=== PATIENT | female | born 1945 | race Caucasian/White ===

== ENCOUNTER 2016-10-09 11:41 | Inpatient (IN) ==
[2016-10-09 15:21] LABS: Basophils % 0.3 %; Eosinophils # 0.1 K/mcL (0.0-0.6); Eosinophils % 0.6 %; Hematocrit 29.5 % (35.3-44.9); Hemoglobin 9.6 g/dL (11.5-15.4); Immature Granulocytes % 0.7 % (0-4); Lymphocytes # 0.7 K/mcL (0.6-4.6); Lymphocytes % 5.6 %; Mean Corpuscular HGB Conc 32.5 g/dL (31.6-35.5); Mean Corpuscular Hemoglobin 30.9 pg (28.0-33.3); Mean Corpuscular Volume 94.9 fL (83.0-100.0); Mean Platelet Volume 9.5 fL (9.4-12.4); Monocytes # 0.5 K/mcL (0.0-1.3); Monocytes % 4.6 %; Neutrophils # 10.5 K/mcL (1.6-8.9); Platelet Count 389 K/mcL (140-400); Red Blood Count 3.11 M/mcL (3.82-4.97); Red Cell Distribution Width 15.4 % (11.5-14.5); Segmented Neutrophils % 88.2 %
[2016-10-09 15:27] LABS: INR 1.4; Prothrombin Time 15.2 Seconds (9.4-12.1)
[2016-10-09 15:35] LABS: Calcium 8.4 mg/dL (8.6-10.8); Potassium 2.6 mEq/L (3.5-4.5)
[2016-10-10 09:33] LABS: Acinetobacter baumannii by PCR Not Detected (Not Detect); Candida albicans by PCR Not Detected (Not Detect); Candida glabrata by PCR Not Detected (Not Detect); Candida krusei by PCR Not Detected (Not Detect); Candida parapsilosis by PCR Not Detected (Not Detect); Candida tropicalis by PCR Not Detected (Not Detect); Enterococcus by PCR Not Detected (Not Detect); Escherichia coli by PCR Not Detected (Not Detect); Klebsiella oxytoca by PCR Not Detected (Not Detect); Klebsiella pneumoniae by PCR Not Detected (Not Detect); Pseudomonas aeruginosa by PCR Not Detected (Not Detect); Serratia marcescens by PCR Not Detected (Not Detect); Staphylococcus aureus by PCR ***DETECTED*** (Not Detect); Streptococcus agalactiae(B)PCR Not Detected (Not Detect); Streptococcus by PCR Not Detected (Not Detect); Streptococcus pneumoniae PCR Not Detected (Not Detect); Streptococcus pyogenes (A) PCR Not Detected (Not Detect); mecA Methicillin-Resist Gene ***DETECTED*** (Not Detect)
[2016-10-10 09:44] LABS: Calcium 8.9 mg/dL (8.6-10.8); Potassium 3.2 mEq/L (3.5-4.5)
[2016-10-11 06:12] LABS: Hematocrit 26.1 % (35.3-44.9); Hemoglobin 8.4 g/dL (11.5-15.4); Mean Corpuscular HGB Conc 32.2 g/dL (31.6-35.5); Mean Corpuscular Hemoglobin 31.5 pg (28.0-33.3); Mean Corpuscular Volume 97.8 fL (83.0-100.0); Mean Platelet Volume 9.6 fL (9.4-12.4); Platelet Count 417 K/mcL (140-400); Red Blood Count 2.67 M/mcL (3.82-4.97); Red Cell Distribution Width 15.8 % (11.5-14.5)
[2016-10-11 06:25] LABS: Calcium 9.3 mg/dL (8.6-10.8); Potassium 3.9 mEq/L (3.5-4.5)
[2016-10-12 06:04] LABS: Hematocrit 23.2 % (35.3-44.9); Hemoglobin 7.5 g/dL (11.5-15.4); Immature Platelets 2.8 % (1.1-6.1); Mean Corpuscular HGB Conc 32.3 g/dL (31.6-35.5); Mean Corpuscular Hemoglobin 31.1 pg (28.0-33.3); Mean Corpuscular Volume 96.3 fL (83.0-100.0); Mean Platelet Volume 9.5 fL (9.4-12.4); Red Blood Count 2.41 M/mcL (3.82-4.97); Red Cell Distribution Width 15.9 % (11.5-14.5)
[2016-10-12 06:14] LABS: Calcium 9.3 mg/dL (8.6-10.8); Potassium 3.9 mEq/L (3.5-4.5)
[2016-10-12 07:18] LABS: Albumin/Globulin Ratio 0.3 (1.1-2.2); Alkaline Phosphatase 89 Units/L (38-126); Aspartate Amino Transferase 12 Units/L (5-34); Bilirubin,Direct 0.1 mg/dL (0.0-0.5); Bilirubin,Total 0.1 mg/dL (0.2-1.2); Globulin 4.4 g/dL (2.4-3.5); Phosphorous 5.1 mg/dL (2.3-4.7); Total Protein 5.6 g/dL (6.0-8.3)
[2016-10-12 07:20] LABS: Alanine Aminotransferase < 6 Units/L (0-55); Albumin 1.2 g/dL (3.5-5.0)
[2016-10-13 05:26] LABS: Hematocrit 27.9 % (35.3-44.9); Hemoglobin 9.3 g/dL (11.5-15.4); Mean Corpuscular HGB Conc 33.3 g/dL (31.6-35.5); Mean Corpuscular Hemoglobin 30.8 pg (28.0-33.3); Mean Corpuscular Volume 92.4 fL (83.0-100.0); Mean Platelet Volume 9.5 fL (9.4-12.4); Platelet Count 342 K/mcL (140-400); Red Blood Count 3.02 M/mcL (3.82-4.97); Red Cell Distribution Width 17.4 % (11.5-14.5)
[2016-10-13 05:34] LABS: Calcium 9.5 mg/dL (8.6-10.8)
[2016-10-13 08:24] LABS: Hepatitis B Surface Antibody 0.06 mIU/mL; Hepatitis B Surface Antigen Nonreactive (Nonreactive)
[2016-10-15 05:27] LABS: Hematocrit 29.7 % (35.3-44.9); Hemoglobin 9.5 g/dL (11.5-15.4); Mean Corpuscular Hemoglobin 30.3 pg (28.0-33.3); Mean Corpuscular Volume 94.6 fL (83.0-100.0); Mean Platelet Volume 9.3 fL (9.4-12.4); Platelet Count 348 K/mcL (140-400); Red Blood Count 3.14 M/mcL (3.82-4.97); Red Cell Distribution Width 16.3 % (11.5-14.5)
[2016-10-15 05:41] LABS: Calcium 9.4 mg/dL (8.6-10.8); Potassium 3.8 mEq/L (3.5-4.5)
[2016-10-16 07:16] LABS: Calcium 9.5 mg/dL (8.6-10.8)
[2016-10-16 07:49] LABS: Hemoglobin 10.5 g/dL (11.5-15.4); Mean Corpuscular HGB Conc 31.8 g/dL (31.6-35.5); Mean Corpuscular Volume 94.3 fL (83.0-100.0); Mean Platelet Volume 9.3 fL (9.4-12.4); Platelet Count 397 K/mcL (140-400); Red Cell Distribution Width 15.9 % (11.5-14.5)
[2016-10-17 07:06] LABS: Calcium 9.7 mg/dL (8.6-10.8); Potassium 3.9 mEq/L (3.5-4.5)
[2016-10-17 07:49] VITALS: BP 159/80
== END 2016-10-17 16:45 | disposition home health service (06) | DRG 853 ==
LOC: 2ANU 11:52 → SUATTDRO 11:52
PROVIDERS: ADMIT Podiatrist Foot Surgery; ATTEND Podiatrist Foot Surgery

== ENCOUNTER 2016-12-13 14:38 | Inpatient (IN) ==
--- NOTE | 2016-12-13 15:48 | Emergency Department Note ---
Disposition Clinical Impression: Gastroenteritis Disposition: Home, Self-Care Condition: Good Instructions: Gastroenteritis (ED) Reasons to Return/Additional Instructions: Worsening symptoms, any general concerns. Follow-up with your Dr in one-two days. Prescriptions: Ondansetron ODT [Zofran ODT] 4 mg PO Q8HR #15 tab.rapdis Diphenoxylate/Atropine [Lomotil 2.5 mg/0.025 mg] 1 each PO QID #20 tablet Referrals: NO,PCP [Non-Partnered Physician] - Forms: ED Satisfaction Letter Nausea/Vomiting/Diarrhea HPI - General Chief complaint: ED Nausea/Vomiting/Diarrhea Stated complaint: diarrhea/vomiting Time Seen by Provider: 12/13/16 15:07 Source: patient Limitations: no limitations Nursing Notes Reviewed: Yes Vital Signs Reviewed: Yes - History of Present Illness HPI Narrative: Patient presents with complaint nausea vomiting diarrhea this on for 4 days. Patient denies any sick contacts. Patient has had a fever up to 101. Patient denies shortness of breath or chest pain. Patient denies numbness and tingling associated with this. Patient denies prior history of similar symptoms. Patient does have a history of ulcers on her feet and she is unsure if this is related to this. - Related Data Home Medications Medication Instructions Recorded Confirmed Cholecalciferol (Vitamin D3) 1,000 unit PO DAILY 10/10/15 10/09/16 [Vitamin D3] Ergocalciferol (VITAMIN D2) 50,000 unit PO MOTH 10/10/15 10/09/16 [Vitamin D2 (50,000 UNIT)] Insulin LISPRO [HumaLOG] 0 units SQ TIDWM 10/10/15 10/09/16 Multivitamin [Multi-Day Vitamins] 1 tab PO DAILY 10/10/15 10/09/16 Acetaminophen [Tylenol] 1,000 mg PO HS PRN 10/09/16 10/09/16 Cinacalcet [Sensipar] 30 mg PO DAILY 10/09/16 10/09/16 DiphenhydraMINE [Benadryl] 25 mg PO HS 10/09/16 10/09/16 Gabapentin [Neurontin] 100 mg PO TID 10/09/16 10/09/16 Lidocaine/Prilocaine [Emla] 1 appl TP PRN PRN 10/09/16 10/09/16 Sodium Thiosulfate 12.5 gm IV MOWEFR 10/09/16 Previous Rx's Medication Instructions Recorded Aspirin 81 mg PO DAILY #30 tab.chew 08/09/16 Atorvastatin [Lipitor] 40 mg PO HS #30 tablet 08/09/16 Clopidogrel [Plavix] 75 mg PO DAILY #30 tablet 08/09/16 Clopidogrel [Plavix] 75 mg PO DAILY tablet 10/16/16 Vancomycin [Vancocin] 0 each IVPB AD PRN #0 vial 10/16/16 Diphenoxylate/Atropine [Lomotil 1 each PO QID #20 tablet 12/13/16 2.5 mg/0.025 mg] Ondansetron ODT [Zofran ODT] 4 mg PO Q8HR #15 tab.rapdis 12/13/16 Allergies Allergy/AdvReac Type Severity Reaction Status Date / Time Penicillins Allergy Hives Verified 03/22/16 14:43 All systems ED: reviewed and negative except as stated. Past Medical History - Past Medical History Source: patient Medical history: Reports: diabetes, dialysis, hyperlipidemia, hypertension, kidney stones, renal disease, thyroid disease, other Surgical history: Reports: carotid endarterectomy, hysterectomy, thyroidectomy, other Psychiatric history: Reports: no psych history NURSE CHARGE RN history: Reports: no NURSE CHARGE RN history - Social History Smoking Status: Never smoker Smokeless Tobacco Status: No Alcohol use: Reports: none Drug use: Reports: none Physical Exam - General Limitations: no limitations General appearance: alert - Head Head exam: atraumatic, normocephalic, normal inspection - Eye Eye exam: Present: normal appearance, PERRL, EOMI - ENT ENT exam: normal exam, normal oropharynx, mucous membranes moist - Neck Neck exam: Present: normal inspection, full ROM, trachea midline - Chest Chest inspection: Present: normal inspection, symmetric chest wall rise - Respiratory Respiratory exam: Present: normal lung sounds bilaterally - Cardiovascular Cardiovascular exam: Present: regular rate, normal rhythm, normal heart sounds - Abdominal Exam Abdominal exam: Present: soft, Non-Tender. Absent: tenderness, distention, guarding, rebound, rigidity - Extremities Exam Extremities exam: Present: normal inspection, full ROM. Absent: tenderness, pedal edema - Back Exam Back exam: Present: normal inspection, full ROM. Absent: tenderness - Neurological Exam Neurological exam: Present: alert, oriented X3 - Psychiatric Psychiatric exam: Present: normal affect, normal mood - Skin Skin exam: Present: warm, dry, intact, normal color Course Vital Signs Temperature 99.0 F 12/13/16 14:42 Pulse Rate 84 12/13/16 14:42 Respiratory Rate 16 12/13/16 14:42 Blood Pressure 149/69 12/13/16 14:42 O2 Sat by Pulse Oximetry 94 12/13/16 14:42 Temperature 99.0 F 12/13/16 14:42 Pulse Rate 86 12/13/16 19:21 Respiratory Rate 16 12/13/16 19:21 Blood Pressure 139/58 12/13/16 19:21 O2 Sat by Pulse Oximetry 94 12/13/16 19:21 Oxygen Delivery Oxygen Delivery Room Air Nausea/Vomiting/Diarrhea - Differential Diagnosis Likely: traveler's diarrhea, food poisoning, gastroenteritis, clostridium difficile infection, drug-induced nausea and vomitting, dehydration - Lab Data Lab results reviewed: Yes I reviewed the patient's lab results. Result diagrams: 12/13/16 15:57 12/13/16 15:57 Lab Results 12/13/16 12/13/16 12/13/16 Range/Units 15:57 15:57 15:57 WBC 7.4 (4.3-11.1) K/mcL RBC 3.29 L (3.82-4.97) M/mcL Hgb 10.0 L (11.5-15.4) g/dL Hct 32.0 L (35.3-44.9) % MCV 97.3 (83.0-100.0) fL MCH 30.4 (28.0-33.3) pg MCHC 31.3 L (31.6-35.5) g/dL RDW 16.5 H (11.5-14.5) % Plt Count 325 (140-400) K/mcL MPV 9.1 L (9.4-12.4) fL Immature Gran % 0.8 (0-4) % Seg Neutrophils % 84.1 % Lymphocytes % 6.5 % Monocytes % 7.6 % Eosinophils % 0.5 % Basophils % 0.5 % Neutrophils # 6.2 (1.6-8.9) K/mcL Lymphocytes # 0.5 L (0.6-4.6) K/mcL Monocytes # 0.6 (0.0-1.3) K/mcL Eosinophils # 0.0 (0.0-0.6) K/mcL Basophils # 0.0 (0.0-0.2) K/mcL Sodium 138 (136-145) mEq/L Potassium 3.4 L (3.5-4.5) mEq/L Chloride 100 (98-109) mEq/L Carbon Dioxide 28 (19-29) mEq/L BUN 6 L (7-20) mg/dL Creatinine 2.11 H (0.57-1.11) mg/dL Est GFR ( Amer) 28 L (> 60) Est GFR (Non-Af Amer) 23 L (> 60) BUN/Creatinine Ratio 3 L (6-26) Glucose 107 H (70-99) mg/dL Calculated Osmolality 284 (280-300) Lactic Acid (0.5-2.2) mmol/L Calcium 8.0 L (8.6-10.8) mg/dL Total Bilirubin 0.4 (0.2-1.2) mg/dL Direct Bilirubin 0.2 (0.0-0.5) mg/dL Indirect Bilirubin 0.2 (0.0-1.2) mg/dL AST 14 (5-34) Units/L ALT 8 (0-55) Units/L Alkaline Phosphatase 92 (38-126) Units/L Serum Total Protein 6.6 (6.0-8.3) g/dL Albumin 2.1 L (3.5-5.0) g/dL Globulin 4.5 H (2.4-3.5) g/dL Albumin/Globulin Ratio 0.5 L (1.1-2.2) Urine Color (Yellow) Urine Clarity (Clear) Urine pH (5.0-8.0) pH Units Ur Specific [place] (1.010-1.025) Urine Protein (Neg-Trace) mg/dL Urine Glucose (UA) (Normal) mg/dL Urine Ketones (Negative) mg/dL Urine Blood (Negative) Urine Nitrite (Negative) Urine Bilirubin (Negative) Urine Urobilinogen (Normal) mg/dL Ur Leukocyte Esterase (Negative) Urine Microscopic RBC (0-3) per hpf Urine Microscopic WBC (0-3) per hpf Ur Squamous Epith Cells (None-Few) per lpf Urine Bacteria (None-Few) per hpf Hyaline Casts (None-Few) per lpf Urine Yeast (None Seen) per hpf Ur Culture Indicated? (NO) 12/13/16 12/13/16 Range/Units 15:57 19:28 WBC (4.3-11.1) K/mcL RBC (3.82-4.97) M/mcL Hgb (11.5-15.4) g/dL Hct (35.3-44.9) % MCV (83.0-100.0) fL MCH (28.0-33.3) pg MCHC (31.6-35.5) g/dL RDW (11.5-14.5) % Plt Count (140-400) K/mcL MPV (9.4-12.4) fL Immature Gran % (0-4) % Seg Neutrophils % % Lymphocytes % % Monocytes % % Eosinophils % % Basophils % % Neutrophils # (1.6-8.9) K/mcL Lymphocytes # (0.6-4.6) K/mcL Monocytes # (0.0-1.3) K/mcL Eosinophils # (0.0-0.6) K/mcL Basophils # (0.0-0.2) K/mcL Sodium (136-145) mEq/L Potassium (3.5-4.5) mEq/L Chloride (98-109) mEq/L Carbon Dioxide (19-29) mEq/L BUN (7-20) mg/dL Creatinine (0.57-1.11) mg/dL Est GFR ( Amer) (> 60) Est GFR (Non-Af Amer) (> 60) BUN/Creatinine Ratio (6-26) Glucose (70-99) mg/dL Calculated Osmolality (280-300) Lactic Acid 2.4 H (0.5-2.2) mmol/L Calcium (8.6-10.8) mg/dL Total Bilirubin (0.2-1.2) mg/dL Direct Bilirubin (0.0-0.5) mg/dL Indirect Bilirubin (0.0-1.2) mg/dL AST (5-34) Units/L ALT (0-55) Units/L Alkaline Phosphatase (38-126) Units/L Serum Total Protein (6.0-8.3) g/dL Albumin (3.5-5.0) g/dL Globulin (2.4-3.5) g/dL Albumin/Globulin Ratio (1.1-2.2) Urine Color Yellow (Yellow) Urine Clarity Cloudy A (Clear) Urine pH 8.0 (5.0-8.0) pH Units Ur Specific [place] 1.011 (1.010-1.025) Urine Protein >=300 H (Neg-Trace) mg/dL Urine Glucose (UA) 100 H (Normal) mg/dL Urine Ketones Negative (Negative) mg/dL Urine Blood Moderate H (Negative) Urine Nitrite Negative (Negative) Urine Bilirubin Negative (Negative) Urine Urobilinogen Normal (Normal) mg/dL Ur Leukocyte Esterase Large H (Negative) Urine Microscopic RBC 5-15 H (0-3) per hpf Urine Microscopic WBC TNTC H (0-3) per hpf Ur Squamous Epith Cells Many H (None-Few) per lpf Urine Bacteria Few (None-Few) per hpf Hyaline Casts None Seen (None-Few) per lpf Urine Yeast Few H (None Seen) per hpf Ur Culture Indicated? YES A (NO) - Radiology Data Radiology results reviewed: Yes I reviewed the patient's radiology results. Abdomen/Pelvis CT 12/13/16 17:16 IMPRESSION: 1. Left nephrolithiasis including staghorn calculi within the left renal pelvis, unchanged from 2014. 2. Cholelithiasis. 3. Small pleural effusions with adjacent airspace disease that could represent atelectasis and/or pneumonia. 4. Calcifications within a hypodense lesion along segment 2 of the liver have increased from 2014. This is of uncertain clinical significance. If clinically warranted, nonemergent [facility] liver MRI can be performed for further evaluation. D/ / Miki Doran MD / Miki Doran MD Interpreting Provider: Miki Doran MD
[2016-12-13] MEDS ORDERED: 0.9 % Sodium Chloride 250 ML IVC ONE (15:52)
[2016-12-13] MEDS ORDERED: 0.9 % Sodium Chloride 250 ML ONE (15:52)
[2016-12-13] MEDS ORDERED: Ondansetron 4 MG/2 ML VIAL IV ONE (15:53)
[2016-12-13] MEDS ORDERED: *HR* Morphine 2 MG/ML SYRINGE IV ONE (16:06)
[2016-12-13 16:07] LABS: Basophils % 0.5 %; Eosinophils % 0.5 %; Immature Granulocytes % 0.8 % (0-4); Lymphocytes # 0.5 K/mcL (0.6-4.6); Lymphocytes % 6.5 %; Mean Corpuscular HGB Conc 31.3 g/dL (31.6-35.5); Mean Corpuscular Hemoglobin 30.4 pg (28.0-33.3); Mean Corpuscular Volume 97.3 fL (83.0-100.0); Mean Platelet Volume 9.1 fL (9.4-12.4); Monocytes # 0.6 K/mcL (0.0-1.3); Monocytes % 7.6 %; Neutrophils # 6.2 K/mcL (1.6-8.9); Platelet Count 325 K/mcL (140-400); Red Blood Count 3.29 M/mcL (3.82-4.97); Red Cell Distribution Width 16.5 % (11.5-14.5); Segmented Neutrophils % 84.1 %
[2016-12-13 16:25] LABS: Albumin 2.1 g/dL (3.5-5.0); Albumin/Globulin Ratio 0.5 (1.1-2.2); Bilirubin,Direct 0.2 mg/dL (0.0-0.5); Bilirubin,Indirect 0.2 mg/dL (0.0-1.2); Bilirubin,Total 0.4 mg/dL (0.2-1.2); Globulin 4.5 g/dL (2.4-3.5); Total Protein 6.6 g/dL (6.0-8.3)
[2016-12-13 16:26] LABS: Potassium 3.4 mEq/L (3.5-4.5)
[2016-12-13] MEDS ORDERED: *HR* Morphine 2 MG/ML SYRINGE IVP ONE (19:06)
[2016-12-13] MEDS ORDERED: Ondansetron 4 MG/2 ML VIAL IVP ONE (19:06)
[2016-12-13 19:40] LABS: Bilirubin,Urine Negative (Negative); Blood,Urine Moderate (Negative); Clarity,Urine Cloudy (Clear); Color,Urine Yellow (Yellow); Glucose,Urine (UA) 100 mg/dL (Normal); Ketones,Urine Negative (Negative); Leukocyte Esterase,Urine Large (Negative); Nitrite,Urine Negative (Negative); Protein,Urine >=300 mg/dL (Neg-Trace); Specific Gravity,Urine 1.011 (1.010-1.025); Urobilinogen,Urine Normal (Normal)
[2016-12-13 19:43] LABS: Bacteria,Urine Few per hpf (None-Few); Hyaline Casts,Urine None Seen per lpf (None-Few); Squamous Epithelial Cell,Urine Many per lpf (None-Few); WBC,Urine TNTC per hpf (0-3)
[2016-12-13 19:52] LABS: Yeast,Urine Few per hpf (None Seen)
[2016-12-13 21:05] LABS: ABG Base Excess 5.8 mEq/L (-2.0 to 3.0); ABG HCO3 30.6 mEQ/L (21-27); ABG Oxygen Saturation 86 % (95-98); ABG PCO2 45 mmHg (35-45); ABG PH 7.44 pH Units (7.32-7.45); Blood Gas FiO2 21 %
[2016-12-13 21:06] LABS: ABG PO2 49 mmHg (85-104)
--- NOTE | 2016-12-14 00:25 | Emergency Department Note ---
Disposition Clinical Impression: Hypoxia Disposition: Admitted As Inpatient Condition: Good Instructions: Gastroenteritis (ED) Reasons to Return/Additional Instructions: Worsening symptoms, any general concerns. Follow-up with your Dr in one-two days. Prescriptions: Ondansetron ODT [Zofran ODT] 4 mg PO Q8HR #15 tab.rapdis Diphenoxylate/Atropine [Lomotil 2.5 mg/0.025 mg] 1 each PO QID #20 tablet Referrals: NO,PCP [Non-Partnered Physician] - Forms: ED Satisfaction Letter Nausea/Vomiting/Diarrhea HPI - General Chief complaint: ED Nausea/Vomiting/Diarrhea Stated complaint: diarrhea/vomiting Time Seen by Provider: 12/13/16 15:07 Source: patient Limitations: no limitations Nursing Notes Reviewed: Yes Vital Signs Reviewed: Yes - History of Present Illness HPI Narrative: Patient complains of diarrhea going for 4 days. Patient is symptoms came on and persisted. Patient has been tolerating some by mouth but states most of it comes up. Patient denies chest pain denies shortness of breath associated with this. Patient has dizziness this complains of weakness. feels that her symptoms may be secondary to the wounds on her feet that these taken care of by Dr. Du. - Related Data Home Medications Medication Instructions Recorded Confirmed Cholecalciferol (Vitamin D3) 1,000 unit PO DAILY 10/10/15 10/09/16 [Vitamin D3] Ergocalciferol (VITAMIN D2) 50,000 unit PO MOTH 10/10/15 10/09/16 [Vitamin D2 (50,000 UNIT)] Insulin LISPRO [HumaLOG] 0 units SQ TIDWM 10/10/15 10/09/16 Multivitamin [Multi-Day Vitamins] 1 tab PO DAILY 10/10/15 10/09/16 Acetaminophen [Tylenol] 1,000 mg PO HS PRN 10/09/16 10/09/16 Cinacalcet [Sensipar] 30 mg PO DAILY 10/09/16 10/09/16 DiphenhydraMINE [Benadryl] 25 mg PO HS 10/09/16 10/09/16 Gabapentin [Neurontin] 100 mg PO TID 10/09/16 10/09/16 Lidocaine/Prilocaine [Emla] 1 appl TP PRN PRN 10/09/16 10/09/16 Sodium Thiosulfate 12.5 gm IV MOWEFR 10/09/16 Previous Rx's Medication Instructions Recorded Aspirin 81 mg PO DAILY #30 tab.chew 08/09/16 Atorvastatin [Lipitor] 40 mg PO HS #30 tablet 08/09/16 Clopidogrel [Plavix] 75 mg PO DAILY #30 tablet 08/09/16 Clopidogrel [Plavix] 75 mg PO DAILY tablet 10/16/16 Vancomycin [Vancocin] 0 each IVPB AD PRN #0 vial 10/16/16 Diphenoxylate/Atropine [Lomotil 1 each PO QID #20 tablet 12/13/16 2.5 mg/0.025 mg] Ondansetron ODT [Zofran ODT] 4 mg PO Q8HR #15 tab.rapdis 12/13/16 Allergies Allergy/AdvReac Type Severity Reaction Status Date / Time Penicillins Allergy Hives Verified 03/22/16 14:43 All systems ED: reviewed and negative except as stated. Past Medical History - Past Medical History Source: patient, obtained from family Medical history: Reports: diabetes, dialysis, hyperlipidemia, hypertension, kidney stones, renal disease, thyroid disease, other Surgical history: Reports: carotid endarterectomy, hysterectomy, thyroidectomy, other Psychiatric history: Reports: no psych history NOC ANALYST history: Reports: no NOC ANALYST history - Social History Smoking Status: Never smoker Smokeless Tobacco Status: No Alcohol use: Reports: none Drug use: Reports: none Physical Exam - General Limitations: no limitations General appearance: alert - Head Head exam: atraumatic, normocephalic, normal inspection - Eye Eye exam: Present: normal appearance, PERRL, EOMI - ENT ENT exam: normal exam, normal oropharynx, mucous membranes moist - Neck Neck exam: Present: normal inspection, full ROM, trachea midline - Chest Chest inspection: Present: normal inspection, symmetric chest wall rise - Respiratory Respiratory exam: Present: normal lung sounds bilaterally - Cardiovascular Cardiovascular exam: Present: regular rate, normal rhythm, normal heart sounds - Abdominal Exam Abdominal exam: Present: soft, Non-Tender. Absent: tenderness, distention, guarding, rebound, rigidity - Extremities Exam Extremities exam: Present: normal inspection, full ROM. Absent: tenderness, pedal edema - Back Exam Back exam: Present: normal inspection, full ROM. Absent: tenderness - Neurological Exam Neurological exam: Present: alert, oriented X3 - Psychiatric Psychiatric exam: Present: normal affect, normal mood - Skin Skin exam: Present: warm, dry, intact, normal color (Lower extremities are bandaged), other Course Course Narrative: Patient workup was unremarkable. Patient was about to be discharged and nursing noted that the oxygen saturation was in the mid 80s. Patient is repositioned and given oxygen this did improve. After an observation period of approximately 2 hours patient did not have the ability to maintain her oxygen saturation. So discussed this patient with the hospitalist service will admit her for observation. Vital Signs Temperature 99.0 F 12/13/16 14:42 Pulse Rate 84 12/13/16 14:42 Respiratory Rate 16 12/13/16 14:42 Blood Pressure 149/69 12/13/16 14:42 O2 Sat by Pulse Oximetry 94 12/13/16 14:42 Temperature 99.2 F 12/13/16 21:10 Pulse Rate 83 12/13/16 23:53 Respiratory Rate 16 12/13/16 23:53 Blood Pressure 146/65 12/13/16 23:53 O2 Sat by Pulse Oximetry 99 12/13/16 23:53 Oxygen Delivery Oxygen Delivery Nasal Cannula Nausea/Vomiting/Diarrhea - Differential Diagnosis Likely: gastroenteritis, clostridium difficile infection, dehydration, bowel obstruction, ischemic bowel - Lab Data Lab results reviewed: Yes I reviewed the patient's lab results. Result diagrams: 12/13/16 15:57 12/13/16 15:57 Lab Results 12/13/16 12/13/16 12/13/16 Range/Units 15:57 15:57 15:57 WBC 7.4 (4.3-11.1) K/mcL RBC 3.29 L (3.82-4.97) M/mcL Hgb 10.0 L (11.5-15.4) g/dL Hct 32.0 L (35.3-44.9) % MCV 97.3 (83.0-100.0) fL MCH 30.4 (28.0-33.3) pg MCHC 31.3 L (31.6-35.5) g/dL RDW 16.5 H (11.5-14.5) % Plt Count 325 (140-400) K/mcL MPV 9.1 L (9.4-12.4) fL Immature Gran % 0.8 (0-4) % Seg Neutrophils % 84.1 % Lymphocytes % 6.5 % Monocytes % 7.6 % Eosinophils % 0.5 % Basophils % 0.5 % Neutrophils # 6.2 (1.6-8.9) K/mcL Lymphocytes # 0.5 L (0.6-4.6) K/mcL Monocytes # 0.6 (0.0-1.3) K/mcL Eosinophils # 0.0 (0.0-0.6) K/mcL Basophils # 0.0 (0.0-0.2) K/mcL ABG pH (7.32-7.45) pH Units ABG pCO2 (35-45) mmHg ABG pO2 (85-104) mmHg ABG HCO3 (21-27) mEQ/L ABG Total CO2 (20-26) mEq/L ABG O2 Saturation (95-98) % ABG Base Excess (-2.0 to 3.0) mEq/L Blood Gas Modality Inspired O2 % Sodium 138 (136-145) mEq/L Potassium 3.4 L (3.5-4.5) mEq/L Chloride 100 (98-109) mEq/L Carbon Dioxide 28 (19-29) mEq/L BUN 6 L (7-20) mg/dL Creatinine 2.11 H (0.57-1.11) mg/dL Est GFR ( Amer) 28 L (> 60) Est GFR (Non-Af Amer) 23 L (> 60) BUN/Creatinine Ratio 3 L (6-26) Glucose 107 H (70-99) mg/dL Calculated Osmolality 284 (280-300) Lactic Acid (0.5-2.2) mmol/L Calcium 8.0 L (8.6-10.8) mg/dL Total Bilirubin 0.4 (0.2-1.2) mg/dL Direct Bilirubin 0.2 (0.0-0.5) mg/dL Indirect Bilirubin 0.2 (0.0-1.2) mg/dL AST 14 (5-34) Units/L ALT 8 (0-55) Units/L Alkaline Phosphatase 92 (38-126) Units/L Serum Total Protein 6.6 (6.0-8.3) g/dL Albumin 2.1 L (3.5-5.0) g/dL Globulin 4.5 H (2.4-3.5) g/dL Albumin/Globulin Ratio 0.5 L (1.1-2.2) Urine Color (Yellow) Urine Clarity (Clear) Urine pH (5.0-8.0) pH Units Ur Specific [place] (1.010-1.025) Urine Protein (Neg-Trace) mg/dL Urine Glucose (UA) (Normal) mg/dL Urine Ketones (Negative) mg/dL Urine Blood (Negative) Urine Nitrite (Negative) Urine Bilirubin (Negative) Urine Urobilinogen (Normal) mg/dL Ur Leukocyte Esterase (Negative) Urine Microscopic RBC (0-3) per hpf Urine Microscopic WBC (0-3) per hpf Ur Squamous Epith Cells (None-Few) per lpf Urine Bacteria (None-Few) per hpf Hyaline Casts (None-Few) per lpf Urine Yeast (None Seen) per hpf Ur Culture Indicated? (NO) 12/13/16 12/13/16 12/13/16 Range/Units 15:57 19:28 20:55 WBC (4.3-11.1) K/mcL RBC (3.82-4.97) M/mcL Hgb (11.5-15.4) g/dL Hct (35.3-44.9) % MCV (83.0-100.0) fL MCH (28.0-33.3) pg MCHC (31.6-35.5) g/dL RDW (11.5-14.5) % Plt Count (140-400) K/mcL MPV (9.4-12.4) fL Immature Gran % (0-4) % Seg Neutrophils % % Lymphocytes % % Monocytes % % Eosinophils % % Basophils % % Neutrophils # (1.6-8.9) K/mcL Lymphocytes # (0.6-4.6) K/mcL Monocytes # (0.0-1.3) K/mcL Eosinophils # (0.0-0.6) K/mcL Basophils # (0.0-0.2) K/mcL ABG pH 7.44 (7.32-7.45) pH Units ABG pCO2 45 (35-45) mmHg ABG pO2 49 L* (85-104) mmHg ABG HCO3 30.6 H (21-27) mEQ/L ABG Total CO2 32.0 H (20-26) mEq/L ABG O2 Saturation 86 L (95-98) % ABG Base Excess 5.8 H (-2.0 to 3.0) mEq/L Blood Gas Modality RA Inspired O2 21 % Sodium (136-145) mEq/L Potassium (3.5-4.5) mEq/L Chloride (98-109) mEq/L Carbon Dioxide (19-29) mEq/L BUN (7-20) mg/dL Creatinine (0.57-1.11) mg/dL Est GFR ( Amer) (> 60) Est GFR (Non-Af Amer) (> 60) BUN/Creatinine Ratio (6-26) Glucose (70-99) mg/dL Calculated Osmolality (280-300) Lactic Acid 2.4 H (0.5-2.2) mmol/L Calcium (8.6-10.8) mg/dL Total Bilirubin (0.2-1.2) mg/dL Direct Bilirubin (0.0-0.5) mg/dL Indirect Bilirubin (0.0-1.2) mg/dL AST (5-34) Units/L ALT (0-55) Units/L Alkaline Phosphatase (38-126) Units/L Serum Total Protein (6.0-8.3) g/dL Albumin (3.5-5.0) g/dL Globulin (2.4-3.5) g/dL Albumin/Globulin Ratio (1.1-2.2) Urine Color Yellow (Yellow) Urine Clarity Cloudy A (Clear) Urine pH 8.0 (5.0-8.0) pH Units Ur Specific [place] 1.011 (1.010-1.025) Urine Protein >=300 H (Neg-Trace) mg/dL Urine Glucose (UA) 100 H (Normal) mg/dL Urine Ketones Negative (Negative) mg/dL Urine Blood Moderate H (Negative) Urine Nitrite Negative (Negative) Urine Bilirubin Negative (Negative) Urine Urobilinogen Normal (Normal) mg/dL Ur Leukocyte Esterase Large H (Negative) Urine Microscopic RBC 5-15 H (0-3) per hpf Urine Microscopic WBC TNTC H (0-3) per hpf Ur Squamous Epith Cells Many H (None-Few) per lpf Urine Bacteria Few (None-Few) per hpf Hyaline Casts None Seen (None-Few) per lpf Urine Yeast Few H (None Seen) per hpf Ur Culture Indicated? YES A (NO) - Radiology Data Radiology results reviewed: Yes I reviewed the patient's radiology results. Abdomen/Pelvis CT 12/13/16 17:16 IMPRESSION: 1. Left nephrolithiasis including staghorn calculi within the left renal pelvis, unchanged from 2014. 2. Cholelithiasis. 3. Small pleural effusions with adjacent airspace disease that could represent atelectasis and/or pneumonia. 4. Calcifications within a hypodense lesion along segment 2 of the liver have increased from 2014. This is of uncertain clinical significance. If clinically warranted, nonemergent [facility] liver MRI can be performed for further evaluation. D/ / Miki Doran MD / Miki Doran MD Interpreting Provider: Miki Doran MD Chest X-Ray 12/13/16 22:49 IMPRESSION: Interstitial edema with possible superimposed left base infiltrate and small left pleural effusion D/ / Richard Fernandez MD / Richard Fernandez MD Interpreting Provider: Richard Fernandez MD - EKG Data EKG attestation: Yes I reviewed and interpreted this EKG. EKG shows normal: sinus rhythm Rate: normal Rhythm: NSR Critical Care Time Total Critical Care Time: 30 Attestation: Critical care performed: Time is exclusive of separately billable procedures. Time includes: direct patient care, patient reassessment, coordination of patient care, interpretation of data (laboratory data, radiology data, and respiratory data), review of patient's medical records, medical consultation and documentation of patient care. Procedures included in critical care time: Procedures excluded from critical care time:
[2016-12-14] MEDS ORDERED: Ipratropium/Albuterol Neb 3 ML IH ONE (01:02)
[2016-12-14] MEDS ORDERED: Naloxone 0.4 MG/ML INJ IVP STA (01:39)
[2016-12-14] MEDS ORDERED: Albuterol 2.5 MG/3 ML NEBULIZER IH PRN (01:40)
[2016-12-14] MEDS ORDERED: *HR* Morphine 2 MG/ML SYRINGE IVP PRN (01:40)
[2016-12-14] MEDS ORDERED: Naloxone 0.4 MG/ML INJ IVP PRN (01:40)
[2016-12-14] MEDS ORDERED: Acetaminophen 325 MG TABLET PO PRN (01:40)
[2016-12-14] MEDS ORDERED: *HR* Dextrose 50 % in Water (Syg) 50 ML SYRINGE IVP PRN (01:51)
[2016-12-14] MEDS ORDERED: Dextrose Gel 15 GM PO PRN ×2 (01:51)
[2016-12-14] MEDS ORDERED: D5% in Water 1,000 ML IVC PRN (01:51)
[2016-12-14 02:10] LABS: Basophils # 0.1 K/mcL (0.0-0.2); Basophils % 0.7 %; Eosinophils # 0.1 K/mcL (0.0-0.6); Eosinophils % 0.8 %; Hematocrit 28.6 % (35.3-44.9); Hemoglobin 9.1 g/dL (11.5-15.4); Immature Granulocytes % 0.4 % (0-4); Lymphocytes # 1.4 K/mcL (0.6-4.6); Lymphocytes % 19.5 %; Mean Corpuscular HGB Conc 31.8 g/dL (31.6-35.5); Mean Corpuscular Hemoglobin 31.2 pg (28.0-33.3); Mean Corpuscular Volume 97.9 fL (83.0-100.0); Monocytes # 0.8 K/mcL (0.0-1.3); Monocytes % 10.7 %; Neutrophils # 4.8 K/mcL (1.6-8.9); Platelet Count 280 K/mcL (140-400); Red Blood Count 2.92 M/mcL (3.82-4.97); Red Cell Distribution Width 16.5 % (11.5-14.5); Segmented Neutrophils % 67.9 %
[2016-12-14 02:22] LABS: Hemoglobin A1C 4.4 %
[2016-12-14 02:27] LABS: Alanine Aminotransferase < 6 Units/L (0-55); Albumin 1.8 g/dL (3.5-5.0); Albumin/Globulin Ratio 0.5 (1.1-2.2); Alkaline Phosphatase 86 Units/L (38-126); Aspartate Amino Transferase 11 Units/L (5-34); BUN/Creatinine Ratio 3 (6-26); Bilirubin,Total 0.4 mg/dL (0.2-1.2); Blood Urea Nitrogen 8 mg/dL (7-20); Calcium 8.1 mg/dL (8.6-10.8); Carbon Dioxide 28 mEq/L (19-29); Chloride 102 mEq/L (98-109); Cholesterol 102 mg/dL (< 200); Glucose 83 mg/dL (70-99); HDL Cholesterol 34 mg/dL (40-59); LDL Cholesterol,Calculated 53 mg/dL (0-99); Magnesium 1.3 mg/dL (1.6-2.6); Osmolality,Calculated 287 (280-300); Phosphorous 3.4 mg/dL (2.3-4.7); Potassium 3.7 mEq/L (3.5-4.5); Sodium 140 mEq/L (136-145); Total Protein 5.8 g/dL (6.0-8.3); Triglycerides 73 mg/dL (< 150); eGFR For African Americans 21 (> 60); eGFR For Non-African Americans 18 (> 60)
--- NOTE | 2016-12-14 03:27 | Internal Med History&Physical ---
Date of Encounter: 12/14/16 Time of Encounter: 01:30 Assessment and Plan (1) Acute gastroenteritis Current visit: Yes Status: Acute . (2) Altered mental status Current visit: Yes Status: Acute . Qualifiers: Altered mental status type: transient alteration of awareness Qualified Code(s): R40.4 - Transient alteration of awareness (3) ESRD (end stage renal disease) on dialysis Current visit: Yes Status: Chronic . 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 (5) Hypoxia Current visit: Yes Status: Acute . Internal Medicine - H&P: HPI Chief complaint: Nausea vomiting diarrhea. Admitted From: Emergency Dept Plans for Post Hospital Care: Home History of present illness: Ms. Eng is a 71 year old female with history significant for type II DM, ESRD -HD dependent, HTN, HLD, DM periph neuropathy/nephropathy, lower extremities calciphylaxis/ulcerations, OA/OP, postsurgical hypothyroidism, PAD, nonsmoker, etc.. Patient is admitted to [facility] via the emergency department when she presented with concerns of 4 days of nausea vomiting and diarrhea. She denied any sick contacts. Denies any dietary indiscretions. She has Sunday hemodialysis runs and completed dialysis on the day of presentation to the ED.symptoms relate no better or worse. Denied any dietary indiscretions. Denied any apparent sick contacts. Denied any changes in nonprescribed medical therapies. She reports experiencing a fever up to 101 degrees Fahrenheit feeling of chills and malaise. Denied any upper or lower respiratory complaints, chest pain, abdominal pain, flank pain, headache or unilateral weakness. Stools were loose and watery. Denied any evidence of any blood or mucus. Emesis similarly was without any evidence of blood or coffee grounds. Vital signs were stable in the ED except for note of a temperature of 99 degrees. O2 saturation by pulse oximetry was 94%. Addressing patient's general discomfort more specific to her lower extremities (e.g., calciphylaxis with ulcerations, peripheral neuropathy, etc.) she received intravenous morphine and Zofran. This combination caused her to become more lethargic and hypoxic on room air. This concerned not necessitated overnight stay for observation. Screening laboratory noted a WBC of 7.4 hemoglobin of 10 platelets 325,000. Differential was benign. Metabolic panel noted a BUN of 6 creatinine of 2.11 GFR 23. Glucose 107 osmolality 284. Sodium 138 potassium 3.4. Hepatic function benign. Albumin 2.1 total protein 6.6. Calcium 8. Lactic acid 2.4. Urinalysis cloudy appearance large protein. Positive glucose. Moderate blood. Large leukocyte esterase. 15 RBC. Too Numerous to count WBC. Many epithelial cells. Few bacteria. Few yeast. CT of abdomen showed left nephrolithiasis including staghorn calculi within the left renal pelvis unchanged from 2014. Cholelithiasis. Small pleural effusions. Adjacent airspace disease representing atelectasis versus pneumonia. Calcifications within a hypodense lesion of the liver increased since 2014. Uncertain significance. There is no evidence for bowel obstruction. A position consistent with chronic inflammation. Evidence of prior peritoneal Allises catheter in the right hemipelvis. Bladder unremarkable. No significant adenopathy. Extensive atherosclerotic disease without aneurysm. Mild anasarca. Osteopenia. Chest x-ray demonstrated interstitial edema possibly superimposed left base infiltrate and small left pleural effusion. She presented with. Concern for early of gastrointestinal complaints. Findings however reveal suggestion of possible pneumonia left lower lobe with associated effusion. Findings also suggests possible urinary tract infection with both bacteria and yeast. Screening laboratory studies and vital signs did not define seizures or sepsis at the time of admission. Patient however is at increased risk for further clinical decline and morbidity given her end-stage renal disease and associated comorbidities. Workup and treatment will proceed comprehensibly. The patient was visited and interviewed and examined. Cumulative laboratory and radiographic data base will be considered and discussed. Pertinent ancillary medical records including ECW and PCI documentation when available was reviewed and considered. Given the patient's presenting concerns, past medical history, clinical findings and symptoms, she is admitted at this time will undergo further evaluation and disposition. Orders were written as per the computerized physician order tracer system.......................................................................... .................... Consultative opinions will be sought as clinical circumstances justify. Nephrology/dialysis team consultation. Wound care consultation. Pain management needs will be addressed. Laboratory+radiographic data base will be updated as appropriate. Studies include: Cultures of blood and urine and sputum, GI stool panel, cardiac injury panel, BNP, metabolic and hematologic panel, magnesium, phosphorus, ionized calcium, thyroid panel, lipid profile, A1c, C-peptide, CRP, sedimentation rate, respiratory infection profile, respiratory virus panel, blood gas, lactic acid, UA, serologies, etc. Precautions: Aspiration, fall, delirium protocol/surveillance initiated. Telemetry with continuous hemodynamic monitoring and pulse oximetry initiated. Empiric antibody coverage: Intravenous Vancomycin, zosyn, levaquin and diflucan pending culture data. Special studies: CT chest/abd/pelvis, chest x-ray, telemetry, EKG. Pulmonary toilet: Incentive spirometry, aerosol bronchodilator, mucolytic, antitussive, supplemental oxygen. Corticosteroid therapyPRN. CPAP/BiPAP supplemental oxygen delivery employedPRN. Aerosol Mucomyst therapy may be employedPRN. Fluid and electrolyte repletion efforts will proceed. Careful attention to fluid balance and renal recovery will be emphasized. Avoidance of nephrotoxic exposure and adverse drug drug interaction in the setting of impaired renal function will be monitored closely. Acute coronary syndrome protocol/surveillance initiated. DVT and PUD prophylaxis initiated: PPI therapy, intermittent pneumatic cuffs. Subcutaneous heparin. Early ambulation will be encouraged. Immunization updates recommended. Influenza and pneumococcal vaccinations as part of ongoing preventative healthcare recommendations strongly recommended. Smoking cessation counseling briefly addressed. Patient is a nonsmoker. Advanced care directive discussion briefly addressed. Patient does not declare any healthcare restrictions at this time. Cardiovascular risk appraisal and cardiovascular risk reduction efforts will be emphasized. Physical+occupational therapy may be counseled to evaluate patient's functional capacity and progressive mobility as her circumstances justify. Sliding scale insulin coverage, ADA dietary restraint and schedule an as-needed basis fingerstick glucose assessments were initiated. Nutrition/diabetes education counseling may be considered as circumstances justify. Outpatient medication schedules will be reviewed, confirmed and facilitated as appropriate. Reconciliation of home treatments including adjustments, substitutions and reintroduction into the treatment regimen will address necessary maintenance therapies for chronic pre-existing medical conditions. Plan of care has been reviewed and discussed in detail with the patient. Questions addressed. Hospital course dictated by clinical findings, treatment response and potential consultative interventions. Patient is at risk for further acute clinical decline due to her age/frailty, presenting chief complaints and comorbid conditions. Condition is serious. Prognosis is guarded. CODE STATUS is reported as full. Past Med Surg Social Fam HX - Past Medical History Source: old records reviewed Medical history: arthritis, cancer, diabetes, dialysis, hyperlipidemia, hypertension, kidney stones, malignancy, myocardial infarction, osteoporosis, peripheral artery disease, renal disease, thyroid disease, other Psychiatric history: anxiety, depression - Past Surgical History Surgical History: carotid endarterectomy, hysterectomy, orthopedic, other, thyroidectomy, other - Social History Smoking Status: Never smoker Smokeless Tobacco Status: No Alcohol use: none Drug use: none Occupational status: unemployed, other Current living situation: Home, With Family Activity Level: Mostly sedentary Recent Out of Country Travel Within the Last 8 Weeks: No Exposure or Possible Exposure to Illness During Travel: No - Family History Mother Adopted: No Family Member Ethnicity: Non- Living Status: Hx Family Cardiac Disorders: No Hx Family Respiratory Disorders: Yes Hx Family Cancer: Yes Hx Family GI Disorders: No Hx Family Endocrine Disorder: No Hx Family Neuromuscular Disorders: No Hx Family Neurologic Disorders: No Hx Family HEENT Disorders: No Hx Family Autoimmune Disorders: No Father Adopted: No Family Member Ethnicity: Non- Living Status: Hx Family Cardiac Disorders: Yes Hx Family Respiratory Disorders: Yes Hx Family Cancer: No Hx Family GI Disorders: No Hx Family Endocrine Disorder: Yes Hx Family Neuromuscular Disorders: No Hx Family Neurologic Disorders: No Hx Family HEENT Disorders: No Hx Family Autoimmune Disorders: No Internal Medicine - H&P: Meds Insulin LISPRO [HumaLOG] 0 units SQ TIDWM 10/10/15 [History] Multivitamin [Multi-Day Vitamins] 1 tab PO DAILY 10/10/15 [History] Aspirin 81 mg PO DAILY #30 tab.chew 08/09/16 [Rx] Atorvastatin [Lipitor] 40 mg PO HS #30 tablet 08/09/16 [Rx] Acetaminophen [Tylenol] 1,000 mg PO HS PRN 10/09/16 [History] Cinacalcet [Sensipar] 30 mg PO DAILY 10/09/16 [History] DiphenhydraMINE [Benadryl] 25 mg PO HS 10/09/16 [History] Gabapentin [Neurontin] 100 mg PO TID 10/09/16 [History] Lidocaine/Prilocaine [Emla] 1 appl TP PRN PRN 10/09/16 [History] Sodium Thiosulfate 12.5 gm IV MOWEFR 10/09/16 [History] Clopidogrel [Plavix] 75 mg PO DAILY tablet 10/16/16 [Rx] Diphenoxylate/Atropine [Lomotil 2.5 mg/0.025 mg] 1 each PO QID #20 tablet [Rx] Ondansetron ODT [Zofran ODT] 4 mg PO Q8HR #15 tab.rapdis 12/13/16 [Rx] Allergies Penicillins Allergy (Verified 03/22/16 14:43) Hives All Systems PM: A 10-system review of systems was performed and is negative for pertinent findings except as documented above in the HPI. - Constitutional Constitutional: as per HPI, malaise, no chills, no fever(s), no night sweats - EENT Eyes: as per HPI, no change in vision, no discharge, no pain, no photophobia Ears: as per HPI, no ear discharge, no ear pain, no tinnitus Nose, mouth and throat: as per HPI, no dysphagia, no nasal discharge, no neck pain, no sore throat - Cardiovascular Cardiovascular ROS IM: as per HPI, no chest pain, no diaphoresis, no dyspnea, no lightheadedness, no palpitations, no syncope - Respiratory Respiratory: as per HPI, no cough, no dyspnea, no wheezing, no excessive phlegm production - Gastrointestinal Gastrointestinal: as per HPI, bloating, diarrhea, nausea, vomiting, no abdominal pain, no hematemesis, no hematochezia, no melena - Genitourinary Genitourinary: as per HPI, no change in urinary stream, no dysuria, no flank pain, no hematuria - Musculoskeletal Musculoskeletal ROS IM: as per HPI, no numbness, no tingling - Integumentary Integumentary IM: as per HPI, erythema, non-healing lesions, skin ulcer, sores, other, no rash, no unusual bruising - Neurological Neurological ROS: as per HPI, no confusion, no convulsions, no focal weakness, no numbness, no tingling, no tremor(s) - Psychiatric Psychiatric: as per HPI - Endocrine Endocrine IM: as per HPI - Hematologic/Lymphatic Hematologic/Lymphatic: as per HPI, no easy bruising - Allergic/Immunologic Allergic/Immunologic: as per HPI - Constitutional Vitals: Temp Pulse Resp BP Pulse Ox 98.4 F 88 17 134/69 94 12/14/16 02:08 12/14/16 02:08 12/14/16 02:08 12/14/16 02:08 12/14/16 02:08 Vital Signs Temp Pulse Resp BP Pulse Ox 12/14/16 02:08 98.4 F 88 17 134/69 94 12/14/16 01:17 16 149/67 12/13/16 23:53 83 16 146/65 99 12/13/16 23:03 81 16 145/64 98 12/13/16 21:10 99.2 F 100 12/13/16 21:07 91 12/13/16 20:40 92 16 136/60 90 12/13/16 20:19 89 12/13/16 19:21 86 16 139/58 94 12/13/16 17:58 94 16 148/78 91 12/13/16 16:43 89 16 153/66 93 12/13/16 15:25 87 16 151/66 100 12/13/16 14:42 99.0 F 84 16 149/69 94 Intake and Output 12/13/16 12/13/16 12/14/16 15:59 23:59 07:59 Intake Total 250 / 250 Balance 250 / 250 Intake: IV Fluids 250 / 250 0.9 % Sodium Chloride 250 250 / 250 ML @ 937.5 mls/hr IVC . Q16M ONE Rx#:[id number] Other: Stool Size Moderate Stool Characteristics Foamy Stool Color Stalin Colored Weight 72.575 kg 70.307 kg Patient Weight 12/14/16 23:59 Weight 70.307 kg General appearance: Present: mild distress, A&O X 3, obese, answers questions appropriately - Head Head exam: Present: atraumatic, normocephalic - Eye Eye exam: Present: EOMI, PERRL, conjuntiva pink, sclera anicteric Pupils: Present: normal accommodation, PERRL - ENT ENT exam: Present: mucous membranes moist, normal oropharynx - Neck Neck exam general surgery: Present: full ROM, supple, trachea midline. Absent: lymphadenopathy - Respiratory Respiratory exam: Present: decreased breath sounds, CTAB. Absent: accessory muscle use, rales, rhonchi, wheezes - Cardiovascular Cardiovascular exam: Present: distant heart sounds, RRR, +S1, +S2. Absent: diastolic murmur, gallop, rubs, systolic murmur - GI/Abdominal GI/Abdominal exam: Present: normal bowel sounds, soft, no peritoneal signs. Absent: distended, tenderness - Extremities Exam Extremities exam: Present: full ROM, warm, radial pulses palpable and symetrical. Absent: calf tenderness, cyanotic, pedal edema - Neurological Exam Neurological exam: Present: alert, altered, CN II-XII intact, oriented X3, no focal deficits. Absent: pronater drift, facial droop, speech deficit - Psychiatric Psychiatric exam: Present: normal affect, normal mood - Skin Skin exam: Present: dry, intact, warm - Expanded Skin Exam Type of lesion: Present: rash Distribution of rash: Present: RLE, LLE Description of rash: Present: crusting, erythematous, swelling, tenderness Internal Med - H&P Results - Labs CBC & Chem 7: 12/14/16 02:03 12/14/16 02:03 Labs: Short CBC 12/14/16 Range/Units 02:03 WBC 7.1 (4.3-11.1) K/mcL Hgb 9.1 L (11.5-15.4) g/dL Hct 28.6 L (35.3-44.9) % Plt Count 280 (140-400) K/mcL Neutrophils # 4.8 (1.6-8.9) K/mcL BMP 12/14/16 02:03 Sodium 140 Potassium 3.7 Chloride 102 Carbon Dioxide 28 BUN 8 Creatinine 2.67 H Glucose 83 Calcium 8.1 L Liver Function 12/14/16 Range/Units 02:03 Total Bilirubin 0.4 (0.2-1.2) mg/dL AST 11 (5-34) Units/L ALT < 6 (0-55) Units/L Alkaline Phosphatase 86 (38-126) Units/L Albumin 1.8 L (3.5-5.0) g/dL Abnormal lab results RBC 2.92 M/mcL (3.82-4.97) L 12/14/16 02:03 Hgb 9.1 g/dL (11.5-15.4) L 12/14/16 02:03 Hct 28.6 % (35.3-44.9) L 12/14/16 02:03 RDW 16.5 % (11.5-14.5) H 12/14/16 02:03 MPV 9.0 fL (9.4-12.4) L 12/14/16 02:03 ABG pO2 49 mmHg (85-104) L* 12/13/16 20:55 ABG HCO3 30.6 mEQ/L (21-27) H 12/13/16 20:55 ABG Total CO2 32.0 mEq/L (20-26) H 12/13/16 20:55 ABG O2 Saturation 86 % (95-98) L 12/13/16 20:55 ABG Base Excess 5.8 mEq/L (-2.0 to 3.0) H 12/13/16 20:55 Creatinine 2.67 mg/dL (0.57-1.11) H 12/14/16 02:03 Est GFR ( Amer) 21 (> 60) L 12/14/16 02:03 Est GFR (Non-Af Amer) 18 (> 60) L 12/14/16 02:03 BUN/Creatinine Ratio 3 (6-26) L 12/14/16 02:03 Calcium 8.1 mg/dL (8.6-10.8) L 12/14/16 02:03 Magnesium 1.3 mg/dL (1.6-2.6) L 12/14/16 02:03 Serum Total Protein 5.8 g/dL (6.0-8.3) L 12/14/16 02:03 Albumin 1.8 g/dL (3.5-5.0) L 12/14/16 02:03 Globulin 4.0 g/dL (2.4-3.5) H 12/14/16 02:03 Albumin/Globulin Ratio 0.5 (1.1-2.2) L 12/14/16 02:03 HDL Cholesterol 34 mg/dL (40-59) L 12/14/16 02:03 Urine Clarity Cloudy (Clear) A 12/13/16 19:28 Urine Protein >=300 mg/dL (Neg-Trace) H 12/13/16 19:28 Urine Glucose (UA) 100 mg/dL (Normal) H 12/13/16 19:28 Urine Blood Moderate (Negative) H 12/13/16 19:28 Ur Leukocyte Esterase Large (Negative) H 12/13/16 19:28 Urine Microscopic RBC 5-15 per hpf (0-3) H 12/13/16 19:28 Urine Microscopic WBC TNTC per hpf (0-3) H 12/13/16 19:28 Ur Squamous Epith Cells Many per lpf (None-Few) H 12/13/16 19:28 Urine Yeast Few per hpf (None Seen) H 12/13/16 19:28 Ur Culture Indicated? YES (NO) A 12/13/16 19:28 Laboratory Results WBC 7.1 K/mcL (4.3-11.1) 12/14/16 02:03 RBC 2.92 M/mcL (3.82-4.97) L 12/14/16 02:03 Hgb 9.1 g/dL (11.5-15.4) L 12/14/16 02:03 Hct 28.6 % (35.3-44.9) L 12/14/16 02:03 MCV 97.9 fL (83.0-100.0) 12/14/16 02:03 MCH 31.2 pg (28.0-33.3) 12/14/16 02:03 MCHC 31.8 g/dL (31.6-35.5) 12/14/16 02:03 RDW 16.5 % (11.5-14.5) H 12/14/16 02:03 Plt Count 280 K/mcL (140-400) 12/14/16 02:03 MPV 9.0 fL (9.4-12.4) L 12/14/16 02:03 Immature Gran % 0.4 % (0-4) 12/14/16 02:03 Seg Neutrophils % 67.9 % 12/14/16 02:03 Lymphocytes % 19.5 % 12/14/16 02:03 Monocytes % 10.7 % 12/14/16 02:03 Eosinophils % 0.8 % 12/14/16 02:03 Basophils % 0.7 % 12/14/16 02:03 Neutrophils # 4.8 K/mcL (1.6-8.9) 12/14/16 02:03 Lymphocytes # 1.4 K/mcL (0.6-4.6) 12/14/16 02:03 Monocytes # 0.8 K/mcL (0.0-1.3) 12/14/16 02:03 Eosinophils # 0.1 K/mcL (0.0-0.6) 12/14/16 02:03 Basophils # 0.1 K/mcL (0.0-0.2) 12/14/16 02:03 ABG pH 7.44 pH Units (7.32-7.45) 12/13/16 20:55 ABG pCO2 45 mmHg (35-45) 12/13/16 20:55 ABG pO2 49 mmHg (85-104) L* 12/13/16 20:55 ABG HCO3 30.6 mEQ/L (21-27) H 12/13/16 20:55 ABG Total CO2 32.0 mEq/L (20-26) H 12/13/16 20:55 ABG O2 Saturation 86 % (95-98) L 12/13/16 20:55 ABG Base Excess 5.8 mEq/L (-2.0 to 3.0) H 12/13/16 20:55 Blood Gas Modality RA 12/13/16 20:55 Inspired O2 21 % 12/13/16 20:55 Sodium 140 mEq/L (136-145) 12/14/16 02:03 Potassium 3.7 mEq/L (3.5-4.5) 12/14/16 02:03 Chloride 102 mEq/L (98-109) 12/14/16 02:03 Carbon Dioxide 28 mEq/L (19-29) 12/14/16 02:03 BUN 8 mg/dL (7-20) 12/14/16 02:03 Creatinine 2.67 mg/dL (0.57-1.11) H 12/14/16 02:03 Est GFR ( Amer) 21 (> 60) L 12/14/16 02:03 Est GFR (Non-Af Amer) 18 (> 60) L 12/14/16 02:03 BUN/Creatinine Ratio 3 (6-26) L 12/14/16 02:03 Glucose 83 mg/dL (70-99) 12/14/16 02:03 Est Mean Plasma Glucose 80 mg/dl 12/14/16 02:03 Hemoglobin A1c 4.4 % (-5.6) 12/14/16 02:03 Calculated Osmolality 287 (280-300) 12/14/16 02:03 Lactic Acid 0.9 mmol/L (0.5-2.2) 12/14/16 02:03 Calcium 8.1 mg/dL (8.6-10.8) L 12/14/16 02:03 Phosphorus 3.4 mg/dL (2.3-4.7) 12/14/16 02:03 Magnesium 1.3 mg/dL (1.6-2.6) L 12/14/16 02:03 Total Bilirubin 0.4 mg/dL (0.2-1.2) 12/14/16 02:03 Direct Bilirubin 0.2 mg/dL (0.0-0.5) 12/13/16 15:57 Indirect Bilirubin 0.2 mg/dL (0.0-1.2) 12/13/16 15:57 AST 11 Units/L (5-34) 12/14/16 02:03 ALT < 6 Units/L (0-55) 12/14/16 02:03 Alkaline Phosphatase 86 Units/L (38-126) 12/14/16 02:03 Serum Total Protein 5.8 g/dL (6.0-8.3) L 12/14/16 02:03 Albumin 1.8 g/dL (3.5-5.0) L 12/14/16 02:03 Globulin 4.0 g/dL (2.4-3.5) H 12/14/16 02:03 Albumin/Globulin Ratio 0.5 (1.1-2.2) L 12/14/16 02:03 Triglycerides 73 mg/dL (< 150) 12/14/16 02:03 Cholesterol 102 mg/dL (< 200) 12/14/16 02:03 LDL Cholesterol, Calc 53 mg/dL (0-99) 12/14/16 02:03 VLDL Cholesterol, Calc 15 mg/dL (< 31) 12/14/16 02:03 HDL Cholesterol 34 mg/dL (40-59) L 12/14/16 02:03 Cholesterol/HDL Ratio 3.0 (0-4.9) 12/14/16 02:03 Urine Color Yellow (Yellow) 12/13/16 19:28 Urine Clarity Cloudy (Clear) A 12/13/16 19:28 Urine pH 8.0 pH Units (5.0-8.0) 12/13/16 19:28 Ur Specific [place] 1.011 (1.010-1.025) 12/13/16 19:28 Urine Protein >=300 mg/dL (Neg-Trace) H 12/13/16 19:28 Urine Glucose (UA) 100 mg/dL (Normal) H 12/13/16 19:28 Urine Ketones Negative mg/dL (Negative) 12/13/16 19:28 Urine Blood Moderate (Negative) H 12/13/16 19:28 Urine Nitrite Negative (Negative) 12/13/16 19:28 Urine Bilirubin Negative (Negative) 12/13/16 19:28 Urine Urobilinogen Normal mg/dL (Normal) 12/13/16 19:28 Ur Leukocyte Esterase Large (Negative) H 12/13/16 19:28 Urine Microscopic RBC 5-15 per hpf (0-3) H 12/13/16 19:28 Urine Microscopic WBC TNTC per hpf (0-3) H 12/13/16 19:28 Ur Squamous Epith Cells Many per lpf (None-Few) H 12/13/16 19:28 Urine Bacteria Few per hpf (None-Few) 12/13/16 19:28 Hyaline Casts None Seen per lpf (None-Few) 12/13/16 19:28 Urine Yeast Few per hpf (None Seen) H 12/13/16 19:28 Ur Culture Indicated? YES (NO) A 12/13/16 19:28 Impressions Abdomen/Pelvis CT 12/13/16 17:16 IMPRESSION: 1. Left nephrolithiasis including staghorn calculi within the left renal pelvis, unchanged from 2014. 2. Cholelithiasis. 3. Small pleural effusions with adjacent airspace disease that could represent atelectasis and/or pneumonia. 4. Calcifications within a hypodense lesion along segment 2 of the liver have increased from 2014. This is of uncertain clinical significance. If clinically warranted, nonemergent [facility] liver MRI can be performed for further evaluation. D/ / Miki Doran MD / Miki Doran MD Interpreting Provider: Miki Doran MD Chest X-Ray 12/13/16 22:49 IMPRESSION: Interstitial edema with possible superimposed left base infiltrate and small left pleural effusion D/ / Richard Fernandez MD / Richard Fernandez MD Interpreting Provider: Richard Fernandez MD
[2016-12-14] MEDS: *HR* OxyCODONE Immed Rel 5 MG TABLET PO PRN ×2 (03:55→19:49)
[2016-12-14] MEDS: Ipratropium/Albuterol Neb 3 ML IH SCH ×4 (04:09→16:31)
[2016-12-14] MEDS ORDERED: Levofloxacin 750 MG/150 ML 750 MG/150 ML BAG IVPB SCH (05:00)
[2016-12-14] MEDS ORDERED: Vancomycin 1,000 MG in D5% in Water 250 ML IVPB SCH (05:00)
[2016-12-14] MEDS ORDERED: Vancomycin 1,500 MG in D5% in Water 250 ML IVPB ONE (05:15)
[2016-12-14] MEDS ORDERED: Magnesium Sulfate 2 GM in D5% in Water 100 ML IVPB ONE (07:55)
[2016-12-14] MEDS ORDERED: Aztreonam 1,000 MG in D5% in Water (Mini-Bag+) 100 ML IVPB SCH (08:00)
[2016-12-14] MEDS: Insulin LISPRO 300 UNITS/3 ML VIAL SQ SCH ×4 (08:33→21:00)
[2016-12-14] MEDS: Gabapentin 100 MG CAPSULE PO SCH ×3 (08:35→19:48)
[2016-12-14] MEDS: Aspirin 81 MG TAB.CHEW PO SCH (08:36)
[2016-12-14] MEDS ORDERED: Pantoprazole 40 MG VIAL IVP SCH (09:00)
[2016-12-14] MEDS ORDERED: Fluconazole 40 MG/ML UDC PO SCH (09:00)
[2016-12-14 11:12] LABS: Adenovirus Not Detected (Not Detect); Bordetella Pertussis Not Detected (Not Detect); Chlamydophila pneumoniae Not Detected (Not Detect); Coronavirus 229E Not Detected (Not Detect); Coronavirus HKU1 Not Detected (Not Detect); Coronavirus NL63 Not Detected (Not Detect); Coronavirus OC43 Not Detected (Not Detect); Human Metapneumovirus Not Detected (Not Detect); Human Rhinovirus/Enterovirus Not Detected (Not Detect); Influenza A Subtype 2009 H1 Not Detected (Not Detect); Influenza A Untypeable Not Detected (Not Detect); Influenza B Not Detected (Not Detect); Mycoplasma pneumoniae Not Detected (Not Detect); Parainfluenza Virus 1 Not Detected (Not Detect); Parainfluenza Virus 2 Not Detected (Not Detect); Parainfluenza Virus 3 Not Detected (Not Detect); Parainfluenza Virus 4 Not Detected (Not Detect); Respiratory Syncytial Virus Not Detected (Not Detect)
--- NOTE | 2016-12-14 11:27 | Nephrology Consult Note ---
Date of Encounter: 12/14/16 Time of Encounter: 11:10 Assessment and Plan (1) ESRD (end stage renal disease) on dialysis Current Visit: Yes Status: Chronic ESRD previously on PD, transitioned to HD due to calciphylaxis. HD regularly scheduled for . Plan for regular dialysis tomorrow. May need to arrange dialysis in conjunction with any nephrotoxic medications. Spoke to pharmacist, if patient is to continue Sodium Thiosulfate with dialysis they will need an order for this. Will touch base with attending, Dr. Navarrete or Dr. Eng. (2) Hypomagnesemia Current Visit: Yes Status: Acute Will begin oral replacement with 400mg BID. Patient already received 2gm IV Mg this AM by primary service. Continue to monitor Mg level. (3) Pneumonia Current Visit: Yes Status: Acute Management per primary medicine service. Patient started on Vancomycin and Levaquin. Qualifiers: Pneumonia type: due to unspecified organism Laterality: left Lung location: lower lobe of lung Qualified Code(s): J18.1 - Lobar pneumonia, unspecified organism (4) Urinary tract infection Current Visit: Yes Status: Acute Management per primary medicine service. Qualifiers: Urinary tract infection type: acute cystitis Hematuria presence: with hematuria Qualified Code(s): N30.01 - Acute cystitis with hematuria (5) Acute gastroenteritis Current Visit: Yes Status: Acute Management per primary medicine service. 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 Seen by Dr. Du with wound care. Treatment with Sodium Thiosulfate. (7) T2DM (type 2 diabetes mellitus) Current Visit: No Status: Chronic Management per primary service. SSI protocol initiated. 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 Eng is a 71 year old female that presented to the ED for N/V/D x 4 days with associated fevers. In addition to gastroenteritis, patient found to have LLL pneumonia and UTI on workup. She was started on empiric IV antibiotic therapy with vancomycin, aztreonam, and levaquin. Nephrology consulted as patient has a history of ESRD on dialysis ( patient of Dr. Navarrete); also note patient has a history of calciphylaxis affecting BLE for which she sees Dr. Du. She was also found to have a low magnesium level on admission. Ms. Eng notes resolution of N/V/D, but states she does not feel good and is very tired on exam. Past Med Surg Social Fam HX - Past Medical History Attestation: Yes The following information was validated with the patient. Source: patient, old records reviewed Medical history: arthritis, cancer, diabetes, dialysis, hyperlipidemia, hypertension, kidney stones, malignancy, myocardial infarction, osteoporosis, peripheral artery disease, renal disease, thyroid disease, other Psychiatric history: anxiety, depression - Past Surgical History Surgical History: carotid endarterectomy, hysterectomy, orthopedic, other, thyroidectomy, other - Social History Smoking Status: Never smoker Smokeless Tobacco Status: No Alcohol use: none Drug use: none - Family History Mother Adopted: No Family Member Ethnicity: Non- Living Status: Hx Family Cardiac Disorders: No Hx Family Respiratory Disorders: Yes Hx Family Cancer: Yes Hx Family GI Disorders: No Hx Family Endocrine Disorder: No Hx Family Neuromuscular Disorders: No Hx Family Neurologic Disorders: No Hx Family HEENT Disorders: No Hx Family Autoimmune Disorders: No Father Adopted: No Family Member Ethnicity: Non- Living Status: Hx Family Cardiac Disorders: Yes Hx Family Respiratory Disorders: Yes Hx Family Cancer: No Hx Family GI Disorders: No Hx Family Endocrine Disorder: Yes Hx Family Neuromuscular Disorders: No Hx Family Neurologic Disorders: No Hx Family HEENT Disorders: No Hx Family Autoimmune Disorders: No Medications and Allergies Insulin LISPRO [HumaLOG] 0 units SQ TIDWM 10/10/15 [History] Multivitamin [Multi-Day Vitamins] 1 tab PO DAILY 10/10/15 [History] Aspirin 81 mg PO DAILY #30 tab.chew 08/09/16 [Rx] Atorvastatin [Lipitor] 40 mg PO HS #30 tablet 08/09/16 [Rx] Acetaminophen [Tylenol] 1,000 mg PO HS PRN 10/09/16 [History] Cinacalcet [Sensipar] 30 mg PO DAILY 10/09/16 [History] DiphenhydraMINE [Benadryl] 25 mg PO HS 10/09/16 [History] Gabapentin [Neurontin] 100 mg PO TID 10/09/16 [History] Lidocaine/Prilocaine [Emla] 1 appl TP PRN PRN 10/09/16 [History] Sodium Thiosulfate 12.5 gm IV MOWEFR 10/09/16 [History] Clopidogrel [Plavix] 75 mg PO DAILY tablet 10/16/16 [Rx] Diphenoxylate/Atropine [Lomotil 2.5 mg/0.025 mg] 1 each PO QID #20 tablet [Rx] Ondansetron ODT [Zofran ODT] 4 mg PO Q8HR #15 tab.rapdis 12/13/16 [Rx] Citalopram [CeleXA] 20 mg PO DAILY 12/14/16 [History] Ferrous Sulfate [Iron] 325 mg PO DAILY 12/14/16 [History] Allergies Penicillins Allergy (Verified 03/22/16 14:43) Hives Review of Systems Constitutional: fatigue, fever(s) Nose, mouth and throat: no dysphagia Cardiovascular: leg ulcers, no chest pain, no dyspnea, no edema Respiratory: no cough, no dyspnea Gastrointestinal: diarrhea, nausea, vomiting Genitourinary Female: no dysuria, no flank pain Musculoskeletal: no numbness Integumentary: wounds (BLE), no rash Neurological: no confusion, no dizziness, no focal weakness Hematologic/Lymphatic: no easy bleeding, no easy bruising Exam - Vital Signs Vital signs: Initial Vital Signs Temp Pulse Resp BP Pulse Ox 99.0 F 84 16 149/69 94 12/13/16 14:42 12/13/16 14:42 12/13/16 14:42 12/13/16 14:42 12/13/16 14:42 Vital Signs - Last 8 Hours Temp Pulse Resp BP Pulse Ox 12/14/16 08:00 99.1 F 79 16 133/68 100 12/14/16 05:14 98.5 F 81 18 129/61 92 12/14/16 04:16 16 99 Intake and Output 12/13/16 12/14/16 12/14/16 23:59 07:59 15:59 Intake Total 100 / 100 Balance 100 / 100 Intake: Oral 100 / 100 Other: Meal Breakfast Percent of Meal Consumed 0% Weight 70.307 kg Blood Glucose* 99 Patient Weight 12/14/16 23:59 Weight 70.307 kg - General Appearance General appearance: well-developed, well-nourished, appears started age EENT: ATNC, mucous membranes moist, hearing intact, vision intact Respiratory: clear Cardiology: regular rate, regular rhythm Additional Comments: Systolic murmur, best appreciated at the R sternal heart border. Gastrointestinal: no tenderness, no guarding Integumentary: no rash, warm and dry Neurologic: no focal deficit, alert and oriented x3 Additional Comments: Healing necrotic wounds on BLE Psychiatric: mood/affect appropriate, cooperative Results - Lab Results 12/14/16 02:03 12/14/16 02:03 Most recent lab results ABG pH 7.44 pH Units (7.32-7.45) 12/13/16 20:55 ABG pCO2 45 mmHg (35-45) 12/13/16 20:55 ABG pO2 49 mmHg (85-104) L* 12/13/16 20:55 ABG HCO3 30.6 mEQ/L (21-27) H 12/13/16 20:55 ABG O2 Saturation 86 % (95-98) L 12/13/16 20:55 Calcium 8.1 mg/dL (8.6-10.8) L 12/14/16 02:03 Phosphorus 3.4 mg/dL (2.3-4.7) 12/14/16 02:03 Magnesium 1.3 mg/dL (1.6-2.6) L 12/14/16 02:03 Consult Discharge Plan - Plan Referrals: Rudi Avila MD [Primary Care Provider] - (Web requested 12-14-16)
[2016-12-14] MEDS ORDERED: *HR* OxyCODONE/APAP 10/325 TABLET PO PRN (12:26)
--- NOTE | 2016-12-14 14:46 | Event Note ---
Date of Encounter: 12/14/16 Time of Encounter: 14:38 Patient is a 71-year-old female with extensive medical history who was admitted for management of healthcare acquired pneumonia and urinary tract infection. She has a noted history of end-stage renal disease on hemodialysis and bilateral lower extremity calciphylaxis. Patient seen and examined at bedside. Reports of feeling better since her arrival to the hospital, states she feels weak but denies any nausea, vomiting, diarrhea. Denies any fever or chills at this time. She is started on empiric IV antibiotic therapy with vancomycin, aztreonam, Levaquin. Will follow up blood and urine cultures and de-escalate therapy accordingly. Nephrology is consulted for continuation of her hemodialysis sessions Upon arrival she had complaints of nausea, vomiting, and diarrhea, however since hospitalization she has had complete resolution of those symptoms. She is tolerating by mouth intake well at this time. She was noted to have hypomagnesemia, magnesium was supplemented. She also has history of type 2 diabetes mellitus. We will continue to monitor fingerstick and blood glucose and use sliding scale insulin algorithm as needed.
[2016-12-14] MEDS: Aztreonam 500 MG in D5% in Water (Mini-Bag+) 100 ML IVPB SCH ×2 (14:59→23:34)
[2016-12-14] MEDS: Magnesium Oxide 400 MG TABLET PO SCH ×2 (17:00→19:48)
--- NOTE | 2016-12-14 19:37 | Electrocardiograph Report ---
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
[2016-12-15] MEDS: Ipratropium/Albuterol Neb 3 ML IH SCH ×5 (00:02→22:11)
[2016-12-15 04:47] LABS: Basophils % 0.3 %; Eosinophils # 0.1 K/mcL (0.0-0.6); Hematocrit 25.2 % (35.3-44.9); Hemoglobin 8.1 g/dL (11.5-15.4); Immature Granulocytes % 0.5 % (0-4); Lymphocytes # 0.9 K/mcL (0.6-4.6); Lymphocytes % 9.8 %; Mean Corpuscular HGB Conc 32.1 g/dL (31.6-35.5); Mean Corpuscular Hemoglobin 31.8 pg (28.0-33.3); Mean Corpuscular Volume 98.8 fL (83.0-100.0); Mean Platelet Volume 9.7 fL (9.4-12.4); Monocytes # 0.8 K/mcL (0.0-1.3); Monocytes % 8.4 %; Neutrophils # 7.6 K/mcL (1.6-8.9); Platelet Count 275 K/mcL (140-400); Red Blood Count 2.55 M/mcL (3.82-4.97); Red Cell Distribution Width 16.4 % (11.5-14.5)
[2016-12-15 05:00] LABS: Calcium 7.9 mg/dL (8.6-10.8); Magnesium 1.9 mg/dL (1.6-2.6); Phosphorous 4.3 mg/dL (2.3-4.7)
[2016-12-15] MEDS: Aspirin 81 MG TAB.CHEW PO SCH (06:10)
[2016-12-15] MEDS: Gabapentin 100 MG CAPSULE PO SCH ×3 (06:10→21:47)
[2016-12-15] MEDS: Magnesium Oxide 400 MG TABLET PO SCH ×2 (06:10→21:46)
[2016-12-15] MEDS: Insulin LISPRO 300 UNITS/3 ML VIAL SQ SCH ×4 (07:45→21:47)
--- NOTE | 2016-12-15 10:37 | Internal Med Progress Note ---
Date of Encounter: 12/15/16 Time of Encounter: 09:25 - Assessment and plan (1) Urinary tract infection Current Visit: Yes Status: Acute Assessment and plan: Urine culture positive for Klebsiella and E.coli Will continue current IV abx therapy Qualifiers: Urinary tract infection type: acute cystitis Hematuria presence: with hematuria Qualified Code(s): N30.01 - Acute cystitis with hematuria (2) HCAP (healthcare-associated pneumonia) Current Visit: Yes Status: Acute Assessment and plan: clinically improving will continue IV abx De-escalate therapy as per blood culture results follow up blood cultures (3) Anemia Current Visit: No Status: Acute Assessment and plan: likely of chronic disease H&H low but acceptable will continue to closely monitor and transfuse as needed Qualifiers: Anemia type: unspecified type Qualified Code(s): D64.9 - Anemia, unspecified (4) T2DM (type 2 diabetes mellitus) Current Visit: No Status: Chronic Assessment and plan: BG within acceptable range will continue SS insulin algorithm continue to monitor FS and BG Qualifiers: Diabetes mellitus complication status: with kidney complications Diabetes mellitus complication detail: with chronic kidney disease 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 [facility] insulin use status Chronic kidney disease stage: on chronic dialysis Qualified Code(s): E11.22 - Type 2 diabetes mellitus with diabetic chronic kidney disease; N18.6 - End stage renal disease (5) ESRD (end stage renal disease) on dialysis Current Visit: Yes Status: Chronic Assessment and plan: Nephrology input appreciated HD sessions as per nephrology patient to get HD today (12/15/16) (6) 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 Resting in bed and reports of feeling better compared to previous day. Scheduled for HD today. - Constitutional Vitals: Temp Pulse Resp BP Pulse Ox 99.2 F 97 15 108/50 98 12/15/16 08:05 12/15/16 08:05 12/15/16 08:05 12/15/16 08:05 12/15/16 08:05 General appearance: Present: A&O X 3, no acute distress, obese, answers questions appropriately - Head Head exam: Present: atraumatic, normocephalic - Eye Eye exam: Present: normal appearance, conjuntiva pink, sclera anicteric - Respiratory Respiratory exam: Present: CTAB. Absent: accessory muscle use, rales, rhonchi, wheezes - Cardiovascular Cardiovascular exam: Present: RRR, +S1, +S2. Absent: diastolic murmur, gallop, rubs, systolic murmur - GI/Abdominal GI/Abdominal exam: Present: normal bowel sounds, soft, no peritoneal signs. Absent: distended, tenderness - Extremities Exam Extremities exam: Present: pedal edema, warm, radial pulses palpable and symetrical (bilateral lower extremity calciphylaxis (dressing intact)) - Neurological Exam Neurological exam: Present: alert, oriented X3 Internal Medicine: Result - Labs CBC & Chem 7: 12/15/16 04:09 12/15/16 04:09 Labs: Short CBC 12/15/16 Range/Units 04:09 WBC 9.5 (4.3-11.1) K/mcL Hgb 8.1 L (11.5-15.4) g/dL Hct 25.2 L (35.3-44.9) % Plt Count 275 (140-400) K/mcL Neutrophils # 7.6 (1.6-8.9) K/mcL BMP 12/15/16 04:09 Sodium 138 Potassium 4.0 Chloride 100 Carbon Dioxide 27 BUN 15 Creatinine 3.94 H Glucose 71 Calcium 7.9 L - ABG Interpretation ABG results: ABG ABG pH 7.44 pH Units (7.32-7.45) 12/13/16 20:55 ABG pCO2 45 mmHg (35-45) 12/13/16 20:55 ABG pO2 49 mmHg (85-104) L* 12/13/16 20:55 ABG O2 Saturation 86 % (95-98) L 12/13/16 20:55 Consult Discharge Plan - Plan Referrals: Rudi Avila MD [Primary Care Provider] - (Web requested 12-14-16)
[2016-12-15 10:48] LABS: Hepatitis B Surface Antibody 0.15 mIU/mL; Hepatitis B Surface Antigen Nonreactive (Nonreactive)
--- NOTE | 2016-12-15 12:15 | Nephrology Progress Note ---
Date of Encounter: 12/15/16 Time of Encounter: 09:30 - Assessment and Plan (1) ESRD (end stage renal disease) on dialysis Current Visit: Yes Status: Chronic ESRD previously on PD, transitioned to HD. Plan for dialysis today. Regularly scheduled for . History of calciphylaxis. Sodium thiosulfate used with dialysis. May need to arrange dialysis in conjunction with any nephrotoxic medications. (2) Hypomagnesemia Current Visit: Yes Status: Acute Improved, Mg 1.3 > 1.9 Patient received 2gm IV Mg yesterday by primary service. And we began oral replacement with 400mg BID. Can reduce oral replacement based on patient's response/Mg level. Continue to monitor Mg level. (3) Pneumonia Current Visit: Yes Status: Acute Management per primary medicine service. Patient started on multiple IV antibiotic therapy. Qualifiers: Pneumonia type: due to unspecified organism Laterality: left Lung location: lower lobe of lung Qualified Code(s): J18.1 - Lobar pneumonia, unspecified organism (4) Urinary tract infection Current Visit: Yes Status: Acute Management per primary medicine service. Urine culture positive for Klebsiella and E.coli Qualifiers: Urinary tract infection type: acute cystitis Hematuria presence: with hematuria Qualified Code(s): N30.01 - Acute cystitis with hematuria (5) Acute gastroenteritis Current Visit: Yes Status: Resolved Management per primary medicine service. 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 Seen by Dr. Du with wound care. Treatment with Sodium Thiosulfate. (7) T2DM (type 2 diabetes mellitus) Current Visit: No Status: Chronic Management per primary service. SSI protocol initiated. 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 No signs of active bleeding. Hgb 10.0 on admission, 8.1 today. May contribute to increased fatigue. Continue to monitor daily for worsening anemia or signs of bleeding. Qualifiers: Anemia type: unspecified type Qualified Code(s): D64.9 - Anemia, unspecified Subjective Principal diagnosis: HCAP, UTI Interval history: No events overnight. Patient states she believes her breathing is better, but she still feels weak and has no energy. Planning for regular dialysis with sodium thiosulfate today. Patient states she is very happy with the progress with her healing lower extremities. Objective - Vital Signs Vital signs: Vital Signs Temp Pulse Resp BP Pulse Ox 12/15/16 11:53 97 15 108/50 98 12/15/16 08:05 99.2 F 97 15 108/50 98 12/15/16 04:48 97.9 F 88 17 135/71 98 12/15/16 04:18 14 97 12/15/16 00:02 14 92 12/14/16 23:52 99.9 F H 94 16 129/71 90 12/14/16 20:38 99.0 F 86 16 148/79 93 12/14/16 16:33 98.6 F 81 18 143/74 96 Intake and Output 12/14/16 12/15/16 12/15/16 23:59 07:59 15:59 Intake Total 340 / 340 100 / 100 Output Total 100 / 100 Balance 340 / 340 0 / 0 Intake: IV Fluids 100 / 100 100 / 100 Azactam 500 MG In 100 / 100 100 / 100 Dextrose 5% (Minibag+) 100 ML 100 ML @ 200 mls/ hr IVPB Q8HR [facility] Rx#: [id number] Oral 240 / 240 0 / 0 Output: Urine 100 / 100 Other: Meal Dinner Percent of Meal Consumed 50% # Voids 1 Weight 70.1 kg Blood Glucose* 120 77 Patient Weight 12/15/16 23:59 Weight 70.1 kg - General Appearance General appearance: Present: well-developed, well-nourished, appears started age EENT: Present: ATNC, mucous membranes moist, hearing intact, vision intact Neck: Present: supple Respiratory: Present: clear Cardiology: Present: regular rate, regular rhythm Gastrointestinal: Present: normoactive bowel sounds, tenderness (mild diffuse abd tenderness, R>L), no guarding Integumentary: Present: no rash, warm and dry Neurologic: Present: no focal deficit, alert and oriented x3 Additional Comments: Healing necrotic wounds on BLE Psychiatric: Present: mood/affect appropriate, cooperative - Lab 12/15/16 04:09 12/15/16 04:09 Most recent lab results ABG pH 7.44 pH Units (7.32-7.45) 12/13/16 20:55 ABG pCO2 45 mmHg (35-45) 12/13/16 20:55 ABG pO2 49 mmHg (85-104) L* 12/13/16 20:55 ABG HCO3 30.6 mEQ/L (21-27) H 12/13/16 20:55 ABG O2 Saturation 86 % (95-98) L 12/13/16 20:55 Calcium 7.9 mg/dL (8.6-10.8) L 12/15/16 04:09 Phosphorus 4.3 mg/dL (2.3-4.7) 12/15/16 04:09 Magnesium 1.9 mg/dL (1.6-2.6) 12/15/16 04:09 Consult Discharge Plan - Plan Referrals: Rudi Avila MD [Primary Care Provider] - (Web requested 12-14-16)
[2016-12-15] MEDS ORDERED: 0.9 % Sodium Chloride 250 ML IVC PRN (12:26)
[2016-12-15] MEDS ORDERED: 0.9 % Sodium Chloride 1,000 ML PRIME SCH (12:30)
[2016-12-16] MEDS: Ipratropium/Albuterol Neb 3 ML IH SCH ×4 (04:44→22:24)
[2016-12-16 05:27] LABS: Basophils % 0.4 %; Eosinophils # 0.2 K/mcL (0.0-0.6); Eosinophils % 1.9 %; Hematocrit 25.9 % (35.3-44.9); Immature Granulocytes % 0.6 % (0-4); Lymphocytes # 1.2 K/mcL (0.6-4.6); Mean Corpuscular HGB Conc 30.9 g/dL (31.6-35.5); Mean Corpuscular Hemoglobin 30.7 pg (28.0-33.3); Mean Corpuscular Volume 99.2 fL (83.0-100.0); Mean Platelet Volume 9.8 fL (9.4-12.4); Monocytes # 0.8 K/mcL (0.0-1.3); Monocytes % 8.4 %; Neutrophils # 7.5 K/mcL (1.6-8.9); Platelet Count 266 K/mcL (140-400); Red Blood Count 2.61 M/mcL (3.82-4.97); Red Cell Distribution Width 16.3 % (11.5-14.5); Segmented Neutrophils % 76.7 %
[2016-12-16] MEDS: Levofloxacin 500 MG/100 ML 500 MG/100 ML BAG IVPB SCH (05:32)
[2016-12-16 05:47] LABS: Calcium 7.9 mg/dL (8.6-10.8); Magnesium 1.8 mg/dL (1.6-2.6)
[2016-12-16] MEDS: Insulin LISPRO 300 UNITS/3 ML VIAL SQ SCH ×4 (08:07→20:36)
--- NOTE | 2016-12-16 09:16 | Nephrology Progress Note ---
Date of Encounter: 12/16/16 Time of Encounter: 09:14 - Assessment and Plan (1) ESRD (end stage renal disease) on dialysis Current Visit: Yes Status: Chronic Patient infiltrated yesterday during dialysis. Will plan for HD again today. Patient counseled on diet--should not be eating donuts on renal diet (2) Anemia in chronic kidney disease Current Visit: No Status: Chronic Hgb 8.0 Patient has a history of anemia Goal hgb 10-11 (3) Calciphylaxis Current Visit: No Status: Chronic Receiving treatment with Sodium Thiosulfate Subjective Principal diagnosis: HCAP, UTI Interval history: Patient seen and examined. Eating donuts. Objective - Vital Signs Vital signs: Vital Signs Temp Pulse Resp BP Pulse Ox 12/16/16 07:56 97.3 F L 78 16 136/71 100 12/16/16 04:44 14 100 12/16/16 04:08 97.7 F 72 16 111/68 100 12/15/16 23:34 98.2 F 78 16 101/56 99 12/15/16 22:11 16 100 12/15/16 19:24 99.2 F 86 16 147/72 99 12/15/16 16:48 98.8 F 91 15 144/79 98 12/15/16 16:01 16 100 12/15/16 12:17 98.6 F 94 15 145/60 99 12/15/16 11:53 97 15 108/50 98 12/15/16 11:00 99.2 F 16 133/66 12/15/16 10:55 99.2 F 16 133/66 Intake and Output 12/15/16 12/16/16 12/16/16 23:59 07:59 15:59 Intake Total 700 / 700 Output Total 175 / 175 Balance 525 / 525 Intake: Oral 700 / 700 Output: Urine 175 / 175 Other: Blood Glucose* 122 83 - General Appearance General appearance: Present: well-developed, well-nourished EENT: Present: ATNC, mucous membranes moist, hearing intact, vision intact Neck: Present: supple Respiratory: Present: clear Cardiology: Present: edema (mild BLL edema), normal S1, normal S2 Gastrointestinal: Present: no tenderness, no guarding Integumentary: Present: warm and dry Neurologic: Present: alert and oriented x3 Psychiatric: Present: mood/affect appropriate, cooperative - Lab 12/16/16 04:40 12/16/16 04:40 Most recent lab results ABG pH 7.44 pH Units (7.32-7.45) 12/13/16 20:55 ABG pCO2 45 mmHg (35-45) 12/13/16 20:55 ABG pO2 49 mmHg (85-104) L* 12/13/16 20:55 ABG HCO3 30.6 mEQ/L (21-27) H 12/13/16 20:55 ABG O2 Saturation 86 % (95-98) L 12/13/16 20:55 Calcium 7.9 mg/dL (8.6-10.8) L 12/16/16 04:40 Phosphorus 5.0 mg/dL (2.3-4.7) H 12/16/16 04:40 Magnesium 1.8 mg/dL (1.6-2.6) 12/16/16 04:40 Consult Discharge Plan - Plan Referrals: Rudi Avila MD [Primary Care Provider] - (Web requested 12-14-16)
[2016-12-16] MEDS: Gabapentin 100 MG CAPSULE PO SCH ×3 (09:25→20:44)
[2016-12-16] MEDS: Aspirin 81 MG TAB.CHEW PO SCH (09:25)
[2016-12-16] MEDS: Magnesium Oxide 400 MG TABLET PO SCH ×2 (09:25→20:44)
[2016-12-16] MEDS ORDERED: 0.9 % Sodium Chloride 250 ML IVC PRN (09:27)
[2016-12-16] MEDS ORDERED: 0.9 % Sodium Chloride 2,000 ML ONE (09:50)
--- NOTE | 2016-12-16 09:55 | Internal Med Progress Note ---
Date of Encounter: 12/16/16 Time of Encounter: 09:47 - Assessment and plan (1) Urinary tract infection Current Visit: Yes Status: Acute Assessment and plan: Urine culture positive for Klebsiella and E.coli Will continue current IV abx therapy Qualifiers: Urinary tract infection type: acute cystitis Hematuria presence: with hematuria Qualified Code(s): N30.01 - Acute cystitis with hematuria (2) HCAP (healthcare-associated pneumonia) Current Visit: Yes Status: Acute Assessment and plan: clinically improving will continue IV abx De-escalate therapy as per blood culture results, Discontinued Aztreonam and Vancomycin Will continue Levofloxacin and continue abx for a total of 7days (day 3/7) follow up blood cultures PT eval recommended Home health Discharge planning initiated, social sciences department chair consulted for home health placement (3) Anemia Current Visit: No Status: Chronic Assessment and plan: likely of chronic disease H&H low but acceptable will continue to closely monitor and transfuse as needed Pt to receive Epogen during HD Qualifiers: Anemia type: unspecified type Qualified Code(s): D64.9 - Anemia, unspecified (4) T2DM (type 2 diabetes mellitus) Current Visit: No Status: Chronic Assessment and plan: BG within acceptable range will continue SS insulin algorithm continue to monitor FS and BG Qualifiers: Diabetes mellitus complication status: with kidney complications Diabetes mellitus complication detail: with chronic kidney disease Diabetes mellitus usp insulin use: unspecified usp insulin use status Chronic kidney disease stage: on chronic dialysis Qualified Code(s): E11.22 - Type 2 diabetes mellitus with diabetic chronic kidney disease; N18.6 - End stage renal disease (5) ESRD (end stage renal disease) on dialysis Current Visit: Yes Status: Chronic Assessment and plan: Nephrology input appreciated HD sessions as per nephrology patient to get HD today (12/16/16) as her access was infiltrated yesterday (6) 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 Resting comfortably in bed and reports of feeling better compared to the previous day. Pateint infiltrated yesterday during diaylsis, due to which she will recieve dialysis today (12/16/16). - Constitutional Vitals: Temp Pulse Resp BP Pulse Ox 97.3 F L 78 16 136/71 100 12/16/16 07:56 12/16/16 07:56 12/16/16 07:56 12/16/16 07:56 12/16/16 07:56 General appearance: Present: A&O X 3, no acute distress, obese, answers questions appropriately - Head Head exam: Present: atraumatic, normocephalic - Eye Eye exam: Present: normal appearance, conjuntiva pink, sclera anicteric - Respiratory Respiratory exam: Present: CTAB. Absent: respiratory distress, wheezes - Cardiovascular Cardiovascular exam: Present: RRR, +S1, +S2. Absent: diastolic murmur, gallop, rubs, systolic murmur - GI/Abdominal GI/Abdominal exam: Present: normal bowel sounds, soft, no peritoneal signs. Absent: distended, tenderness - Extremities Exam Extremities exam: Present: pedal edema, warm, radial pulses palpable and symetrical Additional comments: b/l LE calciphylaxis, dressing intact - Neurological Exam Neurological exam: Present: alert, oriented X3 - Psychiatric Psychiatric exam: Present: normal affect, normal mood Internal Medicine: Result - Labs CBC & Chem 7: 12/16/16 04:40 12/16/16 04:40 Labs: Short CBC 12/16/16 Range/Units 04:40 WBC 9.8 (4.3-11.1) K/mcL Hgb 8.0 L (11.5-15.4) g/dL Hct 25.9 L (35.3-44.9) % Plt Count 266 (140-400) K/mcL Neutrophils # 7.5 (1.6-8.9) K/mcL BMP 12/16/16 04:40 Sodium 137 Potassium 4.0 Chloride 101 Carbon Dioxide 27 BUN 23 H Creatinine 5.09 H Glucose 84 Calcium 7.9 L - ABG Interpretation ABG results: ABG ABG pH 7.44 pH Units (7.32-7.45) 12/13/16 20:55 ABG pCO2 45 mmHg (35-45) 12/13/16 20:55 ABG pO2 49 mmHg (85-104) L* 12/13/16 20:55 ABG O2 Saturation 86 % (95-98) L 12/13/16 20:55 Consult Discharge Plan - Plan Referrals: Rudi Avila MD [Primary Care Provider] - (Web requested 12-14-16)
[2016-12-16] MEDS ORDERED: Sodium Thiosulfate 25 GM in EMPTY BAG 1 EACH IVPB ONE (13:45)
[2016-12-16] MEDS: SODIUM CHLORIDE 0.9% IVPB SCH (15:04)
[2016-12-16] MEDS: SODIUM ACETATE IVPB SCH (15:04)
[2016-12-17] MEDS: Ipratropium/Albuterol Neb 3 ML IH SCH ×4 (05:08→22:43)
[2016-12-17 05:14] LABS: Basophils % 0.5 %; Eosinophils # 0.3 K/mcL (0.0-0.6); Hematocrit 24.7 % (35.3-44.9); Hemoglobin 7.9 g/dL (11.5-15.4); Immature Granulocytes % 0.7 % (0-4); Lymphocytes % 11.4 %; Mean Corpuscular Hemoglobin 30.6 pg (28.0-33.3); Mean Corpuscular Volume 95.7 fL (83.0-100.0); Mean Platelet Volume 9.6 fL (9.4-12.4); Monocytes # 0.7 K/mcL (0.0-1.3); Neutrophils # 6.4 K/mcL (1.6-8.9); Platelet Count 256 K/mcL (140-400); Red Blood Count 2.58 M/mcL (3.82-4.97); Red Cell Distribution Width 16.1 % (11.5-14.5); Segmented Neutrophils % 76.4 %
[2016-12-17 05:29] LABS: Calcium 7.9 mg/dL (8.6-10.8); Magnesium 1.9 mg/dL (1.6-2.6); Phosphorous 4.1 mg/dL (2.3-4.7); Potassium 3.9 mEq/L (3.5-4.5)
[2016-12-17] MEDS ORDERED: Aminoglycoside Consult 1 EACH MC ONE (09:18)
[2016-12-17] MEDS: Insulin LISPRO 300 UNITS/3 ML VIAL SQ SCH ×4 (09:57→21:18)
[2016-12-17] MEDS: Magnesium Oxide 400 MG TABLET PO SCH ×2 (10:00→20:13)
[2016-12-17] MEDS: Aspirin 81 MG TAB.CHEW PO SCH (10:00)
[2016-12-17] MEDS: Gabapentin 100 MG CAPSULE PO SCH ×3 (10:00→20:13)
--- NOTE | 2016-12-17 10:06 | Internal Med Progress Note ---
Date of Encounter: 12/17/16 Time of Encounter: 10:04 - Assessment and plan (1) Urinary tract infection Current Visit: Yes Status: Acute Assessment and plan: Urine culture positive for Klebsiella and E.coli Will continue current IV abx therapy Qualifiers: Urinary tract infection type: acute cystitis Hematuria presence: with hematuria Qualified Code(s): N30.01 - Acute cystitis with hematuria (2) HCAP (healthcare-associated pneumonia) Current Visit: Yes Status: Acute Assessment and plan: clinically improving will continue IV abx De-escalate therapy as per blood culture results, Discontinued Aztreonam and Vancomycin Will continue Levofloxacin and continue abx for a total of 7days (day 4/7) follow up blood cultures PT eval recommended Home health Discharge planning initiated, director of social media marketing consulted for home health placement (3) Anemia Current Visit: No Status: Chronic Assessment and plan: likely of chronic disease H&H low but acceptable will continue to closely monitor and transfuse as needed Pt receives Epogen during HD Qualifiers: Anemia type: unspecified type Qualified Code(s): D64.9 - Anemia, unspecified (4) T2DM (type 2 diabetes mellitus) Current Visit: No Status: Chronic Assessment and plan: BG within acceptable range will continue SS insulin algorithm continue to monitor FS and BG Qualifiers: Diabetes mellitus complication status: with kidney complications Diabetes mellitus complication detail: with chronic kidney disease Diabetes mellitus retirement insulin use: unspecified retirement insulin use status Chronic kidney disease stage: on chronic dialysis Qualified Code(s): E11.22 - Type 2 diabetes mellitus with diabetic chronic kidney disease; N18.6 - End stage renal disease (5) ESRD (end stage renal disease) on dialysis Current Visit: Yes Status: Chronic Assessment and plan: Nephrology input appreciated HD sessions as per nephrology s/p HD on 12/16/16 (6) 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 Resting comfortably in bed and reports of feeling weak today and states this is consistent with the weakness she feels after receiving dialysis. No overnight issues reported. supply service worker consulted for discharge planning, home health recommended by physical therapy. - Constitutional Vitals: Temp Pulse Resp BP Pulse Ox 98.1 F 97 16 137/56 99 12/17/16 07:48 12/17/16 07:48 12/17/16 07:48 12/17/16 07:48 12/17/16 07:48 General appearance: Present: A&O X 3, no acute distress, obese, answers questions appropriately - Head Head exam: Present: atraumatic, normocephalic - Eye Eye exam: Present: conjuntiva pink, sclera anicteric - Respiratory Respiratory exam: Present: CTAB. Absent: accessory muscle use, rales, rhonchi, wheezes - Cardiovascular Cardiovascular exam: Present: RRR, +S1, +S2. Absent: diastolic murmur, gallop, rubs, systolic murmur - GI/Abdominal GI/Abdominal exam: Present: normal bowel sounds, soft, no peritoneal signs. Absent: distended, tenderness - Extremities Exam Extremities exam: Present: pedal edema (bilateral LE edema and calciphylaxis- dressing intact), warm, radial pulses palpable and symetrical. Absent: calf tenderness, cyanotic - Neurological Exam Neurological exam: Present: alert, oriented X3 - Psychiatric Psychiatric exam: Present: normal affect, normal mood Internal Medicine: Result - Labs CBC & Chem 7: 12/17/16 04:59 12/17/16 04:59 Labs: Short CBC 12/17/16 Range/Units 04:59 WBC 8.4 (4.3-11.1) K/mcL Hgb 7.9 L (11.5-15.4) g/dL Hct 24.7 L (35.3-44.9) % Plt Count 256 (140-400) K/mcL Neutrophils # 6.4 (1.6-8.9) K/mcL BMP 12/17/16 04:59 Sodium 141 Potassium 3.9 Chloride 100 Carbon Dioxide 26 BUN 20 Creatinine 4.38 H Glucose 73 Calcium 7.9 L - ABG Interpretation ABG results: ABG ABG pH 7.44 pH Units (7.32-7.45) 12/13/16 20:55 ABG pCO2 45 mmHg (35-45) 12/13/16 20:55 ABG pO2 49 mmHg (85-104) L* 12/13/16 20:55 ABG O2 Saturation 86 % (95-98) L 12/13/16 20:55 Consult Discharge Plan - Plan Referrals: Rudi Avila MD [Primary Care Provider] - (Web requested 12-14-16)
[2016-12-17] MEDS: SODIUM CHLORIDE 0.9% IVPB SCH (12:40)
[2016-12-17] MEDS: SODIUM ACETATE IVPB SCH (12:40)
[2016-12-18] MEDS: Ipratropium/Albuterol Neb 3 ML IH SCH ×3 (05:05→18:10)
[2016-12-18] MEDS: Levofloxacin 500 MG/100 ML 500 MG/100 ML BAG IVPB SCH (05:10)
[2016-12-18] MEDS: Aspirin 81 MG TAB.CHEW PO SCH (06:29)
[2016-12-18] MEDS: Magnesium Oxide 400 MG TABLET PO SCH (06:29)
[2016-12-18] MEDS: Gabapentin 100 MG CAPSULE PO SCH ×2 (06:29→15:40)
[2016-12-18] MEDS: Insulin LISPRO 300 UNITS/3 ML VIAL SQ SCH ×3 (07:41→17:16)
[2016-12-18 08:03] LABS: Basophils % 0.4 %; Eosinophils # 0.2 K/mcL (0.0-0.6); Eosinophils % 2.6 %; Hematocrit 22.8 % (35.3-44.9); Hemoglobin 7.3 g/dL (11.5-15.4); Immature Granulocytes % 0.6 % (0-4); Lymphocytes # 1.1 K/mcL (0.6-4.6); Lymphocytes % 13.3 %; Mean Corpuscular Hemoglobin 31.3 pg (28.0-33.3); Mean Corpuscular Volume 97.9 fL (83.0-100.0); Mean Platelet Volume 9.9 fL (9.4-12.4); Monocytes # 0.6 K/mcL (0.0-1.3); Monocytes % 7.6 %; Neutrophils # 6.4 K/mcL (1.6-8.9); Platelet Count 297 K/mcL (140-400); Red Blood Count 2.33 M/mcL (3.82-4.97); Red Cell Distribution Width 16.2 % (11.5-14.5); Segmented Neutrophils % 75.5 %
[2016-12-18 08:15] LABS: Magnesium 2.1 mg/dL (1.6-2.6)
--- NOTE | 2016-12-18 09:28 | Discharge Summary ---
Date of Encounter: 12/18/16 Time of Encounter: 09:25 - Discharge Diagnosis (1) Urinary tract infection Priority: Primary Status: Acute Qualifiers: Urinary tract infection type: acute cystitis Hematuria presence: with hematuria Qualified Code(s): N30.01 - Acute cystitis with hematuria (2) HCAP (healthcare-associated pneumonia) Priority: Primary Status: Acute (3) Anemia Priority: Secondary Status: Chronic Qualifiers: Anemia type: unspecified type Qualified Code(s): D64.9 - Anemia, unspecified (4) T2DM (type 2 diabetes mellitus) Priority: Secondary Status: Chronic Qualifiers: Diabetes mellitus complication status: with kidney complications Diabetes mellitus complication detail: with chronic kidney disease Diabetes mellitus nursing home insulin use: unspecified nursing home insulin use status Chronic kidney disease stage: on chronic dialysis Qualified Code(s): E11.22 - Type 2 diabetes mellitus with diabetic chronic kidney disease; N18.6 - End stage renal disease (5) ESRD (end stage renal disease) on dialysis Priority: Secondary Status: Chronic (6) 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 Priority: Secondary Status: Chronic (7) Acute gastroenteritis Priority: Secondary Status: Resolved (8) DVT prophylaxis Priority: Secondary Status: Acute - Discharge Medications Prescriptions: Levofloxacin [Levaquin] 500 mg PO DAILY #2 tablet Home Medications: Insulin LISPRO [HumaLOG] 0 units SQ TIDWM 10/10/15 [History] Multivitamin [Multi-Day Vitamins] 1 tab PO DAILY 10/10/15 [History] Aspirin 81 mg PO DAILY #30 tab.chew 08/09/16 [Rx] Atorvastatin [Lipitor] 40 mg PO HS #30 tablet 08/09/16 [Rx] Acetaminophen [Tylenol] 1,000 mg PO HS PRN 10/09/16 [History] Cinacalcet [Sensipar] 30 mg PO DAILY 10/09/16 [History] DiphenhydraMINE [Benadryl] 25 mg PO HS 10/09/16 [History] Gabapentin [Neurontin] 100 mg PO TID 10/09/16 [History] Lidocaine/Prilocaine [Emla] 1 appl TP PRN PRN 10/09/16 [History] Sodium Thiosulfate 12.5 gm IV MOWEFR 10/09/16 [History] Clopidogrel [Plavix] 75 mg PO DAILY tablet 10/16/16 [Rx] Diphenoxylate/Atropine [Lomotil 2.5 mg/0.025 mg] 1 each PO QID #20 tablet [Rx] Ondansetron ODT [Zofran ODT] 4 mg PO Q8HR #15 tab.rapdis 12/13/16 [Rx] Citalopram [CeleXA] 20 mg PO DAILY 12/14/16 [History] Ferrous Sulfate [Iron] 325 mg PO DAILY 12/14/16 [History] Levofloxacin [Levaquin] 500 mg PO DAILY #2 tablet 12/18/16 [Rx] Allergies/Adverse Reactions: Allergies Penicillins Allergy (Verified 03/22/16 14:43) Hives Date of admission: 12/16/16 13:12 Primary care physician: Rudi Avila MD Consults: Nephrology: Dr. Eng Discharging clinician: Shelbi Flores Anticipated date of discharge: 12/18/16 - Patient Status Disposition: Home Health Service Condition: Good Functional capacity at discharge: uses cane/walker Overall status at discharge: patient is back to baseline - Discharge Instructions Follow Up With: Rudi Avila MD [Primary Care Provider] - (Web requested 12-14-16) Additional Instructions: Please follow up with your primary care physician within one week after your discharge from the hospital. Please follow up with your button pusher and continue your outpatient Hemodialysis sessions as per your button pusher Please continue oral antibiotics as prescribed. Resume all other home medications as prescribed by your primary care physicians. - Diet and Activity Activity: as per physical therapy Diet: diabetic diet, low salt diet Hospital course: Ms. Eng is a 71 year old female with PMH of type II DM, ESRD on HD, HTN, HLD , peripheral neuropathy, b/l LE calciphylaxis, OA, PAD who was admitted for management of UTI and HCAP. She was started on empiric IV abx and therapy was de -escalated as per culture reports. Patient was followed by nephrology and continued on her outpatient HD sessions. She was evaluated by physical therapy and home health was recommended. At this time patient is hemodynamically stable and will be discharged to home with home health after her HD session today. She will finish her course of abx at home. She is to follow up with PCP and button pusher after discharge. Patient demonstrates understanding of her diagnosis and agree with the discharge care and plan. - Time Spent with Patient Total time spent providing and/or coordinating discharge services: Greater than 30 minutes - Constitutional Vitals: Temp Pulse Resp BP Pulse Ox 98.1 F 84 17 113/61 100 12/18/16 07:02 12/18/16 07:02 12/18/16 07:02 12/18/16 07:02 12/18/16 07:02 General appearance: Present: A&O X 3, no acute distress, obese, answers questions appropriately - Head Head exam: Present: atraumatic, normocephalic - Eye Eye exam: Present: normal appearance, conjuntiva pink, sclera anicteric - Respiratory Respiratory exam: Present: CTAB. Absent: accessory muscle use, rales, rhonchi, wheezes - Cardiovascular Cardiovascular exam: Present: RRR, +S1, +S2. Absent: diastolic murmur, gallop, rubs, systolic murmur - GI/Abdominal GI/Abdominal exam: Present: normal bowel sounds, soft, no peritoneal signs. Absent: distended, tenderness - Extremities Exam Extremities exam: Present: pedal edema, warm, radial pulses palpable and symetrical. Absent: calf tenderness, tenderness Additional comments: B/L LE calciphylaxis, dressing intact - Neurological Exam Neurological exam: Present: alert, oriented X3 - Psychiatric Psychiatric exam: Present: normal affect, normal mood
--- NOTE | 2016-12-18 09:29 | Nephrology Progress Note ---
Date of Encounter: 12/18/16 Time of Encounter: 09:00 - Assessment and Plan (1) ESRD (end stage renal disease) on dialysis Current Visit: Yes Status: Chronic ESRD previously on PD, transitioned to HD. Plan for dialysis today. Regularly scheduled for . History of calciphylaxis. Sodium thiosulfate used with dialysis. Will resume outpatient dialysis once patient is discharged. (2) Anemia Current Visit: No Status: Chronic History of chronic anemia. No signs of active bleeding. Hgb 10.0 on admission, 7.3 today (repeated Hgb 7.7). May contribute to increased fatigue. Patient receiving EPO with dialysis. Goal Hgb of 10-11. Qualifiers: Anemia type: unspecified type Qualified Code(s): D64.9 - Anemia, unspecified (3) Pneumonia Current Visit: Yes Status: Acute Management per primary medicine service. Qualifiers: Pneumonia type: due to unspecified organism Laterality: left Lung location: lower lobe of lung Qualified Code(s): J18.1 - Lobar pneumonia, unspecified organism (4) Urinary tract infection Current Visit: Yes Status: Acute Management per primary medicine service. Urine culture positive for Klebsiella and E.coli Qualifiers: Urinary tract infection type: acute cystitis Hematuria presence: with hematuria Qualified Code(s): N30.01 - Acute cystitis with hematuria (5) Acute gastroenteritis Current Visit: Yes Status: Resolved Management per primary medicine service. 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 Seen by Dr. Du with wound care. Treatment with Sodium Thiosulfate. (7) T2DM (type 2 diabetes mellitus) Current Visit: No Status: Chronic Management per primary service. SSI protocol initiated. Qualifiers: Diabetes mellitus complication status: with kidney complications Diabetes mellitus complication detail: with chronic kidney disease Diabetes mellitus fpc insulin use: unspecified fpc insulin use status Chronic kidney disease stage: on chronic dialysis Qualified Code(s): E11.22 - Type 2 diabetes mellitus with diabetic chronic kidney disease; N18.6 - End stage renal disease Subjective Principal diagnosis: HCAP, UTI Interval history: No events overnight. Patient states she feels better overall, especially her legs. Planning for regular dialysis with sodium thiosulfate today. Objective - Vital Signs Vital signs: Vital Signs Temp Pulse Resp BP Pulse Ox 12/18/16 07:02 98.1 F 84 17 113/61 100 12/18/16 05:13 98.2 F 80 16 119/67 100 12/18/16 05:05 16 97 12/18/16 00:45 99.3 F 85 18 115/61 96 12/17/16 22:43 14 95 12/17/16 19:19 99.7 F H 86 18 111/57 99 12/17/16 16:39 18 99 12/17/16 15:47 99.1 F 81 16 118/65 99 12/17/16 11:22 98.5 F 85 16 120/68 100 12/17/16 11:18 16 98 Intake and Output 12/17/16 12/18/16 12/18/16 23:59 07:59 15:59 Intake Total 240 / 240 120 / 120 Balance 240 / 240 120 / 120 Intake: Oral 240 / 240 120 / 120 Other: Meal Dinner Breakfast Percent of Meal Consumed 5% 100% Blood Glucose* 140 95 - General Appearance General appearance: Present: well-developed, well-nourished, appears started age EENT: Present: ATNC, mucous membranes moist, hearing intact, vision intact Neck: Present: supple Respiratory: Present: clear Cardiology: Present: no edema, regular rate, regular rhythm Dialysis Vascular Access: Arteriovenous Fistula (R upper extremity) thrill: Yes bruit: Yes Integumentary: Present: no rash, warm and dry Neurologic: Present: no focal deficit, alert and oriented x3 Musculoskeletal: Present: no deformities, no erythema, no cyanosis Psychiatric: Present: mood/affect appropriate, cooperative - Lab 12/18/16 10:12 12/18/16 07:52 Most recent lab results ABG pH 7.44 pH Units (7.32-7.45) 12/13/16 20:55 ABG pCO2 45 mmHg (35-45) 12/13/16 20:55 ABG pO2 49 mmHg (85-104) L* 12/13/16 20:55 ABG HCO3 30.6 mEQ/L (21-27) H 12/13/16 20:55 ABG O2 Saturation 86 % (95-98) L 12/13/16 20:55 Calcium 8.0 mg/dL (8.6-10.8) L 12/18/16 07:52 Phosphorus 4.0 mg/dL (2.3-4.7) 12/18/16 07:52 Magnesium 2.1 mg/dL (1.6-2.6) 12/18/16 07:52 Consult Discharge Plan - Plan Additional Instructions: Please follow up with your primary care physician within one week after your discharge from the hospital. Please follow up with your bar examiner and continue your outpatient Hemodialysis sessions as per your bar examiner Please continue oral antibiotics as prescribed. Resume all other home medications as prescribed by your primary care physicians. Referrals: Rudi Avila MD [Primary Care Provider] - 12/25/16 1:15 pm (Web requested ) Prescriptions: Levofloxacin [Levaquin] 500 mg PO DAILY #2 tablet
[2016-12-18] MEDS ORDERED: 0.9 % Sodium Chloride 250 ML IVC PRN (09:34)
--- NOTE | 2016-12-18 09:38 | Physician Discharge Referral ---
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 For more information, call the [employer] Tobacco Quit Line at 0-540-QYHJ-NOW. - Services Needed Following services are medically necessary services: Nursing, Home Health Aide, Physical Therapy, Occupational Therapy - Transfer Medications Prescriptions: Levofloxacin [Levaquin] 500 mg PO DAILY #2 tablet Home Medications: Insulin LISPRO [HumaLOG] 0 units SQ TIDWM 10/10/15 [History] Multivitamin [Multi-Day Vitamins] 1 tab PO DAILY 10/10/15 [History] Aspirin 81 mg PO DAILY #30 tab.chew 08/09/16 [Rx] Atorvastatin [Lipitor] 40 mg PO HS #30 tablet 08/09/16 [Rx] Acetaminophen [Tylenol] 1,000 mg PO HS PRN 10/09/16 [History] Cinacalcet [Sensipar] 30 mg PO DAILY 10/09/16 [History] DiphenhydraMINE [Benadryl] 25 mg PO HS 10/09/16 [History] Gabapentin [Neurontin] 100 mg PO TID 10/09/16 [History] Lidocaine/Prilocaine [Emla] 1 appl TP PRN PRN 10/09/16 [History] Sodium Thiosulfate 12.5 gm IV MOWEFR 10/09/16 [History] Clopidogrel [Plavix] 75 mg PO DAILY tablet 10/16/16 [Rx] Diphenoxylate/Atropine [Lomotil 2.5 mg/0.025 mg] 1 each PO QID #20 tablet [Rx] Ondansetron ODT [Zofran ODT] 4 mg PO Q8HR #15 tab.rapdis 12/13/16 [Rx] Citalopram [CeleXA] 20 mg PO DAILY 12/14/16 [History] Ferrous Sulfate [Iron] 325 mg PO DAILY 12/14/16 [History] Levofloxacin [Levaquin] 500 mg PO DAILY #2 tablet 12/18/16 [Rx] Allergies/Adverse Reactions: Allergies Penicillins Allergy (Verified 03/22/16 14:43) Hives Certification: Further, I certify that my clinical findings support that this patient is homebound (i.e. absences from home require considerable and taxing effort and are for medical reasons or religion services or infrequently or short duration when for other reasons) because: Homebound Reason: Patient requires assistance of a person or device to safely leave home Attestation: My signature below is to certify that this patient is under my care and that I, or nurse practitioner, or a physician's assistant womens volleyball coach working with me, has a face-to -face encounter with this patient.
[2016-12-18 10:30] LABS: Hematocrit 24.5 % (35.3-44.9); Hemoglobin 7.7 g/dL (11.5-15.4); Mean Corpuscular HGB Conc 31.4 g/dL (31.6-35.5); Mean Corpuscular Hemoglobin 30.2 pg (28.0-33.3); Mean Corpuscular Volume 96.1 fL (83.0-100.0); Mean Platelet Volume 9.7 fL (9.4-12.4); Platelet Count 299 K/mcL (140-400); Red Blood Count 2.55 M/mcL (3.82-4.97); Red Cell Distribution Width 16.4 % (11.5-14.5)
[2016-12-18] MEDS ORDERED: Sodium Thiosulfate 25 GM in EMPTY BAG 1 EACH IVPB ONE (11:30)
[2016-12-18] MEDS: SODIUM ACETATE IVPB SCH (15:48)
[2016-12-18] MEDS: SODIUM CHLORIDE 0.9% IVPB SCH (15:48)
[2016-12-18 16:04] VITALS: BP 123/82
[2016-12-18] MEDS ORDERED: 0.9 % Sodium Chloride 2,000 ML ONE (16:50)
== END 2016-12-18 17:30 | disposition home health service (06) | DRG 193 ==
LOC: EMEROO 14:38 → 2ANU 14:38
PROVIDERS: ADMIT Internal Medicine; ATTEND Internal Medicine

== ENCOUNTER 2017-01-31 17:02 | Inpatient (IN) ==
[2017-01-31] MEDS ORDERED: 0.9 % Sodium Chloride 1,000 ML IVC SCH (18:45)
--- NOTE | 2017-01-31 19:07 | Emergency Department Note ---
Disposition Clinical Impression: Osteomyelitis of ankle Qualifiers: Osteomyelitis type: unspecified type Laterality: left Qualified Code(s): M86.9 - Osteomyelitis, unspecified Disposition: Admitted As Inpatient Condition: Undetermined Referrals: Rudi Avila MD [Primary Care Provider] - Forms: ED Satisfaction Letter Time of Disposition: 19:57 General Adult HPI - General Chief complaint: ED Skin/Abscess/Foreign Body Stated complaint: foot infection Time Seen by Provider: 01/31/17 18:30 Source: patient Mode of arrival: wheelchair Limitations: no limitations Nursing Notes Reviewed: Yes Vital Signs Reviewed: Yes - History of Present Illness HPI Narrative: 71-year-old female with history of diabetes, 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 Du, and podiatry. After reviewing the patient's wound in the wound clinic he had a conversation with the patient's and she is willing to receive a BKA tomorrow morning. The patient is to be admitted to the hospital. She does have a history of dialysis which she received today and also received 1 dose of IV vancomycin. The associate curator requested no further antibiotics. He requested an admission to the hospitalist. He is already spoke to the vascular surgeon coordinator of evaluation and is on schedule to have the patient have a BKA tomorrow. The patient denies any other complaints at this time. She is resting comfortably in the bed. Location: left, lower extremity Pain Severity: mild Pain Scale: 4 Consistency: constant Improves with: nothing Worsens with: nothing Associated symptoms: Reports: denies other symptoms - Related Data Home Medications Medication Instructions Recorded Confirmed Insulin LISPRO [HumaLOG] 0 units SQ TIDWM 10/10/15 01/31/17 Acetaminophen [Tylenol] 1,000 mg PO HS PRN 10/09/16 01/31/17 Cinacalcet [Sensipar] 30 mg PO DAILY 10/09/16 01/31/17 DiphenhydraMINE [Benadryl] 25 mg PO HS 10/09/16 01/31/17 Gabapentin [Neurontin] 200 mg PO TID 10/09/16 01/31/17 Lidocaine/Prilocaine [Emla] 1 appl TP ONCE PRN 10/09/16 01/31/17 HYDROcodone/Acet 5/325 mg [[place] 1 tab PO Q6H PRN 01/31/17 01/31/17 5-325 mg] Ondansetron ODT [Zofran ODT] 4 mg PO BID PRN 01/31/17 01/31/17 Previous Rx's Medication Instructions Recorded Aspirin 81 mg PO DAILY #30 tab.chew 08/09/16 Clopidogrel [Plavix] 75 mg PO DAILY tablet 10/16/16 Allergies Allergy/AdvReac Type Severity Reaction Status Date / Time Penicillins Allergy Hives Verified 03/22/16 14:43 All systems ED: reviewed and negative except as stated. Constitutional: Denies: fever, chills, weakness, weight change Eyes: Denies: eye pain, eye discharge, vision change ENT ED: Denies: ear pain, throat pain, dental pain, hearing loss, epistaxis, congestion, dysphagia Cardiovascular: Denies: chest pain, palpitations, dyspnea on exertion, edema, syncope Respiratory: Denies: cough, dyspnea, wheezes, hemoptysis, stridor Gastrointestinal: Denies: abdominal pain, nausea, vomiting, diarrhea, constipation, hematemesis, melena, hematochezia Genitourinary: Denies: dysuria, frequency, hematuria, discharge Musculoskeletal: Denies: back pain, neck pain, arthralgia, myalgia Integumentary: Denies: rash, abrasion, lesions Neurological: Denies: headache, weakness, numbness, paresthesias, confusion, abnormal gait, vertigo Past Medical History - Past Medical History Attestation: Yes The following information was validated with the patient. Source: patient Medical history: Reports: arthritis, cancer, diabetes, dialysis, hyperlipidemia , hypertension, kidney stones, malignancy, myocardial infarction, osteoporosis, peripheral artery disease, renal disease, thyroid disease, other Surgical history: Reports: carotid endarterectomy, hysterectomy, orthopedic, other, thyroidectomy, other Psychiatric history: Reports: anxiety, depression JUVENILE OFFICER history: Reports: no JUVENILE OFFICER history - Social History Smoking Status: Never smoker Smokeless Tobacco Status: No Alcohol use: Reports: none Drug use: Reports: none Physical Exam - General Limitations: no limitations General appearance: alert - Head Head exam: atraumatic, normocephalic, normal inspection - Eye Eye exam: Present: normal appearance, PERRL, EOMI - ENT ENT exam: normal exam, normal oropharynx, mucous membranes moist - Chest Chest inspection: Present: normal inspection, symmetric chest wall rise - Respiratory Respiratory exam: Present: normal lung sounds bilaterally - Cardiovascular Cardiovascular exam: Present: regular rate, normal rhythm, normal heart sounds - Abdominal Exam Abdominal exam: Present: soft, Non-Tender. Absent: tenderness, distention, guarding, rebound, rigidity - Expanded Lower Extremity Exam Foot/toe exam: Present: other (Chronic ulceration of the left heel with dressing in place. Wound is currently oozing serosanguineous fluid.) Course Vital Signs Temperature 98.2 F 01/31/17 17:08 Pulse Rate 82 01/31/17 17:08 Respiratory Rate 18 01/31/17 17:08 Blood Pressure 158/91 01/31/17 17:08 O2 Sat by Pulse Oximetry 99 01/31/17 17:08 Temperature 98.2 F 01/31/17 17:08 Pulse Rate 82 01/31/17 17:08 Respiratory Rate 18 01/31/17 17:08 Blood Pressure 158/91 01/31/17 17:08 O2 Sat by Pulse Oximetry 99 01/31/17 17:08 Medical Decision Making - MDM Narrative Medical decision making narrative: -year-old female with diabetes and chronic ulceration of the left lower extremity. She is on schedule to receive BKA tomorrow morning. Anesthesiology has already seen the patient. We are obtaining basic labs and imaging to the hospital. After speaking with the associate curator, he requested no new antibiotics as the patient received IV vancomycin today. The patient denies any complaints other than a small amount of pain in her left heel. We will be admitting the patient to the hospitalist service. - Lab Data Result diagrams: 01/31/17 19:03 01/31/17 19:03 Lab Results 01/31/17 01/31/17 01/31/17 Range/Units 19:03 19:03 19:03 WBC 7.6 (4.3-11.1) K/mcL RBC 3.11 L (3.82-4.97) M/mcL Hgb 9.3 L (11.5-15.4) g/dL Hct 30.1 L (35.3-44.9) % MCV 96.8 (83.0-100.0) fL MCH 29.9 (28.0-33.3) pg MCHC 30.9 L (31.6-35.5) g/dL RDW 15.2 H (11.5-14.5) % Plt Count 366 (140-400) K/mcL MPV 9.2 L (9.4-12.4) fL Immature Gran % 0.9 (0-4) % Seg Neutrophils % 76.4 % Lymphocytes % 12.2 % Monocytes % 5.8 % Eosinophils % 4.2 % Basophils % 0.5 % Neutrophils # 5.8 (1.6-8.9) K/mcL Lymphocytes # 0.9 (0.6-4.6) K/mcL Monocytes # 0.4 (0.0-1.3) K/mcL Eosinophils # 0.3 (0.0-0.6) K/mcL Basophils # 0.0 (0.0-0.2) K/mcL PT 12.6 H (9.4-12.1) Seconds INR 1.2 APTT 26.4 (26.0-36.0) Seconds Sodium 138 (136-145) mEq/L Potassium 4.1 (3.5-4.5) mEq/L Chloride 101 (98-109) mEq/L Carbon Dioxide 25 (19-29) mEq/L BUN 12 (7-20) mg/dL Creatinine 2.46 H (0.57-1.11) mg/dL Est GFR ( Amer) 24 L (> 60) Est GFR (Non-Af Amer) 19 L (> 60) BUN/Creatinine Ratio 5 L (6-26) Glucose 118 H (70-99) mg/dL Calculated Osmolality 287 (280-300) Calcium 8.4 L (8.6-10.8) mg/dL Attestation Statement - Attestation Attestation: I examined this patient and my medical decision-making was reviewed with the LEGAL ADMINISTRATIVE ASSISTANT/PA/Advanced Practice Nurse/Resident Physician. I agree with the documented findings, disposition and treatment plan as described except to the extent set forth below. [id number] time provided Patient sent to the emergency department by her associate curator for a left lower extremity BKA scheduled for tomorrow. Patient appears in no acute distress on exam. Labs ordered by the resident physician Dr. Mackey
[2017-01-31 19:10] LABS: Basophils % 0.5 %; Eosinophils # 0.3 K/mcL (0.0-0.6); Eosinophils % 4.2 %; Hematocrit 30.1 % (35.3-44.9); Hemoglobin 9.3 g/dL (11.5-15.4); Immature Granulocytes % 0.9 % (0-4); Lymphocytes # 0.9 K/mcL (0.6-4.6); Lymphocytes % 12.2 %; Mean Corpuscular HGB Conc 30.9 g/dL (31.6-35.5); Mean Corpuscular Hemoglobin 29.9 pg (28.0-33.3); Mean Corpuscular Volume 96.8 fL (83.0-100.0); Mean Platelet Volume 9.2 fL (9.4-12.4); Monocytes # 0.4 K/mcL (0.0-1.3); Monocytes % 5.8 %; Neutrophils # 5.8 K/mcL (1.6-8.9); Platelet Count 366 K/mcL (140-400); Red Blood Count 3.11 M/mcL (3.82-4.97); Red Cell Distribution Width 15.2 % (11.5-14.5); Segmented Neutrophils % 76.4 %
[2017-01-31 19:15] LABS: INR 1.2; Prothrombin Time 12.6 Seconds (9.4-12.1)
[2017-01-31 19:18] LABS: Activated Partial Thrombo Time 26.4 Seconds (26.0-36.0)
[2017-01-31 19:23] LABS: Calcium 8.4 mg/dL (8.6-10.8); Potassium 4.1 mEq/L (3.5-4.5)
--- NOTE | 2017-01-31 19:29 | Anesthesia Evaluation PreOp ---
Date of Encounter: 01/31/17 Time of Encounter: 19:00 - Past History Planned Operation: Left BKA Cardiac History: [place] (2016 post Hip Pinning), HTN, Hyperlipidemia Pulmonary History: Denies Any Significant HX COAL PULVERIZER OPERATOR History: Denies Any Significant HX Other Medical History: Renal (ESRD last dialyzed 6-14), Diabetes Type II Anesthesia History: No Prior Anesthetic Complications : No Alcohol Use: none Drug use: none Medications and Allergies Insulin LISPRO [HumaLOG] 0 units SQ TIDWM 10/10/15 [History] Multivitamin [Multi-Day Vitamins] 1 tab PO DAILY 10/10/15 [History] Aspirin 81 mg PO DAILY #30 tab.chew 08/09/16 [Rx] Atorvastatin [Lipitor] 40 mg PO HS #30 tablet 08/09/16 [Rx] Acetaminophen [Tylenol] 1,000 mg PO HS PRN 10/09/16 [History] Cinacalcet [Sensipar] 30 mg PO DAILY 10/09/16 [History] DiphenhydraMINE [Benadryl] 25 mg PO HS 10/09/16 [History] Gabapentin [Neurontin] 100 mg PO TID 10/09/16 [History] Lidocaine/Prilocaine [Emla] 1 appl TP PRN PRN 10/09/16 [History] Sodium Thiosulfate 12.5 gm IV MOWEFR 10/09/16 [History] Clopidogrel [Plavix] 75 mg PO DAILY tablet 10/16/16 [Rx] Diphenoxylate/Atropine [Lomotil 2.5 mg/0.025 mg] 1 each PO QID #20 tablet [Rx] Ondansetron ODT [Zofran ODT] 4 mg PO Q8HR #15 tab.rapdis 12/13/16 [Rx] Citalopram [CeleXA] 20 mg PO DAILY 12/14/16 [History] Ferrous Sulfate [Iron] 325 mg PO DAILY 12/14/16 [History] levoFLOXacin [Levaquin] 500 mg PO DAILY #2 tablet 12/18/16 [Rx] Allergies Penicillins Allergy (Verified 03/22/16 14:43) Hives - Meds/Allergy Pre-op Review Medications Reviewed: Yes Allergies Reviewed: Yes Beta Blockers on Current Med List: No Anesthesia Results - Labs 01/31/17 19:03 01/31/17 19:03 - Imaging EKG: report reviewed (SR poor R wave progression) Additional studies: ECHO from 2-2016 LVEF 65%, mod diastolic dysfunction, mild pulm htn RVSP 41mmHg Anesthesia Exam O2 Sat Height 1.57 m Weight 69.853 kg O2 Sat by Pulse Oximetry 99 Vital Signs Temp Pulse Resp BP Pulse Ox 98.2 F 82 18 158/91 99 01/31/17 17:08 01/31/17 17:08 01/31/17 17:08 01/31/17 17:08 01/31/17 17:08 Height: 5'2 Weight: 154 lbs NPO (# of Hours): MN Pain Scale: 1 - HEENT Pupil (Motor): Pupils equal, EOMI Mallampati: III Teeth: Normal Oral Opening: Less than or equal to 3 - COAL PULVERIZER OPERATOR LOC: Oriented COAL PULVERIZER OPERATOR Motor: Normal RUE, Normal LUE, Normal RLE, Normal LLE, Normal Face COAL PULVERIZER OPERATOR Sensory: Normal: RUE, RLE, LLE, Face, Deficit: LUE (paresthesia) - Cardiac Rhythm: Regular Murmur: None JVD: No Carotid Bruit: No - Pulmonary Breath Sounds: bilateral Clear Respiratory Effort: Symmetrical Anesthesia Assess/Plan ASA Score: 4 (PVD ESRD CAD DM) Modified Taran Scale for Level of Consciousness: Cooperative, oriented, and tranquil Anesthetic Plan: General Monitoring Plan: Standard Monitors Recovery Plan: PACU (Discussed GA, agrees to proceed)
--- NOTE | 2017-01-31 21:30 | Vascular/Endovasc Consult Note ---
Date of Encounter: 01/31/17 Time of Encounter: 21:00 Assessment and Plan (1) Acute osteomyelitis of left calcaneus Current Visit: Yes Status: Acute Deep and profound wound of left foot at the level of the ankle. There is exposed calcaneus. Patient has a nonsalvageable wound. I agree with the assertion that below the knee of dictation would be appropriate for this patient. I suggested that this be performed tomorrow to reduce the risk of any further sepsis. All questions were answered. The procedure and the anesthesia was explained in detail to the patient and her . Also the need for postoperative rehabilitation as an inpatient was discussed in detail as well. All questions were answered. - History of Present Illness Consult date: 01/31/17 Requesting physician: Terrance Du Consult reason: Left foot infection and osteomyelitis Chief complaint: Left foot wound History of present illness: Ms. Eng is a 71 year old female Who was seen in the emergency room at the request Dr. Du for evaluation of left leg. The patient has a rather complicated history that involves the development of a deep wound on her left heel beginning in November of this year. In early November she was admitted and required a left first toe amputation. She went on after that developed skin changes and then ulceration at the left heel. This has not responded to conservative therapy and the wound has been aggressively expanding and now there is exposed calcaneus with osteomyelitis of the calcaneus. Evaluation was made for potential limb salvage procedures but this was judged inappropriate in this case and the patient was now asked to be seen by vascular surgery in anticipation for the need for left [id number] amputation. The patient has a history of diabetes and renal failure. She has been receiving dialysis for about 2 years. She had been on peritoneal dialysis until about 3 months ago and then converted to hemodialysis. 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 The patient denies any plication symptoms or ischemic rest pain or ischemic ulcerations prior to the recent history. Past Med Surg Social Fam HX - Past Medical History Medical history: arthritis, cancer, diabetes, dialysis, hyperlipidemia, hypertension, kidney stones, malignancy, myocardial infarction, osteoporosis, peripheral artery disease, renal disease, thyroid disease, other Psychiatric history: anxiety, depression - Past Surgical History Surgical History: carotid endarterectomy, hysterectomy, orthopedic, other ( Right hip fracture), thyroidectomy, other - Social History Smoking Status: Never smoker Smokeless Tobacco Status: No Alcohol use: none Drug use: none - Family History Mother Adopted: No Family Member Ethnicity: Non- Living Status: Hx Family Cardiac Disorders: No Hx Family Respiratory Disorders: Yes Hx Family Cancer: Yes Hx Family GI Disorders: No Hx Family Endocrine Disorder: No Hx Family Neuromuscular Disorders: No Hx Family Neurologic Disorders: No Hx Family HEENT Disorders: No Hx Family Autoimmune Disorders: No Father Adopted: No Family Member Ethnicity: Non- Living Status: Hx Family Cardiac Disorders: Yes Hx Family Respiratory Disorders: Yes Hx Family Cancer: No Hx Family GI Disorders: No Hx Family Endocrine Disorder: Yes Hx Family Neuromuscular Disorders: No Hx Family Neurologic Disorders: No Hx Family HEENT Disorders: No Hx Family Autoimmune Disorders: No Medications and Allergies Insulin LISPRO [HumaLOG] 0 units SQ TIDWM 10/10/15 [History] Aspirin 81 mg PO DAILY #30 tab.chew 08/09/16 [Rx] Acetaminophen [Tylenol] 1,000 mg PO HS PRN 10/09/16 [History] Cinacalcet [Sensipar] 30 mg PO DAILY 10/09/16 [History] DiphenhydraMINE [Benadryl] 25 mg PO HS 10/09/16 [History] Gabapentin [Neurontin] 200 mg PO TID 10/09/16 [History] Lidocaine/Prilocaine [Emla] 1 appl TP ONCE PRN 10/09/16 [History] Clopidogrel [Plavix] 75 mg PO DAILY tablet 10/16/16 [Rx] HYDROcodone/Acet 5/325 mg [[place] 5-325 mg] 1 tab PO Q6H PRN 01/31/17 [History] Ondansetron ODT [Zofran ODT] 4 mg PO BID PRN 01/31/17 [History] Allergies Penicillins Allergy (Verified 03/22/16 14:43) Hives All Systems Review: A 10-system review of systems was performed and is negative for pertinent findings except as documented above in the HPI. Exam Vital Signs, Last 4 Hours Resp BP 01/31/17 20:36 20 177/66 General: Present: Conversant, No Apparent Distress, Well developed, Well nourished HEENT: Present: Atraumatic, Normocephaly, Trachea midline Neck: Present: Left Carotid bruit, Right Carotid bruit. Absent: JVD, Midline deformity, Tracheal deviation Cardiac: Present: Reg Rate and Rhythm, Normal S1 and S2 Lungs: Present: Normal Breath Sounds Neuro: Present: Alert and responsive, No focal deficits noted, Cranial nerves grossly intact Abdomen: Present: Soft, Non-tender. Absent: Hepatosplenomegaly, Masses Vascular: Present: Normal capillary refill, Pulse, normal (The patient's femoral and popliteal pulses are 2+ bilaterally. I do not palpate pedal pulses in either side of the feet are warm and pink. I do not palpate radial pulses on either side. The patient does have a functioning right upper arm AV fistula.), Amputation(s) (Status post left first toe amputation), Other (I removed the dressing from the left lower extremity. I inspected the heel wound which is deep with exposed calcaneus at the base. The patient also has superficial ulcerations on the posterior aspect of the mid calf. There is discoloration of the skin in the distal to mid calf posteriorly.). Absent: Clubbing, Cyanosis Skin: Present: No rashes noted on visualized skin Consult Discharge Plan - Plan Referrals: Rudi Avila MD [Primary Care Provider] - Dre Anderson MD [Partnered Physician] - (Patient is to follow-up with Dr. Anderson in 6 weeks.)
[2017-01-31] MEDS ORDERED: ceFAZolin 2,000 MG in D5% in Water (Mini-Bag+) 100 ML IVPB ONE (21:37)
[2017-01-31] MEDS ORDERED: *HR* HYDROcodone/Acet 5/325 mg TABLET PO PRN (22:50)
[2017-01-31] MEDS ORDERED: Naloxone 0.4 MG/ML INJ IVP PRN (23:48)
[2017-01-31] MEDS ORDERED: Dextrose Gel 15 GM PO PRN ×2 (23:53)
[2017-01-31] MEDS ORDERED: D5% in Water 1,000 ML IVC PRN (23:53)
[2017-01-31] MEDS ORDERED: *HR* Dextrose 50 % in Water (Syg) 50 ML SYRINGE IVP PRN (23:53)
--- NOTE | 2017-01-31 23:55 | Internal Med History&Physical ---
Date of Encounter: 02/01/17 Time of Encounter: 23:54 Assessment and Plan (1) Acute osteomyelitis of left calcaneus Current visit: Yes Status: Acute 1 patient is to undergo left BKA tomorrow due to osteomyelitis of left calcaneus. She has been receiving vancomycin past week during dialysis. We will obtain blood cultures and continue vancomycin until blood cultures continue negative 2 vascular surgery consult and for BKA preop lab drawn 3 we will consult cardiology for preoperative clearance (2) DVT prophylaxis Current visit: No Status: Acute Heparin subcutaneous (3) IDDM (insulin dependent diabetes mellitus) Current visit: No Status: Acute 1 present the patient is nothing by mouth Accu-Cheks every 6 hours with sliding scale insulin (4) ESRD (end stage renal disease) on dialysis Current visit: No Status: Chronic 1 we will consult nephrology for dialysis 2 monitor intake and output and daily weights 3 monitor chemistry and electrolytes Internal Medicine - H&P: HPI Chief complaint: Wound to the foot Admitted From: Emergency Dept Plans for Post Hospital Care: Home History of present illness: Ms. Eng is a 71 year old female patient with past medical history of hypertension diabetes end-stage renal disease on dialysis coronary artery disease PAD. The patient has extensive medical history deep wound on her left heel which originated approximately November this year . At that time she required a left first toe amputation. Afterwards she developed skin changes, ulceration develop to left heel. This has not responded to conservative therapy in the wound has expanded and she has osteomyelitis of the calcaneus and exposed calcaneus. She went to her production control planner today for evaluation and was recommended for left below the knee amputation which she agreed. Patient was to the ER for further evaluation and admission. Earlier sedation patient did undergo dialysis without any complications. Lab work was obtained which was unremarkable EKG with ST-T wave abnormalities noted. Patient was admitted presently she denies any pain or discomfort she is alert and appropriate on simple commands when symptoms are clear heart sounds S1-S2 with murmurs. Less than dressing intact. Past records indicated left wound culture grew MRSA blood cultures are negative for any growth. Patient has been CVA vancomycin with dialysis. We will continue vancomycin until blood cultures are negative preoperative clearance patient has poor functional capacity she has multiple clinical predictors including end-stage renal disease diabetes hypertension peripheral vascular disease.patient has history of coronary artery disease with 70-80% distal LAD disease as well as 50% ostial circumflex. Patient would be a moderate risk for perioperative cardiac complications after surgery cardiology services requested to see patient. I reviewed this case with Dr. Hodges who agrees with plan Past Med Surg Social Fam HX - Past Medical History Medical history: arthritis, cancer, diabetes, dialysis, hyperlipidemia, hypertension, kidney stones, malignancy, myocardial infarction, osteoporosis, peripheral artery disease, renal disease, thyroid disease, other Psychiatric history: anxiety, depression - Past Surgical History Surgical History: carotid endarterectomy, hysterectomy, orthopedic, other, thyroidectomy, other - Social History Smoking Status: Never smoker Smokeless Tobacco Status: No Alcohol use: none Drug use: none - Family History Mother Adopted: No Family Member Ethnicity: Non- Living Status: Hx Family Cardiac Disorders: No Hx Family Respiratory Disorders: Yes Hx Family Cancer: Yes Hx Family GI Disorders: No Hx Family Endocrine Disorder: No Hx Family Neuromuscular Disorders: No Hx Family Neurologic Disorders: No Hx Family HEENT Disorders: No Hx Family Autoimmune Disorders: No Father Adopted: No Family Member Ethnicity: Non- Living Status: Hx Family Cardiac Disorders: Yes Hx Family Respiratory Disorders: Yes Hx Family Cancer: No Hx Family GI Disorders: No Hx Family Endocrine Disorder: Yes Hx Family Neuromuscular Disorders: No Hx Family Neurologic Disorders: No Hx Family HEENT Disorders: No Hx Family Autoimmune Disorders: No Internal Medicine - H&P: Meds Insulin LISPRO [HumaLOG] 0 units SQ TIDWM 10/10/15 [History] Aspirin 81 mg PO DAILY #30 tab.chew 08/09/16 [Rx] Acetaminophen [Tylenol] 1,000 mg PO HS PRN 10/09/16 [History] Cinacalcet [Sensipar] 30 mg PO DAILY 10/09/16 [History] DiphenhydraMINE [Benadryl] 25 mg PO HS 10/09/16 [History] Gabapentin [Neurontin] 200 mg PO TID 10/09/16 [History] Lidocaine/Prilocaine [Emla] 1 appl TP ONCE PRN 10/09/16 [History] Clopidogrel [Plavix] 75 mg PO DAILY tablet 10/16/16 [Rx] HYDROcodone/Acet 5/325 mg [[place] 5-325 mg] 1 tab PO Q6H PRN 01/31/17 [History] Ondansetron ODT [Zofran ODT] 4 mg PO BID PRN 01/31/17 [History] Allergies Penicillins Allergy (Verified 03/22/16 14:43) Hives All Systems PM: A 10-system review of systems was performed and is negative for pertinent findings except as documented above in the HPI. - Constitutional Constitutional: no chills, no fever(s), no night sweats - EENT Eyes: no change in vision, no discharge, no pain, no photophobia Ears: no ear discharge, no ear pain, no tinnitus Nose, mouth and throat: no dysphagia, no nasal discharge, no neck pain, no sore throat - Cardiovascular Cardiovascular ROS IM: no chest pain, no diaphoresis, no dyspnea, no lightheadedness, no palpitations, no syncope - Respiratory Respiratory: no cough, no dyspnea, no wheezing, no excessive phlegm production - Gastrointestinal Gastrointestinal: no abdominal pain, no diarrhea, no hematemesis, no hematochezia, no melena, no nausea, no vomiting - Genitourinary Genitourinary: no change in urinary stream, no dysuria, no flank pain, no hematuria - Musculoskeletal Musculoskeletal ROS IM: no numbness, no tingling - Integumentary Integumentary IM: no rash, no unusual bruising - Neurological Neurological ROS: no confusion, no convulsions, no focal weakness, no numbness, no tingling, no tremor(s) - Constitutional Vitals: Temp Pulse Resp BP Pulse Ox 98 F 89 16 169/79 96 01/31/17 21:28 01/31/17 21:28 01/31/17 21:28 01/31/17 21:28 01/31/17 21:28 General appearance: Present: A&O X 3, answers questions appropriately - Head Head exam: Present: atraumatic, normocephalic - Eye Eye exam: Present: PERRL, conjuntiva pink, sclera anicteric Pupils: Present: PERRL - Neck Neck exam general surgery: Present: supple, trachea midline. Absent: lymphadenopathy - Respiratory Respiratory exam: Present: CTAB. Absent: accessory muscle use, rales, rhonchi, wheezes - Cardiovascular Cardiovascular exam: Present: RRR, +S1, +S2. Absent: diastolic murmur, gallop, rubs, systolic murmur - GI/Abdominal GI/Abdominal exam: Present: normal bowel sounds, soft, no peritoneal signs. Absent: distended, tenderness - Extremities Exam Extremities exam: Present: warm, radial pulses palpable and symetrical. Absent : calf tenderness, cyanotic, pedal edema Additional comments: Left foot dressing intact missing first digit - Neurological Exam Neurological exam: Present: CN II-XII intact, oriented X3, no focal deficits. Absent: pronater drift, facial droop, speech deficit - Skin Skin exam: Present: dry, intact Internal Med - H&P Results - Labs CBC & Chem 7: 01/31/17 19:03 01/31/17 19:03
[2017-02-01] MEDS: Insulin LISPRO 300 UNITS/3 ML VIAL SQ SCH ×4 (00:39→16:18)
[2017-02-01] MEDS ORDERED: *HR* Morphine 2 MG/ML SYRINGE IVP PRN ×2 (00:43→18:04)
--- NOTE | 2017-02-01 00:48 | Event Note ---
Date of Encounter: 02/01/17 Time of Encounter: 00:46 Patient and examined with nurse practitioner. Patient is a left heel wound with osteomyelitis of left calcaneus. Plan is to have left delineating amputation tomorrow. Wound culture groomers. She mentioned that she has been for the wet past week on vancomycin with dialysis. I will continue vancomycin until blood cultures are negative. She is an aspirin Plavix, continue. With regards to preoperative clearance: patient has for functional capacity. She has multiple clinical predictors including end-stage renal disease, diabetes mellitus, hypertension, dyslipidemia, peripheral vascular disease. Patient also has unrevascularized coronary disease: 70 to 80% distant LAD disease as well as 50% osteal circ. Patient would be at least a moderate risk for perioperative cardiac complications after surgery. I am going to ask audiology services to see the patient. She is focal.
[2017-02-01] MEDS ORDERED: *HR* HYDROcodone/Acet 5/325 mg TABLET PO PRN (00:53)
[2017-02-01] MEDS ORDERED: *HR* Morphine 2 MG/ML SYRINGE ONE (00:55)
[2017-02-01] MEDS ORDERED: Vancomycin 1,000 MG in D5% in Water 250 ML IVPB SCH (01:00)
[2017-02-01] MEDS: *HR* Morphine 2 MG/ML SYRINGE IVP PRN ×3 (01:03→21:34)
[2017-02-01] MEDS ORDERED: Vancomycin 1,000 MG in D5% in Water 250 ML IVPB ONE (01:30)
[2017-02-01 04:17] LABS: Basophils % 0.5 %; Eosinophils # 0.3 K/mcL (0.0-0.6); Eosinophils % 5.3 %; Hemoglobin 7.2 g/dL (11.5-15.4); Lymphocytes # 1.3 K/mcL (0.6-4.6); Lymphocytes % 22.1 %; Mean Corpuscular Hemoglobin 28.8 pg (28.0-33.3); Mean Platelet Volume 9.2 fL (9.4-12.4); Monocytes # 0.4 K/mcL (0.0-1.3); Monocytes % 7.2 %; Neutrophils # 3.7 K/mcL (1.6-8.9); Platelet Count 291 K/mcL (140-400); Red Cell Distribution Width 15.2 % (11.5-14.5); Segmented Neutrophils % 63.9 %
[2017-02-01 04:40] LABS: Calcium 8.1 mg/dL (8.6-10.8); Potassium 3.7 mEq/L (3.5-4.5)
[2017-02-01] MEDS ORDERED: Aspirin 81 MG TAB.CHEW PO SCH (09:00)
--- NOTE | 2017-02-01 10:27 | Cardiology Consult Note ---
Date of Encounter: 02/01/17 Time of Encounter: 09:00 Assessment and Plan (1) Preop cardiovascular exam Current Visit: No Status: Acute Ms Eng was admitted to undergo left BKA for heel ulcer. She has known severe CAD that is not amendable to PCI seen on [facility] in July 2016. There was a 70-80 % stenosis in the distal LAD that was to small for PCI. There was also a 50% stenosis in the ostial circumflex artery. Recent TTE shows preserved EF. She admits to intermittent chest pain over the last month and recent stress test at [facility]. Records from [facility] ordered. Further recommendations based on recent stress test results. (2) CAD (coronary artery disease) Current Visit: Yes Status: Acute Continue asa, statin, and bb cherelle-operatively. Qualifiers: Coronary Disease-Associated Artery/Lesion type: [place] artery [place] vs. transplanted heart: [place] heart Associated angina: with stable angina Qualified Code(s): I25.118 - Atherosclerotic heart disease of [place] coronary artery with other forms of angina pectoris (3) Carotid artery disease Current Visit: Yes Status: Acute Severe carotid artery disease seen on [facility] 05/2016. Recommend continued monitoring by vascular surgery. Qualifiers: Laterality: right Qualified Code(s): I77.9 - Disorder of arteries and arterioles, unspecified Discussion w patient/family: The assessment and plan as outlined above was discussed with the patient and/or family members who expressed understanding and agreement. All questions were answered. Thank you for involving us in the care of your patient. Please call with any questions. History of Present Illness Consult date: 02/01/17 Requesting physician: Tom Hodges Consult reason: Pre-operative cardiac risk assessment Chief complaint: Left heel wound History of present illness: Ms. Eng is a 71 year old female who was seen by her smog technician yesterday for a left heel ulcer. She was recommended for a left below the knee amputation amputation and admitted to the hospital. Cardiology consulted for pre-operative cardiovascular assessment. She has a history of CAD. Last [facility] 07/30/2016 revealed severe 70-80% stenosis in the distal LAD, vessel was to small for intervention. There was mild to moderate CAD remaining. Medical management recommended. Past medical history also significant for ESRD on hemodyalisis, PVD with gangrene ulcers, s/p left popliteal angioplasty, HTN, HLD IDDM, and severe carotid artery disease. She c/o intermittent chest pain across her chest occurring about once a week over the last month. Pain occurs at rest and is resolved when she relaxes. She denies associated symptoms. Denies SOB, edema, or weight gain. Denies orthopnea or PND. She reports having a stress test two weeks ago at [facility] that may have been abnormal. The stress test was completed for kidney transplant work-up. Previous cardiacvascular testing: [facility] 08/03/17 : 70-80% dLAD stenosis, 30% mLAD stenosis, 40% 1st diagonal stenosis, 40% mCX stenosis, 30% ramus stenosis, 30% mRCA stenosis. TTE 10/11/16 : EF 65%, moderate diastolic dysfunction, mild aortic stenosis, moderate MAC, Mild mitral stenosis, mild mitral regurgitation. mild pulmonary hypertension. CUS 05/2016- Critical 80-99% stenosis proximal right coronary artery. Past Med Surg Social Fam HX - Past Medical History Attestation: Yes The following information was validated with the patient. Medical history: arthritis, cancer, diabetes, dialysis, hyperlipidemia, hypertension, kidney stones, malignancy, myocardial infarction, osteoporosis, peripheral artery disease, renal disease, thyroid disease, other Psychiatric history: anxiety, depression - Past Surgical History Surgical History: carotid endarterectomy, hysterectomy, orthopedic, other, thyroidectomy, other - Social History Smoking Status: Never smoker Smokeless Tobacco Status: No Alcohol use: none Drug use: none - Family History Mother Adopted: No Family Member Ethnicity: Non- Living Status: Hx Family Cardiac Disorders: No Hx Family Respiratory Disorders: Yes Hx Family Cancer: Yes Hx Family GI Disorders: No Hx Family Endocrine Disorder: No Hx Family Neuromuscular Disorders: No Hx Family Neurologic Disorders: No Hx Family HEENT Disorders: No Hx Family Autoimmune Disorders: No Father Adopted: No Family Member Ethnicity: Non- Living Status: Hx Family Cardiac Disorders: Yes Hx Family Respiratory Disorders: Yes Hx Family Cancer: No Hx Family GI Disorders: No Hx Family Endocrine Disorder: Yes Hx Family Neuromuscular Disorders: No Hx Family Neurologic Disorders: No Hx Family HEENT Disorders: No Hx Family Autoimmune Disorders: No Medications and Allergies Insulin LISPRO [HumaLOG] 0 units SQ TIDWM 10/10/15 [History] Aspirin 81 mg PO DAILY #30 tab.chew 08/09/16 [Rx] Acetaminophen [Tylenol] 1,000 mg PO HS PRN 10/09/16 [History] Cinacalcet [Sensipar] 30 mg PO DAILY 10/09/16 [History] DiphenhydraMINE [Benadryl] 25 mg PO HS 10/09/16 [History] Gabapentin [Neurontin] 200 mg PO TID 10/09/16 [History] Lidocaine/Prilocaine [Emla] 1 appl TP ONCE PRN 10/09/16 [History] Clopidogrel [Plavix] 75 mg PO DAILY tablet 10/16/16 [Rx] HYDROcodone/Acet 5/325 mg [[place] 5-325 mg] 1 tab PO Q6H PRN 01/31/17 [History] Ondansetron ODT [Zofran ODT] 4 mg PO BID PRN 01/31/17 [History] Allergies Penicillins Allergy (Verified 03/22/16 14:43) Hives All Systems Review: A 10-system review of systems was performed and is negative for pertinent findings except as documented above in the HPI. Physical Examination Vital Signs, Last 4 Hours Temp Pulse Resp BP Pulse Ox 02/01/17 07:19 98.3 F 79 16 144/74 93 General: Conversant, No Apparent Distress HEENT: Atraumatic, Normocephaly, Mucus Membranes Moist Neck: No JVD, Normal carotid pulses Cardiac: Reg Rate and Rhythm, Normal S1 and S2, No Murmur, Other (Sr on telemetry) Lungs: Normal Breath Sounds, No Wheeze, Rales, Rhonchi Neuro: Alert and responsive, No focal deficits noted Abdomen: Soft, Non-Tender Musculoskeletal: No Chest Wall Tenderness Extremities: No Clubbing, No Cyanosis, No Edema, Normal Pulses, Other (kerlix dressing D/I on BLE. ) Results 02/01/17 03:47 02/01/17 03:47 Lab Results 02/01/17 02/01/17 03:47 03:47 WBC 5.8 Hgb 7.2 L D Hct 24.0 L Plt Count 291 Sodium 140 Potassium 3.7 Chloride 105 Carbon Dioxide 26 BUN 14 Creatinine 2.76 H Glucose 86 Calcium 8.1 L - Imaging and Cardiology Echo: report reviewed Cardiac cath: report reviewed - EKG Interpretation EKG results cardiology: personally reviewed (SR with no acute ST changes.) Consult Discharge Plan - Plan Referrals: Rudi Avila MD [Primary Care Provider] - Dre Anderson MD [Partnered Physician] - (Patient is to follow-up with Dr. Anderson in 6 weeks.)
--- NOTE | 2017-02-01 10:31 | Internal Med Progress Note ---
Date of Encounter: 02/01/17 Time of Encounter: 10:29 - Assessment and plan (1) Acute osteomyelitis of left calcaneus Current Visit: Yes Status: Acute Assessment and plan: Patient was sent from podiatry office for acute osteomyelitis of left calcaneus along with new abscess on the lateral aspect of he which has been drained in the office. She also has known cultures from 01/17/2017 growing MRSA and she has been receiving vancomycin during hemodialysis. Continue IV vancomycin for now. Patient has been evaluated by vascular surgery with plan to perform left below-knee amputation today. Patient is at least at moderate perioperative risk due to her multiple cardiovascular risk factors including CAD not amenable to revascularization. Cardiology consult for clearance. Continue supportive care and pain control with when necessary IV morphine. PT/ OT evaluation after surgery. (2) PAD (peripheral artery disease) Current Visit: Yes Status: Chronic (3) Essential hypertension Current Visit: Yes Status: Chronic Assessment and plan: Blood pressure noted to be well controlled. Continue home medications. (4) Diabetes mellitus with neuropathy Current Visit: Yes Status: Chronic Assessment and plan: Accu-Chek blood glucose monitoring with sliding scale insulin. Diabetic diet when tolerated. Qualifiers: Diabetes mellitus type: type 2 Diabetes mellitus correction insulin use: with long term care phlebotomist use Qualified Code(s): E11.40 - Type 2 diabetes mellitus with diabetic neuropathy, unspecified; Z79.4 - termite control technician (current) use of insulin (5) ESRD (end stage renal disease) on dialysis Current Visit: Yes Status: Chronic Assessment and plan: Will consult nephrology for hemodialysis needs-MWF while inpatient. No reported missed dialysis sessions. (6) Anemia of chronic disease Current Visit: Yes Status: Chronic (7) CAD (coronary artery disease) Current Visit: Yes Status: Chronic Assessment and plan: Continue aspirin, Plavix, statin. Started beta yossi per cardiology. Qualifiers: Coronary Disease-Associated Artery/Lesion type: [place] artery [place] vs. transplanted heart: [place] heart Associated angina: with stable angina Qualified Code(s): I25.118 - Atherosclerotic heart disease of [place] coronary artery with other forms of angina pectoris - Subjective Interval history: Feels okay; no chest pain, dyspnea, leg pain; awaiting left BKA today; - Constitutional Vitals: Temp Pulse Resp BP Pulse Ox 98.3 F 79 16 144/74 93 02/01/17 07:19 02/01/17 07:19 02/01/17 07:19 02/01/17 07:19 02/01/17 07:19 General appearance: Present: A&O X 3, answers questions appropriately - Respiratory Respiratory exam: Present: CTAB. Absent: accessory muscle use, rales, rhonchi, wheezes - Cardiovascular Cardiovascular exam: Present: RRR, +S1, +S2. Absent: diastolic murmur, gallop, rubs, systolic murmur - GI/Abdominal GI/Abdominal exam: Present: normal bowel sounds, soft, no peritoneal signs. Absent: distended, tenderness - Extremities Exam Extremities exam: Present: warm, radial pulses palpable and symetrical. 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 Absent: pronater drift, facial droop, speech deficit Internal Medicine: Result - Labs CBC & Chem 7: 02/01/17 03:47 02/01/17 03:47 Labs: Short CBC 02/01/17 Range/Units 03:47 WBC 5.8 (4.3-11.1) K/mcL Hgb 7.2 L D (11.5-15.4) g/dL Hct 24.0 L (35.3-44.9) % Plt Count 291 (140-400) K/mcL Neutrophils # 3.7 (1.6-8.9) K/mcL BMP 02/01/17 03:47 Sodium 140 Potassium 3.7 Chloride 105 Carbon Dioxide 26 BUN 14 Creatinine 2.76 H Glucose 86 Calcium 8.1 L - ABG Interpretation ABG results: PT/INR, D-dimer PT 12.6 Seconds (9.4-12.1) H 01/31/17 19:03 Consult Discharge Plan - Plan Referrals: Rudi Avila MD [Primary Care Provider] - (web request 02/01/2017) Dre Anderson MD [Partnered Physician] - (Patient is to follow-up with Dr. Anderson in 6 weeks.)
--- NOTE | 2017-02-01 10:55 | Nephrology Consult Note ---
Date of Encounter: 02/01/17 Time of Encounter: 10:51 Assessment and Plan (1) Acute osteomyelitis of left calcaneus Current Visit: Yes Status: Acute Scheduled for left below the knee amputation later today per podiatry team (2) Anemia Current Visit: No Status: Chronic Patient normally runs in the low 8s for hgb Goal 10-11 Dropped from 9.3 yesterday to 7.2 today Qualifiers: Anemia type: unspecified type Qualified Code(s): D64.9 - Anemia, unspecified (3) ESRD (end stage renal disease) on dialysis Current Visit: No Status: Chronic Had full dialysis treatment yesterday Plan for HD tomorrow When diet resumed will need a renal diet and fluid restriction of 1.5 liters/day Avoid nephrotoxins if possible History of Present Illness - Reason for Consult Consult date: 02/01/17 end stage renal disease - Chief Complaint Foot infection, ESRD on dialysis - History of Present Illness Ms. Eng is a 71 year old female patient with past medical history of hypertension, diabetes, end-stage renal disease on dialysis, coronary artery disease, and PAD who is well known to our practice. She gets hemodialysis three times a week on M,, at [facility]. Patient has had ongoing left foot infection and heel ulcers. Bread Wrapper Operator recommends left below the knee amputation which she has agreed to. Nephrology has been consulted to manage patient's dialysis while hospitalized. I actually seen Ms Eng yesterday in the outpatient dialysis center where she received a full dialysis treatment. Past Med Surg Social Fam HX - Past Medical History Medical history: arthritis, cancer, diabetes, dialysis, hyperlipidemia, hypertension, kidney stones, malignancy, myocardial infarction, osteoporosis, peripheral artery disease, renal disease, thyroid disease, other Psychiatric history: anxiety, depression - Past Surgical History Surgical History: carotid endarterectomy, hysterectomy, orthopedic, other, thyroidectomy, other - Social History Smoking Status: Never smoker Smokeless Tobacco Status: No Alcohol use: none Drug use: none - Family History Mother Adopted: No Family Member Ethnicity: Non- Living Status: Hx Family Cardiac Disorders: No Hx Family Respiratory Disorders: Yes Hx Family Cancer: Yes Hx Family GI Disorders: No Hx Family Endocrine Disorder: No Hx Family Neuromuscular Disorders: No Hx Family Neurologic Disorders: No Hx Family HEENT Disorders: No Hx Family Autoimmune Disorders: No Father Adopted: No Family Member Ethnicity: Non- Living Status: Hx Family Cardiac Disorders: Yes Hx Family Respiratory Disorders: Yes Hx Family Cancer: No Hx Family GI Disorders: No Hx Family Endocrine Disorder: Yes Hx Family Neuromuscular Disorders: No Hx Family Neurologic Disorders: No Hx Family HEENT Disorders: No Hx Family Autoimmune Disorders: No Medications and Allergies Insulin LISPRO [HumaLOG] 0 units SQ TIDWM 10/10/15 [History] Aspirin 81 mg PO DAILY #30 tab.chew 08/09/16 [Rx] Acetaminophen [Tylenol] 1,000 mg PO HS PRN 10/09/16 [History] Cinacalcet [Sensipar] 30 mg PO DAILY 10/09/16 [History] DiphenhydraMINE [Benadryl] 25 mg PO HS 10/09/16 [History] Gabapentin [Neurontin] 200 mg PO TID 10/09/16 [History] Lidocaine/Prilocaine [Emla] 1 appl TP ONCE PRN 10/09/16 [History] Clopidogrel [Plavix] 75 mg PO DAILY tablet 10/16/16 [Rx] HYDROcodone/Acet 5/325 mg [[place] 5-325 mg] 1 tab PO Q6H PRN 01/31/17 [History] Ondansetron ODT [Zofran ODT] 4 mg PO BID PRN 01/31/17 [History] Allergies Penicillins Allergy (Verified 03/22/16 14:43) Hives Review of Systems All Systems: reviewed and no additional remarkable complaints except as stated Constitutional: no chills, no fever(s) Cardiovascular: leg edema, pedal edema, no chest pain, no dyspnea Respiratory: no cough, no dyspnea Gastrointestinal: no diarrhea, no nausea, no vomiting Integumentary: skin pain, skin ulcer, swelling, wounds (left foot) Neurological: no behavioral changes, no confusion Psychiatric: no anxiety, no behavioral changes, no confusion Exam - Vital Signs Vital signs: Initial Vital Signs Temp Pulse Resp BP Pulse Ox 98.2 F 82 18 158/91 99 01/31/17 17:08 01/31/17 17:08 01/31/17 17:08 01/31/17 17:08 01/31/17 17:08 Vital Signs - Last 8 Hours Temp Pulse Resp BP Pulse Ox 02/01/17 07:19 98.3 F 79 16 144/74 93 02/01/17 04:00 98.5 F 82 16 148/62 90 Intake and Output 01/31/17 02/01/17 02/01/17 23:59 07:59 15:59 Intake Total 0 / 0 Balance 0 / 0 Intake: Oral 0 / 0 Other: Meal NPO Percent of Meal Consumed 0% # Voids 1 Blood Glucose* 110 - General Appearance General appearance: well-developed, well-nourished, chronically ill EENT: ATNC, mucous membranes moist, hearing intact, vision intact Neck: supple Respiratory: clear Cardiology: edema, normal S1, normal S2 - Dialysis Access Dialysis Vascular Access: Arteriovenous Fistula Gastrointestinal: no tenderness, no guarding Integumentary: warm and dry Neurologic: alert and oriented x3 Psychiatric: mood/affect appropriate, cooperative Results - Lab Results 02/01/17 03:47 02/01/17 03:47 Most recent lab results Calcium 8.1 mg/dL (8.6-10.8) L 02/01/17 03:47 Consult Discharge Plan - Plan Referrals: Rudi Avial MD [Primary Care Provider] - Dre Anderson MD [Partnered Physician] - (Patient is to follow-up with Dr. Anderson in 6 weeks.)
[2017-02-01 11:57] LABS: % Iron Saturation 38 % (15-50); Iron 36 mcg/dL (50-170); Transferrin 67 mg/dL (180-382)
[2017-02-01 12:18] LABS: Ferritin 1369 ng/ml (5-204)
[2017-02-01 12:31] LABS: Folate 4.3 ng/mL (7.0-31.4)
[2017-02-01] MEDS ORDERED: Aminoglycoside Consult 1 EACH MC ONE (14:10)
--- NOTE | 2017-02-01 14:53 | Electrocardiograph Report ---
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
[2017-02-01] MEDS ORDERED: Ondansetron 4 MG/2 ML VIAL ONE ×2 (15:56→18:24)
[2017-02-01] MEDS ORDERED: *HR* FentaNYL (PF) 100 MCG/2 ML VIAL ONE (15:56)
[2017-02-01] MEDS ORDERED: Lidocaine -MPF 2% 2 ML VIAL ONE (15:56)
[2017-02-01] MEDS ORDERED: *HR* Propofol 200 MG/20 ML VIAL IVP ONE (15:56)
[2017-02-01] MEDS ORDERED: Ketorolac 30 MG/ML VIAL ONE (15:56)
[2017-02-01] MEDS ORDERED: EPHEDrine 50 MG/ML VIAL ONE (16:52)
[2017-02-01] MEDS ORDERED: *HR* HYDROmorphone 2 MG/ML SYRINGE ONE (17:02)
[2017-02-01] MEDS ORDERED: *HR* Heparin 5,000 UNIT/ML VIAL SQ SCH (18:00)
[2017-02-01] MEDS ORDERED: *HR* HYDROmorphone (PF) 1 MG/ML SYRINGE IVP PRN (18:04)
[2017-02-01] MEDS ORDERED: *HR* Promethazine 25 MG/ML VIAL IVP PRN (18:04)
[2017-02-01] MEDS ORDERED: *HR* Succinylcholine 200 MG/10 ML VIAL IVP ONE (18:24)
[2017-02-01] MEDS ORDERED: Neostigmine Methylsulfate 3 MG/3 ML SYRINGE ONE (18:25)
--- NOTE | 2017-02-01 18:42 | Operative Note ---
Date of procedure: 02/01/17 Pre-op diagnosis: infected left foot Post-op diagnosis: same Procedure: left BKA Complications: none Anesthesia: ASYA Surgeon: Dre Anderson Estimated blood loss (cc): 250 Specimen: left bka Condition: stable Disposition: PACU Procedure in Detail: History Zenaida Eng is a 71-year-old white female who was seen in the emergency room last night for evaluation of a left heel wound. The patient has an aggressive heel wound that has penetrated down to the calcaneus. The patient has exposed calcaneus and calcaneal osteomyelitis. She has chronic kidney disease requiring dialysis. 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 She has dense calcification of her tibial vessels. As her surgery was asked see the patient because of the amputation option would be the most appropriate treatment. The patient comes for interstitial surgery. Procedure After informed consent was obtained the patient was taken from the holding area to the operating room. General endotracheal anesthesia was established. The left lower extremity was prepped and draped with the left foot placed in an isolation bag. A posterior based flap incision was then made on the left calf after timeout protocol. The incision was made circumferentially down to and through the fascia. The compartments of the calf were then individually divided using Bovie cautery. The vessels were encountered and found to be densely calcific. All muscle tissue appeared viable. The periosteum was raised on the tibia and the tibias and divided. The edges of the tibia were then rasped smooth. The fibula was divided so that the fibula would be shorter in length than the tibia. The wound was then copiously irrigated with antibiotic containing solution. Hemostasis was achieved. The patient's eye was then closed using interrupted 2-0 Vicryl sutures. [place] were used to close the skin edges. There were no intraoperative complications. The patient was taken from the operating room to the recovery room in stable condition.
[2017-02-01] MEDS ORDERED: Ondansetron ODT 4 MG TAB.RAPDIS PO PRN (19:52)
--- NOTE | 2017-02-01 20:20 | Anesthesia Evaluation Post Op ---
Date of Encounter: 02/01/17 Time of Encounter: 19:30 - Vital Signs Vital Signs: Vital Signs/O2 Sat/Glucose, Most Current Temp Pulse Resp BP Pulse Ox 02/01/17 19:57 97.6 F 86 13 152/78 100 02/01/17 19:45 97.9 F 85 16 156/75 99 02/01/17 19:27 97.2 F L 85 16 146/64 100 02/01/17 19:17 97.2 F L 88 16 149/66 100 02/01/17 19:07 88 16 152/71 100 02/01/17 18:57 84 16 143/67 100 02/01/17 18:47 97.6 F 87 14 149/65 100 - Lungs Lungs: Clear Ascult./Percussion - Airway Airway: Non-obstructed - Cardiovascular Regular Rate - Mental Status Mental Status: Alert & Oriented, Answers Appropriately - Pain Pain Scale: 1 - Nausea Vomiting Nausea Vomiting: Not Present - Hydration Hydration: Ice chips - Discharge PostOp Status: Transfer Patient to floor
[2017-02-01] MEDS: Gabapentin 100 MG CAPSULE PO SCH (21:36)
[2017-02-02] MEDS: ceFAZolin 2,000 MG in D5% in Water 100 ML IVPB SCH ×2 (01:02→08:57)
[2017-02-02] MEDS: *HR* HYDROcodone/Acet 5/325 mg TABLET PO PRN ×3 (01:03→23:16)
[2017-02-02] MEDS: *HR* Morphine 2 MG/ML SYRINGE IVP PRN (03:20)
[2017-02-02 05:24] LABS: Calcium 8.2 mg/dL (8.6-10.8); Potassium 4.9 mEq/L (3.5-4.5)
[2017-02-02] MEDS: Gabapentin 100 MG CAPSULE PO SCH ×3 (09:00→22:28)
[2017-02-02] MEDS ORDERED: 0.9 % Sodium Chloride 250 ML IVC PRN (09:09)
[2017-02-02] MEDS ORDERED: 0.9 % Sodium Chloride 1,000 ML PRIME SCH (09:15)
[2017-02-02] MEDS ORDERED: *HR* Morphine 2 MG/ML SYRINGE IVP PRN ×2 (09:18→10:53)
[2017-02-02 10:46] LABS: Hepatitis B Surface Antibody 0.12 mIU/mL; Hepatitis B Surface Antigen Nonreactive (Nonreactive)
[2017-02-02] MEDS ORDERED: Dextrose Gel 15 GM PO PRN ×2 (11:16)
[2017-02-02] MEDS ORDERED: *HR* Dextrose 50 % in Water (Syg) 50 ML SYRINGE IVP PRN (11:16)
[2017-02-02] MEDS ORDERED: D5% in Water 1,000 ML IVC PRN (11:16)
[2017-02-02] MEDS: Insulin LISPRO 300 UNITS/3 ML VIAL SQ SCH ×3 (12:59→22:26)
--- NOTE | 2017-02-02 14:30 | Vascular/[facility] Progress Note ---
Date of Encounter: 02/02/17 Time of Encounter: 08:30 - Assessment and plan (1) Acute osteomyelitis of left calcaneus Current Visit: Yes Status: Acute Deep and profound wound of left foot at the level of the ankle. There is exposed calcaneus. Patient has a nonsalvageable wound. I agree with the assertion that below the knee of dictation would be appropriate for this patient. I suggested that this be performed tomorrow to reduce the risk of any further sepsis. All questions were answered. The procedure and the anesthesia was explained in detail to the patient and her . Also the need for postoperative rehabilitation as an inpatient was discussed in detail as well. All questions were answered. Patient is now postoperative day #1 following a left BKA. Patient is to have dialysis today as she is on a Sunday dialysis schedule. Patient 's hemoglobin is 7.2 g. Primary care service will address the need for potential transfusion. (2) ESRD (end stage renal disease) on dialysis Current Visit: Yes Status: Chronic Patient on dialysis schedule of Sunday. (3) Anemia in chronic kidney disease Current Visit: No Status: Chronic Exacerbation of anemia with periprocedural blood loss. - Subjective Interval history: Patient is postoperative day #1 from a left BKA. Patient complains of pain at the surgical site. Vital Signs, Last 4 Hours Temp Pulse Resp BP 02/02/17 13:20 97.6 F 87 16 103/52 02/02/17 13:05 97.6 F 88 14 108/47 02/02/17 12:50 98.3 F 87 14 102/49 02/02/17 12:30 98.6 F 89 16 115/49 02/02/17 12:15 97.6 F 90 16 116/53 - Physical Examination General: Present: Conversant, No Apparent Distress HEENT: Present: Atraumatic Neuro: Present: Alert and responsive Vascular: Present: Amputation(s) (Amputation dressing is intact.) - VTE Documentation of Mechanical Device: Intermittent pneumatic compression device Results 02/01/17 03:47 02/02/17 04:54 Lab Results, Last 24 hours 02/02/17 04:54 Sodium 136 Potassium 4.9 H D Chloride 103 Carbon Dioxide 21 BUN 20 Creatinine 3.87 H Glucose 95 Calcium 8.2 L Consult Discharge Plan - Plan Referrals: Rudi Avila MD [Primary Care Provider] - 02/07/17 9:45 am (web request 02/01) Dre Anderson MD [Partnered Physician] - (Patient is to follow-up with Dr. Anderson in 6 weeks after discharge.)
--- NOTE | 2017-02-02 16:37 | Internal Med Progress Note ---
Date of Encounter: 02/02/17 Time of Encounter: 16:28 - Assessment and plan (1) Acute osteomyelitis of left calcaneus Current Visit: Yes Status: Acute Assessment and plan: Vascular surgery on board and patient underwent left below knee amputation, postoperative day 1. She is noted to have acute blood loss anemia due to perioperative blood loss and she received 2 units PRBC transfusion. Local wound care per vascular surgery. She does not need further antibiotics. Pain control with when necessary oral Percocet and IV morphine, will decrease dose of IV morphine due to continued lethargy and drowsiness. Physical and occupational therapy evaluation. Plan of care, pain medication management, and post-hospital care d/w family- and daughter at bedside, verbalized understanding and expressed gratitude; (2) PAD (peripheral artery disease) Current Visit: Yes Status: Chronic (3) Essential hypertension Current Visit: Yes Status: Chronic (4) Diabetes mellitus with neuropathy Current Visit: Yes Status: Chronic Assessment and plan: Accu-Chek blood glucose monitoring with sliding scale insulin. Diabetic diet as tolerated. Qualifiers: Diabetes mellitus type: type 2 Diabetes mellitus correction insulin use: with awning hanger helper use Qualified Code(s): E11.40 - Type 2 diabetes mellitus with diabetic neuropathy, unspecified; Z79.4 - lineman (current) use of insulin (5) ESRD (end stage renal disease) on dialysis Current Visit: Yes Status: Chronic Assessment and plan: Nephrology consulted for hemodialysis needs-MWF while inpatient. Received dialysis today. (6) Anemia of chronic disease Current Visit: Yes Status: Chronic (7) CAD (coronary artery disease) Current Visit: Yes Status: Chronic Qualifiers: Coronary Disease-Associated Artery/Lesion type: [place] artery [place] vs. transplanted heart: [place] heart Associated angina: with stable angina Qualified Code(s): I25.118 - Atherosclerotic heart disease of [place] coronary artery with other forms of angina pectoris - Subjective Interval history: Drowsy and fast asleep due to pain medications; returned from dialysis; plan of care d/w patient's family- and daughter at bedside; - Constitutional Vitals: Temp Pulse Resp BP Pulse Ox 98.4 F 94 16 138/71 97 02/02/17 16:07 02/02/17 16:07 02/02/17 16:07 02/02/17 16:07 02/02/17 16:07 General appearance: Present: A&O X 0 (asleep currently), answers questions appropriately - Respiratory Respiratory exam: Present: CTAB (anterolaterally). Absent: accessory muscle use , rales, rhonchi, wheezes - Cardiovascular Cardiovascular exam: Present: RRR, +S1, +S2, systolic murmur. Absent: diastolic murmur, gallop, rubs - GI/Abdominal GI/Abdominal exam: Present: normal bowel sounds, soft, no peritoneal signs. Absent: distended, tenderness - Extremities Exam Extremities exam: Present: warm, radial pulses palpable and symetrical. Absent : calf tenderness, cyanotic, pedal edema Additional comments: LLE- amputation stump in SHE wrap dressing; Internal Medicine: Result - Labs CBC & Chem 7: 02/01/17 03:47 02/02/17 04:54 Labs: BMP 02/02/17 04:54 Sodium 136 Potassium 4.9 H D Chloride 103 Carbon Dioxide 21 BUN 20 Creatinine 3.87 H Glucose 95 Calcium 8.2 L - ABG Interpretation ABG results: PT/INR, D-dimer PT 12.6 Seconds (9.4-12.1) H 01/31/17 19:03 - VTE Documentation of Mechanical Device: Intermittent pneumatic compression device Consult Discharge Plan - Plan Referrals: Rudi Avila MD [Primary Care Provider] - 02/07/17 9:45 am (web request 02/01) Dre Anderson MD [Partnered Physician] - (Patient is to follow-up with Dr. Anderson in 6 weeks after discharge.)
--- NOTE | 2017-02-02 17:51 | Nephrology Progress Note ---
Date of Encounter: 02/02/17 Time of Encounter: 17:49 - Assessment and Plan (1) ESRD (end stage renal disease) on dialysis Current Visit: Yes Status: Chronic Continue HD MWF. Subjective Principal diagnosis: esrd Interval history: Patient seen on dialysis. no new complaint. Objective - Vital Signs Vital signs: Vital Signs Temp Pulse Resp BP Pulse Ox 02/02/17 16:07 98.4 F 94 16 138/71 97 02/02/17 14:10 111/55 02/02/17 13:55 109/53 02/02/17 13:40 97.6 F 85 16 106/50 02/02/17 13:25 103/53 02/02/17 13:20 97.6 F 87 16 103/52 02/02/17 13:10 104/53 02/02/17 13:05 97.6 F 88 14 108/47 02/02/17 12:55 109/54 02/02/17 12:50 98.3 F 87 14 102/49 02/02/17 12:40 122/49 02/02/17 12:30 98.6 F 89 16 115/49 02/02/17 12:25 119/54 02/02/17 12:15 97.6 F 90 16 116/53 02/02/17 12:10 121/55 02/02/17 11:55 128/62 02/02/17 11:40 137/63 02/02/17 11:25 98.4 F 16 141/66 02/02/17 07:59 98.1 F 88 16 138/70 90 02/02/17 05:35 98.9 F 87 15 144/71 91 02/01/17 23:46 97.4 F L 81 14 155/74 99 02/01/17 22:45 97.4 F L 81 14 155/74 99 02/01/17 21:45 97.6 F 81 14 156/76 99 02/01/17 20:45 97 F L 85 14 156/75 02/01/17 20:15 97 F L 83 16 152/79 98 02/01/17 19:57 97.6 F 86 13 152/78 100 02/01/17 19:45 97.9 F 85 16 156/75 99 02/01/17 19:27 97.2 F L 85 16 146/64 100 02/01/17 19:17 97.2 F L 88 16 149/66 100 02/01/17 19:07 88 16 152/71 100 02/01/17 18:57 84 16 143/67 100 02/01/17 18:47 97.6 F 87 14 149/65 100 Intake and Output 02/02/17 02/02/17 02/02/17 07:59 15:59 23:59 Intake Total 100 / 100 1999 Balance 100 / 100 1999 Intake: IV Fluids 100 / 100 Ancef 2,000 MG In 100 / 100 Dextrose 5% 100 ML @ 200 mls/hr IVPB Q8HR KIMMIE Rx#: [id number] Oral 0 / 0 Blood Product 1400 / 1400 Rbcs Leuko Poor As-1 700 / 700 Unit [id number] Rbcs Leuko Poor As-1 700 / 700 Unit [id number] Intake, Rinseback and 600 / 600 Flushes Other: Weight 70.1 kg Blood Glucose* 94 92 88 Hemodialysis Net Fluid 3942 Removed (mL) Patient Weight 02/02/17 23:59 Weight 70.1 kg - General Appearance General appearance: Present: well-developed, well-nourished, obese EENT: Present: ATNC Respiratory: Present: course breath sounds Neurologic: Present: alert and oriented x3 - Lab 02/01/17 03:47 02/02/17 04:54 Most recent lab results Calcium 8.2 mg/dL (8.6-10.8) L 02/02/17 04:54 - VTE Documentation of Mechanical Device: Intermittent pneumatic compression device Consult Discharge Plan - Plan Referrals: Rudi Avila MD [Primary Care Provider] - 02/07/17 9:45 am (web request 02/01) Dre Anderson MD [Partnered Physician] - (Patient is to follow-up with Dr. Anderson in 6 weeks after discharge.)
[2017-02-03 06:46] LABS: Basophils % 0.4 %; Eosinophils # 0.3 K/mcL (0.0-0.6); Hematocrit 31.2 % (35.3-44.9); Hemoglobin 9.7 g/dL (11.5-15.4); Immature Granulocytes % 0.9 % (0-4); Immature Platelets 1.7 % (1.1-6.1); Lymphocytes # 1.1 K/mcL (0.6-4.6); Lymphocytes % 13.2 %; Mean Corpuscular HGB Conc 31.1 g/dL (31.6-35.5); Mean Corpuscular Hemoglobin 29.2 pg (28.0-33.3); Mean Platelet Volume 8.9 fL (9.4-12.4); Monocytes # 0.7 K/mcL (0.0-1.3); Neutrophils # 6.1 K/mcL (1.6-8.9); Platelet Count 305 K/mcL (140-400); Red Blood Count 3.32 M/mcL (3.82-4.97); Red Cell Distribution Width 15.8 % (11.5-14.5); Segmented Neutrophils % 74.5 %
[2017-02-03 07:04] LABS: Calcium 8.5 mg/dL (8.6-10.8); Phosphorous 4.8 mg/dL (2.3-4.7)
[2017-02-03 07:14] LABS: Albumin 1.7 g/dL (3.5-5.0); Potassium 3.7 mEq/L (3.5-4.5)
[2017-02-03] MEDS: Insulin LISPRO 300 UNITS/3 ML VIAL SQ SCH ×4 (08:55→20:32)
[2017-02-03] MEDS: *HR* HYDROcodone/Acet 5/325 mg TABLET PO PRN ×2 (08:57→20:28)
[2017-02-03] MEDS: Gabapentin 100 MG CAPSULE PO SCH ×3 (08:57→20:28)
--- NOTE | 2017-02-03 11:16 | Vascular/[facility] Progress Note ---
Date of Encounter: 02/03/17 Time of Encounter: 11:14 - Assessment and plan (1) Acute osteomyelitis of left calcaneus Current Visit: Yes Status: Acute Postoperative day #2 on left [id number] amputation. Patient is doing well and is hemodynamically stable. There are no signs of sepsis. Inspection of the BKA incision demonstrates appropriate healing at this stage following operation. From a vascular surgery perspective the patient may be transferred to the extended care facility and rehabilitation at any time. The patient will be asked to return to see me in 6 weeks for a wound check and staple removal. Patient is to have daily dressing changes at the rehabilitation center. (2) ESRD (end stage renal disease) on dialysis Current Visit: Yes Status: Chronic Patient on dialysis schedule of Sunday. (3) Anemia in chronic kidney disease Current Visit: No Status: Chronic Exacerbation of anemia with periprocedural blood loss. Patient has responded appropriately to 2 unit transfusion and hemoglobin today is 9.7 g. - Subjective Interval history: Patient is postoperative day #2 from a left BKA. Patient complains of pain at the surgical site. The pain is better controlled from yesterday. The patient also received 2 units of blood on dialysis yesterday and her hemoglobin has appropriately responded. - Physical Examination General: Present: Conversant, No Apparent Distress Neuro: Present: Alert and responsive, No focal deficits noted Vascular: Present: Amputation(s) (Left BKA dressing was removed and the wound was inspected. Staple line is intact. There is no signs of ischemia. There are no signs of cellulitis. The flaps are intact and without signs of cyanosis.), Other (Right calf wound was inspected. This was also redressed with Adaptic and Kerlix roll. This wound is not infected and is relatively superficial.) Skin: Present: No rashes noted on visualized skin - VTE Documentation of Mechanical Device: Intermittent pneumatic compression device Results 02/03/17 06:16 02/03/17 06:16 Lab Results, Last 24 hours 02/03/17 02/03/17 06:16 06:16 WBC 8.2 Hgb 9.7 L D Hct 31.2 L Plt Count 305 Sodium 140 Potassium 3.7 D Chloride 103 Carbon Dioxide 28 BUN 10 D Creatinine 2.91 H Glucose 95 Calcium 8.5 L Consult Discharge Plan - Plan Additional Instructions: Continue physical and occupational therapy at the rehabilitation facility. Daily dressing changes with dry to dry dressings to the left below the knee amputation. This should be with Kerlix roll and Jasen wrap. Once the drainage has stopped then the Kerlix roll may be omitted and she may have daily Jasen wrap applications. Right calf incision should be dressed with Adaptic and Kerlix roll daily. Referrals: Rudi Avila MD [Primary Care Provider] - 02/07/17 9:45 am (web request 02/01) Dre Anderson MD [Partnered Physician] - (Patient is to follow-up with Dr. Anderson in 6 weeks after discharge.)
--- NOTE | 2017-02-03 13:15 | Internal Med Progress Note ---
Date of Encounter: 02/03/17 Time of Encounter: 13:15 - Assessment and plan (1) Acute osteomyelitis of left calcaneus Current Visit: Yes Status: Acute Assessment and plan: Vascular surgery on board and patient underwent left below knee amputation, postoperative day 2. She is noted to have acute blood loss anemia due to perioperative blood loss and hemoglobin improved to 9.7 appropriately after 2 units PRBC transfusion. Local wound care per vascular surgery, discussed with Dr. Malik, stump noted to be healing well and patient is cleared for discharge from surgery standpoint with 6 week follow-up as outpatient. Pain control with when necessary oral Percocet and IV morphine, well controlled today. Physical and occupational therapy evaluation noted, recommend placement in extended care facility. multimedia services manager working on the same. (2) PAD (peripheral artery disease) Current Visit: Yes Status: Chronic (3) Essential hypertension Current Visit: Yes Status: Chronic Assessment and plan: Blood pressure noted to be well controlled. Continue home medications. (4) Diabetes mellitus with neuropathy Current Visit: Yes Status: Chronic Assessment and plan: Accu-Chek blood glucose monitoring with sliding scale insulin. Diabetic diet as tolerated. Qualifiers: Diabetes mellitus type: type 2 Diabetes mellitus long term care administrator insulin use: with [facility] use Qualified Code(s): E11.40 - Type 2 diabetes mellitus with diabetic neuropathy, unspecified; Z79.4 - detention (current) use of insulin (5) ESRD (end stage renal disease) on dialysis Current Visit: Yes Status: Chronic Assessment and plan: Nephrology consulted for hemodialysis needs-MWF while inpatient. (6) Anemia of chronic disease Current Visit: Yes Status: Chronic (7) CAD (coronary artery disease) Current Visit: Yes Status: Chronic Assessment and plan: Continue aspirin, Plavix, statin. Started beta yossi per cardiology. Qualifiers: Coronary Disease-Associated Artery/Lesion type: [place] artery [place] vs. transplanted heart: [place] heart Associated angina: with stable angina Qualified Code(s): I25.118 - Atherosclerotic heart disease of [place] coronary artery with other forms of angina pectoris - Subjective Interval history: Alert today; reports improvement in left BKA pain and feels much better today; awaiting rehab placement; - Constitutional Vitals: Temp Pulse Resp BP Pulse Ox 98.6 F 86 15 153/73 96 02/03/17 11:00 02/03/17 11:00 02/03/17 11:00 02/03/17 11:00 02/03/17 11:00 General appearance: Present: A&O X 3, answers questions appropriately - Respiratory Respiratory exam: Present: CTAB. Absent: accessory muscle use, rales, rhonchi, wheezes - Cardiovascular Cardiovascular exam: Present: RRR, +S1, +S2, systolic murmur. Absent: diastolic murmur, gallop, rubs Internal Medicine: Result - Labs CBC & Chem 7: 02/03/17 06:16 02/03/17 06:16 Labs: Short CBC 02/03/17 Range/Units 06:16 WBC 8.2 (4.3-11.1) K/mcL Hgb 9.7 L D (11.5-15.4) g/dL Hct 31.2 L (35.3-44.9) % Plt Count 305 (140-400) K/mcL Neutrophils # 6.1 (1.6-8.9) K/mcL BMP 02/03/17 06:16 Sodium 140 Potassium 3.7 D Chloride 103 Carbon Dioxide 28 BUN 10 D Creatinine 2.91 H Glucose 95 Calcium 8.5 L Liver Function 02/03/17 Range/Units 06:16 Albumin 1.7 L (3.5-5.0) g/dL - ABG Interpretation ABG results: PT/INR, D-dimer PT 12.6 Seconds (9.4-12.1) H 01/31/17 19:03 - VTE Documentation of Mechanical Device: Intermittent pneumatic compression device Consult Discharge Plan - Plan Additional Instructions: Continue physical and occupational therapy at the rehabilitation facility. Daily dressing changes with dry to dry dressings to the left below the knee amputation. This should be with Kerlix roll and Jasen wrap. Once the drainage has stopped then the Kerlix roll may be omitted and she may have daily Jasen wrap applications. Right calf incision should be dressed with Adaptic and Kerlix roll daily. Referrals: Rudi Avila MD [Primary Care Provider] - 02/07/17 9:45 am (web request 02/01) Dre Anderson MD [Partnered Physician] - (Patient is to follow-up with Dr. Anderson in 6 weeks after discharge.)
[2017-02-03] MEDS: Folic Acid 1 MG TABLET PO SCH (13:41)
[2017-02-04] MEDS: Insulin LISPRO 300 UNITS/3 ML VIAL SQ SCH ×4 (08:07→21:01)
[2017-02-04] MEDS: Folic Acid 1 MG TABLET PO SCH (08:09)
[2017-02-04] MEDS: Gabapentin 100 MG CAPSULE PO SCH ×3 (08:09→21:01)
--- NOTE | 2017-02-04 16:54 | Internal Med Progress Note ---
Date of Encounter: 02/04/17 Time of Encounter: 13:00 - Assessment and plan (1) Acute osteomyelitis of left calcaneus Current Visit: Yes Status: Acute Assessment and plan: Vascular surgery on board and patient underwent left below knee amputation, postoperative day 3. She is noted to have acute blood loss anemia due to perioperative blood loss and hemoglobin improved to 9.7 appropriately after 2 units PRBC transfusion. Local wound care per vascular surgery. Pain control with when necessary oral Percocet and IV morphine, well controlled today. Physical and occupational therapy evaluation noted, recommend placement in extended care facility. guest services agent working on the same. (2) PAD (peripheral artery disease) Current Visit: Yes Status: Chronic (3) Essential hypertension Current Visit: Yes Status: Chronic (4) Diabetes mellitus with neuropathy Current Visit: Yes Status: Chronic Assessment and plan: Accu-Chek blood glucose monitoring with sliding scale insulin. Diabetic diet as tolerated. Qualifiers: Diabetes mellitus type: type 2 Diabetes mellitus [facility] insulin use: with adjunct faculty for medical terminology use Qualified Code(s): E11.40 - Type 2 diabetes mellitus with diabetic neuropathy, unspecified; Z79.4 - terminal makeup operator (current) use of insulin (5) ESRD (end stage renal disease) on dialysis Current Visit: Yes Status: Chronic Assessment and plan: Nephrology consulted for hemodialysis needs-MWF while inpatient. (6) Anemia of chronic disease Current Visit: Yes Status: Chronic (7) CAD (coronary artery disease) Current Visit: Yes Status: Chronic Qualifiers: Coronary Disease-Associated Artery/Lesion type: [place] artery [place] vs. transplanted heart: [place] heart Associated angina: with stable angina Qualified Code(s): I25.118 - Atherosclerotic heart disease of [place] coronary artery with other forms of angina pectoris - Subjective Interval history: No new complaints. Tolerates oral diet. Left leg amputation pain well controlled. No chest pain or shortness of breath. - Constitutional Vitals: Temp Pulse Resp BP Pulse Ox 99.4 F 97 17 132/71 93 02/04/17 16:05 02/04/17 16:05 02/04/17 16:05 02/04/17 16:05 02/04/17 16:05 General appearance: Present: A&O X 3, answers questions appropriately - Respiratory Respiratory exam: Present: CTAB. Absent: accessory muscle use, rales, rhonchi, wheezes - Cardiovascular Cardiovascular exam: Present: RRR, +S1, +S2, systolic murmur. Absent: diastolic murmur, gallop, rubs Internal Medicine: Result - Labs CBC & Chem 7: 02/03/17 06:16 02/03/17 06:16 - ABG Interpretation ABG results: PT/INR, D-dimer PT 12.6 Seconds (9.4-12.1) H 01/31/17 19:03 - VTE Documentation of Mechanical Device: Intermittent pneumatic compression device Consult Discharge Plan - Plan Additional Instructions: Continue physical and occupational therapy at the rehabilitation facility. Daily dressing changes with dry to dry dressings to the left below the knee amputation. This should be with Kerlix roll and Jasen wrap. Once the drainage has stopped then the Kerlix roll may be omitted and she may have daily Jasen wrap applications. Right calf incision should be dressed with Adaptic and Kerlix roll daily. Referrals: Rudi Avila MD [Primary Care Provider] - 02/07/17 9:45 am (web request 02/01) Dre Anderson MD [Partnered Physician] - (Patient is to follow-up with Dr. Anderson in 6 weeks after discharge.)
--- NOTE | 2017-02-04 20:06 | Event Note ---
Date of Encounter: 02/04/17 Time of Encounter: 09:15 Nephrology Chart Review Earlier today, I spoke with the pt and her her . S/p amputation. To help with expediting dialysis and potential discharge after dialysis, I've placed the HD orders for tomorrow morning.
[2017-02-05] MEDS: Acetaminophen 325 MG TABLET PO PRN ×2 (05:05→15:15)
[2017-02-05 05:57] LABS: Basophils % 0.3 %; Eosinophils # 0.2 K/mcL (0.0-0.6); Eosinophils % 2.5 %; Hematocrit 30.8 % (35.3-44.9); Hemoglobin 9.6 g/dL (11.5-15.4); Immature Granulocytes % 0.7 % (0-4); Lymphocytes % 11.1 %; Mean Corpuscular HGB Conc 31.2 g/dL (31.6-35.5); Mean Corpuscular Hemoglobin 29.7 pg (28.0-33.3); Mean Corpuscular Volume 95.4 fL (83.0-100.0); Mean Platelet Volume 9.2 fL (9.4-12.4); Monocytes # 0.6 K/mcL (0.0-1.3); Monocytes % 6.8 %; Neutrophils # 6.9 K/mcL (1.6-8.9); Platelet Count 286 K/mcL (140-400); Red Blood Count 3.23 M/mcL (3.82-4.97); Red Cell Distribution Width 15.2 % (11.5-14.5); Segmented Neutrophils % 78.6 %
[2017-02-05 06:13] LABS: Potassium 4.2 mEq/L (3.5-4.5)
[2017-02-05] MEDS ORDERED: 0.9 % Sodium Chloride 250 ML IVC PRN ×2 (07:00→09:18)
[2017-02-05] MEDS: Insulin LISPRO 300 UNITS/3 ML VIAL SQ SCH ×3 (07:42→16:56)
[2017-02-05] MEDS: Folic Acid 1 MG TABLET PO SCH (07:48)
[2017-02-05] MEDS: Gabapentin 100 MG CAPSULE PO SCH ×2 (07:48→15:12)
[2017-02-05] MEDS ORDERED: 0.9 % Sodium Chloride 1,000 ML PRIME SCH (09:30)
[2017-02-05] MEDS ORDERED: 0.9 % Sodium Chloride 2,000 ML ONE (10:39)
[2017-02-05 15:53] VITALS: BP 101/56
--- NOTE | 2017-02-05 16:19 | Nephrology Progress Note ---
Date of Encounter: 02/05/17 Time of Encounter: 16:17 - Assessment and Plan (1) ESRD (end stage renal disease) on dialysis Current Visit: Yes Status: Chronic Continue HD MWF. Patient seen on HD. No new changes. She anticipates discharge today. Subjective Principal diagnosis: esrd Interval history: Patient seen on dialysis. no new complaint. Objective - Vital Signs Vital signs: Vital Signs Temp Pulse Resp BP Pulse Ox 02/05/17 15:47 97.9 F 97 16 101/56 99 02/05/17 14:30 98.5 F 16 135/49 02/05/17 14:20 119/57 02/05/17 14:05 122/7 02/05/17 13:50 123/60 02/05/17 13:35 123/55 02/05/17 13:20 126/55 02/05/17 13:05 128/59 02/05/17 12:50 134/64 02/05/17 12:35 137/61 02/05/17 12:20 153/67 02/05/17 12:05 156/71 02/05/17 11:50 164/72 02/05/17 11:35 174/72 02/05/17 11:20 173/72 02/05/17 11:05 179/73 02/05/17 10:50 98.5 F 16 155/78 02/05/17 06:43 98.4 F 85 16 156/75 99 02/05/17 04:35 98.8 F 95 15 149/68 95 02/05/17 00:55 97.6 F 92 16 154/69 96 02/04/17 20:57 99.5 F 96 16 150/78 97 Intake and Output 02/05/17 02/05/17 02/05/17 07:59 15:59 23:59 Intake Total 0 / 0 720 / 720 Output Total 3600 / 3600 Balance 0 / 0 -2880 / -2880 Intake: Oral 0 / 0 120 / 120 Intake, Rinseback and 600 / 600 Flushes Output: Total Dialysis (HD) 3600 / 3600 Output Other: Meal Breakfast Percent of Meal Consumed 50% Blood Glucose* 91 147 Hemodialysis Net Fluid 3000 Removed (mL) - General Appearance General appearance: Present: well-developed, well-nourished EENT: Present: ATNC Neck: Present: supple Respiratory: Present: clear Cardiology: Present: no edema (Right LE) Dialysis Vascular Access: Arteriovenous Fistula (Right Upper extremity.) Neurologic: Present: alert and oriented x3 Psychiatric: Present: mood/affect appropriate - Lab 02/05/17 05:35 02/05/17 05:35 Most recent lab results Calcium 9.0 mg/dL (8.6-10.8) 02/05/17 05:35 Phosphorus 4.8 mg/dL (2.3-4.7) H 02/03/17 06:16 - VTE Documentation of Mechanical Device: Intermittent pneumatic compression device Consult Discharge Plan - Plan Additional Instructions: Continue physical and occupational therapy at the rehabilitation facility. Daily dressing changes with dry to dry dressings to the left below the knee amputation. This should be with Kerlix roll and Jasen wrap. Once the drainage has stopped then the Kerlix roll may be omitted and she may have daily Jasen wrap applications. Right calf incision should be dressed with Adaptic and Kerlix roll daily. Referrals: Rudi Avila MD [Primary Care Provider] - 02/07/17 9:45 am (web request 02/01) Dre Anderson MD [Partnered Physician] - (Patient is to follow-up with Dr. Anderson in 6 weeks after discharge.)
--- NOTE | 2017-02-05 16:26 | Discharge Summary ---
Date of Encounter: 02/05/17 Time of Encounter: 16:19 - Discharge Diagnosis (1) Acute osteomyelitis of left calcaneus Priority: Primary Status: Acute (2) PAD (peripheral artery disease) Priority: Secondary Status: Chronic (3) Essential hypertension Priority: Secondary Status: Chronic (4) Diabetes mellitus with neuropathy Priority: Secondary Status: Chronic Qualifiers: Diabetes mellitus type: type 2 Diabetes mellitus adjunct faculty for medical terminology insulin use: with adjunct faculty for medical terminology use Qualified Code(s): E11.40 - Type 2 diabetes mellitus with diabetic neuropathy, unspecified; Z79.4 - jail (current) use of insulin (5) ESRD (end stage renal disease) on dialysis Priority: Secondary Status: Chronic (6) Anemia of chronic disease Priority: Secondary Status: Chronic (7) CAD (coronary artery disease) Priority: Secondary Status: Chronic Qualifiers: Coronary Disease-Associated Artery/Lesion type: [place] artery [place] vs. transplanted heart: [place] heart Associated angina: with stable angina Qualified Code(s): I25.118 - Atherosclerotic heart disease of [place] coronary artery with other forms of angina pectoris - Discharge Medications Prescriptions: Folic Acid 5 mg PO DAILY #30 tablet Home Medications: Insulin LISPRO [HumaLOG] 0 units SQ TIDWM 10/10/15 [History] Aspirin 81 mg PO DAILY #30 tab.chew 08/09/16 [Rx] Acetaminophen [Tylenol] 1,000 mg PO HS PRN 10/09/16 [History] Cinacalcet [Sensipar] 30 mg PO DAILY 10/09/16 [History] Lidocaine/Prilocaine [Emla] 1 appl TP ONCE PRN 10/09/16 [History] Clopidogrel [Plavix] 75 mg PO DAILY tablet 10/16/16 [Rx] Ondansetron ODT [Zofran ODT] 4 mg PO BID PRN 01/31/17 [History] DiphenhydraMINE [Benadryl] 25 mg PO HS PRN #10 02/05/17 [Rx] Folic Acid 5 mg PO DAILY #30 tablet 02/05/17 [Rx] Gabapentin [Neurontin] 100 mg PO TID #30 02/05/17 [Rx] HYDROcodone/Acet 5/325 mg [[place] 5-325 mg] 1 tab PO Q6H PRN #20 02/05/17 [Rx] Allergies/Adverse Reactions: Allergies Penicillins Allergy (Verified 03/22/16 14:43) Hives Date of admission: 02/01/17 00:59 Primary care physician: Rudi Avila MD Consults: 02/01/17 19:52 Consult to Academic Success Coordinator [CONS] Routine Reason for SW Consult: post op amputation 02/02/17 09:15 Consult to Dialysis [CONS] ONCE 02/02/17 11:14 Consult to Occupational Therapy [CONS] Routine Comment: Evaluate, develop and implement POC Reason for Consult: S/P LEFT BKA, EVAL FOR ECF Consult to Physical Therapy [CONS] Routine Comment: Evaluate, develop and implement POC Reason for Consult: S/P LEFT BKA, EVAL FOR ECF 02/05/17 07:00 Consult to Dialysis [CONS] ONCE 02/05/17 09:30 Consult to Dialysis [CONS] ONCE Discharging clinician: Jennifer Huynh Anticipated date of discharge: 02/05/17 - Patient Status Disposition: Transfer SNF Condition: Fair Functional capacity at discharge: uses cane/walker Overall status at discharge: patient is progressing back to baseline - Discharge Instructions Follow Up With: Rudi Avila MD [Primary Care Provider] - 02/07/17 9:45 am (web request 02/01) Dre Anderson MD [Partnered Physician] - (Patient is to follow-up with Dr. Anderson in 6 weeks after discharge.) Additional Instructions: Continue physical and occupational therapy at the rehabilitation facility. Daily dressing changes with dry to dry dressings to the left below the knee amputation. This should be with Kerlix roll and Jasen wrap. Once the drainage has stopped then the Kerlix roll may be omitted and she may have daily Jasen wrap applications. Right calf incision should be dressed with Adaptic and Kerlix roll daily. - Diet and Activity Activity: as per physical therapy Diet: diabetic diet, low fat, low cholesterol, low salt diet, other (renal diet) Hospital course: Ms. 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 She was initially started on broad-spectrum IV antibiotics. Patient was evaluated by vascular surgery and the wound is noted to be too deep and appropriate wound healing was less likely, therefore recommended below-knee amputation to which patient and family were agreeable. Cardiology was consulted for clearance, patient was moderate risk for perioperative complication/mortality. She underwent left below-knee amputation and had an uneventful postoperative recovery. She has been taken off antibiotics after surgery. She did have some blood loss anemia after surgery and hemoglobin responded appropriately to 2 units PRBC transfusion. Nephrology was consulted and patient received regular hemodialysis sessions while in the hospital. Physical therapy evaluation was done and recommended placement in extended care facility. Patient's pain is appropriately controlled currently on oral Percocet. She is otherwise medically stable for discharge. - Time Spent with Patient Total time spent providing and/or coordinating discharge services: Greater than 30 minutes (45 min) - Constitutional Vitals: Temp Pulse Resp BP Pulse Ox 97.9 F 97 16 101/56 99 02/05/17 15:47 02/05/17 15:47 02/05/17 15:47 02/05/17 15:47 02/05/17 15:47 General appearance: Present: A&O X 3, answers questions appropriately - Respiratory Respiratory exam: Present: CTAB. Absent: accessory muscle use, rales, rhonchi, wheezes - Cardiovascular Cardiovascular exam: Present: RRR, +S1, +S2, systolic murmur. Absent: diastolic murmur, gallop, rubs - VTE Documentation of Mechanical Device: Intermittent pneumatic compression device
--- NOTE | 2017-02-05 16:28 | Physician Discharge Referral ---
ExtendedCare Referral Info Transfer To: Replaced By [facility] Provider in Charge: Jennifer Huynh Provider in Charge after Transfer: PCP Institutional Level of Care: Skilled - Diagnosis (1) Acute osteomyelitis of left calcaneus Priority: Primary Status: Acute (2) PAD (peripheral artery disease) Priority: Secondary Status: Chronic (3) Essential hypertension Priority: Secondary Status: Chronic (4) Diabetes mellitus with neuropathy Priority: Secondary Status: Chronic (5) ESRD (end stage renal disease) on dialysis Priority: Secondary Status: Chronic (6) Anemia of chronic disease Priority: Secondary Status: Chronic (7) CAD (coronary artery disease) Priority: Secondary Status: Chronic Expected Duration of Placement: 3 weeks Prognosis: Fair Aware of Diagnosis: Patient, Family Aware of Prognosis: Patient, Family - Transfer Medications Prescriptions: Folic Acid 5 mg PO DAILY #30 tablet Home Medications: Insulin LISPRO [HumaLOG] 0 units SQ TIDWM 10/10/15 [History] Aspirin 81 mg PO DAILY #30 tab.chew 08/09/16 [Rx] Acetaminophen [Tylenol] 1,000 mg PO HS PRN 10/09/16 [History] Cinacalcet [Sensipar] 30 mg PO DAILY 10/09/16 [History] Lidocaine/Prilocaine [Emla] 1 appl TP ONCE PRN 10/09/16 [History] Clopidogrel [Plavix] 75 mg PO DAILY tablet 10/16/16 [Rx] Ondansetron ODT [Zofran ODT] 4 mg PO BID PRN 01/31/17 [History] DiphenhydraMINE [Benadryl] 25 mg PO HS PRN #10 02/05/17 [Rx] Folic Acid 5 mg PO DAILY #30 tablet 02/05/17 [Rx] Gabapentin [Neurontin] 100 mg PO TID #30 02/05/17 [Rx] HYDROcodone/Acet 5/325 mg [[place] 5-325 mg] 1 tab PO Q6H PRN #20 02/05/17 [Rx] Allergies/Adverse Reactions: Allergies Penicillins Allergy (Verified 03/22/16 14:43) Hives - Respiratory Orders Smoking Cessation: Smoking cessation has been advised. For more information, call the [place] Tobacco Quit Line at 7-364-LGUJ-NOW. - Advance Directives Code Status: Full Code - Mobility Orders Ambulate - Rehabiliation Orders Rehab Potential: Fair Rehab Orders: Evaluation for Physical Therapy, Evaluation for Occupational Therapy - Diet Orders No Added Salt (DA), No Concentrated Sweets (diabetic), Renal CERTIFICATION: I certify that the transfer of the above named patient to an Extended Care Facility is necessary for the continuing treatment of the diagnosis listed. The above information is true and accurate reflection of patient's current condition. Confidential - Redisclosure prohibited without a patient's written consent.
== END 2017-02-05 17:31 | DRG 617 ==
LOC: EMEROO 17:02 → 2ANU 17:02
PROVIDERS: ADMIT Internal Medicine; ATTEND Internal Medicine

== ENCOUNTER 2017-06-08 17:06 | Observation (INO) ==
[2017-06-08] MEDS ORDERED: Ondansetron 4 MG/2 ML VIAL IVP ONE (17:39)
[2017-06-08] MEDS ORDERED: 0.9 % Sodium Chloride 1,000 ML IVC ONE (17:39)
[2017-06-08 17:59] LABS: Basophils % 0.4 %; Eosinophils # 0.1 K/mcL (0.0-0.6); Hematocrit 37.5 % (35.3-44.9); Hemoglobin 12.6 g/dL (11.5-15.4); Immature Granulocytes % 0.4 % (0-4); Lymphocytes # 0.5 K/mcL (0.6-4.6); Lymphocytes % 10.1 %; Mean Corpuscular HGB Conc 33.6 g/dL (31.6-35.5); Mean Corpuscular Hemoglobin 32.1 pg (28.0-33.3); Mean Corpuscular Volume 95.4 fL (83.0-100.0); Mean Platelet Volume 9.7 fL (9.4-12.4); Monocytes # 0.4 K/mcL (0.0-1.3); Monocytes % 8.2 %; Neutrophils # 3.7 K/mcL (1.6-8.9); Platelet Count 149 K/mcL (140-400); Red Blood Count 3.93 M/mcL (3.82-4.97); Red Cell Distribution Width 13.7 % (11.5-14.5); Segmented Neutrophils % 77.9 %
--- NOTE | 2017-06-08 18:02 | Emergency Department Note ---
Disposition Clinical Impression: Generalized weakness, ESRD on dialysis Pneumonia Qualifiers: Pneumonia type: due to unspecified organism Laterality: left Lung location: upper lobe of lung Qualified Code(s): J18.1 - Lobar pneumonia, unspecified organism Diarrhea Qualifiers: Diarrhea type: unspecified type Qualified Code(s): R19.7 - Diarrhea, unspecified Nausea and vomiting Qualifiers: Vomiting type: unspecified Vomiting Intractability: non-intractable Qualified Code(s): R11.2 - Nausea with vomiting, unspecified Disposition: Admitted As Inpatient Condition: Undetermined Referrals: Rudi Avila MD [Primary Care Provider] - Forms: ED Satisfaction Letter Time of Disposition: 18:52 Nausea/Vomiting/Diarrhea HPI - General Chief complaint: ED Nausea/Vomiting/Diarrhea Stated complaint: NVD Time Seen by Provider: 06/08/17 17:27 Source: patient Mode of arrival: wheelchair Limitations: no limitations Nursing Notes Reviewed: Yes Vital Signs Reviewed: Yes - History of Present Illness HPI Narrative: 71-year-old female with history of dialysis, arrives [facility] emergency department with generalized weakness, nausea, vomiting, diarrhea that has been ongoing over the past few weeks. The patient received dialysis roughly 2 days ago and was too weak to go today. The patient has been unable to tolerate all of her home medications due to nausea and vomiting. The patient has been experiencing incontinent diarrhea. The patient has been experiencing a large amount of diarrhea. The patient recently received a BKA of the left lower extremity associated with an ulceration that was chronic. The patient had been on antibiotics for unknown period of time according to the patient's family force this associated BKA. The patient has been experiencing improve healing of the left BKA stump. In addition the patient's family states that the patient was noted to have a fracture of the right ankle and has been in the boot for the past few weeks. The patient denies any other complaints at this time. Pt Subjective Complaint: nausea, vomiting, diarrhea Onset (ago): unknown Description of emesis: food contents Description of Diarrhea: water Associated Abdominal Pain: No Improves with: nothing Worsens with: nonthing Context: recent antibiotic use Associated symptoms: Reports: loss of appetite, malaise, nausea/vomiting, weakness - Related Data Home Medications Medication Instructions Recorded Confirmed Insulin LISPRO [HumaLOG] 0 units SQ TIDWM 10/10/15 03/30/17 Acetaminophen [Tylenol] 1,000 mg PO HS PRN 10/09/16 03/30/17 Cinacalcet [Sensipar] 30 mg PO DAILY 10/09/16 03/30/17 Lidocaine/Prilocaine [Emla] 1 appl TP ONCE PRN 10/09/16 03/30/17 Ondansetron ODT [Zofran ODT] 4 mg PO BID PRN 01/31/17 03/30/17 Atorvastatin [Lipitor] 40 mg PO HS 03/30/17 03/30/17 Citalopram [CeleXA] 20 mg PO DAILY 03/30/17 03/30/17 Furosemide [Lasix] 40 mg PO DAILY 03/30/17 03/30/17 Metoprolol [Lopressor] 25 mg PO BID 03/30/17 03/30/17 Previous Rx's Medication Instructions Recorded Clopidogrel [Plavix] 75 mg PO DAILY tablet 10/16/16 DiphenhydraMINE [Benadryl] 25 mg PO HS PRN #10 02/05/17 Gabapentin [Neurontin] 100 mg PO TID #30 02/05/17 HYDROcodone/Acet 5/325 mg [[place] 1 tab PO Q6H PRN #20 03/30/17 5-325 mg] Ondansetron HCl [Zofran] 4 mg PO TID #15 tablet 05/13/17 Sulfamethoxazole/Trimeth DS 1 each PO BID #20 tablet 05/13/17 [Bactrim DS] Tramadol HCl [Ultram] 50 mg PO TID PRN #9 tab 05/13/17 Allergies Allergy/AdvReac Type Severity Reaction Status Date / Time Penicillins Allergy Hives Verified 06/08/17 17:20 All systems ED: reviewed and negative except as stated. Constitutional: Reports: weakness, weight change. Denies: fever, chills Cardiovascular: Denies: chest pain, dyspnea on exertion Respiratory: Denies: cough, dyspnea, wheezes Gastrointestinal: Reports: nausea, vomiting, diarrhea. Denies: abdominal pain, constipation, hematemesis, melena, hematochezia Genitourinary: Denies: urgency, dysuria, frequency Musculoskeletal: Denies: myalgia Neurological: Reports: weakness. Denies: numbness, paresthesias, confusion Past Medical History - Past Medical History Attestation: Yes The following information was validated with the patient. Source: patient, old records reviewed, obtained from family Medical history: Reports: diabetes, dialysis, hypertension, renal disease, other Surgical history: Reports: carotid endarterectomy, hysterectomy, orthopedic, other, thyroidectomy, other Psychiatric history: Reports: anxiety, depression PATHOLOGY LABORATORY AIDE history: Reports: no PATHOLOGY LABORATORY AIDE history - Social History Smoking Status: Never smoker Smokeless Tobacco Status: No Alcohol use: Reports: none Drug use: Reports: none Physical Exam - General Limitations: no limitations General appearance: alert, in no apparent distress - Head Head exam: atraumatic, normocephalic, normal inspection - Eye Eye exam: Present: normal appearance, PERRL, EOMI - ENT ENT exam: normal exam, normal oropharynx, mucous membranes moist - Neck Neck exam: Present: normal inspection, full ROM, trachea midline - Chest Chest inspection: Present: normal inspection, symmetric chest wall rise - Respiratory Respiratory exam: Present: normal lung sounds bilaterally - Cardiovascular Cardiovascular exam: Present: regular rate, normal rhythm, normal heart sounds - Abdominal Exam Abdominal exam: Present: soft, Non-Tender. Absent: distention, guarding, rebound - Extremities Exam Extremities exam: Present: normal inspection, full ROM. Absent: tenderness, pedal edema - Neurological Exam Neurological exam: Present: alert, oriented X3 - Skin Skin exam: Present: warm, dry, intact, normal color Course - Reevaluation(s) Reevaluation #1: Noted to have left groundglass appearance opacity in the perihilar region with atypical consideration. Begin the patient on Rocephin and Flagyl. Time: 18:11 Vital Signs Temperature 98.3 F 06/08/17 17:20 Pulse Rate 80 06/08/17 17:20 Respiratory Rate 20 06/08/17 17:20 Blood Pressure 198/82 06/08/17 17:20 O2 Sat by Pulse Oximetry 96 06/08/17 17:20 Temperature 98.3 F 06/08/17 17:20 Pulse Rate 80 06/08/17 17:20 Respiratory Rate 20 06/08/17 17:20 Blood Pressure 198/82 06/08/17 17:20 O2 Sat by Pulse Oximetry 96 06/08/17 17:20 Oxygen Delivery Oxygen Delivery Room Air Nausea/Vomiting/Diarrhea - [facility] Narrative Medical decision making narrative: He should noted to have a left groundglass appearance associated with atypical infection in the left perihilar region. The patient was started on Flagyl and Rocephin with concern for possible aspirated of pneumonia given the patient's vomiting. The patient was given IV fluids. She was also given aspirin due to an elevated troponin. The patient denies any chest pain. The patient will be admitted to the hospitalist for further care and workup, accepted by Unruly Rivas. - Lab Data Lab results reviewed: Yes I reviewed the patient's lab results. Result diagrams: 06/08/17 17:50 06/08/17 17:50 Lab Results 06/08/17 06/08/17 06/08/17 Range/Units 17:50 17:50 17:50 WBC 4.7 (4.3-11.1) K/mcL RBC 3.93 (3.82-4.97) M/mcL Hgb 12.6 (11.5-15.4) g/dL Hct 37.5 (35.3-44.9) % MCV 95.4 (83.0-100.0) fL MCH 32.1 (28.0-33.3) pg MCHC 33.6 (31.6-35.5) g/dL RDW 13.7 (11.5-14.5) % Plt Count 149 (140-400) K/mcL MPV 9.7 (9.4-12.4) fL Immature Gran % 0.4 (0-4) % Seg Neutrophils % 77.9 % Lymphocytes % 10.1 % Monocytes % 8.2 % Eosinophils % 3.0 % Basophils % 0.4 % Neutrophils # 3.7 (1.6-8.9) K/mcL Lymphocytes # 0.5 L (0.6-4.6) K/mcL Monocytes # 0.4 (0.0-1.3) K/mcL Eosinophils # 0.1 (0.0-0.6) K/mcL Basophils # 0.0 (0.0-0.2) K/mcL Sodium 136 (136-145) mEq/L Potassium 4.1 (3.5-4.5) mEq/L Chloride 98 (98-109) mEq/L Carbon Dioxide 27 (19-29) mEq/L BUN 22 H (7-20) mg/dL Creatinine 6.03 H (0.57-1.11) mg/dL Est GFR ( Amer) 8 L (> 60) Est GFR (Non-Af Amer) 7 L (> 60) BUN/Creatinine Ratio 4 L (6-26) Glucose 109 H (70-99) mg/dL Calculated Osmolality 286 (280-300) Calcium 10.0 (8.6-10.8) mg/dL Total Bilirubin 1.0 (0.2-1.2) mg/dL AST 15 (5-34) Units/L ALT < 6 (0-55) Units/L Alkaline Phosphatase 79 (38-126) Units/L Troponin I 0.28 H* (0-0.03) ng/mL Serum Total Protein 8.1 (6.0-8.3) g/dL Albumin 3.8 (3.5-5.0) g/dL Globulin 4.3 H (2.4-3.5) g/dL Albumin/Globulin Ratio 0.9 L (1.1-2.2) Urine Color (Yellow) Urine Clarity (Clear) Urine pH (5.0-8.0) pH Units Ur Specific [place] (1.010-1.025) Urine Protein (Neg-Trace) mg/dL Urine Glucose (UA) (Normal) mg/dL Urine Ketones (Negative) mg/dL Urine Blood (Negative) Urine Nitrite (Negative) Urine Bilirubin (Negative) Urine Urobilinogen (Normal) mg/dL Ur Leukocyte Esterase (Negative) Urine Microscopic RBC (0-3) per hpf Urine Microscopic WBC (0-3) per hpf Ur Squamous Epith Cells (None-Few) per lpf Urine Bacteria (None-Few) per hpf Hyaline Casts (None-Few) per lpf Urine Yeast Ur Culture Indicated? (NO) 06/08/17 Range/Units 18:05 WBC (4.3-11.1) K/mcL RBC (3.82-4.97) M/mcL Hgb (11.5-15.4) g/dL Hct (35.3-44.9) % MCV (83.0-100.0) fL MCH (28.0-33.3) pg MCHC (31.6-35.5) g/dL RDW (11.5-14.5) % Plt Count (140-400) K/mcL MPV (9.4-12.4) fL Immature Gran % (0-4) % Seg Neutrophils % % Lymphocytes % % Monocytes % % Eosinophils % % Basophils % % Neutrophils # (1.6-8.9) K/mcL Lymphocytes # (0.6-4.6) K/mcL Monocytes # (0.0-1.3) K/mcL Eosinophils # (0.0-0.6) K/mcL Basophils # (0.0-0.2) K/mcL Sodium (136-145) mEq/L Potassium (3.5-4.5) mEq/L Chloride (98-109) mEq/L Carbon Dioxide (19-29) mEq/L BUN (7-20) mg/dL Creatinine (0.57-1.11) mg/dL Est GFR ( Amer) (> 60) Est GFR (Non-Af Amer) (> 60) BUN/Creatinine Ratio (6-26) Glucose (70-99) mg/dL Calculated Osmolality (280-300) Calcium (8.6-10.8) mg/dL Total Bilirubin (0.2-1.2) mg/dL AST (5-34) Units/L ALT (0-55) Units/L Alkaline Phosphatase (38-126) Units/L Troponin I (0-0.03) ng/mL Serum Total Protein (6.0-8.3) g/dL Albumin (3.5-5.0) g/dL Globulin (2.4-3.5) g/dL Albumin/Globulin Ratio (1.1-2.2) Urine Color Yellow (Yellow) Urine Clarity Clear (Clear) Urine pH 8.0 (5.0-8.0) pH Units Ur Specific [place] 1.012 (1.010-1.025) Urine Protein >=1000 H (Neg-Trace) mg/dL Urine Glucose (UA) 250 H (Normal) mg/dL Urine Ketones Negative (Negative) mg/dL Urine Blood Moderate H (Negative) Urine Nitrite Negative (Negative) Urine Bilirubin Negative (Negative) Urine Urobilinogen Normal (Normal) mg/dL Ur Leukocyte Esterase Trace H (Negative) Urine Microscopic RBC 15-30 H (0-3) per hpf Urine Microscopic WBC 30-50 H (0-3) per hpf Ur Squamous Epith Cells Many H (None-Few) per lpf Urine Bacteria None Seen (None-Few) per hpf Hyaline Casts None Seen (None-Few) per lpf Urine Yeast Test Not Performed Ur Culture Indicated? YES A (NO) - Radiology Data Radiology results reviewed: Yes I reviewed the patient's radiology results. - EKG Data EKG attestation: Yes I reviewed and interpreted this EKG. EKG results narrative: Heart rate 83 bpm. Appear 148 ms. QTc 449 ms. Normal axis. Normal sinus rhythm. No ST elevation or ST depression noted. Attestation Statement - Attestation Attestation: I, Foreign Boyd DO, examined this patient [id number] and my medical decision-making was reviewed with Dr. Unruly Mackey, Resident Physician. I agree with the documented findings, disposition and treatment plan as described except to the extent set forth below. Please see my progress notes for details. 71-year-old female presents with generalized malaise weakness and diarrhea. Patient has had symptoms on and off for the last several days. She presented here today because the family has been trying to coming to emergency room. She is currently ESRD with known dialysis. She was Sunday for treatment. She did not go to treatment today. Her last 24 hours tenderness a significant decline in her mobility as well as her energy. They are concerned and brought her into the emergency room for evaluation. Physical exam shows a full appearing female in no specific complaints of pain or other symptoms. Lungs are clear heart is regular abdomen is soft mild tenderness noted no specific guarding or rigidity. Patient does have a below the knee amputation left lower extremity but otherwise no other acute pathology. Influenza swab laboratory workup including electrolytes chest x-ray EKG at this time. Disposition admission to hospital for definitive management. Patient is otherwise stable at this point. Vital signs reviewed. See detailed documentation of physical exam, medical intervention, medical decision-making and disposition and the resident physician's note
[2017-06-08] MEDS ORDERED: Clindamycin 900 MG/50 ML 900 MG/50 ML IV.SOLN IVPB ONE (18:09)
[2017-06-08] MEDS ORDERED: MetroNIDAZOLE 500 MG/100 ML 500 MG/100 ML BAG IVPB ONE (18:10)
[2017-06-08 18:13] LABS: Albumin 3.8 g/dL (3.5-5.0); Albumin/Globulin Ratio 0.9 (1.1-2.2); Alkaline Phosphatase 79 Units/L (38-126); Aspartate Amino Transferase 15 Units/L (5-34); BUN/Creatinine Ratio 4 (6-26); Blood Urea Nitrogen 22 mg/dL (7-20); Carbon Dioxide 27 mEq/L (19-29); Chloride 98 mEq/L (98-109); Globulin 4.3 g/dL (2.4-3.5); Glucose 109 mg/dL (70-99); Osmolality,Calculated 286 (280-300); Potassium 4.1 mEq/L (3.5-4.5); Sodium 136 mEq/L (136-145); Total Protein 8.1 g/dL (6.0-8.3); eGFR For African Americans 8 (> 60); eGFR For Non-African Americans 7 (> 60)
[2017-06-08 18:18] LABS: Alanine Aminotransferase < 6 Units/L (0-55)
[2017-06-08 18:22] LABS: Bilirubin,Urine Negative (Negative); Blood,Urine Moderate (Negative); Clarity,Urine Clear (Clear); Color,Urine Yellow (Yellow); Glucose,Urine (UA) 250 mg/dL (Normal); Ketones,Urine Negative (Negative); Leukocyte Esterase,Urine Trace (Negative); Nitrite,Urine Negative (Negative); Protein,Urine >=1000 mg/dL (Neg-Trace); Specific Gravity,Urine 1.012 (1.010-1.025); Urobilinogen,Urine Normal (Normal)
[2017-06-08] MEDS ORDERED: Aspirin 325 MG TABLET PO ONE (18:22)
[2017-06-08 18:25] LABS: Bacteria,Urine None Seen per hpf (None-Few); Hyaline Casts,Urine None Seen per lpf (None-Few); RBC,Urine 15-30 per hpf (0-3); Squamous Epithelial Cell,Urine Many per lpf (None-Few); WBC,Urine 30-50 per hpf (0-3)
[2017-06-08] MEDS ORDERED: Naloxone 0.4 MG/ML INJ IVP PRN (22:34)
[2017-06-08] MEDS ORDERED: Acetaminophen 325 MG TABLET PO PRN (22:34)
[2017-06-08] MEDS ORDERED: Ondansetron 4 MG/2 ML VIAL IVP PRN (22:34)
[2017-06-08] MEDS ORDERED: D5% in Water 1,000 ML IVC PRN (22:39)
[2017-06-08] MEDS ORDERED: Dextrose Gel 15 GM PO PRN ×2 (22:39)
[2017-06-08] MEDS ORDERED: *HR* Dextrose 50 % in Water (Syg) 50 ML SYRINGE IVP PRN (22:39)
[2017-06-08] MEDS ORDERED: traMADol 50 MG TABLET PO PRN (22:42)
[2017-06-08] MEDS ORDERED: *HR* HYDROcodone/Acet 5/325 mg TABLET PO PRN (22:42)
[2017-06-08] MEDS ORDERED: 0.9 % Sodium Chloride 1,000 ML IVC SCH (22:45)
[2017-06-09] MEDS: MetroNIDAZOLE 500 MG/100 ML 500 MG/100 ML BAG IVPB SCH ×4 (00:21→23:54)
[2017-06-09 00:47] LABS: Basophils % 0.5 %; Eosinophils # 0.1 K/mcL (0.0-0.6); Eosinophils % 2.6 %; Hematocrit 30.2 % (35.3-44.9); Immature Granulocytes % 0.7 % (0-4); Lymphocytes # 0.4 K/mcL (0.6-4.6); Lymphocytes % 8.8 %; Mean Corpuscular HGB Conc 33.8 g/dL (31.6-35.5); Mean Corpuscular Hemoglobin 31.8 pg (28.0-33.3); Mean Corpuscular Volume 94.1 fL (83.0-100.0); Mean Platelet Volume 10.4 fL (9.4-12.4); Monocytes # 0.3 K/mcL (0.0-1.3); Monocytes % 8.1 %; Neutrophils # 3.4 K/mcL (1.6-8.9); Platelet Count 139 K/mcL (140-400); Red Blood Count 3.21 M/mcL (3.82-4.97); Red Cell Distribution Width 13.7 % (11.5-14.5); Segmented Neutrophils % 79.3 %
[2017-06-09 00:49] LABS: Hemoglobin 10.2 g/dL (11.5-15.4)
[2017-06-09 01:00] LABS: Magnesium 1.5 mg/dL (1.6-2.6); Potassium 3.8 mEq/L (3.5-4.5)
[2017-06-09] MEDS: *HR* Heparin 5,000 UNIT/ML VIAL SQ SCH ×2 (04:49→17:56)
--- NOTE | 2017-06-09 05:26 | Internal Med History&Physical ---
Date of Encounter: 06/08/17 Time of Encounter: 22:00 Assessment and Plan (1) Diabetes mellitus Current visit: No Status: Chronic Please placed on sliding scale Qualifiers: Diabetes mellitus type: type 2 Diabetes mellitus complication status: with unspecified complications Diabetes mellitus terminal operations manager insulin use: with terminal operations manager use Qualified Code(s): E11.8 - Type 2 diabetes mellitus with unspecified complications; Z79.4 - skilled nursing (current) use of insulin (2) DVT prophylaxis Current visit: No Status: Acute Heparin subcutaneously (3) Elevated troponin Current visit: No Status: Acute Patient denies chest pain. Review of her old charts, she has chronically elevated troponin. - Continue cardiac monitoring. - Trend 3 sets of troponin (4) Diarrhea Current visit: Yes Status: Acute Etiology is undetermined. Check C. difficile to rule out C. difficile colitis. Qualifiers: Diarrhea type: unspecified type Qualified Code(s): R19.7 - Diarrhea, unspecified (5) ESRD (end stage renal disease) on dialysis Current visit: Yes Status: Chronic Nephrology consult. Continue dialysis (6) Pneumonia Current visit: Yes Status: Acute Chest x-ray shows pneumonia. Suspect aspiration as patient has nausea vomiting. Patient was placed on Rocephin and Flagyl. Qualifiers: Pneumonia type: aspiration pneumonia Laterality: left Lung location: upper lobe of lung Qualified Code(s): J69.0 - Pneumonitis due to inhalation of food and vomit (7) Urinary tract infection Current visit: No Status: Acute Patient is on Rocephin. Follow-up urine culture Qualifiers: Urinary tract infection type: acute cystitis Hematuria presence: with hematuria Qualified Code(s): N30.01 - Acute cystitis with hematuria (8) CAD (coronary artery disease) Current visit: No Status: Chronic No chest pain. Continue home medications Qualifiers: Coronary Disease-Associated Artery/Lesion type: [place] artery [place] vs. transplanted heart: [place] heart Associated angina: with stable angina Qualified Code(s): I25.118 - Atherosclerotic heart disease of [place] coronary artery with other forms of angina pectoris (9) Essential hypertension Current visit: No Status: Chronic Continue home medications. Hydralazine IV when necessary. (10) Nausea and vomiting Current visit: Yes Status: Acute Etiology is undetermined. Probably uremic gastritis. - Place patient on symptomatic treatment and low rate IV fluid to avoid dehydration. Qualifiers: Vomiting type: unspecified Vomiting Intractability: non-intractable Qualified Code(s): R11.2 - Nausea with vomiting, unspecified Internal Medicine - H&P: HPI Chief complaint: Nausea, vomiting, diarrhea Admitted From: Home Plans for Post Hospital Care: Home History of present illness: Ms. Eng is a 71 year old female with history of diabetes and hypertension, PVD, S/P left BKA, end-stage renal disease on hemodialysis, presented to ER for general weakness, nausea, vomiting, and diarrhea for 2-3 weeks. Patient denies abdominal pain. Patient said that the nausea and vomiting make her cannot eat. Patient has a dry cough, with occasional fever to 100. In emergency room, chest x-ray shows likely pneumonia. Patient was admitted for further management. Past Med Surg Social Fam HX - Past Medical History Medical history: diabetes, dialysis, hypertension, renal disease, other Psychiatric history: anxiety, depression - Past Surgical History Surgical History: carotid endarterectomy, hysterectomy, orthopedic, other, thyroidectomy, other - Social History Smoking Status: Never smoker Smokeless Tobacco Status: No Alcohol use: none Drug use: none - Family History Mother Adopted: No Family Member Ethnicity: Non- Living Status: Hx Family Cardiac Disorders: No Hx Family Respiratory Disorders: Yes Hx Family Cancer: Yes Hx Family GI Disorders: No Hx Family Endocrine Disorder: No Hx Family Neuromuscular Disorders: No Hx Family Neurologic Disorders: No Hx Family HEENT Disorders: No Hx Family Autoimmune Disorders: No Father Adopted: No Family Member Ethnicity: Non- Living Status: Hx Family Cardiac Disorders: Yes Hx Family Respiratory Disorders: Yes Hx Family Cancer: No Hx Family GI Disorders: No Hx Family Endocrine Disorder: Yes Hx Family Neuromuscular Disorders: No Hx Family Neurologic Disorders: Yes Hx Family HEENT Disorders: No Hx Family Autoimmune Disorders: No Internal Medicine - H&P: Meds Acetaminophen [Tylenol] 1,000 mg PO HS PRN 10/09/16 [History] Lidocaine/Prilocaine [Emla] 1 appl TP ONCE PRN 10/09/16 [History] Clopidogrel [Plavix] 75 mg PO DAILY tablet 10/16/16 [Rx] DiphenhydraMINE [Benadryl] 25 mg PO HS PRN #10 02/05/17 [Rx] Gabapentin [Neurontin] 100 mg PO TID #30 02/05/17 [Rx] Atorvastatin [Lipitor] 40 mg PO HS 03/30/17 [History] Citalopram [CeleXA] 20 mg PO DAILY 03/30/17 [History] HYDROcodone/Acet 5/325 mg [[place] 5-325 mg] 1 tab PO Q6H PRN #20 03/30/17 [Rx] Metoprolol [Lopressor] 25 mg PO BID 03/30/17 [History] Ondansetron HCl [Zofran] 4 mg PO TID #15 tablet 05/13/17 [Rx] Tramadol HCl [Ultram] 50 mg PO TID PRN #9 tab 05/13/17 [Rx] Enoxaparin [Lovenox] 30 mg SQ DAILY 06/08/17 [History] 3 Allergy/AdvReac Type Severity Reaction Status Date / Time Penicillins Allergy Hives Verified 06/08/17 17:20 All Systems PM: A 10-system review of systems was performed and is negative for pertinent findings except as documented above in the HPI. - Constitutional Vitals: Temp Pulse Resp BP Pulse Ox 99.9 F H 88 16 184/74 90 06/09/17 04:32 06/09/17 04:32 06/09/17 04:32 06/09/17 05:16 06/09/17 04:32 General appearance: Present: A&O X 3, no acute distress, answers questions appropriately - Head Head exam: Present: atraumatic, normocephalic - Eye Eye exam: Present: PERRL, conjuntiva pink, sclera anicteric Pupils: Present: PERRL - Neck Neck exam general surgery: Present: supple, trachea midline. Absent: lymphadenopathy - Respiratory Respiratory exam: Present: CTAB. Absent: accessory muscle use, rales, rhonchi, wheezes - Cardiovascular Cardiovascular exam: Present: RRR, +S1, +S2. Absent: diastolic murmur, gallop, rubs, systolic murmur - GI/Abdominal GI/Abdominal exam: Present: normal bowel sounds, soft, no peritoneal signs. Absent: distended, tenderness - Extremities Exam Extremities exam: Present: warm, radial pulses palpable and symmetrical. Absent : calf tenderness, cyanotic, pedal edema Additional comments: Left lower extremity s/p BKA - Neurological Exam Neurological exam: Present: CN II-XII intact, oriented X3, no focal deficits. Absent: pronater drift, facial droop, speech deficit - Skin Skin exam: Present: dry, intact Internal Med - H&P Results - Labs CBC & Chem 7: 06/09/17 00:19 06/09/17 00:19 Labs: Short CBC 06/09/17 Range/Units 00:19 WBC 4.2 L (4.3-11.1) K/mcL Hgb 10.2 L D (11.5-15.4) g/dL Hct 30.2 L (35.3-44.9) % Plt Count 139 L (140-400) K/mcL Neutrophils # 3.4 (1.6-8.9) K/mcL BMP 06/09/17 00:19 Sodium 136 Potassium 3.8 Chloride 102 Carbon Dioxide 25 BUN 23 H Creatinine 5.82 H Glucose 105 H Calcium 9.0 Cardiac Enzymes 06/09/17 Range/Units 00:19 Troponin I 0.22 H* (0-0.03) ng/mL
[2017-06-09] MEDS ORDERED: 0.9 % Sodium Chloride 250 ML IVC PRN (07:31)
[2017-06-09] MEDS: Insulin LISPRO 300 UNITS/3 ML VIAL SQ SCH ×4 (08:12→21:24)
[2017-06-09] MEDS: Gabapentin 100 MG CAPSULE PO SCH ×3 (08:18→21:24)
--- NOTE | 2017-06-09 09:44 | Nephrology Consult Note ---
Date of Encounter: 06/09/17 Time of Encounter: 08:30 Assessment and Plan (1) ESRD (end stage renal disease) on dialysis Current Visit: Yes Status: Chronic Having missed HD yesterday, I rec HD today (Sunday). Will mimic her outpt HD orders for 3hr 15 min but with a 3K bath today. Goal UF about 0.5kg or to Dry Weight. If the listed weight is accurate for today she is under her weight. I suspect she may experiencing failure to thrive. Counseled her to focus on dialysis compliance and renal diet with goal of a serum albumin for 4. No family was present but I mentioned that I'd here this weekend as I suspect her family will arrive later. Though I may not be free to meet in person and return to see her a second time this afternoon, I plan to round tomorrow AM and am available by phone. PNA suspect and on Abx. Agree. Appreciate hospitalists. (2) Generalized weakness Current Visit: Yes Status: Acute See above (3) Decubitus ulcer of left leg, stage 3 Current Visit: No Status: Acute Spoke with the floor RN. The left stump wound: agree with wound care consult. (4) Anemia in chronic kidney disease Current Visit: No Status: Chronic Goal Hgb is 10-11. And she is above the goal, but if she drifts lower then will add an TARIK medication while hospitalized. Qualifiers: Chronic kidney disease stage: on chronic dialysis Qualified Code(s): N18.6 - End stage renal disease; D63.1 - Anemia in chronic kidney disease; D63.1 - Anemia in chronic kidney disease; Z99.2 - Dependence on renal dialysis; Z99.2 - Dependence on renal dialysis; Z99.2 - Dependence on renal dialysis; Z99.2 - Dependence on renal dialysis (5) Calciphylaxis Current Visit: No Status: Resolved Hx of Calciphylaxis, which was treated earlier this year with sodium thiosulfate and now resolved. (6) Diabetes mellitus with neuropathy Current Visit: No Status: Chronic As per primary. Qualifiers: Diabetes mellitus type: type 2 Diabetes mellitus chcf insulin use: with chcf use Qualified Code(s): E11.40 - Type 2 diabetes mellitus with diabetic neuropathy, unspecified; Z79.4 - half-way (current) use of insulin History of Present Illness - Reason for Consult Consult date: 06/09/17 end stage renal disease Requesting physician: Brina Hurst - Chief Complaint ESRD, missed HD - History of Present Illness Zenaida Eng is a very pleasant 71 y/o WF with a pmh of ESRD on HD MWF, prior calciphylaxis, left LE wounds s/p BKA, HTN, SHPT, anemia of CKD, long standing DM, and et al who presented with several weeks onset of cough, generalized decline and missed dialysis yesterday (Sunday). She reported that her cough started a number of weeks ago (she could not say how long) but has noticed low grade fevers over the last few days. Does not know of any palliative /provocative factors. She has not received Abx recently. She was admitted last night and started on Abx. She voiced that she still makes urine but did not affirm typical UTI symptoms. No family was present in the room but her floor RN was present. She last completed HD on Sunday she said. She typically dialyzes at [facility] 3hr 15 min, 3000 heparin bolus with a Dry Weight of 71kg. She was placed on IVF last night. Past Med Surg Social Fam HX - Past Medical History Medical history: diabetes, dialysis, hypertension, renal disease, other Psychiatric history: anxiety, depression - Past Surgical History Surgical History: carotid endarterectomy, hysterectomy, orthopedic, other, thyroidectomy, other - Social History Smoking Status: Never smoker Smokeless Tobacco Status: No Alcohol use: none Drug use: none - Family History Mother Adopted: No Family Member Ethnicity: Non- Living Status: Hx Family Cardiac Disorders: No Hx Family Respiratory Disorders: Yes Hx Family Cancer: Yes Hx Family GI Disorders: No Hx Family Endocrine Disorder: No Hx Family Neuromuscular Disorders: No Hx Family Neurologic Disorders: No Hx Family HEENT Disorders: No Hx Family Autoimmune Disorders: No Father Adopted: No Family Member Ethnicity: Non- Living Status: Hx Family Cardiac Disorders: Yes Hx Family Respiratory Disorders: Yes Hx Family Cancer: No Hx Family GI Disorders: No Hx Family Endocrine Disorder: Yes Hx Family Neuromuscular Disorders: No Hx Family Neurologic Disorders: Yes Hx Family HEENT Disorders: No Hx Family Autoimmune Disorders: No Medications and Allergies Acetaminophen [Tylenol] 1,000 mg PO HS PRN 10/09/16 [History] Lidocaine/Prilocaine [Emla] 1 appl TP ONCE PRN 10/09/16 [History] Clopidogrel [Plavix] 75 mg PO DAILY tablet 10/16/16 [Rx] DiphenhydraMINE [Benadryl] 25 mg PO HS PRN #10 02/05/17 [Rx] Gabapentin [Neurontin] 100 mg PO TID #30 02/05/17 [Rx] Atorvastatin [Lipitor] 40 mg PO HS 03/30/17 [History] Citalopram [CeleXA] 20 mg PO DAILY 03/30/17 [History] HYDROcodone/Acet 5/325 mg [[place] 5-325 mg] 1 tab PO Q6H PRN #20 03/30/17 [Rx] Metoprolol [Lopressor] 25 mg PO BID 03/30/17 [History] Ondansetron HCl [Zofran] 4 mg PO TID #15 tablet 05/13/17 [Rx] Tramadol HCl [Ultram] 50 mg PO TID PRN #9 tab 05/13/17 [Rx] Enoxaparin [Lovenox] 30 mg SQ DAILY 06/08/17 [History] 3 Allergy/AdvReac Type Severity Reaction Status Date / Time Penicillins Allergy Hives Verified 06/08/17 17:20 Review of Systems Constitutional: as per HPI, fatigue, fever(s) Nose, mouth and throat: dry mouth Cardiovascular: edema, leg ulcers, no chest pain Respiratory: cough, excessive phlegm production, no change in phlegm color Gastrointestinal: no abdominal pain, no diarrhea Genitourinary Female: no dysuria, no urinary urgency Musculoskeletal: back pain, deformity, muscle weakness Integumentary: changing lesions (improved compared to months ago she affirmed), no new lesions Neurological: no confusion, no focal weakness Psychiatric: depression, difficulty concentrating Endocrine: cold intolerance, fatigue Hematologic/Lymphatic: easy bleeding, easy bruising Exam - Vital Signs Vital signs: Initial Vital Signs Temp Pulse Resp BP Pulse Ox 98.3 F 80 20 198/82 96 06/08/17 17:20 06/08/17 17:20 06/08/17 17:20 06/08/17 17:20 06/08/17 17:20 Vital Signs - Last 8 Hours Temp Pulse Resp BP Pulse Ox 06/09/17 08:30 97 06/09/17 08:04 78 97 06/09/17 07:59 98.9 F 81 24 154/72 96 06/09/17 07:51 98.9 F 84 24 154/76 85 06/09/17 06:43 162/70 06/09/17 05:16 184/74 06/09/17 04:32 99.9 F H 88 16 192/77 90 Intake and Output 06/08/17 06/09/17 06/09/17 23:59 07:59 15:59 Intake Total 1300 / 1300 660 / 660 Balance 1300 / 1300 660 / 660 Intake: IV Fluids 1300 / 1300 660 / 660 0.9 % Sodium Chloride 1,000 ML 1000 / 1000 660 / 660 @ 75 mls/hr IVC .[id number] [facility] Rx #:[id number] Flagyl Premix 500 MG/100 ML 500 200 / 200 mg In 100 ml @ 100 mls/hr IVPB Q8HR [facility] Rx#:[id number] Rocephin 1,000 MG In Dextrose 5 100 / 100 % (Minibag+) 100 ML 100 ML @ 200 mls/hr IVPB ONCE ONE Rx#: [id number] Other: Weight 68.6 kg Blood Glucose* 113 83 Patient Weight 06/09/17 23:59 Weight 68.6 kg - General Appearance General appearance: appears started age, chronically ill, fatigue, frail EENT: ATNC, PERRL, mucous membranes dry Neck: supple Respiratory: course breath sounds Cardiology: edema (trace right ankle edema), regular rate, regular rhythm, normal S1, normal S2 - Dialysis Access Dialysis Vascular Access: Arteriovenous Fistula (Right UE AVF +Thrill and excellent bruit, some surrounding bruising) thrill: Yes bruit: Yes Integumentary: warm and dry, hyperpigmentation Additional Comments: left BKD stump wound Neurologic: no focal deficit (but slow mental processing and conversation. Not slurred), no asterixis, alert and oriented x3 Musculoskeletal: deformities, no cyanosis Psychiatric: depressed, cooperative Results - Lab Results 06/09/17 00:19 06/09/17 00:19 Most recent lab results Calcium 9.0 mg/dL (8.6-10.8) 06/09/17 00:19 Magnesium 1.5 mg/dL (1.6-2.6) L 06/09/17 00:19 I reviewed the progress notes and the labs, plus meds, vitals, imaging and even outside medical records from the [facility] dialysis unit. Consult Discharge Plan - Plan Referrals: Rudi Avila MD [Primary Care Provider] -
[2017-06-09 10:25] LABS: Hepatitis B Surface Antigen Nonreactive (Nonreactive)
--- NOTE | 2017-06-09 12:16 | Internal Med Progress Note ---
Date of Encounter: 06/09/17 Time of Encounter: 09:35 - Assessment and plan (1) Pneumonia Current Visit: Yes Status: Acute Assessment and plan: Patient doing better today. Continue current antibiotics. Low-grade fever early this morning with a MAXIMUM TEMPERATURE of 99.9. We will continue to monitor vital signs. Follow blood cultures. Qualifiers: Pneumonia type: aspiration pneumonia Laterality: left Lung location: upper lobe of lung Qualified Code(s): J69.0 - Pneumonitis due to inhalation of food and vomit (2) Anemia in chronic kidney disease Current Visit: Yes Status: Chronic Assessment and plan: Hemoglobin 10.2. We will monitor Qualifiers: Chronic kidney disease stage: on chronic dialysis Qualified Code(s): N18.6 - End stage renal disease; D63.1 - Anemia in chronic kidney disease; D63.1 - Anemia in chronic kidney disease; Z99.2 - Dependence on renal dialysis; Z99.2 - Dependence on renal dialysis; Z99.2 - Dependence on renal dialysis; Z99.2 - Dependence on renal dialysis (3) CAD (coronary artery disease) Current Visit: Yes Status: Chronic Assessment and plan: No chest pain at this time. Mild troponin elevation which is chronic for the patient. Qualifiers: Coronary Disease-Associated Artery/Lesion type: [place] artery [place] vs. transplanted heart: [place] heart Associated angina: with stable angina Qualified Code(s): I25.118 - Atherosclerotic heart disease of [place] coronary artery with other forms of angina pectoris (4) Diabetes mellitus Current Visit: Yes Status: Chronic Assessment and plan: Monitor blood sugars. Currently well controlled. Qualifiers: Diabetes mellitus type: type 2 Diabetes mellitus complication status: with unspecified complications Diabetes mellitus terminal manager insulin use: with terminal manager use Qualified Code(s): E11.8 - Type 2 diabetes mellitus with unspecified complications; Z79.4 - watermelon inspector (current) use of insulin (5) DVT prophylaxis Current Visit: Yes Status: Acute Assessment and plan: On subcutaneous heparin (6) Elevated troponin Current Visit: Yes Status: Acute Assessment and plan: Stable. No chest pain. Chronic elevation in troponins. (7) ESRD (end stage renal disease) on dialysis Current Visit: Yes Status: Chronic Assessment and plan: Nephrology consulted. Patient to be taken for dialysis today. (8) Essential hypertension Current Visit: Yes Status: Chronic Assessment and plan: Blood pressure elevated. Continue metoprolol. Hydralazine IV when necessary. We will monitor and adjust antihypertensive regimen accordingly. (9) Nausea and vomiting Current Visit: Yes Status: Acute Assessment and plan: Improving. Continue antiemetics as needed. Possibly from uremia or gastroenteritis. Qualifiers: Vomiting type: unspecified Vomiting Intractability: non-intractable Qualified Code(s): R11.2 - Nausea with vomiting, unspecified (10) Urinary tract infection Current Visit: Yes Status: Acute Assessment and plan: Urinalysis suggests presence of acute urinary tract infection. However patient is a dialysis patient. We will wait for culture results. Currently receiving antibiotics for pneumonia. Qualifiers: Urinary tract infection type: acute cystitis Hematuria presence: with hematuria Qualified Code(s): N30.01 - Acute cystitis with hematuria (11) Diarrhea Current Visit: Yes Status: Acute Assessment and plan: Uncertain etiology at this time. Has not had any bowel movement today. C. difficile testing has therefore not been done. Will monitor for now. Qualifiers: Diarrhea type: unspecified type Qualified Code(s): R19.7 - Diarrhea, unspecified - Subjective Interval history: Patient is lying in bed. Appears comfortable. Feels better compared to yesterday. Denies any shortness of breath. Has not had any new episodes of vomiting but continues to have nausea. No new episodes of diarrhea either. - Constitutional Vitals: Temp Pulse Resp BP Pulse Ox 98.9 F 78 24 154/72 97 06/09/17 07:59 06/09/17 08:04 06/09/17 07:59 06/09/17 07:59 06/09/17 08:30 General appearance: Present: A&O X 3, no acute distress, answers questions appropriately - Neck Neck exam general surgery: Present: supple, trachea midline. Absent: lymphadenopathy - Respiratory Respiratory exam: Present: CTAB. Absent: accessory muscle use, rales, rhonchi, wheezes - Cardiovascular Cardiovascular exam: Present: RRR, +S1, +S2. Absent: diastolic murmur, gallop, rubs, systolic murmur - GI/Abdominal GI/Abdominal exam: Present: normal bowel sounds, soft, no peritoneal signs. Absent: distended, tenderness - Extremities Exam Extremities exam: Present: warm, radial pulses palpable and symmetrical. Absent : calf tenderness, cyanotic, pedal edema Additional comments: status post left BKA - Neurological Exam Neurological exam: Present: alert, oriented X3, no focal deficits. Absent: facial droop, speech deficit - Skin Skin exam: Present: dry, intact Internal Medicine: Result - Labs CBC & Chem 7: 06/09/17 00:19 06/09/17 00:19 Labs: Short CBC 06/09/17 Range/Units 00:19 WBC 4.2 L (4.3-11.1) K/mcL Hgb 10.2 L D (11.5-15.4) g/dL Hct 30.2 L (35.3-44.9) % Plt Count 139 L (140-400) K/mcL Neutrophils # 3.4 (1.6-8.9) K/mcL BMP 06/09/17 00:19 Sodium 136 Potassium 3.8 Chloride 102 Carbon Dioxide 25 BUN 23 H Creatinine 5.82 H Glucose 105 H Calcium 9.0 Cardiac Enzymes 06/09/17 06/09/17 Range/Units 00:19 06:27 Troponin I 0.22 H* 0.25 H* (0-0.03) ng/mL Consult Discharge Plan - Plan Referrals: Rudi Avila MD [Primary Care Provider] -
[2017-06-09] MEDS ORDERED: Acetaminophen 325 MG TABLET PO PRN (21:27)
[2017-06-10] MEDS: *HR* Heparin 5,000 UNIT/ML VIAL SQ SCH ×2 (05:49→17:50)
[2017-06-10 05:53] LABS: Calcium 9.2 mg/dL (8.6-10.8); Potassium 4.1 mEq/L (3.5-4.5)
--- NOTE | 2017-06-10 07:38 | Nephrology Progress Note ---
Date of Encounter: 06/10/17 Time of Encounter: 07:37 - Assessment and Plan (1) ESRD (end stage renal disease) on dialysis Current Visit: Yes Status: Chronic Plan for next HD tomorrow. (2) Generalized weakness Current Visit: Yes Status: Acute Most likely d/t the PNA. Would recommend PT/OT if able, however she recently has seen [facility] for a fracture of the right heal that was inoperable and the pt is not to bear weight. She has been getting SQ heparin while inpatient for DVT prophylaxis. I read the progress and telephone notes between Podiatry and her PCP. (3) Decubitus ulcer of left leg, stage 3 Current Visit: No Status: Chronic Wound care following this that had started prior to admission. (4) Anemia in chronic kidney disease Current Visit: Yes Status: Chronic Hgb target is 10-11 and she is in goal. Qualifiers: Chronic kidney disease stage: on chronic dialysis Qualified Code(s): N18.6 - End stage renal disease; D63.1 - Anemia in chronic kidney disease; D63.1 - Anemia in chronic kidney disease; Z99.2 - Dependence on renal dialysis; Z99.2 - Dependence on renal dialysis; Z99.2 - Dependence on renal dialysis; Z99.2 - Dependence on renal dialysis (5) Calciphylaxis Current Visit: No Status: Resolved Resolved. No longer on Sodium Thiosulfate. (6) Diabetes mellitus with neuropathy Current Visit: No Status: Chronic As per primary. 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 UCx had no growth Qualifiers: Pneumonia type: aspiration pneumonia Laterality: left Lung location: upper lobe of lung Qualified Code(s): J69.0 - Pneumonitis due to inhalation of food and vomit Subjective Principal diagnosis: ESRD, PNA Interval history: Pt was seen/examined this AM. She did not affirm N/V and fees fatigued. She said she has a cough but was not able to cough on command this AM. She did not report cramping with HD yesterday. Yesterday afternoon, I called into the 2A unit and spoke with the pt's in detail: we talked about her recent right foot fx and having been placed on outpatient SQ Lovenox at renal dosing; we talked about her PNA and her plans for HD on Sunday and then back to schedule on Sunday. He thanked me for the call. Objective - Vital Signs Vital signs: Vital Signs Temp Pulse Resp BP Pulse Ox 06/10/17 03:08 97.5 F L 62 18 160/66 100 06/09/17 23:50 98.9 F 67 16 114/53 95 06/09/17 22:06 100.1 F H 80 22 158/70 06/09/17 19:33 101.4 F H 77 16 182/71 98 06/09/17 16:22 97.7 F 18 195/85 06/09/17 16:18 98.4 F 85 24 196/78 98 06/09/17 15:25 194/85 06/09/17 15:10 197/87 06/09/17 14:55 190/85 06/09/17 14:40 188/83 06/09/17 14:25 192/84 06/09/17 14:10 188/80 06/09/17 13:55 194/79 06/09/17 13:40 180/84 06/09/17 13:25 185/87 06/09/17 13:10 155/95 06/09/17 12:55 187/88 06/09/17 12:40 169/86 06/09/17 10:35 169/80 06/09/17 10:20 171/80 06/09/17 10:05 97.7 F 18 178/84 06/09/17 08:30 97 06/09/17 08:04 78 97 06/09/17 07:59 98.9 F 81 24 154/72 96 06/09/17 07:51 98.9 F 84 24 154/76 85 Intake and Output 06/09/17 06/09/17 06/10/17 15:59 23:59 07:59 Intake Total 1380 / 1380 100 / 100 100 / 100 Output Total 1100 / 1100 Balance 1380 / 1380 -1000 / -1000 100 / 100 Intake: IV Fluids 660 / 660 100 / 100 100 / 100 0.9 % Sodium Chloride 1,000 ML 660 / 660 @ 75 mls/hr IVC .[id number] [facility] Rx #:[id number] Flagyl Premix 500 MG/100 ML 500 100 / 100 100 / 100 mg In 100 ml @ 100 mls/hr IVPB Q8HR [facility] Rx#:[id number] Oral 120 / 120 Intake, Rinseback and Flushes 600 / 600 Output: Urine 0 / 0 Total Dialysis (HD) Output 1100 / 1100 Other: Meal Breakfast Percent of Meal Consumed 5% Weight 68.6 kg 67.8 kg Blood Glucose* 77 120 Hemodialysis Net Fluid Removed 1100 500 (mL) Patient Weight 06/10/17 23:59 Weight 67.8 kg - General Appearance General appearance: Present: well-developed, cachectic, chronically ill, fatigue , frail EENT: Present: ATNC, PERRL, mucous membranes moist Neck: Present: supple Respiratory: Present: course breath sounds, rhonchi Cardiology: Present: no edema, regular rate, regular rhythm, normal S1, normal S2 Dialysis Vascular Access: Arteriovenous Fistula (Right AVF with bandages c/d/i) thrill: Yes bruit: Yes Gastrointestinal: Present: normoactive bowel sounds, no guarding, no organomegaly Integumentary: Present: no rash, warm and dry Neurologic: Present: no focal deficit, no asterixis, alert and oriented x3 Musculoskeletal: Present: deformities (Left BKA), no cyanosis, no clubbing Psychiatric: Present: depressed, cooperative - Lab 06/09/17 00:19 06/10/17 05:28 Most recent lab results Calcium 9.2 mg/dL (8.6-10.8) 06/10/17 05:28 Phosphorus 4.0 mg/dL (2.3-4.7) 06/10/17 05:28 Magnesium 1.5 mg/dL (1.6-2.6) L 06/09/17 00:19 Consult Discharge Plan - Plan Referrals: Rudi Avila MD [Primary Care Provider] -
[2017-06-10] MEDS: MetroNIDAZOLE 500 MG/100 ML 500 MG/100 ML BAG IVPB SCH (08:15)
[2017-06-10] MEDS: Gabapentin 100 MG CAPSULE PO SCH ×3 (08:15→21:40)
[2017-06-10] MEDS: Insulin LISPRO 300 UNITS/3 ML VIAL SQ SCH ×4 (08:25→21:33)
--- NOTE | 2017-06-10 11:08 | Internal Med Progress Note ---
Date of Encounter: 06/10/17 Time of Encounter: 11:06 - Assessment and plan (1) Pneumonia Current Visit: Yes Status: Acute Assessment and plan: Clinically getting better. Cultures have been negative. We will repeat chest x -ray today. No fever or chills reported overnight. Moderate risk for complications. Qualifiers: Pneumonia type: aspiration pneumonia Laterality: left Lung location: upper lobe of lung Qualified Code(s): J69.0 - Pneumonitis due to inhalation of food and vomit (2) Anemia in chronic kidney disease Current Visit: Yes Status: Chronic Assessment and plan: Hemoglobin 10.2. Will continue to monitor Qualifiers: Chronic kidney disease stage: on chronic dialysis Qualified Code(s): N18.6 - End stage renal disease; D63.1 - Anemia in chronic kidney disease; D63.1 - Anemia in chronic kidney disease; Z99.2 - Dependence on renal dialysis; Z99.2 - Dependence on renal dialysis; Z99.2 - Dependence on renal dialysis; Z99.2 - Dependence on renal dialysis (3) CAD (coronary artery disease) Current Visit: Yes Status: Chronic Assessment and plan: No chest pain. Continue home medications. Qualifiers: Coronary Disease-Associated Artery/Lesion type: [place] artery [place] vs. transplanted heart: [place] heart Associated angina: with stable angina Qualified Code(s): I25.118 - Atherosclerotic heart disease of [place] coronary artery with other forms of angina pectoris (4) Diabetes mellitus Current Visit: Yes Status: Chronic Assessment and plan: Well controlled. 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 No chest pain. No further workup at this time (6) ESRD (end stage renal disease) on dialysis Current Visit: Yes Status: Chronic Assessment and plan: Continue dialysis per nephrology recommendations (7) Essential hypertension Current Visit: Yes Status: Chronic Assessment and plan: Uncontrolled. Will place patient on lisinopril in addition to metoprolol. Continue to monitor blood pressure closely. Also on IV hydralazine as needed. (8) Nausea and vomiting Current Visit: Yes Status: Acute Assessment and plan: Improved at this time. Continue antiemetics as needed Qualifiers: Vomiting type: unspecified Vomiting Intractability: non-intractable Qualified Code(s): R11.2 - Nausea with vomiting, unspecified (9) Urinary tract infection Current Visit: Yes Status: Ruled-out Assessment and plan: Urine culture shows no growth. Qualifiers: Urinary tract infection type: acute cystitis Hematuria presence: with hematuria Qualified Code(s): N30.01 - Acute cystitis with hematuria (10) Diarrhea Current Visit: Yes Status: Acute Assessment and plan: Stool for C. difficile ordered. We will await results. Qualifiers: Diarrhea type: unspecified type Qualified Code(s): R19.7 - Diarrhea, unspecified (11) DVT prophylaxis Current Visit: Yes Status: Acute - Subjective Interval history: Patient is lying in bed. Sleeping but awakes. She was much more alert earlier this morning and responding well to her daughter's questions. Daughter is present at bedside. No fever reported overnight. No other complaints at this time. - Constitutional Vitals: Temp Pulse Resp BP Pulse Ox 98.8 F 78 15 181/78 97 06/10/17 09:35 06/10/17 09:35 06/10/17 09:35 06/10/17 09:35 06/10/17 09:35 General appearance: Present: cooperative, no acute distress, answers questions appropriately Exam: Somnolent. - Neck Neck exam general surgery: Present: supple, trachea midline. Absent: lymphadenopathy - Respiratory Respiratory exam: Present: CTAB. Absent: accessory muscle use, rales, rhonchi, wheezes - Cardiovascular Cardiovascular exam: Present: RRR, +S1, +S2. Absent: diastolic murmur, gallop, rubs, systolic murmur - Extremities Exam Extremities exam: Present: warm, radial pulses palpable and symmetrical. Absent : calf tenderness, cyanotic, pedal edema Additional comments: Status post left BKA - Neurological Exam Neurological exam: Present: no focal deficits. Absent: facial droop, speech deficit - Skin Skin exam: Present: dry, intact Internal Medicine: Result - Labs CBC & Chem 7: 06/09/17 00:19 06/10/17 05:28 Labs: BMP 06/10/17 05:28 Sodium 138 Potassium 4.1 Chloride 102 Carbon Dioxide 26 BUN 12 D Creatinine 4.23 H Glucose 86 Calcium 9.2 Consult Discharge Plan - Plan Referrals: Rudi Avila MD [Primary Care Provider] -
[2017-06-10] MEDS: Lisinopril 20 MG TABLET PO SCH (11:31)
[2017-06-10] MEDS: metroNIDAZOLE 500 MG TABLET PO SCH ×2 (15:46→21:39)
--- NOTE | 2017-06-10 19:23 | Electrocardiograph Report ---
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
[2017-06-11 04:08] LABS: Basophils % 0.3 %; Eosinophils # 0.3 K/mcL (0.0-0.6); Eosinophils % 8.8 %; Hematocrit 26.8 % (35.3-44.9); Hemoglobin 8.8 g/dL (11.5-15.4); Immature Granulocytes % 0.6 % (0-4); Immature Platelets 4.4 % (1.1-6.1); Lymphocytes # 0.9 K/mcL (0.6-4.6); Lymphocytes % 25.4 %; Mean Corpuscular HGB Conc 32.8 g/dL (31.6-35.5); Mean Corpuscular Hemoglobin 31.9 pg (28.0-33.3); Mean Corpuscular Volume 97.1 fL (83.0-100.0); Mean Platelet Volume 10.8 fL (9.4-12.4); Monocytes # 0.4 K/mcL (0.0-1.3); Monocytes % 11.8 %; Neutrophils # 1.8 K/mcL (1.6-8.9); Platelet Count 121 K/mcL (140-400); Red Blood Count 2.76 M/mcL (3.82-4.97); Red Cell Distribution Width 14.1 % (11.5-14.5); Segmented Neutrophils % 53.1 %
[2017-06-11 04:35] LABS: Calcium 8.6 mg/dL (8.6-10.8); Phosphorous 4.1 mg/dL (2.3-4.7); Potassium 3.5 mEq/L (3.5-4.5)
[2017-06-11] MEDS ORDERED: 0.9 % Sodium Chloride 250 ML IVC PRN (06:00)
[2017-06-11] MEDS: *HR* Heparin 5,000 UNIT/ML VIAL SQ SCH (06:36)
[2017-06-11] MEDS ORDERED: *HR* Heparin 5,000 UNIT/ML VIAL ONE (08:18)
[2017-06-11] MEDS ORDERED: 0.9 % Sodium Chloride 2,000 ML ONE (08:19)
[2017-06-11] MEDS: Insulin LISPRO 300 UNITS/3 ML VIAL SQ SCH ×3 (09:06→17:21)
[2017-06-11] MEDS: Gabapentin 100 MG CAPSULE PO SCH ×2 (09:10→14:55)
[2017-06-11] MEDS: metroNIDAZOLE 500 MG TABLET PO SCH ×2 (09:11→14:55)
[2017-06-11] MEDS ORDERED: traMADol 50 MG TABLET PO PRN (10:14)
[2017-06-11] MEDS ORDERED: *HR* HYDROcodone/Acet 5/325 mg TABLET PO PRN (10:14)
[2017-06-11 11:48] LABS: Hepatitis B Surface Antibody 0.51 mIU/mL
--- NOTE | 2017-06-11 12:04 | Nephrology Progress Note ---
Date of Encounter: 06/11/17 Time of Encounter: 09:25 - Assessment and Plan (1) ESRD (end stage renal disease) on dialysis Status: Chronic Plan for HD today Now found to have C diff on flagyl. She reported feeling slowly better and voiced improved mood as well. Next HD is tentatively planned for Sunday (2) Generalized weakness Status: Acute Most likely d/t the PNA. Would recommend PT/OT if able, however she recently has seen [facility] for a fracture of the right heal that was inoperable and the pt is not to bear weight. She has been getting SQ heparin while inpatient for DVT prophylaxis. I read the progress and telephone notes between Podiatry and her PCP. (3) Decubitus ulcer of left leg, stage 3 Status: Chronic Wound care following this that had started prior to admission. (4) Anemia in chronic kidney disease Status: Chronic Hgb target is 10-11 and she is in goal. Qualifiers: Chronic kidney disease stage: on chronic dialysis Qualified Code(s): N18.6 - End stage renal disease; D63.1 - Anemia in chronic kidney disease; D63.1 - Anemia in chronic kidney disease; Z99.2 - Dependence on renal dialysis; Z99.2 - Dependence on renal dialysis; Z99.2 - Dependence on renal dialysis; Z99.2 - Dependence on renal dialysis (5) Calciphylaxis Status: Resolved Resolved. No longer on Sodium Thiosulfate. (6) Diabetes mellitus with neuropathy Status: Chronic As per primary. Qualifiers: Diabetes mellitus type: type 2 Diabetes mellitus residential insulin use: with residential use Qualified Code(s): E11.40 - Type 2 diabetes mellitus with diabetic neuropathy, unspecified; Z79.4 - senior living (current) use of insulin; Z79.4 - senior living (current) use of insulin; Z79.4 - senior living (current) use of insulin; Z79.4 - senior living (current) use of insulin Subjective Principal diagnosis: ESRD, PNA Interval history: Pt was seen/examined this AM while on HD. She did not affirm N/V but has developed diarrhea. Her cough is improving and no new fevers. She voiced feeling better. Objective - Vital Signs Vital signs: Vital Signs Temp Pulse Resp BP Pulse Ox 06/11/17 07:50 98.1 F 64 18 137/74 98 06/10/17 23:49 98.4 F 62 16 135/58 97 06/10/17 20:19 99.4 F 76 16 158/63 90 06/10/17 15:53 99.1 F 74 18 162/71 95 Intake and Output 06/10/17 06/11/17 06/11/17 23:59 07:59 15:59 Intake Total 0 / 0 0 / 0 0 / 0 Output Total 0 / 0 Balance 0 / 0 0 / 0 0 / 0 Intake: Oral 0 / 0 0 / 0 0 / 0 Output: Urine 0 / 0 Other: Stool Size Large Moderate Stool Consistency loose soft liquid Stool Characteristics Pasty Stool Color Brown Brown Yellow # Bowel Movement Diapers 1 1 Blood Glucose* 142 90 108 - General Appearance General appearance: Present: well-developed, well-nourished, appears started age EENT: Present: ATNC, PERRL, mucous membranes moist Neck: Present: supple Respiratory: Present: clear Cardiology: Present: no edema, regular rate, normal S1, normal S2 Gastrointestinal: Present: normoactive bowel sounds, no tenderness, no guarding Integumentary: Present: warm and dry Neurologic: Present: no focal deficit Musculoskeletal: Present: deformities (left BKA), no cyanosis, no clubbing Psychiatric: Present: mood/affect appropriate, cooperative - Lab 06/11/17 03:48 06/11/17 03:48 Most recent lab results Calcium 8.6 mg/dL (8.6-10.8) 06/11/17 03:48 Phosphorus 4.1 mg/dL (2.3-4.7) 06/11/17 03:48 Magnesium 1.5 mg/dL (1.6-2.6) L 06/09/17 00:19 Consult Discharge Plan - Plan Instructions: Diabetes Mellitus Type 2 in Adults (DC), Clostridium Difficile Infection (DC), Anemia (GEN) Referrals: Yudy Taylor DO [Partnered Physician] - 06/18/17 9:30 am (Please follow up with Dr. Taylor since Dr. Avila is full at this time) Prescriptions: Aspirin Enteric Coated [Aspirin EC] 81 mg PO DAILY #30 tablet. Lactobacillus [Culturelle] 1 each PO BID #30 cap.sprink metroNIDAZOLE [Flagyl] 500 mg PO TID #42 tablet
[2017-06-11] MEDS: Lisinopril 20 MG TABLET PO SCH (14:55)
--- NOTE | 2017-06-11 15:45 | Discharge Summary ---
Date of Encounter: 06/11/17 Time of Encounter: 15:36 - Discharge Diagnosis (1) C. difficile colitis Priority: Primary Status: Acute (2) Pneumonia Priority: Primary Status: Ruled-out Qualifiers: Pneumonia type: aspiration pneumonia Aspiration pneumonia type: due to vomit Laterality: right Lung location: lower lobe of lung Qualified Code(s ): J69.0 - Pneumonitis due to inhalation of food and vomit (3) Anemia in chronic kidney disease Priority: Secondary Status: Chronic Qualifiers: Chronic kidney disease stage: on chronic dialysis Qualified Code(s): N18.6 - End stage renal disease; D63.1 - Anemia in chronic kidney disease; D63.1 - Anemia in chronic kidney disease; Z99.2 - Dependence on renal dialysis; Z99.2 - Dependence on renal dialysis; Z99.2 - Dependence on renal dialysis; Z99.2 - Dependence on renal dialysis (4) CAD (coronary artery disease) Priority: Secondary Status: Chronic Qualifiers: Coronary Disease-Associated Artery/Lesion type: [place] artery [place] vs. 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 fpc use Qualified Code(s): E11.8 - Type 2 diabetes mellitus with unspecified complications; Z79.4 - ad terminal makeup operator (current) use of insulin (6) Elevated troponin Priority: Secondary Status: Chronic (7) ESRD (end stage renal disease) on dialysis Priority: Secondary Status: Chronic (8) Essential hypertension Priority: Secondary Status: Chronic (9) Nausea and vomiting Priority: Secondary Status: Acute Qualifiers: Vomiting type: unspecified Vomiting Intractability: non-intractable Qualified Code(s): R11.2 - Nausea with vomiting, unspecified (10) Urinary tract infection Priority: Secondary Status: Ruled-out Qualifiers: Urinary tract infection type: acute cystitis Hematuria presence: with hematuria Qualified Code(s): N30.01 - Acute cystitis with hematuria (11) Diarrhea Priority: Secondary Status: Acute Qualifiers: Diarrhea type: infectious Qualified Code(s): A09 - Infectious gastroenteritis and colitis, unspecified (12) DVT prophylaxis Priority: Secondary Status: Acute - Discharge Medications Prescriptions: Aspirin Enteric Coated [Aspirin EC] 81 mg PO DAILY #30 tablet. Lactobacillus [Culturelle] 1 each PO BID #30 cap.sprink metroNIDAZOLE [Flagyl] 500 mg PO TID #42 tablet Home Medications: Acetaminophen [Tylenol] 1,000 mg PO HS PRN 10/09/16 [History] Lidocaine/Prilocaine [Emla] 1 appl TP ONCE PRN 10/09/16 [History] Clopidogrel [Plavix] 75 mg PO DAILY tablet 10/16/16 [Rx] DiphenhydraMINE [Benadryl] 25 mg PO HS PRN #10 02/05/17 [Rx] Gabapentin [Neurontin] 100 mg PO TID #30 02/05/17 [Rx] Atorvastatin [Lipitor] 40 mg PO HS 03/30/17 [History] Citalopram [CeleXA] 20 mg PO DAILY 03/30/17 [History] HYDROcodone/Acet 5/325 mg [Timblin 5-325 mg] 1 tab PO Q6H PRN #20 03/30/17 [Rx] Metoprolol [Lopressor] 25 mg PO BID 03/30/17 [History] Ondansetron HCl [Zofran] 4 mg PO TID #15 tablet 05/13/17 [Rx] Tramadol HCl [Ultram] 50 mg PO TID PRN #9 tab 05/13/17 [Rx] Aspirin Enteric Coated [Aspirin EC] 81 mg PO DAILY #30 tablet. 06/11/17 [Rx] Lactobacillus [Culturelle] 1 each PO BID #30 cap.sprink 06/11/17 [Rx] metroNIDAZOLE [Flagyl] 500 mg PO TID #42 tablet 06/11/17 [Rx] Allergies/Adverse Reactions: 3 Allergy/AdvReac Type Severity Reaction Status Date / Time Penicillins Allergy Hives Verified 06/08/17 17:20 Date of admission: 06/08/17 19:14 Primary care physician: Rudi Avila MD Consults: 06/08/17 21:43 Consult to Nutrition [CONS] Routine Comment: Consulting Provider: NUTRITION Reason for Dietary Consult: MST Score 06/09/17 02:34 Consult to Wound Care [CONS] Routine Reason for Consult: BKA on 01/22/17. Patient has two scabbed areas that family states have not been healing. Family states that they were doing dressing changes on these at home. 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 Operator [CONS] Routine Reason for SW Consult: DIscharge planning 06/11/17 06:00 Consult to Dialysis [CONS] ONCE Discharging clinician: Brina Hurst Anticipated date of discharge: 06/11/17 - Patient Status Disposition: Home Health Service Condition: Good Functional capacity at discharge: wheelchair bound Overall status at discharge: patient is progressing back to baseline - Discharge Instructions Instructions: Diabetes Mellitus Type 2 in Adults (DC), Clostridium Difficile Infection (DC), Anemia (GEN) Follow Up With: Yudy Taylor DO [Partnered Physician] - 06/18/17 9:30 am (Please follow up with Dr. Taylor since Dr. Avila is full at this time) - Diet and Activity Activity: resume usual activities as tolerated Hospital course: Ms. Eng is a 71 year old female patient with a history of end-stage renal disease on hemodialysis who presented to the ER with complaints of generalized weakness, nausea vomiting and diarrhea for the past 2-3 weeks. She did not have any abdominal pain but she was unable to eat because of persistent nausea and vomiting. She did have occasional fever and dry cough. Chest x-ray done in the ER showed some asymmetrical edema concerning for pulmonary edema versus infiltrate. She was started on IV antibiotics and underwent hemodialysis per nephrology recommendations. Repeat chest x-ray did not show any infiltrate but there was some perihilar congestion which appears to be chronic for the patient. She was also suspected of having UTI but her urine cultures have been negative. Stool studies were positive for C. difficile. Patient has not been placed on Flagyl. This is most likely cause of patient's symptoms of nausea vomiting and generalized weakness. I do not believe she has pneumonia. She is now doing much better and is tolerating oral diet well. She will be discharged home on Flagyl to complete a 14 day treatment course. She is stable for discharge and will be discharged after evaluation by physical therapy. She wishes to go home with home health. - Time Spent with Patient Total time spent providing and/or coordinating discharge services: Greater than 30 minutes (40 min) - Constitutional Vitals: Temp Pulse Resp BP Pulse Ox 98.2 F 64 18 143/67 98 06/11/17 09:40 06/11/17 07:50 06/11/17 09:40 06/11/17 09:55 06/11/17 07:50 General appearance: Present: cooperative, no acute distress, answers questions appropriately - Eye Eye exam: Present: conjuntiva pink, sclera anicteric - Respiratory Respiratory exam: Present: CTAB. Absent: accessory muscle use, rales, rhonchi, wheezes - Cardiovascular Cardiovascular exam: Present: RRR, +S1, +S2. Absent: diastolic murmur, gallop, rubs, systolic murmur - GI/Abdominal GI/Abdominal exam: Present: normal bowel sounds, soft, no peritoneal signs. Absent: distended, tenderness - Extremities Exam Extremities exam: Present: warm, radial pulses palpable and symmetrical. Absent : calf tenderness, cyanotic, pedal edema - Neurological Exam Neurological exam: Present: CN II-XII intact, oriented X3, no focal deficits. Absent: facial droop, speech deficit - Skin Skin exam: Present: dry, intact
--- NOTE | 2017-06-11 15:50 | Physician Discharge Referral ---
Home Health/Hosp Referral Info Transfer to: Home Health Provider in Charge Post Discharge: PCP - Diagnosis (1) C. difficile colitis Priority: Primary Status: Acute (2) Pneumonia Priority: Secondary Status: Ruled-out (3) Anemia in chronic kidney disease Priority: Secondary Status: Chronic (4) CAD (coronary artery disease) Priority: Secondary Status: Chronic (5) Diabetes mellitus Priority: Secondary Status: Chronic (6) Elevated troponin Priority: Secondary Status: Chronic (7) ESRD (end stage renal disease) on dialysis Priority: Secondary Status: Chronic (8) Essential hypertension Priority: Secondary Status: Chronic (9) Nausea and vomiting Priority: Secondary Status: Acute (10) Urinary tract infection Priority: Secondary Status: Ruled-out (11) Diarrhea Priority: Secondary Status: Acute (12) DVT prophylaxis Priority: Secondary Status: Acute - Respiratory Orders Smoking Cessation: Smoking cessation has been advised. For more information, call the [place] Tobacco Quit Line at 6-073-QCLE-NOW. - Diet/Nutrition Diet/Nutrition Orders: Mechanical Soft, Renal, Cardiac, No Concentrated Sweets ( diabetic) - Activity Activity: List: Per PT evaluation - Services Needed Following services are medically necessary services: Nursing, Physical Therapy, Occupational Therapy - Transfer Medications Prescriptions: Aspirin Enteric Coated [Aspirin EC] 81 mg PO DAILY #30 tablet. Lactobacillus [Culturelle] 1 each PO BID #30 cap.sprjose ramon metroNIDAZOLE [Flagyl] 500 mg PO TID #42 tablet Home Medications: Acetaminophen [Tylenol] 1,000 mg PO HS PRN 10/09/16 [History] Lidocaine/Prilocaine [Emla] 1 appl TP ONCE PRN 10/09/16 [History] Clopidogrel [Plavix] 75 mg PO DAILY tablet 10/16/16 [Rx] DiphenhydraMINE [Benadryl] 25 mg PO HS PRN #10 02/05/17 [Rx] Gabapentin [Neurontin] 100 mg PO TID #30 02/05/17 [Rx] Atorvastatin [Lipitor] 40 mg PO HS 03/30/17 [History] Citalopram [CeleXA] 20 mg PO DAILY 03/30/17 [History] HYDROcodone/Acet 5/325 mg [[place] 5-325 mg] 1 tab PO Q6H PRN #20 03/30/17 [Rx] Metoprolol [Lopressor] 25 mg PO BID 03/30/17 [History] Ondansetron HCl [Zofran] 4 mg PO TID #15 tablet 05/13/17 [Rx] Tramadol HCl [Ultram] 50 mg PO TID PRN #9 tab 05/13/17 [Rx] Aspirin Enteric Coated [Aspirin EC] 81 mg PO DAILY #30 tablet. 06/11/17 [Rx] Lactobacillus [Culturelle] 1 each PO BID #30 cap.sprink 06/11/17 [Rx] metroNIDAZOLE [Flagyl] 500 mg PO TID #42 tablet 06/11/17 [Rx] Allergies/Adverse Reactions: 3 Allergy/AdvReac Type Severity Reaction Status Date / Time Penicillins Allergy Hives Verified 06/08/17 17:20 Certification: Further, I certify that my clinical findings support that this patient is homebound (i.e. absences from home require considerable and taxing effort and are for medical reasons or congregation services or infrequently or short duration when for other reasons) because: Homebound Reason: Patient requires assistance of a person or device to safely leave home Attestation: My signature below is to certify that this patient is under my care and that I, or nurse practitioner, or a physician's assistant front office manager working with me, has a face-to -face encounter with this patient.
[2017-06-11 16:15] VITALS: BP 150/73
[2017-06-11] MEDS ORDERED: Leptospermum Honey GEL 1 APPL/5 ML MLS TP SCH (21:00)
== END 2017-06-11 18:38 | disposition home health service (06) ==
LOC: 2ANU 17:06 → EMEROO 17:06 → 2ANU 20:04
PROVIDERS: ADMIT Nurse Practitioner Family; ATTEND Internal Medicine

== ENCOUNTER 2017-09-03 06:02 | Inpatient (IN) ==
[2017-09-03] MEDS ORDERED: *HR* OxyCODONE/APAP 10/325 TABLET PO ONE (06:45)
--- NOTE | 2017-09-03 06:48 | Emergency Department Note ---
START Narrative - START START: I examined this patient and my medical decision-making was reviewed with the Resident Physician. I agree with the documented findings, disposition and treatment plan as described except to the extent set forth below. Leg pain following fall. 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 She has pain in both her lower extremities. We will get x-rays of the pelvis as well as the femurs bilaterally in the right knee and tib-fib region. Disposition pending results of x-ray findings.
--- NOTE | 2017-09-03 08:20 | Emergency Department Note ---
Disposition Clinical Impression: Hyperkalemia Closed left hip fracture Qualifiers: Encounter type: initial encounter Qualified Code(s): S72.002A - Fracture of unspecified part of neck of left femur, initial encounter for closed fracture Fracture of right tibial plateau Qualifiers: Encounter type: initial encounter Fracture type: closed Qualified Code(s): S82.141A - Displaced bicondylar fracture of right tibia, initial encounter for closed fracture Disposition: Admitted As Inpatient Condition: Fair Referrals: Rudi Avila MD [Primary Care Provider] - Forms: ED Satisfaction Letter General Adult HPI - General Chief complaint: ED Extremity Injury, Lower Stated complaint: bilateral leg pain agter fall Time Seen by Provider: 09/03/17 06:15 Source: patient, EMS Limitations: physical limitation Nursing Notes Reviewed: Yes Vital Signs Reviewed: Yes - History of Present Illness HPI Narrative: 71-year-old female who reports this morning she was sitting on the side of her bed trying to get her shoes on when she pitched forward falling on her side. She does not know if she hit her head. She does not know if she lost consciousness. She reports her only medical problem is significant osteoporosis and ESRD. She denies taking any medications at home. 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 She is complaining of pain in her left hip and her right knee. Radiation: non-radiation Pain Severity: severe Pain Scale: 10 Improves with: nothing Worsens with: movement Associated symptoms: Reports: denies other symptoms - Related Data Home Medications Medication Instructions Recorded Confirmed Acetaminophen [Tylenol] 1,000 mg PO HS PRN 10/09/16 06/08/17 Lidocaine/Prilocaine [Emla] 1 appl TP ONCE PRN 10/09/16 06/08/17 Citalopram [CeleXA] 20 mg PO DAILY 03/30/17 06/08/17 Metoprolol [Lopressor] 25 mg PO BID 03/30/17 06/08/17 Multivitamin [Multivitamins] 1 cap PO DAILY 09/03/17 09/03/17 Sevelamer [Renvela] 3 tab PO TIDWM 09/03/17 09/03/17 Previous Rx's Medication Instructions Recorded Clopidogrel [Plavix] 75 mg PO DAILY tablet 10/16/16 DiphenhydraMINE [Benadryl] 25 mg PO HS PRN #10 02/05/17 Gabapentin [Neurontin] 100 mg PO TID #30 02/05/17 Ondansetron HCl [Zofran] 4 mg PO TID #15 tablet 05/13/17 Aspirin Enteric Coated [Aspirin EC] 81 mg PO DAILY #30 tablet. 06/11/17 Allergies Allergy/AdvReac Type Severity Reaction Status Date / Time Penicillins Allergy Hives Verified 09/03/17 10:29 All systems ED: reviewed and negative except as stated. Constitutional: Denies: fever ENT ED: Denies: throat pain Cardiovascular: Denies: chest pain Respiratory: Denies: cough Gastrointestinal: Denies: abdominal pain Integumentary: Denies: rash Past Medical History - Past Medical History Medical history: Reports: diabetes, dialysis, hypertension, renal disease, other Surgical history: Reports: carotid endarterectomy, hysterectomy, orthopedic, other, thyroidectomy, other Psychiatric history: Reports: anxiety, depression DISABILITY INSURANCE HEARING OFFICER history: Reports: no DISABILITY INSURANCE HEARING OFFICER history - Social History Smoking Status: Never smoker Smokeless Tobacco Status: No Alcohol use: Reports: none Drug use: Reports: none Physical Exam - General Limitations: physical limitation General appearance: alert, in no apparent distress - Head Head exam: atraumatic - Eye Eye exam: Present: normal appearance, PERRL - ENT ENT exam: normal exam - Neck Neck exam: Present: normal inspection - Chest Chest inspection: Present: normal inspection - Respiratory Respiratory exam: Present: normal lung sounds bilaterally. Absent: respiratory distress - Cardiovascular Cardiovascular exam: Present: regular rate, normal rhythm - Abdominal Exam Abdominal exam: Present: soft, Non-Tender - Extremities Exam Extremities exam: Present: other (Left BKA. Right knee pain on palpation. Left hip pain on palpation. Limited ROM due to pain.) - Neurological Exam Neurological exam: Present: alert, oriented X3 - Skin Skin exam: Present: warm, dry Course Course Narrative: Left hip fx, right tibial plateau fx. Spoke with Dr Padilla. Will admit. She is currently non ambulatory at baseline. She has a BKA on the left due to a prior wound which led to osteomyelitis. Obtained labwork. Potassium of 6. Spoke with Dr Eng from nephrology who will do dialysis today. T waves more pronounced on EKG. Will give calcium. UTI is also present. Likely the cause of her mild confusion. CT head/cervical spine unremarkable. Vital Signs Temperature 97.7 F 09/03/17 06:06 Pulse Rate 75 09/03/17 06:06 Respiratory Rate 16 09/03/17 06:06 Blood Pressure 192/77 09/03/17 06:06 O2 Sat by Pulse Oximetry 98 09/03/17 06:06 Temperature 97.7 F 09/03/17 06:06 Pulse Rate 75 09/03/17 06:06 Respiratory Rate 16 09/03/17 06:06 Blood Pressure 192/77 09/03/17 06:06 O2 Sat by Pulse Oximetry 98 09/03/17 06:06 Oxygen Delivery Oxygen Delivery Room Air Medical Decision Making - Medical Records Medical records reviewed: Yes I reviewed the patient's medical records. - Lab Data Lab results reviewed: Yes I reviewed the patient's lab results. Result diagrams: 09/03/17 08:50 09/03/17 08:50 Lab Results 09/03/17 09/03/17 09/03/17 Range/Units 08:50 08:50 08:50 WBC 14.2 H (4.3-11.1) K/mcL RBC 3.15 L (3.82-4.97) M/mcL Hgb 9.9 L (11.5-15.4) g/dL Hct 30.8 L (35.3-44.9) % MCV 97.8 (83.0-100.0) fL MCH 31.4 (28.0-33.3) pg MCHC 32.1 (31.6-35.5) g/dL RDW 14.1 (11.5-14.5) % Plt Count 189 (140-400) K/mcL MPV 9.5 (9.4-12.4) fL Immature Gran % 0.5 (0-4) % Seg Neutrophils % 90.3 % Lymphocytes % 4.9 % Monocytes % 3.5 % Eosinophils % 0.7 % Basophils % 0.1 % Neutrophils # 12.9 H (1.6-8.9) K/mcL Lymphocytes # 0.7 (0.6-4.6) K/mcL Monocytes # 0.5 (0.0-1.3) K/mcL Eosinophils # 0.1 (0.0-0.6) K/mcL Basophils # 0.0 (0.0-0.2) K/mcL Sodium 136 (136-145) mEq/L Potassium 6.0 H (3.5-5.1) mEq/L Chloride 102 (98-107) mEq/L Carbon Dioxide 25 (23-29) mEq/L BUN 45 H (8-23) mg/dL Creatinine 7.57 H (0.60-1.20) mg/dL Est GFR ( Amer) 6 L (> 60) Est GFR (Non-Af Amer) 5 L (> 60) BUN/Creatinine Ratio 6 (6-26) Glucose 119 H (70-105) mg/dL Calculated Osmolality 295 (280-300) Calcium 9.3 (8.6-10.3) mg/dL Troponin I < 0.03 (< 0.04) ng/mL Urine Color (Yellow) Urine Clarity (Clear) Urine pH (5.0-8.0) pH Units Ur Specific [place] (1.010-1.025) Urine Protein (Neg-Trace) mg/dL Urine Glucose (UA) (Normal) mg/dL Urine Ketones (Negative) mg/dL Urine Blood (Negative) Urine Nitrite (Negative) Urine Bilirubin (Negative) Urine Urobilinogen (Normal) mg/dL Ur Leukocyte Esterase (Negative) Urine Microscopic RBC (0-3) per hpf Urine Microscopic WBC (0-3) per hpf Ur Squamous Epith Cells (None-Few) per lpf Urine Bacteria (None-Few) per hpf Hyaline Casts (None-Few) per lpf Urine Yeast (None Seen) per hpf Ur Culture Indicated? (NO) 09/03/17 Range/Units 09:12 WBC (4.3-11.1) K/mcL RBC (3.82-4.97) M/mcL Hgb (11.5-15.4) g/dL Hct (35.3-44.9) % MCV (83.0-100.0) fL MCH (28.0-33.3) pg MCHC (31.6-35.5) g/dL RDW (11.5-14.5) % Plt Count (140-400) K/mcL MPV (9.4-12.4) fL Immature Gran % (0-4) % Seg Neutrophils % % Lymphocytes % % Monocytes % % Eosinophils % % Basophils % % Neutrophils # (1.6-8.9) K/mcL Lymphocytes # (0.6-4.6) K/mcL Monocytes # (0.0-1.3) K/mcL Eosinophils # (0.0-0.6) K/mcL Basophils # (0.0-0.2) K/mcL Sodium (136-145) mEq/L Potassium (3.5-5.1) mEq/L Chloride (98-107) mEq/L Carbon Dioxide (23-29) mEq/L BUN (8-23) mg/dL Creatinine (0.60-1.20) mg/dL Est GFR ( Amer) (> 60) Est GFR (Non-Af Amer) (> 60) BUN/Creatinine Ratio (6-26) Glucose (70-105) mg/dL Calculated Osmolality (280-300) Calcium (8.6-10.3) mg/dL Troponin I (< 0.04) ng/mL Urine Color Yellow (Yellow) Urine Clarity Turbid A (Clear) Urine pH 8.0 (5.0-8.0) pH Units Ur Specific [place] 1.008 L (1.010-1.025) Urine Protein >=300 H (Neg-Trace) mg/dL Urine Glucose (UA) 100 H (Normal) mg/dL Urine Ketones Negative (Negative) mg/dL Urine Blood Moderate H (Negative) Urine Nitrite Negative (Negative) Urine Bilirubin Negative (Negative) Urine Urobilinogen Normal (Normal) mg/dL Ur Leukocyte Esterase Moderate H (Negative) Urine Microscopic RBC 3-5 H (0-3) per hpf Urine Microscopic WBC 50-100 H (0-3) per hpf Ur Squamous Epith Cells Many H (None-Few) per lpf Urine Bacteria Moderate H (None-Few) per hpf Hyaline Casts Few (None-Few) per lpf Urine Yeast Few H (None Seen) per hpf Ur Culture Indicated? NO. (NO) - Radiology Data Radiology results reviewed: Yes I reviewed the patient's radiology results. - EKG Data EKG #1 EKG attestation: Yes I reviewed and interpreted this EKG. EKG shows normal: sinus rhythm Rate: normal Rhythm: NSR [place]/QRS: normal When compared to previous EKG there are: changes noted, other (T waves in V1 and V2 more peaked than prior.) Interpretation: other (Prominent T waves) Attestation Statement - Attestation Attestation: I examined this patient and my medical decision-making was reviewed with the Resident Physician. I agree with the documented findings, disposition and treatment plan as described except to the extent set forth below. Patient to ED after a fall. Syncopal type episode where she fell to the ground and her leg. Patient has an externally rotated right leg. Tenderness over the left leg diffusely as well. Plan. Patient has chronic renal failure. She has a UTI. She is elevated potassium which we will treat with calcium bicarbonate insulin. She has a tibial plateau fracture and hip fracture. She has been discussed with orthopedics. We will call nephrology as well as her creatinine is now 7. Patient will be admitted to medicine. 40 minutes of critical care exclusive of separate billed procedures.
[2017-09-03] MEDS ORDERED: *HR* HYDROmorphone (PF) 1 MG/ML SYRINGE IVP ONE (08:49)
[2017-09-03 08:59] LABS: Basophils % 0.1 %; Eosinophils # 0.1 K/mcL (0.0-0.6); Eosinophils % 0.7 %; Hematocrit 30.8 % (35.3-44.9); Hemoglobin 9.9 g/dL (11.5-15.4); Immature Granulocytes % 0.5 % (0-4); Lymphocytes # 0.7 K/mcL (0.6-4.6); Lymphocytes % 4.9 %; Mean Corpuscular HGB Conc 32.1 g/dL (31.6-35.5); Mean Corpuscular Hemoglobin 31.4 pg (28.0-33.3); Mean Corpuscular Volume 97.8 fL (83.0-100.0); Mean Platelet Volume 9.5 fL (9.4-12.4); Monocytes # 0.5 K/mcL (0.0-1.3); Monocytes % 3.5 %; Neutrophils # 12.9 K/mcL (1.6-8.9); Platelet Count 189 K/mcL (140-400); Red Blood Count 3.15 M/mcL (3.82-4.97); Red Cell Distribution Width 14.1 % (11.5-14.5); Segmented Neutrophils % 90.3 %
[2017-09-03 09:14] LABS: Calcium 9.3 mg/dL (8.6-10.3)
[2017-09-03 09:20] LABS: Bilirubin,Urine Negative (Negative); Blood,Urine Moderate (Negative); Clarity,Urine Turbid (Clear); Color,Urine Yellow (Yellow); Glucose,Urine (UA) 100 mg/dL (Normal); Ketones,Urine Negative (Negative); Leukocyte Esterase,Urine Moderate (Negative); Nitrite,Urine Negative (Negative); Protein,Urine >=300 mg/dL (Neg-Trace); Specific Gravity,Urine 1.008 (1.010-1.025); Urobilinogen,Urine Normal (Normal)
[2017-09-03 09:22] LABS: Bacteria,Urine Moderate per hpf (None-Few); Squamous Epithelial Cell,Urine Many per lpf (None-Few); WBC,Urine 50-100 per hpf (0-3)
[2017-09-03 09:40] LABS: Hyaline Casts,Urine Few per lpf (None-Few); Yeast,Urine Few per hpf (None Seen)
--- NOTE | 2017-09-03 10:46 | Nephrology Consult Note ---
Date of Encounter: 09/03/17 Time of Encounter: 10:45 Assessment and Plan (1) Hyperkalemia Current Visit: Yes Status: Acute K 6.0 EKG reveals NSR, prominent T waves in V1 and V2 compared to previous EKG Patient given Calcium gluconate in the ED Telemetry monitoring Resume HD as scheduled MWF (2) ESRD (end stage renal disease) on dialysis Current Visit: Yes Status: Chronic Resume HD as scheduled MFW Avoid nephrotxins (3) Anemia in chronic kidney disease Current Visit: No Status: Chronic HGB 9.9 on admission Continue to monitor Qualifiers: Chronic kidney disease stage: on chronic dialysis Qualified Code(s): N18.6 - End stage renal disease; D63.1 - Anemia in chronic kidney disease; D63.1 - Anemia in chronic kidney disease; Z99.2 - Dependence on renal dialysis; Z99.2 - Dependence on renal dialysis; Z99.2 - Dependence on renal dialysis; Z99.2 - Dependence on renal dialysis (4) Closed left hip fracture Current Visit: Yes Status: Acute Management per ortho Qualifiers: Encounter type: initial encounter Qualified Code(s): S72.002A - Fracture of unspecified part of neck of left femur, initial encounter for closed fracture (5) Fracture of right tibial plateau Current Visit: Yes Status: Acute Management per ortho Qualifiers: Encounter type: initial encounter Fracture type: closed Qualified Code(s) : S82.141A - Displaced bicondylar fracture of right tibia, initial encounter for closed fracture History of Present Illness - Reason for Consult Consult date: 09/03/17 end stage renal disease Requesting physician: David William - Chief Complaint Fall - History of Present Illness Ms. Eng is a 71yo female with a PMH of ESRD with HD on MWF, osteoporosis, and previous left BKA due to osteomyelitis who presented from home after she slide off the side of her bed this morning while getting ready for HD. In the ED , patient was found to have an acute traumatic closed angulated and impacted left subcapital femoral neck fracture and nondisplaced proximal tibia fracture and possible nondisplaced fracture of the right fibula. Past Med Surg Social Fam HX - Past Medical History Medical history: diabetes, dialysis, hypertension, renal disease, other Psychiatric history: anxiety, depression - Past Surgical History Surgical History: carotid endarterectomy, hysterectomy, orthopedic, other (LBKA , right hip), thyroidectomy, other - Social History Smoking Status: Never smoker Smokeless Tobacco Status: No Alcohol use: none Drug use: none - Family History Mother Adopted: No Family Member Ethnicity: Non- Living Status: Hx Family Cardiac Disorders: No Hx Family Respiratory Disorders: Yes Hx Family Cancer: Yes Hx Family GI Disorders: No Hx Family Endocrine Disorder: No Hx Family Neuromuscular Disorders: No Hx Family Neurologic Disorders: No Hx Family HEENT Disorders: No Hx Family Autoimmune Disorders: No Father Adopted: No Family Member Ethnicity: Non- Living Status: Hx Family Cardiac Disorders: Yes Hx Family Respiratory Disorders: Yes Hx Family Cancer: No Hx Family GI Disorders: No Hx Family Endocrine Disorder: Yes Hx Family Neuromuscular Disorders: No Hx Family Neurologic Disorders: Yes Hx Family HEENT Disorders: No Hx Family Autoimmune Disorders: No Medications and Allergies Acetaminophen [Tylenol] 1,000 mg PO HS PRN 10/09/16 [History] Lidocaine/Prilocaine [Emla] 1 appl TP ONCE PRN 10/09/16 [History] Clopidogrel [Plavix] 75 mg PO DAILY tablet 10/16/16 [Rx] DiphenhydraMINE [Benadryl] 25 mg PO HS PRN #10 02/05/17 [Rx] Gabapentin [Neurontin] 100 mg PO TID #30 02/05/17 [Rx] Citalopram [CeleXA] 20 mg PO DAILY 03/30/17 [History] Metoprolol [Lopressor] 25 mg PO BID 03/30/17 [History] Ondansetron HCl [Zofran] 4 mg PO TID #15 tablet 05/13/17 [Rx] Aspirin Enteric Coated [Aspirin EC] 81 mg PO DAILY #30 tablet 06/11/17 [Rx] Multivitamin [Multivitamins] 1 cap PO DAILY 09/03/17 [History] Sevelamer [Renvela] 3 tab PO TIDWM 09/03/17 [History] 3 Allergy/AdvReac Type Severity Reaction Status Date / Time Penicillins Allergy Hives Verified 09/03/17 10:29 Review of Systems Constitutional: frequent falls, lethargy, weakness, no chills, no fever(s) Nose, mouth and throat: no nasal congestion, no sore throat Cardiovascular: no chest pain, no dyspnea, no pedal edema Respiratory: no cough, no dyspnea, no excessive phlegm production Gastrointestinal: nausea, no abdominal pain, no diarrhea, no vomiting Genitourinary Female: no dysuria, no urinary frequency, no urinary urgency Musculoskeletal: deformity, limited range of motion, myalgias, radiating pain into limb Integumentary: no new lesions, no skin ulcer Neurological: weakness, no numbness, no tingling Exam - Vital Signs Vital signs: Initial Vital Signs Temp Pulse Resp BP Pulse Ox 97.7 F 75 16 192/77 98 09/03/17 06:06 09/03/17 06:06 09/03/17 06:06 09/03/17 06:06 09/03/17 06:06 - General Appearance General appearance: well-developed, well-nourished, appears started age, moderate distress EENT: PERRL, mucous membranes moist Neck: no JVD, supple Respiratory: clear Cardiology: holosystolic murmur, regular rate, regular rhythm - Dialysis Access Dialysis Vascular Access: Arteriovenous Fistula (RUE) thrill: Yes bruit: Yes Gastrointestinal: normoactive bowel sounds, no tenderness, no guarding, no organomegaly Integumentary: no rash, warm and dry Neurologic: alert and oriented x3 Musculoskeletal: deformities (LBKA), decreased ROM (left hip) Psychiatric: agitated, cooperative Results - Lab Results 09/03/17 08:50 09/03/17 08:50 Most recent lab results Calcium 9.3 mg/dL (8.6-10.3) 09/03/17 08:50 Consult Discharge Plan - Plan Referrals: Rudi Avila MD [Primary Care Provider] -
--- NOTE | 2017-09-03 11:04 | Orthopedic Consult Note ---
Date of Encounter: 09/03/17 Time of Encounter: 11:15 Assessment and Plan (1) Fracture of left femur Current Visit: Yes Status: Acute Discussed with Dr. Padilla and Dr. Regalado. Dr. Regalado agreeable to perform required surgery. Right proximal tibia fracture - knee immobilizer with wbtt to allow for fracture healing, appx 6 weeks minimum. Left hip - discussing IM nail vs hemiarthroplasty. After discussing with Dr. Regalado, patient consented for left hip hemiarthroplasty. NPO status midnight tonight Social work to assess for at home needs - patient may require placement to rehab given her bilateral lower extremity fractures. Medical stabilization for surgery. Thank you for this consultation. Please reach out with any questions or concerns. Qualifiers: Encounter type: initial encounter Femur location: neck Fracture type: closed Qualified Code(s): S72.002A - Fracture of unspecified part of neck of left femur, initial encounter for closed fracture (2) Fracture of right tibia Current Visit: Yes Status: Acute Qualifiers: Encounter type: initial encounter Tibia location: proximal Fracture type : closed Fracture morphology: unspecified fracture morphology Qualified Code (s): S82.101A - Unspecified fracture of upper end of right tibia, initial encounter for closed fracture History of Present Illness Chief complaint: bilateral leg pain HPI: Ms. Eng is a 71 year old female presenting to [facility] ED after a fall. She has a history of nonhealing right calcaneal fracture ongoing for appx the last [address] Tijerina. 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 Anderson. She has a history of Right IM nailing 05/[address] Regalado. She has CKD with dialysis and follows with [facility]. Patient and spouse admit she has been nonambulatory for the past 3 months secondary to sustaining a right calcaneal fracture during physical therapy at home after her left leg amputation. She and her spouse state that she was fitted with an orthosis for the right foot and ankle to allow for ambulation. She was to be fitted for prosthesis for the left leg in the upcoming weeks to begin rehab to begin walking per patient and spouse. Patient and spouse are requesting Dr. Regalado to perform any required surgery. On exam patient is laying comfortably in bed, spouse at bedside, patient being placed on telemetry. Patient observed to have left leg below the knee amputation with well healed wound. The left hip has no ecchymosis or erythema and is tender to palpation over the greater trochanter. Left leg is internally rotated. Right lower extremity inspection reveals swelling to mid shaft of right leg. No ecchymosis or erythema noted to this area. This area is mildly tender to palpation. Patient has no sensation with palpation light or deep to right foot. Right thigh unremarkable on exam. Pulses intact to right posterior tibial. XR/XR femur LT IMPRESSION: 1. Acute subcapital left femoral neck fracture with impaction and mild superolateral displacement. 2. Marked bony demineralization. 3. Left below-knee amputation with associated heterotopic ossification. D/ / Rolando Woodruff MD / Rolando Woodruff MD Interpreting Provider: Rolando Woodruff MD R #: [id number] XR/XR tibia fibula RT IMPRESSION: Study limited by severe osteopenia. Nondisplaced fracture proximal tibia with visualized fracture line noted extending inferior to the tibial tuberosity. No definite intra-articular extension noted on limited imaging. Possible nondisplaced fracture of the fibula. Overlying soft tissue swelling. D/ / 09/03/2017 09:06:45 Que Alexander MD / radha Interpreting Provider: Que Alexander MD Discussed with Dr. Padilla and Dr. Regalado. Dr. Regalado agreeable to perform required surgery. Right proximal tibia fracture - knee immobilizer with wbtt to allow for fracture healing, appx 6 weeks minimum. Left hip - discussing IM nail vs hemiarthroplasty. After discussing with Dr. Regalado, patient consented for left hip hemiarthroplasty. NPO status midnight tonight Social work to assess for at home needs - patient may require placement to rehab given her bilateral lower extremity fractures. Medical stabilization for surgery. Thank you for this consultation. Please reach out with any questions or concerns. Past Med Surg Social Fam HX - Past Medical History Medical history: diabetes, dialysis, hypertension, renal disease, other Psychiatric history: anxiety, depression - Past Surgical History Surgical History: carotid endarterectomy, hysterectomy, orthopedic, other, thyroidectomy, other - Social History Smoking Status: Never smoker Smokeless Tobacco Status: No Alcohol use: none Drug use: none - Family History Mother Adopted: No Family Member Ethnicity: Non- Living Status: Hx Family Cardiac Disorders: No Hx Family Respiratory Disorders: Yes Hx Family Cancer: Yes Hx Family GI Disorders: No Hx Family Endocrine Disorder: No Hx Family Neuromuscular Disorders: No Hx Family Neurologic Disorders: No Hx Family HEENT Disorders: No Hx Family Autoimmune Disorders: No Father Adopted: No Family Member Ethnicity: Non- Living Status: Hx Family Cardiac Disorders: Yes Hx Family Respiratory Disorders: Yes Hx Family Cancer: No Hx Family GI Disorders: No Hx Family Endocrine Disorder: Yes Hx Family Neuromuscular Disorders: No Hx Family Neurologic Disorders: Yes Hx Family HEENT Disorders: No Hx Family Autoimmune Disorders: No Medications and Allergies Acetaminophen [Tylenol] 1,000 mg PO HS PRN 10/09/16 [History] Lidocaine/Prilocaine [Emla] 1 appl TP ONCE PRN 10/09/16 [History] Clopidogrel [Plavix] 75 mg PO DAILY tablet 10/16/16 [Rx] DiphenhydraMINE [Benadryl] 25 mg PO HS PRN #10 02/05/17 [Rx] Gabapentin [Neurontin] 100 mg PO TID #30 02/05/17 [Rx] Citalopram [CeleXA] 20 mg PO DAILY 03/30/17 [History] Metoprolol [Lopressor] 25 mg PO BID 03/30/17 [History] Ondansetron HCl [Zofran] 4 mg PO TID #15 tablet 05/13/17 [Rx] Aspirin Enteric Coated [Aspirin EC] 81 mg PO DAILY #30 tablet 06/11/17 [Rx] Multivitamin [Multivitamins] 1 cap PO DAILY 09/03/17 [History] Sevelamer [Renvela] 3 tab PO TIDWM 09/03/17 [History] 3 Allergy/AdvReac Type Severity Reaction Status Date / Time Penicillins Allergy Hives Verified 09/03/17 10:29 All Systems Reviewed: A 10-system review of systems was performed and is negative for pertinent findings except as documented above in the HPI. Physical Exam - Constitutional Vitals: Temp Pulse Resp BP Pulse Ox 97.7 F 75 16 192/77 98 09/03/17 06:06 09/03/17 06:06 09/03/17 06:06 09/03/17 06:06 09/03/17 06:06 Results - Labs Result Diagrams: 09/03/17 08:50 09/03/17 08:50 Labs: Abnormal lab results WBC 14.2 K/mcL (4.3-11.1) H 09/03/17 08:50 RBC 3.15 M/mcL (3.82-4.97) L 09/03/17 08:50 Hgb 9.9 g/dL (11.5-15.4) L 09/03/17 08:50 Hct 30.8 % (35.3-44.9) L 09/03/17 08:50 Neutrophils # 12.9 K/mcL (1.6-8.9) H 09/03/17 08:50 Potassium 6.0 mEq/L (3.5-5.1) H 09/03/17 08:50 BUN 45 mg/dL (8-23) H 09/03/17 08:50 Creatinine 7.57 mg/dL (0.60-1.20) H 09/03/17 08:50 Est GFR ( Amer) 6 (> 60) L 09/03/17 08:50 Est GFR (Non-Af Amer) 5 (> 60) L 09/03/17 08:50 Glucose 119 mg/dL (70-105) H 09/03/17 08:50 Urine Clarity Turbid (Clear) A 09/03/17 09:12 Ur Specific Garvin 1.008 (1.010-1.025) L 09/03/17 09:12 Urine Protein >=300 mg/dL (Neg-Trace) H 09/03/17 09:12 Urine Glucose (UA) 100 mg/dL (Normal) H 09/03/17 09:12 Urine Blood Moderate (Negative) H 09/03/17 09:12 Ur Leukocyte Esterase Moderate (Negative) H 09/03/17 09:12 Urine Microscopic RBC 3-5 per hpf (0-3) H 09/03/17 09:12 Urine Microscopic WBC 50-100 per hpf (0-3) H 09/03/17 09:12 Ur Squamous Epith Cells Many per lpf (None-Few) H 09/03/17 09:12 Urine Bacteria Moderate per hpf (None-Few) H 09/03/17 09:12 Urine Yeast Few per hpf (None Seen) H 09/03/17 09:12 All other labs normal. Consult Discharge Plan - Plan Referrals: Rudi Avila MD [Primary Care Provider] -
[2017-09-03] MEDS ORDERED: 0.9 % Sodium Chloride 250 ML IVC PRN (11:12)
[2017-09-03] MEDS ORDERED: 0.9 % Sodium Chloride 1,000 ML PRIME SCH (11:15)
[2017-09-03] MEDS ORDERED: *HR* Morphine 2 MG/ML SYRINGE IVP PRN (11:39)
[2017-09-03] MEDS ORDERED: Acetaminophen IV 1,000 MG/100 ML INFUS..BTL IVPB ONE (11:42)
[2017-09-03] MEDS ORDERED: Naloxone 0.4 MG/ML INJ IVP PRN (11:58)
[2017-09-03] MEDS ORDERED: *HR* Dextrose 50 % in Water (Syg) 50 ML SYRINGE IVP PRN (12:51)
[2017-09-03] MEDS ORDERED: Dextrose Gel 15 GM/37.5 ML TUBE PO PRN ×2 (12:51)
[2017-09-03] MEDS ORDERED: D5% in Water 1,000 ML IVC PRN (12:51)
[2017-09-03] MEDS: Ondansetron 4 MG/2 ML VIAL IVP SCH ×2 (13:08→17:29)
--- NOTE | 2017-09-03 13:37 | Electrocardiograph Report ---
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
[2017-09-03] MEDS ORDERED: 0.9 % Sodium Chloride 2,000 ML ONE (14:05)
--- NOTE | 2017-09-03 14:23 | Internal Med History&Physical ---
<Cristina Tirado S - Last Filed: 09/03/17 14:32> Date of Encounter: 09/03/17 Time of Encounter: 14:16 Assessment and Plan (1) Closed left hip fracture Current visit: Yes Status: Acute 71-year-old female status post fall with left closed hip fracture and right tibial plateau fracture. CT of the head is negative, cervical spine nothing acute Orthopedic consult Nothing by mouth after midnight for pending surgery Pain control Sensitive to some narcotics with nausea and vomiting Morphine as needed IV acetaminophen 1 dose Qualifiers: Encounter type: initial encounter Qualified Code(s): S72.002A - Fracture of unspecified part of neck of left femur, initial encounter for closed fracture (2) Fracture of right tibial plateau Current visit: Yes Status: Acute See above plan Qualifiers: Encounter type: initial encounter Fracture type: closed Qualified Code(s) : S82.141A - Displaced bicondylar fracture of right tibia, initial encounter for closed fracture (3) Hyperkalemia Current visit: Yes Status: Acute Calcium Glucotrol administered 1 dose Hemodialysis today Monitor levels in the a.m. 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 Continue home medications Qualifiers: Laterality: unspecified laterality Qualified Code(s): I77.9 - Disorder of arteries and arterioles, unspecified (7) IDDM (insulin dependent diabetes mellitus) Current visit: Yes Status: Acute Diabetic diet Accu-Cheks before meals and at bedtime Low-dose coverage scale (8) Nausea and vomiting Current visit: Yes Status: Acute Patient became nauseated after receiving narcotics in the ER and then vomited on arrival to the floor Changed narcotic medication to morphine Added Zofran as needed Qualifiers: Vomiting type: unspecified Vomiting Intractability: unspecified Qualified Code(s): R11.2 - Nausea with vomiting, unspecified (9) Elevated troponin Current visit: No Status: Chronic Patient has acutely elevated troponin levels evidenced by reviewing past charts Internal Medicine - H&P: HPI Chief complaint: s/p fall with bilateral leg pain Admitted From: Emergency Dept Plans for Post Hospital Care: Home History of present illness: Ms. Eng is a 71 year old female who presented to the emergency room this morning with complaints of bilateral leg pain status post fall. The patient related that she was seen on the side of the bed putting on her shoes and she slipped to the floor landing on her side. She does not recall if she hit her head. She presented to the ED and was found to have a left closed hip fracture right tibia plateau fracture. Head CT was reviewed as stable and with nothing acute cervical spine was also completed and reviewed reported as nothing acute. Karthik has a history of osteopenia and osteoporosis, diabetes mellitus and end- stage renal disease, hemodialysis Sunday depending, anxiety, depression, osteomyelitis, dyslipidemia and hypertension. Surgical history is significant for a left BKA secondary to osteomyelitis, nonhealing right calcaneal fracture and right IM nailing. She and her are in room to a 47. She is lying in the bed and is having some discomfort as pain medicine given the ER is no longer effective. She also had a large emesis on arrival to the floor. She denies any other discomfort at this time, she denies any recent illness, fever, chills, abdominal pain, chest pain, headache, syncope, or shortness of breath. The orthopedic service discussed a plan with the patient and family. She will have dialysis today as per nephrology service. Karthik and her are currently with the current plan of care and had no questions at this time. Pain control will be a priority. Past Med Surg Social Fam HX - Past Medical History Source: patient, old records reviewed, obtained from family Medical history: diabetes, dialysis, hypertension, osteoporosis, renal disease, other Psychiatric history: anxiety, depression - Past Surgical History Surgical History: carotid endarterectomy, hysterectomy, orthopedic, other (LBKA , right hip), thyroidectomy, other - Social History Smoking Status: Never smoker Smokeless Tobacco Status: No Alcohol use: none Drug use: none Occupational status: retired Current living situation: Home, With Family - Family History Mother Adopted: No Family Member Ethnicity: Non- Living Status: Hx Family Cardiac Disorders: No Hx Family Respiratory Disorders: Yes Hx Family Cancer: Yes Hx Family GI Disorders: No Hx Family Endocrine Disorder: No Hx Family Neuromuscular Disorders: No Hx Family Neurologic Disorders: No Hx Family HEENT Disorders: No Hx Family Autoimmune Disorders: No Father Adopted: No Family Member Ethnicity: Non- Living Status: Hx Family Cardiac Disorders: Yes Hx Family Respiratory Disorders: Yes Hx Family Cancer: No Hx Family GI Disorders: No Hx Family Endocrine Disorder: Yes Hx Family Neuromuscular Disorders: No Hx Family Neurologic Disorders: Yes Hx Family HEENT Disorders: No Hx Family Autoimmune Disorders: No - Additional Family History Additional family history: reviewed and noncontributory to this admission Internal Medicine - H&P: Meds Acetaminophen [Tylenol] 1,000 mg PO HS PRN 10/09/16 [History] Lidocaine/Prilocaine [Emla] 1 appl TP ONCE PRN 10/09/16 [History] Clopidogrel [Plavix] 75 mg PO DAILY tablet 10/16/16 [Rx] DiphenhydraMINE [Benadryl] 25 mg PO HS PRN #10 02/05/17 [Rx] Gabapentin [Neurontin] 100 mg PO TID #30 02/05/17 [Rx] Citalopram [CeleXA] 20 mg PO DAILY 03/30/17 [History] Metoprolol [Lopressor] 25 mg PO BID 03/30/17 [History] Ondansetron HCl [Zofran] 4 mg PO TID #15 tablet 05/13/17 [Rx] Aspirin Enteric Coated [Aspirin EC] 81 mg PO DAILY #30 tablet. 06/11/17 [Rx] Multivitamin [Multivitamins] 1 cap PO DAILY 09/03/17 [History] Sevelamer [Renvela] 3 tab PO TIDWM 09/03/17 [History] 3 Allergy/AdvReac Type Severity Reaction Status Date / Time Penicillins Allergy Hives Verified 09/03/17 10:29 All Systems PM: A 10-system review of systems was performed and is negative for pertinent findings except as documented above in the HPI. - Constitutional Constitutional: falls, no chills, no fever(s), no night sweats - EENT Eyes: no change in vision, no discharge, no pain, no photophobia Ears: no ear discharge, no ear pain, no tinnitus Nose, mouth and throat: no dysphagia, no nasal discharge, no neck pain, no sore throat - Cardiovascular Cardiovascular ROS IM: no chest pain, no diaphoresis, no dyspnea, no lightheadedness, no palpitations, no syncope - Respiratory Respiratory: no cough, no dyspnea, no wheezing, no excessive phlegm production - Gastrointestinal Gastrointestinal: nausea, vomiting, no abdominal pain, no diarrhea, no hematemesis, no hematochezia, no melena - Genitourinary Genitourinary: no change in urinary stream, no dysuria, no flank pain, no hematuria - Musculoskeletal Musculoskeletal ROS IM: as per HPI, limited range of motion, other, no numbness , no tingling Additional comments: Pain in left hip and right knee with swelling Left BKA - Integumentary Integumentary IM: no rash, no unusual bruising - Neurological Neurological ROS: no confusion, no convulsions, no focal weakness, no numbness, no tingling, no tremor(s) - Hematologic/Lymphatic Hematologic/Lymphatic: no easy bruising - Constitutional Vitals: Temp Pulse Resp BP Pulse Ox 98.3 F 84 20 180/78 99 09/03/17 11:17 09/03/17 11:17 09/03/17 11:17 09/03/17 11:17 09/03/17 11:17 General appearance: Present: mild distress, A&O X 3, pleasant, answers questions appropriately - Head Head exam: Present: atraumatic, normocephalic - Eye Eye exam: Present: conjuntiva pink, sclera anicteric - Neck Neck exam general surgery: Present: supple, trachea midline. Absent: lymphadenopathy - Respiratory Respiratory exam: Present: CTAB. Absent: accessory muscle use, rales, rhonchi, wheezes - Cardiovascular Cardiovascular exam: Present: RRR, +S1, +S2. Absent: diastolic murmur, gallop, rubs, systolic murmur - GI/Abdominal GI/Abdominal exam: Present: normal bowel sounds, soft, no peritoneal signs. Absent: distended, tenderness - Extremities Exam Extremities exam: Present: warm, radial pulses palpable and symmetrical. Absent : calf tenderness, cyanotic, pedal edema Additional comments: lt BKA, tenderness left hip, right knee tender - Neurological Exam Neurological exam: Present: oriented X3, no focal deficits. Absent: pronater drift, facial droop, speech deficit - Skin Skin exam: Present: dry, intact, warm Additional comments: av fistula with good bruit and thrill Internal Med - H&P Results - Labs CBC & Chem 7: 09/03/17 08:50 09/03/17 08:50 <Foster Tristan P - Last Filed: 09/03/17 18:27> Date of Encounter: 09/03/17 Internal Medicine - H&P: HPI History of present illness: Ms. Eng is a 71 year old female All Systems PM: A 10-system review of systems was performed and is negative for pertinent findings except as documented above in the HPI. - Constitutional Vitals: Temp Pulse Resp BP Pulse Ox 97.9 F 84 16 109/52 99 09/03/17 18:15 09/03/17 11:17 09/03/17 18:15 09/03/17 18:15 09/03/17 11:17 Internal Med - H&P Results - Labs CBC & Chem 7: 09/03/17 08:50 09/03/17 08:50 - Attending Attestation I examined this patient and my medical decision-making was reviewed with the Resident Physician/VESSEL SLAG WORKER. I agree with the documented findings, disposition and treatment plan as described except to the extent set forth below.
[2017-09-03 15:48] LABS: Hepatitis B Surface Antigen Nonreactive (Nonreactive)
--- NOTE | 2017-09-03 15:50 | Infectious Disease Consult ---
Date of Encounter: 09/03/17 Time of Encounter: 15:47 Assessment and Plan (1) Leukocytosis Status: Acute Assessment and plan: WBC elevated at 14.2 with normal differential. The patient does not have any clinical indications that she has an active infection. This leukocytosis is likely reactive, secondary to her fractures. Continue to trend. Monitor for fevers, worsening leukocytosis, tachycardia, etc. No indication to start scheduled antibiotics, but would recommend routine pre- op antibiotics per ortho. Qualifiers: Leukocytosis type: unspecified Qualified Code(s): D72.829 - Elevated white blood cell count, unspecified (2) History of osteomyelitis Status: Acute Assessment and plan: Previously diagnosed with left great toe OM status post amputation in September 2016. Subsequently developed an unsalvageable ulcer and OM to the left calcaneus. Status post left BKA January 2017. The patient had some delayed wound healing, but infection-related complications post-op. Clinically, the surgical site looks well-healed and without evidence of infection. (3) Status post below knee amputation of left lower extremity Status: Acute Assessment and plan: Status post left BKA 01/[address] Anderson. Post-op course complicated by delayed wound healing, but no evidence of infection post-op. Clinically, the wound looks good now and is well-healed. (4) CAD (coronary artery disease) Status: Chronic Qualifiers: Coronary Disease-Associated Artery/Lesion type: [place] artery [place] vs. transplanted heart: [place] heart Associated angina: with stable angina Qualified Code(s): I25.118 - Atherosclerotic heart disease of [place] coronary artery with other forms of angina pectoris (5) Closed left hip fracture Status: Acute Assessment and plan: Status post fall today. Left femur fracture shows findings consistent with a left femoral neck fracture with impaction and mild displacement. With her periods consulted and following. Plan to take the patient to the OR tomorrow. At this time, I see no indication of active infection that would limit the patient's ability to go to surgery. Additionally, I do not feel she needs any additional antibiotics other than the standard preop antibiotic. Qualifiers: Encounter type: initial encounter Qualified Code(s): S72.002A - Fracture of unspecified part of neck of left femur, initial encounter for closed fracture (6) Fracture of right tibial plateau Status: Acute Assessment and plan: Right knee/tib-fib x-ray showed a nondisplaced fracture of the proximal tibia and nondisplaced fibula fracture. Or throat consulted and following. This fracture is nonoperative and the patient will be placed in a knee immobilizer. Qualifiers: Encounter type: initial encounter Fracture type: closed Qualified Code(s) : S82.141A - Displaced bicondylar fracture of right tibia, initial encounter for closed fracture (7) Hyperkalemia Status: Acute Assessment and plan: Likely secondary to missing dialysis yesterday. Management per the nephrology and primary teams. (8) ESRD (end stage renal disease) on dialysis Status: Chronic Assessment and plan: Typically gets dialysis Sunday, Sunday, and Sunday. Missed dialysis today due to her fall. Nephrology consulted and following. Infectious Disease HPI - Data of Consult Patient: known to practice within the last 3 years Consult date: 09/03/17 Requesting Physician: Jennifer Huynh MD Primary Care Provider: Rudi Avila MD - Consult Narrative Reason for consult: Surgical Clearance History of present illness: Ms. 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 The patient was noted to the hospital September 03 for right tibial plateau and left hip fracture. We are consulted September 03 for surgical clearance regarding previous history of infections. Briefly, the patient's a 71-year-old female, well-known to the infectious disease service as we will consult on her case back in September 2016. At that time, the patient was noted to have staph aureus bacteremia that was positive for the Medicaid gene, but was oxacillin sensitive. This was likely secondary to a left great toe osteomyelitis with gangrene. She had a toe amputated and was treated with a 6 week course of IV vancomycin with dialysis. After that, the patient subsequently developed a left calcaneus osteomyelitis that was unsalvageable and she underwent a left BKA in January 2017. She had some issues with healing of the wound, but states that recently the wound didn't completely heal and she has not had any issues with this since then. According to the patient, on the day of admission she was sitting on the side of the bed and slid out of bed. She reported pain to the left hip and right lower leg. She presented to the emergency department. Upon arrival, the patient was hypertensive, but was afebrile and otherwise hemodynamically stable. She did have a leukocytosis with normal differential. Chest that hyperkalemia. A urinalysis was obtained and was positive for white blood cells, but did have many epithelial cells. She underwent a C-spine CT that was negative as well as a head CT that was negative. She had a chest x-ray that was negative as well. A right femur x-ray was normal. She had a left femur x-ray that showed a left femoral neck fracture with impaction and mild displacement. A right knee/tib- fib x-ray also revealed a nondisplaced fracture of the proximal tibia and nondisplaced fibula fracture. She had a pelvis x-ray that confirmed the left femoral neck fracture, but was otherwise normal. She was admitted to the hospital for surgical management of her left hip fracture. We've been asked to evaluate and make further recommendations. During my exam today, the patient states that she was in her usual state of health up until today. She states she did not get dizzy or lightheaded that potentiated her fall. She states she just slid out of the bed while she was trying to get ready for dialysis. She denies any fevers or chills or rigors. She denies any headache or neck pain. She denies any chest pain, shortness of breath, or cough. She denies any nausea, vomiting, diarrhea, or constipation. She denies any abdominal pain or urinary complaints or appetite changes. She currently complains of pain in her left hip and right lower leg. She denies any oral thrush or new skin lesions. She states that up until a couple of weeks ago her left stump is still not completely healed, but it seems to be healed at this time. She denies any weakness or dizziness or lightheadedness. She is not currently on any antibiotics. The patient lives at home with her . She does not work outside the home. She does go to dialysis every Sunday, Sunday, and Sunday. She denies any tobacco, alcohol, or illicit drug use. CC: Jennifer Huynh MD Past Med Surg Social Fam HX - Past Medical History Attestation: Yes The following information was validated with the patient. Source: patient, old records reviewed, nursing notes reviewed Medical history: diabetes, dialysis, hypertension, osteoporosis, renal disease ( ESRD on HD M/W/F), other (Calciphylaxis, Left great toe OM s/p left BKA, right calcaneus fracture.) Psychiatric history: anxiety, depression - Past Surgical History Surgical History: carotid endarterectomy, hysterectomy, orthopedic, other (LBKA , right hip), thyroidectomy, other - Social History Smoking Status: Never smoker Smokeless Tobacco Status: No Alcohol use: none Drug use: none Occupational status: unemployed Current living situation: Home, With Family Activity Level: Independent ambulation Recent Out of Country Travel Within the Last 8 Weeks: No Exposure or Possible Exposure to Illness During Travel: No - Family History Mother Adopted: No Family Member Ethnicity: Non- Living Status: Hx Family Cardiac Disorders: No Hx Family Respiratory Disorders: Yes Hx Family Cancer: Yes Hx Family GI Disorders: No Hx Family Endocrine Disorder: No Hx Family Neuromuscular Disorders: No Hx Family Neurologic Disorders: No Hx Family HEENT Disorders: No Hx Family Autoimmune Disorders: No Father Adopted: No Family Member Ethnicity: Non- Living Status: Hx Family Cardiac Disorders: Yes Hx Family Respiratory Disorders: Yes Hx Family Cancer: No Hx Family GI Disorders: No Hx Family Endocrine Disorder: Yes Hx Family Neuromuscular Disorders: No Hx Family Neurologic Disorders: Yes Hx Family HEENT Disorders: No Hx Family Autoimmune Disorders: No Infectious Disease-CN:Meds Acetaminophen [Tylenol] 1,000 mg PO HS PRN 10/09/16 [History] Lidocaine/Prilocaine [Emla] 1 appl TP ONCE PRN 10/09/16 [History] Clopidogrel [Plavix] 75 mg PO DAILY tablet 10/16/16 [Rx] DiphenhydraMINE [Benadryl] 25 mg PO HS PRN #10 02/05/17 [Rx] Gabapentin [Neurontin] 100 mg PO TID #30 02/05/17 [Rx] Citalopram [CeleXA] 20 mg PO DAILY 03/30/17 [History] Metoprolol [Lopressor] 25 mg PO BID 03/30/17 [History] Ondansetron HCl [Zofran] 4 mg PO TID #15 tablet 05/13/17 [Rx] Aspirin Enteric Coated [Aspirin EC] 81 mg PO DAILY #30 tablet. 06/11/17 [Rx] Multivitamin [Multivitamins] 1 cap PO DAILY 09/03/17 [History] Sevelamer [Renvela] 3 tab PO TIDWM 09/03/17 [History] 3 Allergy/AdvReac Type Severity Reaction Status Date / Time Penicillins Allergy Hives Verified 09/03/17 10:29 All systems: reviewed and no additional remarkable complaints except as stated Exam - Constitutional Vitals: Temp Pulse Resp BP Pulse Ox 98.1 F 84 18 134/67 99 09/03/17 14:30 09/03/17 11:17 09/03/17 14:30 09/03/17 15:30 09/03/17 11:17 General appearance: average body habitus, cooperative, no acute distress - Head Head exam: Present: atraumatic, normal inspection, normocephalic - Eye Eye exam: Present: EOMI, normal appearance, PERRL Pupils: Present: normal accommodation - ENT ENT exam: Present: mucous membranes moist - Neck Neck exam: Present: normal inspection - Respiratory Respiratory exam: Present: CTAB. Absent: rales, respiratory distress, rhonchi, wheezes - Cardiovascular Cardiovascular exam: Present: RRR, +S1, +S2 - GI/Abdominal GI/Abdominal exam: Present: normal bowel sounds, soft. Absent: distended, tenderness - Extremities Exam Extremities exam: Present: tenderness (RLE, left hip). Absent: joint swelling, pedal edema Additional comments: Left hip tenderness noted with palpation. Right lower leg tenderness noted with palpation. Left BKA stump with well-healed surgical scar without redness, warmth, or drainage. - Neurological Exam Neurological exam: Present: alert, oriented X3, no focal deficits - Psychiatric Psychiatric exam: Present: normal affect, normal mood - Skin Skin exam: Present: dry, intact, normal color, warm Infectious Disease CN: Results - Labs CBC & Chem 7: 09/03/17 08:50 09/03/17 08:50 Consult Discharge Plan - Plan Referrals: Rudi Avila MD [Primary Care Provider] - - Attending Attestation I examined this patient and my medical decision-making was reviewed with the Resident Physician. I agree with the documented findings, disposition and treatment plan as described except to the extent set forth below. 71 year old female with PMH of ESRD and osteomyelitis of left calcaneous s/p left BKA in January, came to the ED on 09/03/17 s/p fall, admitted with right tibial plateau fracture and left femoral neck fracture, we are consulted on for surgical clearance because of previous infection. 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 Toe healed and then in November had a heel ulcer and pt ended up with a BKA due to failed treatment in January. This time, pt is in usual state of health with no signs or clinical picture of active infection. Patient fell down secondary to slipping out of bed. No syncopal episode and no signs of head trauma or altered mental status. Since admission patient has been afebrile. No source criteria other than mild leukocytosis was likely reactive the fall and fractures. Urinalysis is positive but she dialysis patient. No urinary complaints. Not currently on any antibiotics. At this point is not clinical picture and the patients history and the fact that she did have a BKA which is the source of infection, I dont see any high- risk for surgery. I would treat with the preop vancomycin instead of the nafcillin or cefazolin per protocol. Also patient needs to be in contact isolation.
[2017-09-03] MEDS ORDERED: *HR* HYDROmorphone (PF) 1 MG/ML SYRINGE IVP PRN (15:51)
[2017-09-03] MEDS: Insulin LISPRO 300 UNITS/3 ML VIAL SQ SCH ×2 (17:27→22:35)
[2017-09-03] MEDS: Gabapentin 100 MG CAPSULE PO SCH ×2 (17:29→21:38)
[2017-09-03] MEDS ORDERED: *HR* HYDROcodone/Acet 5/325 mg TABLET PO ONE (23:48)
[2017-09-04] MEDS: Ondansetron 4 MG/2 ML VIAL IVP SCH ×4 (00:47→18:42)
[2017-09-04 00:51] LABS: Basophils % 0.3 %; Eosinophils # 0.1 K/mcL (0.0-0.6); Eosinophils % 0.5 %; Hematocrit 29.5 % (35.3-44.9); Hemoglobin 9.7 g/dL (11.5-15.4); Immature Granulocytes % 0.5 % (0-4); Lymphocytes # 0.5 K/mcL (0.6-4.6); Lymphocytes % 4.6 %; Mean Corpuscular HGB Conc 32.9 g/dL (31.6-35.5); Mean Corpuscular Hemoglobin 31.5 pg (28.0-33.3); Mean Corpuscular Volume 95.8 fL (83.0-100.0); Mean Platelet Volume 9.4 fL (9.4-12.4); Monocytes # 0.5 K/mcL (0.0-1.3); Monocytes % 5.1 %; Neutrophils # 9.2 K/mcL (1.6-8.9); Platelet Count 160 K/mcL (140-400); Red Blood Count 3.08 M/mcL (3.82-4.97); Red Cell Distribution Width 14.1 % (11.5-14.5)
[2017-09-04 00:57] LABS: INR 1.1
[2017-09-04 02:10] LABS: Albumin 3.4 g/dL (3.5-5.7); Bilirubin,Total 0.6 mg/dL (0.3-1.0); Calcium 9.2 mg/dL (8.6-10.3); Globulin 3.4 g/dL (2.4-3.5); Magnesium 1.8 mg/dL (1.6-2.6); Phosphorous 5.4 mg/dL (2.7-4.5); Total Protein 6.8 g/dL (6.4-8.9)
--- NOTE | 2017-09-04 02:29 | Event Note ---
Date of Encounter: 09/04/17 Time of Encounter: 02:15 Relieved page regarding elevated troponin of 0.20, compared with 3 previous readings throughout the day of < 0.03. Patient was seen and examined in her room. She was awake, complaining only of hip and leg pain. She denied significant chest pain, SOB, nausea, or any other complaint. Vital signs stable , HR 90s with regular rhythm, BP 150s/70s. Patient has known ESRD and was dialyzed earlier today. Past troponins have ranged from 0.20s to 2.0s on previous visits. Suspect this is most likely related to the ESRD, but we have ordered stat EKG which showed no significant changes and another troponin for 0700 (6 hours after previous). If there is still suspicion of cardiac involvement at that time, cardiology may be consulted.
--- NOTE | 2017-09-04 07:30 | Nephrology Progress Note ---
Date of Encounter: 09/04/17 Time of Encounter: 07:30 - Assessment and Plan (1) Elevated troponin Current Visit: Yes Status: Chronic Serial troponins < 0.03, 0.20, 0.44 in the setting of ESRD and CAD EKG reveals NSR at 74 bpm, moderate T-wave abnormality, possible inferior myocardial infarction Cardiology consulted for dynamic troponin and surgical clearance (2) ESRD (end stage renal disease) on dialysis Current Visit: Yes Status: Chronic Continue HD as scheduled MFW Avoid nephrotxins (3) Hyperkalemia Current Visit: Yes Status: Resolved K 6.0 --> 4.0 EKG reveals NSR, prominent T waves in V1 and V2 compared to previous EKG Repeat EKG reveals NSR at 74 bpm, moderate T-wave abnormality, possible inferior myocardial infarction Patient given Calcium gluconate in the ED Telemetry monitoring Continue HD as scheduled MWF (4) Hyperphosphatemia Current Visit: Yes Status: Chronic Continue Renvela (5) Anemia in chronic kidney disease Current Visit: No Status: Chronic HGB 9.9 --> 9.7 Continue to monitor Qualifiers: Chronic kidney disease stage: on chronic dialysis Qualified Code(s): N18.6 - End stage renal disease; D63.1 - Anemia in chronic kidney disease; D63.1 - Anemia in chronic kidney disease; Z99.2 - Dependence on renal dialysis; Z99.2 - Dependence on renal dialysis; Z99.2 - Dependence on renal dialysis; Z99.2 - Dependence on renal dialysis (6) Closed left hip fracture Current Visit: Yes Status: Acute Management per ortho Qualifiers: Encounter type: initial encounter Qualified Code(s): S72.002A - Fracture of unspecified part of neck of left femur, initial encounter for closed fracture (7) Fracture of right tibial plateau Current Visit: Yes Status: Acute Management per ortho Qualifiers: Encounter type: initial encounter Fracture type: closed Qualified Code(s) : S82.141A - Displaced bicondylar fracture of right tibia, initial encounter for closed fracture Subjective Principal diagnosis: ESRD Interval history: Patient seen and examined. Patient reports CP lasting 15 minutes yesterday and her troponin level has increased to 0.44 overnight. Patient reports her hip pain is poorly controlled and is scheduled for hip arthoplasty this afternoon. Objective - Vital Signs Vital signs: Vital Signs Temp Pulse Resp BP Pulse Ox 09/04/17 07:07 98.5 F 83 16 158/79 96 09/04/17 05:24 98.2 F 81 15 144/77 95 09/04/17 00:18 98.6 F 95 16 152/74 96 09/03/17 21:42 97.6 F 92 15 154/76 95 09/03/17 18:15 97.9 F 16 109/52 09/03/17 18:00 98/45 09/03/17 17:45 91/48 09/03/17 17:30 94/46 09/03/17 17:15 102/49 09/03/17 17:00 98/48 09/03/17 16:45 100/48 09/03/17 16:30 113/51 09/03/17 16:15 118/60 09/03/17 16:00 126/61 09/03/17 15:45 115/60 09/03/17 15:30 134/67 09/03/17 15:15 138/70 09/03/17 15:00 135/66 09/03/17 14:45 135/67 09/03/17 14:30 98.1 F 18 149/71 Intake and Output 09/03/17 09/03/17 09/04/17 15:59 23:59 07:59 Intake Total 600 / 600 Output Total 2600 / 2600 Balance 600 / 600 -2600 / -2600 Intake: Intake, Rinseback and Flushes 600 / 600 Output: Urine 0 / 0 Total Dialysis (HD) Output 2600 / 2600 Other: Weight 72 kg Blood Glucose* 148 158 Hemodialysis Net Fluid Removed 1289 2000 (mL) Patient Weight 09/04/17 23:59 Weight 72 kg - General Appearance General appearance: Present: well-developed, well-nourished, appears started age EENT: Present: PERRL, mucous membranes dry Neck: Present: no JVD, supple Additional Comments: decreased breath sounds bilaterally Cardiology: Present: holosystolic murmur, regular rate, regular rhythm Dialysis Vascular Access: Arteriovenous Fistula thrill: Yes bruit: Yes Gastrointestinal: Present: normoactive bowel sounds, no tenderness, no guarding Integumentary: Present: no rash, warm and dry Neurologic: Present: no focal deficit, alert and oriented x3 Musculoskeletal: Present: deformities, erythema Additional Comments: LBKA Psychiatric: Present: mood/affect appropriate, cooperative - Lab 09/04/17 00:45 09/04/17 00:45 Most recent lab results Calcium 9.2 mg/dL (8.6-10.3) 09/04/17 00:45 Phosphorus 5.4 mg/dL (2.7-4.5) H 09/04/17 00:45 Magnesium 1.8 mg/dL (1.6-2.6) 09/04/17 00:45 - Imaging Additional Comments: EKG reveals NSR at 74 bpm, moderate T-wave abnormality, possible inferior myocardial infarction Consult Discharge Plan - Plan Referrals: Rudi Avila MD [Primary Care Provider] -
[2017-09-04] MEDS: Insulin LISPRO 300 UNITS/3 ML VIAL SQ SCH ×3 (08:13→16:50)
[2017-09-04] MEDS ORDERED: Aspirin Enteric Coated 81 MG Tablet PO SCH (09:00)
[2017-09-04] MEDS ORDERED: *HR* HYDROcodone/Acet 5/325 mg TABLET PO PRN ×2 (10:03→22:28)
--- NOTE | 2017-09-04 12:38 | Infectious Disease Progress No ---
Date of Encounter: 09/04/17 Time of Encounter: 12:36 - Assessment and Plan (1) Leukocytosis Current Visit: Yes Status: Acute WBC elevated at 14.2 with normal differential on admission. Resolved. WBC normal today. The patient does not have any clinical indications that she has an active infection. This leukocytosis is likely reactive, secondary to her fractures. Continue to trend. Monitor for fevers, worsening leukocytosis, tachycardia, etc. No indication to start scheduled antibiotics, but would recommend routine pre- op antibiotics per ortho. No further recommendations from the ID team. We will sign off. Please re- consult if needed. Qualifiers: Leukocytosis type: unspecified Qualified Code(s): D72.829 - Elevated white blood cell count, unspecified (2) History of osteomyelitis Current Visit: Yes Status: Acute Previously diagnosed with left great toe OM status post amputation in September 2016. Subsequently developed an unsalvageable ulcer and OM to the left calcaneus. Status post left BKA January 2017. The patient had some delayed wound healing, but infection-related complications post-op. Clinically, the surgical site looks well-healed and without evidence of infection. (3) Status post below knee amputation of left lower extremity Current Visit: Yes Status: Acute Status post left BKA 01/[address] Anderson. Post-op course complicated by delayed wound healing, but no evidence of infection post-op. Clinically, the wound looks good now and is well-healed. (4) CAD (coronary artery disease) Current Visit: No Status: Chronic Qualifiers: Coronary Disease-Associated Artery/Lesion type: [place] artery [place] vs. transplanted heart: [place] heart Associated angina: with stable angina Qualified Code(s): I25.118 - Atherosclerotic heart disease of [place] coronary artery with other forms of angina pectoris (5) Closed left hip fracture Current Visit: Yes Status: Acute Status post fall today. Left femur fracture shows findings consistent with a left femoral neck fracture with impaction and mild displacement. With her periods consulted and following. Plan to take the patient to the OR tomorrow. At this time, I see no indication of active infection that would limit the patient's ability to go to surgery. Additionally, I do not feel she needs any additional antibiotics other than the standard preop antibiotic. Qualifiers: Encounter type: initial encounter Qualified Code(s): S72.002A - Fracture of unspecified part of neck of left femur, initial encounter for closed fracture (6) Fracture of right tibial plateau Current Visit: Yes Status: Acute Right knee/tib-fib x-ray showed a nondisplaced fracture of the proximal tibia and nondisplaced fibula fracture. Ortho consulted and following. This fracture is nonoperative and the patient will be placed in a knee immobilizer. Qualifiers: Encounter type: initial encounter Fracture type: closed Qualified Code(s) : S82.141A - Displaced bicondylar fracture of right tibia, initial encounter for closed fracture (7) Hyperkalemia Current Visit: Yes Status: Resolved Likely secondary to missing dialysis Sunday. Resolved. Management per the nephrology and primary teams. (8) ESRD (end stage renal disease) on dialysis Current Visit: Yes Status: Chronic Typically gets dialysis Sunday, Sunday, and Sunday. Missed dialysis today due to her fall. Nephrology consulted and following. - Subjective Interval history: Patient seen and examined. No acute events noted overnight. Patient scheduled for surgery later today. Reports pain in her left hip and right lower extremity. Denies any fevers or rigors, but does report she had an episode of night sweats last night. Denies any chest pain or shortness of breath or cough. Denies any nausea, vomiting, diarrhea, or constipation. She denies abdominal pain or urinary complaints and states she is hungry this morning but she is currently nothing by mouth for surgery later today. Denies oral thrush or new skin lesions. Her expresses concern about the upcoming surgery and elected to orthopedics because he has additional questions. I have asked nursing to contact orthopedics to speak with the patient. Infect Dis PN-Objective Data - Labs CBC & Chem 7: 09/04/17 00:45 09/04/17 00:45 Labs: Laboratory Results - last 24 hr 09/03/17 09/03/17 09/03/17 13:57 15:05 16:39 WBC RBC Hgb Hct MCV MCH MCHC RDW Plt Count MPV Immature Gran % Seg Neutrophils % Lymphocytes % Monocytes % Eosinophils % Basophils % Neutrophils # Lymphocytes # Monocytes # Eosinophils # Basophils # PT INR APTT Sodium Potassium Chloride Carbon Dioxide BUN Creatinine Est GFR ( Amer) Est GFR (Non-Af Amer) BUN/Creatinine Ratio Glucose POC Glucose 148 H 130 H Calculated Osmolality Calcium Phosphorus Magnesium Total Bilirubin AST ALT Alkaline Phosphatase Troponin I B-Natriuretic Peptide Serum Total Protein Albumin Globulin Albumin/Globulin Ratio Hep Bs Antigen Nonreactive Hep Bs Antibody 0.00 09/03/17 09/03/17 09/03/17 17:35 18:51 21:24 WBC RBC Hgb Hct MCV MCH MCHC RDW Plt Count MPV Immature Gran % Seg Neutrophils % Lymphocytes % Monocytes % Eosinophils % Basophils % Neutrophils # Lymphocytes # Monocytes # Eosinophils # Basophils # PT INR APTT Sodium Potassium Chloride Carbon Dioxide BUN Creatinine Est GFR ( Amer) Est GFR (Non-Af Amer) BUN/Creatinine Ratio Glucose POC Glucose 101 H 158 H Calculated Osmolality Calcium Phosphorus Magnesium Total Bilirubin AST ALT Alkaline Phosphatase Troponin I < 0.03 B-Natriuretic Peptide Serum Total Protein Albumin Globulin Albumin/Globulin Ratio Hep Bs Antigen Hep Bs Antibody 09/04/17 09/04/17 09/04/17 00:45 00:45 00:45 WBC 10.4 RBC 3.08 L Hgb 9.7 L Hct 29.5 L MCV 95.8 MCH 31.5 MCHC 32.9 RDW 14.1 Plt Count 160 MPV 9.4 Immature Gran % 0.5 Seg Neutrophils % 89.0 Lymphocytes % 4.6 Monocytes % 5.1 Eosinophils % 0.5 Basophils % 0.3 Neutrophils # 9.2 H Lymphocytes # 0.5 L Monocytes # 0.5 Eosinophils # 0.1 Basophils # 0.0 PT 12.0 INR 1.1 APTT 25.0 L Sodium Potassium Chloride Carbon Dioxide BUN Creatinine Est GFR ( Amer) Est GFR (Non-Af Amer) BUN/Creatinine Ratio Glucose POC Glucose Calculated Osmolality Calcium Phosphorus Magnesium Total Bilirubin AST ALT Alkaline Phosphatase Troponin I 0.20 H* B-Natriuretic Peptide Serum Total Protein Albumin Globulin Albumin/Globulin Ratio Hep Bs Antigen Hep Bs Antibody 09/04/17 09/04/17 09/04/17 00:45 00:45 06:16 WBC RBC Hgb Hct MCV MCH MCHC RDW Plt Count MPV Immature Gran % Seg Neutrophils % Lymphocytes % Monocytes % Eosinophils % Basophils % Neutrophils # Lymphocytes # Monocytes # Eosinophils # Basophils # PT INR APTT Sodium 134 L Potassium 4.0 D Chloride 94 L Carbon Dioxide 32 H BUN 18 Creatinine 3.55 H Est GFR ( Amer) 15 L Est GFR (Non-Af Amer) 13 L BUN/Creatinine Ratio 5 L Glucose 154 H POC Glucose Calculated Osmolality 283 Calcium 9.2 Phosphorus 5.4 H Magnesium 1.8 Total Bilirubin 0.6 AST 16 ALT 11 Alkaline Phosphatase 73 Troponin I 0.44 H* B-Natriuretic Peptide 773 H Serum Total Protein 6.8 Albumin 3.4 L Globulin 3.4 Albumin/Globulin Ratio 1.0 L Hep Bs Antigen Hep Bs Antibody Cultures: Serology 09/03/17 Range/Units 15:05 Hep Bs Antigen Nonreactive (Nonreactive) Hep Bs Antibody 0.00 mIU/mL Exam - Constitutional Vitals: Temp Pulse Resp BP Pulse Ox 98.7 F 90 17 177/77 99 09/04/17 10:52 09/04/17 10:52 09/04/17 10:52 09/04/17 10:52 09/04/17 10:52 General appearance: average body habitus, cooperative, no acute distress - Head Head exam: Present: atraumatic, normal inspection, normocephalic - Eye Eye exam: Present: EOMI, normal appearance, PERRL Pupils: Present: normal accommodation - ENT ENT exam: Present: mucous membranes moist - Neck Neck exam: Present: normal inspection - Respiratory Respiratory exam: Present: CTAB. Absent: rales, respiratory distress, rhonchi, wheezes - Cardiovascular Cardiovascular exam: Present: RRR, +S1, +S2 - GI/Abdominal GI/Abdominal exam: Present: normal bowel sounds, soft. Absent: distended, tenderness - Extremities Exam Extremities exam: Present: tenderness (Left hip, right lower leg.). Absent: pedal edema Additional comments: LLE BKA stump without redness, warmth, or drainage and surgical incision is well -healed. - Neurological Exam Neurological exam: Present: alert, oriented X3, no focal deficits - Psychiatric Psychiatric exam: Present: normal affect, normal mood - Skin Skin exam: Present: dry, intact, normal color, warm Consult Discharge Plan - Plan Referrals: Rudi Avila MD [Primary Care Provider] - - Attending Attestation I examined this patient and my medical decision-making was reviewed with the Resident Physician. I agree with the documented findings, disposition and treatment plan as described except to the extent set forth below.
--- NOTE | 2017-09-04 14:00 | Electrocardiograph Report ---
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
--- NOTE | 2017-09-04 14:23 | Cardiology Consult Note ---
Date of Encounter: 09/04/17 Time of Encounter: 14:10 Assessment and Plan (1) CAD in [place] artery Current Visit: Yes Status: Acute [place] CAD. [facility] 07/2016 - Small vessel distal LAD disease. Otherwise, non-obstructive. Preserved EF per previous reports. Continue aspirin/Plavix, BB therapy. Ideally, should be on a statin. No allergy listed. Start Lipitor 20 mg qhs. Risk factor modification. (2) Troponin level elevated Current Visit: Yes Status: Acute Mildly elevated troponin, now flat at 0.4s. This is similar to previous admissions. Single episode of chest discomfort, atypical. Below diaphragm, across abdomen, none before or since episode. Comfortable without chest discomfort during my evaluation. [facility] a little over one year ago - medical therapy. ECGs reviewed - no ST or T changes. Presentation/findings not c/w ACS. Recommend limited TTE for LV function. If no significant findings, then no further changes at this time. (3) Preop cardiovascular exam Current Visit: Yes Status: Acute See comments under elevated troponin. If no significant changes in LV function on limited TTE, then no further preoperative cardiac testing appears necessary. Patients multiple comorbidities, poor functional capacity place her at least as a moderate risk candidate for this moderate risk surgery. Please call with questions or concerns. Discussion w patient/family: The assessment and plan as outlined above was discussed with the patient and/or family members who expressed understanding and agreement. All questions were answered. Thank you for involving us in the care of your patient. Please call with any questions. History of Present Illness Consult date: 09/04/17 Requesting physician: Julia Rojas Consult reason: Preop, Troponin elevation Chief complaint: Fall, fracture History of present illness: Ms. Eng is a 71 year old female admitted for fall. Diagnosed with fracture. Surgery recommended. Noted to have mild troponin elvation. Reports a single episode of chest discomfort last evening. No chest prior to or since then. Increased, but relatively flat troponin, similar to prior admissions. Prior CV testing: ECGs personally reviewed from this admission, NSR. No ST-T changes. TTE 10/11/2016: LVEF 65%. Moderate DD. Normal RV size/function. Mild , MS, MR. No pHTN, RVSP 41 mmHg. [facility] 08/03/2016: LM nl. LAD mid 30%, 70-80% distal (small vessel). D1 40%. CX proximal 50% and mid 40% stenoses. Ramus 30% stenosis. RCA mid 30% stenosis. [facility] 05/25/2016: Right critical ICA stenosis, 80-99%. Past Med Surg Social Fam HX - Past Medical History Medical history: coronary artery disease, diabetes, dialysis, hypertension, renal disease, other Psychiatric history: anxiety, depression - Past Surgical History Surgical History: carotid endarterectomy, hysterectomy, orthopedic, other, thyroidectomy, other - Social History Smoking Status: Never smoker Smokeless Tobacco Status: No Alcohol use: none Drug use: none - Family History Mother Adopted: No Family Member Ethnicity: Non- Living Status: Hx Family Cardiac Disorders: No Hx Family Respiratory Disorders: Yes Hx Family Cancer: Yes Hx Family GI Disorders: No Hx Family Endocrine Disorder: No Hx Family Neuromuscular Disorders: No Hx Family Neurologic Disorders: No Hx Family HEENT Disorders: No Hx Family Autoimmune Disorders: No Father Adopted: No Family Member Ethnicity: Non- Living Status: Hx Family Cardiac Disorders: Yes Hx Family Respiratory Disorders: Yes Hx Family Cancer: No Hx Family GI Disorders: No Hx Family Endocrine Disorder: Yes Hx Family Neuromuscular Disorders: No Hx Family Neurologic Disorders: Yes Hx Family HEENT Disorders: No Hx Family Autoimmune Disorders: No Medications and Allergies Acetaminophen [Tylenol] 1,000 mg PO HS PRN 10/09/16 [History] Lidocaine/Prilocaine [Emla] 1 appl TP ONCE PRN 10/09/16 [History] Clopidogrel [Plavix] 75 mg PO DAILY tablet 10/16/16 [Rx] DiphenhydraMINE [Benadryl] 25 mg PO HS PRN #10 02/05/17 [Rx] Gabapentin [Neurontin] 100 mg PO TID #30 02/05/17 [Rx] Citalopram [CeleXA] 20 mg PO DAILY 03/30/17 [History] Metoprolol [Lopressor] 25 mg PO BID 03/30/17 [History] Ondansetron HCl [Zofran] 4 mg PO TID #15 tablet 05/13/17 [Rx] Aspirin Enteric Coated [Aspirin EC] 81 mg PO DAILY #30 tablet. 06/11/17 [Rx] Multivitamin [Multivitamins] 1 cap PO DAILY 09/03/17 [History] Sevelamer [Renvela] 3 tab PO TIDWM 09/03/17 [History] 3 Allergy/AdvReac Type Severity Reaction Status Date / Time Penicillins Allergy Hives Verified 09/03/17 10:29 All Systems Review: A 10-system review of systems was performed and is negative for pertinent findings except as documented above in the HPI. - Cardiovascular Cardiovascular: as per HPI Physical Examination Vital Signs, Last 4 Hours Temp Pulse Resp BP Pulse Ox 09/04/17 13:11 75 148/71 09/04/17 10:52 98.7 F 90 17 177/77 99 09/04/17 10:12 96 General: Conversant, No Apparent Distress HEENT: Atraumatic, Normocephaly, Mucus Membranes Moist Cardiac: Reg Rate and Rhythm, Other (Mild ELAINE) Neuro: Alert and responsive, No focal deficits noted Abdomen: Soft Skin: No rashes noted on visualized skin Musculoskeletal: No Chest Wall Tenderness Extremities: No Clubbing, No Cyanosis, Other (Left BKA) Results 09/04/17 00:45 09/04/17 00:45 Lab Results 09/03/17 09/04/17 09/04/17 18:51 00:45 00:45 WBC 10.4 Hgb 9.7 L Hct 29.5 L Plt Count 160 INR APTT Sodium Potassium Chloride Carbon Dioxide BUN Creatinine Glucose Calcium Magnesium Total Bilirubin AST ALT Alkaline Phosphatase Troponin I < 0.03 0.20 H* B-Natriuretic Peptide 09/04/17 09/04/17 09/04/17 00:45 00:45 00:45 WBC Hgb Hct Plt Count INR 1.1 APTT 25.0 L Sodium 134 L Potassium 4.0 D Chloride 94 L Carbon Dioxide 32 H BUN 18 Creatinine 3.55 H Glucose 154 H Calcium 9.2 Magnesium 1.8 Total Bilirubin 0.6 AST 16 ALT 11 Alkaline Phosphatase 73 Troponin I B-Natriuretic Peptide 773 H 09/04/17 09/04/17 06:16 13:10 WBC Hgb Hct Plt Count INR APTT Sodium Potassium Chloride Carbon Dioxide BUN Creatinine Glucose Calcium Magnesium Total Bilirubin AST ALT Alkaline Phosphatase Troponin I 0.44 H* 0.45 H* B-Natriuretic Peptide - Imaging and Cardiology Echo: report reviewed Cardiac cath: report reviewed - EKG Interpretation EKG results cardiology: personally reviewed Consult Discharge Plan - Plan Referrals: Rudi Avila MD [Primary Care Provider] -
[2017-09-04] MEDS: Gabapentin 100 MG CAPSULE PO SCH ×2 (14:25→16:40)
[2017-09-04] MEDS: *HR* Metoprolol 5 MG/5 ML VIAL IVP SCH ×2 (14:27→18:42)
[2017-09-04] MEDS ORDERED: Perflutren Lipid Microsphere 1.3 ML in 0.9 % Sodium Chloride 8.7 ML IVP ONE (16:58)
[2017-09-04] MEDS ORDERED: Lidocaine -MPF 4% 5 ML AMPUL ONE (18:01)
[2017-09-04] MEDS ORDERED: Lidocaine -MPF 2% 2 ML VIAL ONE (18:01)
[2017-09-04] MEDS ORDERED: Dexamethasone 4 MG/ML VIAL ONE (18:01)
[2017-09-04] MEDS ORDERED: *HR* FentaNYL (PF) 100 MCG/2 ML VIAL ONE (18:01)
[2017-09-04] MEDS ORDERED: *HR* Propofol 200 MG/20 ML VIAL IVP ONE (18:01)
[2017-09-04] MEDS ORDERED: Ondansetron 4 MG/2 ML VIAL ONE (18:01)
--- NOTE | 2017-09-04 18:03 | Anesthesia Evaluation PreOp ---
Date of Encounter: 09/04/17 Time of Encounter: 18:00 - Past History Planned Operation: hip hemiarthroplasty Cardiac History: [place], HTN, Hyperlipidemia, Other (CAD. Had brief episode of chest pain last pm and had a minimal bump in troponins overnight. 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 History: Other (anxiety/depression) Other Medical History: Renal (On routine dialysis for ESRD secondary to diabetes.), Diabetes Type I, GERD Anesthesia History: No Prior Anesthetic Complications, Past Anesthesia Alcohol Use: none Drug use: none Medications and Allergies Acetaminophen [Tylenol] 1,000 mg PO HS PRN 10/09/16 [History] Lidocaine/Prilocaine [Emla] 1 appl TP ONCE PRN 10/09/16 [History] Clopidogrel [Plavix] 75 mg PO DAILY tablet 10/16/16 [Rx] DiphenhydraMINE [Benadryl] 25 mg PO HS PRN #10 02/05/17 [Rx] Gabapentin [Neurontin] 100 mg PO TID #30 02/05/17 [Rx] Citalopram [CeleXA] 20 mg PO DAILY 03/30/17 [History] Metoprolol [Lopressor] 25 mg PO BID 03/30/17 [History] Ondansetron HCl [Zofran] 4 mg PO TID #15 tablet 05/13/17 [Rx] Aspirin Enteric Coated [Aspirin EC] 81 mg PO DAILY #30 tablet. 06/11/17 [Rx] Multivitamin [Multivitamins] 1 cap PO DAILY 09/03/17 [History] Sevelamer [Renvela] 3 tab PO TIDWM 09/03/17 [History] 3 Allergy/AdvReac Type Severity Reaction Status Date / Time Penicillins Allergy Hives Verified 09/03/17 10:29 - Meds/Allergy Pre-op Review Medications Reviewed: Yes Allergies Reviewed: Yes Beta Blockers on Current Med List: Yes (last dose 7396) Anesthesia Results - Labs 09/04/17 00:45 09/04/17 00:45 - Imaging EKG: image reviewed (sinus rhythm, mild ST changes, consistent with previous exams) Anesthesia Exam Selected Entries 09/04/17 15:03 Temperature 98.1 F Pulse Rate 74 Respiratory Rate 16 Blood Pressure 147/68 O2 Sat by Pulse Oximetry 94 Weight: 72 kg. NPO (# of Hours): over 8 hours - HEENT Pupil (Motor): Pupils equal Mallampati: I Teeth: Edentulous Oral Opening: Greater than 3 - Cardiac Rhythm: Regular Murmur: Systolic (harsh holosystolic m) - Pulmonary Breath Sounds: bilateral Clear Respiratory Effort: Symmetrical Anesthesia Assess/Plan ASA Score: 3 Modified [place] Scale for Level of Consciousness: Cooperative, oriented, and tranquil Anesthetic Plan: General Monitoring Plan: Standard Monitors Recovery Plan: PACU (Discussed GA, risks. Agreed to proceed.)
[2017-09-04] MEDS ORDERED: Vancomycin 1,000 MG in D5% in Water 250 ML IVPB ONE (18:41)
[2017-09-04] MEDS ORDERED: EPHEDrine 50 MG/ML VIAL ONE (19:17)
[2017-09-04] MEDS ORDERED: Ethanol\\Acetic Acid\\Na Ace\\Ben 1,000 ML IRRIG.SOLN IR ONE (19:32)
--- NOTE | 2017-09-04 19:41 | Internal Med Progress Note ---
Date of Encounter: 09/04/17 Time of Encounter: 10:00 - Assessment and plan (1) Closed left hip fracture Current Visit: Yes Status: Acute Assessment and plan: Pain control with IV morphine. Appreciate orthopedic input. She will need surgical repair once she is cleared. The patient had chest pain last night, troponin was elevated. Currently she denies chest pain. We will repeat troponin level. She will need to have ACS ruled out prior to surgery. We will consult cardiology. I have discussed the case with cardiology who will evaluate the patient. Qualifiers: Encounter type: initial encounter Qualified Code(s): S72.002A - Fracture of unspecified part of neck of left femur, initial encounter for closed fracture (2) Fracture of right tibial plateau Current Visit: Yes Status: Acute Assessment and plan: Supportive care. Pain control. PT OT evaluation. Full Precautions. Qualifiers: Encounter type: initial encounter Fracture type: closed Qualified Code(s) : S82.141A - Displaced bicondylar fracture of right tibia, initial encounter for closed fracture (3) Status post below knee amputation of left lower extremity Current Visit: Yes Status: Acute (4) Fracture of right tibia Current Visit: Yes Status: Acute Qualifiers: Encounter type: initial encounter Tibia location: proximal Fracture type : closed Fracture morphology: unspecified fracture morphology Qualified Code (s): S82.101A - Unspecified fracture of upper end of right tibia, initial encounter for closed fracture (5) CAD in [place] artery Current Visit: Yes Status: Acute Assessment and plan: I will continue with aspirin and Plavix, metoprolol and statin. Mack troponin to rule out ACS. Consult cardiology. She is at high risk for morbidity, mortality and complications due to treatment with IV controlled substances (6) Troponin level elevated Current Visit: Yes Status: Acute - Subjective Interval history: Patient reports left hip pain and right knee pain, she is status post fall yesterday. Her left hip pain is severe, worse with any movement, better with rest, sharp and aching. - Constitutional Vitals: Temp Pulse Resp BP Pulse Ox 98.1 F 74 16 147/68 94 09/04/17 15:03 09/04/17 15:03 09/04/17 15:03 09/04/17 15:03 09/04/17 15:03 General appearance: Present: mild distress, A&O X 3, pleasant, answers questions appropriately - Respiratory Respiratory exam: Present: CTAB. Absent: accessory muscle use, rales, rhonchi, wheezes - Cardiovascular Cardiovascular exam: Present: RRR, +S1, +S2. Absent: diastolic murmur, gallop, rubs, systolic murmur - GI/Abdominal GI/Abdominal exam: Present: normal bowel sounds, soft, no peritoneal signs. Absent: distended, tenderness - Extremities Exam Additional comments: Left BKA. - Neurological Exam Neurological exam: Present: CN II-XII intact, oriented X3, no focal deficits. Absent: pronater drift, facial droop, speech deficit Internal Medicine: Result - Labs CBC & Chem 7: 09/04/17 00:45 09/04/17 00:45 Labs: Short CBC 09/04/17 Range/Units 00:45 WBC 10.4 (4.3-11.1) K/mcL Hgb 9.7 L (11.5-15.4) g/dL Hct 29.5 L (35.3-44.9) % Plt Count 160 (140-400) K/mcL Neutrophils # 9.2 H (1.6-8.9) K/mcL BMP 09/04/17 00:45 Sodium 134 L Potassium 4.0 D Chloride 94 L Carbon Dioxide 32 H BUN 18 Creatinine 3.55 H Glucose 154 H Calcium 9.2 Cardiac Enzymes 09/04/17 09/04/17 09/04/17 Range/Units 00:45 06:16 13:10 Troponin I 0.20 H* 0.44 H* 0.45 H* (< 0.04) ng/mL Liver Function 09/04/17 Range/Units 00:45 Total Bilirubin 0.6 (0.3-1.0) mg/dL AST 16 (13-39) Units/L ALT 11 (7-52) Units/L Alkaline Phosphatase 73 (34-104) Units/L Albumin 3.4 L (3.5-5.7) g/dL - ABG Interpretation ABG results: PT/INR, D-dimer PT 12.0 Seconds (9.4-12.1) 09/04/17 00:45 Consult Discharge Plan - Plan Referrals: Rudi Avila MD [Primary Care Provider] - (web request 09/04/2017)
[2017-09-04] MEDS ORDERED: *HR* OxyCODONE/APAP 5/325 TABLET PO PRN (20:30)
[2017-09-04] MEDS ORDERED: *HR* HYDROmorphone (PF) 1 MG/ML SYRINGE IVP PRN ×2 (20:30→22:28)
--- NOTE | 2017-09-04 21:15 | Operative Note ---
Date of procedure: 09/04/17 Pre-op diagnosis: Left hip displaced femoral neck fracture, right possible tibial shaft ffx Post-op diagnosis: same Procedure: Left hip hemiarthroplasty Right leg closed treatment of tibial shaft fracture, no manipulation Implants: Jagdeep [employer] Echo hip system Anesthesia: GETA Surgeon: Chicho Regalado Was there an conservation assistant present: No Estimated blood loss (cc): 200 Specimen: Sent to pathology Condition: stable Disposition: PACU Procedure in Detail: Indications: Patient is 71 years old woman who is a minimal ambulator on dialysis status post fall sustaining a left hip displaced femoral neck fracture and a healing fracture to the right proximal tibial shaft. 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 The patient was planning on getting fitted with left leg prosthesis when she fell. She is scheduled for a left hip bon=arthroplasty. The right leg to be treated closed with a knee immobilizer. Procedure: The patient received IV antibiotics in the holding area. She was brought to the operating room, sign in was performed. The patient underwent general anesthesia on the hospital bed. She was then transferred to the OR table in supine position. The patient was positioned in the right lateral decubitus position, supported by pelvic supports. Bony prominences of the ring lower extremity were well padded. The left lower extremity was then prepped and draped from the pelvis to the BKA stump, in usual sterile fashion. A timeout was performed. The level of the greater trochanter was palpated, a 12-15 cm curvilinear posterior incision was made, followed by Bovie dissection. The hip abductor was sharply split in line with its fibers with a curved Vogt scissors, incising the fascia over the gluteus aris also. The Charnley retractors were then positioned, making sure all not to go too deeply, to protect the sciatic nerve. The bursa over the greater trochanter was excised with Bovie electrocautery. The left hip was then internally rotated, putting the short external rotators on stretch. These were taken down from the insertion point with the Bovie cautery, starting from less of a trochanter and going approximately to the femoral neck. The capsule along the posterior femoral neck and head was then T' ed, giving exposure to the fractured femoral head/neck. The head was then removed with a power corkscrew, and cutting the ligamentum teres. The head was measured and a size 45 mm diameter was chosen. The acetabulum was washed out of any bone fragments. It was noted that there was a 1 cm diameter superficial hole in the posterior acetabulum. There was pulsatile in the area. Unclear if this is an old defect, but this was gauged by the power corkscrew. The 45 mm trial head was placed giving a good fit. Next, the exposed fractured femoral neck was cleaned up with a rongeur, a box car checker was then used to remove the lateral bone. The canal finder was then inserted. We then started broaching with a press-fit broaches from the Jag[employer] echo tray. I also used the lateralizer. Starting with a press-fit 7, and moving up to a press-fit 8, keeping the appropriate anteversion. The anteversion was estimated as best as possible, this patient did not have a leg to appropriately internally rotated the hip. Increasing to a press-fit 13. He tried going to size 14 but could not get the stem down. Went back to size 13. The trial stem was well fixed with no toggling. The broach was then removed. The canal was irrigated out and suctioned. The [employer] Echo press-fit stem was then opened, using a lateralized 130 degree neck angle and a size 13 pressfit stem, the implant was tapped in place, making sure to keep the correct anteversion. Once well positioned, we trialed with a 45 mm diameter trial head, and a neutral neck length. I then trialed with a +3 mm neck length. This gave much better fit with stability. There was mild tightness of the hip in extension. The hip was very difficult to dislocate. Able to flex the hip, adduct, and internally rotated up to 60 degrees before the hip started subluxing out. The trial components removed. The acetabulum was copiously irrigated with normal saline once again making sure it was well cleaned out. Next the 45 mm unipolar head was opened with a +3 neck length. This assembled and tapped in place. The hip was reduced, and stability was checked once again. The hip felt more unstable compared to the trial. It was sent to change up to a +6 mm neck length. Unfortunately we could not disconnect the neck from the Endo head. A 45 mm Endo head was opened. This was tapped in place with a +6 neck length. It was reduced and felt much more stable. The capsule was then closed with 2-0 FiberWire figure of 8 sutures. The leg was placed on Vogt stand, and the short external rotators were reattached to the bone using the FiberWire. The tensor fascia along with the gluteus fascia was closed with FiberWire [id number] sutures and a #1 Vicryl running suture proximally. Once again irrigating the wound with pulse lavage. The deep fat layer was closed with 1 Vicryl, subcutaneous tissues with 2-0 Vicryl simple sutures, and finally the skin was closed with the Zipline system. Sterile dressings were applied. A hip abduction wedge was in place between the patient's legs. She was then rolled over into supine position and transferred back onto the hospital bed. The right lower extremity was placed into a Torres dressing followed by a knee immobilizer. She was extubated and taken to the recovery room in stable condition.
--- NOTE | 2017-09-04 22:01 | Anesthesia Evaluation Post Op ---
Date of Encounter: 09/04/17 Time of Encounter: 22:00 - Vital Signs Vital Signs: Last Vital Signs Temp 99.5 F 09/04/17 21:46 Pulse 95 09/04/17 21:46 Resp 20 09/04/17 21:46 BP 142/60 09/04/17 21:46 Pulse Ox 97 09/04/17 21:46 - Lungs Lungs: Clear Ascult./Percussion - Airway Airway: Non-obstructed - Cardiovascular Regular Rate - Mental Status Mental Status: Alert & Oriented, Answers Appropriately - Pain Pain Scale: 2 - Nausea Vomiting Nausea Vomiting: Not Present - Hydration Hydration: NPO, Love catheter - Discharge PostOp Status: Transfer Patient to floor
[2017-09-04] MEDS ORDERED: Dextrose Gel 15 GM/37.5 ML TUBE PO PRN ×2 (22:28)
[2017-09-04] MEDS ORDERED: D5% in Water 1,000 ML IVC PRN (22:28)
[2017-09-04] MEDS ORDERED: Ringers Solution, Lactated 1,000 ML IVC SCH (22:28)
[2017-09-04] MEDS ORDERED: Temazepam 15 MG CAPSULE PO PRN (22:28)
[2017-09-04] MEDS ORDERED: Sennosides 8.6 MG TABLET PO PRN (22:28)
[2017-09-04] MEDS ORDERED: 0.9 % Sodium Chloride 1,000 ML PRIME SCH (22:28)
[2017-09-04] MEDS ORDERED: 0.9 % Sodium Chloride 250 ML IVC PRN (22:28)
[2017-09-04] MEDS ORDERED: Naloxone 0.4 MG/ML INJ IVP PRN ×2 (22:28)
[2017-09-04] MEDS ORDERED: *HR* Morphine 2 MG/ML SYRINGE IVP PRN (22:28)
[2017-09-04] MEDS ORDERED: *HR* Dextrose 50 % in Water (Syg) 50 ML SYRINGE IVP PRN (22:28)
[2017-09-04] MEDS ORDERED: Ondansetron 4 MG/2 ML VIAL IVP PRN (22:28)
[2017-09-04] MEDS ORDERED: MOM Conc 10 ML UD.LIQ PO PRN (22:28)
[2017-09-05] MEDS: Ondansetron 4 MG/2 ML VIAL IVP SCH ×4 (00:29→18:03)
[2017-09-05] MEDS: *HR* Metoprolol 5 MG/5 ML VIAL IVP SCH ×4 (00:31→16:47)
[2017-09-05] MEDS ORDERED: *HR* Enoxaparin 30 MG/0.3 ML SYRINGE SQ SCH (06:00)
[2017-09-05] MEDS ORDERED: Vancomycin 1,000 MG, Sodium Chloride IRRigation 1,000 ML IR ONE (06:00)
[2017-09-05 08:16] LABS: Potassium 4.8 mEq/L (3.5-5.1)
[2017-09-05 08:41] LABS: Hematocrit 24.9 % (35.3-44.9); Hemoglobin 8.3 g/dL (11.5-15.4)
[2017-09-05] MEDS ORDERED: 0.9 % Sodium Chloride 250 ML IVC PRN (09:05)
[2017-09-05] MEDS ORDERED: 0.9 % Sodium Chloride 1,000 ML PRIME SCH (09:15)
[2017-09-05] MEDS: Insulin LISPRO 300 UNITS/3 ML VIAL SQ SCH ×4 (09:24→20:19)
--- NOTE | 2017-09-05 09:53 | Nephrology Progress Note ---
Date of Encounter: 09/05/17 Time of Encounter: 09:52 - Assessment and Plan (1) ESRD (end stage renal disease) on dialysis Current Visit: Yes Status: Chronic Continue HD as scheduled MFW Avoid nephrotxins (2) Hyperkalemia Current Visit: Yes Status: Resolved K 6.0 --> 4.8 EKG reveals NSR, prominent T waves in V1 and V2 compared to previous EKG Patient given Calcium gluconate in the ED Telemetry monitoring Continue HD as scheduled MWF (3) Hyperphosphatemia Current Visit: Yes Status: Chronic Continue Renvela (4) Elevated troponin Current Visit: Yes Status: Chronic Serial troponins < 0.03, 0.20, 0.44 in the setting of ESRD and CAD EKG reveals NSR at 74 bpm, moderate T-wave abnormality, possible inferior myocardial infarction Cardiology evaluate the patient, findings not c/w ACS. Ordered limited TTE (5) Anemia in chronic kidney disease Current Visit: No Status: Chronic HGB 9.9 --> 8.3 Continue to monitor Qualifiers: Chronic kidney disease stage: on chronic dialysis Qualified Code(s): N18.6 - End stage renal disease; D63.1 - Anemia in chronic kidney disease; D63.1 - Anemia in chronic kidney disease; Z99.2 - Dependence on renal dialysis; Z99.2 - Dependence on renal dialysis; Z99.2 - Dependence on renal dialysis; Z99.2 - Dependence on renal dialysis (6) Closed left hip fracture Current Visit: Yes Status: Acute Management per ortho Qualifiers: Encounter type: initial encounter Qualified Code(s): S72.002A - Fracture of unspecified part of neck of left femur, initial encounter for closed fracture (7) Fracture of right tibial plateau Current Visit: Yes Status: Acute Management per ortho Qualifiers: Encounter type: initial encounter Fracture type: closed Qualified Code(s) : S82.141A - Displaced bicondylar fracture of right tibia, initial encounter for closed fracture Subjective Principal diagnosis: ESRD Interval history: Patient seen and examined during HD on POD #1 s/p left hip replacement. She is very difficult to arouse s/p receiving post-op pain control. Patient has no acute complaints at this time. Objective - Vital Signs Vital signs: Vital Signs Temp Pulse Resp BP Pulse Ox 09/05/17 06:56 98.2 F 84 17 154/75 94 09/05/17 03:53 97.5 F L 90 12 134/72 92 09/05/17 02:53 86 14 145/75 100 09/05/17 01:53 86 12 147/76 100 09/05/17 00:53 84 14 146/78 100 09/04/17 23:53 89 12 134/72 98 09/04/17 23:23 90 14 152/76 100 09/04/17 22:53 91 12 134/74 97 09/04/17 22:38 92 12 134/71 97 09/04/17 22:23 92 12 134/73 98 09/04/17 22:16 98.1 F 98 15 147/69 98 09/04/17 22:08 94 14 139/74 98 09/04/17 21:46 99.5 F 95 20 142/60 97 09/04/17 21:38 95 20 134/52 99 09/04/17 21:28 95 20 121/57 100 09/04/17 21:18 98.4 F 93 16 127/54 100 09/04/17 15:03 98.1 F 74 16 147/68 94 09/04/17 13:11 75 148/71 09/04/17 10:52 98.7 F 90 17 177/77 99 09/04/17 10:12 96 Intake and Output 09/04/17 09/05/17 09/05/17 23:59 07:59 15:59 Output Total 200 / 200 Balance -200 / -200 Output: Estimated Blood Loss 200 / 200 Other: Blood Glucose* 159 188 - General Appearance General appearance: Present: well-developed, well-nourished Exam: sedated, difficult to arouse EENT: Present: mucous membranes moist Additional Comments: pupils pinpoint Neck: Present: no JVD, supple Respiratory: Present: clear Additional Comments: equal breath sounds bilaterally Cardiology: Present: mid-systolic murmur (ELAINE), regular rate, regular rhythm Dialysis Vascular Access: Arteriovenous Fistula thrill: Yes bruit: Yes Gastrointestinal: Present: normoactive bowel sounds, no tenderness, no guarding , no organomegaly Integumentary: Present: no rash, warm and dry Additional Comments: left hip dressing C/D/I Neurologic: Present: no focal deficit Additional Comments: sedated, unable to cooperate Musculoskeletal: Present: deformities (LBKA) Additional Comments: sedated, unable to assess - Lab 09/05/17 07:09 09/05/17 07:09 Most recent lab results Calcium 9.0 mg/dL (8.6-10.3) 09/05/17 07:09 Phosphorus 5.4 mg/dL (2.7-4.5) H 09/04/17 00:45 Magnesium 1.8 mg/dL (1.6-2.6) 09/04/17 00:45 - VTE Documentation of Mechanical Device: Venous foot pump, device Consult Discharge Plan - Plan Referrals: Rudi Avila MD [Primary Care Provider] - (web request 09/04/2017)
[2017-09-05] MEDS ORDERED: Albumin 25% 12.5gm/50mL 25.0 GM/100 ML IV.SOLN ONE (10:37)
[2017-09-05] MEDS ORDERED: Albumin 25% 25gram/100mL 25 GM/100 ML IV.SOLN IVPB ONE (10:42)
[2017-09-05] MEDS: Ascorbic Acid 500 MG TABLET PO SCH ×2 (12:37→16:47)
[2017-09-05] MEDS: Gabapentin 100 MG CAPSULE PO SCH ×3 (12:37→23:31)
[2017-09-05] MEDS ORDERED: 0.9 % Sodium Chloride 2,000 ML ONE (12:39)
--- NOTE | 2017-09-05 14:24 | Orthopedics Progress Note ---
Date of Encounter: 09/05/17 Time of Encounter: 13:15 - Assessment and Plan (1) Closed left hip fracture Current Visit: Yes Status: Acute POD#1 s/p left hip hemiarthroplasty 09/04/17 dressings to be changed only if become >50% saturated with drainage. Continue to ice as needed for swelling. Continue with therapy for motion. of left hip. Will follow up with Dalia Wilson PA-C in [facility] office at POW#2. Qualifiers: Encounter type: initial encounter Qualified Code(s): S72.002A - Fracture of unspecified part of neck of left femur, initial encounter for closed fracture (2) Fracture of right tibial plateau Current Visit: Yes Status: Acute Continue in knee immobilizer. Toe touch weight bearing. Qualifiers: Encounter type: initial encounter Fracture type: closed Qualified Code(s) : S82.141A - Displaced bicondylar fracture of right tibia, initial encounter for closed fracture Subjective Principal diagnosis: POD#1 s/p left hip hemiarthroplasty 09/04/17 Interval history: Patient currently in dialysis. Patient sleepy on exam. Nurse states patient just received her pain medication which caused her to be drowsy. Objective Vital signs: Vital Signs Temp Pulse Resp BP Pulse Ox 09/05/17 12:45 102/52 09/05/17 12:30 106/54 09/05/17 12:15 112/53 09/05/17 12:00 127/58 09/05/17 11:45 123/56 09/05/17 11:30 99/51 09/05/17 11:15 95/48 09/05/17 11:00 103/48 09/05/17 10:54 94 09/05/17 10:45 97/50 09/05/17 10:30 95/47 09/05/17 10:15 96/48 09/05/17 10:00 109/54 09/05/17 09:45 98.3 F 16 146/63 09/05/17 06:56 98.2 F 84 17 154/75 94 09/05/17 03:53 97.5 F L 90 12 134/72 92 09/05/17 02:53 86 14 145/75 100 09/05/17 01:53 86 12 147/76 100 09/05/17 00:53 84 14 146/78 100 09/04/17 23:53 89 12 134/72 98 09/04/17 23:23 90 14 152/76 100 09/04/17 22:53 91 12 134/74 97 09/04/17 22:38 92 12 134/71 97 09/04/17 22:23 92 12 134/73 98 09/04/17 22:16 98.1 F 98 15 147/69 98 09/04/17 22:08 94 14 139/74 98 09/04/17 21:46 99.5 F 95 20 142/60 97 09/04/17 21:38 95 20 134/52 99 09/04/17 21:28 95 20 121/57 100 09/04/17 21:18 98.4 F 93 16 127/54 100 09/04/17 15:03 98.1 F 74 16 147/68 94 Intake and Output 09/04/17 09/05/17 09/05/17 23:59 07:59 15:59 Intake Total 600 / 600 Output Total 200 / 200 Balance -200 / -200 600 / 600 Intake: Oral 0 / 0 Intake, Rinseback and Flushes 600 / 600 Output: Estimated Blood Loss 200 / 200 Other: Blood Glucose* 159 188 110 Hemodialysis Net Fluid Removed 2291 (mL) Incision: clean and dry (dressings to left hip c/d/i no surrounding erythema. knee immoblizer to RLE) - Labs CBC & BMP: 09/05/17 07:09 09/05/17 07:09 Labs: Abnormal lab results RBC 3.08 M/mcL (3.82-4.97) L 09/04/17 00:45 Hgb 8.3 g/dL (11.5-15.4) L 09/05/17 07:09 Hct 24.9 % (35.3-44.9) L 09/05/17 07:09 Neutrophils # 9.2 K/mcL (1.6-8.9) H 09/04/17 00:45 Lymphocytes # 0.5 K/mcL (0.6-4.6) L 09/04/17 00:45 APTT 25.0 Seconds (26.0-36.0) L 09/04/17 00:45 Sodium 132 mEq/L (136-145) L 09/05/17 07:09 Chloride 95 mEq/L (98-107) L 09/05/17 07:09 BUN 36 mg/dL (8-23) H 09/05/17 07:09 Creatinine 5.78 mg/dL (0.60-1.20) H 09/05/17 07:09 Est GFR ( Amer) 9 (> 60) L 09/05/17 07:09 Est GFR (Non-Af Amer) 7 (> 60) L 09/05/17 07:09 Glucose 186 mg/dL (70-105) H 09/05/17 07:09 POC Glucose 188 (58-89) H 09/05/17 07:36 Phosphorus 5.4 mg/dL (2.7-4.5) H 09/04/17 00:45 Troponin I 0.45 ng/mL (< 0.04) H* 09/04/17 13:10 B-Natriuretic Peptide 773 pg/mL (Less than 100) H 09/04/17 00:45 Albumin 3.4 g/dL (3.5-5.7) L 09/04/17 00:45 Albumin/Globulin Ratio 1.0 (1.1-2.2) L 09/04/17 00:45 Urine Clarity Turbid (Clear) A 09/03/17 09:12 Ur Specific [place] 1.008 (1.010-1.025) L 09/03/17 09:12 Urine Protein >=300 mg/dL (Neg-Trace) H 09/03/17 09:12 Urine Glucose (UA) 100 mg/dL (Normal) H 09/03/17 09:12 Urine Blood Moderate (Negative) H 09/03/17 09:12 Ur Leukocyte Esterase Moderate (Negative) H 09/03/17 09:12 Urine Microscopic RBC 3-5 per hpf (0-3) H 09/03/17 09:12 Urine Microscopic WBC 50-100 per hpf (0-3) H 09/03/17 09:12 Ur Squamous Epith Cells Many per lpf (None-Few) H 09/03/17 09:12 Urine Bacteria Moderate per hpf (None-Few) H 09/03/17 09:12 Urine Yeast Few per hpf (None Seen) H 09/03/17 09:12 - VTE Documentation of Mechanical Device: Venous foot pump, device Consult Discharge Plan - Plan Referrals: Rudi Avila MD [Primary Care Provider] - (web request 09/04/2017)
[2017-09-05] MEDS: Aspirin Enteric Coated 81 MG Tablet PO SCH (16:44)
[2017-09-05] MEDS: Multivit/Ca/Min/Fe/FA 1 TAB TABLET PO SCH (16:45)
--- NOTE | 2017-09-05 18:10 | Internal Med Progress Note ---
Date of Encounter: 09/05/17 Time of Encounter: 14:00 - Assessment and plan (1) Closed left hip fracture Current Visit: Yes Status: Acute Assessment and plan: Status post hemiarthroplasty. Continue postoperative care. Pain control with IV Dilaudid, due to sedation and will decrease the dose from 0.5-0.25. Check hemoglobin and hematocrit in the morning. Initiate DVT prophylaxis. PT OT evaluation. Qualifiers: Encounter type: initial encounter Qualified Code(s): S72.002A - Fracture of unspecified part of neck of left femur, initial encounter for closed fracture (2) Fracture of right tibial plateau Current Visit: Yes Status: Acute Assessment and plan: Supportive care. Pain control. PT OT evaluation. Full Precautions. Qualifiers: Encounter type: initial encounter Fracture type: closed Qualified Code(s) : S82.141A - Displaced bicondylar fracture of right tibia, initial encounter for closed fracture (3) Status post below knee amputation of left lower extremity Current Visit: Yes Status: Acute (4) CAD in [place] artery Current Visit: Yes Status: Acute Assessment and plan: I will continue with aspirin and Plavix, metoprolol and statin. Echocardiogram shows normal ejection fraction. The appreciate cardiology input. We will follow up with cardiology. (5) Troponin level elevated Current Visit: Yes Status: Acute - Subjective Interval history: Patient is sedated and cannot provide history due to excessive sedation secondary to pain medication. Her primary nurse she had been complaining of severe hip pain and she was given 0.5 mg of Dilaudid which relieved the pain. She is able to be aroused and state her name and place but cannot have a conversation. - Constitutional Vitals: Temp Pulse Resp BP Pulse Ox 98.0 F 99 13 145/71 90 09/05/17 17:19 09/05/17 17:19 09/05/17 17:19 09/05/17 17:19 09/05/17 17:19 General appearance: Present: A&O X 2 (Sedated, easily arousable), pleasant, answers questions appropriately - Head Head exam: Present: atraumatic, normocephalic - Eye Eye exam: Present: PERRL, conjuntiva pink, sclera anicteric Pupils: Present: PERRL - Respiratory Respiratory exam: Present: CTAB. Absent: accessory muscle use, rales, rhonchi, wheezes - Cardiovascular Cardiovascular exam: Present: RRR, +S1, +S2. Absent: diastolic murmur, gallop, rubs, systolic murmur - GI/Abdominal GI/Abdominal exam: Present: normal bowel sounds, soft, no peritoneal signs. Absent: distended, tenderness - Extremities Exam Extremities exam: Present: warm, radial pulses palpable and symmetrical. Absent : calf tenderness, cyanotic, pedal edema Additional comments: Left hip surgical dressing present in place, there is soft tissue edema surrounding the surgical site. No bruising Internal Medicine: Result - Labs CBC & Chem 7: 09/05/17 07:09 09/05/17 07:09 Labs: Short CBC 09/05/17 Range/Units 07:09 Hgb 8.3 L (11.5-15.4) g/dL Hct 24.9 L (35.3-44.9) % BMP 09/05/17 07:09 Sodium 132 L Potassium 4.8 Chloride 95 L Carbon Dioxide 27 BUN 36 H Creatinine 5.78 H Glucose 186 H Calcium 9.0 - ABG Interpretation ABG results: PT/INR, D-dimer PT 12.0 Seconds (9.4-12.1) 09/04/17 00:45 - Impressions Impressions Echocardiogram Limited Views 09/04/17 14:33 Impressions: LVEF 65%. Mild-moderate concentric left ventricular hypertrophy. Definity echo contrast was used. RV is dilated with normal function. Valves were not evaluated on this limited study. Left Ventricular Wall Motion: Rest Echo Findings All wall segments showed normal motion. Findings: Study Quality * Technically adequate exam. ECG Findings * Normal sinus rhythm. Left Ventricle * LVEF 65%. * Mild-moderate concentric left ventricular hypertrophy. * Definity echo contrast was used. Right Ventricle * RV is dilated with normal function. Hip X-Ray 09/04/17 22:28 IMPRESSION: Status post left hip arthroplasty without evidence of acute postoperative complication. Severe osteopenia. D/ / 09/04/2017 22:46:49 Osman Courtney MD / ragini Interpreting Provider: Osman Courtney MD - VTE Documentation of Mechanical Device: Venous foot pump, device Consult Discharge Plan - Plan Referrals: Rudi Avila MD [Primary Care Provider] - (web request 09/04/2017)
[2017-09-05] MEDS ORDERED: Vancomycin 1,000 MG in D5% in Water 250 ML IVPB ONE (19:00)
[2017-09-05] MEDS ORDERED: Vancomycin 1,000 MG VIAL IVPB ONE (19:01)
[2017-09-05] MEDS: *HR* HYDROmorphone (PF) 1 MG/ML SYRINGE IVP PRN ×2 (19:07→23:04)
[2017-09-06] MEDS: *HR* Metoprolol 5 MG/5 ML VIAL IVP SCH ×3 (00:39→12:40)
[2017-09-06] MEDS: Ondansetron 4 MG/2 ML VIAL IVP SCH ×2 (00:43→06:20)
[2017-09-06] MEDS: *HR* Heparin 5,000 UNIT/ML VIAL SQ SCH ×3 (06:21→22:32)
[2017-09-06] MEDS: *HR* HYDROmorphone (PF) 1 MG/ML SYRINGE IVP PRN (06:22)
[2017-09-06 06:32] LABS: Basophils % 0.3 %; Eosinophils # 0.1 K/mcL (0.0-0.6); Eosinophils % 1.8 %; Hemoglobin 7.5 g/dL (11.5-15.4); Immature Granulocytes % 0.4 % (0-4); Lymphocytes # 0.6 K/mcL (0.6-4.6); Lymphocytes % 8.7 %; Mean Corpuscular HGB Conc 32.6 g/dL (31.6-35.5); Mean Corpuscular Hemoglobin 31.5 pg (28.0-33.3); Mean Corpuscular Volume 96.6 fL (83.0-100.0); Mean Platelet Volume 10.3 fL (9.4-12.4); Monocytes # 0.9 K/mcL (0.0-1.3); Monocytes % 12.5 %; Neutrophils # 5.6 K/mcL (1.6-8.9); Platelet Count 173 K/mcL (140-400); Red Blood Count 2.38 M/mcL (3.82-4.97); Segmented Neutrophils % 76.3 %
--- NOTE | 2017-09-06 07:39 | Nephrology Progress Note ---
Date of Encounter: 09/06/17 Time of Encounter: 07:38 - Assessment and Plan (1) ESRD (end stage renal disease) on dialysis Current Visit: Yes Status: Chronic Continue HD as scheduled MFW Avoid nephrotxins (2) Hyperkalemia Current Visit: Yes Status: Resolved K 6.0 --> 4.8 EKG reveals NSR, prominent T waves in V1 and V2 compared to previous EKG Patient given Calcium gluconate in the ED Telemetry monitoring Continue HD as scheduled MWF (3) Hyperphosphatemia Current Visit: Yes Status: Chronic Continue Renvela (4) Elevated troponin Current Visit: Yes Status: Chronic Serial troponins < 0.03, 0.20, 0.44 in the setting of ESRD and CAD EKG reveals NSR at 74 bpm, moderate T-wave abnormality, possible inferior myocardial infarction Cardiology evaluate the patient, findings not c/w ACS. Ordered limited TTE (5) Anemia in chronic kidney disease Current Visit: No Status: Chronic HGB 9.9 --> 8.3 Continue to monitor Qualifiers: Chronic kidney disease stage: on chronic dialysis Qualified Code(s): N18.6 - End stage renal disease; D63.1 - Anemia in chronic kidney disease; D63.1 - Anemia in chronic kidney disease; Z99.2 - Dependence on renal dialysis; Z99.2 - Dependence on renal dialysis; Z99.2 - Dependence on renal dialysis; Z99.2 - Dependence on renal dialysis (6) Closed left hip fracture Current Visit: Yes Status: Acute Management per ortho Qualifiers: Encounter type: initial encounter Qualified Code(s): S72.002A - Fracture of unspecified part of neck of left femur, initial encounter for closed fracture (7) Fracture of right tibial plateau Current Visit: Yes Status: Acute Management per ortho Qualifiers: Encounter type: initial encounter Fracture type: closed Qualified Code(s) : S82.141A - Displaced bicondylar fracture of right tibia, initial encounter for closed fracture Subjective Principal diagnosis: POD#1 s/p left hip hemiarthroplasty 09/04/17 Interval history: Patient seen and examined during HD on POD #1 s/p left hip replacement. She is very difficult to arouse s/p receiving post-op pain control. Patient has no acute complaints at this time. Objective - Vital Signs Vital signs: Vital Signs Temp Pulse Resp BP Pulse Ox 09/06/17 07:12 98.0 F 93 14 145/68 92 09/06/17 04:01 98.3 F 94 16 144/65 95 09/05/17 23:09 98.3 F 98 15 116/45 95 09/05/17 20:05 98.0 F 100 14 123/49 88 09/05/17 17:19 98.0 F 99 13 145/71 90 09/05/17 16:15 99 14 151/68 92 09/05/17 14:00 97.4 F L 18 124/51 09/05/17 13:15 104/49 09/05/17 13:00 98/50 09/05/17 12:45 102/52 09/05/17 12:30 106/54 09/05/17 12:15 112/53 09/05/17 12:00 127/58 09/05/17 11:45 123/56 09/05/17 11:30 99/51 09/05/17 11:15 95/48 09/05/17 11:00 103/48 09/05/17 10:54 94 09/05/17 10:45 97/50 09/05/17 10:30 95/47 09/05/17 10:15 96/48 09/05/17 10:00 109/54 09/05/17 09:45 98.3 F 16 146/63 Intake and Output 09/05/17 09/05/17 09/06/17 15:59 23:59 07:59 Intake Total 600 / 600 Output Total 2600 / 2600 Balance -1999 / -1999 Intake: Oral 0 / 0 Intake, Rinseback and Flushes 600 / 600 Output: Urine 0 / 0 Total Dialysis (HD) Output 2600 / 2600 Other: Weight 72.6 kg Blood Glucose* 110 163 101 Hemodialysis Net Fluid Removed 2000 (mL) Patient Weight 09/06/17 23:59 Weight 72.6 kg - Lab 09/06/17 05:48 09/05/17 07:09 Most recent lab results Calcium 9.0 mg/dL (8.6-10.3) 09/05/17 07:09 Phosphorus 5.4 mg/dL (2.7-4.5) H 09/04/17 00:45 Magnesium 1.8 mg/dL (1.6-2.6) 09/04/17 00:45 - VTE Documentation of Mechanical Device: Venous foot pump, device Consult Discharge Plan - Plan Referrals: Rudi Avila MD [Primary Care Provider] - (web request 09/04/2017)
[2017-09-06 08:08] LABS: Calcium 9.4 mg/dL (8.6-10.3); Potassium 3.4 mEq/L (3.5-5.1)
[2017-09-06] MEDS: Insulin LISPRO 300 UNITS/3 ML VIAL SQ SCH ×4 (08:44→21:43)
[2017-09-06] MEDS: Aspirin Enteric Coated 81 MG Tablet PO SCH (08:45)
[2017-09-06] MEDS: Gabapentin 100 MG CAPSULE PO SCH ×3 (08:45→21:08)
[2017-09-06] MEDS: Ascorbic Acid 500 MG TABLET PO SCH ×2 (08:45→21:05)
[2017-09-06] MEDS: Multivit/Ca/Min/Fe/FA 1 TAB TABLET PO SCH (08:45)
--- NOTE | 2017-09-06 10:03 | Nephrology Progress Note ---
Date of Encounter: 09/06/17 Time of Encounter: 10:00 - Assessment and Plan (1) ESRD (end stage renal disease) on dialysis Current Visit: Yes Status: Chronic Plan for HD tomorrow Will need renal diet when diet advanced Continue strict I/Os Avoid nephrotoxins if possible (2) Anemia Current Visit: No Status: Chronic Hgb down to 7.5 Goal hgb 10-11 Transfuse per parameters Qualifiers: Anemia type: unspecified type Qualified Code(s): D64.9 - Anemia, unspecified (3) Closed left hip fracture Current Visit: Yes Status: Acute per orthopedic team Qualifiers: Encounter type: initial encounter Qualified Code(s): S72.002A - Fracture of unspecified part of neck of left femur, initial encounter for closed fracture (4) Fracture of right tibial plateau Current Visit: Yes Status: Acute per orthopedic team Qualifiers: Encounter type: initial encounter Fracture type: closed Qualified Code(s) : S82.141A - Displaced bicondylar fracture of right tibia, initial encounter for closed fracture (5) Hypokalemia Current Visit: No Status: Acute K+ 3.4 Monitor K+ closely Subjective Principal diagnosis: POD#1 s/p left hip hemiarthroplasty 09/04/17 Interval history: Patient seen and examined. Able to talk with me but confused at times. Objective - Vital Signs Vital signs: Vital Signs Temp Pulse Resp BP Pulse Ox 09/06/17 07:12 98.0 F 93 14 145/68 92 09/06/17 04:01 98.3 F 94 16 144/65 95 09/05/17 23:09 98.3 F 98 15 116/45 95 09/05/17 20:05 98.0 F 100 14 123/49 88 09/05/17 17:19 98.0 F 99 13 145/71 90 09/05/17 16:15 99 14 151/68 92 09/05/17 14:00 97.4 F L 18 124/51 09/05/17 13:15 104/49 09/05/17 13:00 98/50 09/05/17 12:45 102/52 09/05/17 12:30 106/54 09/05/17 12:15 112/53 09/05/17 12:00 127/58 09/05/17 11:45 123/56 09/05/17 11:30 99/51 01/17/18 11:15 95/48 09/05/17 11:00 103/48 09/05/17 10:54 94 09/05/17 10:45 97/50 09/05/17 10:30 95/47 09/05/17 10:15 96/48 Intake and Output 09/05/17 09/06/17 09/06/17 23:59 07:59 15:59 Intake Total 0 / 0 Output Total 0 / 0 Balance 0 / 0 Intake: Oral 0 / 0 Output: Urine 0 / 0 Other: Weight 72.6 kg 72.6 kg Blood Glucose* 163 101 101 Patient Weight 09/06/17 23:59 Weight 72.6 kg - General Appearance General appearance: Present: well-developed, well-nourished, chronically ill, frail EENT: Present: ATNC, mucous membranes moist, hearing intact, vision intact Neck: Present: supple Respiratory: Present: clear Cardiology: Present: no edema, normal S1, normal S2 Gastrointestinal: Present: no tenderness, no guarding Integumentary: Present: warm and dry Neurologic: Present: confused (at times) Psychiatric: Present: mood/affect appropriate, cooperative - Lab 09/06/17 05:48 09/06/17 05:48 Most recent lab results Calcium 9.4 mg/dL (8.6-10.3) 09/06/17 05:48 Phosphorus 5.4 mg/dL (2.7-4.5) H 09/04/17 00:45 Magnesium 1.8 mg/dL (1.6-2.6) 09/04/17 00:45 - VTE Documentation of Mechanical Device: Venous foot pump, device Consult Discharge Plan - Plan Referrals: Rudi Avila MD [Primary Care Provider] - (web request 09/04/2017)
[2017-09-06] MEDS ORDERED: Acetaminophen IV 1,000 MG/100 ML INFUS..BTL IVPB SCH (16:30)
[2017-09-06] MEDS ORDERED: Acetaminophen 325 MG TABLET PO PRN (16:36)
--- NOTE | 2017-09-06 16:40 | Orthopedics Progress Note ---
Date of Encounter: 09/06/17 Time of Encounter: 15:00 - Assessment and Plan (1) Closed left hip fracture Current Visit: Yes Status: Acute POD#2 s/p left hip hemiarthroplasty 09/04/17 dressings to be changed just before discharge or if become >50% saturated with drainage. Continue to ice as needed for swelling. Continue with therapy if patient willing/able to participate. TTWB to RLE, left BTKA will make ambulation very difficult. Continue to use abduction pillow at rest. Continue in right knee immobilizer at all times but may remove for hygiene purposes. Will follow up with Dalia Wilson PA-C in [facility] office on 09/19/17 at 9:45am. Orthopedics will sign off at this time but please call for any future questions. Qualifiers: Encounter type: initial encounter Qualified Code(s): S72.002A - Fracture of unspecified part of neck of left femur, initial encounter for closed fracture (2) Fracture of right tibial plateau Current Visit: Yes Status: Acute Continue in knee immobilizer. Toe touch weight bearing. Qualifiers: Encounter type: initial encounter Fracture type: closed Qualified Code(s) : S82.141A - Displaced bicondylar fracture of right tibia, initial encounter for closed fracture Subjective Principal diagnosis: POD#2 s/p left hip hemiarthroplasty 09/04/17 Interval history: Patient again very sleepy, opened eyes when I called her name but fell back asleep. Nurse states this is baseline with the dilaudid she has been receiving. Objective Vital signs: Vital Signs Temp Pulse Resp BP Pulse Ox 09/06/17 16:15 99.9 F H 102 13 146/68 91 09/06/17 11:24 99.6 F 92 13 124/75 93 09/06/17 07:12 98.0 F 93 14 145/68 92 09/06/17 04:01 98.3 F 94 16 144/65 95 09/05/17 23:09 98.3 F 98 15 116/45 95 09/05/17 20:05 98.0 F 100 14 123/49 88 09/05/17 17:19 98.0 F 99 13 145/71 90 Intake and Output 09/06/17 09/06/17 09/06/17 07:59 15:59 23:59 Intake Total 0 / 0 Output Total 0 / 0 Balance 0 / 0 Intake: Oral 0 / 0 Output: Urine 0 / 0 Other: Weight 72.6 kg 72.6 kg Blood Glucose* 101 162 Patient Weight 09/06/17 23:59 Weight 72.6 kg Incision: clean and dry (dressings to left hip c/d/i with no visible drainage or erythema, knee immobilizer to RLE, abduction pillow in place) - Labs CBC & BMP: 09/06/17 05:48 09/06/17 05:48 Labs: Abnormal lab results RBC 2.38 M/mcL (3.82-4.97) L 09/06/17 05:48 Hgb 7.5 g/dL (11.5-15.4) L 09/06/17 05:48 Hct 23.0 % (35.3-44.9) L 09/06/17 05:48 APTT 25.0 Seconds (26.0-36.0) L 09/04/17 00:45 Sodium 135 mEq/L (136-145) L 09/06/17 05:48 Potassium 3.4 mEq/L (3.5-5.1) L D 09/06/17 05:48 Chloride 94 mEq/L (98-107) L 09/06/17 05:48 Carbon Dioxide 31 mEq/L (23-29) H 09/06/17 05:48 Creatinine 3.50 mg/dL (0.60-1.20) H 09/06/17 05:48 Est GFR ( Amer) 16 (> 60) L 09/06/17 05:48 Est GFR (Non-Af Amer) 13 (> 60) L 09/06/17 05:48 POC Glucose 163 (58-89) H 09/05/17 20:11 Phosphorus 5.4 mg/dL (2.7-4.5) H 09/04/17 00:45 Troponin I 0.45 ng/mL (< 0.04) H* 09/04/17 13:10 B-Natriuretic Peptide 773 pg/mL (Less than 100) H 09/04/17 00:45 Albumin 3.4 g/dL (3.5-5.7) L 09/04/17 00:45 Albumin/Globulin Ratio 1.0 (1.1-2.2) L 09/04/17 00:45 Urine Clarity Turbid (Clear) A 09/03/17 09:12 Ur Specific [place] 1.008 (1.010-1.025) L 09/03/17 09:12 Urine Protein >=300 mg/dL (Neg-Trace) H 09/03/17 09:12 Urine Glucose (UA) 100 mg/dL (Normal) H 09/03/17 09:12 Urine Blood Moderate (Negative) H 09/03/17 09:12 Ur Leukocyte Esterase Moderate (Negative) H 09/03/17 09:12 Urine Microscopic RBC 3-5 per hpf (0-3) H 09/03/17 09:12 Urine Microscopic WBC 50-100 per hpf (0-3) H 09/03/17 09:12 Ur Squamous Epith Cells Many per lpf (None-Few) H 09/03/17 09:12 Urine Bacteria Moderate per hpf (None-Few) H 09/03/17 09:12 Urine Yeast Few per hpf (None Seen) H 09/03/17 09:12 - VTE Documentation of Mechanical Device: Venous foot pump, device Consult Discharge Plan - Plan Referrals: Rudi Avila MD [Primary Care Provider] - (web request 09/04/2017)
--- NOTE | 2017-09-06 19:17 | Internal Med Progress Note ---
Date of Encounter: 09/06/17 Time of Encounter: 13:00 - Assessment and plan (1) Closed left hip fracture Current Visit: Yes Status: Acute Assessment and plan: Status post hemiarthroplasty. Continue postoperative care. 7 Dilaudid due to excessive sedation. Start IV of acetaminophen. Check hemoglobin and hematocrit in the morning. Continue DVT prophylaxis. PT OT evaluation. Qualifiers: Encounter type: initial encounter Qualified Code(s): S72.002A - Fracture of unspecified part of neck of left femur, initial encounter for closed fracture (2) Fracture of right tibial plateau Current Visit: Yes Status: Acute Assessment and plan: Supportive care. Pain control. PT OT evaluation. Full Precautions. Qualifiers: Encounter type: initial encounter Fracture type: closed Qualified Code(s) : S82.141A - Displaced bicondylar fracture of right tibia, initial encounter for closed fracture (3) Status post below knee amputation of left lower extremity Current Visit: Yes Status: Acute (4) CAD in [place] artery Current Visit: Yes Status: Acute Assessment and plan: I will continue with aspirin and Plavix, metoprolol and statin. Echocardiogram shows normal ejection fraction. The appreciate cardiology input. We will follow up with cardiology. (5) Troponin level elevated Current Visit: Yes Status: Acute (6) ESRD (end stage renal disease) on dialysis Current Visit: Yes Status: Chronic Assessment and plan: Continue hemodialysis Sunday. Appreciate nephrology recommendations. - Subjective Interval history: Patient is sedated and cannot provide history due to excessive sedation secondary to pain medication. Her primary nurse she had been complaining of severe hip pain and she was given 0.5 mg of Dilaudid which relieved the pain. She is able to be aroused and state her name and place but cannot have a conversation. - Constitutional Vitals: Temp Pulse Resp BP Pulse Ox 99.9 F H 102 13 146/68 91 09/06/17 16:15 09/06/17 16:15 09/06/17 16:15 09/06/17 16:15 09/06/17 16:15 General appearance: Present: A&O X 1 - Respiratory Respiratory exam: Present: CTAB. Absent: accessory muscle use, rales, rhonchi, wheezes - Cardiovascular Cardiovascular exam: Present: RRR, +S1, +S2. Absent: diastolic murmur, gallop, rubs, systolic murmur - GI/Abdominal GI/Abdominal exam: Present: normal bowel sounds, soft, no peritoneal signs. Absent: distended, tenderness Internal Medicine: Result - Labs CBC & Chem 7: 09/06/17 05:48 09/06/17 05:48 Labs: Short CBC 09/06/17 Range/Units 05:48 WBC 7.4 (4.3-11.1) K/mcL Hgb 7.5 L (11.5-15.4) g/dL Hct 23.0 L (35.3-44.9) % Plt Count 173 (140-400) K/mcL Neutrophils # 5.6 (1.6-8.9) K/mcL BMP 09/06/17 05:48 Sodium 135 L Potassium 3.4 L D Chloride 94 L Carbon Dioxide 31 H BUN 21 Creatinine 3.50 H Glucose 100 Calcium 9.4 - ABG Interpretation ABG results: PT/INR, D-dimer PT 12.0 Seconds (9.4-12.1) 09/04/17 00:45 - VTE Documentation of Mechanical Device: Venous foot pump, device Consult Discharge Plan - Plan Referrals: Rudi Avila MD [Primary Care Provider] - (web request 09/04/2017)
[2017-09-07] MEDS: *HR* Heparin 5,000 UNIT/ML VIAL SQ SCH ×3 (05:58→22:08)
[2017-09-07 07:30] LABS: Calcium 8.9 mg/dL (8.6-10.3); Potassium 3.8 mEq/L (3.5-5.1)
[2017-09-07] MEDS: Gabapentin 100 MG CAPSULE PO SCH ×4 (08:00→22:07)
[2017-09-07] MEDS: Aspirin Enteric Coated 81 MG Tablet PO SCH (08:00)
[2017-09-07] MEDS: Ascorbic Acid 500 MG TABLET PO SCH ×2 (08:00→16:08)
[2017-09-07] MEDS: Multivit/Ca/Min/Fe/FA 1 TAB TABLET PO SCH (08:00)
[2017-09-07] MEDS ORDERED: 0.9 % Sodium Chloride 250 ML IVC PRN ×2 (08:02→12:03)
[2017-09-07 08:34] LABS: Basophils % 0.3 %; Eosinophils # 0.2 K/mcL (0.0-0.6); Eosinophils % 2.2 %; Hematocrit 20.8 % (35.3-44.9); Hemoglobin 6.8 g/dL (11.5-15.4); Immature Granulocytes % 0.3 % (0-4); Lymphocytes % 13.1 %; Mean Corpuscular HGB Conc 32.7 g/dL (31.6-35.5); Mean Corpuscular Hemoglobin 32.2 pg (28.0-33.3); Mean Corpuscular Volume 98.6 fL (83.0-100.0); Mean Platelet Volume 10.4 fL (9.4-12.4); Monocytes # 0.8 K/mcL (0.0-1.3); Monocytes % 11.6 %; Neutrophils # 5.3 K/mcL (1.6-8.9); Platelet Count 218 K/mcL (140-400); Red Blood Count 2.11 M/mcL (3.82-4.97); Red Cell Distribution Width 13.9 % (11.5-14.5); Segmented Neutrophils % 72.5 %
[2017-09-07] MEDS ORDERED: *HR* HYDROcodone/Acet 5/325 mg TABLET PO PRN (09:49)
--- NOTE | 2017-09-07 10:56 | Internal Med Progress Note ---
Date of Encounter: 09/07/17 Time of Encounter: 10:56 - Assessment and plan (1) Closed left hip fracture Current Visit: Yes Status: Acute Assessment and plan: Status post hemiarthroplasty. Continue postoperative care. Stop Dilaudid due to excessive sedation. Continue with IV of acetaminophen. Check hemoglobin and hematocrit in the morning. Continue DVT prophylaxis. PT OT evaluation. Qualifiers: Encounter type: initial encounter Qualified Code(s): S72.002A - Fracture of unspecified part of neck of left femur, initial encounter for closed fracture (2) Fracture of right tibial plateau Current Visit: Yes Status: Acute Assessment and plan: Supportive care. Pain control. PT OT evaluation. Fall Precautions. Qualifiers: Encounter type: initial encounter Fracture type: closed Qualified Code(s) : S82.141A - Displaced bicondylar fracture of right tibia, initial encounter for closed fracture (3) Status post below knee amputation of left lower extremity Current Visit: Yes Status: Acute (4) CAD in [place] artery Current Visit: Yes Status: Acute Assessment and plan: I will continue with aspirin and Plavix, metoprolol and statin. Echocardiogram shows normal ejection fraction. The appreciate cardiology input. We will follow up with cardiology. (5) Troponin level elevated Current Visit: Yes Status: Acute Assessment and plan: Appreciate cardiology recommendations. (6) ESRD (end stage renal disease) on dialysis Current Visit: Yes Status: Chronic (7) Acute blood loss anemia Current Visit: Yes Status: Acute Assessment and plan: Due to surgery, also with a component of anemia of chronic disease. Plan: Transfuse 1 unit PRBC. Repeat H&H in the morning. - Subjective Interval history: Patient is sedated and cannot provide history due to excessive sedation secondary to pain medication. She is examined while the patient is undergoing hemodialysis. She is arousable but nonverbal. - Constitutional Vitals: Temp Pulse Resp BP Pulse Ox 98.3 F 63 18 122/63 93 09/07/17 07:33 09/07/17 07:33 09/07/17 07:33 09/07/17 07:33 09/07/17 07:33 General appearance: Present: A&O X 0 - Respiratory Respiratory exam: Present: CTAB. Absent: accessory muscle use, rales, rhonchi, wheezes - Cardiovascular Cardiovascular exam: Present: RRR, +S1, +S2. Absent: diastolic murmur, gallop, rubs, systolic murmur - GI/Abdominal GI/Abdominal exam: Present: normal bowel sounds, soft, no peritoneal signs. Absent: distended, tenderness - Skin Skin exam: Present: dry, intact Internal Medicine: Result - Labs CBC & Chem 7: 09/07/17 06:43 09/07/17 06:43 Labs: Short CBC 09/07/17 Range/Units 06:43 WBC 7.3 (4.3-11.1) K/mcL Hgb 6.8 L (11.5-15.4) g/dL Hct 20.8 L (35.3-44.9) % Plt Count 218 (140-400) K/mcL Neutrophils # 5.3 (1.6-8.9) K/mcL BMP 09/07/17 06:43 Sodium 135 L Potassium 3.8 Chloride 93 L Carbon Dioxide 31 H BUN 38 H Creatinine 5.72 H Glucose 84 Calcium 8.9 - ABG Interpretation ABG results: PT/INR, D-dimer PT 12.0 Seconds (9.4-12.1) 09/04/17 00:45 - VTE Documentation of Mechanical Device: Venous foot pump, device Consult Discharge Plan - Plan Referrals: Rudi Aivla MD [Primary Care Provider] - 09/12/17 9:45 am ()
[2017-09-07] MEDS ORDERED: Albumin 25% 12.5gm/50mL 25.0 GM/100 ML IV.SOLN ONE (11:00)
[2017-09-07] MEDS: Insulin LISPRO 300 UNITS/3 ML VIAL SQ SCH ×5 (11:44→22:00)
[2017-09-07] MEDS ORDERED: Albumin 25% 25gram/100mL 25 GM/100 ML IV.SOLN IVPB ONE (12:08)
--- NOTE | 2017-09-07 13:22 | Nephrology Progress Note ---
Date of Encounter: 09/07/17 Time of Encounter: 10:45 - Assessment and Plan (1) ESRD (end stage renal disease) on dialysis Current Visit: Yes Status: Chronic HD today. Had to dec the UF goal d/t intradialytic hypotesion. added Albumin while on dialysis and cold dialysate at 36C. Pt was s/e while in the HD unit. Anemia of CKD vs Anemia post-op. Rec TARIK when her BPs allow and PRBC transfusion x1 unit while on HD today. HTN: had intradialytic hypotension, but after she returned from dialysis, the floor RN paged me regarding elevated BPs, and I recommended resuming her metoprolol BB. Hip fx: as per primary Somnolence: rec limiting sedating medications. Hx of Calciphylaxis; SHPT: recommend using Renvela and not a calcium based phos binder. She survived calciphylaxis about 1 year ago after completing sodium thiosulfate. Next HD tentatively planned for Sunday. Thank you. Subjective Principal diagnosis: POD#2 s/p left hip hemiarthroplasty 09/04/17 Interval history: Pt was s/e earlier today while on dialysis. She did not affirm N/V/D but she was largely quite and somnolent, which limited subjectiv hx. I reviewed her chart's progress notes, labs, meds, vitals, imaging and spoke with the floor RN twice. Objective - Vital Signs Vital signs: Vital Signs Temp Pulse Resp BP Pulse Ox 09/07/17 12:25 122/43 09/07/17 12:10 121/41 09/07/17 12:01 97.2 F L 92 18 109/38 09/07/17 11:55 109/38 09/07/17 11:50 97.4 F L 96 18 117/42 09/07/17 11:40 130/43 09/07/17 11:35 97 F L 104 18 118/46 09/07/17 11:25 111/32 09/07/17 11:10 109/64 09/07/17 10:55 71/51 09/07/17 10:40 98/53 09/07/17 10:25 94/28 09/07/17 10:10 122/93 09/07/17 09:55 106/51 09/07/17 09:40 120/53 09/07/17 09:25 150/62 01/19/18 09:10 98.8 F 18 147/60 09/07/17 07:33 98.3 F 63 18 122/63 93 09/07/17 05:18 98.6 F 96 18 138/72 94 09/07/17 01:40 97.9 F 97 16 135/68 90 09/06/17 21:10 98.4 F 100 16 145/74 92 09/06/17 16:15 99.9 F H 102 13 146/68 91 Intake and Output 09/06/17 09/07/17 09/07/17 23:59 07:59 15:59 Intake Total 0 / 0 1310 / 1310 Output Total 200 / 200 Balance 0 / 0 1110 / 1110 Intake: Oral 0 / 0 10 / 10 Blood Product 700 / 700 Rbcs Leuko Poor As-1 Unit 700 / 700 [id number] Intake, Rinseback and Flushes 600 / 600 Output: Catheter 200 / 200 Other: Weight 71.713 kg Blood Glucose* 109 90 Hemodialysis Net Fluid Removed 1590 (mL) Patient Weight 09/07/17 23:59 Weight 71.713 kg - General Appearance General appearance: Present: appears started age, chronically ill, fatigue, frail EENT: Present: PERRL, mucous membranes dry Neck: Present: supple Respiratory: Present: clear Cardiology: Present: no edema, regular rate, regular rhythm, normal S1, normal S2 Dialysis Vascular Access: Arteriovenous Fistula thrill: Yes bruit: Yes Gastrointestinal: Present: normoactive bowel sounds, no tenderness Integumentary: Present: warm and dry Neurologic: Present: no asterixis, confused, disoriented Musculoskeletal: Present: no erythema, no cyanosis Additional Comments: Somnolent - Lab 09/07/17 06:43 09/07/17 06:43 Most recent lab results Calcium 8.9 mg/dL (8.6-10.3) 09/07/17 06:43 Phosphorus 5.4 mg/dL (2.7-4.5) H 09/04/17 00:45 Magnesium 1.8 mg/dL (1.6-2.6) 09/04/17 00:45 - VTE Documentation of Mechanical Device: Venous foot pump, device Consult Discharge Plan - Plan Referrals: Rudi Avila MD [Primary Care Provider] - 09/12/17 9:45 am ()
[2017-09-07] MEDS ORDERED: 0.9 % Sodium Chloride 1,000 ML ONE (15:59)
[2017-09-08 03:49] LABS: Basophils % 0.6 %; Eosinophils # 0.2 K/mcL (0.0-0.6); Eosinophils % 2.1 %; Hematocrit 25.3 % (35.3-44.9); Immature Granulocytes % 0.4 % (0-4); Lymphocytes # 0.8 K/mcL (0.6-4.6); Lymphocytes % 10.9 %; Mean Corpuscular HGB Conc 31.6 g/dL (31.6-35.5); Mean Corpuscular Hemoglobin 30.1 pg (28.0-33.3); Mean Corpuscular Volume 95.1 fL (83.0-100.0); Monocytes # 0.9 K/mcL (0.0-1.3); Monocytes % 12.3 %; Neutrophils # 5.3 K/mcL (1.6-8.9); Platelet Count 241 K/mcL (140-400); Red Blood Count 2.66 M/mcL (3.82-4.97); Red Cell Distribution Width 15.7 % (11.5-14.5); Segmented Neutrophils % 73.7 %
[2017-09-08 04:12] LABS: Calcium 9.7 mg/dL (8.6-10.3); Potassium 3.6 mEq/L (3.5-5.1)
[2017-09-08] MEDS: *HR* Heparin 5,000 UNIT/ML VIAL SQ SCH ×3 (05:56→21:11)
[2017-09-08] MEDS: Gabapentin 100 MG CAPSULE PO SCH (09:47)
[2017-09-08] MEDS: Ascorbic Acid 500 MG TABLET PO SCH ×2 (09:47→17:25)
[2017-09-08] MEDS: Aspirin Enteric Coated 81 MG Tablet PO SCH (09:47)
[2017-09-08] MEDS: Multivit/Ca/Min/Fe/FA 1 TAB TABLET PO SCH (09:47)
[2017-09-08] MEDS: Insulin LISPRO 300 UNITS/3 ML VIAL SQ SCH ×4 (09:57→20:52)
--- NOTE | 2017-09-08 17:56 | Internal Med Progress Note ---
Date of Encounter: 09/08/17 Time of Encounter: 11:00 - Assessment and plan (1) Closed left hip fracture Current Visit: Yes Status: Acute Assessment and plan: Status post hemiarthroplasty. Continue postoperative care. Stop Dilaudid due to excessive sedation. Continue with IV of acetaminophen. Check hemoglobin and hematocrit in the morning. Continue DVT prophylaxis. PT OT evaluation. Qualifiers: Encounter type: initial encounter Qualified Code(s): S72.002A - Fracture of unspecified part of neck of left femur, initial encounter for closed fracture (2) Fracture of right tibial plateau Current Visit: Yes Status: Acute Assessment and plan: Supportive care. Pain control. PT OT evaluation. Fall Precautions. Qualifiers: Encounter type: initial encounter Fracture type: closed Qualified Code(s) : S82.141A - Displaced bicondylar fracture of right tibia, initial encounter for closed fracture (3) Status post below knee amputation of left lower extremity Current Visit: Yes Status: Acute Assessment and plan: PT OT evaluation. Fall precautions. (4) CAD in [place] artery Current Visit: Yes Status: Acute Assessment and plan: I will continue with aspirin and Plavix, metoprolol and statin. Echocardiogram shows normal ejection fraction. The appreciate cardiology input. We will follow up with cardiology. (5) Troponin level elevated Current Visit: Yes Status: Acute Assessment and plan: Appreciate cardiology recommendations. (6) ESRD (end stage renal disease) on dialysis Current Visit: Yes Status: Chronic Assessment and plan: Continue hemodialysis Sunday. Appreciate nephrology recommendations. (7) Acute blood loss anemia Current Visit: Yes Status: Acute Assessment and plan: Due to surgery, also with a component of anemia of chronic disease. Plan: Status post 1 unit PRBC transfusion. Repeat H&H shows appropriate response. Continue to monitor. (8) Metabolic encephalopathy Current Visit: Yes Status: Acute Assessment and plan: Likely secondary to combination of factors including anesthesia medication, sedative opioid analgesics, possibly gabapentin which is not renally dosed. I have discontinued opioid medication. Will switch gabapentin to renal doses. Instead aspiration precautions. - Subjective Interval history: Patient is more alert today. Answering simple questions, denies chest pain. Denies abdominal pain. She has been able to sit up at the edge of the bed and denied significant hip pain. - Constitutional Vitals: Temp Pulse Resp BP Pulse Ox 98.0 F 79 16 115/66 95 09/08/17 15:52 09/08/17 15:52 09/08/17 15:52 09/08/17 15:52 09/08/17 15:52 General appearance: Present: A&O X 0 - Respiratory Respiratory exam: Present: CTAB. Absent: accessory muscle use, rales, rhonchi, wheezes - Cardiovascular Cardiovascular exam: Present: RRR, +S1, +S2. Absent: diastolic murmur, gallop, rubs, systolic murmur - GI/Abdominal GI/Abdominal exam: Present: normal bowel sounds, soft, no peritoneal signs. Absent: distended, tenderness Internal Medicine: Result - Labs CBC & Chem 7: 09/08/17 03:35 09/08/17 03:35 Labs: Short CBC 09/08/17 Range/Units 03:35 WBC 7.2 (4.3-11.1) K/mcL Hgb 8.0 L (11.5-15.4) g/dL Hct 25.3 L (35.3-44.9) % Plt Count 241 (140-400) K/mcL Neutrophils # 5.3 (1.6-8.9) K/mcL BMP 09/08/17 03:35 Sodium 139 Potassium 3.6 Chloride 94 L Carbon Dioxide 32 H BUN 23 Creatinine 3.24 H Glucose 84 Calcium 9.7 - ABG Interpretation ABG results: PT/INR, D-dimer PT 12.0 Seconds (9.4-12.1) 09/04/17 00:45 - VTE Documentation of Mechanical Device: Venous foot pump, device Consult Discharge Plan - Plan Referrals: Rudi Avila MD [Primary Care Provider] - 09/12/17 9:45 am ()
[2017-09-09 04:39] LABS: Calcium 9.6 mg/dL (8.6-10.3); Potassium 3.8 mEq/L (3.5-5.1)
[2017-09-09 04:46] LABS: Eosinophils % 3.2 %; Hematocrit 24.4 % (35.3-44.9); Hemoglobin 7.8 g/dL (11.5-15.4); Immature Granulocytes % 0.3 % (0-4); Lymphocytes % 15.5 %; Mean Corpuscular Volume 96.8 fL (83.0-100.0); Mean Platelet Volume 10.1 fL (9.4-12.4); Monocytes % 11.5 %; Platelet Count 271 K/mcL (140-400); Red Blood Count 2.52 M/mcL (3.82-4.97); Red Cell Distribution Width 15.1 % (11.5-14.5); Segmented Neutrophils % 69.1 %
[2017-09-09 04:47] LABS: Basophils % 0.4 %; Eosinophils # 0.2 K/mcL (0.0-0.6); Lymphocytes # 1.2 K/mcL (0.6-4.6); Monocytes # 0.9 K/mcL (0.0-1.3); Neutrophils # 5.2 K/mcL (1.6-8.9)
[2017-09-09] MEDS: *HR* Heparin 5,000 UNIT/ML VIAL SQ SCH ×3 (05:33→22:35)
[2017-09-09] MEDS: Multivit/Ca/Min/Fe/FA 1 TAB TABLET PO SCH (09:43)
[2017-09-09] MEDS: Gabapentin 100 MG CAPSULE PO SCH (09:44)
[2017-09-09] MEDS: Ascorbic Acid 500 MG TABLET PO SCH ×2 (09:44→15:48)
[2017-09-09] MEDS: Aspirin Enteric Coated 81 MG Tablet PO SCH (09:44)
[2017-09-09] MEDS: Insulin LISPRO 300 UNITS/3 ML VIAL SQ SCH ×4 (09:44→21:57)
--- NOTE | 2017-09-09 10:52 | Event Note ---
Date of Encounter: 09/09/17 Time of Encounter: 10:51 Nephrology Chart Review ESRD on HD M/W/. Last HD was Sunday and will plan for next HD on Sunday. No new recommendations today. Will follow and see the pt tomorrow (Sunday).
[2017-09-09] MEDS: Acetaminophen 325 MG TABLET PO PRN (15:48)
--- NOTE | 2017-09-09 19:32 | Internal Med Progress Note ---
Date of Encounter: 09/09/17 Time of Encounter: 14:00 - Assessment and plan (1) Closed left hip fracture Current Visit: Yes Status: Acute Assessment and plan: Status post hemiarthroplasty. Continue postoperative care. Stop Dilaudid due to excessive sedation. Continue with IV of acetaminophen. Check hemoglobin and hematocrit in the morning. Continue DVT prophylaxis. PT OT evaluation. Qualifiers: Encounter type: initial encounter Qualified Code(s): S72.002A - Fracture of unspecified part of neck of left femur, initial encounter for closed fracture (2) Fracture of right tibial plateau Current Visit: Yes Status: Acute Assessment and plan: Supportive care. Pain control. PT OT evaluation. Fall Precautions. Qualifiers: Encounter type: initial encounter Fracture type: closed Qualified Code(s) : S82.141A - Displaced bicondylar fracture of right tibia, initial encounter for closed fracture (3) Status post below knee amputation of left lower extremity Current Visit: Yes Status: Acute Assessment and plan: PT OT evaluation. Fall precautions. (4) CAD in [place] artery Current Visit: Yes Status: Acute Assessment and plan: I will continue with aspirin and Plavix, metoprolol and statin. Echocardiogram shows normal ejection fraction. The appreciate cardiology input. We will follow up with cardiology. (5) Troponin level elevated Current Visit: Yes Status: Acute Assessment and plan: Appreciate cardiology recommendations. (6) ESRD (end stage renal disease) on dialysis Current Visit: Yes Status: Chronic Assessment and plan: Continue hemodialysis Sunday. Appreciate nephrology recommendations. (7) Acute blood loss anemia Current Visit: Yes Status: Acute Assessment and plan: Due to surgery, also with a component of anemia of chronic disease. We will transfuse to maintain hemoglobin above 8. Patient is symptomatic. Hemoglobin 7.8. We will transfuse 1 unit PRBC today. Plan: Status post 1 unit PRBC transfusion. Repeat H&H shows appropriate response. Continue to monitor. (8) Metabolic encephalopathy Current Visit: Yes Status: Acute Assessment and plan: Continues to improve. Continue to hold sedatives. Fall precautions and aspiration precautions. Likely secondary to combination of factors including anesthesia medication, sedative opioid analgesics, possibly gabapentin which is not renally dosed. - Subjective Interval history: Patient is more alert today. Answering simple questions, denies chest pain. Denies abdominal pain. - Constitutional Vitals: Temp Pulse Resp BP Pulse Ox 98.3 F 76 16 135/75 98 09/09/17 16:17 09/09/17 16:17 09/09/17 16:17 09/09/17 16:17 09/09/17 16:17 General appearance: Present: A&O X 0, A&O X 3 - Eye Eye exam: Present: PERRL, conjuntiva pink, sclera anicteric Pupils: Present: PERRL - Respiratory Respiratory exam: Present: CTAB. Absent: accessory muscle use, rales, rhonchi, wheezes - Cardiovascular Cardiovascular exam: Present: RRR, +S1, +S2. Absent: diastolic murmur, gallop, rubs, systolic murmur - GI/Abdominal GI/Abdominal exam: Present: normal bowel sounds, soft, no peritoneal signs. Absent: distended, tenderness - Extremities Exam Additional comments: Left BKA. Internal Medicine: Result - Labs CBC & Chem 7: 09/09/17 04:05 09/09/17 04:05 Labs: Short CBC 09/09/17 Range/Units 04:05 WBC 7.6 (4.3-11.1) K/mcL Hgb 7.8 L (11.5-15.4) g/dL Hct 24.4 L (35.3-44.9) % Plt Count 271 (140-400) K/mcL Neutrophils # 5.2 (1.6-8.9) K/mcL BMP 09/09/17 04:05 Sodium 136 Potassium 3.8 Chloride 93 L Carbon Dioxide 31 H BUN 44 H Creatinine 5.25 H Glucose 100 Calcium 9.6 - ABG Interpretation ABG results: PT/INR, D-dimer PT 12.0 Seconds (9.4-12.1) 09/04/17 00:45 - VTE Documentation of Mechanical Device: Venous foot pump, device Consult Discharge Plan - Plan Referrals: Rudi Avila MD [Primary Care Provider] - 09/12/17 9:45 am ()
[2017-09-09] MEDS ORDERED: 0.9 % Sodium Chloride 250 ML ONE (20:42)
[2017-09-10 04:42] LABS: Basophils % 0.4 %; Eosinophils # 0.4 K/mcL (0.0-0.6); Hematocrit 28.4 % (35.3-44.9); Hemoglobin 9.1 g/dL (11.5-15.4); Immature Granulocytes % 0.7 % (0-4); Lymphocytes # 1.1 K/mcL (0.6-4.6); Lymphocytes % 14.6 %; Mean Corpuscular Hemoglobin 29.5 pg (28.0-33.3); Mean Corpuscular Volume 92.2 fL (83.0-100.0); Monocytes # 0.7 K/mcL (0.0-1.3); Monocytes % 9.9 %; Neutrophils # 5.1 K/mcL (1.6-8.9); Platelet Count 284 K/mcL (140-400); Red Blood Count 3.08 M/mcL (3.82-4.97); Segmented Neutrophils % 69.4 %
[2017-09-10 05:09] LABS: Calcium 9.4 mg/dL (8.6-10.3); Potassium 4.1 mEq/L (3.5-5.1)
[2017-09-10] MEDS: *HR* Heparin 5,000 UNIT/ML VIAL SQ SCH ×3 (05:59→21:37)
[2017-09-10] MEDS ORDERED: 0.9 % Sodium Chloride 250 ML IVC PRN (06:54)
[2017-09-10] MEDS: Insulin LISPRO 300 UNITS/3 ML VIAL SQ SCH ×4 (07:41→21:38)
[2017-09-10] MEDS: Aspirin Enteric Coated 81 MG Tablet PO SCH (07:52)
[2017-09-10] MEDS: Multivit/Ca/Min/Fe/FA 1 TAB TABLET PO SCH (07:53)
[2017-09-10] MEDS: Gabapentin 100 MG CAPSULE PO SCH (07:53)
[2017-09-10] MEDS: Ascorbic Acid 500 MG TABLET PO SCH ×2 (07:53→17:30)
[2017-09-10] MEDS ORDERED: Albumin 25% 12.5gm/50mL 12.5 GM/50 ML IV.SOLN IVPB ONE (11:30)
[2017-09-10] MEDS ORDERED: Albumin 25% 12.5gm/50mL 12.5 GM/50 ML IV.SOLN ONE (11:37)
--- NOTE | 2017-09-10 11:54 | Nephrology Progress Note ---
Date of Encounter: 09/10/17 Time of Encounter: 09:00 - Assessment and Plan (1) ESRD (end stage renal disease) on dialysis Current Visit: Yes Status: Chronic HD today. Pt was s/e while in the HD unit. Anemia of CKD vs Anemia post-op. She had received Aranesp while hospitalized for TARIK, but this does not need to be given at an ECF, since she'll go back on EPO at the dialysis unit with each dialysis treatment. HTN: cont the BB. Hip fx: as per primary Somnolence: much improved Hx of Calciphylaxis (resolved) and SHPT: recommend using Renvela and not a calcium based phos binder. She survived calciphylaxis about 1 year ago after completing sodium thiosulfate. Next HD tentatively planned for Sunday. Thank you. Subjective Principal diagnosis: POD#2 s/p left hip hemiarthroplasty 09/04/17 Interval history: Pt was s/e earlier today while on dialysis. She did not affirm N/V/D or cramping. She was actually eating breakfast in the dialysis unit. Overall she reported feeling more awake and feeling better. Objective - Vital Signs Vital signs: Vital Signs Temp Pulse Resp BP Pulse Ox 09/10/17 07:36 97.4 F L 71 15 128/68 95 09/10/17 03:57 97.5 F L 64 16 138/67 94 09/10/17 00:14 97.0 F L 61 16 129/71 94 09/09/17 23:30 98.2 F 63 16 140/69 96 09/09/17 21:04 97.9 F 61 16 115/64 96 09/09/17 20:55 98.0 F 67 16 125/68 96 09/09/17 16:17 98.3 F 76 16 135/75 98 Intake and Output 09/09/17 09/10/17 09/10/17 23:59 07:59 15:59 Intake Total 0 / 0 350 / 350 Balance 0 / 0 350 / 350 Intake: Blood Product 0 / 0 350 / 350 Rbcs Leuko Poor As-1 Unit 0 / 0 350 / 350 [id number] Other: Weight 72.9 kg Blood Glucose* 127 95 Patient Weight 09/10/17 23:59 Weight 72.9 kg - General Appearance General appearance: Present: well-developed, well-nourished (d), appears started age, chronically ill, fatigue EENT: Present: ATNC, PERRL, mucous membranes moist Neck: Present: supple Respiratory: Present: clear Cardiology: Present: no edema, regular rate, regular rhythm, normal S1, normal S2 Dialysis Vascular Access: Arteriovenous Fistula thrill: Yes bruit: Yes Gastrointestinal: Present: normoactive bowel sounds, no tenderness Integumentary: Present: warm and dry Neurologic: Present: no asterixis, alert and oriented x3 Musculoskeletal: Present: no cyanosis, no clubbing Psychiatric: Present: mood/affect appropriate, cooperative - Lab 09/10/17 04:09 09/10/17 04:09 Most recent lab results Calcium 9.4 mg/dL (8.6-10.3) 09/10/17 04:09 Phosphorus 5.4 mg/dL (2.7-4.5) H 09/04/17 00:45 Magnesium 1.8 mg/dL (1.6-2.6) 09/04/17 00:45 - VTE Documentation of Mechanical Device: Venous foot pump, device Consult Discharge Plan - Plan Additional Instructions: Orthopedic service recommendations for postop care: Continue with therapy if patient willing/able to participate. TTWB to RLE, left BTKA will make ambulation very difficult. Continue to use abduction pillow at rest. Continue in right knee immobilizer at all times but may remove for hygiene purposes. Will follow up with Dalia Wilson PA-C in [facility] office on 09/19/17 at 9:45am. Follow-up with your PCP within 1 week of discharge. He had been prescribed on heparin injections twice daily for 1 week to prevent blood clots. Referrals: Rudi Avila MD [Primary Care Provider] - 09/12/17 9:45 am () Prescriptions: Acetaminophen [Tylenol] 650 mg PO Q6HR PRN #30 tablet PRN Reason: Mild to moderate pain Heparin 5,000 unit SQ Q12H #14 vial HYDROcodone/Acet 5/325 mg [[place] 5-325 mg] 1 tab PO Q6H PRN #20 tab PRN Reason: Severe pain
[2017-09-10] MEDS ORDERED: 0.9 % Sodium Chloride 2,000 ML ONE (18:05)
--- NOTE | 2017-09-10 18:56 | Discharge Summary ---
Date of Encounter: 09/10/17 Time of Encounter: 16:52 - Discharge Diagnosis (1) Closed left hip fracture Priority: Primary Status: Acute Qualifiers: Encounter type: initial encounter Qualified Code(s): S72.002A - Fracture of unspecified part of neck of left femur, initial encounter for closed fracture (2) Fracture of right tibial plateau Priority: Secondary Status: Acute Qualifiers: Encounter type: initial encounter Fracture type: closed Qualified Code(s) : S82.141A - Displaced bicondylar fracture of right tibia, initial encounter for closed fracture (3) Status post below knee amputation of left lower extremity Priority: Secondary Status: Acute (4) CAD in [place] artery Priority: Secondary Status: Acute (5) Troponin level elevated Priority: Secondary Status: Acute (6) ESRD (end stage renal disease) on dialysis Priority: Secondary Status: Chronic (7) Acute blood loss anemia Priority: Secondary Status: Acute (8) Metabolic encephalopathy Priority: Secondary Status: Acute - Discharge Medications Prescriptions: Heparin 5,000 unit SQ Q12H #14 vial Home Medications: Acetaminophen [Tylenol] 1,000 mg PO HS PRN 10/09/16 [History] Lidocaine/Prilocaine [Emla] 1 appl TP ONCE PRN 10/09/16 [History] Clopidogrel [Plavix] 75 mg PO DAILY tablet 10/16/16 [Rx] DiphenhydraMINE [Benadryl] 25 mg PO HS PRN #10 02/05/17 [Rx] Gabapentin [Neurontin] 100 mg PO TID #30 02/05/17 [Rx] Citalopram [CeleXA] 20 mg PO DAILY 03/30/17 [History] Metoprolol [Lopressor] 25 mg PO BID 03/30/17 [History] Ondansetron HCl [Zofran] 4 mg PO TID #15 tablet 05/13/17 [Rx] Aspirin Enteric Coated [Aspirin EC] 81 mg PO DAILY #30 tablet 06/11/17 [Rx] Multivitamin [Multivitamins] 1 cap PO DAILY 09/03/17 [History] Sevelamer [Renvela] 3 tab PO TIDWM 09/03/17 [History] Heparin 5,000 unit SQ Q12H #14 vial 09/10/17 [Rx] Allergies/Adverse Reactions: 3 Allergy/AdvReac Type Severity Reaction Status Date / Time Penicillins Allergy Hives Verified 09/03/17 10:29 Date of admission: 09/03/17 13:38 Primary care physician: Rudi Avila MD Consults: 09/04/17 22:28 Consult to Nurse Navigator [CONS] Routine Comment: ortho navigator Consult to Occupational Therapy [CONS] Routine Comment: Evaluate, develop and implement POC Reason for Consult: total hip replacement Consult to Physical Therapy [CONS] Routine Comment: Evaluate, develop and implement POC Reason for Consult: total hip replacement Consult to Music Publisher [CONS] Routine Reason for SW Consult: post op joint replacement RT Post Op Consult [CONS] Routine 09/05/17 09:15 Consult to Dialysis [CONS] ONCE 09/05/17 09:51 Consult to Nephrology [CONS] Routine Consulting Provider: Cathy Chao/PAMELA/ULISES/PAULINO Reason for Consult: ESRD Call Completed: No 09/06/17 10:21 Consult to Invasive Line Access Team [CONS] Routine Reason for Consult: powerglide insertion Line Type: EPIV 09/07/17 08:15 Consult to Dialysis [CONS] ONCE 09/07/17 12:15 Consult to Dialysis [CONS] ONCE 09/10/17 07:00 Consult to Dialysis [CONS] ONCE - Patient Status Disposition: Transfer SNF Condition: Fair Functional capacity at discharge: bed bound (Increase activity per PT recommendations as tolerated) Overall status at discharge: patient is not back to baseline - Discharge Instructions Follow Up With: Rudi Avila MD [Primary Care Provider] - 09/12/17 9:45 am () Additional Instructions: Orthopedic service recommendations for postop care: Continue with therapy if patient willing/able to participate. TTWB to RLE, left BTKA will make ambulation very difficult. Continue to use abduction pillow at rest. Continue in right knee immobilizer at all times but may remove for hygiene purposes. Will follow up with Dalia Wilson PA-C in [facility] office on 09/19/17 at 9:45am. Follow-up with your PCP within 1 week of discharge. He had been prescribed on heparin injections twice daily for 1 week to prevent blood clots. - Diet and Activity Activity: as per physical therapy, increase activity as tolerated Diet: low fat, low cholesterol, low salt diet (Renal diet) Hospital course: Ms. Eng is a 71 year old female with past medical history significant for hypertension, end-stage renal disease on hemodialysis, dyslipidemia, prior left BKA who was brought to the hospital status post fall complaining of bilateral leg pain. The patient related that she was seen on the side of the bed putting on her shoes and she slipped to the floor landing on her side. She was found to have a acute fracture of the right tibial plateau and a left hip fracture. She was admitted to the medical service. Orthopedic service was consulted. She had a slight increase in troponin. Cardiology was consulted for preop clearance. She had a left hemiarthroplasty performed on 09/04/2017. She tolerated the procedure well however she was remained heavily sedated for 2 days postop, her mental status slightly improving. Today her mental status is closer to baseline. She received hemodialysis throughout her hospitalization and according to her Sunday schedule. She was evaluated by physical therapy and occupational therapy and was deemed beneficial to transfer the patient to a half-way facility for rehabilitation. [facility]. - Time Spent with Patient Total time spent providing and/or coordinating discharge services: Greater than 30 minutes (I have spent 40 minutes coordinating this discharge.) - Constitutional Vitals: Temp Pulse Resp BP Pulse Ox 97.8 F 88 16 134/73 95 09/10/17 16:44 09/10/17 16:44 09/10/17 16:44 09/10/17 16:44 09/10/17 16:44 General appearance: Present: A&O X 1 - Respiratory Respiratory exam: Present: decreased breath sounds, CTAB. Absent: accessory muscle use, rales, rhonchi, wheezes - Cardiovascular Cardiovascular exam: Present: RRR, +S1, +S2. Absent: diastolic murmur, gallop, rubs, systolic murmur - GI/Abdominal GI/Abdominal exam: Present: normal bowel sounds, soft, no peritoneal signs. Absent: distended, tenderness - Extremities Exam Additional comments: Left BKA, - VTE Documentation of Mechanical Device: Venous foot pump, device
--- NOTE | 2017-09-10 19:25 | Physician Discharge Referral ---
ExtendedCare Referral Info Provider in Charge after Transfer: PCP Institutional Level of Care: Skilled - Diagnosis (1) Closed left hip fracture Status: Acute (2) Fracture of right tibial plateau Status: Acute (3) Status post below knee amputation of left lower extremity Status: Acute (4) CAD in [place] artery Status: Acute (5) Troponin level elevated Status: Acute (6) ESRD (end stage renal disease) on dialysis Status: Chronic (7) Acute blood loss anemia Status: Acute (8) Metabolic encephalopathy Status: Acute - Transfer Medications Prescriptions: Heparin 5,000 unit SQ Q12H #14 vial Home Medications: Acetaminophen [Tylenol] 1,000 mg PO HS PRN 10/09/16 [History] Lidocaine/Prilocaine [Emla] 1 appl TP ONCE PRN 10/09/16 [History] Clopidogrel [Plavix] 75 mg PO DAILY tablet 10/16/16 [Rx] DiphenhydraMINE [Benadryl] 25 mg PO HS PRN #10 02/05/17 [Rx] Gabapentin [Neurontin] 100 mg PO TID #30 02/05/17 [Rx] Citalopram [CeleXA] 20 mg PO DAILY 03/30/17 [History] Metoprolol [Lopressor] 25 mg PO BID 03/30/17 [History] Ondansetron HCl [Zofran] 4 mg PO TID #15 tablet 05/13/17 [Rx] Aspirin Enteric Coated [Aspirin EC] 81 mg PO DAILY #30 tablet. 06/11/17 [Rx] Multivitamin [Multivitamins] 1 cap PO DAILY 09/03/17 [History] Sevelamer [Renvela] 3 tab PO TIDWM 09/03/17 [History] Heparin 5,000 unit SQ Q12H #14 vial 09/10/17 [Rx] Allergies/Adverse Reactions: 3 Allergy/AdvReac Type Severity Reaction Status Date / Time Penicillins Allergy Hives Verified 09/03/17 10:29 - Respiratory Orders Smoking Cessation: Smoking cessation has been advised. For more information, call the [place] Tobacco Quit Line at 0-008-QTJR-NOW. - Advance Directives Living Will: Yes Power of Elastic Attacher Zigzag: Yes Code Status: Full Code - Mobility Orders Other (Per PT evaluation) - Rehabiliation Orders Rehab Potential: Fair Rehab Orders: Evaluation for Physical Therapy, Evaluation for Occupational Therapy - Treatments Skin tear care topically daily PRN per policy - Diet Orders No Added Salt (DA), Renal CERTIFICATION: I certify that the transfer of the above named patient to an Extended Care Facility is necessary for the continuing treatment of the diagnosis listed. The above information is true and accurate reflection of patient's current condition. Confidential - Redisclosure prohibited without a patient's written consent.
[2017-09-11] MEDS: *HR* Heparin 5,000 UNIT/ML VIAL SQ SCH (05:03)
[2017-09-11] MEDS: Insulin LISPRO 300 UNITS/3 ML VIAL SQ SCH ×2 (08:53→13:10)
[2017-09-11] MEDS: Multivit/Ca/Min/Fe/FA 1 TAB TABLET PO SCH (09:49)
[2017-09-11] MEDS: Aspirin Enteric Coated 81 MG Tablet PO SCH (09:50)
[2017-09-11] MEDS: Acetaminophen 325 MG TABLET PO PRN (09:50)
[2017-09-11] MEDS: Gabapentin 100 MG CAPSULE PO SCH (09:50)
[2017-09-11] MEDS: Ascorbic Acid 500 MG TABLET PO SCH (09:50)
[2017-09-11 11:21] VITALS: BP 128/62
[2017-09-11] MEDS ORDERED: Bisacodyl 10 MG RECTAL SUPPOSITORY RC ONE (12:37)
== END 2017-09-11 15:17 | DRG 469 ==
LOC: EMEROO 06:02 → 2ANU 06:02 → SUATTDRO 13:38
PROVIDERS: ADMIT Nurse Practitioner Family; ATTEND Internal Medicine

== ENCOUNTER 2017-09-20 13:55 | Observation (INO) ==
[2017-09-20] MEDS ORDERED: *HR* OxyCODONE/APAP 5/325 TABLET PO ONE (14:17)
--- NOTE | 2017-09-20 14:20 | Emergency Department Note ---
Disposition Clinical Impression: ESRD (end stage renal disease) on dialysis GI bleed Qualifiers: GI bleed type/associated pathology: unspecified gastrointestinal hemorrhage type Qualified Code(s): K92.2 - Gastrointestinal hemorrhage, unspecified Anemia Qualifiers: Anemia type: unspecified type Qualified Code(s): D64.9 - Anemia, unspecified Disposition: Admitted As Inpatient Condition: Fair Referrals: Rudi Avila MD [Primary Care Provider] - Forms: ED Satisfaction Letter Time of Disposition: 16:09 General Adult HPI - General Chief complaint: ED Recheck/Abnormal Lab/Rx Stated complaint: Low HGB Time Seen by Provider: 09/20/17 13:58 Source: patient Limitations: no limitations Nursing Notes Reviewed: Yes Vital Signs Reviewed: Yes - History of Present Illness HPI Narrative: 71-year-old female presents after a hemoglobin and outpatient showed 6.9, her last lobe was 9, this was about 2 weeks ago, revealing global from yesterday showed 6.9 she has end-stage renal disease, follows with Dr. Navarrete, and has had dialysis Sunday, she has also had a left below the knee amputation, has a history of calciphylaxis on records review, she denies chest pain but does have a generalized weakness feeling. She denies focal weakness, fever chills or shortness of breath. sHe also denies hematochezia or melena. Pt Subjective Complaint: Low Hgb Onset (ago): day(s) Pain Severity: moderate Pain Scale: 5 Quality: aching Improves with: nothing Worsens with: nothing Associated symptoms: Reports: confusion, weakness. Denies: chest pain, cough, diaphoresis, loss of appetite, malaise, nausea/vomiting - Related Data Home Medications Medication Instructions Recorded Confirmed Lidocaine/Prilocaine [Emla] 1 appl TP ONCE PRN 10/09/16 09/20/17 Citalopram [CeleXA] 20 mg PO DAILY 03/30/17 09/20/17 Metoprolol [Lopressor] 25 mg PO BID 03/30/17 09/20/17 Multivitamin [Multivitamins] 1 cap PO DAILY 09/03/17 09/20/17 Sevelamer [Renvela] 2,400 mg PO TIDWM 09/03/17 09/20/17 Docusate [Colace] 100 mg PO BID PRN 09/20/17 09/20/17 Ondansetron HCl [Zofran] 4 mg PO TID PRN 09/20/17 09/20/17 Previous Rx's Medication Instructions Recorded Clopidogrel [Plavix] 75 mg PO DAILY tablet 10/16/16 DiphenhydraMINE [Benadryl] 25 mg PO HS PRN #10 02/05/17 Gabapentin [Neurontin] 100 mg PO TID #30 02/05/17 Aspirin Enteric Coated [Aspirin EC] 81 mg PO DAILY #30 tablet. 06/11/17 Acetaminophen [Tylenol] 650 mg PO Q6HR PRN #30 tablet 09/10/17 HYDROcodone/Acet 5/325 mg [[place] 1 tab PO Q6H PRN #20 tab 09/10/17 5-325 mg] Heparin 5,000 unit SQ Q12H #14 vial 09/10/17 Allergies Allergy/AdvReac Type Severity Reaction Status Date / Time Penicillins Allergy Hives Verified 09/03/17 10:29 All systems ED: reviewed and negative except as stated. Review of Systems: As Per HPI Constitutional: Reports: weakness. Denies: fever, chills Eyes: Denies: eye pain ENT ED: Denies: ear pain Cardiovascular: Denies: chest pain Respiratory: Denies: cough, dyspnea Gastrointestinal: Denies: abdominal pain Genitourinary: Denies: urgency Musculoskeletal: Denies: back pain, joint swelling Integumentary: Denies: rash, abrasion Neurological: Reports: as per HPI, weakness. Denies: headache Psychiatric: Denies: anxiety Endocrine: Denies: fatigue Past Medical History - Past Medical History Attestation: Yes The following information was validated with the patient. Source: patient Medical history: Reports: coronary artery disease, diabetes, dialysis, hypertension, renal disease, other Surgical history: Reports: carotid endarterectomy, hysterectomy, orthopedic, other, thyroidectomy, other Psychiatric history: Reports: anxiety, depression FILM TOUCH UP INSPECTOR history: Reports: no FILM TOUCH UP INSPECTOR history - Social History Smoking Status: Never smoker Smokeless Tobacco Status: No Alcohol use: Reports: none Drug use: Reports: none Physical Exam Constitutional: Elderly cachectic female appears dehydrated. 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, brown stool, guaic + MSK: Left BKA right leg post surgery in an orthopedic boot, cap refill dinihshed distally Neuro: A&O3, CNII-XII grossly intact, JOYCE Skin: Poor skin turgor, L fistula - General Limitations: no limitations General appearance: alert, in no apparent distress Course Course Narrative: 71-year-old female with generalized weakness, also has low hemoglobin, she denies hematochezia or melena, CBC BMP basic lab work chest x-ray, stool guaiac were ordered basic lab work as well as nephrology consult given that she was anemic at 6.9 she dropped from 9.2, chlamydia and acute cause precipitating this anemia is unclear at this time, her stool does appear to be brown and rectal exam. - Reevaluation(s) Reevaluation #1: Admitted to the hospitalist service , after consultation with Dr. Sánchez , plan is rolling off on transfusion at this time and tell further evaluation given her hemoglobin 7.7, stool guaiac did end up being positive Vital Signs Temperature 97.8 F 09/20/17 13:56 Pulse Rate 75 09/20/17 13:56 Respiratory Rate 18 09/20/17 13:56 Blood Pressure 132/54 09/20/17 13:56 O2 Sat by Pulse Oximetry 100 09/20/17 13:56 Temperature 97.8 F 09/20/17 13:56 Pulse Rate 81 09/20/17 15:31 Respiratory Rate 16 09/20/17 15:31 Blood Pressure 126/49 09/20/17 15:31 O2 Sat by Pulse Oximetry 97 09/20/17 15:31 Oxygen Delivery Oxygen Delivery Room Air Medical Decision Making - Medical Records Medical records reviewed: Yes I reviewed the patient's medical records. - Lab Data Lab results reviewed: Yes I reviewed the patient's lab results. Result diagrams: 09/20/17 14:20 09/20/17 14:20 Lab Results 09/20/17 09/20/17 09/20/17 Range/Units 14:20 14:20 14:20 WBC 4.7 (4.3-11.1) K/mcL RBC 2.47 L (3.82-4.97) M/mcL Hgb 7.7 L (11.5-15.4) g/dL Hct 24.6 L (35.3-44.9) % MCV 99.6 D (83.0-100.0) fL MCH 31.2 (28.0-33.3) pg MCHC 31.3 L (31.6-35.5) g/dL RDW 16.4 H (11.5-14.5) % Plt Count 293 (140-400) K/mcL MPV 9.2 L (9.4-12.4) fL Immature Gran % 0.9 (0-4) % Seg Neutrophils % 67.1 % Lymphocytes % 17.6 % Monocytes % 11.4 % Eosinophils % 2.4 % Basophils % 0.6 % Neutrophils # 3.1 (1.6-8.9) K/mcL Lymphocytes # 0.8 (0.6-4.6) K/mcL Monocytes # 0.5 (0.0-1.3) K/mcL Eosinophils # 0.1 (0.0-0.6) K/mcL Basophils # 0.0 (0.0-0.2) K/mcL PT 10.9 (9.4-12.1) Seconds INR 1.0 APTT 24.8 L (26.0-36.0) Seconds Sodium (136-145) mEq/L Potassium (3.5-5.1) mEq/L Chloride (98-107) mEq/L Carbon Dioxide (23-29) mEq/L BUN (8-23) mg/dL Creatinine (0.60-1.20) mg/dL Est GFR ( Amer) (> 60) Est GFR (Non-Af Amer) (> 60) BUN/Creatinine Ratio (6-26) Glucose (70-105) mg/dL Calculated Osmolality (280-300) Calcium (8.6-10.3) mg/dL Troponin I (< 0.04) ng/mL Stool Occult Blood (Negative) Blood Type B POSITIVE Antibody Screen NEGATIVE Crossmatch See Detail 09/20/17 09/20/17 09/20/17 Range/Units 14:20 14:20 15:37 WBC (4.3-11.1) K/mcL RBC (3.82-4.97) M/mcL Hgb (11.5-15.4) g/dL Hct (35.3-44.9) % MCV (83.0-100.0) fL MCH (28.0-33.3) pg MCHC (31.6-35.5) g/dL RDW (11.5-14.5) % Plt Count (140-400) K/mcL MPV (9.4-12.4) fL Immature Gran % (0-4) % Seg Neutrophils % % Lymphocytes % % Monocytes % % Eosinophils % % Basophils % % Neutrophils # (1.6-8.9) K/mcL Lymphocytes # (0.6-4.6) K/mcL Monocytes # (0.0-1.3) K/mcL Eosinophils # (0.0-0.6) K/mcL Basophils # (0.0-0.2) K/mcL PT (9.4-12.1) Seconds INR APTT (26.0-36.0) Seconds Sodium 136 (136-145) mEq/L Potassium 4.1 (3.5-5.1) mEq/L Chloride 99 (98-107) mEq/L Carbon Dioxide 31 H (23-29) mEq/L BUN 17 (8-23) mg/dL Creatinine 3.68 H (0.60-1.20) mg/dL Est GFR ( Amer) 15 L (> 60) Est GFR (Non-Af Amer) 12 L (> 60) BUN/Creatinine Ratio 5 L (6-26) Glucose 86 (70-105) mg/dL Calculated Osmolality 283 (280-300) Calcium 8.8 (8.6-10.3) mg/dL Troponin I < 0.03 (< 0.04) ng/mL Stool Occult Blood Positive A (Negative) Blood Type Antibody Screen Crossmatch - Radiology Data Radiology results reviewed: Yes I reviewed the patient's radiology results. Chest X-Ray 09/20/17 14:18 IMPRESSION: 1. Cardiomegaly with mild vascular congestion. D/ / Usama Coronel MD / Usama Coronel MD Interpreting Provider: Usama Coronel MD - EKG Data EKG #1 EKG attestation: Yes I reviewed and interpreted this EKG. EKG shows normal: sinus rhythm Rate: normal Rhythm: NSR [place]/QRS: normal (76 bpm CA 144 QRS 97 QTC 434 no acute skin changes left axis,)
[2017-09-20 14:36] LABS: Basophils % 0.6 %; Eosinophils # 0.1 K/mcL (0.0-0.6); Eosinophils % 2.4 %; Hematocrit 24.6 % (35.3-44.9); Immature Granulocytes % 0.9 % (0-4); Lymphocytes # 0.8 K/mcL (0.6-4.6); Lymphocytes % 17.6 %; Mean Corpuscular HGB Conc 31.3 g/dL (31.6-35.5); Mean Corpuscular Hemoglobin 31.2 pg (28.0-33.3); Mean Platelet Volume 9.2 fL (9.4-12.4); Monocytes # 0.5 K/mcL (0.0-1.3); Monocytes % 11.4 %; Neutrophils # 3.1 K/mcL (1.6-8.9); Platelet Count 293 K/mcL (140-400); Red Blood Count 2.47 M/mcL (3.82-4.97); Red Cell Distribution Width 16.4 % (11.5-14.5); Segmented Neutrophils % 67.1 %
--- NOTE | 2017-09-20 14:42 | Emergency Department Note ---
START Narrative - START START: I examined this patient and my medical decision-making was reviewed with the Resident Physician. I agree with the documented findings, disposition and treatment plan as described except to the extent set forth below. 8-year-old female presents emergency room for anemia. States her hemoglobin has dropped down into the 6 range. She was transfused about one month ago. She is on hemodialysis 3 times a week. She was told her anemia was secondary to blood loss from renal failure. She is more symptomatic today. She feels weak and rundown. She denies any blood in her stool. She states they checked her stool in the past that was negative. She follows with nephrology. We will run basic lab work to confirm her hemoglobin level as well as check a rectal exam and consult with nephrology.
[2017-09-20 14:43] LABS: Prothrombin Time 10.9 Seconds (9.4-12.1)
[2017-09-20 14:46] LABS: Activated Partial Thrombo Time 24.8 Seconds (26.0-36.0)
[2017-09-20 15:00] LABS: Calcium 8.8 mg/dL (8.6-10.3); Potassium 4.1 mEq/L (3.5-5.1)
[2017-09-20 15:05] LABS: Hemoglobin 7.7 g/dL (11.5-15.4); Mean Corpuscular Volume 99.6 fL (83.0-100.0)
[2017-09-20] MEDS ORDERED: Naloxone 0.4 MG/ML INJ IVP PRN (15:38)
[2017-09-20] MEDS ORDERED: Dextrose Gel 15 GM/37.5 ML TUBE PO PRN ×2 (15:39)
[2017-09-20] MEDS ORDERED: D5% in Water 1,000 ML IVC PRN (15:39)
[2017-09-20] MEDS ORDERED: *HR* Dextrose 50 % in Water (Syg) 50 ML SYRINGE IVP PRN (15:39)
--- NOTE | 2017-09-20 15:45 | Internal Med History&Physical ---
Date of Encounter: 09/20/17 Time of Encounter: 15:30 Assessment and Plan (1) Anemia in chronic kidney disease, on chronic dialysis Current visit: Yes Status: Acute Pt reported of having history of anemia of chronic disease and currently on Aranesp therapy during HD no acute blood loss reported will obtain occult stool will transfuse one unit PRBC today nephrology evaluation requested by ER physician will closely monitor (2) End stage renal disease on dialysis Current visit: Yes Status: Chronic Pt on HD on MWF nephrology evaluation requested for continuation of HD (3) DVT prophylaxis Current visit: No Status: Acute SCD (4) Generalized weakness Current visit: No Status: Acute secondary to worsening anemia plan as listed above (5) Essential hypertension Current visit: No Status: Chronic BP within acceptable range will continue home medications (6) T2DM (type 2 diabetes mellitus) Current visit: No Status: Chronic Pt's last HbA1C in March 2017 was 4.5 will closely monitor FS and BG will repeat HbA1C Qualifiers: Diabetes mellitus complication status: with kidney complications Diabetes mellitus complication detail: with chronic kidney disease Diabetes mellitus long term care phlebotomist insulin use: unspecified long term care phlebotomist insulin use status Chronic kidney disease stage: on chronic dialysis Qualified Code(s): E11.22 - Type 2 diabetes mellitus with diabetic chronic kidney disease; N18.6 - End stage renal disease Internal Medicine - H&P: HPI Chief complaint: weakness, anemia Admitted From: Home Plans for Post Hospital Care: Home History of present illness: Ms. Eng is a 71 year old female with PMH of ESRD on HD, DM, HTN, Anemia in ESRD who was asked to come to the ER by primary special education professional for management of low hgb. Pt states she had hemodialysis yesterday and received a call from her special education professional's office to go to the ER. She reports of having worsening generalized weakness for the last few days. States she has history of anemia requiring transfusions in the past. At this time, pt is resting in bed, she is pale appearing, appears weak, but denies any chest pain or shortness of breath. She is noted to have Hgb of 7.7 improved from 6.9 from yesterday (09/19/17). Given her clinical presentation, will transfuse one unit PRBC. Past Med Surg Social Fam HX - Past Medical History Medical history: coronary artery disease, diabetes, dialysis, hypertension, renal disease, other Psychiatric history: anxiety, depression - Past Surgical History Surgical History: carotid endarterectomy, hysterectomy, orthopedic, other, thyroidectomy, other - Social History Smoking Status: Never smoker Smokeless Tobacco Status: No Alcohol use: none Drug use: none - Family History Mother Adopted: No Family Member Ethnicity: Non- Living Status: Hx Family Cardiac Disorders: No Hx Family Respiratory Disorders: Yes Hx Family Cancer: Yes Hx Family GI Disorders: No Hx Family Endocrine Disorder: No Hx Family Neuromuscular Disorders: No Hx Family Neurologic Disorders: No Hx Family HEENT Disorders: No Hx Family Autoimmune Disorders: No Father Adopted: No Family Member Ethnicity: Non- Living Status: Hx Family Cardiac Disorders: Yes Hx Family Respiratory Disorders: Yes Hx Family Cancer: No Hx Family GI Disorders: No Hx Family Endocrine Disorder: Yes Hx Family Neuromuscular Disorders: No Hx Family Neurologic Disorders: Yes Hx Family HEENT Disorders: No Hx Family Autoimmune Disorders: No Internal Medicine - H&P: Meds Acetaminophen [Tylenol] 1,000 mg PO HS PRN 10/09/16 [History] Lidocaine/Prilocaine [Emla] 1 appl TP ONCE PRN 10/09/16 [History] Clopidogrel [Plavix] 75 mg PO DAILY tablet 10/16/16 [Rx] DiphenhydraMINE [Benadryl] 25 mg PO HS PRN #10 02/05/17 [Rx] Gabapentin [Neurontin] 100 mg PO TID #30 02/05/17 [Rx] Citalopram [CeleXA] 20 mg PO DAILY 03/30/17 [History] Metoprolol [Lopressor] 25 mg PO BID 03/30/17 [History] Ondansetron HCl [Zofran] 4 mg PO TID #15 tablet 05/13/17 [Rx] Aspirin Enteric Coated [Aspirin EC] 81 mg PO DAILY #30 tablet. 06/11/17 [Rx] Multivitamin [Multivitamins] 1 cap PO DAILY 09/03/17 [History] Sevelamer [Renvela] 3 tab PO TIDWM 09/03/17 [History] Acetaminophen [Tylenol] 650 mg PO Q6HR PRN #30 tablet 09/10/17 [Rx] HYDROcodone/Acet 5/325 mg [[place] 5-325 mg] 1 tab PO Q6H PRN #20 tab 09/10/17 [Rx ] Heparin 5,000 unit SQ Q12H #14 vial 09/10/17 [Rx] Docusate [Colace] 100 mg PO BID #60 capsule 09/11/17 [Rx] 3 Allergy/AdvReac Type Severity Reaction Status Date / Time Penicillins Allergy Hives Verified 09/03/17 10:29 All Systems PM: A 10-system review of systems was performed and is negative for pertinent findings except as documented above in the HPI. - Constitutional Constitutional: as per HPI - Constitutional Vitals: Temp Pulse Resp BP Pulse Ox 97.8 F 81 16 126/49 97 09/20/17 13:56 09/20/17 15:31 09/20/17 15:31 09/20/17 15:31 09/20/17 15:31 General appearance: Present: A&O X 3 (frail appearing female, weak), no acute distress, answers questions appropriately - Head Head exam: Present: atraumatic, normocephalic - Respiratory Respiratory exam: Present: CTAB. Absent: respiratory distress, wheezes - Cardiovascular Cardiovascular exam: Present: RRR, +S1, +S2, systolic murmur - GI/Abdominal GI/Abdominal exam: Present: normal bowel sounds, soft, no peritoneal signs. Absent: distended, tenderness - Extremities Exam Extremities exam: Present: warm, radial pulses palpable and symmetrical. Absent : calf tenderness, cyanotic, pedal edema Additional comments: s/p left BKA - Neurological Exam Neurological exam: Present: alert, oriented X3 - Psychiatric Psychiatric exam: Present: normal affect, normal mood Internal Med - H&P Results - Labs CBC & Chem 7: 09/20/17 14:20 09/20/17 14:20 Labs: Short CBC 09/20/17 Range/Units 14:20 WBC 4.7 (4.3-11.1) K/mcL Hgb 7.7 L (11.5-15.4) g/dL Hct 24.6 L (35.3-44.9) % Plt Count 293 (140-400) K/mcL Neutrophils # 3.1 (1.6-8.9) K/mcL BMP 09/20/17 14:20 Sodium 136 Potassium 4.1 Chloride 99 Carbon Dioxide 31 H BUN 17 Creatinine 3.68 H Glucose 86 Calcium 8.8 Cardiac Enzymes 09/20/17 Range/Units 14:20 Troponin I < 0.03 (< 0.04) ng/mL - Impressions ITS Impressions Chest X-Ray 09/20/17 14:18 IMPRESSION: 1. Cardiomegaly with mild vascular congestion. D/ / Usama Coronel MD / Usama Coronel MD Interpreting Provider: Usama Coronel MD
[2017-09-20] MEDS ORDERED: Ondansetron ODT 4 MG TAB.RAPDIS PO PRN (15:50)
[2017-09-20] MEDS ORDERED: Acetaminophen 325 MG TABLET PO PRN (15:50)
[2017-09-20] MEDS ORDERED: 0.9 % Sodium Chloride 250 ML ONE (17:53)
[2017-09-20] MEDS: Insulin LISPRO 300 UNITS/3 ML VIAL SQ SCH (18:24)
[2017-09-20] MEDS: *HR* HYDROcodone/Acet 5/325 mg TABLET PO PRN (20:09)
[2017-09-20] MEDS: Gabapentin 100 MG CAPSULE PO SCH (20:57)
[2017-09-20] MEDS ORDERED: Insulin LISPRO 300 UNITS/3 ML VIAL SQ SCH (21:00)
[2017-09-21 06:24] LABS: Hemoglobin A1C 4.5 %
[2017-09-21 06:26] LABS: Basophils % 0.8 %; Eosinophils # 0.2 K/mcL (0.0-0.6); Eosinophils % 3.8 %; Hemoglobin 8.5 g/dL (11.5-15.4); Immature Granulocytes % 0.6 % (0-4); Lymphocytes # 0.9 K/mcL (0.6-4.6); Lymphocytes % 18.9 %; Mean Corpuscular HGB Conc 31.5 g/dL (31.6-35.5); Mean Corpuscular Hemoglobin 30.5 pg (28.0-33.3); Mean Corpuscular Volume 96.8 fL (83.0-100.0); Mean Platelet Volume 9.4 fL (9.4-12.4); Monocytes # 0.5 K/mcL (0.0-1.3); Monocytes % 9.9 %; Neutrophils # 3.2 K/mcL (1.6-8.9); Platelet Count 287 K/mcL (140-400); Red Blood Count 2.79 M/mcL (3.82-4.97)
[2017-09-21 07:04] LABS: Calcium 8.9 mg/dL (8.6-10.3); Magnesium 2.1 mg/dL (1.6-2.6); Phosphorous 4.2 mg/dL (2.7-4.5); Potassium 4.4 mEq/L (3.5-5.1)
[2017-09-21] MEDS: Insulin LISPRO 300 UNITS/3 ML VIAL SQ SCH ×2 (07:48→14:08)
[2017-09-21] MEDS ORDERED: 0.9 % Sodium Chloride 250 ML IVC PRN (08:19)
[2017-09-21] MEDS: Gabapentin 100 MG CAPSULE PO SCH ×2 (08:39→14:23)
[2017-09-21] MEDS ORDERED: Multivit/Ca/Min/Fe/FA 1 TAB TABLET PO SCH (09:00)
[2017-09-21] MEDS ORDERED: Aspirin Enteric Coated 81 MG Tablet PO SCH (09:00)
[2017-09-21] MEDS: *HR* HYDROcodone/Acet 5/325 mg TABLET PO PRN (10:56)
--- NOTE | 2017-09-21 13:42 | General Surgery Consult Note ---
<Carmen Salinas - Last Filed: 09/21/17 14:59> Date of Encounter: 09/21/17 Time of Encounter: 12:00 Assessment and Plan (1) Anemia Status: Chronic Pt with anemia of chronic disease sent here by her promotion specialist for transfusion. Noted her GFR of 11 and ESRD. Noted last conoloscopy in [facility] was 2013 and with normal mucosa and polyps, diviticulosis and no evidence of bleeding diverticulitis. She denies s/s of overt upper or lower GI bleeds. Surgery was consulted for hemoccult positive. Her hgb is nonspecific in this setting, Consideration given to risk/benefits of endoscopy at this time and given the patent's current lack of complaints, endoscopy is not recommended at this time. Surgery recommends supportive care at thsi time. IF the patient develops s/s of GIB, please reconsult. Thank you for allowing us to participate in Ms. Eng's care. Qualifiers: Anemia type: unspecified type Qualified Code(s): D64.9 - Anemia, unspecified History of Present Illness Consult date: 09/21/17 (Dr. Rob Thompson) Reason for consult: other (low hgb) Requesting physician: Shelbi Flores History of present illness: Consulted Surgeon: Dr. Rob Thompson Reason for consult anemai, + humoccult Subjective information is obtained via patient interview (while in dialysis) and chart review. Ms. Eng is a 71 year old female with a history of ESRD on dialysis, anemia of chronic disease, type II diabetes (insulin dependent), depression and anxiety. She presented on 09/20/2017 at the request of her promotion specialist (Dr. Mack at her) for hemoglobin of 6.9. She was transfused one unit packed red blood cells. Hemoglobin has recovered to 8.5 notably her baseline is approximately 8 to 10.9. Upon record review palliative care was consult at approximately 1 1/2 years ago and patient refused code status at that time. She is notably on end-stage renal disease with GFR of 11. She denies fever, chills, headache, dizziness, syncope, near syncope, chest pain, shortness of breath, vomitus of bright red blood or coffee ground emesis. She denies black, bloody, or tarry stool. She complains only of right lower extremity discomfort for which she was recently medicated. She denies willingness for further evaluation. Past Med Surg Social Fam HX - Past Medical History Source: patient, obtained from family Medical history: coronary artery disease, diabetes, dialysis, hypertension, renal disease, other Psychiatric history: anxiety, depression - Past Surgical History Surgical History: carotid endarterectomy, hysterectomy, orthopedic, other, thyroidectomy, other - Social History Smoking Status: Never smoker Smokeless Tobacco Status: No Alcohol use: none Drug use: none - Family History Mother Adopted: No Family Member Ethnicity: Non- Living Status: Hx Family Cardiac Disorders: No Hx Family Respiratory Disorders: Yes Hx Family Cancer: Yes Hx Family GI Disorders: No Hx Family Endocrine Disorder: No Hx Family Neuromuscular Disorders: No Hx Family Neurologic Disorders: No Hx Family HEENT Disorders: No Hx Family Autoimmune Disorders: No Father Adopted: No Family Member Ethnicity: Non- Living Status: Hx Family Cardiac Disorders: Yes Hx Family Respiratory Disorders: Yes Hx Family Cancer: No Hx Family GI Disorders: No Hx Family Endocrine Disorder: Yes Hx Family Neuromuscular Disorders: No Hx Family Neurologic Disorders: Yes Hx Family HEENT Disorders: No Hx Family Autoimmune Disorders: No Medications and Allergies Lidocaine/Prilocaine [Emla] 1 appl TP ONCE PRN 10/09/16 [History] Clopidogrel [Plavix] 75 mg PO DAILY tablet 10/16/16 [Rx] DiphenhydraMINE [Benadryl] 25 mg PO HS PRN #10 02/05/17 [Rx] Citalopram [CeleXA] 20 mg PO DAILY 03/30/17 [History] Metoprolol [Lopressor] 25 mg PO BID 03/30/17 [History] Aspirin Enteric Coated [Aspirin EC] 81 mg PO DAILY #30 tablet. 06/11/17 [Rx] Multivitamin [Multivitamins] 1 cap PO DAILY 09/03/17 [History] Sevelamer [Renvela] 2,400 mg PO TIDWM 09/03/17 [History] Acetaminophen [Tylenol] 650 mg PO Q6HR PRN #30 tablet 09/10/17 [Rx] Heparin 5,000 unit SQ Q12H #14 vial 09/10/17 [Rx] Docusate [Colace] 100 mg PO BID PRN 09/20/17 [History] Ondansetron HCl [Zofran] 4 mg PO TID PRN 09/20/17 [History] Gabapentin [Neurontin] 100 mg PO TID #15 capsule 09/21/17 [Rx] HYDROcodone/Acet 5/325 mg [[place] 5-325 mg] 1 tab PO Q6H PRN 5 Days #20 tab 09/21 [Rx] 3 Allergy/AdvReac Type Severity Reaction Status Date / Time Penicillins Allergy Hives Verified 09/03/17 10:29 Review of Systems All systems PM: reviewed and no additional remarkable complaints except as stated All systems PM: A 10-system review of systems was performed and is negative for pertinent findings except as documented above in the HPI. General Surgery Exam Initial Vital Signs Temp Pulse Resp BP Pulse Ox 97.8 F 75 18 132/54 100 09/20/17 13:56 09/20/17 13:56 09/20/17 13:56 09/20/17 13:56 09/20/17 13:56 - General physical appearance other (sleepy) - Eyes normal ocular movement - ENT atraumatic, normocephalic - Neck trachea midline, no venous distension - Respiratory other (decreased) - Cardiovascular Cardiovascular exam: Present: RRR - Neurologic Present: other (drowsy, nodds head to answer questions. Follows commands) - Musculoskeletal Present: other (reclined in bed. Eyes closed.) - Psychiatric Psychiatric general surgery: Present: other (drowsy) Exam Initial Vital Signs Temp Pulse Resp BP Pulse Ox 97.8 F 75 18 132/54 100 09/20/17 13:56 09/20/17 13:56 09/20/17 13:56 09/20/17 13:56 09/20/17 13:56 Results - Labs 09/21/17 05:25 09/21/17 05:25 Abnormal lab results RBC 2.79 M/mcL (3.82-4.97) L 09/21/17 05:25 Hgb 8.5 g/dL (11.5-15.4) L 09/21/17 05:25 Hct 27.0 % (35.3-44.9) L 09/21/17 05:25 MCHC 31.5 g/dL (31.6-35.5) L 09/21/17 05:25 RDW 17.0 % (11.5-14.5) H 09/21/17 05:25 APTT 24.8 Seconds (26.0-36.0) L 09/20/17 14:20 BUN 26 mg/dL (8-23) H 09/21/17 05:25 Creatinine 4.63 mg/dL (0.60-1.20) H 09/21/17 05:25 Est GFR ( Amer) 11 (> 60) L 09/21/17 05:25 Est GFR (Non-Af Amer) 9 (> 60) L 09/21/17 05:25 POC Glucose 116 (58-89) H 09/20/17 19:50 Stool Occult Blood Positive (Negative) A 09/20/17 15:37 Diabetes panel 09/21/17 09/21/17 Range/Units 05:25 05:25 Sodium 137 (136-145) mEq/L Potassium 4.4 (3.5-5.1) mEq/L Chloride 102 (98-107) mEq/L Carbon Dioxide 28 (23-29) mEq/L BUN 26 H (8-23) mg/dL Creatinine 4.63 H (0.60-1.20) mg/dL Glucose 78 (70-105) mg/dL Hemoglobin A1c 4.5 ( - 5.6) % Calcium 8.9 (8.6-10.3) mg/dL Calcium panel 09/21/17 Range/Units 05:25 Calcium 8.9 (8.6-10.3) mg/dL Phosphorus 4.2 (2.7-4.5) mg/dL Pituitary panel 09/21/17 Range/Units 05:25 Sodium 137 (136-145) mEq/L Potassium 4.4 (3.5-5.1) mEq/L Chloride 102 (98-107) mEq/L Carbon Dioxide 28 (23-29) mEq/L BUN 26 H (8-23) mg/dL Creatinine 4.63 H (0.60-1.20) mg/dL Glucose 78 (70-105) mg/dL Calcium 8.9 (8.6-10.3) mg/dL Adrenal panel 09/21/17 Range/Units 05:25 Sodium 137 (136-145) mEq/L Potassium 4.4 (3.5-5.1) mEq/L Chloride 102 (98-107) mEq/L Carbon Dioxide 28 (23-29) mEq/L BUN 26 H (8-23) mg/dL Creatinine 4.63 H (0.60-1.20) mg/dL Glucose 78 (70-105) mg/dL Calcium 8.9 (8.6-10.3) mg/dL All other labs normal. Consult Discharge Plan - Plan Instructions: Anemia (GEN) Additional Instructions: Please follow up with your primary care physician within one week after your discharge from the hospital. Please continue your hemodialysis sessions as per your primary promotion specialist Resume all your home medications as prescribed by your primary care physician. Referrals: Rudi Avila MD [Primary Care Provider] - Prescriptions: Gabapentin [Neurontin] 100 mg PO TID #15 capsule HYDROcodone/Acet 5/325 mg [[place] 5-325 mg] 1 tab PO Q6H PRN 5 Days #20 tab PRN Reason: Severe pain <Donna,Rob T - Last Filed: 09/22/17 12:44> Date of Encounter: 09/21/17 Review of Systems All systems PM: A 10-system review of systems was performed and is negative for pertinent findings except as documented above in the HPI. General Surgery Exam Initial Vital Signs Temp Pulse Resp BP Pulse Ox 97.8 F 75 18 132/54 100 09/20/17 13:56 09/20/17 13:56 09/20/17 13:56 09/20/17 13:56 09/20/17 13:56 Exam Initial Vital Signs Temp Pulse Resp BP Pulse Ox 97.8 F 75 18 132/54 100 09/20/17 13:56 09/20/17 13:56 09/20/17 13:56 09/20/17 13:56 09/20/17 13:56 Results - Labs 09/21/17 05:25 09/21/17 05:25 Abnormal lab results RBC 2.79 M/mcL (3.82-4.97) L 09/21/17 05:25 Hgb 8.5 g/dL (11.5-15.4) L 09/21/17 05:25 Hct 27.0 % (35.3-44.9) L 09/21/17 05:25 MCHC 31.5 g/dL (31.6-35.5) L 09/21/17 05:25 RDW 17.0 % (11.5-14.5) H 09/21/17 05:25 APTT 24.8 Seconds (26.0-36.0) L 09/20/17 14:20 BUN 26 mg/dL (8-23) H 09/21/17 05:25 Creatinine 4.63 mg/dL (0.60-1.20) H 09/21/17 05:25 Est GFR ( Amer) 11 (> 60) L 09/21/17 05:25 Est GFR (Non-Af Amer) 9 (> 60) L 09/21/17 05:25 POC Glucose 92 (58-89) H 09/21/17 15:49 Stool Occult Blood Positive (Negative) A 09/20/17 15:37 All other labs normal. - Attending Attestation I have personally performed a face to face evaluation on this patient. I have reviewed and agree with the care plan. History and Exam by me shows: I personally evaluated the patient. The family has decided to proceed with palliative care. No endoscopy at this time. Rob Thompson MD FACS
--- NOTE | 2017-09-21 14:08 | Nephrology Consult Note ---
Date of Encounter: 09/21/17 Time of Encounter: 14:05 Assessment and Plan (1) End stage renal disease on dialysis Current Visit: Yes Status: Chronic HD MWF. Patient seen on dialysis today. Renal dose medications. Renal diet. Additional dialysis as needed. (2) Anemia in chronic kidney disease, on chronic dialysis Current Visit: Yes Status: Acute Chronic anemia with acute decrease. Responded to transfusion. Guiac positive. Patient's seems to be insisting that they don't want to stay for inpatient work-up. Communicated with Dr. Flores. (3) Diabetes mellitus Current Visit: No Status: Chronic Per primary team. continue home medications. 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 Eng is known to the [facility] service. She is in for anemia. She was seen on dialysis and has no new complaint. Her review of systems is overall stable. Past Med Surg Social Fam HX - Past Medical History Medical history: coronary artery disease, diabetes, dialysis, hypertension, renal disease, other Psychiatric history: anxiety, depression - Past Surgical History Surgical History: carotid endarterectomy, hysterectomy, orthopedic, other, thyroidectomy, other - Social History Smoking Status: Never smoker Smokeless Tobacco Status: No Alcohol use: none Drug use: none - Family History Mother Adopted: No Family Member Ethnicity: Non- Living Status: Hx Family Cardiac Disorders: No Hx Family Respiratory Disorders: Yes Hx Family Cancer: Yes Hx Family GI Disorders: No Hx Family Endocrine Disorder: No Hx Family Neuromuscular Disorders: No Hx Family Neurologic Disorders: No Hx Family HEENT Disorders: No Hx Family Autoimmune Disorders: No Father Adopted: No Family Member Ethnicity: Non- Living Status: Hx Family Cardiac Disorders: Yes Hx Family Respiratory Disorders: Yes Hx Family Cancer: No Hx Family GI Disorders: No Hx Family Endocrine Disorder: Yes Hx Family Neuromuscular Disorders: No Hx Family Neurologic Disorders: Yes Hx Family HEENT Disorders: No Hx Family Autoimmune Disorders: No Medications and Allergies Lidocaine/Prilocaine [Emla] 1 appl TP ONCE PRN 10/09/16 [History] Clopidogrel [Plavix] 75 mg PO DAILY tablet 10/16/16 [Rx] DiphenhydraMINE [Benadryl] 25 mg PO HS PRN #10 02/05/17 [Rx] Gabapentin [Neurontin] 100 mg PO TID #30 02/05/17 [Rx] Citalopram [CeleXA] 20 mg PO DAILY 03/30/17 [History] Metoprolol [Lopressor] 25 mg PO BID 03/30/17 [History] Aspirin Enteric Coated [Aspirin EC] 81 mg PO DAILY #30 tablet. 06/11/17 [Rx] Multivitamin [Multivitamins] 1 cap PO DAILY 09/03/17 [History] Sevelamer [Renvela] 2,400 mg PO TIDWM 09/03/17 [History] Acetaminophen [Tylenol] 650 mg PO Q6HR PRN #30 tablet 09/10/17 [Rx] HYDROcodone/Acet 5/325 mg [[place] 5-325 mg] 1 tab PO Q6H PRN #20 tab 09/10/17 [Rx ] Heparin 5,000 unit SQ Q12H #14 vial 09/10/17 [Rx] Docusate [Colace] 100 mg PO BID PRN 09/20/17 [History] Ondansetron HCl [Zofran] 4 mg PO TID PRN 09/20/17 [History] 3 Allergy/AdvReac Type Severity Reaction Status Date / Time Penicillins Allergy Hives Verified 09/03/17 10:29 Review of Systems All Systems: reviewed and no additional remarkable complaints except as stated ( as documented in the HpI.) Exam - Vital Signs Vital signs: Initial Vital Signs Temp Pulse Resp BP Pulse Ox 97.8 F 75 18 132/54 100 09/20/17 13:56 09/20/17 13:56 09/20/17 13:56 09/20/17 13:56 09/20/17 13:56 Vital Signs - Last 8 Hours Temp Pulse Resp BP Pulse Ox 09/21/17 13:10 97.8 F 20 100/46 09/21/17 12:55 95/43 09/21/17 12:40 117/55 09/21/17 12:25 92/46 09/21/17 12:10 91/50 02/02/18 11:55 108/59 09/21/17 11:40 92/50 09/21/17 11:25 112/57 09/21/17 11:10 106/51 09/21/17 10:55 104/56 09/21/17 10:40 129/60 09/21/17 10:25 124/57 09/21/17 10:10 98.0 F 20 160/72 09/21/17 06:18 98.6 F 75 16 149/65 92 Intake and Output 09/20/17 09/21/17 09/21/17 23:59 07:59 15:59 Intake Total 330 / 330 600 / 600 Output Total 0 / 0 Balance 330 / 330 600 / 600 Intake: Oral 0 / 0 Blood Product 330 / 330 Rbcs Leuko Poor As-1 Unit 330 / 330 [id number] Intake, Rinseback and Flushes 600 / 600 Output: Urine 0 / 0 Other: Weight 73.482 kg 73.5 kg Blood Glucose* 116 78 83 Hemodialysis Net Fluid Removed 3000 (mL) Patient Weight 09/21/17 23:59 Weight 73.5 kg - General Appearance General appearance: well-developed, well-nourished EENT: ATNC Neck: supple Cardiology: regular rate Integumentary: warm and dry Additional Comments: Alert Psychiatric: mood/affect appropriate Results - Lab Results 09/21/17 05:25 09/21/17 05:25 Most recent lab results Calcium 8.9 mg/dL (8.6-10.3) 09/21/17 05:25 Phosphorus 4.2 mg/dL (2.7-4.5) 09/21/17 05:25 Magnesium 2.1 mg/dL (1.6-2.6) 09/21/17 05:25 Consult Discharge Plan - Plan Referrals: Rudi Avila MD [Primary Care Provider] -
[2017-09-21 15:54] VITALS: BP 154/66
--- NOTE | 2017-09-21 16:10 | Discharge Summary ---
Date of Encounter: 09/21/17 Time of Encounter: 15:15 - Discharge Diagnosis (1) Anemia in chronic kidney disease, on chronic dialysis Priority: Primary Status: Acute (2) End stage renal disease on dialysis Priority: Secondary Status: Chronic (3) DVT prophylaxis Priority: Secondary Status: Acute (4) Generalized weakness Priority: Secondary Status: Acute (5) Essential hypertension Priority: Secondary Status: Chronic (6) T2DM (type 2 diabetes mellitus) Priority: Secondary Status: Chronic Qualifiers: Diabetes mellitus complication status: with kidney complications Diabetes mellitus complication detail: with chronic kidney disease Diabetes mellitus usp insulin use: unspecified intermediate manager insulin use status Chronic kidney disease stage: on chronic dialysis Qualified Code(s): E11.22 - Type 2 diabetes mellitus with diabetic chronic kidney disease; N18.6 - End stage renal disease - Discharge Medications Prescriptions: Gabapentin [Neurontin] 100 mg PO TID #15 capsule HYDROcodone/Acet 5/325 mg [[place] 5-325 mg] 1 tab PO Q6H PRN 5 Days #20 tab PRN Reason: Severe pain Home Medications: Lidocaine/Prilocaine [Emla] 1 appl TP ONCE PRN 10/09/16 [History] Clopidogrel [Plavix] 75 mg PO DAILY tablet 10/16/16 [Rx] DiphenhydraMINE [Benadryl] 25 mg PO HS PRN #10 02/05/17 [Rx] Citalopram [CeleXA] 20 mg PO DAILY 03/30/17 [History] Metoprolol [Lopressor] 25 mg PO BID 03/30/17 [History] Aspirin Enteric Coated [Aspirin EC] 81 mg PO DAILY #30 tablet. 06/11/17 [Rx] Multivitamin [Multivitamins] 1 cap PO DAILY 09/03/17 [History] Sevelamer [Renvela] 2,400 mg PO TIDWM 09/03/17 [History] Acetaminophen [Tylenol] 650 mg PO Q6HR PRN #30 tablet 09/10/17 [Rx] Heparin 5,000 unit SQ Q12H #14 vial 09/10/17 [Rx] Docusate [Colace] 100 mg PO BID PRN 09/20/17 [History] Ondansetron HCl [Zofran] 4 mg PO TID PRN 09/20/17 [History] Gabapentin [Neurontin] 100 mg PO TID #15 capsule 09/21/17 [Rx] HYDROcodone/Acet 5/325 mg [[place] 5-325 mg] 1 tab PO Q6H PRN 5 Days #20 tab 09/21 [Rx] Allergies/Adverse Reactions: 3 Allergy/AdvReac Type Severity Reaction Status Date / Time Penicillins Allergy Hives Verified 09/03/17 10:29 Date of admission: 09/20/17 16:38 Primary care physician: Rudi Avila MD Consults: 09/21/17 08:26 Consult to Country Printer [CONS] Routine Reason for SW Consult: FROM [facility] 09/21/17 08:30 Consult to Dialysis [CONS] ONCE 09/21/17 08:44 Consult to Surgery [CONS] Routine Consulting Provider: Porfirio Chao Surgical Reason for Consult: GI Bleed Call Completed: Yes Discharging clinician: Shelbi Flores Anticipated date of discharge: 09/21/17 - Patient Status Disposition: Transfer SNF Condition: Good Functional capacity at discharge: uses cane/walker Overall status at discharge: patient is back to baseline - Discharge Instructions Instructions: Anemia (GEN) Follow Up With: Rudi Avila MD [Primary Care Provider] - Additional Instructions: Please follow up with your primary care physician within one week after your discharge from the hospital. Please continue your hemodialysis sessions as per your primary machine assistant Resume all your home medications as prescribed by your primary care physician. - Diet and Activity Activity: as per physical therapy Diet: diabetic diet, low fat, low cholesterol, low salt diet Hospital course: Ms. Eng is a 71 year old female with PMH of ESRD on HD, DM, HTN, Anemia in ESRD who was admitted for symptomatic anemia. She received one unit PRBC transfusion and was found to have positive stool occult. Surgery was consulted. No further intervention was recommended at this time. Pt states even if she needed EGD or colonoscopy, she would not have proceeded with the procedure. At this time her H&H is within acceptable range and she is hemodynamically stable for discharge back to [place]. Pt and family (present at bedside) in agreement with discharge plan. Pt received HD today (09/21/17) - Time Spent with Patient Total time spent providing and/or coordinating discharge services: Greater than 30 minutes - Constitutional Vitals: Temp Pulse Resp BP Pulse Ox 98.3 F 88 17 154/66 94 09/21/17 15:44 09/21/17 15:44 09/21/17 15:44 09/21/17 15:44 09/21/17 15:44 General appearance: Present: A&O X 3 (frail appearing female, weak), no acute distress, answers questions appropriately - Head Head exam: Present: atraumatic, normocephalic - Eye Eye exam: Present: conjuntiva pink, sclera anicteric - Respiratory Respiratory exam: Present: CTAB. Absent: respiratory distress, wheezes - Cardiovascular Cardiovascular exam: Present: RRR, +S1, +S2. Absent: diastolic murmur, gallop, rubs, systolic murmur - GI/Abdominal GI/Abdominal exam: Present: normal bowel sounds, soft, no peritoneal signs. Absent: distended, tenderness - Extremities Exam Extremities exam: Present: warm, radial pulses palpable and symmetrical. Absent : calf tenderness Additional comments: s/p left BKA - Neurological Exam Neurological exam: Present: alert, oriented X3 - Psychiatric Psychiatric exam: Present: normal affect, normal mood
--- NOTE | 2017-09-21 16:17 | Physician Discharge Referral ---
ExtendedCare Referral Info Transfer To: [facility] Provider in Charge after Transfer: PCP - Diagnosis (1) Anemia in chronic kidney disease, on chronic dialysis Priority: Primary Status: Acute (2) End stage renal disease on dialysis Priority: Secondary Status: Chronic (3) DVT prophylaxis Priority: Secondary Status: Acute (4) Generalized weakness Priority: Secondary Status: Acute (5) Essential hypertension Priority: Secondary Status: Chronic (6) T2DM (type 2 diabetes mellitus) Priority: Secondary Status: Chronic - Transfer Medications Prescriptions: Gabapentin [Neurontin] 100 mg PO TID #15 capsule HYDROcodone/Acet 5/325 mg [[place] 5-325 mg] 1 tab PO Q6H PRN 5 Days #20 tab PRN Reason: Severe pain Home Medications: Lidocaine/Prilocaine [Emla] 1 appl TP ONCE PRN 10/09/16 [History] Clopidogrel [Plavix] 75 mg PO DAILY tablet 10/16/16 [Rx] DiphenhydraMINE [Benadryl] 25 mg PO HS PRN #10 02/05/17 [Rx] Citalopram [CeleXA] 20 mg PO DAILY 03/30/17 [History] Metoprolol [Lopressor] 25 mg PO BID 03/30/17 [History] Aspirin Enteric Coated [Aspirin EC] 81 mg PO DAILY #30 tablet. 06/11/17 [Rx] Multivitamin [Multivitamins] 1 cap PO DAILY 09/03/17 [History] Sevelamer [Renvela] 2,400 mg PO TIDWM 09/03/17 [History] Acetaminophen [Tylenol] 650 mg PO Q6HR PRN #30 tablet 09/10/17 [Rx] Heparin 5,000 unit SQ Q12H #14 vial 09/10/17 [Rx] Docusate [Colace] 100 mg PO BID PRN 09/20/17 [History] Ondansetron HCl [Zofran] 4 mg PO TID PRN 09/20/17 [History] Gabapentin [Neurontin] 100 mg PO TID #15 capsule 09/21/17 [Rx] HYDROcodone/Acet 5/325 mg [[place] 5-325 mg] 1 tab PO Q6H PRN 5 Days #20 tab 09/21 [Rx] Allergies/Adverse Reactions: 3 Allergy/AdvReac Type Severity Reaction Status Date / Time Penicillins Allergy Hives Verified 09/03/17 10:29 - Respiratory Orders Smoking Cessation: Smoking cessation has been advised. For more information, call the [employer] Tobacco Quit Line at 4-591-ACGX-NOW. - Lab Orders Lab Orders: CBC (check H&H on sunday09/24/17) - Rehabiliation Orders Other: Please follow up with your primary care physician within one week after your discharge from the hospital. Please continue your hemodialysis sessions as per your primary bakery team leader Resume all your home medications as prescribed by your primary care physician. CERTIFICATION: I certify that the transfer of the above named patient to an Extended Care Facility is necessary for the continuing treatment of the diagnosis listed. The above information is true and accurate reflection of patient's current condition. Confidential - Redisclosure prohibited without a patient's written consent.
--- NOTE | 2017-09-21 17:45 | Electrocardiograph Report ---
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
== END 2017-09-21 16:58 ==
LOC: 2ANU 13:55 → EMEROO 13:55 → 2ANU 17:14
PROVIDERS: ADMIT Internal Medicine; ATTEND Internal Medicine

== ENCOUNTER 2017-11-19 14:38 | Inpatient (IN) ==
--- NOTE | 2017-11-19 15:17 | Emergency Department Note ---
Disposition Clinical Impression: Weakness Disposition: Admitted As Inpatient Condition: Fair Time of Disposition: 18:42 General Adult HPI - General Chief complaint: ED Nausea/Vomiting/Diarrhea Stated complaint: high BP/nausea/headache Time Seen by Provider: 11/19/17 14:45 Source: EMS Limitations: altered mental status, physical limitation - History of Present Illness HPI Narrative: Albertina is a 71f presenting via squad with 5 days of N/V/D and weakness. She missed her dialysis today. 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 She states she has had intermittent vomiting and diarrhea, has been overall very weak. Last saw Dr. Du about a week ago, her redness of the first toe has gotten worse per her , she has been afebrile, non-diaphoretic. She denies chest pain, neck pain, abdominal pain. Pain Scale: 0 - Related Data Home Medications Medication Instructions Recorded Confirmed Lidocaine/Prilocaine [Emla] 1 appl TP ONCE PRN 10/09/16 09/20/17 Citalopram [CeleXA] 20 mg PO DAILY 03/30/17 09/20/17 Metoprolol [Lopressor] 25 mg PO BID 03/30/17 09/20/17 Multivitamin [Multivitamins] 1 cap PO DAILY 09/03/17 09/20/17 Ondansetron HCl [Zofran] 4 mg PO TID PRN 09/20/17 09/20/17 Previous Rx's Medication Instructions Recorded Clopidogrel [Plavix] 75 mg PO DAILY tablet 10/16/16 DiphenhydraMINE [Benadryl] 25 mg PO HS PRN #10 02/05/17 Aspirin Enteric Coated [Aspirin EC] 81 mg PO DAILY #30 tablet. 06/11/17 Acetaminophen [Tylenol] 650 mg PO Q6HR PRN #30 tablet 09/10/17 Gabapentin [Neurontin] 100 mg PO TID #15 capsule 09/21/17 Allergies Allergy/AdvReac Type Severity Reaction Status Date / Time Penicillins Allergy Hives Verified 11/19/17 18:23 All systems ED: reviewed and negative except as stated. Constitutional: Denies: fever Eyes: Denies: vision change ENT ED: Denies: ear pain Cardiovascular: Denies: chest pain Respiratory: Denies: cough Gastrointestinal: Reports: nausea, vomiting, diarrhea. 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 Absent: respiratory distress - Cardiovascular Cardiovascular exam: Present: regular rate, normal rhythm. Absent: JVD - Abdominal Exam Abdominal exam: Present: soft - Extremities Exam Extremities exam: Present: other (left BKA; R foot erythema, swelling) - Neurological Exam Neurological exam: Present: alert, oriented X3 - Psychiatric Psychiatric exam: Present: flat affect - Skin Skin exam: Present: warm. Absent: erythema Course Course Narrative: On exam patient appears lethargic, slow to respond compared to baseline. She is afebrile, vss except for elevated blood pressure which she has a history of. There is erythema and swelling of the 1st digit of the R foot. states margins seem to have grown since last evaluation She has history of BKA of L. Examination of heart and lung sounds unremarkable, no abdominal tenderness. Labs show no wt ct, chronically elevated creatinine, imaging shows possible osteomyelitis of 1st phalanxy with gaseous involvement. We are starting her on Levaquin and vancomycin. Patient's presentation and imaging discussed with Podiatry and admitting hospitalist who agree to evaluate patient for possible osteomyelitis. Nephrology contacted regarding her missed dialysis appointment today (normal electrolytes, creatinine at baseline). Vital Signs Temperature 98.0 F 11/19/17 14:46 Pulse Rate 71 11/19/17 14:46 Respiratory Rate 14 11/19/17 14:46 Blood Pressure 195/78 11/19/17 14:46 O2 Sat by Pulse Oximetry 97 11/19/17 14:46 Temperature 98.0 F 11/19/17 14:46 Pulse Rate 80 11/19/17 17:53 Respiratory Rate 16 11/19/17 17:53 Blood Pressure 190/72 11/19/17 17:53 O2 Sat by Pulse Oximetry 93 11/19/17 17:53 Oxygen Delivery Oxygen Delivery Room Air Medical Decision Making - Medical Records Medical records reviewed: Yes I reviewed the patient's medical records. - Lab Data Lab results reviewed: Yes I reviewed the patient's lab results. Result diagrams: 11/19/17 15:30 11/19/17 15:30 Lab Results 11/19/17 11/19/17 11/19/17 Range/Units 15:30 15:30 15:30 WBC 6.7 (4.3-11.1) K/mcL RBC 4.15 (3.82-4.97) M/mcL Hgb 12.7 (11.5-15.4) g/dL Hct 39.1 (35.3-44.9) % MCV 94.2 (83.0-100.0) fL MCH 30.6 (28.0-33.3) pg MCHC 32.5 (31.6-35.5) g/dL RDW 14.8 H (11.5-14.5) % Plt Count 319 (140-400) K/mcL MPV 9.3 L (9.4-12.4) fL Immature Gran % 0.4 (0-4) % Seg Neutrophils % 77.9 % Lymphocytes % 13.2 % Monocytes % 6.1 % Eosinophils % 1.8 % Basophils % 0.6 % Neutrophils # 5.2 (1.6-8.9) K/mcL Lymphocytes # 0.9 (0.6-4.6) K/mcL Monocytes # 0.4 (0.0-1.3) K/mcL Eosinophils # 0.1 (0.0-0.6) K/mcL Basophils # 0.0 (0.0-0.2) K/mcL Sodium 137 (136-145) mEq/L Potassium 4.2 (3.5-5.1) mEq/L Chloride 95 L (98-107) mEq/L Carbon Dioxide 27 (23-29) mEq/L BUN 36 H (8-23) mg/dL Creatinine 5.54 H (0.60-1.20) mg/dL Est GFR ( Amer) 9 L (> 60) Est GFR (Non-Af Amer) 8 L (> 60) BUN/Creatinine Ratio 6 (6-26) Glucose 91 (70-105) mg/dL Calculated Osmolality 292 (280-300) Calcium 9.8 (8.6-10.3) mg/dL Troponin I 0.03 (< 0.04) ng/mL - Radiology Data Radiology results reviewed: Yes I reviewed the patient's radiology results. Head CT 11/19/17 14:45 IMPRESSION: Stable chronic ischemic changes and remote insults, as above. No CT evidence for acute intracranial process. D/ / Chad Chairez / Chad Chairez Interpreting Provider: Chad Chairez Chest X-Ray 11/19/17 15:20 IMPRESSION: 1. No active pulmonary disease. 2. Stable cardiomegaly without overt failure. D/ / Usama Coronel MD / Usama Coronel MD Interpreting Provider: Usama Coronel MD Foot CT 11/19/17 16:21 IMPRESSION: 1. Plantar subluxation of the distal phalanx of the 1st toe in relation to the proximal phalanx with subtle irregularity and lucency involving the dorsal cortex of the distal proximal 1st phalanx which is seen to closely approximate the skin surface. Also question cortical regularity of the base of the distal 1st phalanx. While findings may be related to severe osteopenia, osteomyelitis is of concern given the soft tissue edema and patient history. 2 tiny locules of gas are seen along the dorsal aspect of the interphalangeal joint of the great toe. Infectious process not excluded. 2. Severe osteopenia. 3. Severe atherosclerotic disease. D/ / Richard Edward MD / Richard Edward MD Interpreting Provider: Richard Edward MD - EKG Data EKG #1 EKG attestation: Yes I reviewed and interpreted this EKG. EKG results narrative: ECG obtained 1533. NSR with 73BPM. Normal axis. Normal t waves with normal variant aVR t wave inversion. Normal R wave progression. No ST elevation or depression.
[2017-11-19] MEDS ORDERED: Ondansetron ODT 4 MG TAB.RAPDIS SL ONE (15:33)
[2017-11-19 15:37] LABS: Basophils % 0.6 %; Eosinophils # 0.1 K/mcL (0.0-0.6); Eosinophils % 1.8 %; Hematocrit 39.1 % (35.3-44.9); Hemoglobin 12.7 g/dL (11.5-15.4); Immature Granulocytes % 0.4 % (0-4); Lymphocytes # 0.9 K/mcL (0.6-4.6); Lymphocytes % 13.2 %; Mean Corpuscular HGB Conc 32.5 g/dL (31.6-35.5); Mean Corpuscular Hemoglobin 30.6 pg (28.0-33.3); Mean Corpuscular Volume 94.2 fL (83.0-100.0); Mean Platelet Volume 9.3 fL (9.4-12.4); Monocytes # 0.4 K/mcL (0.0-1.3); Monocytes % 6.1 %; Neutrophils # 5.2 K/mcL (1.6-8.9); Platelet Count 319 K/mcL (140-400); Red Blood Count 4.15 M/mcL (3.82-4.97); Red Cell Distribution Width 14.8 % (11.5-14.5); Segmented Neutrophils % 77.9 %
[2017-11-19] MEDS ORDERED: *HR* HYDROcodone/Acet 5/325 mg TABLET PO ONE (15:44)
[2017-11-19] MEDS ORDERED: 0.9 % Sodium Chloride 1,000 ML IVC ONE (15:44)
[2017-11-19 16:02] LABS: Calcium 9.8 mg/dL (8.6-10.3); Potassium 4.2 mEq/L (3.5-5.1)
[2017-11-19] MEDS ORDERED: Levofloxacin 750 MG/150 ML 750 MG/150 ML BAG IVPB ONE (17:51)
--- NOTE | 2017-11-19 18:36 | Emergency Department Note ---
START Narrative - START START: I examined this patient and my medical decision-making was reviewed with the Resident Physician. I agree with the documented findings, disposition and treatment plan as described except to the extent set forth below. 71-year-old female presented to the emergency room for a headache 5-6 days. She also has not been feeling herself. She was sent in from the nursing facility. She did not get her dialysis today either. Her workup here reveals that CT of the brain was unremarkable. She does however have some infection in the right foot. She has a previous left BKA. Her right foot appears to have a cellulitic appearance and a CT shows that she has got some gas versus osteomyelitis in this region of the right foot. We have started her on some IV antibiotics. Patient will need to be set up for dialysis tomorrow. We have contacted the golf course architect. We will start her on IV vancomycin and IV Levaquin as she has a penicillin allergy. Critical care time of 30 minutes spent in medical management of multiple medical problems
--- NOTE | 2017-11-19 19:29 | Internal Med History&Physical ---
Date of Encounter: 11/19/17 Time of Encounter: 18:00 Assessment and Plan (1) Toe ulcer Current visit: No Status: Acute There were concerns of right toe infection so a CT of right foot was ordered which showed subtle irregularity and lucency involving the dorsal cortex of the distal proximal 1st phalanx with questionable cortical regularity of the base of the distal 1st phalanx. Findings concerning for osteomyelitis given the soft tissue edema. Also noted were 2 tiny locules of gas are seen along the dorsal aspect of the interphalangeal joint of the great toe. Will continue IV Levaquin and vancomycin started in the ER Podiatry consult from the ER and appreciate recommendations Qualifiers: Laterality: right Non-pressure ulcer stage: limited to breakdown of skin Qualified Code(s): L97.511 - Non-pressure chronic ulcer of other part of right foot limited to breakdown of skin (2) Essential hypertension Current visit: No Status: Chronic Patient presented to the ER for headaches and uncontrolled blood pressures for the last 3-4 weeks primarily occurring after dialysis per patient/family In the ER, patient was found to have systolic blood pressures ranging from 192- 202 and diastolic pressures ranging from 79-99. 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 Current visit: No Status: Chronic Patient known to vascular service with multiple ulcerations and left leg amputation secondary to vascular Qualifiers: Lower extremity ulceration location: calf Qualified Code(s): I70.232 - Atherosclerosis of circle arteries of right leg with ulceration of calf; I70.242 - Atherosclerosis of circle arteries of left leg with ulceration of calf (5) Depression, major, single episode, mild Current visit: No Status: Acute Continue SSRI (6) DVT prophylaxis Current visit: No Status: Acute Subcutaneous heparin Internal Medicine - H&P: HPI Chief complaint: Headache Admitted From: Home Plans for Post Hospital Care: Home History of present illness: Patient is a 71-year-old female with past medical history significant for coronary arterial disease, peripheral vascular disease, end-stage renal disease and hypertension who presents to the ER on 11/19/17 due to headaches. She reports of recent onset of headaches but also reports of uncontrolled blood pressures for the last 3-4 weeks primarily after dialysis. She decided to come to the ER for further evaluation. In the ER, patient was found to have systolic blood pressures ranging from 192- 202 and diastolic pressures ranging from 79-99. There are also concerns of right toe infection so a CT of right foot was ordered which showed subtle irregularity and lucency involving the dorsal cortex of the distal proximal 1st phalanx with questionable cortical regularity of the base of the distal 1st phalanx. Findings concerning for osteomyelitis given the soft tissue edema. Also noted were 2 tiny locules of gas are seen along the dorsal aspect of the interphalangeal joint of the great toe. Patient will be admitted to the medical surgical floor for management of toe cellulitis with possibility of osteomyelitis. Past Med Surg Social Fam HX - Past Medical History Medical history: coronary artery disease, diabetes, dialysis, hypertension, renal disease, other Psychiatric history: anxiety, depression - Past Surgical History Surgical History: carotid endarterectomy, hysterectomy, orthopedic, other, thyroidectomy, other - Social History Smoking Status: Never smoker Smokeless Tobacco Status: No Alcohol use: none Drug use: none - Family History Mother Adopted: No Family Member Ethnicity: Non- Living Status: Hx Family Cardiac Disorders: No Hx Family Respiratory Disorders: Yes Hx Family Cancer: Yes Hx Family GI Disorders: No Hx Family Endocrine Disorder: No Hx Family Neuromuscular Disorders: No Hx Family Neurologic Disorders: No Hx Family HEENT Disorders: No Hx Family Autoimmune Disorders: No Father Adopted: No Family Member Ethnicity: Non- Living Status: Hx Family Cardiac Disorders: Yes Hx Family Respiratory Disorders: Yes Hx Family Cancer: No Hx Family GI Disorders: No Hx Family Endocrine Disorder: Yes Hx Family Neuromuscular Disorders: No Hx Family Neurologic Disorders: Yes Hx Family HEENT Disorders: No Hx Family Autoimmune Disorders: No Internal Medicine - H&P: Meds Lidocaine/Prilocaine [Emla] 1 appl TP ONCE PRN 10/09/16 [History] Clopidogrel [Plavix] 75 mg PO DAILY tablet 10/16/16 [Rx] DiphenhydraMINE [Benadryl] 25 mg PO HS PRN #10 02/05/17 [Rx] Citalopram [CeleXA] 20 mg PO DAILY 03/30/17 [History] Metoprolol [Lopressor] 25 mg PO BID 03/30/17 [History] Aspirin Enteric Coated [Aspirin EC] 81 mg PO DAILY #30 tablet. 06/11/17 [Rx] Multivitamin [Multivitamins] 1 cap PO DAILY 09/03/17 [History] Acetaminophen [Tylenol] 650 mg PO Q6HR PRN #30 tablet 09/10/17 [Rx] Ondansetron HCl [Zofran] 4 mg PO TID PRN 09/20/17 [History] Gabapentin [Neurontin] 100 mg PO TID #15 capsule 09/21/17 [Rx] 3 Allergy/AdvReac Type Severity Reaction Status Date / Time Penicillins Allergy Hives Verified 11/19/17 18:23 All Systems PM: A 10-system review of systems was performed and is negative for pertinent findings except as documented above in the HPI. - Constitutional Vitals: Temp Pulse Resp BP Pulse Ox 98.0 F 78 16 174/64 95 11/19/17 14:46 11/19/17 19:00 11/19/17 19:00 11/19/17 19:00 11/19/17 19:00 General appearance: Present: A&O X 3, no acute distress - Head Head exam: Present: normocephalic - Eye Eye exam: Present: normal appearance - ENT ENT exam: Present: mucous membranes moist - Respiratory Respiratory exam: Present: CTAB. Absent: accessory muscle use, rales, rhonchi, wheezes - Cardiovascular Cardiovascular exam: Present: RRR, +S1, +S2. Absent: diastolic murmur, gallop, rubs, systolic murmur - GI/Abdominal GI/Abdominal exam: Present: normal bowel sounds, soft, no peritoneal signs. Absent: distended, tenderness - Expanded Lower Extremities Exam Foot/Toe exam: Present: erythema (Erythematous first digit on the right foot) - Neurological Exam Neurological exam: Present: oriented X3 - Psychiatric Psychiatric exam: Present: normal mood - Skin Skin exam: Present: erythema (Right great toe) Internal Med - H&P Results - Labs CBC & Chem 7: 11/19/17 15:30 11/19/17 15:30
[2017-11-19] MEDS ORDERED: Naloxone 0.4 MG/ML INJ IVP PRN (19:46)
[2017-11-19] MEDS ORDERED: Ondansetron ODT 4 MG TAB.RAPDIS PO PRN (19:48)
[2017-11-19] MEDS: Gabapentin 100 MG CAPSULE PO SCH (20:53)
[2017-11-19] MEDS: Insulin LISPRO 300 UNITS/3 ML VIAL SQ SCH (21:25)
[2017-11-19] MEDS: Acetaminophen 325 MG TABLET PO PRN (21:59)
[2017-11-19] MEDS: *HR* Heparin 5,000 UNIT/ML VIAL SQ SCH (22:13)
[2017-11-20 05:54] LABS: Basophils % 0.7 %; Eosinophils # 0.1 K/mcL (0.0-0.6); Hematocrit 33.8 % (35.3-44.9); Immature Granulocytes % 0.3 % (0-4); Lymphocytes # 0.6 K/mcL (0.6-4.6); Lymphocytes % 10.2 %; Mean Corpuscular HGB Conc 31.4 g/dL (31.6-35.5); Mean Corpuscular Hemoglobin 29.9 pg (28.0-33.3); Mean Corpuscular Volume 95.2 fL (83.0-100.0); Mean Platelet Volume 9.6 fL (9.4-12.4); Monocytes # 0.5 K/mcL (0.0-1.3); Monocytes % 7.4 %; Neutrophils # 4.8 K/mcL (1.6-8.9); Platelet Count 244 K/mcL (140-400); Red Blood Count 3.55 M/mcL (3.82-4.97); Red Cell Distribution Width 14.7 % (11.5-14.5); Segmented Neutrophils % 79.4 %
[2017-11-20 05:56] LABS: Hemoglobin 10.6 g/dL (11.5-15.4)
[2017-11-20 06:20] LABS: Calcium 9.2 mg/dL (8.6-10.3)
[2017-11-20] MEDS: *HR* Heparin 5,000 UNIT/ML VIAL SQ SCH ×3 (06:50→21:14)
[2017-11-20] MEDS ORDERED: 0.9 % Sodium Chloride 250 ML IVC PRN (07:21)
[2017-11-20] MEDS ORDERED: 0.9 % Sodium Chloride 1,000 ML PRIME SCH (07:30)
[2017-11-20 07:49] LABS: Hepatitis B Surface Antigen Nonreactive (Nonreactive)
[2017-11-20] MEDS: Acetaminophen 325 MG TABLET PO PRN ×2 (08:00→12:23)
[2017-11-20] MEDS: Ondansetron 4 MG/2 ML VIAL IVP PRN ×2 (08:39→15:07)
--- NOTE | 2017-11-20 10:49 | Nephrology Consult Note ---
<Galina Astudillo Jose - Last Filed: 11/20/17 10:57> Date of Encounter: 11/20/17 Time of Encounter: 10:46 Assessment and Plan (1) ESRD (end stage renal disease) on dialysis Status: Chronic HD today Will need renal diet when diet advanced Avoid nephrotoxins if possible (2) Toe ulcer Status: Acute per primary team Qualifiers: Laterality: right Non-pressure ulcer stage: limited to breakdown of skin Qualified Code(s): L97.511 - Non-pressure chronic ulcer of other part of right foot limited to breakdown of skin (3) Essential hypertension Status: Chronic per primary team History of Present Illness - Reason for Consult Consult date: 11/20/17 - Chief Complaint toe ulcer, ESRD on dialysis - History of Present Illness Mrs. Eng is a 71-year-old female well known to our practice with a PMH significant for coronary arterial disease, peripheral vascular disease, end- stage renal disease and hypertension who presents to the ER on 11/19/17 due to headaches, toe ulcer, and high blood pressures. CT of right foot was ordered which showed subtle irregularity and lucency involving the dorsal cortex of the distal proximal 1st phalanx with questionable cortical regularity of the base of the distal 1st phalanx. Findings concerning for osteomyelitis given the soft tissue edema. Also noted were 2 tiny locules of gas are seen along the dorsal aspect of the interphalangeal joint of the great toe. Patient was admitted to the medical surgical floor for management of toe cellulitis with possibility of osteomyelitis. Nephrology has been consulted to manage her dialysis while hospitalized. Patient did not go to dialysis yesterday before coming into the ED. Past Med Surg Social Fam HX - Past Medical History Medical history: coronary artery disease, diabetes, dialysis, hypertension, renal disease, other Psychiatric history: anxiety, depression - Past Surgical History Surgical History: carotid endarterectomy, hysterectomy, orthopedic, other, thyroidectomy, other - Social History Smoking Status: Never smoker Smokeless Tobacco Status: No Alcohol use: none Drug use: none - Family History Mother Adopted: No Family Member Ethnicity: Non- Living Status: Hx Family Cardiac Disorders: No Hx Family Respiratory Disorders: Yes Hx Family Cancer: Yes Hx Family GI Disorders: No Hx Family Endocrine Disorder: No Hx Family Neuromuscular Disorders: No Hx Family Neurologic Disorders: No Hx Family HEENT Disorders: No Hx Family Autoimmune Disorders: No Father Adopted: No Family Member Ethnicity: Non- Living Status: Hx Family Cardiac Disorders: Yes Hx Family Respiratory Disorders: Yes Hx Family Cancer: No Hx Family GI Disorders: No Hx Family Endocrine Disorder: Yes Hx Family Neuromuscular Disorders: No Hx Family Neurologic Disorders: Yes Hx Family HEENT Disorders: No Hx Family Autoimmune Disorders: No Medications and Allergies Lidocaine/Prilocaine [Emla] 1 appl TP ONCE PRN 10/09/16 [History] Clopidogrel [Plavix] 75 mg PO DAILY tablet 10/16/16 [Rx] DiphenhydraMINE [Benadryl] 25 mg PO HS PRN #10 02/05/17 [Rx] Citalopram [CeleXA] 20 mg PO DAILY 03/30/17 [History] Metoprolol [Lopressor] 25 mg PO BID 03/30/17 [History] Aspirin Enteric Coated [Aspirin EC] 81 mg PO DAILY #30 tablet. 06/11/17 [Rx] Multivitamin [Multivitamins] 1 cap PO DAILY 09/03/17 [History] Acetaminophen [Tylenol] 650 mg PO Q6HR PRN #30 tablet 09/10/17 [Rx] Ondansetron HCl [Zofran] 4 mg PO TID PRN 09/20/17 [History] Gabapentin [Neurontin] 100 mg PO TID #15 capsule 09/21/17 [Rx] HYDROcodone/Acet 5/325 mg [[place] 5-325 mg] 1 tab PO Q8HR PRN 3 Days #7 tablet [Rx] Vancomycin [Vancocin] 1 each IVPB POSTDI #20 vial 11/23/17 [Rx] 3 Allergy/AdvReac Type Severity Reaction Status Date / Time Penicillins Allergy Hives Verified 11/19/17 18:23 Review of Systems All Systems: reviewed and no additional remarkable complaints except as stated Constitutional: headache(s), malaise Nose, mouth and throat: no dizziness Cardiovascular: pedal edema, no chest pain Musculoskeletal: right: foot pain, foot swelling Integumentary: non-healing lesions, skin ulcer, wounds Exam - Vital Signs Vital signs: Initial Vital Signs Temp Pulse Resp BP Pulse Ox 98.0 F 71 14 195/78 97 11/19/17 14:46 11/19/17 14:46 11/19/17 14:46 11/19/17 14:46 11/19/17 14:46 Vital Signs - Last 8 Hours Temp Pulse Resp BP Pulse Ox 11/20/17 09:45 194/93 11/20/17 09:30 185/83 11/20/17 09:15 192/93 11/20/17 09:00 188/92 11/20/17 08:45 200/82 11/20/17 08:30 211/97 11/20/17 08:15 98.5 F 18 209/102 11/20/17 07:03 97.5 F L 85 16 183/70 96 11/20/17 06:35 187/84 11/20/17 03:50 97.8 F 75 16 178/75 97 Intake and Output 11/19/17 11/20/17 11/20/17 23:59 07:59 15:59 Intake Total 150 / 1150 600 / 600 Balance 150 / 1150 600 / 600 Intake: IV Fluids 150 / 150 Levaquin Premix 750mg/150 mL 150 / 150 750 mg In 150 ml @ 100 mls/hr IVPB ONCE ONE Rx#:[id number] Oral 0 / 0 Intake, Rinseback and Flushes 600 / 600 Other: Meal npo Percent of Meal Consumed 0% # Urine Diapers 0 # Bowel Movement Diapers 0 Weight 75 kg 75 kg Blood Glucose* 84 87 Hemodialysis Net Fluid Removed 1827 (mL) Patient Weight 11/20/17 23:59 Weight 75 kg - General Appearance General appearance: chronically ill, frail EENT: ATNC, mucous membranes moist, hearing intact, vision intact Neck: supple Respiratory: clear Cardiology: no edema, normal S1, normal S2 Gastrointestinal: no tenderness, no guarding Integumentary: ulcer (right great toe) Psychiatric: cooperative Results - Lab Results 11/20/17 05:18 11/20/17 05:18 Most recent lab results Calcium 9.2 mg/dL (8.6-10.3) 11/20/17 05:18 Consult Discharge Plan - Plan Instructions: Chronic Hypertension (DC) Additional Instructions: Keep right heel floated off of bed, prevalon boot ordered. Minimal weight bearing or activity Heel touch only for transfers Please have post operative shoe in place during transfers for protection. Referrals: Rudi Avila MD [Primary Care Provider] - 11/30/17 9:45 am () Luther Tijerina DPM [Partnered Physician] - (in 1 week) Sylvia Dempsey ZIGZAG TUNNEL ELASTIC OPERATOR [Advanced Practice Nurse] - 12/05/17 () Prescriptions: HYDROcodone/Acet 5/325 mg [[place] 5-325 mg] 1 tab PO Q8HR PRN 3 Days #7 tablet PRN Reason: Moderate Pain Vancomycin [Vancocin] 1 each IVPB POSTDI #20 vial <PortillojaninenandoKala rankin - Last Filed: 11/26/17 00:44> Date of Encounter: 11/20/17 Assessment and Plan (1) ESRD (end stage renal disease) on dialysis Status: Chronic (2) Osteomyelitis Status: Acute Qualifiers: Osteomyelitis type: other acute Osteomyelitis location: foot Laterality: right Qualified Code(s): M86.171 - Other acute osteomyelitis, right ankle and foot (3) Essential hypertension Status: Chronic Exam - Vital Signs Vital signs: Initial Vital Signs Temp Pulse Resp BP Pulse Ox 98.0 F 71 14 195/78 97 11/19/17 14:46 11/19/17 14:46 11/19/17 14:46 11/19/17 14:46 11/19/17 14:46 Results - Lab Results 11/23/17 05:11 11/23/17 05:11 Most recent lab results Calcium 9.9 mg/dL (8.6-10.3) 11/23/17 05:11 - Attending Attestation I examined this patient and my medical decision-making was reviewed with the Resident Physician/ZIGZAG TUNNEL ELASTIC OPERATOR. I agree with the documented findings, disposition and treatment plan as described except to the extent set forth below. Pt seen and examined known to me from outpatient for ESRD on HD at [facility] admitted for possible osteomyelitis. Will resume HD with UF as tolerated. Lytes stable. Resume home meds. Will monitor hgb.
[2017-11-20] MEDS: Insulin LISPRO 300 UNITS/3 ML VIAL SQ SCH ×4 (12:06→21:00)
[2017-11-20] MEDS: Gabapentin 100 MG CAPSULE PO SCH ×3 (12:23→21:14)
[2017-11-20] MEDS: Aspirin Enteric Coated 81 MG Tablet PO SCH (12:23)
--- NOTE | 2017-11-20 13:02 | Internal Med Progress Note ---
Date of Encounter: 11/20/17 Time of Encounter: 10:45 - Assessment and plan (1) Toe ulcer Current Visit: Yes Status: Acute Assessment and plan: With underlying osteomyelitis. Continue IV antibiotics. Podiatry consulted. Plan for surgery tomorrow. Keep nothing by mouth after midnight. Pain control with Tylenol and [place]. High risk for complications due to osteomyelitis. Qualifiers: Laterality: right Non-pressure ulcer stage: limited to breakdown of skin Qualified Code(s): L97.511 - Non-pressure chronic ulcer of other part of right foot limited to breakdown of skin (2) Depression, major, single episode, mild Current Visit: Yes Status: Chronic Assessment and plan: Continue Celexa (3) ESRD (end stage renal disease) on dialysis Current Visit: Yes Status: Chronic Assessment and plan: Patient dialyzed today. Nephrology following. 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 Qualifiers: Lower extremity ulceration location: calf Qualified Code(s): I70.232 - Atherosclerosis of [place] arteries of right leg with ulceration of calf; I70.242 - Atherosclerosis of [place] arteries of left leg with ulceration of calf (5) Essential hypertension Current Visit: Yes Status: Chronic Assessment and plan: Elevated today. Likely due to pain. Will control pain better and monitor blood pressure. If persistently hypertensive, will adjust antihypertensive regimen. (6) DVT prophylaxis Current Visit: Yes Status: Acute - Time Spent With Patient Total time spent is greater than 50% in coordination of care (as documented) at patient's floor/unit and/or counseling patient: - Subjective Interval history: Patient seen during dialysis. She is lying in bed and appears comfortable. Reports pain in her right great toe. She also reported nausea earlier this morning and was given Zofran. No fever reported overnight. - Constitutional Vitals: Temp Pulse Resp BP Pulse Ox 98.5 F 85 18 146/67 96 11/20/17 11:15 11/20/17 07:03 11/20/17 11:15 11/20/17 11:15 11/20/17 07:03 General appearance: Present: cooperative, A&O X 3, no acute distress, answers questions appropriately - Neck Neck exam general surgery: Present: supple, trachea midline. Absent: lymphadenopathy - Respiratory Respiratory exam: Present: CTAB. Absent: accessory muscle use, rales, rhonchi, wheezes - Cardiovascular Cardiovascular exam: Present: RRR, +S1, +S2. Absent: diastolic murmur, gallop, rubs, systolic murmur - GI/Abdominal GI/Abdominal exam: Present: normal bowel sounds, soft, no peritoneal signs. Absent: distended, tenderness - Extremities Exam Extremities exam: Present: pedal edema, warm, radial pulses palpable and symmetrical. Absent: calf tenderness, cyanotic Additional comments: Erythema and swelling involving the right great toe. Wound bandaged. - Neurological Exam Neurological exam: Present: alert, oriented X3, no focal deficits, strengths equal and symetr throughout. Absent: facial droop, speech deficit - Skin Skin exam: Present: dry, intact Internal Medicine: Result - Labs CBC & Chem 7: 11/20/17 05:18 11/20/17 05:18 Labs: Short CBC 11/20/17 Range/Units 05:18 WBC 6.1 (4.3-11.1) K/mcL Hgb 10.6 L D (11.5-15.4) g/dL Hct 33.8 L (35.3-44.9) % Plt Count 244 (140-400) K/mcL Neutrophils # 4.8 (1.6-8.9) K/mcL BMP 11/20/17 05:18 Sodium 136 Potassium 4.0 Chloride 99 Carbon Dioxide 21 L BUN 38 H Creatinine 6.02 H Glucose 82 Calcium 9.2 Consult Discharge Plan - Plan Referrals: Rudi Avila MD [Primary Care Provider] -
[2017-11-20] MEDS: *HR* HYDROcodone/Acet 5/325 mg TABLET PO PRN ×2 (15:05→21:25)
[2017-11-20] MEDS: Cefepime HCl 1,000 MG in Water for inj. (sterile) 20 ML 10 ML IVPB SCH (15:08)
[2017-11-20] MEDS: Lactobacillus 1 EACH CAP.SPRINK PO SCH ×2 (15:09→21:14)
[2017-11-20] MEDS ORDERED: Vancomycin 500 MG in 0.9 % Sodium Chloride Mini Bag 100 ML IVPB ONE (16:00)
--- NOTE | 2017-11-20 19:25 | Electrocardiograph Report ---
[address] [place] [address] Test Date: 2017-11-19 Pat Name: Zenaida Eng Department: 103 Room: 2A48 Gender: F [employer] Team Lead: KADEN : 1945 Requested By: Qeu Polo Order Number: [id number] Reading MD: Fabián Mack Measurements Intervals [place] Rate: 73 P: 35 OK: 154 QRS: 25 QRSD: 96 T: 15 QT: 436 QTc: 461 Interpretive Statements SINUS RHYTHM Electronically Signed On 11-20-2017 19:24:07 EDT by Fabián Mack
--- NOTE | 2017-11-20 19:47 | Podiatry Consult Note ---
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 I had a thorough review with the patient and her family bedside regarding her condition, my findings, and treatment options. We discussed the infection present in the right big toe and the CT scan done suggesting likely bone infection of the bones in the big toe. We discussed incision and drainage and amputation of the right big toe with possible debridement of metatarsal bone. Nature of procedure, risks versus benefits, potential complications and consequences of the procedure/surgery discussed at length including but not limited to persistence of infection, worsening of infection, loss of leg or partial foot, , pneumonia, blood clot, pulmonary embolism, heart attack, loss of functional ability, wound healing problems, need for further surgery etc.no guarantees were made as to the outcome of the procedures and it was explained to the patient that she is high risk for limb loss. It was also explained this could be a staged procedure and the wound left open on the right foot and may have to heal on its own or more surgery could be needed meaning return trips to the operating room. All of her questions were answered as well as the family's questions and the informed consent was signed. NPO after 7am. Qualifiers: Osteomyelitis type: other acute Osteomyelitis location: foot Laterality: right Qualified Code(s): M86.171 - Other acute osteomyelitis, right ankle and foot History of Present Illness Chief complaint: infection right big toe HPI: Ms. 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 Du. She is with her bedside and they say after the visit the toe worsened and more pus could be seen around the ulcer on the right big toe and the toe turned more red. She had a headache that would not go away which prompted them to come to the hospital and subsequent examination of the right big toe lead to the ER obtaining a CT scan which showed probable osteomyelitis of the right hallux, no definite abscess and two small foci of air at the level of the hallux IP joint. She says she has not had a fever. Podiatry was consulted for evaluation of the right hallux. Past Med Surg Social Fam HX - Past Medical History Medical history: coronary artery disease, diabetes, dialysis, hypertension, renal disease, other Psychiatric history: anxiety, depression - Past Surgical History Surgical History: carotid endarterectomy, hysterectomy, orthopedic, other, thyroidectomy, other (amputation left leg) - Social History Smoking Status: Never smoker Smokeless Tobacco Status: No Alcohol use: none Drug use: none - Family History Mother Adopted: No Family Member Ethnicity: Non- Living Status: Hx Family Cardiac Disorders: No Hx Family Respiratory Disorders: Yes Hx Family Cancer: Yes Hx Family GI Disorders: No Hx Family Endocrine Disorder: No Hx Family Neuromuscular Disorders: No Hx Family Neurologic Disorders: No Hx Family HEENT Disorders: No Hx Family Autoimmune Disorders: No Father Adopted: No Family Member Ethnicity: Non- Living Status: Hx Family Cardiac Disorders: Yes Hx Family Respiratory Disorders: Yes Hx Family Cancer: No Hx Family GI Disorders: No Hx Family Endocrine Disorder: Yes Hx Family Neuromuscular Disorders: No Hx Family Neurologic Disorders: Yes Hx Family HEENT Disorders: No Hx Family Autoimmune Disorders: No Medications and Allergies Lidocaine/Prilocaine [Emla] 1 appl TP ONCE PRN 10/09/16 [History] Clopidogrel [Plavix] 75 mg PO DAILY tablet 10/16/16 [Rx] DiphenhydraMINE [Benadryl] 25 mg PO HS PRN #10 02/05/17 [Rx] Citalopram [CeleXA] 20 mg PO DAILY 03/30/17 [History] Metoprolol [Lopressor] 25 mg PO BID 03/30/17 [History] Aspirin Enteric Coated [Aspirin EC] 81 mg PO DAILY #30 tablet. 06/11/17 [Rx] Multivitamin [Multivitamins] 1 cap PO DAILY 09/03/17 [History] Acetaminophen [Tylenol] 650 mg PO Q6HR PRN #30 tablet 09/10/17 [Rx] Ondansetron HCl [Zofran] 4 mg PO TID PRN 09/20/17 [History] Gabapentin [Neurontin] 100 mg PO TID #15 capsule 09/21/17 [Rx] 3 Allergy/AdvReac Type Severity Reaction Status Date / Time Penicillins Allergy Hives Verified 11/19/17 18:23 All Systems Reviewed: The remainder of the systems were reviewed and are negative - Constitutional Constitutional: headache(s), no fever(s) - Cardiovascular Cardiovascular: no chest pain, no dyspnea - Respiratory Respiratory: no cough, no dyspnea - Musculoskeletal Musculoskeletal: numbness Physical Exam - Constitutional Vitals: Temp Pulse Resp BP Pulse Ox 98.1 F 68 17 116/58 92 11/20/17 19:04 11/20/17 19:04 11/20/17 19:04 11/20/17 19:04 11/20/17 19:04 - Extremities Exam Additional comments: well-developed female in no acute distress Vascular: right foot is warm to touch. Capillary refill time to right foot digits is approximately 3 seconds. mild edema of right hallux. Derm: erythema of the right hallux not extending past the 1st MTP joint, ulceration with eschar dorsal aspect of digit with a small amount of purulent drainage expressed. no crepitus. Musc: no pain elicited with palpation of the right hallux or with movement of the IP and MTP joints. no pain with passive ROM of the right ankle joint. Neuro: diminished protective sensation Lungs: non-labored respirations. Results - Labs Result Diagrams: 11/20/17 05:18 11/20/17 05:18 Labs: Abnormal lab results RBC 3.55 M/mcL (3.82-4.97) L 11/20/17 05:18 Hgb 10.6 g/dL (11.5-15.4) L D 11/20/17 05:18 Hct 33.8 % (35.3-44.9) L 11/20/17 05:18 MCHC 31.4 g/dL (31.6-35.5) L 11/20/17 05:18 RDW 14.7 % (11.5-14.5) H 11/20/17 05:18 Carbon Dioxide 21 mEq/L (23-29) L 11/20/17 05:18 BUN 38 mg/dL (8-23) H 11/20/17 05:18 Creatinine 6.02 mg/dL (0.60-1.20) H 11/20/17 05:18 Est GFR ( Amer) 8 (> 60) L 11/20/17 05:18 Est GFR (Non-Af Amer) 7 (> 60) L 11/20/17 05:18 H & H 04/03/18 Range/Units 05:18 Hgb 10.6 L D (11.5-15.4) g/dL Hct 33.8 L (35.3-44.9) % All other labs normal. - Diagnostic results Ankle/Foot CT: report reviewed, image reviewed, other (osteomyelitis right hallux, two tiny locules of subcutaneous air/gas in area of ulceration) Consult Discharge Plan - Plan Referrals: Rudi Avila MD [Primary Care Provider] -
--- NOTE | 2017-11-20 20:37 | Anesthesia Evaluation PreOp ---
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: CVA (hx of CVA per imaging - no deficits currently), Other ( depression) Other Medical History: Renal (ESRD), Diabetes Type II, GERD Anesthesia History: No Prior Anesthetic Complications Alcohol Use: none Drug use: none Medications and Allergies Lidocaine/Prilocaine [Emla] 1 appl TP ONCE PRN 10/09/16 [History] Clopidogrel [Plavix] 75 mg PO DAILY tablet 10/16/16 [Rx] DiphenhydraMINE [Benadryl] 25 mg PO HS PRN #10 02/05/17 [Rx] Citalopram [CeleXA] 20 mg PO DAILY 03/30/17 [History] Metoprolol [Lopressor] 25 mg PO BID 03/30/17 [History] Aspirin Enteric Coated [Aspirin EC] 81 mg PO DAILY #30 tablet. 06/11/17 [Rx] Multivitamin [Multivitamins] 1 cap PO DAILY 09/03/17 [History] Acetaminophen [Tylenol] 650 mg PO Q6HR PRN #30 tablet 09/10/17 [Rx] Ondansetron HCl [Zofran] 4 mg PO TID PRN 09/20/17 [History] Gabapentin [Neurontin] 100 mg PO TID #15 capsule 09/21/17 [Rx] 3 Allergy/AdvReac Type Severity Reaction Status Date / Time Penicillins Allergy Hives Verified 11/19/17 18:23 - Meds/Allergy Pre-op Review Medications Reviewed: Yes Allergies Reviewed: Yes Beta Blockers on Current Med List: Yes If Beta Blockers taken, Date/Time (Last Dose taken): - metoprolol 12:23 Anesthesia Results - Labs 11/20/17 05:18 11/20/17 05:18 - Imaging EKG: report reviewed, image reviewed (SR) Additional studies: Limited TTE: Impressions: LVEF 65%. Mild-moderate concentric left ventricular hypertrophy. Definity echo contrast was used. RV is dilated with normal function. Valves were not evaluated on this limited study. Anesthesia Exam Last Vital Signs Temp 98.1 F 11/20/17 19:04 Pulse 68 11/20/17 19:04 Resp 17 11/20/17 19:04 BP 116/58 11/20/17 19:04 Pulse Ox 92 11/20/17 19:04 Weight: 75 kg NPO (# of Hours): > 8 hrs - HEENT Pupil (Motor): Pupils equal, EOMI Mallampati: I Teeth: Edentulous Oral Opening: Greater than 3 - POLICE DETENTION ATTENDANT LOC: Oriented - Cardiac Rhythm: Regular Murmur: None - Pulmonary Breath Sounds: bilateral Clear Respiratory Effort: Symmetrical Anesthesia Assess/Plan ASA Score: 3 Modified Tar[place] Scale for Level of Consciousness: Cooperative, oriented, and tranquil Anesthetic Plan: MAC Monitoring Plan: Standard Monitors Recovery Plan: PACU
[2017-11-21 01:55] LABS: Hepatitis B Surface Antibody 38.19 mIU/mL
[2017-11-21] MEDS ORDERED: Bacitracin 50,000 UNIT, Sodium Chloride IRRigation 1,000 ML IR ONE (06:00)
[2017-11-21] MEDS: *HR* HYDROcodone/Acet 5/325 mg TABLET PO PRN ×2 (06:15→19:42)
[2017-11-21] MEDS: *HR* Heparin 5,000 UNIT/ML VIAL SQ SCH ×3 (06:16→22:41)
[2017-11-21 07:04] LABS: Basophils % 0.5 %; Eosinophils # 0.1 K/mcL (0.0-0.6); Eosinophils % 2.1 %; Hematocrit 37.5 % (35.3-44.9); Hemoglobin 11.7 g/dL (11.5-15.4); Immature Granulocytes % 0.5 % (0-4); Lymphocytes # 0.8 K/mcL (0.6-4.6); Lymphocytes % 14.2 %; Mean Corpuscular HGB Conc 31.2 g/dL (31.6-35.5); Mean Corpuscular Hemoglobin 30.2 pg (28.0-33.3); Mean Corpuscular Volume 96.6 fL (83.0-100.0); Mean Platelet Volume 9.3 fL (9.4-12.4); Monocytes # 0.4 K/mcL (0.0-1.3); Monocytes % 7.8 %; Neutrophils # 4.2 K/mcL (1.6-8.9); Platelet Count 274 K/mcL (140-400); Red Blood Count 3.88 M/mcL (3.82-4.97); Segmented Neutrophils % 74.9 %
[2017-11-21 07:34] LABS: Calcium 9.7 mg/dL (8.6-10.3)
[2017-11-21] MEDS ORDERED: 0.9 % Sodium Chloride 250 ML IVC PRN (08:43)
--- NOTE | 2017-11-21 10:01 | Internal Med Progress Note ---
Date of Encounter: 11/21/17 Time of Encounter: 10:00 - Assessment and plan (1) Toe ulcer Current Visit: Yes Status: Acute Assessment and plan: With underlying osteomyelitis. Planned surgery later today. Somnolent at this time likely due to [place] use. We will continue to monitor closely. Continue current antibiotics. High risk for complications. Qualifiers: Laterality: right Non-pressure ulcer stage: limited to breakdown of skin Qualified Code(s): L97.511 - Non-pressure chronic ulcer of other part of right foot limited to breakdown of skin (2) Depression, major, single episode, mild Current Visit: Yes Status: Chronic Assessment and plan: Continue Celexa (3) ESRD (end stage renal disease) on dialysis Current Visit: Yes Status: Chronic Assessment and plan: Patient being dialyzed today. Usually gets dialyzed on a Sunday schedule. Nephrology following. (4) Atherosclerosis of [place] artery of both lower extremities with bilateral ulceration Current Visit: Yes Status: Chronic Assessment and plan: Continue aspirin and Plavix. She may have trouble healing after surgery due to underlying diabetes and peripheral vascular disease Qualifiers: Lower extremity ulceration location: calf Qualified Code(s): I70.232 - Atherosclerosis of [place] arteries of right leg with ulceration of calf; I70.242 - Atherosclerosis of [place] arteries of left leg with ulceration of calf (5) Essential hypertension Current Visit: Yes Status: Chronic Assessment and plan: Blood pressure is improved today. Continue monitoring blood pressure. Continue IV hydralazine as needed. Blood pressure intermittently elevated due to pain. (6) DVT prophylaxis Current Visit: Yes Status: Acute Assessment and plan: Continue subcutaneous heparin (7) Diabetes mellitus Current Visit: Yes Status: Chronic Assessment and plan: Diet controlled. Blood sugars are normal at this time. We will monitor closely. Qualifiers: Diabetes mellitus type: type 2 Diabetes mellitus buttermaker helper insulin use: with buttermaker helper use Diabetes mellitus complication status: with kidney complications Diabetes mellitus complication detail: with chronic kidney disease Chronic kidney disease stage: on chronic dialysis Qualified Code(s) : E11.22 - Type 2 diabetes mellitus with diabetic chronic kidney disease; N18.6 - End stage renal disease; N18.6 - End stage renal disease; N18.6 - End stage renal disease; N18.6 - End stage renal disease; Z79.4 - detention (current) use of insulin; Z79.4 - detention (current) use of insulin; 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 Very somnolent but awakes to verbal commands. Answers questions appropriately. Reported pain of 6 out of 10 in intensity. Today this morning in right foot. Improved after she received [place]. She is scheduled for surgery later today. - Constitutional Vitals: Temp Pulse Resp BP Pulse Ox 98.1 F 70 16 151/65 91 11/21/17 07:18 11/21/17 07:18 11/21/17 07:18 11/21/17 07:18 11/21/17 07:18 General appearance: Present: cooperative, no acute distress, answers questions appropriately Exam: Somnolent but awakes and answers questions appropriately - Neck Neck exam general surgery: Present: supple, trachea midline. Absent: lymphadenopathy - Respiratory Respiratory exam: Present: CTAB. Absent: accessory muscle use, rales, rhonchi, wheezes - Cardiovascular Cardiovascular exam: Present: RRR, +S1, +S2. Absent: diastolic murmur, gallop, rubs, systolic murmur - GI/Abdominal GI/Abdominal exam: Present: normal bowel sounds, soft, no peritoneal signs. Absent: distended, tenderness - Extremities Exam Extremities exam: Present: tenderness (And erythema involving the right great toe. Currently bandaged), warm, radial pulses palpable and symmetrical. Absent : calf tenderness, cyanotic, pedal edema - Neurological Exam Neurological exam: Present: no focal deficits. Absent: facial droop, speech deficit - Skin Skin exam: Present: dry, intact Internal Medicine: Result - Labs CBC & Chem 7: 11/21/17 06:39 11/21/17 06:39 Labs: Short CBC 11/21/17 Range/Units 06:39 WBC 5.6 (4.3-11.1) K/mcL Hgb 11.7 (11.5-15.4) g/dL Hct 37.5 (35.3-44.9) % Plt Count 274 (140-400) K/mcL Neutrophils # 4.2 (1.6-8.9) K/mcL BMP 11/21/17 06:39 Sodium 137 Potassium 4.0 Chloride 99 Carbon Dioxide 28 BUN 21 Creatinine 4.35 H Glucose 93 Calcium 9.7 Consult Discharge Plan - Plan Referrals: Rudi Avila MD [Primary Care Provider] -
[2017-11-21] MEDS ORDERED: Lidocaine 1% 20 ML MDV ONE ×2 (13:46→15:13)
[2017-11-21] MEDS ORDERED: Lidocaine -MPF 2% 2 ML VIAL ONE (13:50)
[2017-11-21] MEDS ORDERED: *HR* Propofol 200 MG/20 ML VIAL IVP ONE (13:50)
[2017-11-21] MEDS ORDERED: Propofol 500 MG/50 ML INFUS..BTL ONE (13:50)
[2017-11-21] MEDS ORDERED: Ethanol\\Acetic Acid\\Na Ace\\Ben 1,000 ML IRRIG.SOLN IR ONE (15:13)
[2017-11-21] MEDS: Insulin LISPRO 300 UNITS/3 ML VIAL SQ SCH ×4 (15:36→20:34)
[2017-11-21] MEDS: Gabapentin 100 MG CAPSULE PO SCH ×3 (15:37→20:41)
[2017-11-21] MEDS: Aspirin Enteric Coated 81 MG Tablet PO SCH (15:38)
[2017-11-21] MEDS: Lactobacillus 1 EACH CAP.SPRINK PO SCH ×2 (15:39→20:41)
[2017-11-21] MEDS ORDERED: Vancomycin 500 MG in 0.9 % Sodium Chloride Mini Bag 100 ML IVPB ONE (17:00)
--- NOTE | 2017-11-21 17:34 | Nephrology Progress Note ---
Date of Encounter: 11/21/17 Time of Encounter: 12:00 - Assessment and Plan (1) ESRD (end stage renal disease) on dialysis Current Visit: Yes Status: Chronic Continue HD with UF as tolerated with shorter treatment today after back to back sessions Lytes WNL (2) Osteomyelitis Current Visit: Yes Status: Acute Abx and overall care per primary team and podiatry Pain control as needed Qualifiers: Osteomyelitis type: other acute Osteomyelitis location: foot Laterality: right Qualified Code(s): M86.171 - Other acute osteomyelitis, right ankle and foot (3) Essential hypertension Current Visit: Yes Status: Chronic BP redaings improved after each HD session Continue current BP regimen Subjective Interval history: Interim events noted, pt seen and examined on HD. s/p HD yesterday as well for missing sunday session Objective - Vital Signs Vital signs: Vital Signs Temp Pulse Resp BP Pulse Ox 11/21/17 11:50 97.8 F 79 16 173/68 98 11/21/17 11:35 97.4 F L 15 127/63 11/21/17 11:25 99/50 11/21/17 11:10 109/53 11/21/17 10:55 117/54 11/21/17 10:40 127/63 11/21/17 10:25 132/65 11/21/17 10:10 144/66 11/21/17 09:55 145/64 11/21/17 09:40 152/71 11/21/17 09:25 97.2 F L 15 148/69 11/21/17 07:18 98.1 F 70 16 151/65 91 11/21/17 03:33 98.1 F 75 16 166/73 93 11/20/17 22:52 98.7 F 77 16 126/64 92 11/20/17 19:04 98.1 F 68 17 116/58 92 Intake and Output 11/21/17 11/21/17 11/21/17 07:59 15:59 23:59 Intake Total 600 / 600 Output Total 2600 / 2600 Balance -1999 / -1999 - Intake: Oral 0 / 0 Intake, Rinseback and Flushes 600 / 600 Output: Urine 0 / 0 Total Dialysis (HD) Output 2600 / 2600 Estimated Blood Loss Other: Meal NPO Percent of Meal Consumed 0% Weight 72.6 kg Blood Glucose* 88 99 90 Hemodialysis Net Fluid Removed 2000 (mL) Patient Weight 11/21/17 23:59 Weight 72.6 kg - General Appearance General appearance: Present: chronically ill EENT: Present: ATNC, mucous membranes moist Neck: Present: no JVD, supple Respiratory: Present: clear Cardiology: Present: no edema, normal S1, normal S2 Dialysis Vascular Access: Arteriovenous Fistula thrill: Yes bruit: Yes Gastrointestinal: Present: no tenderness, no guarding Integumentary: Present: warm and dry Neurologic: Present: no focal deficit Musculoskeletal: Present: erythema (great toe right) Psychiatric: Present: mood/affect appropriate - Lab 11/21/17 06:39 11/21/17 06:39 Most recent lab results Calcium 9.7 mg/dL (8.6-10.3) 11/21/17 06:39 Consult Discharge Plan - Plan Referrals: Rudi Avila MD [Primary Care Provider] -
--- NOTE | 2017-11-21 17:39 | Operative Note ---
Date of procedure: 11/21/17 Pre-op diagnosis: right hallux osteomyelitis, abscess Post-op diagnosis: same Procedure: incision and drainage right foot amputation right hallux Implants: none Complications: none Anesthesia: GETA Local Anesthetics: 1% Lidocaine HCL SubQ (cc) Surgeon: Luther Tijerina Was there an social science research assistant present: No Estimated blood loss (cc): 10 Specimen: Pathology-right great toe, Micrbiology-culture swab right great toe, ulcer Condition: stable Disposition: PACU Procedure in Detail: Indications: 71-year-old female with right diabetic foot infection and osteomyelitis suspected on CT scan. Nature of the above procedures discussed with the patient at length as well as the risks versus benefits potential complications and consequences of the procedure. Patient was taken from the preoperative holding area placed on the operating room table in the supine position the right foot was scrubbed prepped and draped in the usual sterile fashion. 1% lidocaine plain was injected into the right foot following sedation anesthesia. A right ankle tourniquet was applied however was not inflated during the entire procedure. The following procedure then began. Incision and drainage, amputation of right hallux. Attention was directed to the dorsal aspect of the patient's right foot where an ulceration was present over the interphalangeal joint. A #15 blade was used to excise this ulceration and it was sent to pathology. Underlying tissue at the level of the interphalangeal joint did exhibit purulent drainage. Culture swabs were taken and sent to microbiology. It should also be noted that upon incising the ulceration there were shards the proximal and distal phalanx present in the soft tissue. A separate incision was carried out more proximal in the area was probed and explored and some purulent drainage was expressed. There was no purulent drainage around the metatarsophalangeal joint. Given the condition of the toe bone which was soft and consistent with osteomyelitis hallux amputation was then performed and the right hallux was disarticulated at the metatarsophalangeal joint and following disarticulation and sending the right great toe to pathology the area was inspected. The remaining tissue did not appear devitalized and there was no purulence able to be expressed. The site was flushed with copious amounts of normal sterile saline with bacitracin. The flexor and extensor tendons were traced as far proximally as possible at the amputation site and transected. As there was no devitalized tissue present at the amputation site, no purulence could be expressed, and there was no cellulitis of the remaining skin at the amputation site, the site was deemed adequate for closure and the plantar skin was flapped upwards and the amputation site was closed with 2-0 Prolene. Postoperative bandaging included Xeroform, 4 x 4 gauze abdominal pad Kerlix and Medipore tape. The patient tolerated the anesthesia and the procedure well and adequate hemostasis was present at the conclusion of the procedure. Capillary refill time was intact to all remaining digits of the right foot. She will return to the floor where she will continue IV antibiotics.
[2017-11-21] MEDS ORDERED: Levofloxacin 500 MG/100 ML 500 MG/100 ML BAG IVPB SCH (18:00)
[2017-11-21] MEDS: Cefepime HCl 1,000 MG in Water for inj. (sterile) 20 ML 10 ML IVPB SCH (18:26)
[2017-11-22] MEDS: Acetaminophen 325 MG TABLET PO PRN (00:42)
[2017-11-22] MEDS: *HR* Heparin 5,000 UNIT/ML VIAL SQ SCH ×3 (05:49→20:14)
[2017-11-22 07:34] LABS: Calcium 9.8 mg/dL (8.6-10.3); Potassium 4.2 mEq/L (3.5-5.1)
[2017-11-22] MEDS ORDERED: *HR* HYDROcodone/Acet 5/325 mg TABLET PO PRN (07:37)
[2017-11-22] MEDS ORDERED: 0.9 % Sodium Chloride 1,000 ML PRIME SCH (07:37)
[2017-11-22] MEDS ORDERED: Naloxone 0.4 MG/ML INJ IVP PRN (07:37)
[2017-11-22] MEDS ORDERED: 0.9 % Sodium Chloride 250 ML IVC PRN (07:37)
[2017-11-22] MEDS ORDERED: Ondansetron 4 MG/2 ML VIAL IVP PRN (07:37)
[2017-11-22] MEDS ORDERED: Acetaminophen 325 MG TABLET PO PRN (07:37)
[2017-11-22 07:42] LABS: Hemoglobin 11.8 g/dL (11.5-15.4); Mean Corpuscular HGB Conc 31.1 g/dL (31.6-35.5); Mean Corpuscular Hemoglobin 30.3 pg (28.0-33.3); Mean Corpuscular Volume 97.7 fL (83.0-100.0); Mean Platelet Volume 9.8 fL (9.4-12.4); Platelet Count 249 K/mcL (140-400); Red Blood Count 3.89 M/mcL (3.82-4.97)
[2017-11-22] MEDS ORDERED: Levofloxacin 500 MG/100 ML 500 MG/100 ML BAG IVPB SCH (09:00)
[2017-11-22] MEDS: Insulin LISPRO 300 UNITS/3 ML VIAL SQ SCH ×3 (09:20→18:58)
[2017-11-22] MEDS: Lactobacillus 1 EACH CAP.SPRINK PO SCH ×2 (09:24→20:14)
[2017-11-22] MEDS: Gabapentin 100 MG CAPSULE PO SCH ×3 (09:24→20:14)
[2017-11-22] MEDS: Aspirin Enteric Coated 81 MG Tablet PO SCH (09:24)
--- NOTE | 2017-11-22 11:21 | Nephrology Progress Note ---
<Galina Astudillo - Last Filed: 11/22/17 11:23> Date of Encounter: 11/22/17 Time of Encounter: 11:14 - Assessment and Plan (1) ESRD (end stage renal disease) on dialysis Status: Chronic Plan for HD tomorrow Continue renal diet Avoid nephrotoxins if possible (2) Toe ulcer Status: Acute per podiatry team Qualifiers: Laterality: right Non-pressure ulcer stage: unspecified non-pressure ulcer stage Qualified Code(s): L97.519 - Non-pressure chronic ulcer of other part of right foot with unspecified severity (3) Essential hypertension Status: Chronic per primary team Subjective Principal diagnosis: ESRD on dialysis, osteomyelitis Interval history: Patient seen and examined. states her birthday is Sunday and they have no intention of being here on her birthday Objective - Vital Signs Vital signs: Vital Signs Temp Pulse Resp BP Pulse Ox 11/22/17 07:06 98.2 F 76 17 153/72 95 11/22/17 03:43 97.8 F 66 18 144/69 96 11/21/17 23:54 97.7 F 67 18 128/67 97 11/21/17 19:33 98.4 F 79 18 145/70 96 11/21/17 18:50 97.5 F L 80 14 147/72 95 11/21/17 18:25 97.5 F L 82 14 155/74 95 11/21/17 18:10 97.5 F L 77 14 116/65 94 11/21/17 17:55 97.5 F L 74 14 114/66 94 11/21/17 17:40 97.5 F L 12 74 115/54 96 11/21/17 17:25 97.5 F L 76 12 101/51 94 11/21/17 17:10 97.5 F L 81 12 136/68 93 11/21/17 16:55 97.5 F L 79 12 127/68 93 11/21/17 11:50 97.8 F 79 16 173/68 98 11/21/17 11:35 97.4 F L 15 127/63 11/21/17 11:25 99/50 Intake and Output 11/21/17 11/22/17 11/22/17 23:59 07:59 15:59 Intake Total 0 / 0 0 / 0 75 / 75 Output Total 10 / 10 0 / 0 Balance - 0 / 0 75 / 75 Intake: Oral 0 / 0 0 / 0 75 / 75 Output: Urine 0 / 0 Estimated Blood Loss Other: Meal Breakfast Percent of Meal Consumed 10% # Urine Diapers 0 0 # Bowel Movement Diapers 0 0 Weight 71 kg Blood Glucose* 74 68 Patient Weight 11/22/17 23:59 Weight 71 kg - General Appearance General appearance: Present: cachectic, chronically ill, frail EENT: Present: ATNC, mucous membranes moist, hearing intact, vision intact Neck: Present: supple Cardiology: Present: no edema Integumentary: Present: warm and dry Neurologic: Present: confused Psychiatric: Present: cooperative - Lab 11/22/17 06:58 11/22/17 06:58 Most recent lab results Calcium 9.8 mg/dL (8.6-10.3) 11/22/17 06:58 Consult Discharge Plan - Plan Instructions: Chronic Hypertension (DC) Additional Instructions: Keep right heel floated off of bed, prevalon boot ordered. Minimal weight bearing or activity Heel touch only for transfers Please have post operative shoe in place during transfers for protection. Referrals: Rudi Avila MD [Primary Care Provider] - 11/30/17 9:45 am () Luther Tijerina DPM [Partnered Physician] - (in 1 week) Sylvia Dempsey CNP [Advanced Practice Nurse] - 12/05/17 () Prescriptions: HYDROcodone/Acet 5/325 mg [[place] 5-325 mg] 1 tab PO Q8HR PRN 3 Days #7 tablet PRN Reason: Moderate Pain Vancomycin [Vancocin] 1 each IVPB POSTDI #20 vial <[place] - Last Filed: 12/20/17 22:52> Date of Encounter: 11/22/17 - Assessment and Plan (1) ESRD (end stage renal disease) on dialysis Status: Chronic (2) Osteomyelitis Status: Acute Qualifiers: Osteomyelitis type: other acute Osteomyelitis location: foot Laterality: right Qualified Code(s): M86.171 - Other acute osteomyelitis, right ankle and foot (3) Essential hypertension Status: Chronic Objective - Lab 11/23/17 05:11 11/23/17 05:11 Most recent lab results Calcium 9.9 mg/dL (8.6-10.3) 11/23/17 05:11 - Attending Attestation I examined this patient and my medical decision-making was reviewed with the Resident Physician/WA[employer]ANT OPERATOR. I agree with the documented findings, disposition and treatment plan as described except to the extent set forth below. Pt seen and examined with at bedside. HD planned tomorrow if still hospitalized. Lytes WNL. Resume home meds. Hgb stable. On exam very frail and LLE AKA, R foot with dressing. Wound care per podiatry.
[2017-11-22] MEDS ORDERED: Acetaminophen/Butalbital/CaffeineTABLET PO PRN (11:59)
--- NOTE | 2017-11-22 12:03 | Infectious Disease Consult ---
Date of Encounter: 11/22/17 Time of Encounter: 11:54 Assessment and Plan (1) Osteomyelitis Status: Acute Assessment and plan: Location: Right great toe. Likely secondary to right great toe ulcer. Causative organism unclear. Cultures are pending. CT of the right foot showed findings concerning for osteopenia vs. osteomyelitis. Podiatry consulted. Status post right foot I & D with amputation of the right hallux 11/21/[address] Tijerina. Operative note reviewed. Pus noted intra-op, but all effected bone was removed. Inflammatory markers were not checked pre-op. No sepsis criteria. No blood cultures were obtained. Check ESR and CRP. Continue Vancomycin IV. Pharmacy to dose. Goal trough ~15. Continue Zosyn 3.375 grams IV Q12H. Discontinue Levaquin. Await cultures to finalize. Duration of treatment depends on the clinical picture. Wound care and activity restrictions per the Podiatry team. Monitor renal function and for drug toxicity and dose-adjust antibiotics. Qualifiers: Osteomyelitis type: other acute Osteomyelitis location: foot Laterality: right Qualified Code(s): M86.171 - Other acute osteomyelitis, right ankle and foot (2) Toe ulcer Status: Acute Assessment and plan: Location: Right great toe. Etiology unclear. Status post amputation of the right great toe 11/21/[address] Tijerina. Qualifiers: Laterality: right Non-pressure ulcer stage: unspecified non-pressure ulcer stage Qualified Code(s): L97.519 - Non-pressure chronic ulcer of other part of right foot with unspecified severity (3) Metabolic encephalopathy Status: Acute Assessment and plan: Etiology unclear, but the patient does not have sepsis-like picture: infectious vs. other. CT head negative. Continue to monitor closely. 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 Clinically, the stump looks great. (5) End stage renal disease on dialysis Status: Chronic Assessment and plan: Nephrology consulted and following. (6) Hypertension Status: Acute Assessment and plan: Patient continues to have intermittent hypertension. Further workup and management per the primary and nephrology teams. Qualifiers: Hypertension type: unspecified Qualified Code(s): I10 - Essential (primary ) hypertension Infectious Disease HPI - Data of Consult Patient: known to practice within the last 3 years Consult date: 11/22/17 Requesting Physician: Brina Hurst MD Primary Care Provider: Rudi Avila MD - Consult Narrative Reason for consult: Osteomyelitis History of present illness: Ms. Eng is a 71 year old female with a past medical history of end-stage renal disease on hemodialysis, diabetes, status post left BKA secondary to a nonhealing heel wound in January 2017, diabetic neuropathy, CAD, hypertension. The patient was admitted to the hospital 11/19/2017 for hypertension and osteomyelitis of the right foot. We are consulted November 22 for antibiotic recommendations for right foot osteomyelitis. Briefly, the patient's a 71-year-old female, well-known to infectious disease services were consulted on her case during a previous hospitalization, there was admitted to the hospital on November 19 for osteoarthritis of the left foot and hypertension. The patient presented to the emergency department with complaints of headache and hypertension. Upon arrival, she was afebrile hemodynamically stable except for being hypertensive. Laboratory studies revealed a normal white blood cell count and renal function consistent with her end-stage renal disease. She had a troponin that was negative. CT of the head is negative. Chest x-ray was negative. She had a right foot CT scan that showed plantar subluxation of the distal phalanx of the first toe in relation to the proximal phalanx with subtle irregularity and lucency involving the distal cortex of the distal proximal first phalanx which was seen to closely approximate the skin surface. It is also possible cortical irregularity of the base of the distal first phalanx concerning for osteopenia versus osteomyelitis given the soft tissue edema and patient history. There were also noted to be 2 tiny locules of gas seen along the dorsal aspect of the interphalangeal joint of the great toe. The patient was started on IV antibiotics and was admitted to the hospital for further evaluation. Since admission, the patient has remained afebrile and hemodynamically stable. Her white blood cell count has remained normal. Nephrology was consulted to assist with management of her dialysis. Podiatry was consulted and took the patient to the operating room on November 21 and did an I&D of the right foot with a beautician of the right hallux. The operative note was reviewed and noted to indicate they are worse pus at the surgical site. Intraoperative cultures are pending, but the Gram stain does show gram-positive cocci. The patient is currently on IV vancomycin, cefepime, and Levaquin. We have been asked to evaluate and make further recommendations. During my exam today, the patient appears somewhat confused and lethargic. Her mental status somewhat limits her ability to give me any details regarding the events leading up to her hospitalization. Per her who is at the bedside the patient was having migraine headaches and hypertension are not sweaty called the squad. He denies any known fevers or chills or rigors. He states the patient never complained of chest pain or shortness of breath or cough. The patient denies any nausea or vomiting or diarrhea. She denies abdominal pain. She voids 1-2 times per day and denies any urinary complaints. She denies pain at this time, but states that overall she just does not feel very well. The patient lives at home with her . She denies any tobacco, alcohol, or illicit drug use. CC: Brina Hurst MD Past Med Surg Social Fam HX - Past Medical History Attestation: Yes The following information was validated with the patient. Source: patient, old records reviewed, obtained from family, nursing notes reviewed Medical history: coronary artery disease, diabetes, dialysis, hypertension, renal disease, other Psychiatric history: anxiety, depression - Past Surgical History Surgical History: carotid endarterectomy, hysterectomy, orthopedic, other, thyroidectomy, other (amputation left leg) - Social History Smoking Status: Never smoker Smokeless Tobacco Status: No Alcohol use: none Drug use: none Occupational status: unemployed Current living situation: Home, With Family Activity Level: Uses cane/walker Recent Out of Country Travel Within the Last 8 Weeks: No Exposure or Possible Exposure to Illness During Travel: No - Family History Mother Adopted: No Family Member Ethnicity: Non- Living Status: Hx Family Cardiac Disorders: No Hx Family Respiratory Disorders: Yes Hx Family Cancer: Yes Hx Family GI Disorders: No Hx Family Endocrine Disorder: No Hx Family Neuromuscular Disorders: No Hx Family Neurologic Disorders: No Hx Family HEENT Disorders: No Hx Family Autoimmune Disorders: No Father Adopted: No Family Member Ethnicity: Non- Living Status: Hx Family Cardiac Disorders: Yes Hx Family Respiratory Disorders: Yes Hx Family Cancer: No Hx Family GI Disorders: No Hx Family Endocrine Disorder: Yes Hx Family Neuromuscular Disorders: No Hx Family Neurologic Disorders: Yes Hx Family HEENT Disorders: No Hx Family Autoimmune Disorders: No Infectious Disease-CN:Meds Lidocaine/Prilocaine [Emla] 1 appl TP ONCE PRN 10/09/16 [History] Clopidogrel [Plavix] 75 mg PO DAILY tablet 10/16/16 [Rx] DiphenhydraMINE [Benadryl] 25 mg PO HS PRN #10 02/05/17 [Rx] Citalopram [CeleXA] 20 mg PO DAILY 03/30/17 [History] Metoprolol [Lopressor] 25 mg PO BID 03/30/17 [History] Aspirin Enteric Coated [Aspirin EC] 81 mg PO DAILY #30 tablet. 06/11/17 [Rx] Multivitamin [Multivitamins] 1 cap PO DAILY 09/03/17 [History] Acetaminophen [Tylenol] 650 mg PO Q6HR PRN #30 tablet 09/10/17 [Rx] Ondansetron HCl [Zofran] 4 mg PO TID PRN 09/20/17 [History] Gabapentin [Neurontin] 100 mg PO TID #15 capsule 09/21/17 [Rx] 3 Allergy/AdvReac Type Severity Reaction Status Date / Time Penicillins Allergy Hives Verified 11/19/17 18:23 All systems: reviewed and no additional remarkable complaints except as stated Exam - Constitutional Vitals: Temp Pulse Resp BP Pulse Ox 98.3 F 71 18 130/65 94 11/22/17 11:37 11/22/17 11:37 11/22/17 11:37 11/22/17 11:37 11/22/17 11:37 General appearance: average body habitus, cooperative, no acute distress - Head Head exam: Present: atraumatic, normal inspection, normocephalic - Eye Eye exam: Present: EOMI, normal appearance, PERRL Pupils: Present: normal accommodation - ENT ENT exam: Present: mucous membranes moist - Neck Neck exam: Present: normal inspection - Respiratory Respiratory exam: Present: CTAB. Absent: rales, respiratory distress, rhonchi, wheezes - Cardiovascular Cardiovascular exam: Present: RRR, +S1, +S2 - GI/Abdominal GI/Abdominal exam: Present: normal bowel sounds, soft. Absent: distended, tenderness - Extremities Exam Extremities exam: Absent: joint swelling, pedal edema, tenderness Additional comments: Left AKA stump without erythema, warmth, or edema. Right foot dressing C/D/I. AV fistula noted to the RUE, +/+. - Neurological Exam Neurological exam: Present: alert, no focal deficits. Absent: oriented X3 ( Oriented to place only.), facial droop, speech deficit - Skin Skin exam: Present: dry, intact, normal color, warm Infectious Disease CN: Results - Labs CBC & Chem 7: 11/22/17 06:58 11/22/17 06:58 Cultures: Cultures 11/21/17 16:45 Surgical Biopsy Culture - Preliminary Right Great Toe Serology: Serology 11/20/17 Range/Units 07:02 Hep Bs Antigen Nonreactive (Nonreactive) Hep Bs Antibody 38.19 mIU/mL Consult Discharge Plan - Plan Referrals: Rudi Avila MD [Primary Care Provider] - (most likely go to rehab) - Attending Attestation I examined this patient and my medical decision-making was reviewed with the Resident Physician. I agree with the documented findings, disposition and treatment plan as described except to the extent set forth below. This is an addendum to original report dictated by Sylvia Dempsey CNP, please refer to Faustino ardon for full detail. Briefly patient is 71-year-old woman who is known to or service and was treated by us previously for osteomyelitis came in with hypertensive urgency and altered mental status. Patient is end- stage renal disease on hemodialysis Sunday and Sunday. Patient was admitted for evaluation. During the hospital stay patient was noted to have osteomyelitis on the CT of the right lower extremity. Patient was taken to surgery where she had I&D done and Intra-Op cultures sent. We were consulted to evaluate the patient and make antibiotic recommendations. At this point agree with broad-spectrum antibiotics including vancomycin and Zosyn. DC levofloxacin. Once cultures finalize we will tailor antibiotics to the culture results. Dose adjust antibiotics based on creatinine clearance Goal vancomycin around 15 Patient had an amputation of the left lower extremity because of venous insufficiency I am also concerned that the patient is confused and she tells me she had penicillin allergy when she was 18 and she thinks that she is turning 18 on Sunday. Patient was a little lethargic awakes but sclerosis sleep any have to wake her up during conversation. is at bedside and she tells me she might be joking but I think she does have some encephalopathy and she is confused. We will defer that to the primary team to evaluate it some more. Otherwise no more changes we will continue to monitor labs and for drug toxicity.
--- NOTE | 2017-11-22 13:43 | Podiatry Progress Note ---
Date of Encounter: 11/22/17 Time of Encounter: 12:15 - Assessment and Plan (1) Diabetes mellitus Current Visit: Yes Status: Chronic Qualifiers: Diabetes mellitus type: type 2 Diabetes mellitus alf insulin use: with alf use Diabetes mellitus complication status: with kidney complications Diabetes mellitus complication detail: with chronic kidney disease Chronic kidney disease stage: on chronic dialysis Qualified Code(s) : E11.22 - Type 2 diabetes mellitus with diabetic chronic kidney disease; N18.6 - End stage renal disease; N18.6 - End stage renal disease; N18.6 - End stage renal disease; N18.6 - End stage renal disease; Z79.4 - snf (current) use of insulin; Z79.4 - snf (current) use of insulin; Z79.4 - moth exterminator ( current) use of insulin; Z79.4 - snf (current) use of insulin; Z99.2 - Dependence on renal dialysis; Z99.2 - Dependence on renal dialysis; Z99.2 - Dependence on renal dialysis; Z99.2 - Dependence on renal dialysis (2) End stage renal disease on dialysis Current Visit: No Status: Chronic (3) Toe ulcer Current Visit: Yes Status: Acute S/p incision and drainage right foot, amputation right hallux by Dr. Tijerina on . Intraop cultures obtained and pending. Preliminary-GPC WBC: 5.7 Temp: 98.3 Incision line assessed and healing uneventfully. Plan: Dressing changed at bedside. Will continue to monitor patient closely. Antibiotic therapy per Infectious Disease recommendations. Keep right heel floated off of bed, prevalon boot ordered. Qualifiers: Laterality: right Non-pressure ulcer stage: unspecified non-pressure ulcer stage Qualified Code(s): L97.519 - Non-pressure chronic ulcer of other part of right foot with unspecified severity Subjective Principal diagnosis: ESRD on dialysis, osteomyelitis Interval history: Patient is lying in bed with spouse and daughter at bedside. Patient is s/p incision and drainage right foot, amputation right hallux by Dr. Tijerina on . Patient has a dressing dry and intact to the right foot. Patient denies any pain to the right foot. Patient states she has a headache. Objective - Vital Signs Vital Signs: Vital Signs Temp Pulse Resp BP Pulse Ox 11/22/17 11:37 98.3 F 71 18 130/65 94 11/22/17 07:06 98.2 F 76 17 153/72 95 11/22/17 03:43 97.8 F 66 18 144/69 96 11/21/17 23:54 97.7 F 67 18 128/67 97 11/21/17 19:33 98.4 F 79 18 145/70 96 11/21/17 18:50 97.5 F L 80 14 147/72 95 11/21/17 18:25 97.5 F L 82 14 155/74 95 11/21/17 18:10 97.5 F L 77 14 116/65 94 11/21/17 17:55 97.5 F L 74 14 114/66 94 11/21/17 17:40 97.5 F L 12 74 115/54 96 11/21/17 17:25 97.5 F L 76 12 101/51 94 11/21/17 17:10 97.5 F L 81 12 136/68 93 11/21/17 16:55 97.5 F L 79 12 127/68 93 Intake and Output 11/21/17 11/22/17 11/22/17 23:59 07:59 15:59 Intake Total 0 / 0 0 / 0 75 / 75 Output Total 10 / 10 0 / 0 Balance -10 / -10 0 / 0 75 / 75 Intake: Oral 0 / 0 0 / 0 75 / 75 Output: Urine 0 / 0 Estimated Blood Loss 10 / 10 Other: Meal Breakfast Percent of Meal Consumed 10% # Urine Diapers 0 0 # Bowel Movements 0 # Bowel Movement Diapers 0 0 Weight 71 kg Blood Glucose* 74 68 130 Patient Weight 11/22/17 23:59 Weight 71 kg - Exam Exam: General appearance: alert awake oriented X 3. Calm and pleasant, no acute distress.. Vascular: Pedal pulses +2/4 DP/PT , No evidence of cyanosis, pallor or rubor, Edema graded at 1+/4, Skin Tempature warm, No calf pain with manual compression. capillary refill time is immediate to digits. Neurologic: Sensation intact with light touch to foot. . Postop Exam: S/P Sutures intact to incision line, no signs of dehiscence, dried blood observed to incision line. No open area, no active drainage, no odor, no streaking. Light periwound erythema, minimal edema. - Lab Result Diagrams: 11/22/17 06:58 11/22/17 06:58 Labs: Abnormal lab results MCHC 31.1 g/dL (31.6-35.5) L 11/22/17 06:58 RDW 15.0 % (11.5-14.5) H 11/22/17 06:58 Creatinine 3.88 mg/dL (0.60-1.20) H 11/22/17 06:58 Est GFR ( Amer) 14 (> 60) L 11/22/17 06:58 Est GFR (Non-Af Amer) 11 (> 60) L 11/22/17 06:58 BUN/Creatinine Ratio 5 (6-26) L 11/22/17 06:58 Microbiology, Last 48 Hours 11/21/17 16:45 Surgical Biopsy Culture - Preliminary Right Great Toe Consult Discharge Plan - Plan Referrals: Rudi Avila MD [Primary Care Provider] - (most likely go to rehab)
[2017-11-22] MEDS ORDERED: Cefepime HCl 1,000 MG in Water for inj. (sterile) 20 ML 10 ML IVPB SCH (14:00)
--- NOTE | 2017-11-22 15:50 | Internal Med Progress Note ---
Date of Encounter: 11/22/17 Time of Encounter: 15:48 - Assessment and plan (1) Toe ulcer Current Visit: Yes Status: Acute Assessment and plan: With underlying osteomyelitis involving the right great toe. Status post incision and drainage of right foot and amputation of right hallux. Postop day 1. Continue current antibiotics. Infectious disease consulted for further antibiotic recommendations. Awaiting culture results. Moderate risk for complications. 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 Continue metoprolol. (6) DVT prophylaxis Current Visit: Yes Status: Acute Assessment and plan: With subcutaneous heparin (7) Diabetes mellitus Current Visit: Yes Status: Chronic Assessment and plan: Blood sugars are well controlled. Qualifiers: Diabetes mellitus type: type 2 Diabetes mellitus shelter insulin use: with shelter use Diabetes mellitus complication status: with kidney complications Diabetes mellitus complication detail: with chronic kidney disease Chronic kidney disease stage: on chronic dialysis Qualified Code(s) : E11.22 - Type 2 diabetes mellitus with diabetic chronic kidney disease; N18.6 - End stage renal disease; Z99.2 - Dependence on renal dialysis; Z99.2 - Dependence on renal dialysis; Z99.2 - Dependence on renal dialysis; N18.6 - End stage renal disease; N18.6 - End stage renal disease; N18.6 - End stage renal disease; Z79.4 - USP (current) use of insulin; Z79.4 - USP (current ) use of insulin; Z79.4 - USP (current) use of insulin; Z79.4 - plant associate (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 We will add Fioricet. Qualifiers: Headache type: tension-type Headache chronicity pattern: acute headache Qualified Code(s): G44.201 - Tension-type headache, unspecified, intractable - Time Spent With Patient Total time spent is greater than 50% in coordination of care (as documented) at patient's floor/unit and/or counseling patient: - Subjective Interval history: Patient complains of continued headache. Right foot pain improved. Was also nauseated and had an episode of emesis this morning. Underwent surgery yesterday with no postsurgical issues. - Constitutional Vitals: Temp Pulse Resp BP Pulse Ox 98.2 F 68 18 143/75 96 11/22/17 15:35 11/22/17 15:35 11/22/17 15:35 11/22/17 15:35 11/22/17 15:35 General appearance: Present: cooperative, A&O X 3, no acute distress, answers questions appropriately - Eye Eye exam: Present: EOMI, PERRL, conjuntiva pink, sclera anicteric - Neck Neck exam general surgery: Present: supple, trachea midline. Absent: lymphadenopathy - Respiratory Respiratory exam: Present: CTAB. Absent: accessory muscle use, rales, rhonchi, wheezes - Cardiovascular Cardiovascular exam: Present: RRR, +S1, +S2. Absent: diastolic murmur, gallop, rubs, systolic murmur - GI/Abdominal GI/Abdominal exam: Present: normal bowel sounds, soft, no peritoneal signs. Absent: distended, tenderness - Extremities Exam Extremities exam: Present: warm, radial pulses palpable and symmetrical. Absent : calf tenderness, cyanotic, pedal edema Additional comments: Right foot bandaged. Status post amputation of right great toe - Neurological Exam Neurological exam: Present: alert, oriented X3, no focal deficits, strengths equal and symetr throughout. Absent: facial droop, speech deficit - Skin Skin exam: Present: dry, intact Internal Medicine: Result - Labs CBC & Chem 7: 11/22/17 06:58 11/22/17 06:58 Labs: Short CBC 11/22/17 Range/Units 06:58 WBC 5.7 (4.3-11.1) K/mcL Hgb 11.8 (11.5-15.4) g/dL Hct 38.0 (35.3-44.9) % Plt Count 249 (140-400) K/mcL BMP 11/22/17 06:58 Sodium 140 Potassium 4.2 Chloride 104 Carbon Dioxide 29 BUN 20 Creatinine 3.88 H Glucose 77 Calcium 9.8 - Impressions Impressions Foot X-Ray 11/21/17 16:43 IMPRESSION: Postoperative changes recent great toe amputation. No acute complication. Remote avulsion fracture from the dorsal calcaneus. D/ / 11/22/2017 06:49:36 Matias Vasquez MD / radha Interpreting Provider: Matias Vasquez MD Consult Discharge Plan - Plan Referrals: Rudi Avlia MD [Primary Care Provider] - (most likely go to rehab)
[2017-11-22] MEDS ORDERED: Ketorolac 30 MG/ML VIAL IVP ONE (19:24)
[2017-11-22] MEDS ORDERED: Insulin LISPRO 300 UNITS/3 ML VIAL SQ SCH (21:00)
[2017-11-22 23:16] LABS: Bilirubin,Urine Negative (Negative); Blood,Urine Large (Negative); Clarity,Urine Cloudy (Clear); Color,Urine Yellow (Yellow); Glucose,Urine (UA) 100 mg/dL (Normal); Ketones,Urine Negative (Negative); Leukocyte Esterase,Urine Large (Negative); Nitrite,Urine Negative (Negative); PH,Urine 7.5 pH Units (5.0-8.0); Protein,Urine >=300 mg/dL (Neg-Trace); Specific Gravity,Urine 1.018 (1.010-1.025); Urobilinogen,Urine Normal (Normal)
[2017-11-22 23:19] LABS: Bacteria,Urine None Seen per hpf (None-Few); Hyaline Casts,Urine None Seen per lpf (None-Few); Squamous Epithelial Cell,Urine Many per lpf (None-Few); WBC,Urine TNTC per hpf (0-3)
[2017-11-23] MEDS: *HR* Heparin 5,000 UNIT/ML VIAL SQ SCH (05:13)
[2017-11-23 05:50] LABS: Hematocrit 37.4 % (35.3-44.9); Hemoglobin 11.7 g/dL (11.5-15.4); Mean Corpuscular HGB Conc 31.3 g/dL (31.6-35.5); Mean Corpuscular Hemoglobin 30.6 pg (28.0-33.3); Mean Corpuscular Volume 97.9 fL (83.0-100.0); Mean Platelet Volume 9.7 fL (9.4-12.4); Platelet Count 225 K/mcL (140-400); Red Blood Count 3.82 M/mcL (3.82-4.97); Red Cell Distribution Width 14.7 % (11.5-14.5)
[2017-11-23 06:02] LABS: Calcium 9.9 mg/dL (8.6-10.3); Potassium 4.1 mEq/L (3.5-5.1)
[2017-11-23] MEDS ORDERED: 0.9 % Sodium Chloride 2,000 ML ONE (07:11)
[2017-11-23] MEDS ORDERED: 0.9 % Sodium Chloride 250 ML IVC PRN (07:51)
[2017-11-23] MEDS: Insulin LISPRO 300 UNITS/3 ML VIAL SQ SCH ×2 (07:59→13:58)
[2017-11-23] MEDS ORDERED: 0.9 % Sodium Chloride 1,000 ML PRIME SCH (08:00)
[2017-11-23] MEDS: Gabapentin 100 MG CAPSULE PO SCH (08:02)
[2017-11-23] MEDS: Aspirin Enteric Coated 81 MG Tablet PO SCH (08:02)
[2017-11-23] MEDS: Lactobacillus 1 EACH CAP.SPRINK PO SCH (08:02)
--- NOTE | 2017-11-23 10:18 | Podiatry Progress Note ---
Date of Encounter: 11/23/17 Time of Encounter: 09:30 - Assessment and Plan (1) Osteomyelitis Current Visit: Yes Status: Acute S/p incision and drainage right foot, amputation right hallux by Dr. Tijerina on . Intraop cultures obtained preliminary MRSA ID Following and appreciated - Patient currently on Zosyn and Vancomycin WBC: 5.1 Temp: 97.5 Incision line assessed and healing uneventfully. Plan: Dressing changed at bedside. Will continue to monitor patient closely. Will follow patient while inpatient, will need follow up appointment in office with 1 week after discharge Antibiotic therapy per Infectious Disease recommendations. Keep right heel floated off of bed, prevalon boot ordered. Minimal weight bearing or activity Heel touch only for transfers Please have post operative shoe in place during transfers for protection. CT of head was obtained this morning d/t patient complaints of headache and arm jerking, no report available at this time Qualifiers: Osteomyelitis type: other acute Osteomyelitis location: foot Laterality: right Qualified Code(s): M86.171 - Other acute osteomyelitis, right ankle and foot (2) Toe ulcer Current Visit: Yes Status: Acute Qualifiers: Laterality: right Non-pressure ulcer stage: unspecified non-pressure ulcer stage Qualified Code(s): L97.519 - Non-pressure chronic ulcer of other part of right foot with unspecified severity (3) Diabetes mellitus Current Visit: Yes Status: Chronic Qualifiers: Diabetes mellitus type: type 2 Diabetes mellitus custodial insulin use: with custodial use Diabetes mellitus complication status: with kidney complications Diabetes mellitus complication detail: with chronic kidney disease Chronic kidney disease stage: on chronic dialysis Qualified Code(s) : E11.22 - Type 2 diabetes mellitus with diabetic chronic kidney disease; N18.6 - End stage renal disease; Z99.2 - Dependence on renal dialysis; Z99.2 - Dependence on renal dialysis; Z99.2 - Dependence on renal dialysis; N18.6 - End stage renal disease; N18.6 - End stage renal disease; N18.6 - End stage renal disease; Z79.4 - senior living (current) use of insulin; Z79.4 - senior living (current ) use of insulin; Z79.4 - intermodal dispatcher (current) use of insulin; Z79.4 - intermodal dispatcher (current) use of insulin; Z99.2 - Dependence on renal dialysis Subjective Principal diagnosis: ESRD on dialysis, osteomyelitis Interval history: Patient is lying in bed in dialysis on arrival. Patient appears very tired. Drifts to sleep often during conversation. Patient underwent CT this AM due to continued complaints of head ache and reported right arm jerking. Patient states she is just worn out. Patient is s/p incision and drainage right foot, amputation right hallux by Dr. Tijerina on 11/21/17. Patient has a dressing dry and intact to the right foot. Patient denies any pain to the right foot. Patient states she has a headache. Objective - Vital Signs Vital Signs: Vital Signs Temp Pulse Resp BP Pulse Ox 11/23/17 07:38 97.5 F L 62 18 136/69 97 11/23/17 04:28 97.4 F L 57 18 112/62 95 11/23/17 00:31 97.6 F 58 18 96/55 95 11/22/17 20:16 97.9 F 67 18 124/73 95 11/22/17 20:14 95 11/22/17 15:35 98.2 F 68 18 143/75 96 11/22/17 11:37 98.3 F 71 18 130/65 94 Intake and Output 11/22/17 11/23/17 11/23/17 23:59 07:59 15:59 Intake Total 0 / 0 Balance 0 / 0 Intake: Oral 0 / 0 Other: Meal Breakfast Percent of Meal Consumed 0% Weight 69 kg Blood Glucose* 135 75 Patient Weight 11/23/17 23:59 Weight 69 kg - Exam Exam: Podiatry General Exam: General appearance: alert awake oriented X 3. Calm and pleasant, no acute distress.. Vascular: Pedal pulses +2/4 DP/PT , No evidence of cyanosis, pallor or rubor, Edema graded at 1+/4, Skin Temperature warm, No calf pain with manual compression. capillary refill time is immediate to digits. Neurologic: Sensation intact with light touch to foot. . Postop Exam: S/P ncision and drainage right foot, amputation right hallux by Dr. Tijerina on 11/21/17. Sutures intact to incision line, no signs of dehiscence. No open area, no drainage, no odor, mild erythema surrounding surgical site, no streaking. Minimal edema. No appearance of infection or surgical site compromise at this time. We will continue to monitor. - Lab Result Diagrams: 11/23/17 05:11 11/23/17 05:11 Labs: Abnormal lab results MCHC 31.3 g/dL (31.6-35.5) L 11/23/17 05:11 RDW 14.7 % (11.5-14.5) H 11/23/17 05:11 BUN 33 mg/dL (8-23) H 11/23/17 05:11 Creatinine 5.34 mg/dL (0.60-1.20) H 11/23/17 05:11 Est GFR ( Amer) 10 (> 60) L 11/23/17 05:11 Est GFR (Non-Af Amer) 8 (> 60) L 11/23/17 05:11 POC Glucose 135 mg/dL (70-99) H 11/22/17 20:18 Urine Clarity Cloudy (Clear) A 11/22/17 23:04 Urine Protein >=300 mg/dL (Neg-Trace) H 11/22/17 23:04 Urine Glucose (UA) 100 mg/dL (Normal) H 11/22/17 23:04 Urine Blood Large (Negative) H 11/22/17 23:04 Ur Leukocyte Esterase Large (Negative) H 11/22/17 23:04 Urine Microscopic RBC 5-15 per hpf (0-3) H 11/22/17 23:04 Urine Microscopic WBC TNTC per hpf (0-3) H 11/22/17 23:04 Ur Squamous Epith Cells Many per lpf (None-Few) H 11/22/17 23:04 Microbiology, Last 48 Hours 11/21/17 16:45 Surgical Biopsy Culture - Preliminary Right Great Toe Staphylococcus aureus 11/21/17 16:45 Wound Culture - Preliminary Right Great Toe Staphylococcus aureus Consult Discharge Plan - Plan Referrals: Rudi Avila MD [Primary Care Provider] - (most likely go to rehab)
--- NOTE | 2017-11-23 10:27 | Infectious Disease Progress No ---
Date of Encounter: 11/23/17 Time of Encounter: 10:25 - Assessment and Plan (1) Osteomyelitis Current Visit: Yes Status: Acute Location: Right great toe. Likely secondary to right great toe ulcer. Causative organism MRSA. CT of the right foot showed findings concerning for osteopenia vs. osteomyelitis. Podiatry consulted. Status post right foot I & D with amputation of the right hallux 11/21/[address] Tijerina. Operative note reviewed. Pus noted intra-op, but all effected bone was removed. Inflammatory markers were not checked pre-op. No sepsis criteria. No blood cultures were obtained. Check ESR and CRP. Continue Vancomycin IV. Pharmacy to dose. Goal trough ~15. Discontinue Zosyn. Discontinue Levaquin. Duration of treatment depends on the clinical picture, but likely 4-6 weeks. Wound care and activity restrictions per the Podiatry team. Monitor renal function and for drug toxicity and dose-adjust antibiotics. We will be able to give the Vancomycin with HD, so the patient will not require additional IV access. Qualifiers: Osteomyelitis type: other acute Osteomyelitis location: foot Laterality: right Qualified Code(s): M86.171 - Other acute osteomyelitis, right ankle and foot (2) Toe ulcer Current Visit: Yes Status: Acute Location: Right great toe. Etiology unclear. Status post amputation of the right great toe 11/21/[address] Tijerina. Qualifiers: Laterality: right Non-pressure ulcer stage: unspecified non-pressure ulcer stage Qualified Code(s): L97.519 - Non-pressure chronic ulcer of other part of right foot with unspecified severity (3) Metabolic encephalopathy Current Visit: No Status: Acute Etiology unclear, but the patient does not have sepsis-like picture: infectious vs. other. CT head negative. Repeat CT head done this morning is pending. Consider neuro to evaluate. Continue to monitor closely. (4) Status post below knee amputation of left lower extremity Current Visit: No Status: Acute Status post left BKA 01/2017 due to non-healing left heel wound/osteomyelitis. Clinically, the stump looks great. (5) End stage renal disease on dialysis Current Visit: No Status: Chronic Nephrology consulted and following. (6) Hypertension Current Visit: Yes Status: Acute Patient continues to have intermittent hypertension. Further workup and management per the primary and nephrology teams. Qualifiers: Hypertension type: unspecified Qualified Code(s): I10 - Essential (primary ) hypertension - Subjective Interval history: Patient seen and examined in the HD unit. No acute events noted overnight. Patient resting quietly with eyes closed. Patient non-verbal and I am not able to glean any information from her at this time. Per the [place]'s nurse, the patient was communicating verbally with her. The patient does follow some commands. She had a CT of her head this morning that is pending. He did receive a [place] prior to coming to dialysis for headache. Infect Dis PN-Objective Data - Labs CBC & Chem 7: 11/23/17 05:11 11/23/17 05:11 Labs: Laboratory Results - last 24 hr 11/21/17 11/21/17 11/22/17 16:59 19:36 05:58 WBC RBC Hgb Hct MCV MCH MCHC RDW Plt Count MPV Sodium Potassium Chloride Carbon Dioxide BUN Creatinine Est GFR ( Amer) Est GFR (Non-Af Amer) BUN/Creatinine Ratio Glucose POC Glucose 90 74 65 L Calculated Osmolality Calcium Urine Color Urine Clarity Urine pH Ur Specific [place] Urine Protein Urine Glucose (UA) Urine Ketones Urine Blood Urine Nitrite Urine Bilirubin Urine Urobilinogen Ur Leukocyte Esterase Urine Microscopic RBC Urine Microscopic WBC Ur Squamous Epith Cells Urine Bacteria Hyaline Casts Ur Culture Indicated? Random Vancomycin 11/22/17 11/22/17 11/22/17 08:00 11:30 15:30 WBC RBC Hgb Hct MCV MCH MCHC RDW Plt Count MPV Sodium Potassium Chloride Carbon Dioxide BUN Creatinine Est GFR ( Amer) Est GFR (Non-Af Amer) BUN/Creatinine Ratio Glucose POC Glucose 68 L 130 H 109 H Calculated Osmolality Calcium Urine Color Urine Clarity Urine pH Ur Specific [place] Urine Protein Urine Glucose (UA) Urine Ketones Urine Blood Urine Nitrite Urine Bilirubin Urine Urobilinogen Ur Leukocyte Esterase Urine Microscopic RBC Urine Microscopic WBC Ur Squamous Epith Cells Urine Bacteria Hyaline Casts Ur Culture Indicated? Random Vancomycin 11/22/17 11/22/17 11/23/17 20:18 23:04 05:11 WBC RBC Hgb Hct MCV MCH MCHC RDW Plt Count MPV Sodium Potassium Chloride Carbon Dioxide BUN Creatinine Est GFR ( Amer) Est GFR (Non-Af Amer) BUN/Creatinine Ratio Glucose POC Glucose 135 H Calculated Osmolality Calcium Urine Color Yellow Urine Clarity Cloudy A Urine pH 7.5 Ur Specific [place] 1.018 Urine Protein >=300 H Urine Glucose (UA) 100 H Urine Ketones Negative Urine Blood Large H Urine Nitrite Negative Urine Bilirubin Negative Urine Urobilinogen Normal Ur Leukocyte Esterase Large H Urine Microscopic RBC 5-15 H Urine Microscopic WBC TNTC H Ur Squamous Epith Cells Many H Urine Bacteria None Seen Hyaline Casts None Seen Ur Culture Indicated? NO. Random Vancomycin 30 11/23/17 11/23/17 05:11 05:11 WBC 5.1 RBC 3.82 Hgb 11.7 Hct 37.4 MCV 97.9 MCH 30.6 MCHC 31.3 L RDW 14.7 H Plt Count 225 MPV 9.7 Sodium 137 Potassium 4.1 Chloride 99 Carbon Dioxide 28 BUN 33 H Creatinine 5.34 H Est GFR ( Amer) 10 L Est GFR (Non-Af Amer) 8 L BUN/Creatinine Ratio 6 Glucose 79 POC Glucose Calculated Osmolality 290 Calcium 9.9 Urine Color Urine Clarity Urine pH Ur Specific [place] Urine Protein Urine Glucose (UA) Urine Ketones Urine Blood Urine Nitrite Urine Bilirubin Urine Urobilinogen Ur Leukocyte Esterase Urine Microscopic RBC Urine Microscopic WBC Ur Squamous Epith Cells Urine Bacteria Hyaline Casts Ur Culture Indicated? Random Vancomycin Cultures: Cultures 11/21/17 16:45 Surgical Biopsy Culture - Preliminary Right Great Toe Staphylococcus aureus 11/21/17 16:45 Wound Culture - Preliminary Right Great Toe Staphylococcus aureus Serology 11/22/17 11/20/17 Range/Units 23:04 07:02 Urine Color Yellow (Yellow) Urine Clarity Cloudy A (Clear) Urine pH 7.5 (5.0-8.0) pH Units Ur Specific [place] 1.018 (1.010-1.025) Urine Protein >=300 H (Neg-Trace) mg/dL Urine Glucose (UA) 100 H (Normal) mg/dL Urine Ketones Negative (Negative) mg/dL Urine Blood Large H (Negative) Urine Nitrite Negative (Negative) Urine Bilirubin Negative (Negative) Urine Urobilinogen Normal (Normal) mg/dL Ur Leukocyte Esterase Large H (Negative) Urine Microscopic RBC 5-15 H (0-3) per hpf Urine Microscopic WBC TNTC H (0-3) per hpf Ur Squamous Epith Cells Many H (None-Few) per lpf Urine Bacteria None Seen (None-Few) per hpf Hyaline Casts None Seen (None-Few) per lpf Ur Culture Indicated? NO. (NO) Hep Bs Antigen Nonreactive (Nonreactive) Hep Bs Antibody 38.19 mIU/mL - Impressions Impressions Foot X-Ray 11/21/17 16:43 IMPRESSION: Postoperative changes recent great toe amputation. No acute complication. Remote avulsion fracture from the dorsal calcaneus. D/ / 11/22/2017 06:49:36 Matias Vasquez MD / radha Interpreting Provider: Matias Vasquez MD Exam - Constitutional Vitals: Temp Pulse Resp BP Pulse Ox 97.5 F L 62 18 136/69 97 11/23/17 07:38 11/23/17 07:38 11/23/17 07:38 11/23/17 07:38 11/23/17 07:38 General appearance: average body habitus, cooperative, no acute distress - Head Head exam: Present: atraumatic, normal inspection, normocephalic - Eye Eye exam: Present: EOMI, normal appearance, PERRL Pupils: Present: normal accommodation - ENT ENT exam: Present: mucous membranes dry - Neck Neck exam: Present: normal inspection. Absent: meningismus, tenderness - Respiratory Respiratory exam: Present: CTAB. Absent: rales, respiratory distress, rhonchi, wheezes - Cardiovascular Cardiovascular exam: Present: RRR, +S1, +S2 - GI/Abdominal GI/Abdominal exam: Present: normal bowel sounds, soft. Absent: distended, tenderness - Extremities Exam Extremities exam: Absent: joint swelling, pedal edema, tenderness Additional comments: Right foot dressing C/D/I. Left BKA stump without redness, warmth, or open sores. AV fistula noted to the RUE, currently accessed for HD. - Neurological Exam Neurological exam: Present: altered (Eyes open, does not answer questions. Follows some commands.). Absent: facial droop - Skin Skin exam: Present: dry, intact, normal color, warm Consult Discharge Plan - Plan Instructions: Chronic Hypertension (DC) Referrals: Rudi Avila MD [Primary Care Provider] - () Prescriptions: HYDROcodone/Acet 5/325 mg [[place] 5-325 mg] 1 tab PO Q8HR PRN 3 Days #7 tablet PRN Reason: Moderate Pain Vancomycin [Vancocin] 1 each IVPB POSTDI #20 vial - Attending Attestation I examined this patient and my medical decision-making was reviewed with the Resident Physician. I agree with the documented findings, disposition and treatment plan as described except to the extent set forth below.
--- NOTE | 2017-11-23 12:34 | Nephrology Progress Note ---
Date of Encounter: 11/23/17 Time of Encounter: 12:32 - Assessment and Plan (1) ESRD (end stage renal disease) on dialysis Current Visit: Yes Status: Chronic HD MWF. Renal vitamins. Renal dose medications. Renal diet. Additional dialysis and ultrafiltration as needed. Patient was seen on dialysis. (2) Essential hypertension Current Visit: Yes Status: Chronic Blood pressure control. Titrate antihypertensive medication as needed. Subjective Principal diagnosis: ESRD on dialysis, osteomyelitis Interval history: Ms. Eng was seen while on dialysis. She was asleep. No new reports. Objective - Vital Signs Vital signs: Vital Signs Temp Pulse Resp BP Pulse Ox 11/23/17 12:10 98/50 11/23/17 11:55 99/42 11/23/17 11:40 110/48 11/23/17 11:25 103/44 11/23/17 11:10 109/47 11/23/17 10:55 100/52 11/23/17 10:40 102/47 11/23/17 10:25 94/44 11/23/17 10:10 112/57 11/23/17 09:55 108/54 11/23/17 09:40 93/54 11/23/17 09:25 97.3 F L 18 109/53 11/23/17 07:38 97.5 F L 62 18 136/69 97 11/23/17 04:28 97.4 F L 57 18 112/62 95 11/23/17 00:31 97.6 F 58 18 96/55 95 11/22/17 20:16 97.9 F 67 18 124/73 95 11/22/17 20:14 95 11/22/17 15:35 98.2 F 68 18 143/75 96 Intake and Output 11/22/17 11/23/17 11/23/17 23:59 07:59 15:59 Intake Total 600 / 600 Balance 600 / 600 Intake: Oral 0 / 0 Intake, Rinseback and Flushes 600 / 600 Other: Meal Breakfast Percent of Meal Consumed 0% Weight 69 kg 69 kg Blood Glucose* 135 75 Hemodialysis Net Fluid Removed 2400 (mL) Patient Weight 11/23/17 23:59 Weight 69 kg - General Appearance General appearance: Present: well-developed, well-nourished Exam: Patient asleep on dialysis. EENT: Present: ATNC Neck: Present: supple Cardiology: Present: no edema, regular rate Integumentary: Present: warm and dry Musculoskeletal: Present: no cyanosis - Lab 11/23/17 05:11 11/23/17 05:11 Most recent lab results Calcium 9.9 mg/dL (8.6-10.3) 11/23/17 05:11 Consult Discharge Plan - Plan Referrals: Rudi Avila MD [Primary Care Provider] - (most likely go to rehab)
--- NOTE | 2017-11-23 13:39 | Discharge Summary ---
- NOTES TO OUTPATIENT PROVIDER Notes to Outpatient Provider: Patient treated for osteomyelitis involving the right great toe. She will need IV antibiotics for 4-6 weeks. She will be on vancomycin which she will receive postdialysis. Follow up on CBC and basic panel for appropriate dosing. Orders not resulted at time of discharge: Pending orders 11/21/17 16:45 Culture,Anaerobic [RM] Routine Culture,Tissue (Biopsy) [RM] Routine Culture,Wound [RM] Routine Date of Encounter: 11/23/17 Time of Encounter: 13:35 - Discharge Diagnosis (1) Osteomyelitis Priority: Primary Status: Acute Qualifiers: Osteomyelitis type: other acute Osteomyelitis location: foot Laterality: right Qualified Code(s): M86.171 - Other acute osteomyelitis, right ankle and foot (2) Toe ulcer Priority: Secondary Status: Acute Qualifiers: Laterality: right Non-pressure ulcer stage: unspecified non-pressure ulcer stage Qualified Code(s): L97.519 - Non-pressure chronic ulcer of other part of right foot with unspecified severity (3) Depression, major, single episode, mild Priority: Secondary Status: Chronic (4) ESRD (end stage renal disease) on dialysis Priority: Secondary Status: Chronic (5) 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 Priority: Secondary Status: Chronic Qualifiers: Lower extremity ulceration location: calf Qualified Code(s): I70.232 - Atherosclerosis of [place] arteries of right leg with ulceration of calf; I70.242 - Atherosclerosis of [place] arteries of left leg with ulceration of calf (6) Essential hypertension Priority: Secondary Status: Chronic (7) DVT prophylaxis Priority: Secondary Status: Acute (8) Diabetes mellitus Priority: Secondary Status: Chronic Qualifiers: Diabetes mellitus type: type 2 Diabetes mellitus terminal operations supervisor insulin use: with [facility] use Diabetes mellitus complication status: with kidney complications Diabetes mellitus complication detail: with chronic kidney disease Chronic kidney disease stage: on chronic dialysis Qualified Code(s) : E11.22 - Type 2 diabetes mellitus with diabetic chronic kidney disease; N18.6 - End stage renal disease; N18.6 - End stage renal disease; N18.6 - End stage renal disease; N18.6 - End stage renal disease; Z79.4 - terminal operations manager (current) use of insulin; Z79.4 - [facility] (current) use of insulin; Z79.4 - terminal operations manager ( current) use of insulin; Z79.4 - terminal operations manager (current) use of insulin; Z99.2 - Dependence on renal dialysis; Z99.2 - Dependence on renal dialysis; Z99.2 - Dependence on renal dialysis; Z99.2 - Dependence on renal dialysis (9) Intractable headache Priority: Secondary Status: Acute Qualifiers: Headache type: tension-type Headache chronicity pattern: acute headache Qualified Code(s): G44.201 - Tension-type headache, unspecified, intractable Hospital course: Ms. Eng is a 71 year old female patient with a history of end-stage renal disease, calciphylaxis, essential hypertension, peripheral vascular disease who was hospitalized here after presenting to the ER with symptoms of malaise, headache and right great toe pain. She has a chronic right great toe ulcer and there was concern for osteomyelitis. As such she underwent foot CT which showed signs concerning for osteomyelitis involving the great toe. As such podiatry was consulted and patient was placed on IV antibiotics. She underwent surgery with incision and drainage of the right foot and amputation of right hallux on 11/21/17. Wound cultures are positive for MRSA. As such infectious disease was consulted. Per their evaluation, they recommend treating osteomyelitis with 4-6 weeks of IV antibiotics. Patient is a dialysis patient and gets dialyzed 3 times weekly and I discussed her case with the winder fixer and they will make arrangements for her to receive vancomycin postdialysis on her dialysis days. She will follow up with infectious disease and podiatry as outpatient for further management. I also recommended home health nursing care and physical therapy given her comorbidities and postoperative condition. Discharge discussed with: patient, family, nurse - Time Spent with Patient Total time spent providing and/or coordinating discharge services: Greater than 30 minutes (45 min) - Discharge Medications Prescriptions: HYDROcodone/Acet 5/325 mg [[place] 5-325 mg] 1 tab PO Q8HR PRN 3 Days #7 tablet PRN Reason: Moderate Pain Vancomycin [Vancocin] 1 each IVPB POSTDI #20 vial Home Medications: Lidocaine/Prilocaine [Emla] 1 appl TP ONCE PRN 10/09/16 [History] Clopidogrel [Plavix] 75 mg PO DAILY tablet 10/16/16 [Rx] DiphenhydraMINE [Benadryl] 25 mg PO HS PRN #10 02/05/17 [Rx] Citalopram [CeleXA] 20 mg PO DAILY 03/30/17 [History] Metoprolol [Lopressor] 25 mg PO BID 03/30/17 [History] Aspirin Enteric Coated [Aspirin EC] 81 mg PO DAILY #30 tablet. 06/11/17 [Rx] Multivitamin [Multivitamins] 1 cap PO DAILY 09/03/17 [History] Acetaminophen [Tylenol] 650 mg PO Q6HR PRN #30 tablet 09/10/17 [Rx] Ondansetron HCl [Zofran] 4 mg PO TID PRN 09/20/17 [History] Gabapentin [Neurontin] 100 mg PO TID #15 capsule 09/21/17 [Rx] HYDROcodone/Acet 5/325 mg [[place] 5-325 mg] 1 tab PO Q8HR PRN 3 Days #7 tablet [Rx] Vancomycin [Vancocin] 1 each IVPB POSTDI #20 vial 11/23/17 [Rx] Allergies/Adverse Reactions: 3 Allergy/AdvReac Type Severity Reaction Status Date / Time Penicillins Allergy Hives Verified 11/19/17 18:23 Date of admission: 11/19/17 19:46 Primary care physician: Rudi Avila MD Consults: 11/20/17 07:30 Consult to Dialysis [CONS] ONCE 11/21/17 08:45 Consult to Dialysis [CONS] ONCE 11/22/17 07:56 Consult to Infectious Diseases [CONS] Routine Consulting Provider: [facility] [place] Reason for Consult: Osteomyelitis for IV antibiotics Time Notified: 07:56 Call Completed: Yes 11/23/17 08:00 Consult to Dialysis [CONS] ONCE Discharging clinician: Brina Hurst Anticipated date of discharge: 11/23/17 - Constitutional Vitals: Temp Pulse Resp BP Pulse Ox 97.4 F L 62 18 111/59 97 11/23/17 12:42 11/23/17 07:38 11/23/17 12:42 11/23/17 12:42 11/23/17 07:38 General appearance: Present: cooperative, no acute distress, answers questions appropriately Exam: Somnolent but awakes and answers questions appropriately - Neck Neck exam general surgery: Present: supple, trachea midline. Absent: lymphadenopathy - Respiratory Respiratory exam: Present: CTAB. Absent: accessory muscle use, rales, rhonchi, wheezes - Cardiovascular Cardiovascular exam: Present: RRR, +S1, +S2. Absent: diastolic murmur, gallop, rubs, systolic murmur - GI/Abdominal GI/Abdominal exam: Present: normal bowel sounds, soft, no peritoneal signs. Absent: distended, tenderness - Extremities Exam Extremities exam: Present: warm, radial pulses palpable and symmetrical. Absent : calf tenderness, cyanotic, pedal edema Additional comments: right foot bandaged - Neurological Exam Neurological exam: Present: no focal deficits. Absent: facial droop, speech deficit - Skin Skin exam: Present: dry, intact - Patient Status Disposition: Home Health Service Condition: Fair Functional capacity at discharge: wheelchair bound Overall status at discharge: patient is progressing back to baseline - Discharge Instructions Instructions: Chronic Hypertension (DC) Follow Up With: Rudi Avila MD [Primary Care Provider] - 11/30/17 9:45 am () Sylvia Dempsey MASH GRINDER [Advanced Practice Nurse] - 12/05/17 () Luther Tijerina DPM [Partnered Physician] - (in 1 week) Additional Instructions: Keep right heel floated off of bed, prevalon boot ordered. Minimal weight bearing or activity Heel touch only for transfers Please have post operative shoe in place during transfers for protection. - Diet and Activity Activity: as per physical therapy Diet: diabetic diet, low fat, low cholesterol, low salt diet
[2017-11-23 13:42] VITALS: BP 153/80
--- NOTE | 2017-11-23 13:48 | Physician Discharge Referral ---
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 For more information, call the [employer] Tobacco Quit Line at 8-738-IZRL-NOW. - Diet/Nutrition Diet/Nutrition Orders: Cardiac, No Concentrated Sweets (cardiac) - Activity Activity: List: Per PT - Services Needed Following services are medically necessary services: Nursing, Home Health Aide, Physical Therapy, Occupational Therapy Home Care Orders: CBC, basic panel, vancomycin level every Sunday while patient is receiving vancomycin Keep right heel floated off of bed, prevalon boot ordered. Minimal weight bearing or activity Heel touch only for transfers Please have post operative shoe in place during transfers for protection. - Transfer Medications Prescriptions: HYDROcodone/Acet 5/325 mg [[place] 5-325 mg] 1 tab PO Q8HR PRN 3 Days #7 tablet PRN Reason: Moderate Pain Vancomycin [Vancocin] 1 each IVPB POSTDI #20 vial Home Medications: Lidocaine/Prilocaine [Emla] 1 appl TP ONCE PRN 10/09/16 [History] Clopidogrel [Plavix] 75 mg PO DAILY tablet 10/16/16 [Rx] DiphenhydraMINE [Benadryl] 25 mg PO HS PRN #10 02/05/17 [Rx] Citalopram [CeleXA] 20 mg PO DAILY 03/30/17 [History] Metoprolol [Lopressor] 25 mg PO BID 03/30/17 [History] Aspirin Enteric Coated [Aspirin EC] 81 mg PO DAILY #30 tablet. 06/11/17 [Rx] Multivitamin [Multivitamins] 1 cap PO DAILY 09/03/17 [History] Acetaminophen [Tylenol] 650 mg PO Q6HR PRN #30 tablet 09/10/17 [Rx] Ondansetron HCl [Zofran] 4 mg PO TID PRN 09/20/17 [History] Gabapentin [Neurontin] 100 mg PO TID #15 capsule 09/21/17 [Rx] HYDROcodone/Acet 5/325 mg [[place] 5-325 mg] 1 tab PO Q8HR PRN 3 Days #7 tablet [Rx] Vancomycin [Vancocin] 1 each IVPB POSTDI #20 vial 11/23/17 [Rx] Allergies/Adverse Reactions: 3 Allergy/AdvReac Type Severity Reaction Status Date / Time Penicillins Allergy Hives Verified 11/19/17 18:23 Certification: Further, I certify that my clinical findings support that this patient is homebound (i.e. absences from home require considerable and taxing effort and are for medical reasons or rastafarian services or infrequently or short duration when for other reasons) because: Homebound Reason: Patient requires assistance of a person or device to safely leave home, Post-surgery restriction and or conditions limit ability to leave home Attestation: My signature below is to certify that this patient is under my care and that I, or nurse practitioner, or a physician's pastrycook's assistant working with me, has a face-to -face encounter with this patient.
[2017-11-23] MEDS ORDERED: Aminoglycoside Consult 1 EACH MC ONE (15:49)
[2017-11-23] MEDS ORDERED: Levofloxacin 500 MG/100 ML 500 MG/100 ML BAG IVPB SCH (18:00)
== END 2017-11-23 15:50 | disposition home health service (06) | DRG 616 ==
LOC: 2ANU 14:38 → EMEROO 14:38 → SUATTDRO 19:46 → 2ANU 20:00
PROVIDERS: ADMIT Hospitalist; ATTEND Internal Medicine

== ENCOUNTER 2018-01-14 21:54 | Inpatient (IN) ==
[2018-01-14] MEDS ORDERED: *HR* Nalbuphine 10 MG/ML AMPUL IVP ONE (22:38)
[2018-01-14] MEDS ORDERED: *HR* Nalbuphine 10 MG/ML AMPUL IM STA (22:57)
[2018-01-14 23:24] LABS: Basophils # 0.1 K/mcL (0.0-0.2); Basophils % 0.7 %; Eosinophils # 0.2 K/mcL (0.0-0.6); Eosinophils % 2.1 %; Hematocrit 39.2 % (35.3-44.9); Hemoglobin 13.1 g/dL (11.5-15.4); Immature Granulocytes % 0.3 % (0-4); Lymphocytes # 0.8 K/mcL (0.6-4.6); Lymphocytes % 10.8 %; Mean Corpuscular HGB Conc 33.4 g/dL (31.6-35.5); Mean Corpuscular Hemoglobin 33.9 pg (28.0-33.3); Mean Corpuscular Volume 101.6 fL (83.0-100.0); Mean Platelet Volume 9.8 fL (9.4-12.4); Monocytes # 0.6 K/mcL (0.0-1.3); Monocytes % 7.5 %; Platelet Count 215 K/mcL (140-400); Red Blood Count 3.86 M/mcL (3.82-4.97); Red Cell Distribution Width 16.7 % (11.5-14.5); Segmented Neutrophils % 78.6 %
[2018-01-14 23:47] LABS: Calcium 9.4 mg/dL (8.6-10.3); Potassium 3.3 mEq/L (3.5-5.1)
[2018-01-14 23:49] LABS: Troponin I 0.04 ng/mL (< 0.04)
--- NOTE | 2018-01-15 00:35 | Emergency Department Note ---
Disposition Clinical Impression: Hypertension Qualifiers: Hypertension type: renovascular hypertension Qualified Code(s): I15.0 - Renovascular hypertension Cephalgia Qualifiers: Headache type: other headache syndrome Qualified Code(s): G44.89 - Other headache syndrome Disposition: Still a Patient Condition: Good Instructions: Hypertension (ED) Referrals: Rudi Avila MD [Primary Care Provider] - Shaheed Navarrete DO [Partnered Physician] - Forms: ED Satisfaction Letter, Work/School Release General Adult HPI - General Chief complaint: ED General Medical Stated complaint: HTN Time Seen by Provider: 01/14/18 22:04 Source: patient, EMS Limitations: no limitations Nursing Notes Reviewed: Yes Vital Signs Reviewed: Yes - History of Present Illness HPI Narrative: 72-year-old female presents emergency room for concerns for a headache and associated elevated blood pressure. She does take some blood pressure medications at home. States she has been compliant with her blood pressure medicines. She states she normally runs in the 120s. She has had a headache for the past 3 days. She denies head trauma. No neck pain or neck stiffness. She again denies any falls. No focal motor or sensory deficits associated with the headache. She states she is unclear if the headache started before or after her high blood pressure problems. She had her full round of dialysis today as well. No other complaints at this time. Pain Scale: 0 - Related Data Home Medications Medication Instructions Recorded Confirmed Lidocaine/Prilocaine [Emla] 1 appl TP ONCE PRN 10/09/16 11/19/17 Citalopram [CeleXA] 20 mg PO DAILY 03/30/17 11/19/17 Metoprolol [Lopressor] 25 mg PO BID 03/30/17 11/19/17 Multivitamin [Multivitamins] 1 cap PO DAILY 09/03/17 11/19/17 Ondansetron HCl [Zofran] 4 mg PO TID PRN 09/20/17 11/19/17 Previous Rx's Medication Instructions Recorded Clopidogrel [Plavix] 75 mg PO DAILY tablet 10/16/16 DiphenhydraMINE [Benadryl] 25 mg PO HS PRN #10 02/05/17 Aspirin Enteric Coated [Aspirin EC] 81 mg PO DAILY #30 tablet. 06/11/17 Acetaminophen [Tylenol] 650 mg PO Q6HR PRN #30 tablet 09/10/17 Gabapentin [Neurontin] 100 mg PO TID #15 capsule 09/21/17 HYDROcodone/Acet 5/325 mg [[place] 1 tab PO Q8HR PRN 3 Days #7 tablet 11/23/17 5-325 mg] Vancomycin [Vancocin] 1 each IVPB POSTDI #20 vial 11/23/17 Allergies Allergy/AdvReac Type Severity Reaction Status Date / Time Penicillins Allergy Hives Verified 11/19/17 18:23 All systems ED: reviewed and negative except as stated. Constitutional: Denies: fever, chills Eyes: Reports: as per HPI ENT ED: Reports: as per HPI Cardiovascular: Denies: chest pain, palpitations Respiratory: Denies: cough Gastrointestinal: Denies: abdominal pain Musculoskeletal: Reports: as per HPI. 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 Absent: respiratory distress, accessory muscle use - Cardiovascular Cardiovascular exam: Present: regular rate, normal rhythm, normal heart sounds - Abdominal Exam Abdominal exam: Present: soft, Non-Tender, normal bowel sounds - Extremities Exam Extremities exam: Present: other (Left BKA noted.) - Expanded Lower Extremity Exam Hip/Pelvis exam: Present: normal inspection - Neurological Exam Neurological exam: Present: alert, oriented X3, CN II-XII intact. Absent: motor sensory deficit - Psychiatric Psychiatric exam: Present: normal affect, normal mood - Skin Skin exam: Present: warm, dry, intact Course Vital Signs Temperature 97.8 F 01/14/18 21:57 Pulse Rate 84 01/14/18 21:57 Respiratory Rate 16 01/14/18 21:57 Blood Pressure 211/82 01/14/18 21:57 O2 Sat by Pulse Oximetry 95 01/14/18 21:57 Temperature 97.8 F 01/14/18 21:57 Pulse Rate 81 01/15/18 00:42 Respiratory Rate 16 01/15/18 00:42 Blood Pressure 151/62 01/15/18 00:42 O2 Sat by Pulse Oximetry 93 01/15/18 00:42 Oxygen Delivery Oxygen Delivery Room Air Medical Decision Making - MDM Narrative Medical decision making narrative: CT of the brain did not show acute any acute findings. The chest x-ray showed a consolidation or infiltrate in the right medial upper lobe. This was seen on previous chest x-ray and I feel this is secondary to some rotation on the film. Patient has no signs of any pneumonia. She denies a cough. No white count. No fevers. Her blood pressure came down nicely after her pain control. Last blood pressure was in the 130s systolic. She is still on her blood pressure medicine at home. Recommended that she follow-up with her hazard mitigation officer for further blood pressure evaluation. Told to a lot of her blood pressures. Remaining lab work was unremarkable. The [place] did not seem to sedate her quite a bit. We did observe her in the emergency room. - Medical Records Medical records reviewed: Yes I reviewed the patient's medical records. - Lab Data Lab results reviewed: Yes I reviewed the patient's lab results. Result diagrams: 01/14/18 22:57 01/14/18 22:57 Lab Results 01/14/18 01/14/18 Range/Units 22:57 22:57 WBC 7.6 (4.3-11.1) K/mcL RBC 3.86 (3.82-4.97) M/mcL Hgb 13.1 (11.5-15.4) g/dL Hct 39.2 (35.3-44.9) % MCV 101.6 H (83.0-100.0) fL MCH 33.9 H (28.0-33.3) pg MCHC 33.4 (31.6-35.5) g/dL RDW 16.7 H (11.5-14.5) % Plt Count 215 (140-400) K/mcL MPV 9.8 (9.4-12.4) fL Immature Gran % 0.3 (0-4) % Seg Neutrophils % 78.6 % Lymphocytes % 10.8 % Monocytes % 7.5 % Eosinophils % 2.1 % Basophils % 0.7 % Neutrophils # 6.0 (1.6-8.9) K/mcL Lymphocytes # 0.8 (0.6-4.6) K/mcL Monocytes # 0.6 (0.0-1.3) K/mcL Eosinophils # 0.2 (0.0-0.6) K/mcL Basophils # 0.1 (0.0-0.2) K/mcL Sodium 137 (136-145) mEq/L Potassium 3.3 L (3.5-5.1) mEq/L Chloride 97 L (98-107) mEq/L Carbon Dioxide 29 (23-29) mEq/L BUN 16 (8-23) mg/dL Creatinine 2.84 H (0.60-1.20) mg/dL Est GFR ( Amer) 20 L (> 60) Est GFR (Non-Af Amer) 16 L (> 60) BUN/Creatinine Ratio 6 (6-26) Glucose 102 (70-105) mg/dL Calculated Osmolality 285 (280-300) Calcium 9.4 (8.6-10.3) mg/dL Troponin I 0.04 H* (< 0.04) ng/mL - Radiology Data Radiology results reviewed: Yes I reviewed the patient's radiology results. - EKG Data EKG #1 EKG attestation: Yes I reviewed and interpreted this EKG. EKG results narrative: EKG shows a rate of 86. Normal sinus rhythm. Normal axis. RI interval 191. QRS 112 QTC 457. No signs of acute ischemia.
[2018-01-15] MEDS ORDERED: Cefepime HCl 2,000 MG in Water for inj. (sterile) 20 ML 20 ML IVP ONE (04:09)
[2018-01-15 04:59] LABS: VBG HCO3 34 mEq/L (21-27); VBG PCO2 61 mmHg (41-51); VBG PH 7.35 pH Units (7.32-7.42); VBG PO2 90 mmHg (25-50)
--- NOTE | 2018-01-15 05:46 | Internal Med History&Physical ---
<Willis Unger - Last Filed: 01/15/18 05:35> Date of Encounter: 01/15/18 Time of Encounter: 05:35 Internal Medicine - H&P: HPI Chief complaint: Headache Admitted From: Emergency Dept Plans for Post Hospital Care: Home History of present illness: Ms. 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 Patient was hospitalized here at [facility] from 11/19-11/23/17 after being treated for right great toe osteomyelitis. She underwent surgery by podiatry with incision and drainage of right foot great toe with amputation of the hallux on 11/21. Her wound cultures were positive for MRSA. At that time, she was seen by infectious disease and recommendation was treatment 4-6 weeks of IV antibiotics. Upon questioning today, history was very difficult to obtain because patient was very sleepy and drowsy. She states that she urgently 1st came to the emergency department due to intermittent severe headache that had been going on since last . She was concern that this was possibly due to her elevated blood pressures. Patient denies any recent head trauma and denies in the pain or next deafness. She denies any recent falls. Admits to nausea with about 3 episodes of vomiting since last Sunday when her headache started. She denies fevers, admits to chills, denies chest pain, shortness of breath. Denies hematuria, hematochezia, melena. Patient does report nonproductive cough that has been going on for a couple of days. She denies any further problems today. Past Med Surg Social Fam HX - Past Medical History Medical history: coronary artery disease, diabetes, dialysis, hyperlipidemia, hypertension, renal disease, other Psychiatric history: anxiety, depression - Past Surgical History Surgical History: carotid endarterectomy, hysterectomy, orthopedic, other, thyroidectomy, other (amputation left leg) - Social History Smoking Status: Never smoker Smokeless Tobacco Status: No Alcohol use: none Drug use: none - Family History Mother Adopted: No Family Member Ethnicity: Non- Living Status: Hx Family Cardiac Disorders: No Hx Family Respiratory Disorders: Yes Hx Family Cancer: Yes Hx Family GI Disorders: No Hx Family Endocrine Disorder: No Hx Family Neuromuscular Disorders: No Hx Family Neurologic Disorders: No Hx Family HEENT Disorders: No Hx Family Autoimmune Disorders: No Father Adopted: No Family Member Ethnicity: Non- Living Status: Hx Family Cardiac Disorders: Yes Hx Family Respiratory Disorders: Yes Hx Family Cancer: No Hx Family GI Disorders: No Hx Family Endocrine Disorder: Yes Hx Family Neuromuscular Disorders: No Hx Family Neurologic Disorders: Yes Hx Family HEENT Disorders: No Hx Family Autoimmune Disorders: No Internal Medicine - H&P: Meds Lidocaine/Prilocaine [Emla] 1 appl TP ONCE PRN 10/09/16 [History] Clopidogrel [Plavix] 75 mg PO DAILY tablet 10/16/16 [Rx] DiphenhydraMINE [Benadryl] 25 mg PO HS PRN #10 02/05/17 [Rx] Citalopram [CeleXA] 20 mg PO DAILY 03/30/17 [History] Metoprolol [Lopressor] 25 mg PO BID 03/30/17 [History] Aspirin Enteric Coated [Aspirin EC] 81 mg PO DAILY #30 tablet. 06/11/17 [Rx] Multivitamin [Multivitamins] 1 cap PO DAILY 09/03/17 [History] Acetaminophen [Tylenol] 650 mg PO Q6HR PRN #30 tablet 09/10/17 [Rx] Ondansetron HCl [Zofran] 4 mg PO TID PRN 09/20/17 [History] Gabapentin [Neurontin] 100 mg PO TID #15 capsule 09/21/17 [Rx] HYDROcodone/Acet 5/325 mg [[place] 5-325 mg] 1 tab PO Q8HR PRN 3 Days #7 tablet [Rx] Vancomycin [Vancocin] 1 each IVPB POSTDI #20 vial 11/23/17 [Rx] 3 Allergy/AdvReac Type Severity Reaction Status Date / Time Penicillins Allergy Hives Verified 11/19/17 18:23 All Systems PM: A 10-system review of systems was performed and is negative for pertinent findings except as documented above in the HPI. - Constitutional Constitutional: as per HPI - EENT Eyes: as per HPI Ears: as per HPI Nose, mouth and throat: as per HPI - Breasts Breasts: as per HPI - Cardiovascular Cardiovascular ROS IM: as per HPI - Respiratory Respiratory: as per HPI - Gastrointestinal Gastrointestinal: as per HPI - Genitourinary Genitourinary: as per HPI Menstruation: as per HPI - Musculoskeletal Musculoskeletal ROS IM: as per HPI - Integumentary Integumentary IM: as per HPI - Neurological Neurological ROS: as per HPI - Psychiatric Psychiatric: as per HPI - Endocrine Endocrine IM: as per HPI - Hematologic/Lymphatic Hematologic/Lymphatic: as per HPI - Allergic/Immunologic Allergic/Immunologic: as per HPI - Constitutional Vitals: Temp Pulse Resp BP Pulse Ox 97.8 F 62 13 156/65 100 01/14/18 21:57 01/15/18 03:56 01/15/18 04:56 01/15/18 04:56 01/15/18 03:56 General appearance: Present: A&O X 3, pleasant, no acute distress Exam: Patient is asleep, and is very drowsy, she had to be awoken from sleep multiple times in order to answer questions. - Head Head exam: Present: atraumatic, normocephalic - Neck Neck exam general surgery: Present: supple, trachea midline - Respiratory Additional comments: Upper lobe sound clear, bilateral lower lobes rales present - Cardiovascular Cardiovascular exam: Present: RRR, +S1, +S2. Absent: systolic murmur - GI/Abdominal GI/Abdominal exam: Present: normal bowel sounds, soft. Absent: distended, tenderness - Extremities Exam Additional comments: Left BKA present. Right great toe is amputated and there is Band-Aid overlying the area. Right 3rd toe has Band-Aid covering the toe - Neurological Exam Neurological exam: Present: alert, oriented X3, no focal deficits - Psychiatric Psychiatric exam: Present: normal affect, normal mood Internal Med - H&P Results - Labs CBC & Chem 7: 01/14/18 22:57 01/14/18 22:57 - Assessment and plan (1) HCAP (healthcare-associated pneumonia) Current Visit: No Status: Acute Assessment and plan: Patient recently hospitalized from 11/19- right great toe osteomyelitis, S/P great toe amputation. Patient only has symptoms of nonproductive cough. Patient is not meet sepsis criteria at this time. CT showed by basilar lower lobe airspace disease, chest x-ray showed infiltrate within the medial right upper lobe. Plan: blood cultures done in the ER received vancomycin, cefepime in ED, day 1 clinical symptoms and labs do not fully fit picture of pneumonia. Could be early presentation, but will treat with IV ABX to start, consider de escalating quickly if blood cultures negative. consult to nephro for dialysis (2) Headache Current Visit: Yes Status: Chronic Assessment and plan: Resolved at this time. Continue to monitor. Qualifiers: Headache type: other headache syndrome Qualified Code(s): G44.89 - Other headache syndrome (3) Diabetes mellitus Current Visit: No Status: Chronic Assessment and plan: History of type II diabetes. Last A1 C checked 09/21/17 was 4.5. Patient is not on any diabetic medications at home. Will recheck her A1 C. Continue with aCHS Accu checks Qualifiers: Diabetes mellitus type: type 2 Diabetes mellitus correction insulin use: with termite control representative use Diabetes mellitus complication status: with kidney complications Diabetes mellitus complication detail: with chronic kidney disease Chronic kidney disease stage: on chronic dialysis Qualified Code(s) : E11.22 - Type 2 diabetes mellitus with diabetic chronic kidney disease; N18.6 - End stage renal disease; Z99.2 - Dependence on renal dialysis; Z99.2 - Dependence on renal dialysis; Z99.2 - Dependence on renal dialysis; N18.6 - End stage renal disease; N18.6 - End stage renal disease; N18.6 - End stage renal disease; Z79.4 - ocean transportation intermediary (current) use of insulin; Z79.4 - [facility] (current ) use of insulin; Z79.4 - ocean transportation intermediary (current) use of insulin; Z79.4 - [facility] (current) use of insulin; Z99.2 - Dependence on renal dialysis (4) Anemia Current Visit: No Status: Chronic Assessment and plan: history of anemia-note macrocytosis on H/H. order B12, folate levels. Qualifiers: Anemia type: unspecified type Qualified Code(s): D64.9 - Anemia, unspecified (5) ESRD (end stage renal disease) on dialysis Current Visit: No Status: Chronic Assessment and plan: Receives dialysis Sunday consult to nephrology for dialysis (6) PAD (peripheral artery disease) Current Visit: No Status: Chronic (7) Essential hypertension Current Visit: No Status: Chronic Assessment and plan: Continue home medications once verified. (8) Status post below knee amputation of left lower extremity Current Visit: No Status: Acute (9) CAD in [place] artery Current Visit: No Status: Acute Assessment and plan: Continue home medications once verified (10) DVT prophylaxis Current Visit: No Status: Acute Assessment and plan: Heparin SQ (11) Troponin level elevated Current Visit: No Status: Acute Assessment and plan: Patient denies current chest pain. Mild troponin elevation, but is chronically elevated and has been elevated in the past. EKG showed sinus rhythm without any ischemic changes. Continue to monitor - Time Spent With Patient Total time spent is greater than 50% in coordination of care (as documented) at patient's floor/unit and/or counseling patient: <Julia Rojas - Last Filed: 01/15/18 07:08> Date of Encounter: 01/15/18 Internal Medicine - H&P: HPI History of present illness: Ms. Eng is a 72 year old female All Systems PM: A 10-system review of systems was performed and is negative for pertinent findings except as documented above in the HPI. - Constitutional Vitals: Temp Pulse Resp BP Pulse Ox 97.4 F L 68 19 158/67 100 01/15/18 06:47 01/15/18 06:47 01/15/18 06:47 01/15/18 06:47 01/15/18 06:47 Internal Med - H&P Results - Labs CBC & Chem 7: 01/15/18 04:43 01/15/18 04:43 - Attending Attestation I have seen and examined this patient independently. I have discussed with Resident physician Dr Unger regarding the management plan. Agree with the documentation. - Assessment and plan (1) Headache Current Visit: Yes Status: Chronic Qualifiers: Headache type: other headache syndrome Qualified Code(s): G44.89 - Other headache syndrome (2) Diabetes mellitus Current Visit: No Status: Chronic Qualifiers: Diabetes mellitus type: type 2 Diabetes mellitus termite control representative insulin use: with termite control representative use Diabetes mellitus complication status: with kidney complications Diabetes mellitus complication detail: with chronic kidney disease Chronic kidney disease stage: on chronic dialysis Qualified Code(s) : E11.22 - Type 2 diabetes mellitus with diabetic chronic kidney disease; N18.6 - End stage renal disease; Z99.2 - Dependence on renal dialysis; Z99.2 - Dependence on renal dialysis; Z99.2 - Dependence on renal dialysis; N18.6 - End stage renal disease; N18.6 - End stage renal disease; N18.6 - End stage renal disease; Z79.4 - [facility] (current) use of insulin; Z79.4 - [facility] (current ) use of insulin; Z79.4 - [facility] (current) use of insulin; Z79.4 - ocean transportation intermediary (current) use of insulin; Z99.2 - Dependence on renal dialysis (3) DVT prophylaxis Current Visit: No Status: Acute (4) Anemia Current Visit: No Status: Chronic Qualifiers: Anemia type: unspecified type Qualified Code(s): D64.9 - Anemia, unspecified (5) ESRD (end stage renal disease) on dialysis Current Visit: No Status: Chronic (6) HCAP (healthcare-associated pneumonia) Current Visit: No Status: Acute (7) PAD (peripheral artery disease) Current Visit: No Status: Chronic (8) Essential hypertension Current Visit: No Status: Chronic (9) Status post below knee amputation of left lower extremity Current Visit: No Status: Acute (10) CAD in [place] artery Current Visit: No Status: Acute (11) Troponin level elevated Current Visit: No Status: Acute - Time Spent With Patient Total time spent is greater than 50% in coordination of care (as documented) at patient's floor/unit and/or counseling patient:
[2018-01-15] MEDS ORDERED: Ipratropium/Albuterol Neb 3 ML IH PRN (05:51)
[2018-01-15] MEDS ORDERED: Naloxone 0.4 MG/ML INJ IVP PRN (05:52)
[2018-01-15 06:10] LABS: Hematocrit 36.6 % (35.3-44.9); Hemoglobin 11.9 g/dL (11.5-15.4); Mean Corpuscular HGB Conc 32.5 g/dL (31.6-35.5); Mean Corpuscular Hemoglobin 33.5 pg (28.0-33.3); Mean Corpuscular Volume 103.1 fL (83.0-100.0); Mean Platelet Volume 10.1 fL (9.4-12.4); Platelet Count 192 K/mcL (140-400); Red Blood Count 3.55 M/mcL (3.82-4.97); Red Cell Distribution Width 16.7 % (11.5-14.5)
[2018-01-15] MEDS: *HR* Heparin 5,000 UNIT/ML VIAL SQ SCH ×2 (06:16→18:12)
[2018-01-15 06:30] LABS: Calcium 9.4 mg/dL (8.6-10.3); Phosphorous 6.9 mg/dL (2.7-4.5)
[2018-01-15 06:32] LABS: Troponin I 0.05 ng/mL (< 0.04)
[2018-01-15 06:38] LABS: Potassium 3.7 mEq/L (3.5-5.1)
[2018-01-15 07:47] LABS: Vitamin B12 349 pg/mL (250-1100)
[2018-01-15 07:54] LABS: Folate > 22.3 ng/mL (3.0-16.0)
[2018-01-15 07:57] LABS: Estimated Average Glucose 82 mg/dl; Hemoglobin A1C 4.5 %
[2018-01-15] MEDS ORDERED: Cefepime HCl 2,000 MG in 0.9 % Sodium Chloride Mini Bag 100 ML IVPB SCH (08:00)
[2018-01-15] MEDS: Acetaminophen 325 MG TABLET PO PRN ×3 (09:06→22:23)
--- NOTE | 2018-01-15 10:28 | Nephrology Consult Note ---
Date of Encounter: 01/15/18 Time of Encounter: 10:22 Assessment and Plan (1) ESRD (end stage renal disease) on dialysis Current Visit: No Status: Chronic HD MWF. Renal vitamins. Renal dose medications. Renal diet. Additional dialysis and ultrafiltration as needed. Patient's last dialysis was Sunday. She does not need dialysis today. Thank you for consulting [facility] to participate in the care of your patient. We will continue to follow and assist with management during your patient's hospitalization. We invite you to contact us with any questions or concerns. (2) Hypertension Current Visit: Yes Status: Acute Patient with a history of hypertension. She presented with hypertensive urgency. Blood pressure is currently control although not ideal. Titrate antihypertensive medication needed. Qualifiers: Hypertension type: renovascular hypertension Qualified Code(s): I15.0 - Renovascular hypertension (3) Headache Current Visit: Yes Status: Chronic Etiology is unclear. Since her headache required hospitalization I would recommend a neurology consult. Her headache may be related to the accelerated hypertension she had upon presentation. However, if it does not improve with blood pressure control consider a neurology consultation. Qualifiers: Headache type: other headache syndrome Qualified Code(s): G44.89 - Other headache syndrome (4) T2DM (type 2 diabetes mellitus) Current Visit: No Status: Chronic Per the primary team. Qualifiers: Diabetes mellitus hatchery man insulin use: unspecified hatchery man insulin use status Diabetes mellitus complication status: with kidney complications Diabetes mellitus complication detail: with chronic kidney disease Chronic kidney disease stage: on chronic dialysis Qualified Code(s): E11.22 - Type 2 diabetes mellitus with diabetic chronic kidney disease; N18.6 - End stage renal disease; Z99.2 - Dependence on renal dialysis History of Present Illness - Reason for Consult Consult date: 01/15/18 end stage renal disease - Chief Complaint ESRD - History of Present Illness Ms. Eng is a 72 yo woman with multiple medical problems who presents secondary to a persistent headache. The patient receives dialysis MWF under the direction of [facility] via a right upper arm fistula. Her last dialysis was Sunday. Her biggest complaint is of a headache been going on for multiple days. She denied blurred vision. she denies nausea. she denies emesis. she denies diarrhea and no myalgias. She denies having any problem with dialysis. She also denies chest pain, shortness of breath. Past Med Surg Social Fam HX - Past Medical History Medical history: coronary artery disease, diabetes, dialysis, hyperlipidemia, hypertension, renal disease, other Psychiatric history: anxiety, depression - Past Surgical History Surgical History: carotid endarterectomy, hysterectomy, orthopedic, other, thyroidectomy, other (amputation left leg) - Social History Smoking Status: Never smoker Smokeless Tobacco Status: No Alcohol use: none Drug use: none - Family History Mother Adopted: No Family Member Ethnicity: Non- Living Status: Hx Family Cardiac Disorders: No Hx Family Respiratory Disorders: Yes Hx Family Cancer: Yes Hx Family GI Disorders: No Hx Family Endocrine Disorder: No Hx Family Neuromuscular Disorders: No Hx Family Neurologic Disorders: No Hx Family HEENT Disorders: No Hx Family Autoimmune Disorders: No Father Adopted: No Family Member Ethnicity: Non- Living Status: Hx Family Cardiac Disorders: Yes Hx Family Respiratory Disorders: Yes Hx Family Cancer: No Hx Family GI Disorders: No Hx Family Endocrine Disorder: Yes Hx Family Neuromuscular Disorders: No Hx Family Neurologic Disorders: Yes Hx Family HEENT Disorders: No Hx Family Autoimmune Disorders: No Medications and Allergies Lidocaine/Prilocaine [Emla] 1 appl TP ONCE PRN 10/09/16 [History] Clopidogrel [Plavix] 75 mg PO DAILY tablet 10/16/16 [Rx] DiphenhydraMINE [Benadryl] 25 mg PO HS PRN #10 02/05/17 [Rx] Citalopram [CeleXA] 20 mg PO DAILY 03/30/17 [History] Metoprolol [Lopressor] 25 mg PO BID 03/30/17 [History] Multivitamin [Multivitamins] 1 cap PO DAILY 09/03/17 [History] Acetaminophen [Tylenol] 650 mg PO Q6HR PRN #30 tablet 09/10/17 [Rx] Gabapentin [Neurontin] 100 mg PO TID #15 capsule 09/21/17 [Rx] 3 Allergy/AdvReac Type Severity Reaction Status Date / Time Penicillins Allergy Hives Verified 01/15/18 09:23 Review of Systems All Systems: reviewed and no additional remarkable complaints except as stated ( As per history of present illness.) Exam - Vital Signs Vital signs: Initial Vital Signs Temp Pulse Resp BP Pulse Ox 97.8 F 84 16 211/82 95 01/14/18 21:57 01/14/18 21:57 01/14/18 21:57 01/14/18 21:57 01/14/18 21:57 Vital Signs - Last 8 Hours Temp Pulse Resp BP Pulse Ox 01/15/18 06:47 97.4 F L 68 19 158/67 100 01/15/18 06:05 100 01/15/18 05:38 97.5 F L 70 14 161/69 100 Intake and Output 01/14/18 01/15/18 01/15/18 23:59 07:59 15:59 Intake Total 270 / 270 Balance 270 / 270 Intake: IV Fluids 270 / 270 Maxipime 2,000 MG In Water for inj. (sterile) 20 ML @ 300 mls/ hr IVP ONCE ONE Rx#:[id number] Vancocin 1,000 MG In 0.9 % 250 / 250 Sodium Chloride 250 ML @ 167 mls/hr IVPB ONCE ONE Rx#: [id number] Other: Meal Breakfast Percent of Meal Consumed 0% Weight 67.2 kg Blood Glucose* 73 Patient Weight 01/15/18 23:59 Weight 67.2 kg - General Appearance General appearance: well-developed, well-nourished EENT: ATNC Respiratory: course breath sounds Cardiology: no edema, regular rate - Dialysis Access Dialysis Vascular Access: Arteriovenous Fistula thrill: Yes bruit: Yes Gastrointestinal: no tenderness Integumentary: warm and dry Neurologic: alert and oriented x3 Musculoskeletal: no cyanosis Psychiatric: mood/affect appropriate Results - Lab Results 01/15/18 04:43 01/15/18 04:43 Most recent lab results Calcium 9.4 mg/dL (8.6-10.3) 01/15/18 04:43 Phosphorus 6.9 mg/dL (2.7-4.5) H 01/15/18 04:43 Magnesium 2.0 mg/dL (1.6-2.6) 01/15/18 04:43 Consult Discharge Plan - Plan Referrals: Rudi Avila MD [Primary Care Provider] -
--- NOTE | 2018-01-15 14:12 | Event Note ---
Date of Encounter: 01/15/18 Time of Encounter: 14:11 Seen and evaluated at the bedside Being managed for HCAP BP uncontrolled Resume home meds Continue current meds
[2018-01-15] MEDS ORDERED: Aminoglycoside Consult 1 EACH MC ONE (14:53)
[2018-01-15] MEDS: Gabapentin 100 MG CAPSULE PO SCH ×2 (15:16→22:24)
[2018-01-16] MEDS ORDERED: Ibuprofen 400 MG TABLET PO ONE (00:22)
[2018-01-16] MEDS ORDERED: 0.9 % Sodium Chloride 250 ML IVC PRN (05:10)
[2018-01-16] MEDS: *HR* Heparin 5,000 UNIT/ML VIAL SQ SCH ×2 (05:46→17:46)
[2018-01-16 05:55] LABS: Basophils # 0.1 K/mcL (0.0-0.2); Basophils % 0.7 %; Eosinophils # 0.3 K/mcL (0.0-0.6); Eosinophils % 4.5 %; Hematocrit 36.7 % (35.3-44.9); Hemoglobin 12.5 g/dL (11.5-15.4); Immature Granulocytes % 0.3 % (0-4); Lymphocytes # 0.8 K/mcL (0.6-4.6); Lymphocytes % 10.4 %; Mean Corpuscular HGB Conc 34.1 g/dL (31.6-35.5); Mean Corpuscular Hemoglobin 35.1 pg (28.0-33.3); Mean Corpuscular Volume 103.1 fL (83.0-100.0); Mean Platelet Volume 9.9 fL (9.4-12.4); Monocytes # 0.6 K/mcL (0.0-1.3); Monocytes % 7.4 %; Neutrophils # 5.8 K/mcL (1.6-8.9); Platelet Count 194 K/mcL (140-400); Red Blood Count 3.56 M/mcL (3.82-4.97); Red Cell Distribution Width 16.1 % (11.5-14.5); Segmented Neutrophils % 76.7 %
[2018-01-16] MEDS ORDERED: Cefepime HCl 1,000 MG in Water for inj. (sterile) 20 ML 10 ML IVP SCH (06:00)
[2018-01-16 06:11] LABS: Calcium 9.3 mg/dL (8.6-10.3); Potassium 4.2 mEq/L (3.5-5.1)
--- NOTE | 2018-01-16 08:16 | Electrocardiograph Report ---
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
[2018-01-16] MEDS: Multivit/Ca/Min/Fe/FA 1 TAB TABLET PO SCH (09:20)
[2018-01-16] MEDS: Gabapentin 100 MG CAPSULE PO SCH ×3 (09:20→20:39)
--- NOTE | 2018-01-16 10:45 | Nephrology Progress Note ---
Date of Encounter: 01/16/18 Time of Encounter: 10:42 - Assessment and Plan (1) ESRD (end stage renal disease) on dialysis Current Visit: No Status: Chronic HD MWF. Renal vitamins. Renal dose medications. Renal diet. Additional dialysis and ultrafiltration as needed. Patient received dialysis today. (2) Hypertension Current Visit: Yes Status: Acute Her current blood pressure is controlled. Qualifiers: Hypertension type: renovascular hypertension Qualified Code(s): I15.0 - Renovascular hypertension (3) Headache Current Visit: Yes Status: Chronic Per the primary team. Qualifiers: Headache type: other headache syndrome Qualified Code(s): G44.89 - Other headache syndrome (4) T2DM (type 2 diabetes mellitus) Current Visit: No Status: Chronic Per the primary team. Qualifiers: Diabetes mellitus watermaster insulin use: unspecified alf insulin use status Diabetes mellitus complication status: with kidney complications Diabetes mellitus complication detail: with chronic kidney disease Chronic kidney disease stage: on chronic dialysis Qualified Code(s): E11.22 - Type 2 diabetes mellitus with diabetic chronic kidney disease; N18.6 - End stage renal disease; Z99.2 - Dependence on renal dialysis Subjective Principal diagnosis: ESRD Interval history: seen. She is resting. She tolerated dialysis this morning. Objective - Vital Signs Vital signs: Vital Signs Temp Pulse Resp BP Pulse Ox 01/16/18 08:40 98.4 F 18 129/66 01/16/18 08:25 121/50 01/16/18 08:15 111/56 01/16/18 08:00 115/56 01/16/18 07:45 135/55 01/16/18 07:30 138/57 01/16/18 07:15 129/62 01/16/18 07:00 145/69 01/16/18 06:45 151/65 01/16/18 06:30 153/65 01/16/18 06:15 150/62 01/16/18 06:00 154/66 01/16/18 05:45 97.1 F L 18 151/60 01/16/18 05:44 160/70 01/16/18 04:05 97.6 F 70 18 185/74 100 01/16/18 00:23 97.3 F L 74 18 176/75 100 01/15/18 19:08 97.9 F 71 18 133/71 99 01/15/18 15:22 97.7 F 72 18 154/72 95 Intake and Output 01/15/18 01/16/18 01/16/18 23:59 07:59 15:59 Intake Total 600 / 600 Output Total 2274 / 2274 Balance 600 / 600 -2274 / -2274 Intake: Oral 0 / 0 Intake, Rinseback and Flushes 600 / 600 Output: Urine 0 / 0 Total Dialysis (HD) Output 2274 / 2274 Other: Weight 68.6 kg Blood Glucose* 93 93 Hemodialysis Net Fluid Removed 1748 1674 (mL) Patient Weight 01/16/18 23:59 Weight 68.6 kg - General Appearance General appearance: Present: well-developed, well-nourished EENT: Present: ATNC Cardiology: Present: regular rate - Lab 01/16/18 05:41 01/16/18 05:41 Most recent lab results Calcium 9.3 mg/dL (8.6-10.3) 01/16/18 05:41 Phosphorus 6.9 mg/dL (2.7-4.5) H 01/15/18 04:43 Magnesium 2.0 mg/dL (1.6-2.6) 01/15/18 04:43 Consult Discharge Plan - Plan Referrals: Rudi Avila MD [Primary Care Provider] -
--- NOTE | 2018-01-16 13:52 | Internal Med Progress Note ---
Date of Encounter: 01/16/18 Time of Encounter: 13:52 - Assessment and plan (1) Headache Current Visit: Yes Status: Resolved Assessment and plan: Resolved at this time. Continue to monitor. Qualifiers: Headache type: other headache syndrome Qualified Code(s): G44.89 - Other headache syndrome (2) Diabetes mellitus Current Visit: Yes Status: Chronic Assessment and plan: History of type II diabetes. A1C 4.5 FS acceptable Continue to monitor Qualifiers: Diabetes mellitus type: type 2 Diabetes mellitus correction insulin use: with correction use Diabetes mellitus complication status: with kidney complications Diabetes mellitus complication detail: with chronic kidney disease Chronic kidney disease stage: on chronic dialysis Qualified Code(s) : E11.22 - Type 2 diabetes mellitus with diabetic chronic kidney disease; N18.6 - End stage renal disease; Z79.4 - correction (current) use of insulin; Z99.2 - Dependence on renal dialysis (3) DVT prophylaxis Current Visit: Yes Status: Acute Assessment and plan: Heparin SQ (4) Anemia Current Visit: Yes Status: Chronic Assessment and plan: history of anemia-note macrocytosis on H/H. B12, folate WNL Hb stable Continue to monitor Qualifiers: Anemia type: unspecified type Qualified Code(s): D64.9 - Anemia, unspecified (5) ESRD (end stage renal disease) on dialysis Current Visit: Yes Status: Chronic Assessment and plan: HD per renal schedule Nephrology following (6) HCAP (healthcare-associated pneumonia) Current Visit: Yes Status: Suspected Assessment and plan: Suspected Patient recently hospitalized from 11/19- right great toe osteomyelitis, S/P great toe amputation. Patient only has symptoms of nonproductive cough. Patient is not meet sepsis criteria at this time. She also had SOB on arrival with new hypoxia CT showed by basilar lower lobe airspace disease, chest x-ray showed infiltrate within the medial right upper lobe. Continue Cefepime only, add levaquin for atypicals, discontinue vancomycin, blood culture is negative. (7) PAD (peripheral artery disease) Current Visit: Yes Status: Chronic Assessment and plan: chronic, stable (8) Essential hypertension Current Visit: Yes Status: Chronic Assessment and plan: Continue home medications (9) Status post below knee amputation of left lower extremity Current Visit: Yes Status: Chronic Assessment and plan: Stump is clean and dry (10) CAD in [place] artery Current Visit: Yes Status: Chronic Assessment and plan: Continue home medications (11) Troponin level elevated Current Visit: Yes Status: Acute Assessment and plan: Patient denies current chest pain. Mild troponin elevation, but is chronically elevated and has been elevated in the past. EKG showed sinus rhythm without any ischemic changes. Continue to monitor - Time Spent With Patient Total time spent is greater than 50% in coordination of care (as documented) at patient's floor/unit and/or counseling patient: - Subjective Interval history: Seen and examined with spouse at the bedside She is s/p HD They have no complains today Blood culture is negative and Vancomycin has been discontinued - Constitutional Vitals: Temp Pulse Resp BP Pulse Ox 97.8 F 64 16 160/68 100 01/16/18 11:46 01/16/18 11:46 01/16/18 11:46 01/16/18 11:46 01/16/18 10:53 General appearance: Present: A&O X 3, pleasant, no acute distress - Head Head exam: Present: atraumatic, normocephalic - Eye Eye exam: Present: PERRL, conjuntiva pink, sclera anicteric Pupils: Present: PERRL - Neck Neck exam general surgery: Present: supple, trachea midline. Absent: lymphadenopathy - Respiratory Respiratory exam: Present: CTAB. Absent: accessory muscle use, rales, rhonchi, wheezes - Cardiovascular Cardiovascular exam: Present: RRR, +S1, +S2. Absent: diastolic murmur, gallop, rubs, systolic murmur - GI/Abdominal GI/Abdominal exam: Present: normal bowel sounds, soft, no peritoneal signs. Absent: distended, tenderness - Extremities Exam Additional comments: L BKA, R big toe amputation, band aid on it, no obvious discharges no edema - Neurological Exam Neurological exam: Present: alert, CN II-XII intact, oriented X3, no focal deficits. Absent: pronater drift, facial droop, speech deficit - Skin Skin exam: Present: dry, intact Internal Medicine: Result - Labs CBC & Chem 7: 01/16/18 05:41 01/16/18 05:41 Labs: Short CBC 01/16/18 Range/Units 05:41 WBC 7.5 (4.3-11.1) K/mcL Hgb 12.5 (11.5-15.4) g/dL Hct 36.7 (35.3-44.9) % Plt Count 194 (140-400) K/mcL Neutrophils # 5.8 (1.6-8.9) K/mcL BMP 01/16/18 05:41 Sodium 138 Potassium 4.2 Chloride 100 Carbon Dioxide 27 BUN 35 H Creatinine 5.08 H Glucose 113 H Calcium 9.3 Consult Discharge Plan - Plan Referrals: Rudi Avila MD [Primary Care Provider] - (Please call appt. if patient is going home)
[2018-01-16] MEDS ORDERED: levoFLOXacin 750 MG TABLET PO ONE (14:31)
[2018-01-16] MEDS: Cefepime HCl 1,000 MG in Water for inj. (sterile) 20 ML 10 ML IVP SCH (15:02)
[2018-01-16] MEDS: Acetaminophen 325 MG TABLET PO PRN (20:39)
[2018-01-17] MEDS: *HR* Heparin 5,000 UNIT/ML VIAL SQ SCH ×2 (10:04→15:50)
[2018-01-17] MEDS: Aspirin Enteric Coated 81 MG Tablet PO SCH (10:21)
[2018-01-17] MEDS: Multivit/Ca/Min/Fe/FA 1 TAB TABLET PO SCH (10:21)
[2018-01-17] MEDS: Gabapentin 100 MG CAPSULE PO SCH ×2 (10:21→15:50)
--- NOTE | 2018-01-17 13:49 | Internal Med Progress Note ---
Date of Encounter: 01/17/18 Time of Encounter: 15:46 - Assessment and plan (1) Headache Current Visit: Yes Status: Resolved Assessment and plan: Resolved at this time. Continue to monitor. Qualifiers: Headache type: other headache syndrome Qualified Code(s): G44.89 - Other headache syndrome (2) Diabetes mellitus Current Visit: Yes Status: Chronic Assessment and plan: History of type II diabetes. A1C 4.5 FS acceptable Continue to monitor Qualifiers: Diabetes mellitus type: type 2 Diabetes mellitus assisted insulin use: with assisted use Diabetes mellitus complication status: with kidney complications Diabetes mellitus complication detail: with chronic kidney disease Chronic kidney disease stage: on chronic dialysis Qualified Code(s) : E11.22 - Type 2 diabetes mellitus with diabetic chronic kidney disease; N18.6 - End stage renal disease; Z79.4 - snf (current) use of insulin; Z99.2 - Dependence on renal dialysis (3) DVT prophylaxis Current Visit: Yes Status: Acute Assessment and plan: Heparin SQ (4) Anemia Current Visit: Yes Status: Chronic Assessment and plan: history of anemia-note macrocytosis on H/H. B12, folate WNL Hb stable Continue to monitor Qualifiers: Anemia type: unspecified type Qualified Code(s): D64.9 - Anemia, unspecified (5) ESRD (end stage renal disease) on dialysis Current Visit: Yes Status: Chronic Assessment and plan: HD per renal schedule Nephrology following (6) HCAP (healthcare-associated pneumonia) Current Visit: Yes Status: Suspected Assessment and plan: Suspected Patient recently hospitalized from 11/19- right great toe osteomyelitis, S/P great toe amputation. Patient only has symptoms of nonproductive cough. Patient is not meet sepsis criteria at this time. She also had SOB on arrival with new hypoxia CT showed by basilar lower lobe airspace disease, chest x-ray showed infiltrate within the medial right upper lobe. Continue Cefepime and levaquin (7) PAD (peripheral artery disease) Current Visit: Yes Status: Chronic Assessment and plan: chronic, stable (8) Essential hypertension Current Visit: Yes Status: Chronic Assessment and plan: Uncontrolled, add norvasc, continue metoprolol (9) Status post below knee amputation of left lower extremity Current Visit: Yes Status: Chronic Assessment and plan: Stump is clean and dry (10) CAD in [place] artery Current Visit: Yes Status: Chronic Assessment and plan: Continue home medications (11) Troponin level elevated Current Visit: Yes Status: Acute Assessment and plan: Patient denies current chest pain. Mild troponin elevation, but is chronically elevated and has been elevated in the past. EKG showed sinus rhythm without any ischemic changes. Continue to monitor (12) Confusion Current Visit: Yes Status: Acute Assessment and plan: Patient with very slow mentation, and RUE involuntary/tic movements, head CT negative No facial droop, speech is slow but overall coherent ABG showed PO2 68, SO2 94%, possibly mixed venous Will consult neurology - Time Spent With Patient Total time spent is greater than 50% in coordination of care (as documented) at patient's floor/unit and/or counseling patient: - Subjective Interval history: Seen and examined with spouse and sister at the bedside The patient is confused today, she is oriented to place and person but mentation is very slow Her R arm is also tremulous, with movements that look like tics., she is awake through the movements and conversing, seizure unlikely STAT head CT showed chronic microvascular changes, no acute finding ABG is pending - Constitutional Vitals: Temp Pulse Resp BP Pulse Ox 97.3 F L 74 18 183/69 100 01/17/18 10:41 01/17/18 10:41 01/17/18 10:41 01/17/18 10:41 01/17/18 10:41 General appearance: Present: A&O X 2, pleasant, no acute distress - Head Head exam: Present: atraumatic, normocephalic - Eye Eye exam: Present: PERRL, conjuntiva pink, sclera anicteric Pupils: Present: PERRL - Neck Neck exam general surgery: Present: supple, trachea midline. Absent: lymphadenopathy - Respiratory Respiratory exam: Present: CTAB. Absent: accessory muscle use, rales, rhonchi, wheezes - Cardiovascular Cardiovascular exam: Present: RRR, +S1, +S2. Absent: diastolic murmur, gallop, rubs, systolic murmur - GI/Abdominal GI/Abdominal exam: Present: normal bowel sounds, soft, no peritoneal signs. Absent: distended, tenderness - Extremities Exam Additional comments: s/p L BKA, s/p R big toe amputation, stumps clean and dry. Involuntary R U arm movements - Neurological Exam Neurological exam: Present: alert, CN II-XII intact, no focal deficits. Absent : oriented X3, pronater drift, facial droop, speech deficit - Skin Skin exam: Present: dry Internal Medicine: Result - Labs CBC & Chem 7: 01/16/18 05:41 01/16/18 05:41 Consult Discharge Plan - Plan Referrals: Rudi Avila MD [Primary Care Provider] - (Please call appt. if patient is going home)
[2018-01-17 15:46] LABS: ABG Base Excess 5 mEq/L (-2 to 3); ABG HCO3 30 mEq/L (21-27); ABG Oxygen Saturation 94 % (95-98); ABG PCO2 45 mmHg (35-45); ABG PH 7.43 pH Units (7.32-7.45); ABG PO2 68 mmHg (85-104); ABG TCO2 31 mEq/L (20-26)
[2018-01-17] MEDS: Cefepime HCl 1,000 MG in Water for inj. (sterile) 20 ML 10 ML IVP SCH (15:50)
--- NOTE | 2018-01-17 17:06 | Nephrology Progress Note ---
Date of Encounter: 01/17/18 Time of Encounter: 17:04 - Assessment and Plan (1) ESRD (end stage renal disease) on dialysis Current Visit: Yes Status: Chronic HD MWF. Renal vitamins. Renal dose medications. Renal diet. Additional dialysis and ultrafiltration as needed. . (2) Hypertension Current Visit: Yes Status: Acute Titrate her antihypertensive medications as needed. Qualifiers: Hypertension type: renovascular hypertension Qualified Code(s): I15.0 - Renovascular hypertension (3) Headache Current Visit: Yes Status: Resolved Per the primary team. . Qualifiers: Headache type: other headache syndrome Qualified Code(s): G44.89 - Other headache syndrome (4) T2DM (type 2 diabetes mellitus) Current Visit: No Status: Chronic Per the primary team. 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 No new complaint. She still has a headache. . Objective - Vital Signs Vital signs: Vital Signs Temp Pulse Resp BP Pulse Ox 01/17/18 16:29 98.4 F 74 16 152/71 95 01/17/18 10:41 97.3 F L 74 18 183/69 100 01/17/18 06:49 97.8 F 65 17 154/70 99 01/17/18 04:48 98.3 F 66 18 154/51 100 01/17/18 00:39 97.6 F 63 18 148/65 99 01/16/18 18:57 98.3 F 74 18 126/60 98 01/16/18 18:08 98.2 F 72 18 128/62 95 Intake and Output 01/17/18 01/17/18 01/17/18 07:59 15:59 23:59 Intake Total 360 / 360 Output Total 0 / 0 Balance 360 / 360 Intake: Oral 360 / 360 Output: Urine 0 / 0 Other: Meal Lunch Percent of Meal Consumed 55% Weight 69.4 kg Blood Glucose* 82 74 75 Patient Weight 01/17/18 23:59 Weight 69.4 kg - General Appearance General appearance: Present: well-developed, well-nourished EENT: Present: ATNC Cardiology: Present: regular rate Neurologic: Present: alert and oriented x3 Psychiatric: Present: mood/affect appropriate - Lab 01/16/18 05:41 01/16/18 05:41 Most recent lab results ABG pH 7.43 pH Units (7.32-7.45) 01/17/18 15:43 ABG pCO2 45 mmHg (35-45) 01/17/18 15:43 ABG pO2 68 mmHg (85-104) L 01/17/18 15:43 ABG HCO3 30 mEq/L (21-27) H 01/17/18 15:43 ABG O2 Saturation 94 % (95-98) L 01/17/18 15:43 Calcium 9.3 mg/dL (8.6-10.3) 01/16/18 05:41 Phosphorus 6.9 mg/dL (2.7-4.5) H 01/15/18 04:43 Magnesium 2.0 mg/dL (1.6-2.6) 01/15/18 04:43 Consult Discharge Plan - Plan Referrals: Rudi Avila MD [Primary Care Provider] - (Please call appt. if patient is going home)
[2018-01-17] MEDS: amLODIPine 5 MG TABLET PO SCH (17:13)
[2018-01-18] MEDS: Gabapentin 100 MG CAPSULE PO SCH ×4 (00:46→21:17)
[2018-01-18 05:01] LABS: Basophils # 0.1 K/mcL (0.0-0.2); Basophils % 0.5 %; Eosinophils # 0.2 K/mcL (0.0-0.6); Eosinophils % 2.6 %; Hematocrit 36.3 % (35.3-44.9); Hemoglobin 12.4 g/dL (11.5-15.4); Immature Granulocytes % 0.2 % (0-4); Lymphocytes % 11.1 %; Mean Corpuscular HGB Conc 34.2 g/dL (31.6-35.5); Mean Corpuscular Hemoglobin 35.2 pg (28.0-33.3); Mean Corpuscular Volume 103.1 fL (83.0-100.0); Mean Platelet Volume 10.1 fL (9.4-12.4); Monocytes # 0.7 K/mcL (0.0-1.3); Monocytes % 7.2 %; Neutrophils # 7.3 K/mcL (1.6-8.9); Platelet Count 167 K/mcL (140-400); Red Blood Count 3.52 M/mcL (3.82-4.97); Red Cell Distribution Width 15.6 % (11.5-14.5); Segmented Neutrophils % 78.4 %
[2018-01-18 05:22] LABS: Calcium 9.8 mg/dL (8.6-10.3); Potassium 4.7 mEq/L (3.5-5.1)
[2018-01-18] MEDS: *HR* Heparin 5,000 UNIT/ML VIAL SQ SCH ×2 (05:30→16:05)
[2018-01-18] MEDS ORDERED: 0.9 % Sodium Chloride 2,000 ML ONE (07:02)
[2018-01-18] MEDS ORDERED: 0.9 % Sodium Chloride 250 ML IVC PRN (07:59)
[2018-01-18] MEDS ORDERED: 0.9 % Sodium Chloride 1,000 ML PRIME SCH (08:00)
[2018-01-18] MEDS: Ondansetron 4 MG/2 ML VIAL IVP PRN (10:42)
--- NOTE | 2018-01-18 11:08 | Internal Med Progress Note ---
Date of Encounter: 01/18/18 Time of Encounter: 11:08 - Assessment and plan (1) Headache Current Visit: Yes Status: Resolved Assessment and plan: Resolved at this time. Continue to monitor. Qualifiers: Headache type: other headache syndrome Qualified Code(s): G44.89 - Other headache syndrome (2) Diabetes mellitus Current Visit: Yes Status: Chronic Assessment and plan: History of type II diabetes. A1C 4.5 FS acceptable Continue to monitor Qualifiers: Diabetes mellitus type: type 2 Diabetes mellitus mcfp insulin use: with mcfp use Diabetes mellitus complication status: with kidney complications Diabetes mellitus complication detail: with chronic kidney disease Chronic kidney disease stage: on chronic dialysis Qualified Code(s) : E11.22 - Type 2 diabetes mellitus with diabetic chronic kidney disease; N18.6 - End stage renal disease; Z79.4 - halfway (current) use of insulin; Z99.2 - Dependence on renal dialysis (3) DVT prophylaxis Current Visit: Yes Status: Acute Assessment and plan: Heparin SQ (4) Anemia Current Visit: Yes Status: Chronic Assessment and plan: history of anemia-note macrocytosis on H/H. B12, folate WNL Hb stable Continue to monitor Qualifiers: Anemia type: unspecified type Qualified Code(s): D64.9 - Anemia, unspecified (5) ESRD (end stage renal disease) on dialysis Current Visit: Yes Status: Chronic Assessment and plan: HD per renal schedule Nephrology following (6) HCAP (healthcare-associated pneumonia) Current Visit: Yes Status: Suspected Assessment and plan: Suspected Patient recently hospitalized from 11/19- right great toe osteomyelitis, S/P great toe amputation. Patient only has symptoms of nonproductive cough. Patient is not meet sepsis criteria at this time. She also had SOB on arrival with new hypoxia CT showed by basilar lower lobe airspace disease, chest x-ray showed infiltrate within the medial right upper lobe. Continue Cefepime and levaquin (7) PAD (peripheral artery disease) Current Visit: Yes Status: Chronic Assessment and plan: chronic, stable (8) Essential hypertension Current Visit: Yes Status: Chronic Assessment and plan: now controlled, continue norvasc and metoprolol (9) Status post below knee amputation of left lower extremity Current Visit: Yes Status: Chronic Assessment and plan: Stump is clean and dry (10) CAD in [place] artery Current Visit: Yes Status: Chronic Assessment and plan: Continue home medications (11) Troponin level elevated Current Visit: Yes Status: Acute Assessment and plan: Patient denies current chest pain. Mild troponin elevation, but is chronically elevated and has been elevated in the past. EKG showed sinus rhythm without any ischemic changes. Continue to monitor (12) Confusion Current Visit: Yes Status: Acute Assessment and plan: Patient with very slow mentation, and RUE involuntary/tic movements, head CT negative No facial droop, speech is slow but overall coherent ABG showed PO2 68, SO2 94%, possibly mixed venous Neurology consulted, will await and follow recommendations - Time Spent With Patient Total time spent is greater than 50% in coordination of care (as documented) at patient's floor/unit and/or counseling patient: - Subjective Interval history: Seen and examined during HD Still very slow mental response, but patient is able to state her name and location. She seems to be having receptive aphasia, neurology has been consulted and will see patient, her motor response is normal and she has no facial droop - Constitutional Vitals: Temp Pulse Resp BP Pulse Ox 98.0 F 70 16 126/61 96 01/18/18 07:40 01/18/18 07:40 01/18/18 07:40 01/18/18 07:40 01/18/18 07:40 General appearance: Present: A&O X 2 (very slow mental response), pleasant, no acute distress - Head Head exam: Present: atraumatic, normocephalic - Eye Eye exam: Present: PERRL, conjuntiva pink, sclera anicteric Pupils: Present: PERRL - Neck Neck exam general surgery: Present: supple, trachea midline. Absent: lymphadenopathy - Respiratory Respiratory exam: Present: CTAB. Absent: accessory muscle use, rales, rhonchi, wheezes - Cardiovascular Cardiovascular exam: Present: RRR, +S1, +S2. Absent: diastolic murmur, gallop, rubs, systolic murmur - GI/Abdominal GI/Abdominal exam: Present: normal bowel sounds, soft, no peritoneal signs. Absent: distended, tenderness - Extremities Exam Additional comments: s/p L BKA, s/p R big toe amputation - Neurological Exam Neurological exam: Present: alert, CN II-XII intact, no focal deficits. Absent : oriented X3, pronater drift, facial droop, speech deficit - Skin Skin exam: Present: dry, intact Internal Medicine: Result - Labs CBC & Chem 7: 01/18/18 04:26 01/18/18 04:26 Labs: Short CBC 01/18/18 Range/Units 04:26 WBC 9.3 (4.3-11.1) K/mcL Hgb 12.4 (11.5-15.4) g/dL Hct 36.3 (35.3-44.9) % Plt Count 167 (140-400) K/mcL Neutrophils # 7.3 (1.6-8.9) K/mcL BMP 01/18/18 04:26 Sodium 138 Potassium 4.7 Chloride 100 Carbon Dioxide 25 BUN 45 H Creatinine 6.28 H Glucose 83 Calcium 9.8 - ABG Interpretation ABG results: ABG ABG pH 7.43 pH Units (7.32-7.45) 01/17/18 15:43 ABG pCO2 45 mmHg (35-45) 01/17/18 15:43 ABG pO2 68 mmHg (85-104) L 01/17/18 15:43 ABG O2 Saturation 94 % (95-98) L 01/17/18 15:43 - Impressions Impressions Head CT 01/17/18 14:07 IMPRESSION: No acute intracranial abnormality. 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 D/ / Aletha Mejia MD / Aletha Mejia MD Interpreting Provider: Aletha Mejia MD Consult Discharge Plan - Plan Referrals: Rudi Avila MD [Primary Care Provider] - (Please call appt. if patient is going home)
[2018-01-18] MEDS: Aspirin Enteric Coated 81 MG Tablet PO SCH (12:41)
[2018-01-18] MEDS: Multivit/Ca/Min/Fe/FA 1 TAB TABLET PO SCH (12:42)
[2018-01-18] MEDS: amLODIPine 5 MG TABLET PO SCH (12:42)
--- NOTE | 2018-01-18 16:04 | Nephrology Progress Note ---
Date of Encounter: 01/18/18 Time of Encounter: 11:30 - Assessment and Plan (1) ESRD (end stage renal disease) on dialysis Current Visit: Yes Status: Chronic Continue HD with UF as tolerated Lytes WNL (2) Altered mental status Current Visit: No Status: Acute Discussed case with primary team and , agree with neurology evaluation Of note, pt is well dialyzed and not uremic Qualifiers: Altered mental status type: disorientation Qualified Code(s): R41.0 - Disorientation, unspecified Subjective Principal diagnosis: ESRD Interval history: Interim events noted. Pt seen and examined on HD minimally responsive with eyes open and staring ahead. Objective - Vital Signs Vital signs: Vital Signs Temp Pulse Resp BP Pulse Ox 01/18/18 15:51 98.7 F 84 15 145/70 94 01/18/18 12:41 97.4 F L 18 108/47 01/18/18 12:26 98.1 F 86 16 132/64 99 01/18/18 11:30 99/48 01/18/18 11:15 111/49 01/18/18 11:00 96/49 01/18/18 10:45 119/50 01/18/18 10:30 121/60 01/18/18 10:15 95/47 01/18/18 10:00 102/47 01/18/18 09:45 94/46 01/18/18 09:30 98/44 01/18/18 09:15 108/52 01/18/18 09:00 104/55 01/18/18 08:45 121/68 01/18/18 08:30 97.0 F L 16 160/71 01/18/18 07:40 98.0 F 70 16 126/61 96 01/18/18 05:20 98.5 F 70 16 133/65 93 01/17/18 23:24 97.7 F 69 16 128/63 92 01/17/18 20:43 98.7 F 79 16 148/69 94 01/17/18 16:29 98.4 F 74 16 152/71 95 Intake and Output 01/18/18 01/18/18 01/18/18 07:59 15:59 23:59 Intake Total 0 / 0 720 / 720 Output Total 0 / 0 2356 / 2356 Balance 0 / 0 -1636 / -1636 Intake: Oral 0 / 0 120 / 120 Intake, Rinseback and Flushes 600 / 600 Output: Urine 0 / 0 0 / 0 Total Dialysis (HD) Output 2356 / 2356 Other: Meal patient refused Percent of Meal Consumed 0% Weight 70 kg Blood Glucose* 74 91 Hemodialysis Net Fluid Removed 1756 (mL) Patient Weight 01/18/18 23:59 Weight 70 kg - General Appearance General appearance: Present: chronically ill EENT: Present: ATNC, mucous membranes moist Neck: Present: no JVD, supple Respiratory: Present: clear (ant bilat) Cardiology: Present: no edema, normal S1 Dialysis Vascular Access: Arteriovenous Fistula thrill: Yes bruit: Yes Gastrointestinal: Present: no tenderness, no guarding Integumentary: Present: warm and dry Additional Comments: minimally responsive to questions though wide awake Musculoskeletal: Present: no deformities Additional Comments: blunted affect - Lab 01/20/18 04:33 01/20/18 04:33 Most recent lab results ABG pH 7.43 pH Units (7.32-7.45) 01/17/18 15:43 ABG pCO2 45 mmHg (35-45) 01/17/18 15:43 ABG pO2 68 mmHg (85-104) L 01/17/18 15:43 ABG HCO3 30 mEq/L (21-27) H 01/17/18 15:43 ABG O2 Saturation 94 % (95-98) L 01/17/18 15:43 Calcium 9.8 mg/dL (8.6-10.3) 01/18/18 04:26 Phosphorus 6.9 mg/dL (2.7-4.5) H 01/15/18 04:43 Magnesium 2.0 mg/dL (1.6-2.6) 01/15/18 04:43 Consult Discharge Plan - Plan Referrals: Rudi Avila MD [Primary Care Provider] - (Please call appt. if patient is going home)
[2018-01-18] MEDS: Cefepime HCl 1,000 MG in Water for inj. (sterile) 20 ML 10 ML IVP SCH (16:06)
[2018-01-18] MEDS: levoFLOXacin 500 MG TABLET PO SCH (16:16)
--- NOTE | 2018-01-18 17:33 | Neurology - Consult Note ---
Date of Encounter: 01/18/18 Time of Encounter: 17:29 Assessment and Plan (1) Altered mental status Current Visit: No Status: Acute Given this patient's history of multiple stroke risk factors which include malignant hypertension, and diabetes mellitus, I am very concerned about the possibility of a right hemispheric cerebral infarct. She does seem to have a left hemianopsia. She is also left-handed. She seems to have expressive and receptive aphasia. The initial CT scan of the brain revealed chronic left lacunar infarcts however did not reveal evidence of an acute infarct. I would like to get an MRI scan of the brain with diffusion imaging, we will also like to obtain carotid Doppler studies and echocardiogram. For now recommend maintaining aspirin and Plavix. Stroke protocol orders should be implemented. I will reevaluate her tomorrow. Qualifiers: Altered mental status type: disorientation Qualified Code(s): R41.0 - Disorientation, unspecified History of Present Illness HPI: The chart was reviewed, the patient was seen and examined. Multiple family members are present. Mrs. Eng is a 72-year-old woman with a past medical history of previous cerebral vascular accident, diabetes, end-stage renal disease on dialysis and labile hypertension who is seen for neurologic evaluation secondary to confusion and random myoclonic movements of the right upper and left upper extremities. Her gives most of the history as the patient has difficulty with speech. He informs me that as of late she has been having a difficult time with her dialysis treatment, and she has been experiencing headaches more frequently after the treatments. With her last treatment which was on 01/15/2018 she had a headache tremendous enough to request that she go to the ED. She was increasingly confused upon presentation and was admitted. Patient was reportedly very "sleepy and drowsy upon admission. Her blood pressures have been labile since admission as high as 211/ 82 then within the hour going down to 132/58. The family mentions that the myoclonic movements are improved today. Although she is awake and alert she has difficulty with receptive and expressive aphasia. She is left-handed. I did review CT scan of the head which does reveal some atrophy of the brainstem and cerebellum. There is also a very large left internal capsule lacunar infarct, also spread into the left basal ganglia. She has significant periventricular white matter ischemic changes present. Past Med Surg Social Fam HX - Past Medical History Medical history: coronary artery disease, diabetes, dialysis, hyperlipidemia, hypertension, renal disease, other Additional medical history: hemodialysis Psychiatric history: anxiety, depression - Past Surgical History Surgical History: carotid endarterectomy, hysterectomy, orthopedic, other, thyroidectomy, other (amputation left leg) Additional surgical history: LBKA, right digits removed - Social History Smoking Status: Never smoker Smokeless Tobacco Status: No Alcohol use: none Drug use: none - Family History Mother Adopted: No Family Member Ethnicity: Non- Living Status: Hx Family Cardiac Disorders: No Hx Family Respiratory Disorders: Yes Hx Family Cancer: Yes Hx Family GI Disorders: No Hx Family Endocrine Disorder: No Hx Family Neuromuscular Disorders: No Hx Family Neurologic Disorders: No Hx Family HEENT Disorders: No Hx Family Autoimmune Disorders: No Father Adopted: No Family Member Ethnicity: Non- Living Status: Hx Family Cardiac Disorders: Yes Hx Family Respiratory Disorders: Yes Hx Family Cancer: No Hx Family GI Disorders: No Hx Family Endocrine Disorder: Yes Hx Family Neuromuscular Disorders: No Hx Family Neurologic Disorders: Yes Hx Family HEENT Disorders: No Hx Family Autoimmune Disorders: No Medications and Allergies Lidocaine/Prilocaine [Emla] 1 appl TP ONCE PRN 10/09/16 [History] Clopidogrel [Plavix] 75 mg PO DAILY tablet 10/16/16 [Rx] DiphenhydraMINE [Benadryl] 25 mg PO HS PRN #10 02/05/17 [Rx] Citalopram [CeleXA] 20 mg PO DAILY 03/30/17 [History] Metoprolol [Lopressor] 25 mg PO BID 03/30/17 [History] Multivitamin [Multivitamins] 1 cap PO DAILY 09/03/17 [History] Acetaminophen [Tylenol] 650 mg PO Q6HR PRN #30 tablet 09/10/17 [Rx] Gabapentin [Neurontin] 100 mg PO TID #15 capsule 09/21/17 [Rx] 3 Allergy/AdvReac Type Severity Reaction Status Date / Time Penicillins Allergy Hives Verified 01/15/18 09:23 ROS unobtainable: due to mental status All Systems: The remainder of the systems were reviewed and are negative Physical Examination - Vital Signs Vital Signs: Initial Vital Signs Temp Pulse Resp BP Pulse Ox 97.8 F 84 16 211/82 95 01/14/18 21:57 01/14/18 21:57 01/14/18 21:57 01/14/18 21:57 01/14/18 21:57 - Exam Exam: Neurologic examination is performed and finds the following. Cerebral functions-she is awake and alert. She follows some commands however has difficulty with others. She her she is able to talk slowly and her speech is not fluent. She is able to recognize her but again it takes her quite some time to actually verbally inform me exactly who we his. She has a component of receptive and expressive aphasia. She is not lethargic at this time. She does seem to have a bit of left hemianopsia. Cranial nerves-pupils are equal and reactive to light and accommodation, extraocular motility seems to be intact. She does however seem to have a left hemianopsia. Facial sensation is difficult to assess in the patient who is aphasic. Her speech is broken and not fluent. Motor exam finds no focal deficits in strength of the upper extremities. She does have random myoclonic jerks of both upper extremities. She is able to move the right foot and leg. She has a left BKA amputation. Sensory exam-difficult to assess in a patient who has aphasia. Cerebellar exam-no nystagmus or opsoclonus are present. She has difficulty understanding the command of performing finger to nose. Deep tendon reflexes-2 symmetrically of the biceps triceps and brachial radialis. The right patellar reflex is absent as is the right Achilles reflex. No Babinski. Results - Laboratory Findings CBC and BMP: 01/18/18 04:26 01/18/18 04:26 Abnormal lab findings: Abnormal lab results RBC 3.52 M/mcL (3.82-4.97) L 01/18/18 04:26 MCV 103.1 fL (83.0-100.0) H 01/18/18 04:26 MCH 35.2 pg (28.0-33.3) H 01/18/18 04:26 RDW 15.6 % (11.5-14.5) H 01/18/18 04:26 ABG pO2 68 mmHg (85-104) L 01/17/18 15:43 ABG HCO3 30 mEq/L (21-27) H 01/17/18 15:43 ABG Total CO2 31 mEq/L (20-26) H 01/17/18 15:43 ABG O2 Saturation 94 % (95-98) L 01/17/18 15:43 ABG Base Excess 5 mEq/L (-2 to 3) H 01/17/18 15:43 VBG pCO2 61 mmHg (41-51) H 01/15/18 04:57 VBG pO2 90 mmHg (25-50) H 01/15/18 04:57 VBG HCO3 34 mEq/L (21-27) H 01/15/18 04:57 BUN 45 mg/dL (8-23) H 01/18/18 04:26 Creatinine 6.28 mg/dL (0.60-1.20) H 01/18/18 04:26 Est GFR ( Amer) 8 (> 60) L 01/18/18 04:26 Est GFR (Non-Af Amer) 7 (> 60) L 01/18/18 04:26 Phosphorus 6.9 mg/dL (2.7-4.5) H 01/15/18 04:43 Folate > 22.3 ng/mL (3.0-16.0) H 01/15/18 06:46 Consult Discharge Plan - Plan Referrals: Rudi Avila MD [Primary Care Provider] - (Please call appt. if patient is going home)
--- NOTE | 2018-01-18 21:20 | Event Note ---
Date of Encounter: 01/18/18 Time of Encounter: 21:10 MRI resulted. The patient and family requested they know the results of exam tonight. The patient MRI showed moderate chronic white matter microvascular ischemic changes and remote lacunar infarcts in the left basal ganglia and bilat cerebellar hemispheres. The report indicated no acute findings. As I was speaking with the patient she began to have expressive aphasia, with some garbled speech. The family indicated that these were the same symptoms/episodes the patient has been displaying intermittently for the past 3 days. I asked the patient where she was and she said "[place]" but she was unsure what kind of building she was in. Then when I asked her the year, she could not remember. I asked her if she knew it in her head and could not say it or just couldn't remember it, and she indicated that she couldn't recall it. Neurology on board. Carotid US and Echo scheduled for am. Will continue with [facility].
[2018-01-19] MEDS: *HR* Heparin 5,000 UNIT/ML VIAL SQ SCH ×2 (06:27→17:06)
[2018-01-19] MEDS: Multivit/Ca/Min/Fe/FA 1 TAB TABLET PO SCH (08:56)
[2018-01-19] MEDS: amLODIPine 5 MG TABLET PO SCH (08:56)
[2018-01-19] MEDS: Gabapentin 100 MG CAPSULE PO SCH ×2 (08:56→12:00)
[2018-01-19] MEDS: Aspirin Enteric Coated 81 MG Tablet PO SCH (08:57)
--- NOTE | 2018-01-19 10:26 | Neurology Progress Note ---
Date of Encounter: 01/19/18 Time of Encounter: 10:24 Assessment and Plan (1) Altered mental status Current Visit: No Status: Acute At this juncture I still do not have a specific proven etiology for her mental status changes. Her mental status is somewhat better today however not back to baseline. It may all be due to hypertensive encephalopathy. However I would like to complete a lumbar puncture today to rule out the possibility of herpes encephalitis. I would also like to obtain MRA scan of the brain to rule out the possibility of central nervous system vasculitis. If she is not better after test results, and test results are inconclusive then I would consider transfer to a tertiary care facility. Qualifiers: Altered mental status type: disorientation Qualified Code(s): R41.0 - Disorientation, unspecified Subjective Principal diagnosis: ESRD Interval history: The chart was reviewed, the patient was seen and examined. Patient's sister and daughter are present in the room today. MRI scan of the brain was completed last night. Reaffirms the CT scan findings. There is some cerebellar atrophy also evidence of an old left lacunar infarct significant periventricular white matter changes. However there is no evidence of an acute infarct. Patient this morning was a bit more awake and alert. Her speech is more fluent. However, she remains confused. She denies headache this morning. Vital signs are stable, she is afebrile. Objective - Constitutional Vitals: Temp Pulse Resp BP Pulse Ox 98 F 77 17 112/60 92 01/19/18 07:32 01/19/18 07:32 01/19/18 07:32 01/19/18 07:32 01/19/18 09:31 - Neurological Exam Motor Examination: Present: other (I see no focal or lateralized deficits. However she seems to have some element of ataxia of the right upper extremity. But she has normal tone in both upper extremities. There are no involuntary movements identified today.) Mental Status Examination: Present: awake, alert, oriented to person. Absent: oriented to place, oriented to time Cranial nerve examination: Present: PERRL, EOMI, corneal reflexes brisk symmetrically, sensory to face intact, mastication intact, no facial asymmetry is present, no dysarthria Additional comments: Patient follows some commands appropriately however not all. She does make eye contact, her mental status is improved today. However not back to her normal baseline. Results - Laboratory Findings CBC and BMP: 01/18/18 04:26 01/18/18 04:26 Abnormal lab findings: Abnormal lab results RBC 3.52 M/mcL (3.82-4.97) L 01/18/18 04:26 MCV 103.1 fL (83.0-100.0) H 01/18/18 04:26 MCH 35.2 pg (28.0-33.3) H 01/18/18 04:26 RDW 15.6 % (11.5-14.5) H 01/18/18 04:26 ABG pO2 68 mmHg (85-104) L 01/17/18 15:43 ABG HCO3 30 mEq/L (21-27) H 01/17/18 15:43 ABG Total CO2 31 mEq/L (20-26) H 01/17/18 15:43 ABG O2 Saturation 94 % (95-98) L 01/17/18 15:43 ABG Base Excess 5 mEq/L (-2 to 3) H 01/17/18 15:43 VBG pCO2 61 mmHg (41-51) H 01/15/18 04:57 VBG pO2 90 mmHg (25-50) H 01/15/18 04:57 VBG HCO3 34 mEq/L (21-27) H 01/15/18 04:57 BUN 45 mg/dL (8-23) H 01/18/18 04:26 Creatinine 6.28 mg/dL (0.60-1.20) H 01/18/18 04:26 Est GFR ( Amer) 8 (> 60) L 01/18/18 04:26 Est GFR (Non-Af Amer) 7 (> 60) L 01/18/18 04:26 Phosphorus 6.9 mg/dL (2.7-4.5) H 01/15/18 04:43 Folate > 22.3 ng/mL (3.0-16.0) H 01/15/18 06:46 Consult Discharge Plan - Plan Referrals: Rudi Avila MD [Primary Care Provider] - (Please call appt. if patient is going home)
--- NOTE | 2018-01-19 10:41 | Nephrology Progress Note ---
Date of Encounter: 01/19/18 Time of Encounter: 12:00 - Assessment and Plan (1) ESRD (end stage renal disease) on dialysis Current Visit: Yes Status: Chronic Next HD planned for sunday WNL Continue renal diet if able (2) Altered mental status Current Visit: No Status: Acute Appreciate neurology recs, MRA today planned. Lumbar puncture unsuccessful Of note, pt is well dialyzed and not uremic Qualifiers: Altered mental status type: disorientation Qualified Code(s): R41.0 - Disorientation, unspecified Subjective Principal diagnosis: ESRD Interval history: Interim events noted. Pt seen and examined with family at bedside sleeping and not easily arousable. Awakes up to painful stimuli but falls back asleep quickly. Per family, pt may have received gabapentin last night and this am. BP ranging from 90s to 160s systolic in the past 24hrs. MRI results noted Objective - Vital Signs Vital signs: Vital Signs Temp Pulse Resp BP Pulse Ox 01/19/18 09:31 92 01/19/18 07:32 98 F 77 17 112/60 92 01/19/18 02:55 98.5 F 72 17 160/70 92 01/18/18 23:39 98.7 F 71 16 161/68 93 01/18/18 20:16 99 F 77 16 152/71 92 01/18/18 15:51 98.7 F 84 15 145/70 94 01/18/18 12:41 97.4 F L 18 108/47 01/18/18 12:26 98.1 F 86 16 132/64 99 01/18/18 11:30 99/48 01/18/18 11:15 111/49 01/18/18 11:00 96/49 01/18/18 10:45 119/50 Intake and Output 01/18/18 01/19/18 01/19/18 23:59 07:59 15:59 Intake Total 240 / 240 Balance 240 / 240 Intake: IV Fluids Maxipime 1,000 MG In Water for inj. (sterile) 10 ML @ 300 mls/ hr IVP Q24H [facility] Rx#:[id number] Oral 240 / 240 Other: # Urine Diapers 1 Weight 68.9 kg Blood Glucose* 88 101 Patient Weight 01/19/18 23:59 Weight 68.9 kg - General Appearance General appearance: Present: chronically ill EENT: Present: ATNC, mucous membranes moist Neck: Present: no JVD, supple Respiratory: Present: clear (ant bilat) Cardiology: Present: no edema, normal S1, normal S2 Dialysis Vascular Access: Arteriovenous Fistula thrill: Yes bruit: Yes Gastrointestinal: Present: no tenderness, no guarding Integumentary: Present: warm and dry Neurologic: Present: confused, disoriented Musculoskeletal: Present: no deformities Psychiatric: Present: cooperative - Lab 01/20/18 04:33 01/20/18 04:33 Most recent lab results ABG pH 7.43 pH Units (7.32-7.45) 01/17/18 15:43 ABG pCO2 45 mmHg (35-45) 01/17/18 15:43 ABG pO2 68 mmHg (85-104) L 01/17/18 15:43 ABG HCO3 30 mEq/L (21-27) H 01/17/18 15:43 ABG O2 Saturation 94 % (95-98) L 01/17/18 15:43 Calcium 9.8 mg/dL (8.6-10.3) 01/18/18 04:26 Phosphorus 6.9 mg/dL (2.7-4.5) H 01/15/18 04:43 Magnesium 2.0 mg/dL (1.6-2.6) 01/15/18 04:43 Consult Discharge Plan - Plan Referrals: Rudi Avila MD [Primary Care Provider] - (Please call appt. if patient is going home)
--- NOTE | 2018-01-19 11:04 | Internal Med Progress Note ---
Date of Encounter: 01/19/18 Time of Encounter: 12:43 - Assessment and plan (1) Headache Current Visit: Yes Status: Resolved Assessment and plan: Resolved at this time. Continue to monitor. Qualifiers: Headache type: other headache syndrome Qualified Code(s): G44.89 - Other headache syndrome (2) Diabetes mellitus Current Visit: Yes Status: Chronic Assessment and plan: History of type II diabetes. A1C 4.5 FS acceptable Continue to monitor Qualifiers: Diabetes mellitus type: type 2 Diabetes mellitus fci insulin use: with fci use Diabetes mellitus complication status: with kidney complications Diabetes mellitus complication detail: with chronic kidney disease Chronic kidney disease stage: on chronic dialysis Qualified Code(s) : E11.22 - Type 2 diabetes mellitus with diabetic chronic kidney disease; N18.6 - End stage renal disease; Z79.4 - skilled nursing (current) use of insulin; Z99.2 - Dependence on renal dialysis (3) DVT prophylaxis Current Visit: Yes Status: Acute Assessment and plan: Heparin SQ (4) Anemia Current Visit: Yes Status: Chronic Assessment and plan: history of anemia-note macrocytosis on H/H. B12, folate WNL Hb stable Continue to monitor Qualifiers: Anemia type: unspecified type Qualified Code(s): D64.9 - Anemia, unspecified (5) ESRD (end stage renal disease) on dialysis Current Visit: Yes Status: Chronic Assessment and plan: HD per renal schedule Nephrology following (6) HCAP (healthcare-associated pneumonia) Current Visit: Yes Status: Suspected Assessment and plan: Suspected Patient recently hospitalized from 11/19- right great toe osteomyelitis, S/P great toe amputation. Patient only has symptoms of nonproductive cough. Patient is not meet sepsis criteria at this time. She also had SOB on arrival with new hypoxia CT showed by basilar lower lobe airspace disease, chest x-ray showed infiltrate within the medial right upper lobe. Continue Cefepime Day 4, and levaquin day 1 (7) PAD (peripheral artery disease) Current Visit: Yes Status: Chronic Assessment and plan: chronic, stable (8) Essential hypertension Current Visit: Yes Status: Chronic Assessment and plan: now controlled, continue norvasc and metoprolol (9) Status post below knee amputation of left lower extremity Current Visit: Yes Status: Chronic Assessment and plan: Stump is clean and dry (10) CAD in [place] artery Current Visit: Yes Status: Chronic Assessment and plan: Continue home medications (11) Troponin level elevated Current Visit: Yes Status: Acute Assessment and plan: Patient denies current chest pain. Mild troponin elevation, but is chronically elevated and has been elevated in the past. EKG showed sinus rhythm without any ischemic changes. Continue to monitor (12) Confusion Current Visit: Yes Status: Acute Assessment and plan: Patient with very slow mentation, and RUE involuntary/tic movements, head CT negative No facial droop, speech is slow but overall coherent ABG showed PO2 68, SO2 94%, possibly mixed venous Neurology consulted, following Brain MRI showed chronic microvascular calcifications and remote lacunar infarcts MRA ordered by neurologust to r/o vasculitis Patient is clinically improved this a.m She may have had HTN encephalopathy, will continue to follow - Time Spent With Patient Total time spent is greater than 50% in coordination of care (as documented) at patient's floor/unit and/or counseling patient: - Subjective Interval history: Seen and examined during HD Her mental status is improving slowly She still has some form of receptive aphasia Brain MRI is negative LP not done by IR due to use of Plavix Neurology is following Family requests holding Gabapentin, as they believe this is the cause of her mentation changes MRA requested by Neuro to r/o vasculitis, Carotid Doppler USS is done, official report pending - Constitutional Vitals: Temp Pulse Resp BP Pulse Ox 98 F 77 17 112/60 92 01/19/18 07:32 01/19/18 07:32 01/19/18 07:32 01/19/18 07:32 01/19/18 09:31 General appearance: Present: A&O X 2, pleasant, no acute distress - Head Head exam: Present: atraumatic, normocephalic - Eye Eye exam: Present: PERRL, conjuntiva pink, sclera anicteric Pupils: Present: PERRL - Neck Neck exam general surgery: Present: supple, trachea midline. Absent: lymphadenopathy Additional comments: R caotid bruit - Respiratory Respiratory exam: Present: CTAB. Absent: accessory muscle use, rales, rhonchi, wheezes - Cardiovascular Cardiovascular exam: Present: RRR, +S1, +S2. Absent: diastolic murmur, gallop, rubs, systolic murmur - GI/Abdominal GI/Abdominal exam: Present: normal bowel sounds, soft, no peritoneal signs. Absent: distended, tenderness - Extremities Exam Extremities exam: Present: warm, radial pulses palpable and symmetrical. Absent : calf tenderness, cyanotic, pedal edema Additional comments: s/p L BKA, s/p R big toe amputation - Neurological Exam Neurological exam: Present: alert, CN II-XII intact, oriented X3, no focal deficits. Absent: pronater drift, facial droop, speech deficit - Skin Skin exam: Present: dry, intact Internal Medicine: Result - Labs CBC & Chem 7: 01/18/18 04:26 01/18/18 04:26 - ABG Interpretation ABG results: ABG ABG pH 7.43 pH Units (7.32-7.45) 01/17/18 15:43 ABG pCO2 45 mmHg (35-45) 01/17/18 15:43 ABG pO2 68 mmHg (85-104) L 01/17/18 15:43 ABG O2 Saturation 94 % (95-98) L 01/17/18 15:43 - Impressions Impressions Brain MRI 01/18/18 17:43 IMPRESSION: 1. Motion limited evaluation. 2. No acute intracranial abnormality. 3. Moderate chronic white matter microvascular ischemic changes. 4. Remote lacunar infarcts in the left basal ganglia and bilateral cerebellar hemispheres. D/ / Agustin eSpulveda / Agustin Sepulveda Interpreting Provider: Agustin Sepulveda Consult Discharge Plan - Plan Referrals: Rudi Avila MD [Primary Care Provider] - (Please call appt. if patient is going home)
--- NOTE | 2018-01-19 11:39 | Event Note ---
Date of Encounter: 01/19/18 Time of Encounter: 11:37 This is a procedure note for a failed lumbar puncture. Preop diagnosis confusion and right-sided weakness rule out herpes encephalitis, rule out central nervous system vasculitis. Patient was placed in the upright sitting position and prepped and draped in the normal sterile fashion. Landmarks were assessed and localized to the L3-L4 interspace. The L3-L4 interspace was anesthetized with 1% lidocaine and a 20- gauge spinal needle was introduced. Several attempts were made unsuccessfully at this level. Landmarks were again reassessed and localized to the L4-L5 disc interspace. The L4-L5 disc interspace was anesthetized with 1% lidocaine and a 20-gauge spinal needle was introduced. Several attempts were made at this level. The patient does have significant bony change in the lumbar spine associated with her age. The spinal needle was then removed and hemostasis was achieved. I will attempt to request radiology to perform the procedure under fluoroscopy. Labs I would like to request on the CSF would be protein, glucose, cell count with differential, Gram stain with culture and sensitivity. I will also request to save some of the specimen for future testing. Further recommendations will be made upon test results. Case was discussed with the hospitalist. Interventional radiologist declined to do the study. I will obtain a MRA scan of the brain. To assess for vasculitis.
[2018-01-19] MEDS: Cefepime HCl 1,000 MG in Water for inj. (sterile) 20 ML 10 ML IVP SCH (16:58)
[2018-01-20 05:08] LABS: Basophils # 0.1 K/mcL (0.0-0.2); Basophils % 0.8 %; Eosinophils # 0.3 K/mcL (0.0-0.6); Eosinophils % 3.7 %; Hematocrit 38.7 % (35.3-44.9); Hemoglobin 12.6 g/dL (11.5-15.4); Immature Granulocytes % 0.2 % (0-4); Lymphocytes # 1.2 K/mcL (0.6-4.6); Lymphocytes % 13.7 %; Mean Corpuscular HGB Conc 32.6 g/dL (31.6-35.5); Mean Corpuscular Hemoglobin 33.7 pg (28.0-33.3); Mean Corpuscular Volume 103.5 fL (83.0-100.0); Mean Platelet Volume 10.4 fL (9.4-12.4); Monocytes # 0.8 K/mcL (0.0-1.3); Monocytes % 9.2 %; Neutrophils # 6.4 K/mcL (1.6-8.9); Platelet Count 164 K/mcL (140-400); Red Blood Count 3.74 M/mcL (3.82-4.97); Red Cell Distribution Width 15.2 % (11.5-14.5); Segmented Neutrophils % 72.4 %
[2018-01-20 05:23] LABS: Calcium 10.1 mg/dL (8.6-10.3); Potassium 4.3 mEq/L (3.5-5.1)
[2018-01-20] MEDS: *HR* Heparin 5,000 UNIT/ML VIAL SQ SCH ×2 (06:16→18:18)
[2018-01-20] MEDS: amLODIPine 5 MG TABLET PO SCH (10:16)
[2018-01-20] MEDS: Aspirin Enteric Coated 81 MG Tablet PO SCH (10:16)
[2018-01-20] MEDS: Multivit/Ca/Min/Fe/FA 1 TAB TABLET PO SCH (10:17)
--- NOTE | 2018-01-20 11:03 | Nephrology Progress Note ---
Date of Encounter: 01/20/18 Time of Encounter: 12:00 - Assessment and Plan (1) ESRD (end stage renal disease) on dialysis Current Visit: Yes Status: Chronic Next HD planned for sunday WNL Continue renal diet if able (2) Altered mental status Current Visit: No Status: Acute Appreciate neurology recs, MRA results noted. Lumbar puncture unsuccessful. More awake, perhaps etiology medication (gabapentin) induced? Of note, pt is well dialyzed and not uremic Qualifiers: Altered mental status type: disorientation Qualified Code(s): R41.0 - Disorientation, unspecified Subjective Principal diagnosis: ESRD Interval history: Interim events noted. Pt seen and examined Objective - Vital Signs Vital signs: Vital Signs Temp Pulse Resp BP Pulse Ox 01/20/18 10:27 94 01/20/18 07:26 97.7 F 66 16 151/71 94 01/20/18 04:45 98.2 F 70 16 138/58 96 01/20/18 01:09 97.2 F L 61 16 126/64 92 01/20/18 00:00 92 01/19/18 20:56 98.1 F 70 18 115/71 95 01/19/18 15:40 97.9 F 67 17 118/65 93 01/19/18 11:03 98.7 F 68 17 108/56 94 Intake and Output 01/19/18 01/20/18 01/20/18 23:59 07:59 15:59 Intake Total 240 / 240 Balance 240 / 240 Intake: IV Fluids Maxipime 1,000 MG In Water for inj. (sterile) 10 ML @ 300 mls/ hr IVP Q24H [facility] Rx#:[id number] Oral 240 / 240 Other: Meal Dinner Percent of Meal Consumed 20% Blood Glucose* 190 84 - Lab 01/20/18 04:33 01/20/18 04:33 Most recent lab results ABG pH 7.43 pH Units (7.32-7.45) 01/17/18 15:43 ABG pCO2 45 mmHg (35-45) 01/17/18 15:43 ABG pO2 68 mmHg (85-104) L 01/17/18 15:43 ABG HCO3 30 mEq/L (21-27) H 01/17/18 15:43 ABG O2 Saturation 94 % (95-98) L 01/17/18 15:43 Calcium 10.1 mg/dL (8.6-10.3) 01/20/18 04:33 Phosphorus 6.9 mg/dL (2.7-4.5) H 01/15/18 04:43 Magnesium 2.0 mg/dL (1.6-2.6) 01/15/18 04:43 Consult Discharge Plan - Plan Referrals: Rudi Avila MD [Primary Care Provider] - (Please call appt. if patient is going home)
--- NOTE | 2018-01-20 12:11 | Internal Med Progress Note ---
Date of Encounter: 01/20/18 Time of Encounter: 12:09 - Assessment and plan (1) Headache Current Visit: Yes Status: Resolved Assessment and plan: Resolved at this time. Continue to monitor. Qualifiers: Headache type: other headache syndrome Qualified Code(s): G44.89 - Other headache syndrome (2) Diabetes mellitus Current Visit: Yes Status: Chronic Assessment and plan: History of type II diabetes. A1C 4.5 FS acceptable Continue to monitor Qualifiers: Diabetes mellitus type: type 2 Diabetes mellitus longterm insulin use: with longterm use Diabetes mellitus complication status: with kidney complications Diabetes mellitus complication detail: with chronic kidney disease Chronic kidney disease stage: on chronic dialysis Qualified Code(s) : E11.22 - Type 2 diabetes mellitus with diabetic chronic kidney disease; N18.6 - End stage renal disease; Z79.4 - residential (current) use of insulin; Z99.2 - Dependence on renal dialysis (3) DVT prophylaxis Current Visit: Yes Status: Acute Assessment and plan: Heparin SQ (4) Anemia Current Visit: Yes Status: Chronic Assessment and plan: history of anemia-note macrocytosis on H/H. B12, folate WNL Hb stable Continue to monitor Qualifiers: Anemia type: unspecified type Qualified Code(s): D64.9 - Anemia, unspecified (5) ESRD (end stage renal disease) on dialysis Current Visit: Yes Status: Chronic Assessment and plan: HD per renal schedule Nephrology following (6) HCAP (healthcare-associated pneumonia) Current Visit: Yes Status: Suspected Assessment and plan: Suspected Patient recently hospitalized from 11/19- right great toe osteomyelitis, S/P great toe amputation. Patient only has symptoms of nonproductive cough. Patient is not meet sepsis criteria at this time. She also had SOB on arrival with new hypoxia CT showed by basilar lower lobe airspace disease, chest x-ray showed infiltrate within the medial right upper lobe. Continue Cefepime Day 5, and levaquin day 2 (7) PAD (peripheral artery disease) Current Visit: Yes Status: Chronic Assessment and plan: chronic, stable (8) Essential hypertension Current Visit: Yes Status: Chronic Assessment and plan: now controlled, continue norvasc and metoprolol (9) Status post below knee amputation of left lower extremity Current Visit: Yes Status: Chronic Assessment and plan: Stump is clean and dry (10) CAD in [place] artery Current Visit: Yes Status: Chronic Assessment and plan: Continue home medications (11) Troponin level elevated Current Visit: Yes Status: Acute Assessment and plan: Patient denies current chest pain. Mild troponin elevation, but is chronically elevated and has been elevated in the past. EKG showed sinus rhythm without any ischemic changes. Continue to monitor (12) Confusion Current Visit: Yes Status: Acute Assessment and plan: Patient with very slow mentation, and RUE involuntary/tic movements, head CT negative No facial droop, speech is slow but overall coherent ABG showed PO2 68, SO2 94%, possibly mixed venous Neurology consulted, following Brain MRI showed chronic microvascular calcifications and remote lacunar infarcts MRA ordered by neurologust to r/o vasculitis, shows infudnibulum, vs 2mm aneurysm, She may have had HTN encephalopathy, will continue to follow Carotid report noted, will consult vascular surgery - Time Spent With Patient Total time spent is greater than 50% in coordination of care (as documented) at patient's floor/unit and/or counseling patient: - Subjective Interval history: Seen and examined at bedside Her mental status continues to improve, however patient still has some confusion She has no slurred speech, no facial droop, no motor weakness Brain MRI is negative LP not done by IR due to use of Plavix Neurology is following MRA requested by Neuro to r/o vasculitis, showed 2mm outpouchng, possible infundibulum, vs aneurysm, Carotid Doppler USS is done, preliminary reports showed 60-79% stenosis n JOVANNY with high velocity, highly irregular heterogenous plaque Will consult vascular surgery Continue other current management - Constitutional Vitals: Temp Pulse Resp BP Pulse Ox 98.2 F 63 19 122/67 100 01/20/18 11:41 01/20/18 11:41 01/20/18 11:41 01/20/18 11:41 01/20/18 11:41 General appearance: Present: A&O X 2, pleasant, no acute distress - Head Head exam: Present: atraumatic, normocephalic - Eye Eye exam: Present: PERRL, conjuntiva pink, sclera anicteric Pupils: Present: PERRL - Neck Neck exam general surgery: Present: supple, trachea midline. Absent: lymphadenopathy - Respiratory Respiratory exam: Present: CTAB. Absent: accessory muscle use, rales, rhonchi, wheezes - Cardiovascular Cardiovascular exam: Present: RRR, +S1, +S2. Absent: diastolic murmur, gallop, rubs, systolic murmur - GI/Abdominal GI/Abdominal exam: Present: normal bowel sounds, soft, no peritoneal signs. Absent: distended, tenderness - Extremities Exam Extremities exam: Present: warm, radial pulses palpable and symmetrical. Absent : calf tenderness, cyanotic, pedal edema Additional comments: s/p L BKA, s/p R big toe amputation - Neurological Exam Neurological exam: Present: alert, CN II-XII intact, no focal deficits. Absent : oriented X3, pronater drift, facial droop, speech deficit - Skin Skin exam: Present: dry, intact Internal Medicine: Result - Labs CBC & Chem 7: 01/20/18 04:33 01/20/18 04:33 Labs: Short CBC 01/20/18 Range/Units 04:33 WBC 8.9 (4.3-11.1) K/mcL Hgb 12.6 (11.5-15.4) g/dL Hct 38.7 (35.3-44.9) % Plt Count 164 (140-400) K/mcL Neutrophils # 6.4 (1.6-8.9) K/mcL BMP 01/20/18 04:33 Sodium 136 Potassium 4.3 Chloride 96 L Carbon Dioxide 30 H BUN 44 H Creatinine 5.82 H Glucose 101 Calcium 10.1 - ABG Interpretation ABG results: ABG ABG pH 7.43 pH Units (7.32-7.45) 01/17/18 15:43 ABG pCO2 45 mmHg (35-45) 01/17/18 15:43 ABG pO2 68 mmHg (85-104) L 01/17/18 15:43 ABG O2 Saturation 94 % (95-98) L 01/17/18 15:43 - Impressions Impressions Head MRA 01/19/18 11:46 IMPRESSION: No intracranial flow-limiting stenosis. 2 mm outpouching arising from the communicating segment of the left internal carotid artery may reflect a small aneurysm versus infundibulum. D/ / 01/19/2018 13:30:08 Ashley Culp MD / [facility] Interpreting Provider: Ashley Culp MD Echocardiogram 01/19/18 17:44 Impressions: LVEF 60%. Moderate left ventricular diastolic dysfunction. Mildly dilated RV with normal function. Mild mitral regurgitation. Mild aortic stenosis. Mild pulmonary hypertension. Left Ventricular Wall Motion: Rest Echo Findings All wall segments showed normal motion. Findings: Study Quality * Technically adequate exam. ECG Findings * Normal sinus rhythm. Left Ventricle * LVEF 60%. * Normal LV chamber size, wall thickness and function. * Moderate left ventricular diastolic dysfunction. Right Ventricle * Mildly dilated RV with normal function. Left Atrium * Moderately dilated left atrium. Right Atrium * Normal right atrial size. Mitral Valve * Normal mitral valve structure. * No mitral stenosis. * Moderate mitral annular calcification * Mild mitral regurgitation. Aortic Valve * No aortic regurgitation. * Trileaflet aortic valve. * Mildly thickened aortic valve leaflets. * Mild aortic stenosis. Tricuspid Valve * Normal tricuspid valve structure. * Trace tricuspid regurgitation. * Estimated RA pressure is 8 mmHg. * Estimated RVSP is 43 mmHg. * Mild pulmonary hypertension. Pulmonic Valve * No pulmonic stenosis. * No pulmonic regurgitation. * Pulmonic valve is not well visualized. Pulmonary Artery * Pulmonary artery not well visualized. Aorta * Normally sized aortic root. Pericardium * There is no pericardial effusion present. Interatrial Septum * No evidence of PFO with agitated saline contrast. IVC * The IVC is not dilated. * < 50% respiratory change. Consult Discharge Plan - Plan Referrals: Rudi Avila MD [Primary Care Provider] - (Please call appt. if patient is going home)
[2018-01-20] MEDS: Cefepime HCl 1,000 MG in Water for inj. (sterile) 20 ML 10 ML IVP SCH (16:08)
[2018-01-20] MEDS: levoFLOXacin 500 MG TABLET PO SCH (16:08)
--- NOTE | 2018-01-20 16:38 | Vascular/Endovasc Consult Note ---
Date of Encounter: 01/20/18 Time of Encounter: 03:55 Assessment and Plan (1) Carotid stenosis, right Current Visit: Yes Status: Chronic Patient has 6079% right internal carotid artery stenosis with nonstenotic left carotid artery plaque. The patient's symptoms do not correlate with this finding and I do not believe the patient is symptomatic from this right carotid lesion. I discussed this with the patient's . I recommended that the carotid duplex scan be repeated in 6 months. I do not recommend carotid angiography at this time. (2) End stage renal disease on dialysis Current Visit: No Status: Chronic The patient is on 3 times weekly dialysis therapy as directed by Dr. Sánchez. (3) Hypertension Current Visit: Yes Status: Chronic Patient presented with hypertensive emergency. This has improved under medical treatment. Qualifiers: Hypertension type: renovascular hypertension Qualified Code(s): I15.0 - Renovascular hypertension (4) Confusion Current Visit: Yes Status: Acute Patient had confusion with. This may be due to hypertensive encephalopathy. Patient is appropriate in her speech and answering her questions with me today. She does appear to be absent and appears to stare into space while I am in conversation with the patient's . - History of Present Illness Consult date: 01/20/18 Consult reason: Abnormal carotid duplex scan/history of cva Chief complaint: Difficulty with speech and confusion and upper extremity discoordination an History of present illness: Ms. Eng is a 72 year old female Was admitted on January 15 with a variety complaints. The patient came in with significant hypertension and headache. This had started earlier on Sunday and the patient went to dialysis thinking that she required treatment. There is no improvement after the dialysis treatment and she then presented herself for admission. The patient also had speech disturbances with confusion and forgetfulness. Her notes that she had some ataxia and discoordination of her upper extremities. She had difficulties picking up objects or holding objects even with both hands. She is a left-handed individual but the patient notes that the symptoms were more pronounced in the right upper extremity than the left. Interestingly the upper extremity symptoms appear to be better today. As part of her evaluation she has undergone a number of imaging studies. An MRI demonstrated an old left basal ganglia or stroke and bilateral cerebellar strokes. There are no new cerebral findings. Another study performed was a carotid duplex scan. This demonstrated a 6079% right internal carotid artery stenosis with nonstenotic left carotid plaque. The patient had a previous duplex scan performed in May 2016 which shows very similar findings. Patient has a strong family history for stroke in her father of a stroke at age 64. Patient's ongoing medical issues include known severe peripheral vascular disease. She is status post an angiogram by Dr. Lino in September 2016 with a left popliteal artery endovascular intervention. The patient also went on to have amputation. She is on renal replacement therapy and receives dialysis as directed by Dr. Sánchez on Wednesdays and Fridays. Past Med Surg Social Fam HX - Past Medical History Medical history: coronary artery disease, diabetes, dialysis, hyperlipidemia, hypertension, renal disease, other Additional medical history: hemodialysis Psychiatric history: anxiety, depression - Past Surgical History Surgical History: carotid endarterectomy, hysterectomy, orthopedic, other, thyroidectomy, other (amputation left leg) Additional surgical history: LBKA, right digits removed - Social History Smoking Status: Never smoker Smokeless Tobacco Status: No Alcohol use: none Drug use: none - Family History Mother Adopted: No Family Member Ethnicity: Non- Living Status: Hx Family Cardiac Disorders: No Hx Family Respiratory Disorders: Yes Hx Family Cancer: Yes Hx Family GI Disorders: No Hx Family Endocrine Disorder: No Hx Family Neuromuscular Disorders: No Hx Family Neurologic Disorders: No Hx Family HEENT Disorders: No Hx Family Autoimmune Disorders: No Father Adopted: No Family Member Ethnicity: Non- Living Status: Hx Family Cardiac Disorders: Yes Hx Family Respiratory Disorders: Yes Hx Family Cancer: No Hx Family GI Disorders: No Hx Family Endocrine Disorder: Yes Hx Family Neuromuscular Disorders: No Hx Family Neurologic Disorders: Yes Hx Family HEENT Disorders: No Hx Family Autoimmune Disorders: No Medications and Allergies Lidocaine/Prilocaine [Emla] 1 appl TP ONCE PRN 10/09/16 [History] Clopidogrel [Plavix] 75 mg PO DAILY tablet 10/16/16 [Rx] DiphenhydraMINE [Benadryl] 25 mg PO HS PRN #10 02/05/17 [Rx] Citalopram [CeleXA] 20 mg PO DAILY 03/30/17 [History] Metoprolol [Lopressor] 25 mg PO BID 03/30/17 [History] Multivitamin [Multivitamins] 1 cap PO DAILY 09/03/17 [History] Acetaminophen [Tylenol] 650 mg PO Q6HR PRN #30 tablet 09/10/17 [Rx] Gabapentin [Neurontin] 100 mg PO TID #15 capsule 09/21/17 [Rx] 3 Allergy/AdvReac Type Severity Reaction Status Date / Time Penicillins Allergy Hives Verified 01/15/18 09:23 All Systems Review: The remainder of the systems were reviewed and are negative Exam Vital Signs, Last 4 Hours Temp Pulse Resp BP Pulse Ox 01/20/18 15:55 98.6 F 66 17 111/63 97 General: Present: No Apparent Distress, Other (Patient offers little in spontaneous conversation. She appears to be staring into the distance. However when engaged she answers appropriately.) HEENT: Present: Atraumatic, Normocephaly, Trachea midline Neck: Present: Right Carotid bruit. Absent: JVD, Left Carotid bruit, Midline deformity, Tracheal deviation Cardiac: Present: Reg Rate and Rhythm, Normal S1 and S2, No Murmur Lungs: Present: Normal Breath Sounds, No Wheeze, Rales, Rhonchi Neuro: Present: Alert and responsive, Cranial nerves grossly intact, Other ( Patient has normal thermometer maker strength bilaterally and it is equal. She has resting tremors on extension of her upper extremities and is unable to hold them in position against gravity.) Abdomen: Present: Soft, Non-tender Vascular: Present: Pulse, normal (Upper extremity pulses are 2+ and symmetrical. Carotid pulses are 2+) Skin: Present: No rashes noted on visualized skin Consult Discharge Plan - Plan Referrals: Rudi Avila MD [Primary Care Provider] - (Please call appt. if patient is going home)
--- NOTE | 2018-01-20 17:05 | Neurology Progress Note ---
Date of Encounter: 01/20/18 Time of Encounter: 17:01 Assessment and Plan (1) Altered mental status Current Visit: No Status: Acute At this juncture I am convinced that her altered mental status was likely due to hypertensive encephalopathy or perhaps the lingering effects of one of her medications considering the fact that she is a dialysis patient. The myoclonic movements of the upper extremities resemble asterixis. However I will obtain an EEG of the brain tomorrow just to rule out the possibility of focal seizure activity. I am less concerned now with a central nervous system infectious or inflammatory process. Her mental status is improving by the day. I will reassess her tomorrow. Qualifiers: Altered mental status type: disorientation Qualified Code(s): R41.0 - Disorientation, unspecified Subjective Principal diagnosis: ESRD Interval history: The chart was reviewed, the patient was seen and examined. Case was discussed with nephrology. Patient today is sitting in the chair independently. She is awake and alert although not back to her baseline she is continuing to improve each day. The fact that she is clinically improved it alleviates my suspicions of intracranial vasculitis, and herpes encephalitis because she is not being treated for either. I did review the MRI scan of the brain did not reveal evidence of temporal lobe edema. I also reviewed the MRA scan of the brain. The reveals what is likely a 2 mm infundibulum involving the left internal carotid artery. However this is too small to be symptomatic and there is no evidence of leaking or rupture. She does have involuntary myoclonic movements of both upper extremities right greater than left. These movements are reminiscent of asterixis. The patient has not had a headache in the last 2 days. Her speech is fluent. I am increasingly suspicious that her neurologic changes were due to either hypertensive encephalopathy, or perhaps medication effect perhaps gabapentin, which is renally cleared and may remain in the system for extended periods of time any patient who has renal failure. Objective - Constitutional Vitals: Temp Pulse Resp BP Pulse Ox 98.6 F 66 17 111/63 97 01/20/18 15:55 01/20/18 15:55 01/20/18 15:55 01/20/18 15:55 01/20/18 15:55 - Neurological Exam Motor Examination: Present: other (I see no focal or lateralized deficits. However she seems to have some element of ataxia of the right upper extremity. But she has normal tone in both upper extremities. She does have myoclonic movements of the upper extremities which resemble asterixis.) Mental Status Examination: Present: awake, alert, oriented to person, oriented to place, follows commands appropriately. Absent: oriented to time Cranial nerve examination: Present: PERRL, EOMI, corneal reflexes brisk symmetrically, sensory to face intact, mastication intact, no facial asymmetry is present, no dysarthria Results - Laboratory Findings CBC and BMP: 01/20/18 04:33 01/20/18 04:33 Abnormal lab findings: Abnormal lab results RBC 3.74 M/mcL (3.82-4.97) L 01/20/18 04:33 MCV 103.5 fL (83.0-100.0) H 01/20/18 04:33 MCH 33.7 pg (28.0-33.3) H 01/20/18 04:33 RDW 15.2 % (11.5-14.5) H 01/20/18 04:33 ABG pO2 68 mmHg (85-104) L 01/17/18 15:43 ABG HCO3 30 mEq/L (21-27) H 01/17/18 15:43 ABG Total CO2 31 mEq/L (20-26) H 01/17/18 15:43 ABG O2 Saturation 94 % (95-98) L 01/17/18 15:43 ABG Base Excess 5 mEq/L (-2 to 3) H 01/17/18 15:43 VBG pCO2 61 mmHg (41-51) H 01/15/18 04:57 VBG pO2 90 mmHg (25-50) H 01/15/18 04:57 VBG HCO3 34 mEq/L (21-27) H 01/15/18 04:57 Chloride 96 mEq/L (98-107) L 01/20/18 04:33 Carbon Dioxide 30 mEq/L (23-29) H 01/20/18 04:33 BUN 44 mg/dL (8-23) H 01/20/18 04:33 Creatinine 5.82 mg/dL (0.60-1.20) H 01/20/18 04:33 Est GFR ( Amer) 9 (> 60) L 01/20/18 04:33 Est GFR (Non-Af Amer) 7 (> 60) L 01/20/18 04:33 POC Glucose 190 mg/dL (70-99) H 01/19/18 20:30 Phosphorus 6.9 mg/dL (2.7-4.5) H 01/15/18 04:43 Folate > 22.3 ng/mL (3.0-16.0) H 01/15/18 06:46 Consult Discharge Plan - Plan Referrals: Rudi Avila MD [Primary Care Provider] - (Please call appt. if patient is going home)
[2018-01-21] MEDS: *HR* Heparin 5,000 UNIT/ML VIAL SQ SCH ×2 (05:45→17:53)
[2018-01-21] MEDS ORDERED: 0.9 % Sodium Chloride 1,000 ML ONE (06:43)
[2018-01-21 07:05] LABS: Hematocrit 36.8 % (35.3-44.9); Hemoglobin 12.5 g/dL (11.5-15.4); Mean Corpuscular Hemoglobin 35.1 pg (28.0-33.3); Mean Corpuscular Volume 103.4 fL (83.0-100.0); Mean Platelet Volume 11.1 fL (9.4-12.4); Platelet Count 171 K/mcL (140-400); Red Blood Count 3.56 M/mcL (3.82-4.97); Red Cell Distribution Width 14.7 % (11.5-14.5)
[2018-01-21 07:16] LABS: Calcium 9.9 mg/dL (8.6-10.3); Potassium 4.7 mEq/L (3.5-5.1)
[2018-01-21] MEDS ORDERED: 0.9 % Sodium Chloride 250 ML IVC PRN (08:28)
--- NOTE | 2018-01-21 08:36 | Neurology Progress Note ---
Date of Encounter: 01/21/18 Time of Encounter: 08:34 Assessment and Plan (1) Altered mental status Current Visit: No Status: Acute Patient is a bit more confused again this morning. The waxing and waning mental status is more consistent with an underlying metabolic disorder. BUN/ creatinine are raised this morning. She will get an EEG today. However in general I would not expect the waxing and waning of mental status if this were a primary neurologic process. Further recommendations to follow the EEG. I believe she is also scheduled for dialysis today. Qualifiers: Altered mental status type: disorientation Qualified Code(s): R41.0 - Disorientation, unspecified Subjective Principal diagnosis: ESRD Interval history: The chart was reviewed, the patient was seen and examined. She seems a bit more confused this morning. She is also complaining of a headache. She has no focal or lateralized deficits. However her speech is nonfluent. She does answer some questions but not with the clarity that she did yesterday. She moves both arms without difficulty. BUN/creatinine are 61/7 respectively. She still has the myoclonic type tremors of the upper extremities. Objective - Constitutional Vitals: Temp Pulse Resp BP Pulse Ox 97.8 F 64 14 123/54 94 01/21/18 06:59 01/21/18 06:59 01/21/18 06:59 01/21/18 06:59 01/21/18 06:59 - Neurological Exam Motor Examination: Present: other (I see no focal or lateralized deficits. However she seems to have some element of ataxia of the right upper extremity. But she has normal tone in both upper extremities. She does have myoclonic movements of the upper extremities which resemble asterixis.) Mental Status Examination: Present: awake, oriented to person. Absent: alert ( Patient is less alert today. She seems to be more confused,), oriented to place , oriented to time, follows commands appropriately Cranial nerve examination: Present: PERRL, EOMI, corneal reflexes brisk symmetrically, sensory to face intact, mastication intact, no facial asymmetry is present, no dysarthria Results - Laboratory Findings CBC and BMP: 01/21/18 06:34 01/21/18 06:34 Abnormal lab findings: Abnormal lab results RBC 3.56 M/mcL (3.82-4.97) L 01/21/18 06:34 MCV 103.4 fL (83.0-100.0) H 01/21/18 06:34 MCH 35.1 pg (28.0-33.3) H 01/21/18 06:34 RDW 14.7 % (11.5-14.5) H 01/21/18 06:34 ABG pO2 68 mmHg (85-104) L 01/17/18 15:43 ABG HCO3 30 mEq/L (21-27) H 01/17/18 15:43 ABG Total CO2 31 mEq/L (20-26) H 01/17/18 15:43 ABG O2 Saturation 94 % (95-98) L 01/17/18 15:43 ABG Base Excess 5 mEq/L (-2 to 3) H 01/17/18 15:43 VBG pCO2 61 mmHg (41-51) H 01/15/18 04:57 VBG pO2 90 mmHg (25-50) H 01/15/18 04:57 VBG HCO3 34 mEq/L (21-27) H 01/15/18 04:57 Chloride 95 mEq/L (98-107) L 01/21/18 06:34 BUN 61 mg/dL (8-23) H 01/21/18 06:34 Creatinine 7.00 mg/dL (0.60-1.20) H 01/21/18 06:34 Est GFR ( Amer) 7 (> 60) L 01/21/18 06:34 Est GFR (Non-Af Amer) 6 (> 60) L 01/21/18 06:34 POC Glucose 125 mg/dL (70-99) H 01/20/18 20:08 Calculated Osmolality 301 (280-300) H 01/21/18 06:34 Phosphorus 6.9 mg/dL (2.7-4.5) H 01/15/18 04:43 Folate > 22.3 ng/mL (3.0-16.0) H 01/15/18 06:46 Consult Discharge Plan - Plan Referrals: Rudi Avila MD [Primary Care Provider] - (Please call appt. if patient is going home)
[2018-01-21] MEDS: Multivit/Ca/Min/Fe/FA 1 TAB TABLET PO SCH (10:01)
[2018-01-21] MEDS: Aspirin Enteric Coated 81 MG Tablet PO SCH (10:01)
--- NOTE | 2018-01-21 12:56 | Internal Med Progress Note ---
Date of Encounter: 01/21/18 Time of Encounter: 12:55 - Assessment and plan (1) Headache Current Visit: Yes Status: Resolved Assessment and plan: Resolved at this time. Continue to monitor. Qualifiers: Headache type: other headache syndrome Qualified Code(s): G44.89 - Other headache syndrome (2) Diabetes mellitus Current Visit: Yes Status: Chronic Assessment and plan: History of type II diabetes. A1C 4.5 FS acceptable Continue to monitor Qualifiers: Diabetes mellitus type: type 2 Diabetes mellitus custodial insulin use: with custodial use Diabetes mellitus complication status: with kidney complications Diabetes mellitus complication detail: with chronic kidney disease Chronic kidney disease stage: on chronic dialysis Qualified Code(s) : E11.22 - Type 2 diabetes mellitus with diabetic chronic kidney disease; N18.6 - End stage renal disease; Z79.4 - [facility] (current) use of insulin; Z99.2 - Dependence on renal dialysis (3) DVT prophylaxis Current Visit: Yes Status: Acute Assessment and plan: Heparin SQ (4) Anemia Current Visit: Yes Status: Chronic Assessment and plan: history of anemia-note macrocytosis on H/H. B12, folate WNL Hb stable Continue to monitor Qualifiers: Anemia type: unspecified type Qualified Code(s): D64.9 - Anemia, unspecified (5) ESRD (end stage renal disease) on dialysis Current Visit: Yes Status: Chronic Assessment and plan: HD per renal schedule Nephrology following (6) HCAP (healthcare-associated pneumonia) Current Visit: Yes Status: Suspected Assessment and plan: Suspected Patient recently hospitalized from 11/19- right great toe osteomyelitis, S/P great toe amputation. Patient only has symptoms of nonproductive cough. Patient is not meet sepsis criteria at this time. She also had SOB on arrival with new hypoxia CT showed by basilar lower lobe airspace disease, chest x-ray showed infiltrate within the medial right upper lobe. Discontinue Cefepime Continue Levaquin (7) PAD (peripheral artery disease) Current Visit: Yes Status: Chronic Assessment and plan: chronic, stable (8) Essential hypertension Current Visit: Yes Status: Chronic Assessment and plan: now controlled, continue norvasc and metoprolol (9) Status post below knee amputation of left lower extremity Current Visit: Yes Status: Chronic Assessment and plan: Stump is clean and dry (10) CAD in [place] artery Current Visit: Yes Status: Chronic Assessment and plan: Continue home medications (11) Troponin level elevated Current Visit: Yes Status: Acute Assessment and plan: Patient denies current chest pain. Mild troponin elevation, but is chronically elevated and has been elevated in the past. EKG showed sinus rhythm without any ischemic changes. Continue to monitor (12) Confusion Current Visit: Yes Status: Acute Assessment and plan: Patient with very slow mentation, and RUE involuntary/tic movements, head CT negative No facial droop, speech is slow but overall coherent ABG showed PO2 68, SO2 94%, possibly mixed venous Neurology consulted, following Brain MRI showed chronic microvascular calcifications and remote lacunar infarcts MRA ordered by neurologust to r/o vasculitis, shows infudnibulum, vs 2mm aneurysm, She may have had HTN encephalopathy, will continue to follow Carotid report noted, no intervention per vascular surgery EEG with moderate encephalopathy Patient may also be having delirium-continue reorientation and quiet nursing (13) Myoclonus Current Visit: Yes Status: Acute Assessment and plan: No acute intervention Neuro folowing - Time Spent With Patient Total time spent is greater than 50% in coordination of care (as documented) at patient's floor/unit and/or counseling patient: - Subjective Interval history: Seen and examined at bedside Her mental status continues to improve, however patient still has some confusion , she continues to have myoclonus jerks She has no slurred speech, no facial droop, no motor weakness Brain MRI is negative LP not done by IR due to use of Plavix, low suspicion for encephalitis/ meningitis/intracranial infectious process Neurology is following MRA requested by Neuro to r/o vasculitis, showed 2mm outpouchng, possible infundibulum, vs aneurysm, Carotid Doppler USS is done, preliminary reports showed 60-79% stenosis n JOVANNY with high velocity, highly irregular heterogenous plaque Vaculr surgery eval noted-no intervention EEG scheduled by neuro-moderate generalized encephalopathy Awaiting HD at the time of review Continue other current management - Constitutional Vitals: Temp Pulse Resp BP Pulse Ox 97.9 F 65 14 115/64 93 01/21/18 10:58 01/21/18 10:58 01/21/18 10:58 01/21/18 10:58 01/21/18 10:58 General appearance: Present: A&O X 2, pleasant, no acute distress - Head Head exam: Present: atraumatic, normocephalic - Eye Eye exam: Present: PERRL, conjuntiva pink, sclera anicteric Pupils: Present: PERRL - Neck Neck exam general surgery: Present: supple, trachea midline. Absent: lymphadenopathy - Respiratory Respiratory exam: Present: CTAB. Absent: accessory muscle use, rales, rhonchi, wheezes - Cardiovascular Cardiovascular exam: Present: RRR, +S1, +S2. Absent: diastolic murmur, gallop, rubs, systolic murmur - GI/Abdominal GI/Abdominal exam: Present: normal bowel sounds, soft, no peritoneal signs. Absent: distended, tenderness - Extremities Exam Additional comments: s/p L BKA, stump clean an d dry - Neurological Exam Neurological exam: Present: alert, CN II-XII intact, no focal deficits. Absent : oriented X3, pronater drift, facial droop, speech deficit Additional comments: occasional LUE myoclonic jerks - Skin Skin exam: Present: dry, intact Internal Medicine: Result - Labs CBC & Chem 7: 01/21/18 06:34 01/21/18 06:34 Labs: Short CBC 01/21/18 Range/Units 06:34 WBC 9.6 (4.3-11.1) K/mcL Hgb 12.5 (11.5-15.4) g/dL Hct 36.8 (35.3-44.9) % Plt Count 171 (140-400) K/mcL BMP 01/21/18 06:34 Sodium 137 Potassium 4.7 Chloride 95 L Carbon Dioxide 28 BUN 61 H Creatinine 7.00 H Glucose 88 Calcium 9.9 - ABG Interpretation ABG results: ABG ABG pH 7.43 pH Units (7.32-7.45) 01/17/18 15:43 ABG pCO2 45 mmHg (35-45) 01/17/18 15:43 ABG pO2 68 mmHg (85-104) L 01/17/18 15:43 ABG O2 Saturation 94 % (95-98) L 01/17/18 15:43 Consult Discharge Plan - Plan Referrals: Rudi Avila MD [Primary Care Provider] - (Please call appt. if patient is going home)
--- NOTE | 2018-01-21 14:58 | EEG/EMG/Oth Biometrics Report ---
EEG Procedure Report Date of procedure: 01/21/18 EEG Procedure: Routine EEG Procedure Note: This is a report of a 21 channel bipolar and referential montage EEG. There is no posterior dominant alpha rhythm present during the recording. The posterior rhythm consists of occasional mixed alpha and theta frequencies, and then the times where only theta frequencies are present at about 6-7 Hz. Delta frequencies and mixed theta frequencies are present anteriorly throughout much of the recording. Hyperventilation is not performed in recording. There is no sleep architecture identified during the study. Photic stimulations performed and does not produce a driving response. The EKG rhythm strip reveals normal sinus rhythm at 66 bpm. Impressions: This EEG recording is abnormal and is consistent with a moderate generalized encephalopathy. There is no evidence of epileptiform activity identified during the study. Comment: Etiologies of this interpretation might include toxic, metabolic, postictal, or degenerative. Please correlate clinically.
[2018-01-21] MEDS: Cefepime HCl 1,000 MG in Water for inj. (sterile) 20 ML 10 ML IVP SCH (17:45)
[2018-01-21] MEDS: amLODIPine 5 MG TABLET PO SCH (17:49)
--- NOTE | 2018-01-21 18:06 | Nephrology Progress Note ---
Date of Encounter: 01/21/18 Time of Encounter: 12:00 - Assessment and Plan (1) ESRD (end stage renal disease) on dialysis Current Visit: Yes Status: Chronic Next HD planned for sunday Ly WNL Continue renal diet if able (2) Altered mental status Current Visit: No Status: Acute Appreciate neurology recs, MRA results noted. Lumbar puncture unsuccessful. More awake, perhaps etiology medication (gabapentin) induced? Of note, pt is well dialyzed and not uremic Qualifiers: Altered mental status type: disorientation Qualified Code(s): R41.0 - Disorientation, unspecified Subjective Principal diagnosis: ESRD Interval history: Interim events noted. Pt seen and examined Objective - Vital Signs Vital signs: Vital Signs Temp Pulse Resp BP Pulse Ox 01/21/18 16:50 97.7 F 15 125/57 01/21/18 16:40 121/66 01/21/18 16:25 120/58 01/21/18 16:22 98.7 F 93 14 121/60 96 01/21/18 16:10 93/45 01/21/18 15:55 100/69 01/21/18 15:40 92/47 01/21/18 15:25 96/45 01/21/18 15:10 90/47 01/21/18 14:55 120/54 01/21/18 14:40 107/53 01/21/18 14:25 113/51 01/21/18 14:10 107/53 01/21/18 13:55 103/52 01/21/18 13:40 110/53 01/21/18 13:25 129/57 01/21/18 13:10 97.7 F 15 138/64 01/21/18 10:58 97.9 F 65 14 115/64 93 01/21/18 10:30 94 01/21/18 06:59 97.8 F 64 14 123/54 94 01/21/18 03:25 97.9 F 61 16 113/66 94 01/20/18 23:00 98.0 F 65 16 146/75 96 01/20/18 19:36 98.1 F 65 16 122/67 96 Intake and Output 01/21/18 01/21/18 01/21/18 07:59 15:59 23:59 Intake Total 610 / 610 Output Total 3600 / 3600 Balance 610 / 610 -3600 / -3600 Intake: IV Fluids Maxipime 1,000 MG In Water for inj. (sterile) 10 ML @ 300 mls/ hr IVP Q24H KIMMIE Rx#:[id number] Oral 0 / 0 Intake, Rinseback and Flushes 600 / 600 Output: Urine 0 / 0 Total Dialysis (HD) Output 3600 / 3600 Other: Meal Breakfast Percent of Meal Consumed 0% Weight 68 kg Blood Glucose* 93 114 128 Hemodialysis Net Fluid Removed 2340 3000 (mL) Patient Weight 01/21/18 23:59 Weight 68 kg - Lab 01/21/18 06:34 01/21/18 06:34 Most recent lab results ABG pH 7.43 pH Units (7.32-7.45) 01/17/18 15:43 ABG pCO2 45 mmHg (35-45) 01/17/18 15:43 ABG pO2 68 mmHg (85-104) L 01/17/18 15:43 ABG HCO3 30 mEq/L (21-27) H 01/17/18 15:43 ABG O2 Saturation 94 % (95-98) L 01/17/18 15:43 Calcium 9.9 mg/dL (8.6-10.3) 01/21/18 06:34 Phosphorus 6.9 mg/dL (2.7-4.5) H 01/15/18 04:43 Magnesium 2.0 mg/dL (1.6-2.6) 01/15/18 04:43 Consult Discharge Plan - Plan Referrals: Rudi Avila MD [Primary Care Provider] - (Please call appt. if patient is going home)
[2018-01-22] MEDS: Ondansetron 4 MG/2 ML VIAL IVP PRN (01:16)
[2018-01-22 06:00] LABS: Hematocrit 38.7 % (35.3-44.9); Hemoglobin 13.2 g/dL (11.5-15.4); Mean Corpuscular HGB Conc 34.1 g/dL (31.6-35.5); Mean Corpuscular Volume 102.7 fL (83.0-100.0); Mean Platelet Volume 11.2 fL (9.4-12.4); Platelet Count 192 K/mcL (140-400); Red Blood Count 3.77 M/mcL (3.82-4.97); Red Cell Distribution Width 14.8 % (11.5-14.5)
[2018-01-22 06:20] LABS: Calcium 10.4 mg/dL (8.6-10.3); Potassium 4.1 mEq/L (3.5-5.1)
[2018-01-22] MEDS: *HR* Heparin 5,000 UNIT/ML VIAL SQ SCH (06:21)
--- NOTE | 2018-01-22 08:36 | Neurology Progress Note ---
Date of Encounter: 01/22/18 Time of Encounter: 08:33 Assessment and Plan (1) Altered mental status Current Visit: No Status: Acute I believe this patient's altered mental status is multifactorial. Waxing and waning component suggest an underlying metabolic etiology to explain this. He may be a sundowning component as well. However I am convinced that we are not dealing with a primary neurologic vascular, infectious, inflammatory process. Perhaps her getting up in the chair may help. I will reevaluate her at your request. Qualifiers: Altered mental status type: disorientation Qualified Code(s): R41.0 - Disorientation, unspecified Subjective Principal diagnosis: ESRD Interval history: The chart was reviewed, the patient was seen and examined. She is sleeping soundly this morning. She is awakened to voice and mild tactile stim. She states that she recognizes me however after 3 days or so still does not recall my name. She knows that she is in [facility] she knows the month is January. However she continues to wax and wane with regard to her mental status. She is having some delusions stating that her is leaving her knee is not coming back. She follow simple commands. Speech is fluent. She denies headache this morning. Her neurologic workup has been essentially negative for a primary neurologic etiology to explain this. MRI scan of the brain revealed old lacunar infarcts however did not reveal evidence of a new infarct, MRA scan of the brain revealed no evidence of vasculitis or intracranial occlusions, EEG revealed moderate generalized encephalopathy however no seizure activity. Objective - Constitutional Vitals: Temp Pulse Resp BP Pulse Ox 98.2 F 70 16 117/63 96 01/22/18 07:25 01/22/18 07:25 01/22/18 07:25 01/22/18 07:25 01/22/18 07:25 - Neurological Exam Motor Examination: Present: other (I see no focal or lateralized deficits. However she seems to have some element of ataxia of the right upper extremity. But she has normal tone in both upper extremities. She does have myoclonic movements of the upper extremities which resemble asterixis.) Mental Status Examination: Present: awake, oriented to person. Absent: alert ( Patient is less alert today. She seems to be more confused,), oriented to place , oriented to time, follows commands appropriately Cranial nerve examination: Present: PERRL, EOMI, corneal reflexes brisk symmetrically, sensory to face intact, mastication intact, no facial asymmetry is present, no dysarthria Results - Laboratory Findings CBC and BMP: 01/22/18 05:17 01/22/18 05:17 Abnormal lab findings: Abnormal lab results RBC 3.77 M/mcL (3.82-4.97) L 01/22/18 05:17 MCV 102.7 fL (83.0-100.0) H 01/22/18 05:17 MCH 35.0 pg (28.0-33.3) H 01/22/18 05:17 RDW 14.8 % (11.5-14.5) H 01/22/18 05:17 ABG pO2 68 mmHg (85-104) L 01/17/18 15:43 ABG HCO3 30 mEq/L (21-27) H 01/17/18 15:43 ABG Total CO2 31 mEq/L (20-26) H 01/17/18 15:43 ABG O2 Saturation 94 % (95-98) L 01/17/18 15:43 ABG Base Excess 5 mEq/L (-2 to 3) H 01/17/18 15:43 VBG pCO2 61 mmHg (41-51) H 01/15/18 04:57 VBG pO2 90 mmHg (25-50) H 01/15/18 04:57 VBG HCO3 34 mEq/L (21-27) H 01/15/18 04:57 Chloride 91 mEq/L (98-107) L 01/22/18 05:17 Carbon Dioxide 33 mEq/L (23-29) H 01/22/18 05:17 BUN 29 mg/dL (8-23) H 01/22/18 05:17 Creatinine 4.43 mg/dL (0.60-1.20) H 01/22/18 05:17 Est GFR ( Amer) 12 (> 60) L 01/22/18 05:17 Est GFR (Non-Af Amer) 10 (> 60) L 01/22/18 05:17 POC Glucose 114 mg/dL (70-99) H 01/21/18 11:04 Calcium 10.4 mg/dL (8.6-10.3) H 01/22/18 05:17 Phosphorus 6.9 mg/dL (2.7-4.5) H 01/15/18 04:43 Folate > 22.3 ng/mL (3.0-16.0) H 01/15/18 06:46 Consult Discharge Plan - Plan Referrals: Rudi Avila MD [Primary Care Provider] - (Please call appt. if patient is going home)
[2018-01-22] MEDS: amLODIPine 5 MG TABLET PO SCH (09:57)
[2018-01-22] MEDS: Multivit/Ca/Min/Fe/FA 1 TAB TABLET PO SCH (09:57)
[2018-01-22] MEDS: Aspirin Enteric Coated 81 MG Tablet PO SCH (09:57)
[2018-01-22 11:43] VITALS: BP 112/67
--- NOTE | 2018-01-22 11:58 | Discharge Summary ---
Orders not resulted at time of discharge: Pending orders 01/23/18 04:00 Basic Metabolic Panel AM 0400 CBC no Diff [Complete Blood Count w/o Diff] [HEME] [place] [address]01/24/18 04:00 Basic Metabolic Panel AM 0400 CBC no Diff [Complete Blood Count w/o Diff] [HEME] AM 04001/25/18 04:00 Basic Metabolic Panel AM 0400 CBC no Diff [Complete Blood Count w/o Diff] [HEME] AM 39901/26/18 04:00 Basic Metabolic Panel AM 0400 CBC no Diff [Complete Blood Count w/o Diff] [HEME] AM 04001/27/18 04:00 Basic Metabolic Panel AM 040 CBC no Diff [Complete Blood Count w/o Diff] [HEME] AM 040 Date of Encounter: 01/22/18 Time of Encounter: 11:50 - Discharge Diagnosis (1) Confusion Priority: Primary Status: Acute Assessment and Plan: 72 year old female with past medical history of ESR D on hemodialysis Sunday, counseling axis, secondary hyperparathyroidism, hypertension, diabetes type II, HLD, GRD, history of CVA, diabetic neuropathy, anemia of chronic disease, PVD, CAD, left lower extremity BKA came in for headaches. Patient was assessed with HCAP and hypoxia and started on broad spectrum antibiotics.Her hypoxia reolved, however on 01/18, she was noted to have a worsening of her mental status and neurology was consulted. An MRI of the brain showed chronic changes and no acute infarcts. An EEG also came back within normal limit. per neuro recs, her encephalopathy may be possibly metabolic. On the day of discharge, she was back to her baseline mental status per family and she was discharged home in a stable condition. Amlodipine was added to her anti hypertensive regimen (3) Diabetes mellitus Priority: Secondary Status: Chronic Qualifiers: Diabetes mellitus type: type 2 Diabetes mellitus long term care phlebotomist insulin use: with long term care phlebotomist use Diabetes mellitus complication status: with kidney complications Diabetes mellitus complication detail: with chronic kidney disease Chronic kidney disease stage: on chronic dialysis Qualified Code(s) : E11.22 - Type 2 diabetes mellitus with diabetic chronic kidney disease; N18.6 - End stage renal disease; Z79.4 - halfway (current) use of insulin; Z99.2 - Dependence on renal dialysis (4) DVT prophylaxis Priority: Secondary Status: Acute (5) Anemia Priority: Secondary Status: Chronic Qualifiers: Anemia type: unspecified type Qualified Code(s): D64.9 - Anemia, unspecified (6) ESRD (end stage renal disease) on dialysis Priority: Secondary Status: Chronic (7) HCAP (healthcare-associated pneumonia) Priority: Secondary Status: Suspected (8) PAD (peripheral artery disease) Priority: Secondary Status: Chronic (9) Essential hypertension Priority: Secondary Status: Chronic (10) Status post below knee amputation of left lower extremity Priority: Secondary Status: Chronic (11) CAD in [place] artery Priority: Secondary Status: Chronic (12) Troponin level elevated Priority: Secondary Status: Acute (13) Myoclonus Priority: Secondary Status: Acute Hospital course: Ms. Eng is a 72 year old female - Time Spent with Patient Total time spent providing and/or coordinating discharge services: - Discharge Medications Prescriptions: amLODIPine [Norvasc] 10 mg PO DAILY #30 tablet Aspirin Enteric Coated [Aspirin EC] 81 mg PO DAILY #30 tablet.dr Arnoldelakatherin [Renvela] 800 mg PO TIDWM #60 tablet Home Medications: Lidocaine/Prilocaine [Emla] 1 appl TP ONCE PRN 10/09/16 [History] Clopidogrel [Plavix] 75 mg PO DAILY tablet 10/16/16 [Rx] DiphenhydraMINE [Benadryl] 25 mg PO HS PRN #10 02/05/17 [Rx] Citalopram [CeleXA] 20 mg PO DAILY 03/30/17 [History] Metoprolol [Lopressor] 25 mg PO BID 03/30/17 [History] Multivitamin [Multivitamins] 1 cap PO DAILY 09/03/17 [History] Acetaminophen [Tylenol] 650 mg PO Q6HR PRN #30 tablet 09/10/17 [Rx] Gabapentin [Neurontin] 100 mg PO TID #15 capsule 09/21/17 [Rx] Aspirin Enteric Coated [Aspirin EC] 81 mg PO DAILY #30 tablet. 01/22/18 [Rx] Sevelamer [Renvela] 800 mg PO TIDWM #60 tablet 01/22/18 [Rx] amLODIPine [Norvasc] 10 mg PO DAILY #30 tablet 01/22/18 [Rx] Allergies/Adverse Reactions: 3 Allergy/AdvReac Type Severity Reaction Status Date / Time Penicillins Allergy Hives Verified 01/15/18 09:23 Date of admission: 01/15/18 05:08 Primary care physician: Rudi Avila MD Consults: 01/15/18 05:42 Consult to Enhanced Environmental Operator [CONS] Routine Reason for SW Consult: discharge planning 01/15/18 06:06 Consult to Nephrology [CONS] Routine Consulting Provider: [facility]/PAMELA/ULISES/PAULINO Reason for Consult: ESRD patient, Dialysis Sunday Call Completed: Yes 01/16/18 05:15 Consult to Dialysis [CONS] ONCE 01/17/18 15:59 Consult to Neurology [CONS] Routine Consulting Provider: Neurology [facility] Reason for Consult: Confusion, involuntary R arm movements. Call Completed: No 01/18/18 08:00 Consult to Dialysis [CONS] ONCE 01/20/18 12:14 Consult to Vascular Surgery [CONS] Routine Consulting Provider: Vascular Surgery Zhanna Reason for Consult: R ICA stenosis Call Completed: Yes 01/21/18 08:30 Consult to Dialysis [CONS] ONCE 01/21/18 09:40 Consult to Interpret Exam [CONS] Routine Consulting Provider: Rolando Torres Consult to Interpret Exam: Interpret EEG - Constitutional Vitals: Temp Pulse Resp BP Pulse Ox 98.5 F 72 18 112/67 92 01/22/18 11:42 01/22/18 11:42 01/22/18 11:42 01/22/18 11:42 01/22/18 11:42 General appearance: Present: A&O X 1, A&O X 2, pleasant, no acute distress - Head Head exam: Present: atraumatic, normocephalic - Eye Eye exam: Present: PERRL, conjuntiva pink, sclera anicteric Pupils: Present: PERRL - Neck Neck exam general surgery: Present: supple, trachea midline. Absent: lymphadenopathy - Respiratory Respiratory exam: Present: CTAB. Absent: accessory muscle use, rales, rhonchi, wheezes - Cardiovascular Cardiovascular exam: Present: RRR, +S1, +S2. Absent: diastolic murmur, gallop, rubs, systolic murmur - GI/Abdominal GI/Abdominal exam: Present: normal bowel sounds, soft, no peritoneal signs. Absent: distended, tenderness - Extremities Exam Extremities exam: Present: warm, radial pulses palpable and symmetrical. Absent : calf tenderness, cyanotic, pedal edema Additional comments: s/p left BKA - Neurological Exam Neurological exam: Present: CN II-XII intact, oriented X3, no focal deficits. Absent: pronater drift, facial droop, speech deficit - Skin Skin exam: Present: dry, intact - Patient Status Disposition: Home, Self-Care Condition: Fair - Discharge Instructions Follow Up With: Rudi Avila MD [Primary Care Provider] - 01/29/18 1:55 pm (Please follow up as schedule, you will follow up with Dr. Bryan)
== END 2018-01-22 15:10 | disposition home or self-care (01) | DRG 77 ==
LOC: EMEROO 21:54 → 2ANU 21:54 → EMEROO 01-15 03:18 → SUATTDRO 01-15 05:08 → 2ANU 01-15 05:11
PROVIDERS: ADMIT Internal Medicine; ATTEND Internal Medicine

== ENCOUNTER 2018-02-22 14:07 | Inpatient (IN) ==
--- NOTE | 2018-02-22 14:21 | Emergency Department Note ---
Disposition Clinical Impression: ESRD (end stage renal disease) on dialysis, Hyperkalemia Disposition: Admitted As Inpatient Condition: Fair Time of Disposition: 16:05 Nausea/Vomiting/Diarrhea HPI - General Chief complaint: ED Nausea/Vomiting/Diarrhea Stated complaint: NVD Time Seen by Provider: 02/22/18 14:09 Source: patient, EMS Mode of arrival: EMS Limitations: no limitations Nursing Notes Reviewed: Yes Vital Signs Reviewed: Yes - History of Present Illness HPI Narrative: 72-year-old female history of end-stage renal disease dialysis Sunday Dr. Sánchez is her nephrologists presents emergency department via EMS for nausea vomiting diarrhea weakness. Symptoms have been ongoing for the past 2 days. She reports 3 loose nonbloody bowel movements with associated nausea and vomiting. Reports of diarrhea on Sunday and nausea, she was feeling weak and did not go to her dialysis on Sunday. She saw her primary care physician yesterday and they made some medication changes for her blood pressure. Today she continues to feel week with episode of loose stool and vomiting. Her nausea improved after getting Zofran at home. She has missed her dialysis on Sunday as well as today. She denies any abdominal pain. Denies any chest pain or shortness of breath. She feels weak. Denies history of cardiac ischemic disease. Reports a cough and runny nose as well as tactile fever. Denies any recent travel. She still makes urine denies any dysuria. Husbands at bedside states that patient was on peritoneal dialysis over the past 3 years and recently switched a hemodialysis. Pt Subjective Complaint: nausea, vomiting, diarrhea - Related Data Home Medications Medication Instructions Recorded Confirmed Lidocaine/Prilocaine [Emla] 1 appl TP ONCE PRN 10/09/16 02/22/18 Citalopram [CeleXA] 20 mg PO DAILY 03/30/17 02/22/18 Multivitamin [Multivitamins] 1 cap PO DAILY 09/03/17 02/22/18 Metoprolol Tartrate [Lopressor] 50 mg PO BID 02/22/18 02/22/18 cloNIDine HCl [CloNIDine HCl] 0.1 mg PO DAILY 02/22/18 02/22/18 Previous Rx's Medication Instructions Recorded Clopidogrel [Plavix] 75 mg PO DAILY tablet 10/16/16 Acetaminophen [Tylenol] 650 mg PO Q6HR PRN #30 tablet 09/10/17 Aspirin Enteric Coated [Aspirin EC] 81 mg PO DAILY #30 tablet. 01/22/18 amLODIPine [Norvasc] 10 mg PO DAILY #30 tablet 01/22/18 Allergies Allergy/AdvReac Type Severity Reaction Status Date / Time Penicillins Allergy Hives Verified 02/22/18 16:03 All systems ED: reviewed and negative except as stated. Review of Systems: As Per HPI Constitutional: Reports: fever. Denies: chills ENT ED: Denies: congestion Cardiovascular: Denies: chest pain, dyspnea on exertion Respiratory: Denies: cough, dyspnea Gastrointestinal: Reports: nausea, vomiting, diarrhea. Denies: abdominal pain, melena, hematochezia Genitourinary: Denies: urgency, dysuria Integumentary: Denies: rash, abrasion Neurological: Reports: headache Past Medical History - Past Medical History Medical history: Reports: coronary artery disease, diabetes, dialysis, hyperlipidemia, hypertension, renal disease, other Surgical history: Reports: carotid endarterectomy, hysterectomy, orthopedic, other, thyroidectomy, other (amputation left leg) Psychiatric history: Reports: anxiety, depression ROVING COURT REPORTER history: Reports: no ROVING COURT REPORTER history - Social History Smoking Status: Never smoker Smokeless Tobacco Status: No Alcohol use: Reports: none Drug use: Reports: none Physical Exam - General Limitations: no limitations General appearance: alert, in no apparent distress - Head Head exam: atraumatic, normocephalic, normal inspection - Eye Eye exam: Present: normal appearance, PERRL, EOMI - ENT ENT exam: normal exam, normal oropharynx, mucous membranes dry - Neck Neck exam: Present: normal inspection, full ROM, trachea midline - Chest Chest inspection: Present: normal inspection, symmetric chest wall rise - Respiratory Respiratory exam: Present: normal lung sounds bilaterally - Cardiovascular Cardiovascular exam: Present: regular rate, normal rhythm, normal heart sounds. Absent: systolic murmur, diastolic murmur - Abdominal Exam Abdominal exam: Present: soft, Non-Tender, normal bowel sounds. Absent: tenderness, distention, guarding, rebound, rigidity - Extremities Exam Extremities exam: Present: full ROM, normal capillary refill, other (fistula in the right AC, palpable thrill and audible bruit, left BKA). Absent: tenderness , pedal edema - Back Exam Back exam: Present: normal inspection, full ROM. Absent: tenderness, vertebral tenderness - Neurological Exam Neurological exam: Present: alert, oriented X3, CN II-XII intact - Expanded Neurological Exam Patient oriented to: Present: person, place, time Speech: Present: fluid speech Cranial nerves: EOM function (II, III, IV, ): Normal, facial sensation (V): Normal, facial palsy (VII): Normal, gag reflex (IX): Normal, spinal accessory function (XI): Normal, tongue deviation (XII): Normal Motor strength - LUE: 5/5 Motor strength - RUE: 5/5 Motor strength - LLE: 5/5 Motor strength - RLE: 5/5 - Psychiatric Psychiatric exam: Present: normal affect, normal mood - Skin Skin exam: Present: warm, dry, intact, normal color. Absent: rash, cyanosis, diaphoresis Course Course Narrative: Patient presents with some weakness nausea vomiting diarrhea and missing to hemodialysis appointments. On exam patient denies any abdominal pain. She is awake alert and oriented. She has a fistula on the right arm. EKG did shows peak T waves. Her potassium 6.4 in her creatinine is elevated at this exploit 9. She will require her dialysis later today. Will contact her database programmer Dr. Sánchez. At this time will give her calcium, glucose, insulin, albuterol continuous 10 mg and bicarb. Impression is hyperkalemia, end-stage renal disease. - Reevaluation(s) Reevaluation #1: Patient will be admitted for dialysis for her hyperkalemia. Patients in agreement with this plan. - Consultations Consultation #1: Spoke to Dr. Sánchez, agrees with admission for hemodialysis. Requests not to give Delay as she will get dialysis later. Okay with the temporizing measures including calcium bicarb insulin glucose and albuterol. Time: 16:04 Consultation #2: Spoke with on-call hospitalist Dr. Holder, ok to admit for weakness, hyperkalemia, and ESRD. No further orders at this time Time: 16:05 Vital Signs Temperature 98.2 F 02/22/18 14:19 Pulse Rate 70 02/22/18 14:19 Respiratory Rate 18 02/22/18 14:19 Blood Pressure 177/73 02/22/18 14:19 O2 Sat by Pulse Oximetry 94 02/22/18 14:19 Temperature 98.2 F 02/22/18 14:19 Pulse Rate 71 02/22/18 14:29 Respiratory Rate 18 02/22/18 14:29 Blood Pressure 177/73 02/22/18 14:29 O2 Sat by Pulse Oximetry 92 02/22/18 14:29 Oxygen Delivery Oxygen Delivery Nasal Cannula Nausea/Vomiting/Diarrhea - MDM Narrative Medical decision making narrative: Patient was discussed with my attending physician who agrees with ED management and final disposition. They independently evaluated the patient. Please refer to their attestation to this encounter for additional information. This note was generated by [employer] voice recognition software and as a result grammatical or spelling errors may occur using this program. - Medical Records Medical records reviewed: Yes I reviewed the patient's medical records. - Lab Data Lab results reviewed: Yes I reviewed the patient's lab results. Result diagrams: 02/22/18 14:23 02/22/18 14:23 Lab Results 02/22/18 02/22/18 Range/Units 14:23 14:23 WBC 8.1 (4.3-11.1) K/mcL RBC 3.41 L (3.82-4.97) M/mcL Hgb 11.7 (11.5-15.4) g/dL Hct 35.1 L (35.3-44.9) % MCV 102.9 H (83.0-100.0) fL MCH 34.3 H (28.0-33.3) pg MCHC 33.3 (31.6-35.5) g/dL RDW 14.8 H (11.5-14.5) % Plt Count 258 (140-400) K/mcL MPV 9.5 (9.4-12.4) fL Immature Gran % 0.4 (0-4) % Seg Neutrophils % 83.7 % Lymphocytes % 8.1 % Monocytes % 5.7 % Eosinophils % 1.6 % Basophils % 0.5 % Neutrophils # 6.8 (1.6-8.9) K/mcL Lymphocytes # 0.7 (0.6-4.6) K/mcL Monocytes # 0.5 (0.0-1.3) K/mcL Eosinophils # 0.1 (0.0-0.6) K/mcL Basophils # 0.0 (0.0-0.2) K/mcL Sodium 136 (136-145) mEq/L Potassium 6.4 H (3.5-5.1) mEq/L Chloride 100 (98-107) mEq/L Carbon Dioxide 23 (23-29) mEq/L BUN 55 H (8-23) mg/dL Creatinine 6.95 H (0.60-1.20) mg/dL Est GFR ( Amer) 7 L (> 60) Est GFR (Non-Af Amer) 6 L (> 60) BUN/Creatinine Ratio 8 (6-26) Glucose 110 H (70-105) mg/dL Calculated Osmolality 298 (280-300) Calcium 9.9 (8.6-10.3) mg/dL Total Bilirubin 0.4 (0.3-1.0) mg/dL Direct Bilirubin 0.2 (0.0-0.2) mg/dL Indirect Bilirubin 0.2 (0.0-1.2) mg/dL AST 15 (13-39) Units/L ALT 10 (7-52) Units/L Alkaline Phosphatase 89 (34-104) Units/L Troponin I < 0.03 (< 0.04) ng/mL Serum Total Protein 7.1 (6.4-8.9) g/dL Albumin 4.0 (3.5-5.7) g/dL Globulin 3.1 (2.4-3.5) g/dL Albumin/Globulin Ratio 1.3 (1.1-2.2) Lipase 26 (11-82) Units/L - EKG Data EKG attestation: Yes I reviewed and interpreted this EKG. EKG results narrative: EKG performed 1459 normal sinus rhythm 70 beats per minute, normal axis, incomplete right bundle branch block, no ST elevation or depression. QRS 100. T waves appear peaked in the lateral leads. No acute ischemic changes.
[2018-02-22 14:37] LABS: Basophils % 0.5 %; Eosinophils # 0.1 K/mcL (0.0-0.6); Eosinophils % 1.6 %; Hematocrit 35.1 % (35.3-44.9); Hemoglobin 11.7 g/dL (11.5-15.4); Immature Granulocytes % 0.4 % (0-4); Lymphocytes # 0.7 K/mcL (0.6-4.6); Lymphocytes % 8.1 %; Mean Corpuscular HGB Conc 33.3 g/dL (31.6-35.5); Mean Corpuscular Hemoglobin 34.3 pg (28.0-33.3); Mean Corpuscular Volume 102.9 fL (83.0-100.0); Mean Platelet Volume 9.5 fL (9.4-12.4); Monocytes # 0.5 K/mcL (0.0-1.3); Monocytes % 5.7 %; Neutrophils # 6.8 K/mcL (1.6-8.9); Platelet Count 258 K/mcL (140-400); Red Blood Count 3.41 M/mcL (3.82-4.97); Red Cell Distribution Width 14.8 % (11.5-14.5); Segmented Neutrophils % 83.7 %
[2018-02-22 14:56] LABS: Troponin I < 0.03 ng/mL (< 0.04)
[2018-02-22 14:57] LABS: Alanine Aminotransferase 10 Units/L (7-52); Albumin/Globulin Ratio 1.3 (1.1-2.2); Alkaline Phosphatase 89 Units/L (34-104); Aspartate Amino Transferase 15 Units/L (13-39); BUN/Creatinine Ratio 8 (6-26); Bilirubin,Direct 0.2 mg/dL (0.0-0.2); Bilirubin,Indirect 0.2 mg/dL (0.0-1.2); Bilirubin,Total 0.4 mg/dL (0.3-1.0); Blood Urea Nitrogen 55 mg/dL (8-23); Calcium 9.9 mg/dL (8.6-10.3); Carbon Dioxide 23 mEq/L (23-29); Chloride 100 mEq/L (98-107); Globulin 3.1 g/dL (2.4-3.5); Glucose 110 mg/dL (70-105); Lipase 26 Units/L (11-82); Osmolality,Calculated 298 (280-300); Potassium 6.4 mEq/L (3.5-5.1); Sodium 136 mEq/L (136-145); Total Protein 7.1 g/dL (6.4-8.9); eGFR For African Americans 7 (> 60); eGFR For Non-African Americans 6 (> 60)
[2018-02-22] MEDS ORDERED: Sodium Bicarbonate 50 MEQ/50 ML VIAL IVP ONE (15:34)
[2018-02-22] MEDS ORDERED: Albuterol 2.5 MG/3 ML NEBULIZER IH ONE (15:35)
[2018-02-22] MEDS ORDERED: *HR* Dextrose 50 % in Water (Syg) 50 ML SYRINGE IVP ONE (15:37)
[2018-02-22] MEDS ORDERED: Insulin Human Regular 10 UNIT in 0.9 % Sodium Chloride 10 ML IV ONE (15:37)
--- NOTE | 2018-02-22 16:49 | Nephrology Consult Note ---
Date of Encounter: 02/22/18 Time of Encounter: 16:00 Assessment and Plan (1) Hyperkalemia Current Visit: Yes Status: Acute Potassium noted elevated at 6.4 after missed HD, will dialyze with reduced potassium bath Repeat STAT potassium mid HD planned (2) End stage renal disease on dialysis Current Visit: Yes Status: Chronic HD with minimal UF given diarrhea Renal diet advised (3) Nausea and vomiting Current Visit: No Status: Acute Per primary team suspect viral illness Qualifiers: Vomiting type: unspecified Vomiting Intractability: unspecified Qualified Code(s): R11.2 - Nausea with vomiting, unspecified History of Present Illness - Reason for Consult Consult date: 02/22/18 end stage renal disease Requesting physician: Agustin Landeros - History of Present Illness 72 y o female w/ PMH of ESRD on HD, DM and HTN presenting to the ER with weakness and fatigue along with N/V. She was also noted with elevated potassium at 6.4 requiring urgent HD. She apparently missed her HD due to illness. She was seen and examined on HD appearing quite lethargic but able to answer questions. Denies any SOB or CP Past Med Surg Social Fam HX - Past Medical History Medical history: coronary artery disease, diabetes, dialysis, hyperlipidemia, hypertension, renal disease, other Additional medical history: hemodialysis, Psychiatric history: anxiety, depression - Past Surgical History Surgical History: carotid endarterectomy, hysterectomy, orthopedic, other, thyroidectomy, other (amputation left leg) Additional surgical history: LBKA, right digits removed - Social History Smoking Status: Never smoker Smokeless Tobacco Status: No Alcohol use: none Drug use: none - Family History Mother Adopted: No Family Member Ethnicity: Non- Living Status: Hx Family Cardiac Disorders: No Hx Family Respiratory Disorders: Yes Hx Family Cancer: Yes Hx Family GI Disorders: No Hx Family Endocrine Disorder: No Hx Family Neuromuscular Disorders: No Hx Family Neurologic Disorders: No Hx Family HEENT Disorders: No Hx Family Autoimmune Disorders: No Father Adopted: No Family Member Ethnicity: Non- Living Status: Hx Family Cardiac Disorders: Yes Hx Family Respiratory Disorders: Yes Hx Family Cancer: No Hx Family GI Disorders: No Hx Family Endocrine Disorder: Yes Hx Family Neuromuscular Disorders: No Hx Family Neurologic Disorders: Yes Hx Family HEENT Disorders: No Hx Family Autoimmune Disorders: No Medications and Allergies Lidocaine/Prilocaine [Emla] 1 appl TP ONCE PRN 10/09/16 [History] Clopidogrel [Plavix] 75 mg PO DAILY tablet 10/16/16 [Rx] Citalopram [CeleXA] 20 mg PO DAILY 03/30/17 [History] Multivitamin [Multivitamins] 1 cap PO DAILY 09/03/17 [History] Acetaminophen [Tylenol] 650 mg PO Q6HR PRN #30 tablet 09/10/17 [Rx] Aspirin Enteric Coated [Aspirin EC] 81 mg PO DAILY #30 tablet. 01/22/18 [Rx] amLODIPine [Norvasc] 10 mg PO DAILY #30 tablet 01/22/18 [Rx] Metoprolol Tartrate [Lopressor] 50 mg PO BID 02/22/18 [History] cloNIDine HCl [CloNIDine HCl] 0.1 mg PO DAILY 02/22/18 [History] 3 Allergy/AdvReac Type Severity Reaction Status Date / Time Penicillins Allergy Hives Verified 02/22/18 16:03 Review of Systems All Systems: reviewed and no additional remarkable complaints except as stated ( 10 systems reviewed and noted in HPI) Exam - Vital Signs Vital signs: Initial Vital Signs Temp Pulse Resp BP Pulse Ox 98.2 F 70 18 177/73 94 02/22/18 14:19 02/22/18 14:19 02/22/18 14:19 02/22/18 14:19 02/22/18 14:19 Vital Signs - Last 8 Hours Resp BP Pulse Ox 02/22/18 16:22 18 167/71 02/22/18 16:11 18 92 - General Appearance General appearance: chronically ill, fatigue, frail EENT: ATNC, mucous membranes moist Neck: no JVD, supple Respiratory: clear Cardiology: no edema (L BKA), normal S1, normal S2 - Dialysis Access Dialysis Vascular Access: Arteriovenous Fistula thrill: Yes bruit: Yes Gastrointestinal: no tenderness, no guarding Integumentary: warm and dry Neurologic: no focal deficit Musculoskeletal: no deformities Psychiatric: mood/affect appropriate, cooperative Results - Lab Results 02/23/18 03:15 02/23/18 03:15 Most recent lab results Calcium 9.9 mg/dL (8.6-10.3) 02/22/18 14:23 Consult Discharge Plan - Plan Referrals: Rudi Avila MD [Primary Care Provider] - (Please call Sunday Morning and make a 5-7 day hospital follow up)
[2018-02-22] MEDS ORDERED: 0.9 % Sodium Chloride 250 ML IVC PRN (17:09)
[2018-02-22] MEDS ORDERED: 0.9 % Sodium Chloride 1,000 ML PRIME SCH (17:15)
--- NOTE | 2018-02-22 17:26 | Emergency Department Note ---
Disposition Clinical Impression: ESRD (end stage renal disease) on dialysis, Hyperkalemia Disposition: Admitted As Inpatient Condition: Fair Referrals: Rudi Avila MD [Primary Care Provider] - General Adult HPI - General Chief complaint: ED Nausea/Vomiting/Diarrhea Stated complaint: NVD Time Seen by Provider: 02/22/18 14:09 Source: patient, EMS Mode of arrival: EMS Limitations: no limitations Nursing Notes Reviewed: Yes Vital Signs Reviewed: Yes - History of Present Illness Pain Scale: 0 - Related Data Home Medications Medication Instructions Recorded Confirmed Lidocaine/Prilocaine [Emla] 1 appl TP ONCE PRN 10/09/16 02/22/18 Citalopram [CeleXA] 20 mg PO DAILY 03/30/17 02/22/18 Multivitamin [Multivitamins] 1 cap PO DAILY 09/03/17 02/22/18 Metoprolol Tartrate [Lopressor] 50 mg PO BID 02/22/18 02/22/18 cloNIDine HCl [CloNIDine HCl] 0.1 mg PO DAILY 02/22/18 02/22/18 Previous Rx's Medication Instructions Recorded Clopidogrel [Plavix] 75 mg PO DAILY tablet 10/16/16 Acetaminophen [Tylenol] 650 mg PO Q6HR PRN #30 tablet 09/10/17 Aspirin Enteric Coated [Aspirin EC] 81 mg PO DAILY #30 tablet. 01/22/18 amLODIPine [Norvasc] 10 mg PO DAILY #30 tablet 01/22/18 Allergies Allergy/AdvReac Type Severity Reaction Status Date / Time Penicillins Allergy Hives Verified 02/22/18 16:03 Constitutional: Reports: fever. Denies: chills ENT ED: Denies: congestion Cardiovascular: Denies: chest pain, dyspnea on exertion Respiratory: Denies: cough, dyspnea Gastrointestinal: Reports: nausea, vomiting, diarrhea. Denies: abdominal pain, melena, hematochezia Genitourinary: Denies: urgency, dysuria Integumentary: Denies: rash, abrasion Neurological: Reports: headache Past Medical History - Past Medical History Medical history: Reports: coronary artery disease, diabetes, dialysis, hyperlipidemia, hypertension, renal disease, other Surgical history: Reports: carotid endarterectomy, hysterectomy, orthopedic, other, thyroidectomy, other (amputation left leg) Psychiatric history: Reports: anxiety, depression MANAGEMENT ADVISOR history: Reports: no MANAGEMENT ADVISOR history - Social History Smoking Status: Never smoker Smokeless Tobacco Status: No Alcohol use: Reports: none Drug use: Reports: none Physical Exam - General Limitations: no limitations General appearance: alert, in no apparent distress Course Vital Signs Temperature 98.2 F 02/22/18 14:19 Pulse Rate 70 02/22/18 14:19 Respiratory Rate 18 02/22/18 14:19 Blood Pressure 177/73 02/22/18 14:19 O2 Sat by Pulse Oximetry 94 02/22/18 14:19 Temperature 98.2 F 02/22/18 14:19 Pulse Rate 71 02/22/18 14:29 Respiratory Rate 18 02/22/18 16:22 Blood Pressure 167/71 02/22/18 16:22 O2 Sat by Pulse Oximetry 92 02/22/18 16:11 Oxygen Delivery Oxygen Delivery Nasal Cannula Medical Decision Making - Lab Data Result diagrams: 02/22/18 14:23 02/22/18 14:23 Lab Results 02/22/18 02/22/18 Range/Units 14:23 14:23 WBC 8.1 (4.3-11.1) K/mcL RBC 3.41 L (3.82-4.97) M/mcL Hgb 11.7 (11.5-15.4) g/dL Hct 35.1 L (35.3-44.9) % MCV 102.9 H (83.0-100.0) fL MCH 34.3 H (28.0-33.3) pg MCHC 33.3 (31.6-35.5) g/dL RDW 14.8 H (11.5-14.5) % Plt Count 258 (140-400) K/mcL MPV 9.5 (9.4-12.4) fL Immature Gran % 0.4 (0-4) % Seg Neutrophils % 83.7 % Lymphocytes % 8.1 % Monocytes % 5.7 % Eosinophils % 1.6 % Basophils % 0.5 % Neutrophils # 6.8 (1.6-8.9) K/mcL Lymphocytes # 0.7 (0.6-4.6) K/mcL Monocytes # 0.5 (0.0-1.3) K/mcL Eosinophils # 0.1 (0.0-0.6) K/mcL Basophils # 0.0 (0.0-0.2) K/mcL Sodium 136 (136-145) mEq/L Potassium 6.4 H (3.5-5.1) mEq/L Chloride 100 (98-107) mEq/L Carbon Dioxide 23 (23-29) mEq/L BUN 55 H (8-23) mg/dL Creatinine 6.95 H (0.60-1.20) mg/dL Est GFR ( Amer) 7 L (> 60) Est GFR (Non-Af Amer) 6 L (> 60) BUN/Creatinine Ratio 8 (6-26) Glucose 110 H (70-105) mg/dL Calculated Osmolality 298 (280-300) Calcium 9.9 (8.6-10.3) mg/dL Total Bilirubin 0.4 (0.3-1.0) mg/dL Direct Bilirubin 0.2 (0.0-0.2) mg/dL Indirect Bilirubin 0.2 (0.0-1.2) mg/dL AST 15 (13-39) Units/L ALT 10 (7-52) Units/L Alkaline Phosphatase 89 (34-104) Units/L Troponin I < 0.03 (< 0.04) ng/mL Serum Total Protein 7.1 (6.4-8.9) g/dL Albumin 4.0 (3.5-5.7) g/dL Globulin 3.1 (2.4-3.5) g/dL Albumin/Globulin Ratio 1.3 (1.1-2.2) Lipase 26 (11-82) Units/L Attestation Statement - Attestation Attestation: I, Terrance Garcia, examined this patient and my medical decision-making was reviewed with the [facility]/PA/Advanced Practice Nurse/Resident Physician. I agree with the documented findings, disposition and treatment plan as described except to the extent set forth below. 72-year-old female presents emergency Department with concerns of weakness, fatigue, nausea and vomiting over the past 2-3 days. Patient attends dialysis Sunday, Sunday, Sunday with Dr. Sánchez. She states that she did not feel well on Sunday but not make her session. She also did not go to the session today. Patient states that this is occurred multiple times in the past. She denies chest pain, shortness of breath, abdominal pain, diarrhea. Patient does not have abdominal pain on exam emergency department. Vital signs are within normal limits. Patient nausea improved after taking Zofran at home. Patient creatinine was 6.5 on laboratory evaluation. Resident spoke with Dr. Sánchez who agreed with the plan for admission to the hospital for dialysis and further observation.
[2018-02-22 18:40] LABS: Hepatitis B Surface Antigen Nonreactive (Nonreactive)
[2018-02-22 18:45] LABS: Hepatitis B Surface Antibody 12.93 mIU/mL
[2018-02-22] MEDS ORDERED: Acetaminophen 325 MG TABLET PO PRN (19:51)
--- NOTE | 2018-02-22 21:06 | Internal Med History&Physical ---
Date of Encounter: 02/22/18 Time of Encounter: 21:06 Internal Medicine - H&P: HPI Chief complaint: Diarrahea History of present illness: Ms. Eng is a 72 year old female with PMH of ESRD on HD MWwho presented with nausea vomiting diarrhea and weakness. Her nausea improved after getting Zofran at home. She has missed her dialysis on Sunday as well as today. She denies any abdominal pain. Denies any chest pain or shortness of breath. She feels weak. Denies history of cardiac ischemic disease. She was evaluated by ER and pat labs revealed hyperkalemia with ECG changes, she was admitted for further evaluation. Past Med Surg Social Fam HX - Past Medical History Medical history: coronary artery disease, diabetes, dialysis, hyperlipidemia, hypertension, renal disease, other Additional medical history: hemodialysis, Psychiatric history: anxiety, depression - Past Surgical History Surgical History: carotid endarterectomy, hysterectomy, orthopedic, other, thyroidectomy, other (amputation left leg) Additional surgical history: LBKA, right digits removed - Social History Smoking Status: Never smoker Smokeless Tobacco Status: No Alcohol use: none Drug use: none - Family History Mother Adopted: No Family Member Ethnicity: Non- Living Status: Hx Family Cardiac Disorders: No Hx Family Respiratory Disorders: Yes Hx Family Cancer: Yes Hx Family GI Disorders: No Hx Family Endocrine Disorder: No Hx Family Neuromuscular Disorders: No Hx Family Neurologic Disorders: No Hx Family HEENT Disorders: No Hx Family Autoimmune Disorders: No Father Adopted: No Family Member Ethnicity: Non- Living Status: Hx Family Cardiac Disorders: Yes Hx Family Respiratory Disorders: Yes Hx Family Cancer: No Hx Family GI Disorders: No Hx Family Endocrine Disorder: Yes Hx Family Neuromuscular Disorders: No Hx Family Neurologic Disorders: Yes Hx Family HEENT Disorders: No Hx Family Autoimmune Disorders: No Internal Medicine - H&P: Meds Lidocaine/Prilocaine [Emla] 1 appl TP ONCE PRN 10/09/16 [History] Clopidogrel [Plavix] 75 mg PO DAILY tablet 10/16/16 [Rx] Citalopram [CeleXA] 20 mg PO DAILY 03/30/17 [History] Multivitamin [Multivitamins] 1 cap PO DAILY 09/03/17 [History] Acetaminophen [Tylenol] 650 mg PO Q6HR PRN #30 tablet 09/10/17 [Rx] Aspirin Enteric Coated [Aspirin EC] 81 mg PO DAILY #30 tablet. 01/22/18 [Rx] amLODIPine [Norvasc] 10 mg PO DAILY #30 tablet 01/22/18 [Rx] Metoprolol Tartrate [Lopressor] 50 mg PO BID 02/22/18 [History] cloNIDine HCl [CloNIDine HCl] 0.1 mg PO DAILY 02/22/18 [History] 3 Allergy/AdvReac Type Severity Reaction Status Date / Time Penicillins Allergy Hives Verified 02/22/18 16:03 All Systems PM: A 10-system review of systems was performed and is negative for pertinent findings except as documented above in the HPI. - Constitutional Constitutional: fatigue, malaise, no chills, no fever(s), no night sweats - Cardiovascular Cardiovascular ROS IM: no chest pain, no diaphoresis, no dyspnea, no lightheadedness, no palpitations, no syncope - Respiratory Respiratory: no cough, no dyspnea, no wheezing, no excessive phlegm production - Gastrointestinal Gastrointestinal: diarrhea, nausea, vomiting, no abdominal pain, no hematemesis , no hematochezia, no melena - Neurological Neurological ROS: no confusion, no convulsions, no focal weakness, no numbness, no tingling, no tremor(s) - Constitutional Vitals: Temp Pulse Resp BP Pulse Ox 98.1 F 71 18 177/75 92 02/22/18 20:28 02/22/18 14:29 02/22/18 20:28 02/22/18 20:28 02/22/18 16:11 Internal Med - H&P Results - Labs CBC & Chem 7: 02/22/18 14:23 02/22/18 18:00 Labs: BMP 02/22/18 18:00 Potassium 3.3 L D - Assessment and plan (1) Hypokalemia Current Visit: No Status: Acute Assessment and plan: She was treated medically in ER , Nephrology with provide HD today. (2) Diabetes mellitus Current Visit: No Status: Chronic Assessment and plan: We will Cont home meds. Qualifiers: Diabetes mellitus type: type 2 Diabetes mellitus alf insulin use: with intermediate manager use Diabetes mellitus complication status: with kidney complications Diabetes mellitus complication detail: with chronic kidney disease Chronic kidney disease stage: on chronic dialysis Qualified Code(s) : E11.22 - Type 2 diabetes mellitus with diabetic chronic kidney disease; N18.6 - End stage renal disease; Z79.4 - joint terminal attack controller (current) use of insulin; Z99.2 - Dependence on renal dialysis (3) ESRD on peritoneal dialysis Current Visit: No Status: Chronic (4) Anemia Current Visit: No Status: Chronic Qualifiers: Anemia type: unspecified type Qualified Code(s): D64.9 - Anemia, unspecified (5) Anemia in chronic kidney disease Current Visit: No Status: Chronic Qualifiers: Chronic kidney disease stage: on chronic dialysis Qualified Code(s): N18.6 - End stage renal disease; D63.1 - Anemia in chronic kidney disease; D63.1 - Anemia in chronic kidney disease; Z99.2 - Dependence on renal dialysis; Z99.2 - Dependence on renal dialysis; Z99.2 - Dependence on renal dialysis; Z99.2 - Dependence on renal dialysis (6) Hypertension Current Visit: No Status: Chronic Qualifiers: Hypertension type: renovascular hypertension Qualified Code(s): I15.0 - Renovascular hypertension (7) Diarrhea Current Visit: No Status: Acute Assessment and plan: associated with N,V, most likely 2/2 gastroenteritis and improving Qualifiers: Diarrhea type: infectious Qualified Code(s): A09 - Infectious gastroenteritis and colitis, unspecified (8) DVT prophylaxis Current Visit: No Status: Acute Assessment and plan: Heparin 5000 BID - Time Spent With Patient Total time spent is greater than 50% in coordination of care (as documented) at patient's floor/unit and/or counseling patient:
[2018-02-22] MEDS ORDERED: Naloxone 0.4 MG/ML INJ IVP PRN (21:34)
[2018-02-22 23:03] LABS: INR 1.1; Prothrombin Time 12.3 Seconds (9.4-12.1)
[2018-02-22 23:05] LABS: Activated Partial Thrombo Time 28.4 Seconds (26.0-36.0)
[2018-02-23] MEDS: *HR* HYDROcodone/Acet 5/325 mg TABLET PO PRN ×2 (03:36→10:07)
[2018-02-23 04:54] LABS: Basophils # 0.1 K/mcL (0.0-0.2); Basophils % 0.7 %; Eosinophils # 0.1 K/mcL (0.0-0.6); Eosinophils % 0.8 %; Hematocrit 31.5 % (35.3-44.9); Hemoglobin 10.4 g/dL (11.5-15.4); Immature Granulocytes % 0.3 % (0-4); Lymphocytes # 0.7 K/mcL (0.6-4.6); Mean Corpuscular Hemoglobin 34.3 pg (28.0-33.3); Mean Platelet Volume 9.9 fL (9.4-12.4); Monocytes # 0.5 K/mcL (0.0-1.3); Monocytes % 6.9 %; Neutrophils # 5.9 K/mcL (1.6-8.9); Platelet Count 240 K/mcL (140-400); Red Blood Count 3.03 M/mcL (3.82-4.97); Segmented Neutrophils % 82.3 %
[2018-02-23 05:23] LABS: Albumin 3.5 g/dL (3.5-5.7); Albumin/Globulin Ratio 1.2 (1.1-2.2); Bilirubin,Total 0.4 mg/dL (0.3-1.0); Calcium 9.5 mg/dL (8.6-10.3); Chol/HDL Ratio 3.1 (0-4.9); Globulin 2.9 g/dL (2.4-3.5); Potassium 4.2 mEq/L (3.5-5.1); Total Protein 6.4 g/dL (6.4-8.9)
[2018-02-23] MEDS ORDERED: *HR* Heparin 5,000 UNIT/ML VIAL SQ SCH (06:00)
[2018-02-23 11:21] VITALS: BP 156/67
--- NOTE | 2018-02-23 12:02 | Discharge Summary ---
- NOTES TO OUTPATIENT PROVIDER Notes to Outpatient Provider: Follow up routine HD as scheduled Orders not resulted at time of discharge: Pending orders 02/24/18 04:00 CMP [Comprehensive Metabolic Panel] AM 0400 Complete Blood Count [HEME] AM 0400 Date of Encounter: 02/23/18 Time of Encounter: 09:00 - Discharge Diagnosis (1) ESRD on peritoneal dialysis Priority: Primary Status: Chronic Assessment and Plan: Missed her last HD. Had got it since admission. Will discharge to continue f/u with nephro and resume scheduled HD. (2) Hypokalemia Priority: Secondary Status: Acute Assessment and Plan: Resolved, likely 2/2 diarrhea/gastroenteritis (3) Diabetes mellitus Priority: Secondary Status: Chronic Assessment and Plan: BS controlled. Continue home medications Qualifiers: Diabetes mellitus type: type 2 Diabetes mellitus superintendent container terminal insulin use: with shelter use Diabetes mellitus complication status: with kidney complications Diabetes mellitus complication detail: with chronic kidney disease Chronic kidney disease stage: on chronic dialysis Qualified Code(s) : E11.22 - Type 2 diabetes mellitus with diabetic chronic kidney disease; N18.6 - End stage renal disease; Z79.4 - USP (current) use of insulin; Z99.2 - Dependence on renal dialysis (4) Diarrhea Priority: Secondary Status: Acute Qualifiers: Diarrhea type: infectious Qualified Code(s): A09 - Infectious gastroenteritis and colitis, unspecified (5) Hypertension Priority: Secondary Status: Chronic Assessment and Plan: C/w home medication Qualifiers: Hypertension type: renovascular hypertension Qualified Code(s): I15.0 - Renovascular hypertension Hospital course: Ms. Eng is a 72 year old female with PMH ESRD on HD MWF, HTN presented to the ED with complaints of n/v and weakness and had missed her last HD session. She received dialysis inpatient with IVF repletion with reported resolution of symptoms, likely 2/2 gastroenteritis. Reports feeling well now. Will discharge to follow up with PMD and continue scheduled dialysis. Discharge discussed with: patient, family, nurse - Time Spent with Patient Total time spent providing and/or coordinating discharge services: Greater than 30 minutes - Discharge Medications Home Medications: Lidocaine/Prilocaine [Emla] 1 appl TP ONCE PRN 10/09/16 [History] Clopidogrel [Plavix] 75 mg PO DAILY tablet 10/16/16 [Rx] Citalopram [CeleXA] 20 mg PO DAILY 03/30/17 [History] Multivitamin [Multivitamins] 1 cap PO DAILY 09/03/17 [History] Acetaminophen [Tylenol] 650 mg PO Q6HR PRN #30 tablet 09/10/17 [Rx] Aspirin Enteric Coated [Aspirin EC] 81 mg PO DAILY #30 tablet. 01/22/18 [Rx] amLODIPine [Norvasc] 10 mg PO DAILY #30 tablet 01/22/18 [Rx] Metoprolol Tartrate [Lopressor] 50 mg PO BID 02/22/18 [History] cloNIDine HCl [CloNIDine HCl] 0.1 mg PO DAILY 02/22/18 [History] Allergies/Adverse Reactions: 3 Allergy/AdvReac Type Severity Reaction Status Date / Time Penicillins Allergy Hives Verified 02/22/18 16:03 Date of admission: 02/22/18 21:34 Primary care physician: Rudi Avila MD - Constitutional Vitals: Temp Pulse Resp BP Pulse Ox 98.1 F 66 16 156/67 98 02/23/18 11:18 02/23/18 11:18 02/23/18 11:18 02/23/18 11:18 02/23/18 11:18 Exam: General: Alert and oriented Skin: Normal color, no rash, no lesions. HEENT: EOMI, pupils equal, round and reactive. Cardiovascular: Regular rate, regular rythm. No murmurs appreciated. Lungs:Normal breath sounds, no wheezes or crackles. Abdomen:Soft, non-tender, no rigidity. Extremities:No deformity, no edema or tenderness, no joint swelling or clubbing. Neurological:Normal cognition, no weakness, no numbness. Rest of the physical exam is non contributory - Patient Status Disposition: Home, Self-Care Overall status at discharge: patient is progressing back to baseline - Discharge Instructions Follow Up With: Rudi Avila MD [Primary Care Provider] - - Diet and Activity Activity: resume usual activities as tolerated
--- NOTE | 2018-02-23 14:33 | Nephrology Progress Note ---
Date of Encounter: 02/23/18 Time of Encounter: 10:00 - Assessment and Plan (1) Hyperkalemia Current Visit: Yes Status: Acute Resolved at 4.2 after HD Continue renal diet (2) End stage renal disease on dialysis Current Visit: Yes Status: Chronic Next HD planned on sunday Subjective Interval history: Pt sen and examined this am with at bedside now back to baseline and eager to be discharged Objective - Vital Signs Vital signs: Vital Signs Temp Pulse Resp BP Pulse Ox 02/23/18 11:18 98.1 F 66 16 156/67 98 02/23/18 07:06 97.8 F 71 16 158/71 98 02/23/18 03:17 97.9 F 84 17 173/74 97 02/22/18 23:12 98.2 F 88 17 173/73 100 Intake and Output 02/22/18 02/23/18 02/23/18 23:59 07:59 15:59 Intake Total 240 / 240 Balance 240 / 240 Intake: Oral 240 / 240 Other: Meal Lunch Percent of Meal Consumed 60% Weight 67.9 kg - General Appearance General appearance: Present: chronically ill (NAD) EENT: Present: ATNC, mucous membranes moist Neck: Present: no JVD, supple Respiratory: Present: clear Cardiology: Present: no edema, normal S1, normal S2 Gastrointestinal: Present: no tenderness, no guarding Integumentary: Present: warm and dry Neurologic: Present: no focal deficit Musculoskeletal: Present: no deformities Psychiatric: Present: mood/affect appropriate - Lab 02/23/18 03:15 02/23/18 03:15 Most recent lab results Calcium 9.5 mg/dL (8.6-10.3) 02/23/18 03:15 Phosphorus 5.0 mg/dL (2.7-4.5) H 02/23/18 03:15 Magnesium 2.0 mg/dL (1.6-2.6) 02/23/18 03:15 Consult Discharge Plan - Plan Referrals: Rudi Avila MD [Primary Care Provider] - (Please call Sunday Morning and make a 5-7 day hospital follow up)
--- NOTE | 2018-02-25 13:03 | Electrocardiograph Report ---
[place] [id number] Test Date: 2018-02-22 Pat Name: Zenaida Eng Department: 104 Room: 2A14 Gender: F Auditor Medical Claims: AM : 1945 Requested By: Agustin Landeros Order Number: [id number] Reading MD: Fabián Mack Measurements Intervals [place] Rate: 70 P: 33 IN: 154 QRS: 16 QRSD: 100 T: 16 QT: 428 QTc: 449 Interpretive Statements SINUS RHYTHM INDETERMINATE AXIS INCOMPLETE RIGHT BUNDLE BRANCH BLOCK Electronically Signed On 02-25-2018 13:02:19 EDT by Fabián Mack
== END 2018-02-23 15:42 | disposition home or self-care (01) | DRG 391 ==
LOC: 2ANU 14:07 → EMEROO 14:07 → 2ANU 16:32 → SUATTDRO 21:34
PROVIDERS: ADMIT Internal Medicine Nephrology; ATTEND Student in an Organized Health Care Education/Training Program

== ENCOUNTER 2018-04-09 07:27 | Observation (INO) ==
[2018-04-09] MEDS ORDERED: Metoclopramide 10 MG/2 ML VIAL IVP ONE (07:37)
[2018-04-09 08:20] LABS: Basophils % 0.6 %; Eosinophils # 0.3 K/mcL (0.0-0.6); Eosinophils % 3.8 %; Hematocrit 36.8 % (35.3-44.9); Hemoglobin 13.1 g/dL (11.5-15.4); Immature Granulocytes % 0.3 % (0-4); Lymphocytes # 0.7 K/mcL (0.6-4.6); Lymphocytes % 10.7 %; Mean Corpuscular HGB Conc 35.6 g/dL (31.6-35.5); Mean Corpuscular Hemoglobin 34.7 pg (28.0-33.3); Mean Corpuscular Volume 97.6 fL (83.0-100.0); Mean Platelet Volume 9.8 fL (9.4-12.4); Monocytes # 0.5 K/mcL (0.0-1.3); Monocytes % 7.5 %; Platelet Count 211 K/mcL (140-400); Red Blood Count 3.77 M/mcL (3.82-4.97); Red Cell Distribution Width 13.3 % (11.5-14.5); Segmented Neutrophils % 77.1 %
[2018-04-09 08:39] LABS: Albumin 3.9 g/dL (3.5-5.7); Albumin/Globulin Ratio 1.2 (1.1-2.2); Bilirubin,Total 0.3 mg/dL (0.3-1.0); Calcium 8.9 mg/dL (8.6-10.3); Globulin 3.3 g/dL (2.4-3.5); Potassium 3.5 mEq/L (3.5-5.1); Total Protein 7.2 g/dL (6.4-8.9)
[2018-04-09 08:58] LABS: Bilirubin,Urine Negative (Negative); Blood,Urine Moderate (Negative); Clarity,Urine Cloudy (Clear); Color,Urine Yellow (Yellow); Glucose,Urine (UA) 100 mg/dL (Normal); Ketones,Urine Negative (Negative); Leukocyte Esterase,Urine Large (Negative); Nitrite,Urine Negative (Negative); Protein,Urine >=300 mg/dL (Neg-Trace); Specific Gravity,Urine 1.011 (1.010-1.025); Urobilinogen,Urine Normal (Normal)
[2018-04-09 09:01] LABS: Bacteria,Urine None Seen per hpf (None-Few); Hyaline Casts,Urine None Seen per lpf (None-Few); RBC,Urine 15-30 per hpf (0-3); Squamous Epithelial Cell,Urine None Seen per lpf (None-Few); WBC,Urine 30-50 per hpf (0-3)
[2018-04-09] MEDS ORDERED: *HR* HYDROcodone/Acet 5/325 mg TABLET PO ONE (09:32)
--- NOTE | 2018-04-09 12:06 | Emergency Department Note ---
Disposition Clinical Impression: Headache Qualifiers: Headache type: unspecified Headache chronicity pattern: unspecified pattern Intractability: not intractable Qualified Code(s): R51 - Headache Disposition: Home, Self-Care Condition: Good Instructions: General Headache (ED) Prescriptions: Acetaminophen/Butalbital/Caffe [Fioricet] 1 each PO Q6HR #10 tablet Referrals: Rudi Avila MD [Primary Care Provider] - General Adult HPI - General Chief complaint: ED Headache Stated complaint: Headache Time Seen by Provider: 04/09/18 07:31 Source: patient, EMS Limitations: no limitations Nursing Notes Reviewed: Yes Vital Signs Reviewed: Yes - History of Present Illness HPI Narrative: 72-year-old female presents with a headache from dialysis. She reports that her headache onset was 4 days ago. She has no history of aneurysm or tumor. She states her headache was gradual in onset and progressively worsening to the point where she cannot complete her dialysis. She has no fever, meningismus on examination. The headache started in the front and is now going into the back of her head. She has no focal neurological deficit. General: No acute distress HEENT: Pupils equal and reactive to light, extraoccular muscle movement is normal, TMS are clear bilaterally. Heart: RRR, No murmor rub or gallop Lungs: lungs clear, no wheezing, rales or ronchi. ABD: SNT, no focal areas or tenderness, no guarding or rebound tenderness. Extremities: No cyanosis, clubbing or edema Neuro: CN 2-12 in tact, no focal deficit. strength 5/5. Medical decision making The patient does have renal failure, she does still make urine, as such I decided to avoid doing contrast load with CT scan and proceed with MRI of her brain to rule out aneurysm or other small mass effect which would be causing her headache. 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 This is not a critical stenosis however does warrant follow-up on an outpatient basis. She does have other small findings of remote stroke which are not acute and are unlikely related to her headache currently. Her headache is resolved. I would encourage continuation of her dialysis on an outpatient basis, discharge, which relates are stable, follow-up with recheck and return instructions. Pain Scale: 5 - Related Data Home Medications Medication Instructions Recorded Confirmed Lidocaine/Prilocaine [Emla] 1 appl TP ONCE PRN 10/09/16 04/09/18 Citalopram [CeleXA] 20 mg PO DAILY 03/30/17 04/09/18 Multivitamin [Multivitamins] 1 cap PO DAILY 09/03/17 04/09/18 Metoprolol Tartrate [Lopressor] 50 mg PO BID 02/22/18 04/09/18 cloNIDine HCl [CloNIDine HCl] 0.1 mg PO DAILY 02/22/18 04/09/18 amLODIPine [Norvasc] 5 mg PO BID 04/09/18 04/09/18 Previous Rx's Medication Instructions Recorded Clopidogrel [Plavix] 75 mg PO DAILY tablet 10/16/16 Acetaminophen [Tylenol] 650 mg PO Q6HR PRN #30 tablet 09/10/17 Aspirin Enteric Coated [Aspirin EC] 81 mg PO DAILY #30 tablet. 01/22/18 Acetaminophen/Butalbital/Caffe 1 each PO Q6HR #10 tablet 04/09/18 [Fioricet] Allergies Allergy/AdvReac Type Severity Reaction Status Date / Time Penicillins Allergy Hives Verified 02/22/18 16:03 All systems ED: reviewed and negative except as stated. Past Medical History - Past Medical History Medical history: Reports: coronary artery disease, diabetes, dialysis, hyperlipidemia, hypertension, renal disease, other Surgical history: Reports: carotid endarterectomy, hysterectomy, orthopedic, other, thyroidectomy, other (amputation left leg) Psychiatric history: Reports: anxiety, depression BRICK GRADER history: Reports: no BRICK GRADER history - Social History Smoking Status: Never smoker Smokeless Tobacco Status: No Alcohol use: Reports: none Drug use: Reports: none Physical Exam - General Limitations: no limitations General appearance: alert Course Vital Signs Temperature 98.4 F 04/09/18 07:30 Pulse Rate 66 04/09/18 07:30 Respiratory Rate 18 04/09/18 07:30 Blood Pressure 172/52 04/09/18 07:30 O2 Sat by Pulse Oximetry 100 04/09/18 07:30 Temperature 98.4 F 04/09/18 07:30 Pulse Rate 75 04/09/18 11:33 Respiratory Rate 16 04/09/18 11:33 Blood Pressure 165/76 04/09/18 11:33 O2 Sat by Pulse Oximetry 95 04/09/18 11:33 Oxygen Delivery Oxygen Delivery Room Air Medical Decision Making - Lab Data Result diagrams: 04/09/18 07:42 04/09/18 07:42 Lab Results 04/09/18 04/09/18 04/09/18 Range/Units 07:42 07:42 08:45 WBC 6.5 (4.3-11.1) K/mcL RBC 3.77 L (3.82-4.97) M/mcL Hgb 13.1 (11.5-15.4) g/dL Hct 36.8 (35.3-44.9) % MCV 97.6 (83.0-100.0) fL MCH 34.7 H (28.0-33.3) pg MCHC 35.6 H (31.6-35.5) g/dL RDW 13.3 (11.5-14.5) % Plt Count 211 (140-400) K/mcL MPV 9.8 (9.4-12.4) fL Immature Gran % 0.3 (0-4) % Seg Neutrophils % 77.1 % Lymphocytes % 10.7 % Monocytes % 7.5 % Eosinophils % 3.8 % Basophils % 0.6 % Neutrophils # 5.0 (1.6-8.9) K/mcL Lymphocytes # 0.7 (0.6-4.6) K/mcL Monocytes # 0.5 (0.0-1.3) K/mcL Eosinophils # 0.3 (0.0-0.6) K/mcL Basophils # 0.0 (0.0-0.2) K/mcL Sodium 135 L (136-145) mEq/L Potassium 3.5 (3.5-5.1) mEq/L Chloride 96 L (98-107) mEq/L Carbon Dioxide 27 (23-29) mEq/L BUN 27 H (8-23) mg/dL Creatinine 4.11 H (0.60-1.20) mg/dL Est GFR ( Amer) 13 L (> 60) Est GFR (Non-Af Amer) 11 L (> 60) BUN/Creatinine Ratio 7 (6-26) Glucose 105 (70-105) mg/dL Calculated Osmolality 285 (280-300) Calcium 8.9 (8.6-10.3) mg/dL Total Bilirubin 0.3 (0.3-1.0) mg/dL AST 14 (13-39) Units/L ALT 9 (7-52) Units/L Alkaline Phosphatase 92 (34-104) Units/L Serum Total Protein 7.2 (6.4-8.9) g/dL Albumin 3.9 (3.5-5.7) g/dL Globulin 3.3 (2.4-3.5) g/dL Albumin/Globulin Ratio 1.2 (1.1-2.2) Urine Color Yellow (Yellow) Urine Clarity Cloudy A (Clear) Urine pH 8.0 (5.0-8.0) pH Units Ur Specific Carbon 1.011 (1.010-1.025) Urine Protein >=300 H (Neg-Trace) mg/dL Urine Glucose (UA) 100 H (Normal) mg/dL Urine Ketones Negative (Negative) mg/dL Urine Blood Moderate H (Negative) Urine Nitrite Negative (Negative) Urine Bilirubin Negative (Negative) Urine Urobilinogen Normal (Normal) mg/dL Ur Leukocyte Esterase Large H (Negative) Urine Microscopic RBC 15-30 H (0-3) per hpf Urine Microscopic WBC 30-50 H (0-3) per hpf Ur Squamous Epith Cells None Seen (None-Few) per lpf Urine Bacteria None Seen (None-Few) per hpf Hyaline Casts None Seen (None-Few) per lpf Ur Culture Indicated? YES A (NO)
[2018-04-09] MEDS ORDERED: Valproic Acid INJ 500 MG in 0.9 % Sodium Chloride 100 ML IVPB ONE (12:19)
[2018-04-09] MEDS ORDERED: Dexamethasone 4 MG/ML VIAL IVP ONE (13:28)
[2018-04-09] MEDS ORDERED: Naloxone 0.4 MG/ML INJ IVP PRN (14:20)
[2018-04-09] MEDS ORDERED: Acetaminophen 325 MG TABLET PO PRN (14:22)
--- NOTE | 2018-04-09 14:51 | Internal Med History&Physical ---
Date of Encounter: 04/09/18 Time of Encounter: 15:30 Internal Medicine - H&P: HPI Chief complaint: headache Admitted From: Home History of present illness: Ms. Eng is a 72 year old female with past medical history of ESRD on hemodialysis, CAD, CVA, hypertension, presented to the ED with 2-3 months history of headache that was acutely worsening for the last 4 days. History is limited as the patient is somnolent from the meds she received in the ED. Pt reports that it started in the C-spine region and radiated to the front. Gradual in onset, progressively worsening to the point where she is not able to tolerate HD. Initially associated with nausea but no vomiting. Unable to tell me much about photo-/phonophobia. Denies fever/chills, blurring of vision, neck stiffness, diplopia, dysarthria, dysphagia, or focal weakness/numbness. No GI/ symptoms. In the ED, she was afebrile and hemodynamically stable. Lab workup was essentially unremarkable. Patient underwent CT head, MRI brain, and MRA of the neck which did not reveal any acute cranial processes and only showed 60% R ICA stenosis. She was medicated with Benadryl, Reglan, [place], magnesium sulfate, dexamethasone, and valproic acid with minimal improvement in her headache and was therefore admitted for observation overnight. Past Med Surg Social Fam HX - Past Medical History Attestation: Yes The following information was validated with the patient. Medical history: coronary artery disease, diabetes, dialysis, hyperlipidemia, hypertension, renal disease, other Additional medical history: hemodialysis Psychiatric history: anxiety, depression - Past Surgical History Surgical History: carotid endarterectomy, hysterectomy, orthopedic, other, thyroidectomy, other (amputation left leg) Additional surgical history: LBKA, right digits removed - Social History Smoking Status: Never smoker Smokeless Tobacco Status: No Alcohol use: none Drug use: none - Family History Mother Adopted: No Family Member Ethnicity: Non- Living Status: Hx Family Cardiac Disorders: No Hx Family Respiratory Disorders: Yes Hx Family Cancer: Yes Hx Family GI Disorders: No Hx Family Endocrine Disorder: No Hx Family Neuromuscular Disorders: No Hx Family Neurologic Disorders: No Hx Family HEENT Disorders: No Hx Family Autoimmune Disorders: No Father Adopted: No Family Member Ethnicity: Non- Living Status: Hx Family Cardiac Disorders: Yes Hx Family Respiratory Disorders: Yes Hx Family Cancer: No Hx Family GI Disorders: No Hx Family Endocrine Disorder: Yes Hx Family Neuromuscular Disorders: No Hx Family Neurologic Disorders: Yes Hx Family HEENT Disorders: No Hx Family Autoimmune Disorders: No Internal Medicine - H&P: Meds Lidocaine/Prilocaine [Emla] 1 appl TP ONCE PRN 10/09/16 [History] Clopidogrel [Plavix] 75 mg PO DAILY tablet 10/16/16 [Rx] Citalopram [CeleXA] 20 mg PO DAILY 03/30/17 [History] Multivitamin [Multivitamins] 1 cap PO DAILY 09/03/17 [History] Acetaminophen [Tylenol] 650 mg PO Q6HR PRN #30 tablet 09/10/17 [Rx] Aspirin Enteric Coated [Aspirin EC] 81 mg PO DAILY #30 tablet. 01/22/18 [Rx] Metoprolol Tartrate [Lopressor] 50 mg PO BID 02/22/18 [History] cloNIDine HCl [CloNIDine HCl] 0.1 mg PO DAILY 02/22/18 [History] Acetaminophen/Butalbital/Caffe [Fioricet] 1 each PO Q6HR #10 tablet 04/09/18 [Rx ] amLODIPine [Norvasc] 5 mg PO DAILY 04/09/18 [History] 3 Allergy/AdvReac Type Severity Reaction Status Date / Time Penicillins Allergy Hives Verified 02/22/18 16:03 All Systems PM: A 10-system review of systems was performed and is negative for pertinent findings except as documented above in the HPI. - Constitutional Vitals: Temp Pulse Resp BP Pulse Ox 98.4 F 72 16 174/70 95 04/09/18 07:30 04/09/18 13:55 04/09/18 13:55 04/09/18 13:55 04/09/18 13:55 Exam: General: Alert and oriented but somnolent HEENT:EOM, pupils equal, round and reactive. Cardiovascular:Normal S1 & S2, No JVD. Pulse regular. Lungs: clear to auscultation, no wheezes/rales Abdomen:Soft, non-tender, no rigidity. Extremities:No deformity or swelling Neurological: CN II-XII intact, power and sensation full in all 4 limbs. No cerebellar signs. No pronator drift. Babinski downgoing. Skin:Normal color, no rash, no lesions. Pulses:Carotid and radial pulses normal +2. Rest of the physical exam is non contributory Internal Med - H&P Results - Labs CBC & Chem 7: 04/09/18 07:42 04/09/18 07:42 - Assessment and plan (1) Headache Current Visit: Yes Status: Acute Assessment and plan: intractable headache despite multiple medications in the ED personal history of migraine also points to her neck where the pain originated ?cervicogenic headache Workup was unrevealing will try triptan PRN to abort headache tonight -> if unsuccessful, would consider neck imaging Qualifiers: Headache type: unspecified Headache chronicity pattern: unspecified pattern Intractability: intractable Qualified Code(s): R51 - Headache (2) CAD (coronary artery disease) Current Visit: No Status: Chronic Assessment and plan: Asymptomatic, continue home meds Qualifiers: Coronary Disease-Associated Artery/Lesion type: [place] artery [place] vs. transplanted heart: [place] heart Associated angina: with stable angina Qualified Code(s): I25.118 - Atherosclerotic heart disease of [place] coronary artery with other forms of angina pectoris (3) Hypertension Current Visit: No Status: Chronic Assessment and plan: Continue Norvasc, clonidine, and metoprolol. hydralazine PRN may consider increasing the dose of clonidine or switch metoprolol to coreg Qualifiers: Hypertension type: renovascular hypertension Qualified Code(s): I15.0 - Renovascular hypertension (4) ESRD (end stage renal disease) on dialysis Current Visit: No Status: Chronic Assessment and plan: On hemodialysis TThSat Volume status are acceptable, no electrolyte abnormalities. If she stays till , would consult nephrology for inpatient HD support (5) DVT prophylaxis Current Visit: No Status: Acute Assessment and plan: SCDs - Time Spent With Patient Total time spent is greater than 50% in coordination of care (as documented) at patient's floor/unit and/or counseling patient:
[2018-04-09] MEDS ORDERED: Ondansetron 4 MG/2 ML VIAL IVP PRN (15:32)
[2018-04-09] MEDS ORDERED: SUMAtriptan succinate 25 MG TABLET PO PRN (16:42)
[2018-04-10 05:50] LABS: Hemoglobin 12.6 g/dL (11.5-15.4); Mean Corpuscular Hemoglobin 33.4 pg (28.0-33.3); Mean Corpuscular Volume 95.5 fL (83.0-100.0); Mean Platelet Volume 9.9 fL (9.4-12.4); Platelet Count 217 K/mcL (140-400); Red Blood Count 3.77 M/mcL (3.82-4.97); Red Cell Distribution Width 13.3 % (11.5-14.5)
[2018-04-10 06:19] LABS: Calcium 9.7 mg/dL (8.6-10.3); Potassium 4.6 mEq/L (3.5-5.1)
[2018-04-10] MEDS ORDERED: 0.9 % Sodium Chloride 250 ML IVC PRN (07:13)
[2018-04-10] MEDS ORDERED: 0.9 % Sodium Chloride 1,000 ML PRIME SCH (07:15)
[2018-04-10] MEDS ORDERED: 0.9 % Sodium Chloride 1,000 ML ONE (08:29)
[2018-04-10] MEDS ORDERED: Multivit/Ca/Min/Fe/FA 1 TAB TABLET PO SCH (09:00)
[2018-04-10] MEDS ORDERED: amLODIPine 5 MG TABLET PO SCH ×2 (09:00)
[2018-04-10] MEDS ORDERED: cloNIDine HCl 0.1 MG TABLET PO SCH (09:00)
[2018-04-10] MEDS ORDERED: Aspirin Enteric Coated 81 MG Tablet PO SCH (09:00)
[2018-04-10] MEDS: cloNIDine HCl 0.1 MG TABLET PO SCH ×2 (09:28)
[2018-04-10 11:06] VITALS: BP 178/71
--- NOTE | 2018-04-10 11:38 | Discharge Summary ---
- NOTES TO OUTPATIENT PROVIDER Notes to Outpatient Provider: Patient admitted for intractable headache likely due to migraine and uncontrolled hypertension. Imaging studies were unremarkable. Started on when necessary Imitrex and the dose of clonidine was increased to 0.1 mg twice a day. May benefit from switching Toprol to Coreg for HTN. Orders not resulted at time of discharge: Pending orders 04/11/18 04:00 Basic Metabolic Panel AM 0400 CBC no Diff [Complete Blood Count w/o Diff] [HEME] [place] 04004/12/18 04:00 Basic Metabolic Panel AM 040 CBC no Diff [Complete Blood Count w/o Diff] [HEME] AM 39904/13/18 04:00 Basic Metabolic Panel AM 040 CBC no Diff [Complete Blood Count w/o Diff] [HEME] AM 04004/14/18 04:00 Basic Metabolic Panel AM 0400 CBC no Diff [Complete Blood Count w/o Diff] [HEME] AM 04004/15/18 04:00 Basic Metabolic Panel AM 040 CBC no Diff [Complete Blood Count w/o Diff] [HEME] AM 040 Date of Encounter: 04/10/18 Time of Encounter: 09:00 - Discharge Diagnosis (1) Headache Priority: Primary Status: Acute Qualifiers: Headache type: unspecified Headache chronicity pattern: unspecified pattern Intractability: intractable Qualified Code(s): R51 - Headache (2) CAD (coronary artery disease) Priority: Secondary Status: Chronic Qualifiers: Coronary Disease-Associated Artery/Lesion type: [place] artery [place] vs. transplanted heart: [place] heart Associated angina: with stable angina Qualified Code(s): I25.118 - Atherosclerotic heart disease of [place] coronary artery with other forms of angina pectoris (3) Hypertension Priority: Secondary Status: Chronic Qualifiers: Hypertension type: renovascular hypertension Qualified Code(s): I15.0 - Renovascular hypertension (4) ESRD (end stage renal disease) on dialysis Priority: Secondary Status: Chronic (5) DVT prophylaxis Priority: Secondary Status: Acute Hospital course: Ms. Eng is a 72 year old female with past medical history of ESRD on hemodialysis, CAD, CVA, hypertension, presented to the ED with 2-3 months history of headache that was acutely worsening for the last 4 days. Imaging studies including the MRA were unremarkable. It was refractory to Benadryl, Reglan, [place], magnesium sulfate, dexamethasone, and valproic acid that were given in the ED hence she was admitted for observation overnight. She was given 1 dose of Imitrex overnight which gave her symptomatic relief. Her BP was noted to be elevated during her stay but she also endorsed that she occasionally get hypotensive episodes during HD as well (as low as 80/60s). Therefore, only a slight change to her anti-HTN meds were made -> clonidine increased from 0.1mg QD to BID. She was discharged in stable condition on 04/10. - Time Spent with Patient Total time spent providing and/or coordinating discharge services: Greater than 30 minutes - Discharge Medications Prescriptions: cloNIDine HCl [CloNIDine HCl] 0.1 mg PO BID #60 tablet SUMAtriptan succinate [Imitrex] 25 mg PO Q2H PRN #30 tablet PRN Reason: Migraine Headache Home Medications: Lidocaine/Prilocaine [Emla] 1 appl TP ONCE PRN 10/09/16 [History] Clopidogrel [Plavix] 75 mg PO DAILY tablet 10/16/16 [Rx] Citalopram [CeleXA] 20 mg PO DAILY 03/30/17 [History] Multivitamin [Multivitamins] 1 cap PO DAILY 09/03/17 [History] Acetaminophen [Tylenol] 650 mg PO Q6HR PRN #30 tablet 09/10/17 [Rx] Aspirin Enteric Coated [Aspirin EC] 81 mg PO DAILY #30 tablet. 01/22/18 [Rx] Metoprolol Tartrate [Lopressor] 50 mg PO BID 02/22/18 [History] SUMAtriptan succinate [Imitrex] 25 mg PO Q2H PRN #30 tablet 04/10/18 [Rx] amLODIPine [Norvasc] 5 mg PO BID #0 04/10/18 [Rx] cloNIDine HCl [CloNIDine HCl] 0.1 mg PO BID #60 tablet 04/10/18 [Rx] Allergies/Adverse Reactions: 3 Allergy/AdvReac Type Severity Reaction Status Date / Time Penicillins Allergy Hives Verified 02/22/18 16:03 Date of admission: 04/09/18 13:41 Primary care physician: Rudi Avila MD Consults: 04/10/18 07:15 Consult to Dialysis [CONS] ONCE - Constitutional Vitals: Temp Pulse Resp BP Pulse Ox 97.7 F 71 16 178/71 91 04/10/18 11:04 04/10/18 11:04 04/10/18 11:04 04/10/18 11:04 04/10/18 11:04 Exam: General: Alert and oriented, not in distress HEENT:EOM, pupils equal, round and reactive. Cardiovascular:Normal S1 & S2, No JVD. Pulse regular. Lungs: clear to auscultation, no wheezes/rales Abdomen:Soft, non-tender, no rigidity. Extremities:No deformity or swelling Neurological: CN II-XII intact, power and sensation full in all 4 limbs. No cerebellar signs. No pronator drift. Babinski downgoing. Skin:Normal color, no rash, no lesions. Pulses:Carotid and radial pulses normal +2. - Patient Status Disposition: Home, Self-Care Condition: Good Functional capacity at discharge: independent ambulation Overall status at discharge: patient is progressing back to baseline - Discharge Instructions Instructions: Anemia (GEN) Follow Up With: Rudi Avila MD [Primary Care Provider] - - Diet and Activity Activity: resume usual activities as tolerated Diet: advance to your usual diet
== END 2018-04-10 13:12 | disposition home or self-care (01) ==
LOC: EMEROOARM 07:27 → 2ANU 07:27 → SUATTDRO 13:41 → 2ANU 15:45
PROVIDERS: ADMIT Internal Medicine; ATTEND Internal Medicine

== ENCOUNTER 2018-05-12 13:01 | Inpatient (IN) ==
[2018-05-12] MEDS ORDERED: 0.9 % Sodium Chloride 500 ML IVC ONE (13:16)
[2018-05-12 14:01] LABS: Basophils % 0.4 %; Eosinophils # 0.1 K/mcL (0.0-0.6); Eosinophils % 1.1 %; Hematocrit 32.6 % (35.3-44.9); Hemoglobin 11.3 g/dL (11.5-15.4); Immature Granulocytes % 0.5 % (0-4); Lymphocytes # 0.5 K/mcL (0.6-4.6); Lymphocytes % 5.5 %; Mean Corpuscular HGB Conc 34.7 g/dL (31.6-35.5); Mean Corpuscular Volume 100.9 fL (83.0-100.0); Mean Platelet Volume 9.4 fL (9.4-12.4); Monocytes # 0.6 K/mcL (0.0-1.3); Monocytes % 6.3 %; Neutrophils # 8.4 K/mcL (1.6-8.9); Platelet Count 220 K/mcL (140-400); Red Blood Count 3.23 M/mcL (3.82-4.97); Red Cell Distribution Width 14.2 % (11.5-14.5); Segmented Neutrophils % 86.2 %
[2018-05-12 14:07] LABS: INR 1.1; Prothrombin Time 12.3 Seconds (9.4-12.1)
[2018-05-12 14:09] LABS: Activated Partial Thrombo Time 29.5 Seconds (26.0-36.0)
[2018-05-12 14:29] LABS: Albumin 4.1 g/dL (3.5-5.7); Albumin/Globulin Ratio 1.2 (1.1-2.2); Bilirubin,Direct 0.2 mg/dL (0.0-0.2); Bilirubin,Indirect 0.3 mg/dL (0.0-1.2); Bilirubin,Total 0.5 mg/dL (0.3-1.0); Calcium 9.6 mg/dL (8.6-10.3); Globulin 3.4 g/dL (2.4-3.5); Magnesium 2.1 mg/dL (1.6-2.6); Phosphorous 6.1 mg/dL (2.7-4.5); Potassium 5.1 mEq/L (3.5-5.1); Total Protein 7.5 g/dL (6.4-8.9)
[2018-05-12 14:48] LABS: Troponin I 0.25 ng/mL (< 0.04)
--- NOTE | 2018-05-12 15:06 | Emergency Department Note ---
Disposition Clinical Impression: Hypoxia, Weakness Dyspnea Qualifiers: Dyspnea type: unspecified Qualified Code(s): R06.00 - Dyspnea, unspecified Disposition: Admitted As Inpatient Condition: Fair Referrals: Rudi Avila MD [Primary Care Provider] - Forms: ED Satisfaction Letter General Adult HPI - General Chief complaint: ED Shortness of Breath/Dyspnea Stated complaint: dyspnea Time Seen by Provider: 05/12/18 13:01 Source: patient, EMS Mode of arrival: EMS Limitations: no limitations Nursing Notes Reviewed: Yes Vital Signs Reviewed: Yes - History of Present Illness HPI Narrative: 72-year-old female with complex past medical history including end-stage renal disease currently on dialysis Sunday, and Sunday presenting to the emergency department chief complaint of overall not feeling well. Patient states for the past week she has not been feeling well and has had a cough. She states she has felt weak and has had episodes of sweating and chills at home. Yesterday she was only able to complete 2 of her 4 hours of dialysis due to not feeling well. Today her was concerned about her having shortness of breath and checked her pulse oximetry which showed 80% on room air. Patient does not have any known lung pathology. Patient normally does not wear oxygen. They called EMS to further evaluation. When EMS arrived they placed her on 4 L nasal cannula and brought her up to the mid 90s. Patient denies any chest pain or abdominal pain. Denies any vomiting but does disclose nausea. Pain Scale: 0 - Related Data Home Medications Medication Instructions Recorded Confirmed Lidocaine/Prilocaine [Emla] 1 appl TP ONCE PRN 10/09/16 04/09/18 Citalopram [CeleXA] 20 mg PO DAILY 03/30/17 04/09/18 Multivitamin [Multivitamins] 1 cap PO DAILY 09/03/17 04/09/18 Metoprolol Tartrate [Lopressor] 50 mg PO BID 02/22/18 04/09/18 Previous Rx's Medication Instructions Recorded Clopidogrel [Plavix] 75 mg PO DAILY tablet 10/16/16 Acetaminophen [Tylenol] 650 mg PO Q6HR PRN #30 tablet 09/10/17 Aspirin Enteric Coated [Aspirin EC] 81 mg PO DAILY #30 tablet. 01/22/18 SUMAtriptan succinate [Imitrex] 25 mg PO Q2H PRN #30 tablet 04/10/18 amLODIPine [Norvasc] 5 mg PO BID #0 04/10/18 cloNIDine HCl [CloNIDine HCl] 0.1 mg PO BID #60 tablet 04/10/18 Allergies Allergy/AdvReac Type Severity Reaction Status Date / Time Penicillins Allergy Hives Verified 02/22/18 16:03 All systems ED: reviewed and negative except as stated. Constitutional: Reports: fever (subjective), chills, weakness Eyes: Reports: as per HPI ENT ED: Reports: as per HPI Cardiovascular: Denies: chest pain, palpitations Respiratory: Reports: cough. Denies: wheezes, hemoptysis Gastrointestinal: Reports: nausea. Denies: vomiting, diarrhea Genitourinary: Reports: as per HPI Musculoskeletal: Reports: as per HPI Integumentary: Reports: as per HPI Neurological: Denies: numbness, paresthesias Psychiatric: Reports: as per HPI Endocrine: Reports: as per HPI Hematological/Lymphatic: Reports: as per HPI Allergic/Immunologic: Reports: as per HPI Past Medical History - Past Medical History Attestation: Yes The following information was validated with the patient. Medical history: Reports: coronary artery disease, diabetes, dialysis, hyperlipidemia, hypertension, renal disease, other Surgical history: Reports: carotid endarterectomy, hysterectomy, orthopedic, other, thyroidectomy, other (amputation left leg) Psychiatric history: Reports: anxiety, depression INSOLE DOUBLER history: Reports: no INSOLE DOUBLER history - Social History Smoking Status: Never smoker Smokeless Tobacco Status: No Alcohol use: Reports: none Drug use: Reports: none Physical Exam - General Limitations: no limitations General appearance: alert, in no apparent distress - Head Head exam: atraumatic, normocephalic, normal inspection - Eye Eye exam: Present: normal appearance. Absent: scleral icterus, conjunctival injection - ENT ENT exam: mucous membranes dry - Neck Neck exam: Present: normal inspection, full ROM. Absent: tenderness, meningismus - Chest Chest inspection: Present: normal inspection, symmetric chest wall rise. Absent : tenderness, rash - Respiratory Respiratory exam: Present: other (Coarse breath sounds bilaterally) - Cardiovascular Cardiovascular exam: Present: normal rhythm, tachycardia, normal heart sounds - Abdominal Exam Abdominal exam: Present: soft, Non-Tender. Absent: distention, guarding, rebound - Extremities Exam Extremities exam: Absent: tenderness - Neurological Exam Neurological exam: Present: alert, oriented X3 - Psychiatric Psychiatric exam: Present: normal affect, normal mood - Skin Skin exam: Present: warm, intact Course Course Narrative: 72-year-old female presenting to the emergency department with chief complaint of hypoxia and weakness. Patient states for the past week she has not been feeling well. End-stage renal disease on dialysis. Physical exam shows coarse breath sounds throughout and dry mucous membranes. Patient is tachycardic but otherwise hemodynamically stable. She is alert and oriented 3. We will obtain basic laboratory analysis to rule out any source of sepsis. Including urine, chest x-ray and basic labs. Disposition most likely admission but pending results. Patient agrees with this plan. - Reevaluation(s) Reevaluation #1: Patient's laboratory analysis shows elevated troponin at 0.25. Also elevated BNP. Due to patient's hypoxia and tachycardia CTA of the chest was completed. This was after spoke with her environmental technology professor Dr. Mcwilliams who agreed to dialyze the patient tomorrow. CTA did not show any pulmonary embolus. Bilateral pleural effusion with pulmonary edema. Hypoxia most likely due to CHF exacerbation and fluid overload. At this time will plan to admit the patient for further evaluation and dialysis. Patient remains alert and oriented 3 in the room in hemodynamically stable. Patient agrees with this plan. I spoke with the hospitalist national park tour guide Dr. Culp who agrees to accept the patient at this time. Vital Signs Temperature 98.3 F 05/12/18 13:05 Pulse Rate 103 05/12/18 13:05 Respiratory Rate 18 05/12/18 13:05 Blood Pressure 164/68 05/12/18 13:05 O2 Sat by Pulse Oximetry 92 05/12/18 13:05 Temperature 98.3 F 05/12/18 13:05 Pulse Rate 103 05/12/18 13:05 Respiratory Rate 18 05/12/18 13:05 Blood Pressure 164/68 05/12/18 13:05 O2 Sat by Pulse Oximetry 96 05/12/18 13:12 Oxygen Delivery Oxygen Delivery Nasal Cannula Medical Decision Making - Lab Data Result diagrams: 05/12/18 13:50 05/12/18 13:50 Lab Results 05/12/18 05/12/18 05/12/18 Range/Units 13:50 13:50 13:50 WBC 9.8 (4.3-11.1) K/mcL RBC 3.23 L (3.82-4.97) M/mcL Hgb 11.3 L (11.5-15.4) g/dL Hct 32.6 L (35.3-44.9) % MCV 100.9 H (83.0-100.0) fL MCH 35.0 H (28.0-33.3) pg MCHC 34.7 (31.6-35.5) g/dL RDW 14.2 (11.5-14.5) % Plt Count 220 (140-400) K/mcL MPV 9.4 (9.4-12.4) fL Immature Gran % 0.5 (0-4) % Seg Neutrophils % 86.2 % Lymphocytes % 5.5 % Monocytes % 6.3 % Eosinophils % 1.1 % Basophils % 0.4 % Neutrophils # 8.4 (1.6-8.9) K/mcL Lymphocytes # 0.5 L (0.6-4.6) K/mcL Monocytes # 0.6 (0.0-1.3) K/mcL Eosinophils # 0.1 (0.0-0.6) K/mcL Basophils # 0.0 (0.0-0.2) K/mcL PT 12.3 H (9.4-12.1) Seconds INR 1.1 APTT 29.5 (26.0-36.0) Seconds Sodium 136 (136-145) mEq/L Potassium 5.1 (3.5-5.1) mEq/L Chloride 97 L (98-107) mEq/L Carbon Dioxide 23 (23-29) mEq/L BUN 38 H (8-23) mg/dL Creatinine 5.23 H (0.60-1.20) mg/dL Est GFR ( Amer) 10 L (> 60) Est GFR (Non-Af Amer) 8 L (> 60) BUN/Creatinine Ratio 7 (6-26) Glucose 116 H (70-105) mg/dL Calculated Osmolality 292 (280-300) Lactic Acid (0.5-2.2) mmol/L Calcium 9.6 (8.6-10.3) mg/dL Phosphorus 6.1 H (2.7-4.5) mg/dL Magnesium 2.1 (1.6-2.6) mg/dL Total Bilirubin 0.5 (0.3-1.0) mg/dL Direct Bilirubin 0.2 (0.0-0.2) mg/dL Indirect Bilirubin 0.3 (0.0-1.2) mg/dL AST 17 (13-39) Units/L ALT 11 (7-52) Units/L Alkaline Phosphatase 101 (34-104) Units/L Troponin I 0.25 H* (< 0.04) ng/mL B-Natriuretic Peptide (Less than 100) pg/mL Serum Total Protein 7.5 (6.4-8.9) g/dL Albumin 4.1 (3.5-5.7) g/dL Globulin 3.4 (2.4-3.5) g/dL Albumin/Globulin Ratio 1.2 (1.1-2.2) Urine Color (Yellow) Urine Clarity (Clear) Urine pH (5.0-8.0) pH Units Ur Specific [place] (1.010-1.025) Urine Protein (Neg-Trace) mg/dL Urine Glucose (UA) (Normal) mg/dL Urine Ketones (Negative) mg/dL Urine Blood (Negative) Urine Nitrite (Negative) Urine Bilirubin (Negative) Urine Urobilinogen (Normal) mg/dL Ur Leukocyte Esterase (Negative) Urine Microscopic RBC (0-3) per hpf Urine Microscopic WBC (0-3) per hpf Ur Squamous Epith Cells (None-Few) per lpf Ur Transition Epith Cell (None-Few) per hpf Ur Renal Epithelial Cell (None-Few) per hpf Urine Bacteria (None-Few) per hpf Hyaline Casts (None-Few) per lpf Ur Culture Indicated? (NO) 05/12/18 05/12/18 05/12/18 Range/Units 13:50 15:05 15:42 WBC (4.3-11.1) K/mcL RBC (3.82-4.97) M/mcL Hgb (11.5-15.4) g/dL Hct (35.3-44.9) % MCV (83.0-100.0) fL MCH (28.0-33.3) pg MCHC (31.6-35.5) g/dL RDW (11.5-14.5) % Plt Count (140-400) K/mcL MPV (9.4-12.4) fL Immature Gran % (0-4) % Seg Neutrophils % % Lymphocytes % % Monocytes % % Eosinophils % % Basophils % % Neutrophils # (1.6-8.9) K/mcL Lymphocytes # (0.6-4.6) K/mcL Monocytes # (0.0-1.3) K/mcL Eosinophils # (0.0-0.6) K/mcL Basophils # (0.0-0.2) K/mcL PT (9.4-12.1) Seconds INR APTT (26.0-36.0) Seconds Sodium (136-145) mEq/L Potassium (3.5-5.1) mEq/L Chloride (98-107) mEq/L Carbon Dioxide (23-29) mEq/L BUN (8-23) mg/dL Creatinine (0.60-1.20) mg/dL Est GFR ( Amer) (> 60) Est GFR (Non-Af Amer) (> 60) BUN/Creatinine Ratio (6-26) Glucose (70-105) mg/dL Calculated Osmolality (280-300) Lactic Acid 1.7 (0.5-2.2) mmol/L Calcium (8.6-10.3) mg/dL Phosphorus (2.7-4.5) mg/dL Magnesium (1.6-2.6) mg/dL Total Bilirubin (0.3-1.0) mg/dL Direct Bilirubin (0.0-0.2) mg/dL Indirect Bilirubin (0.0-1.2) mg/dL AST (13-39) Units/L ALT (7-52) Units/L Alkaline Phosphatase (34-104) Units/L Troponin I (< 0.04) ng/mL B-Natriuretic Peptide 2795 H (Less than 100) pg/mL Serum Total Protein (6.4-8.9) g/dL Albumin (3.5-5.7) g/dL Globulin (2.4-3.5) g/dL Albumin/Globulin Ratio (1.1-2.2) Urine Color Yellow (Yellow) Urine Clarity Clear (Clear) Urine pH 8.0 (5.0-8.0) pH Units Ur Specific [place] < 1.005 L (1.010-1.025) Urine Protein >=300 H (Neg-Trace) mg/dL Urine Glucose (UA) 100 H (Normal) mg/dL Urine Ketones Negative (Negative) mg/dL Urine Blood Small H (Negative) Urine Nitrite Negative (Negative) Urine Bilirubin Negative (Negative) Urine Urobilinogen Normal (Normal) mg/dL Ur Leukocyte Esterase Large H (Negative) Urine Microscopic RBC 3-5 H (0-3) per hpf Urine Microscopic WBC 15-30 H (0-3) per hpf Ur Squamous Epith Cells Many H (None-Few) per lpf Ur Transition Epith Cell Few (None-Few) per hpf Ur Renal Epithelial Cell Few (None-Few) per hpf Urine Bacteria Few (None-Few) per hpf Hyaline Casts None Seen (None-Few) per lpf Ur Culture Indicated? NO. A (NO) - EKG Data EKG #1 EKG attestation: Yes I reviewed and interpreted this EKG. EKG results narrative: Sinus tachycardia. 102 bpm. PA interval 127, curettes 99, QTC 495. No sign of acute ST segment elevation or ischemia. ST depression noted in leads V4, V5. Compared to previous EKG completed on 02/22/2018 no significant changes noted Attestation Statement - Attestation Attestation: I, Terrance Garcia, examined this patient and my medical decision-making was reviewed with the MANAGER [employer]Y DUTY/PA/Advanced Practice Nurse/Resident Physician. I agree with the documented findings, disposition and treatment plan as described except to the extent set forth below. 72-year-old female presents emergency Department with concerns of shortness of breath. Patient states the shortness of breath is been worsening over the past week. Denies fever, chills, nausea, vomiting, diarrhea, chest pain, palpitations, syncope. checked the O2 saturation at home and found it to be 80%, they called EMS who put her on oxygen which resulted to the mid 90s. On physical exam the patient has lungs that are clear to auscultation bilaterally. She was tachycardic on initial evaluation. We are concern for possible infectious etiology of her symptoms however chest x-ray did not show obvious infiltrate and laboratory evaluation did not show evidence of leukocytosis. Patient did have elevation of her creatinine however this was near her baseline as she is a dialysis patient. Patient states that she ended her most recent dialysis session 1 hour early secondary to right arm pain. Patient had elevation of her troponin which is new compared to previous labs. Because of the patient's tachycardia and hypoxia we will obtain a CTA of the chest to rule out PE. We spoke with the environmental technology professor, Dr. Navarrete who is covering for Dr. Sánchez who agreed with the plan for CTA and patient will receive dialysis in the a.m. Imaging is pending at this time however patient will likely be admitted to the hospital for further care and evaluation.
[2018-05-12 15:15] LABS: Bilirubin,Urine Negative (Negative); Blood,Urine Small (Negative); Color,Urine Yellow (Yellow); Glucose,Urine (UA) 100 mg/dL (Normal); Ketones,Urine Negative (Negative); Leukocyte Esterase,Urine Large (Negative); Nitrite,Urine Negative (Negative); Protein,Urine >=300 mg/dL (Neg-Trace); Specific Gravity,Urine < 1.005 (1.010-1.025); Urobilinogen,Urine Normal (Normal)
[2018-05-12 15:17] LABS: Hyaline Casts,Urine None Seen per lpf (None-Few); Squamous Epithelial Cell,Urine Many per lpf (None-Few); WBC,Urine 15-30 per hpf (0-3)
[2018-05-12 15:19] LABS: Clarity,Urine Clear (Clear)
[2018-05-12] MEDS ORDERED: Isovue-370 500 ML INFUS..BTL IV ONE (15:42)
[2018-05-12 16:03] LABS: Bacteria,Urine Few per hpf (None-Few); Renal Epithelial Cells,Urine Few per hpf (None-Few); Transitional Epi Cells,Urine Few per hpf (None-Few)
[2018-05-12] MEDS ORDERED: Naloxone 0.4 MG/ML INJ IVP PRN (19:19)
[2018-05-12] MEDS ORDERED: Ondansetron 4 MG/2 ML VIAL IVP PRN (19:24)
--- NOTE | 2018-05-12 19:32 | Internal Med History&Physical ---
Date of Encounter: 05/12/18 Time of Encounter: 18:30 Internal Medicine - H&P: HPI Chief complaint: Shortness of breath Admitted From: Home Plans for Post Hospital Care: Home History of present illness: Ms. Eng is a 72 year old female with past medical history significant for end stage renal disease on dialysis, congestive heart failure, hypertension, migraine, depression, and migraines who presents for 3-4 day history of shortness of breath, nausea, vomiting, non productive cough, fever (unknown actual temperature), chills, generalized aches, generalized weakness, and decreased PO intake getting progressively worse. Denies chest pain, abdominal pain, urinary changes, diarrhea, or headache. Receives dialysis Sunday, , Sunday. Reportedly has not received a full session in the last two weeks due to arm pain while receiving dialysis on same arm as fistula. Reportedly still produces urine of unknown amount but states she urinates around three times per day. Patient discussed with Dr Culp. Past Med Surg Social Fam HX - Past Medical History Medical history: coronary artery disease, diabetes, dialysis, hyperlipidemia, hypertension, renal disease, other Additional medical history: hemodialysis Psychiatric history: anxiety, depression - Past Surgical History Surgical History: carotid endarterectomy, hysterectomy, orthopedic, other, thyroidectomy, other (amputation left leg) Additional surgical history: [facility], right digits removed - Social History Smoking Status: Never smoker Smokeless Tobacco Status: No Alcohol use: none Drug use: none - Family History Mother Adopted: No Family Member Ethnicity: Non- Living Status: Hx Family Cardiac Disorders: No Hx Family Respiratory Disorders: Yes Hx Family Cancer: Yes Hx Family GI Disorders: No Hx Family Endocrine Disorder: No Hx Family Neuromuscular Disorders: No Hx Family Neurologic Disorders: No Hx Family HEENT Disorders: No Hx Family Autoimmune Disorders: No Father Adopted: No Family Member Ethnicity: Non- Living Status: Hx Family Cardiac Disorders: Yes Hx Family Respiratory Disorders: Yes Hx Family Cancer: No Hx Family GI Disorders: No Hx Family Endocrine Disorder: Yes Hx Family Neuromuscular Disorders: No Hx Family Neurologic Disorders: Yes Hx Family HEENT Disorders: No Hx Family Autoimmune Disorders: No Internal Medicine - H&P: Meds Lidocaine/Prilocaine [Emla] 1 appl TP ONCE PRN 10/09/16 [History] Clopidogrel [Plavix] 75 mg PO DAILY tablet 10/16/16 [Rx] Citalopram [CeleXA] 20 mg PO DAILY 03/30/17 [History] Multivitamin [Multivitamins] 1 cap PO DAILY 09/03/17 [History] Acetaminophen [Tylenol] 650 mg PO Q6HR PRN #30 tablet 09/10/17 [Rx] Aspirin Enteric Coated [Aspirin EC] 81 mg PO DAILY #30 tablet. 01/22/18 [Rx] Metoprolol Tartrate [Lopressor] 50 mg PO BID 02/22/18 [History] SUMAtriptan succinate [Imitrex] 25 mg PO Q2H PRN #30 tablet 04/10/18 [Rx] amLODIPine [Norvasc] 5 mg PO BID #0 04/10/18 [Rx] cloNIDine HCl [CloNIDine HCl] 0.1 mg PO BID #60 tablet 04/10/18 [Rx] 3 Allergy/AdvReac Type Severity Reaction Status Date / Time Penicillins Allergy Hives Verified 02/22/18 16:03 All Systems PM: A 10-system review of systems was performed and is negative for pertinent findings except as documented above in the HPI. - Constitutional Vitals: Temp Pulse Resp BP Pulse Ox 99.5 F 103 16 144/63 90 05/12/18 19:22 05/12/18 19:22 05/12/18 19:22 05/12/18 19:22 05/12/18 19:22 Exam: General: Alert and oriented. Skin:Pale, no rash, no lesions. HEENT:Pupils equal, round and reactive. Cardiovascular:Normal S1 & S2, no rubs, murmurs or gallops. No JVD. Pulse regular. Lungs:Breath sounds decreased, no wheezes or crackles. Respirations slightly labored. No accessory muscle use. Abdomen:Soft, non-tender, no rigidity. Extremities:No deformity, no edema or tenderness, no joint swelling or clubbing. Left leg amputation noted. Neurological:Normal cognition and motor skills. Pulses:Carotid and radial pulses normal +2. Rest of the physical exam is non contributory Internal Med - H&P Results - Labs CBC & Chem 7: 05/12/18 13:50 05/12/18 13:50 - Assessment and plan (1) Dyspnea Current Visit: Yes Status: Acute Assessment and plan: Start BIPAP. Wean to 02 by nasal canula. Plan for dialysis tomorrow. Qualifiers: Dyspnea type: unspecified Qualified Code(s): R06.00 - Dyspnea, unspecified (2) Pulmonary edema Current Visit: Yes Status: Acute Assessment and plan: Fluid restriction, strict I/O. Daily weights. Dialysis planned for tomorrow. Qualifiers: Chronicity: acute Qualified Code(s): J81.0 - Acute pulmonary edema (3) End stage renal disease Current Visit: Yes Status: Chronic Assessment and plan: Nephrology consulted by ER. To receive dialysis tomorrow. Renal diet ordered. (4) UTI (urinary tract infection) Current Visit: Yes Status: Suspected Assessment and plan: ER UA likely contaminated. Repeat UA ordered. Qualifiers: Urinary tract infection type: site unspecified Hematuria presence: without hematuria Qualified Code(s): N39.0 - Urinary tract infection, site not specified - Time Spent With Patient Total time spent is greater than 50% in coordination of care (as documented) at patient's floor/unit and/or counseling patient:
[2018-05-12] MEDS: cloNIDine HCl 0.1 MG TABLET PO SCH (21:45)
[2018-05-12] MEDS: amLODIPine 5 MG TABLET PO SCH (21:45)
[2018-05-13 04:35] LABS: Basophils % 0.4 %; Eosinophils # 0.1 K/mcL (0.0-0.6); Eosinophils % 0.9 %; Hematocrit 28.6 % (35.3-44.9); Immature Granulocytes % 0.6 % (0-4); Lymphocytes # 0.6 K/mcL (0.6-4.6); Lymphocytes % 7.8 %; Mean Corpuscular HGB Conc 33.9 g/dL (31.6-35.5); Mean Corpuscular Hemoglobin 34.3 pg (28.0-33.3); Mean Corpuscular Volume 101.1 fL (83.0-100.0); Mean Platelet Volume 9.9 fL (9.4-12.4); Monocytes # 0.7 K/mcL (0.0-1.3); Neutrophils # 6.8 K/mcL (1.6-8.9); Platelet Count 192 K/mcL (140-400); Red Blood Count 2.83 M/mcL (3.82-4.97); Red Cell Distribution Width 14.1 % (11.5-14.5); Segmented Neutrophils % 82.3 %
[2018-05-13 04:36] LABS: Hemoglobin 9.7 g/dL (11.5-15.4)
[2018-05-13 04:51] LABS: Albumin 3.3 g/dL (3.5-5.7); Albumin/Globulin Ratio 1.1 (1.1-2.2); Bilirubin,Total 0.4 mg/dL (0.3-1.0); Calcium 8.8 mg/dL (8.6-10.3); Globulin 2.9 g/dL (2.4-3.5); Potassium 5.7 mEq/L (3.5-5.1); Total Protein 6.2 g/dL (6.4-8.9)
[2018-05-13] MEDS ORDERED: *HR* Heparin 5,000 UNIT/ML VIAL SQ SCH (06:00)
[2018-05-13] MEDS ORDERED: 0.9 % Sodium Chloride 250 ML IVC PRN (06:49)
[2018-05-13] MEDS ORDERED: 0.9 % Sodium Chloride 1,000 ML PRIME SCH (07:00)
--- NOTE | 2018-05-13 09:59 | Nephrology Consult Note ---
<Judith Carranzaekfrida Meneses - Last Filed: 05/13/18 09:52> Date of Encounter: 05/13/18 Time of Encounter: 09:52 Assessment and Plan (1) ESRD (end stage renal disease) on dialysis Status: Acute Current regimen is TTS at [facility]. Last tx was 2 hours on Sunday. HD in progress for today. Avoid nephrotoxins and renal dose all medications. Renal diet, if able to eat. (3) Dyspnea Status: Acute Appears resolving, is on O2 at 3 liters per n/c. Qualifiers: Dyspnea type: unspecified Qualified Code(s): R06.00 - Dyspnea, unspecified (4) Pulmonary edema Status: Acute Strict I/O Fluid restriction. Qualifiers: Chronicity: acute Qualified Code(s): J81.0 - Acute pulmonary edema History of Present Illness - Reason for Consult Consult date: 05/13/18 end stage renal disease - Chief Complaint dyspnea - History of Present Illness Ms. Eng is a 72 year old female with ESRD. Current regimen is TTS at [facility]. Last treatment was Sunday but it was only 2 hours, because the patient was not feeling well, patient is a poor historian. PMH: Coronary artery disease, diabetes, dialysis, hyperlipidemia, hypertension. Pt presented to ED on Sunday with dyspnea and overall "just not feeling well". She admits to feeling weak and did have episodes of sweating and chills at home. Her checked her pulse ox at home and it was 80% on room air, she does not wear home oxygen and does not have COPD or emphysema. Her Spo2 improved to the 90's quickly on 4 Liters O2 per n/c. She is currently on 3 Liters N/C in HD. She denies ETOH, tobacco use, or illicit drug use. HD in progress for today, tolerating well. Denies CP, admits to SOB. Denies fever, chills, nausea/vomiting at this time. Did have fever of 100.0 per EMR. Past Med Surg Social Fam HX - Past Medical History Medical history: coronary artery disease, diabetes, dialysis, hyperlipidemia, hypertension, renal disease, other Additional medical history: hemodialysis Psychiatric history: anxiety, depression - Past Surgical History Surgical History: carotid endarterectomy, hysterectomy, orthopedic, other, thyroidectomy, other Additional surgical history: LBKA, right digits removed - Social History Smoking Status: Never smoker Smokeless Tobacco Status: No Alcohol use: none Drug use: none - Family History Mother Adopted: No Family Member Ethnicity: Non- Living Status: Hx Family Cardiac Disorders: No Hx Family Respiratory Disorders: Yes Hx Family Cancer: Yes Hx Family GI Disorders: No Hx Family Endocrine Disorder: No Hx Family Neuromuscular Disorders: No Hx Family Neurologic Disorders: No Hx Family HEENT Disorders: No Hx Family Autoimmune Disorders: No Father Adopted: No Family Member Ethnicity: Non- Living Status: Hx Family Cardiac Disorders: Yes Hx Family Respiratory Disorders: Yes Hx Family Cancer: No Hx Family GI Disorders: No Hx Family Endocrine Disorder: Yes Hx Family Neuromuscular Disorders: No Hx Family Neurologic Disorders: Yes Hx Family HEENT Disorders: No Hx Family Autoimmune Disorders: No Medications and Allergies Lidocaine/Prilocaine [Emla] 1 appl TP ONCE PRN 10/09/16 [History] Clopidogrel [Plavix] 75 mg PO DAILY tablet 10/16/16 [Rx] Citalopram [CeleXA] 20 mg PO DAILY 03/30/17 [History] Multivitamin [Multivitamins] 1 cap PO DAILY 09/03/17 [History] Acetaminophen [Tylenol] 650 mg PO Q6HR PRN #30 tablet 09/10/17 [Rx] Aspirin Enteric Coated [Aspirin EC] 81 mg PO DAILY #30 tablet. 01/22/18 [Rx] Metoprolol Tartrate [Lopressor] 50 mg PO BID 02/22/18 [History] SUMAtriptan succinate [Imitrex] 25 mg PO Q2H PRN #30 tablet 04/10/18 [Rx] amLODIPine [Norvasc] 5 mg PO BID #0 04/10/18 [Rx] cloNIDine HCl [CloNIDine HCl] 0.1 mg PO BID #60 tablet 04/10/18 [Rx] Atorvastatin [Lipitor] 20 mg PO HS #30 tablet 05/16/18 [Rx] Isosorbide MONOnitrate (24 HR) [Imdur] 30 mg PO DAILY #30 tab.er.24h 05/16/18 [ Rx] 3 Allergy/AdvReac Type Severity Reaction Status Date / Time Penicillins Allergy Hives Verified 02/22/18 16:03 Review of Systems ROS unobtainable: other (as per HPI) Exam - Vital Signs Vital signs: Initial Vital Signs Temp Pulse Resp BP Pulse Ox 98.3 F 103 18 164/68 92 05/12/18 13:05 05/12/18 13:05 05/12/18 13:05 05/12/18 13:05 05/12/18 13:05 Vital Signs - Last 8 Hours Temp Pulse Resp BP Pulse Ox 05/13/18 07:58 98.4 F 76 16 151/70 96 05/13/18 04:50 98.8 F 74 16 122/65 100 Intake and Output 05/12/18 05/13/18 05/13/18 23:59 07:59 15:59 Intake Total 120 / 120 Balance 120 / 120 Intake: Oral 120 / 120 Other: Meal Breakfast Percent of Meal Consumed 30% Weight 72.4 kg - General Appearance General appearance: well-developed, well-nourished EENT: ATNC, hearing intact, vision intact Neck: supple Respiratory: clear Cardiology: no edema, normal S1, normal S2 - Dialysis Access Dialysis Vascular Access: Arteriovenous Fistula thrill: Yes bruit: Yes Gastrointestinal: normoactive bowel sounds, no tenderness, no guarding Integumentary: no rash, warm and dry Neurologic: alert and oriented x3 Psychiatric: mood/affect appropriate, cooperative Results - Lab Results 05/13/18 04:08 05/13/18 04:08 Most recent lab results Calcium 8.8 mg/dL (8.6-10.3) 05/13/18 04:08 Phosphorus 6.1 mg/dL (2.7-4.5) H 05/12/18 13:50 Magnesium 2.1 mg/dL (1.6-2.6) 05/12/18 13:50 Consult Discharge Plan - Plan Referrals: Rudi Avila MD [Primary Care Provider] - 05/23/18 1:15 pm (Please follow up as schedule...) Prescriptions: Atorvastatin [Lipitor] 20 mg PO HS #30 tablet Isosorbide MONOnitrate (24 HR) [Imdur] 30 mg PO DAILY #30 tab.er.24h <Kala [place]de - Last Filed: 05/20/18 02:19> Date of Encounter: 05/13/18 Assessment and Plan (1) Dyspnea Status: Resolved Qualifiers: Dyspnea type: unspecified Qualified Code(s): R06.00 - Dyspnea, unspecified (2) Pulmonary edema Status: Acute Qualifiers: Chronicity: acute Qualified Code(s): J81.0 - Acute pulmonary edema (3) ESRD (end stage renal disease) on dialysis Status: Acute (4) NSTEMI (non-ST elevated myocardial infarction) Status: Acute (5) Physical deconditioning Status: Acute Exam - Vital Signs Vital signs: Initial Vital Signs Temp Pulse Resp BP Pulse Ox 98.3 F 103 18 164/68 92 05/12/18 13:05 05/12/18 13:05 05/12/18 13:05 05/12/18 13:05 05/12/18 13:05 Results - Lab Results 05/17/18 04:25 05/17/18 04:25 Most recent lab results Calcium 9.7 mg/dL (8.6-10.3) 05/17/18 04:25 Phosphorus 6.1 mg/dL (2.7-4.5) H 05/12/18 13:50 Magnesium 2.1 mg/dL (1.6-2.6) 05/12/18 13:50 - Attending Attestation I examined this patient and my medical decision-making was reviewed with the Resident Physician/DOCK BUILDER. I agree with the documented findings, disposition and treatment plan as described except to the extent set forth below. In brief, 72y o female with PMH of ESRd on HD TTS with last treatment abbreviated to tyson 2 hours now presenting for decreasing oxygen sat and SOB. Renal consulted for management. Pt seen and examined on HD ordered for additional clearance and UF today. Labs noted. On exam chronically ill appearing and lethargic. No significant LE edema noted. Continue HD with UF as tolerated. Will plan to dialyze again. a short treatment tomorrow to return to her routine HD schedule.
--- NOTE | 2018-05-13 10:59 | Cardiology Consult Note ---
Date of Encounter: 05/13/18 Time of Encounter: 11:00 Assessment and Plan (1) ESRD (end stage renal disease) on dialysis Current Visit: Yes Status: Acute Per Cardiology: End-stage renal disease on dialysis. (2) NSTEMI (non-ST elevated myocardial infarction) Current Visit: Yes Status: Acute Per Cardiology: History of past troponin elevations. Current troponin elevated at 2.18. Last echo 01/2018 showed EF preserved 60%. Last heart catheterization July 2016 showed: Impressions: Severe 70%-80% distal LAD stenosis (too small and too distal for intervention) 50% ostial circumflex artery stenosis. Lesion Findings/Interventions * Left Main Coronary Artery The LMCA is angiographically free of disease. * Left Anterior Descending The Distal LAD is small in size.. There is a 30% stenosis in the Mid LAD. There is a 70%-80% stenosis in the Distal LAD. There is a 40% stenosis in the 1st Diagonal. * Circumflex There is a 50% stenosis in the Proximal Circumflex. There is a 40% stenosis in the Mid Circumflex. * Ramus There is a 30% stenosis in the Ramus. * Right Coronary Artery There is a 30% stenosis in the Mid RCA. On aspirin, Plavix, beta yossi. Discussed and reviewed with Dr. Clarke, will check echocardiogram. Discussion w patient/family: The assessment and plan as outlined above was discussed with the patient who expressed understanding and agreement. All questions were answered. Thank you for involving us in the care of your patient. Please call with any questions. History of Present Illness Consult date: 05/13/18 Requesting physician: Brina Hurst Consult reason: Troponins History of present illness: Ms. Eng is a 72 year old female Past Med Surg Social Fam HX - Past Medical History Attestation: Yes The following information was validated with the patient. Source: patient, old records reviewed Medical history: coronary artery disease, diabetes, dialysis, hyperlipidemia, hypertension, renal disease, other Additional medical history: hemodialysis Psychiatric history: anxiety, depression - Past Surgical History Surgical History: carotid endarterectomy, hysterectomy, orthopedic, other, thyroidectomy, other Additional surgical history: LBKA, right digits removed - Social History Smoking Status: Never smoker Smokeless Tobacco Status: No Alcohol use: none Drug use: none - Family History Mother Adopted: No Family Member Ethnicity: Non- Living Status: Hx Family Cardiac Disorders: No Hx Family Respiratory Disorders: Yes Hx Family Cancer: Yes Hx Family GI Disorders: No Hx Family Endocrine Disorder: No Hx Family Neuromuscular Disorders: No Hx Family Neurologic Disorders: No Hx Family HEENT Disorders: No Hx Family Autoimmune Disorders: No Father Adopted: No Family Member Ethnicity: Non- Living Status: Hx Family Cardiac Disorders: Yes Hx Family Respiratory Disorders: Yes Hx Family Cancer: No Hx Family GI Disorders: No Hx Family Endocrine Disorder: Yes Hx Family Neuromuscular Disorders: No Hx Family Neurologic Disorders: Yes Hx Family HEENT Disorders: No Hx Family Autoimmune Disorders: No Medications and Allergies Lidocaine/Prilocaine [Emla] 1 appl TP ONCE PRN 10/09/16 [History] Clopidogrel [Plavix] 75 mg PO DAILY tablet 10/16/16 [Rx] Citalopram [CeleXA] 20 mg PO DAILY 03/30/17 [History] Multivitamin [Multivitamins] 1 cap PO DAILY 09/03/17 [History] Acetaminophen [Tylenol] 650 mg PO Q6HR PRN #30 tablet 09/10/17 [Rx] Aspirin Enteric Coated [Aspirin EC] 81 mg PO DAILY #30 tablet. 01/22/18 [Rx] Metoprolol Tartrate [Lopressor] 50 mg PO BID 02/22/18 [History] SUMAtriptan succinate [Imitrex] 25 mg PO Q2H PRN #30 tablet 04/10/18 [Rx] amLODIPine [Norvasc] 5 mg PO BID #0 04/10/18 [Rx] cloNIDine HCl [CloNIDine HCl] 0.1 mg PO BID #60 tablet 04/10/18 [Rx] 3 Allergy/AdvReac Type Severity Reaction Status Date / Time Penicillins Allergy Hives Verified 02/22/18 16:03 All Systems Review: The remainder of the systems were reviewed and are negative - Cardiovascular Cardiovascular: as per HPI Physical Examination Vital Signs, Last 4 Hours Temp Pulse Resp BP Pulse Ox 05/13/18 10:45 153/65 05/13/18 10:30 141/55 05/13/18 10:15 142/66 05/13/18 10:00 131/73 05/13/18 09:45 149/65 05/13/18 09:30 166/66 05/13/18 09:15 166/73 09/24/18 09:00 171/69 05/13/18 08:45 98.3 F 18 166/70 05/13/18 07:58 98.4 F 76 16 151/70 96 Results 05/13/18 04:08 05/13/18 04:08 Lab Results Laboratory Tests 07/30/16 09/04/17 12/03/17 10:15 13:10 Unknown Hgb 9.7 L Hct 30.4 L INR Creatinine Est GFR (Non-Af Amer) Troponin I 2.53 H* 0.45 H* B-Natriuretic Peptide 01/15/18 04/10/18 05/12/18 04:43 05:16 13:50 Hgb 12.6 11.3 L Hct 36.0 32.6 L INR Creatinine Est GFR (Non-Af Amer) Troponin I 0.05 H* B-Natriuretic Peptide 05/12/18 05/12/18 05/12/18 13:50 13:50 15:42 Hgb Hct INR 1.1 Creatinine Est GFR (Non-Af Amer) Troponin I 0.25 H* B-Natriuretic Peptide 2795 H 05/13/18 05/13/18 05/13/18 04:08 04:08 09:30 Hgb 9.7 L D Hct 28.6 L INR Creatinine 6.17 H Est GFR (Non-Af Amer) 7 L Troponin I 2.18 H* B-Natriuretic Peptide ITS Impressions Chest X-Ray 05/12/18 13:15 IMPRESSION: Overall pattern suggests CHF and mild pulmonary edema. D/ / Feliz Chavez MD / Feliz Chavez MD Interpreting Provider: Feliz Chavez MD Chest CTA 05/12/18 15:42 IMPRESSION: 1. No evidence of pulmonary embolic disease. 2. Patchy ground-glass opacification in the perihilar regions with interlobular septal thickening most consistent with interstitial edema and CHF. Bilateral pleural effusions and gravity dependent lower lobe atelectasis, right greater than left. D/ / 05/12/2018 17:39:12 Osman Padilla MD / [facility] Interpreting Provider: Osman Padilla MD Intake & Output 05/10/18 05/11/18 05/12/18 05/13/18 23:59 23:59 23:59 23:59 Intake Total 720 / 720 Balance 720 / 720 Weight 72.4 kg Active Medications Acetaminophen (Tylenol) 650 mg PO Q6HR PRN PRN Reason: Mild to moderate pain Stop: 11/11/18 21:28 Amlodipine Besylate (Norvasc) 5 mg PO BID [facility] PRN Reason: Protocol Stop: 11/11/18 21:31 Last Admin: 05/12/18 21:45 Dose: 5 mg Aspirin (Aspirin Ec) 81 mg PO DAILY [facility] Stop: 11/12/18 09:01 Clonidine HCl (Clonidine Hcl) 0.1 mg PO BID [facility] Stop: 11/11/18 21:31 Last Admin: 05/12/18 21:45 Dose: 0.1 mg Clopidogrel Bisulfate (Plavix) 75 mg PO DAILY [facility] Stop: 11/12/18 09:01 Heparin Sodium (Porcine) (Heparin) 5,000 unit SQ Q12HCO [facility] Stop: 11/12/18 06:01 Last Admin: 05/13/18 05:10 Dose: 5,000 unit Sodium Chloride (0.9 % Sodium Chloride) 250 mls @ 937.5 mls/hr IVC .Q16M PRN PRN Reason: Hypotension Stop: 11/12/18 06:50 Sodium Chloride (0.9 % Sodium Chloride) 1,000 mls @ 0 mls/hr PRIME .Q0M [facility] PRN Reason: As Directed Stop: 11/12/18 07:01 Lidocaine/Prilocaine (Emla) 0 gm TP ONCE PRN PRN Reason: Prior To Dialysis Stop: 11/11/18 21:28 Metoprolol Tartrate (Lopressor) 50 mg PO BID [facility] Stop: 11/11/18 21:31 Last Admin: 05/12/18 21:45 Dose: 50 mg Multivitamins/Calcium (Thera M Plus) 1 tab PO DAILY [facility] Stop: 11/12/18 09:01 Naloxone HCl (Narcan) 0.4 mg IVP Q2MIN PRN PRN Reason: SEE COMMENTS Stop: 11/11/18 19:20 Ondansetron HCl (Zofran) 4 mg IVP Q6HR PRN; Protocol PRN Reason: Nausea And Vomiting Stop: 11/11/18 19:25 Last Admin: 05/13/18 00:16 Dose: 4 mg Sumatriptan Succinate (Imitrex) 25 mg PO Q2H PRN PRN Reason: Migraine Headache Stop: 11/11/18 21:28 - Imaging and Cardiology Echo: report reviewed (01/2018: Impressions: LVEF 60%. Moderate left ventricular diastolic dysfunction. Mildly dilated RV with normal function. Mild mitral regurgitation. Mild aortic stenosis. Mild pulmonary hypertension. Left Ventricular Wall Motion: Rest Echo Findings All wall segments showed normal motion.) Cardiac cath: report reviewed Consult Discharge Plan - Plan Referrals: Rudi Avila MD [Primary Care Provider] -
[2018-05-13 11:17] LABS: Hematocrit 32.5 % (35.3-44.9); Mean Corpuscular HGB Conc 35.1 g/dL (31.6-35.5); Mean Corpuscular Hemoglobin 34.9 pg (28.0-33.3); Mean Corpuscular Volume 99.4 fL (83.0-100.0); Mean Platelet Volume 9.8 fL (9.4-12.4); Platelet Count 201 K/mcL (140-400); Red Blood Count 3.27 M/mcL (3.82-4.97); Red Cell Distribution Width 14.4 % (11.5-14.5)
[2018-05-13 11:30] LABS: Hemoglobin 11.4 g/dL (11.5-15.4)
[2018-05-13] MEDS: Acetaminophen 325 MG TABLET PO PRN (11:33)
[2018-05-13] MEDS ORDERED: *HR* Heparin 5,000 UNIT/ML VIAL IVP ONE (12:12)
[2018-05-13] MEDS ORDERED: *HR* Heparin 5,000 UNIT/ML VIAL IVP PRN ×2 (12:12)
--- NOTE | 2018-05-13 12:14 | Event Note ---
Date of Encounter: 05/13/18 Time of Encounter: 12:15 - Cardiology Event Note Per discussion with Dr. Clarke, repeat hemoglobin stable, will initiate IV heparin drip for non-STEMI. Additionally, addendum to previous note-- see ROS and Physical Exam findings documented per Dr. Clarke (patient seen and evaluated by Dr. Clarke).
[2018-05-13] MEDS: amLODIPine 5 MG TABLET PO SCH ×2 (13:05→21:36)
[2018-05-13] MEDS: cloNIDine HCl 0.1 MG TABLET PO SCH ×2 (13:06→21:36)
[2018-05-13] MEDS: Multivit/Ca/Min/Fe/FA 1 TAB TABLET PO SCH (13:06)
[2018-05-13] MEDS: Aspirin Enteric Coated 81 MG Tablet PO SCH (13:06)
[2018-05-13] MEDS: Heparin 25,000 UNIT/500 ML D5W 25,000 UNIT/500 ML BAG IVC SCH (13:24)
[2018-05-13 14:00] LABS: INR 1.1; Prothrombin Time 12.9 Seconds (9.4-12.1)
[2018-05-13 14:02] LABS: Hematocrit 30.1 % (35.3-44.9); Hemoglobin 10.3 g/dL (11.5-15.4); Mean Corpuscular HGB Conc 34.2 g/dL (31.6-35.5); Mean Corpuscular Hemoglobin 34.6 pg (28.0-33.3); Mean Platelet Volume 9.7 fL (9.4-12.4); Platelet Count 190 K/mcL (140-400); Red Blood Count 2.98 M/mcL (3.82-4.97); Red Cell Distribution Width 14.1 % (11.5-14.5)
--- NOTE | 2018-05-13 14:46 | Internal Med Progress Note ---
Hospitalist Progress Note - Encounter Date of Encounter: 05/13/18 Time of Encounter: 11:20 - Subjective Interval History: Patient seen during hemodialysis. Denied any chest pain at this time. No shortness of breath. She feels much better overall. No fever or chills reported overnight. Denies any nausea at this time. - Exam Vitals: Temp Pulse Resp BP Pulse Ox 98.3 F 78 18 148/77 100 05/13/18 13:05 05/13/18 13:05 05/13/18 13:05 05/13/18 13:05 05/13/18 13:05 Exam: General: Patient is alert, no acute distress, oriented x 3 Respiratory: Decreased breath sounds at both bases. No wheezing or crackles. Cardiovascular: Regular rate and rhythm. s1 and s2 normal Abdomen: Abdomen is soft, nontender. Bowel sounds are present Musculoskeletal: Spontaneously moving all extremities. Bilateral pedal edema Skin: warm, dry, intact. Neuro: Alert oriented x 3 normal cranial nerves, no focal deficits - Assessment and Plan (1) NSTEMI (non-ST elevated myocardial infarction) Current Visit: Yes Status: Acute Assessment and Plan: Troponins elevated to 2.1 today. Started on IV heparin drip per cardiology recommendations. Hemoglobin levels were initially reported as being l 9.7. Repeat check shows stable hemoglobin levels. We will get 2-D echocardiogram. Continue monitoring with telemetry. Cardiology consult appreciated. (2) Pulmonary edema Current Visit: Yes Status: Acute Assessment and Plan: Fluid management with dialysis. Patient being dialyzed today. Continue O2 supplementation as needed. (3) Dyspnea Current Visit: Yes Status: Acute Assessment and Plan: Due to pulmonary edema. Improving (4) End stage renal disease Current Visit: Yes Status: Chronic Assessment and Plan: Consulted nephrology. On dialysis (5) UTI (urinary tract infection) Current Visit: Yes Status: Ruled-out Assessment and Plan: Initially suspected of having UTI. Patient not having any leukocytosis or any fever suggestive of UTI. No indication for antibiotics at this time. DVT Prophylaxis: On IV heparin - Time Spent with Patient Total time spent is greater than 50% in coordination of care (as documented) at patient's floor/unit and/or counseling patient: Internal Medicine: Result - Labs CBC & Chem 7: 05/13/18 13:15 05/13/18 11:10 Labs: Short CBC 05/13/18 05/13/18 05/13/18 Range/Units 04:08 10:51 13:15 WBC 8.2 7.7 6.5 (4.3-11.1) K/mcL Hgb 9.7 L D 11.4 L D 10.3 L (11.5-15.4) g/dL Hct 28.6 L 32.5 L 30.1 L (35.3-44.9) % Plt Count 192 201 190 (140-400) K/mcL Neutrophils # 6.8 (1.6-8.9) K/mcL BMP 05/13/18 05/13/18 04:08 11:10 Sodium 134 L Potassium 5.7 H 3.0 L D Chloride 98 Carbon Dioxide 23 BUN 47 H Creatinine 6.17 H Glucose 110 H Calcium 8.8 Cardiac Enzymes 05/13/18 05/13/18 Range/Units 09:30 13:15 Troponin I 2.18 H* 2.12 H* (< 0.04) ng/mL Liver Function 05/13/18 Range/Units 04:08 Total Bilirubin 0.4 (0.3-1.0) mg/dL AST 17 (13-39) Units/L ALT 8 (7-52) Units/L Alkaline Phosphatase 80 (34-104) Units/L Albumin 3.3 L (3.5-5.7) g/dL - ABG Interpretation ABG results: PT/INR, D-dimer PT 12.9 Seconds (9.4-12.1) H 05/13/18 13:15 Consult Discharge Plan - Plan Referrals: Rudi Avila MD [Primary Care Provider] - (2) Pulmonary edema Qualifiers: Chronicity: acute Qualified Code(s): J81.0 - Acute pulmonary edema (3) Dyspnea Qualifiers: Dyspnea type: unspecified Qualified Code(s): R06.00 - Dyspnea, unspecified (5) UTI (urinary tract infection) Qualifiers: Urinary tract infection type: site unspecified Hematuria presence: without hematuria Qualified Code(s): N39.0 - Urinary tract infection, site not specified
--- NOTE | 2018-05-13 17:23 | Electrocardiograph Report ---
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
[2018-05-13] MEDS ORDERED: Perflutren Lipid Microsphere 1.3 ML in 0.9 % Sodium Chloride 8.7 ML IVP ONE (20:14)
[2018-05-13] MEDS: SUMAtriptan succinate 25 MG TABLET PO PRN (21:38)
[2018-05-14 02:05] LABS: Basophils % 0.6 %; Eosinophils # 0.2 K/mcL (0.0-0.6); Eosinophils % 4.6 %; Hematocrit 27.3 % (35.3-44.9); Hemoglobin 9.1 g/dL (11.5-15.4); Immature Granulocytes % 0.2 % (0-4); Lymphocytes # 0.9 K/mcL (0.6-4.6); Lymphocytes % 17.9 %; Mean Corpuscular HGB Conc 33.3 g/dL (31.6-35.5); Mean Corpuscular Hemoglobin 33.7 pg (28.0-33.3); Mean Corpuscular Volume 101.1 fL (83.0-100.0); Mean Platelet Volume 10.2 fL (9.4-12.4); Monocytes # 0.6 K/mcL (0.0-1.3); Monocytes % 12.3 %; Neutrophils # 3.3 K/mcL (1.6-8.9); Platelet Count 182 K/mcL (140-400); Red Cell Distribution Width 14.5 % (11.5-14.5); Segmented Neutrophils % 64.4 %
[2018-05-14 02:22] LABS: Calcium 8.8 mg/dL (8.6-10.3); Potassium 4.1 mEq/L (3.5-5.1); Troponin I 1.87 ng/mL (< 0.04)
[2018-05-14] MEDS ORDERED: 0.9 % Sodium Chloride 2,000 ML ONE (07:08)
[2018-05-14] MEDS ORDERED: 0.9 % Sodium Chloride 250 ML IVC PRN (07:32)
[2018-05-14] MEDS ORDERED: 0.9 % Sodium Chloride 1,000 ML PRIME SCH (07:45)
--- NOTE | 2018-05-14 09:07 | Internal Med Progress Note ---
<Heather Packer - Last Filed: 05/14/18 16:35> Hospitalist Progress Note - Encounter Date of Encounter: 05/14/18 Time of Encounter: 09:00 - Subjective Interval History: Patient seen and examined. No acute events overnight. Patient is resting comfortably in bed. Patient states she feels so-so. States there has been no improvement in weakness. Reports shortness of breath sometimes. States she feels hot and cold sometimes. Admits sweating. Denies chest pain, swelling. Denies abdominal pain, nausea/vomiting, diarrhea/constipation. Denies urinary symptoms. - Exam Vitals: Temp Pulse Resp BP Pulse Ox 97.4 F L 68 16 151/70 99 05/14/18 06:44 05/14/18 06:44 05/14/18 06:44 05/14/18 06:44 05/14/18 06:44 Exam: General: Alert and oriented. No acute distress. Well-developed. Head: atraumatic, normocephalic. Eye: pupils equal, round, and reactive. Sclera anicteric. EOMI. ENT: Moist mucus membrane. Normal oropharynx. Neck: supple, trachea midline. Lungs: Mild diffuse crackles bilaterally. Mild diffuse end-expiratory wheezing in left lung. No respiratory distress. No accessory muscle use. Cardiovascular: Normal S1 & S2. Systolic murmur grade 2. No rubs or gallops. No JVD. Pulse regular. Abdomen: Soft. Normal bowel sounds. Nondistended, no rigidity. Nontender. Extremities: No deformity, no edema or tenderness, no joint swelling or clubbing. Left leg below knee amputation noted. Skin: warm, dry, and intact. No rash or lesions. Neurological: Normal cognition and motor skills. - Assessment and Plan (1) Pulmonary edema Current Visit: Yes Status: Acute Assessment and Plan: History of CHF with LVEF 60% on TTE 01/2018. History of ESRD on HD Sun/Sun/Sun. Last dialysis on Sat 05/11 only 2 hours due to not feeling well. Dialysis yesterday and today. Fluid restriction, strict I/O. Daily weights. (2) Dyspnea Current Visit: Yes Status: Acute Assessment and Plan: Likely secondary to pulmonary edema. Dialysis yesterday and today. Weaned to 2L nasal cannula. Dyspnea improved. (3) End stage renal disease Current Visit: Yes Status: Chronic Assessment and Plan: History of ESRD on HD Tue/Marleni/Sat at [facility]. Last dialysis on Sat 05/11 only 2 hours due to not feeling well. Dialysis yesterday and today. Nephrology consulted and following. (4) NSTEMI (non-ST elevated myocardial infarction) Current Visit: Yes Status: Acute Assessment and Plan: History of CAD involving distal LAD. History of ESRD on HD. At admission, troponin elevated to 0.25. Yesterday, troponin 2.12. Today, 1.87. Continue ASA, Plavix, statin, BB as tolerated, per Cardiology. Discontinue heparin drip due to Hb and troponin downtrending. Will start Imdur as recommended by Cardiology. DVT Prophylaxis: SQ heparin. - Time Spent with Patient Total time spent is greater than 50% in coordination of care (as documented) at patient's floor/unit and/or counseling patient: Internal Medicine: Result - Labs CBC & Chem 7: 05/14/18 01:35 05/14/18 01:35 Labs: Short CBC 05/13/18 05/13/18 05/14/18 Range/Units 10:51 13:15 01:35 WBC 7.7 6.5 5.0 (4.3-11.1) K/mcL Hgb 11.4 L D 10.3 L 9.1 L (11.5-15.4) g/dL Hct 32.5 L 30.1 L 27.3 L (35.3-44.9) % Plt Count 201 190 182 (140-400) K/mcL Neutrophils # 3.3 (1.6-8.9) K/mcL BMP 05/13/18 05/14/18 11:10 01:35 Sodium 138 Potassium 3.0 L D 4.1 D Chloride 99 Carbon Dioxide 28 BUN 25 H Creatinine 3.75 H Glucose 111 H Calcium 8.8 Cardiac Enzymes 05/13/18 05/13/18 05/14/18 Range/Units 09:30 13:15 01:35 Troponin I 2.18 H* 2.12 H* 1.87 H* (< 0.04) ng/mL - ABG Interpretation ABG results: PT/INR, D-dimer PT 12.9 Seconds (9.4-12.1) H 05/13/18 13:15 Consult Discharge Plan - Plan Referrals: Rudi Avila MD [Primary Care Provider] - <Valerio Reyes Lionel - Last Filed: 05/14/18 17:58> Hospitalist Progress Note - Encounter Date of Encounter: 05/14/18 - Exam Vitals: Temp Pulse Resp BP Pulse Ox 98.6 F 71 16 135/60 98 05/14/18 15:47 05/14/18 15:47 05/14/18 15:47 05/14/18 15:47 05/14/18 15:47 - Assessment and Plan (1) Dyspnea Current Visit: Yes Status: Acute (2) Pulmonary edema Current Visit: Yes Status: Acute (3) End stage renal disease Current Visit: Yes Status: Chronic (4) NSTEMI (non-ST elevated myocardial infarction) Current Visit: Yes Status: Acute - Time Spent with Patient Total time spent is greater than 50% in coordination of care (as documented) at patient's floor/unit and/or counseling patient: Internal Medicine: Result - Labs CBC & Chem 7: 05/14/18 01:35 05/14/18 01:35 - ABG Interpretation ABG results: PT/INR, D-dimer PT 12.9 Seconds (9.4-12.1) H 05/13/18 13:15 - Attending Attestation I performed an independent interview and examin of this patient. I agree with the findings, assessment, and plan of Dr. Packer, internal medicine internet sourcer. Patient was seen by cardiology. She is currently being managed medically for elevated troponin. This may be demand ischemia, further worsened by delayed renal clearance due to her end-stage renal disease. Patient is currently comfortable. She presented in a state of volume overload and is just returned from hemodialysis. She is having difficulty with her fistula which my understanding is to be repaired fairly soon. General: No acute distress, awake alert and oriented 3 Skin warm and dry Neck supple Lungs clear Heart regular rate and rhythm Abdomen nontender Extremities trace edema. <OchoaHeather - Last Filed: 05/14/18 16:35> (1) Pulmonary edema Qualifiers: Chronicity: acute Qualified Code(s): J81.0 - Acute pulmonary edema (2) Dyspnea Qualifiers: Dyspnea type: unspecified Qualified Code(s): R06.00 - Dyspnea, unspecified <Valerio Reyes - Last Filed: 05/14/18 17:58> (1) Dyspnea Qualifiers: Dyspnea type: unspecified Qualified Code(s): R06.00 - Dyspnea, unspecified (2) Pulmonary edema Qualifiers: Chronicity: acute Qualified Code(s): J81.0 - Acute pulmonary edema
[2018-05-14] MEDS: Aspirin Enteric Coated 81 MG Tablet PO SCH (10:24)
[2018-05-14] MEDS: cloNIDine HCl 0.1 MG TABLET PO SCH ×2 (10:24→21:42)
[2018-05-14] MEDS: amLODIPine 5 MG TABLET PO SCH ×2 (10:24→21:42)
[2018-05-14] MEDS: Acetaminophen 325 MG TABLET PO PRN ×2 (10:24→18:33)
[2018-05-14] MEDS: Multivit/Ca/Min/Fe/FA 1 TAB TABLET PO SCH ×2 (10:24→10:27)
--- NOTE | 2018-05-14 12:27 | Nephrology Progress Note ---
Date of Encounter: 05/14/18 Time of Encounter: 12:26 - Assessment and Plan (1) ESRD (end stage renal disease) on dialysis Current Visit: Yes Status: Acute Current regimen is TTS at [facility]. HD in progress for today. Avoid nephrotoxins and renal dose all medications. Renal diet, if able to eat. (2) Dyspnea Current Visit: Yes Status: Acute Appears resolving, is on O2 at 3 liters per n/c. Qualifiers: Dyspnea type: unspecified Qualified Code(s): R06.00 - Dyspnea, unspecified (3) Pulmonary edema Current Visit: Yes Status: Acute Strict I/O Fluid restriction. Qualifiers: Chronicity: acute Qualified Code(s): J81.0 - Acute pulmonary edema Subjective Principal diagnosis: difficulty in breathing Interval history: Pt seen and examined in HD, tolerating well. Objective - Vital Signs Vital signs: Vital Signs Temp Pulse Resp BP Pulse Ox 05/14/18 11:30 97 05/14/18 11:21 98.0 F 79 17 158/71 97 Intake and Output 05/13/18 05/14/18 05/14/18 23:59 07:59 15:59 Intake Total 260 / 760 Balance 260 / 760 Intake: IV Fluids 150 / 150 Heparin 25,000 UNIT/500 ML D5W 150 / 150 25,000 unit In 500 ml @ 12 UNIT /KG/HR 17.376 mls/hr IVC .Q24H [facility] Rx#:[id number] Oral 110 / 110 Other: Meal Breakfast Percent of Meal Consumed 40% - General Appearance General appearance: Present: well-developed, well-nourished EENT: Present: ATNC, hearing intact, vision intact Neck: Present: supple Respiratory: Present: clear Cardiology: Present: no edema, normal S1, normal S2 Dialysis Vascular Access: Arteriovenous Fistula thrill: Yes bruit: Yes Gastrointestinal: Present: normoactive bowel sounds, no tenderness, no guarding Integumentary: Present: no rash, warm and dry Neurologic: Present: alert and oriented x3 Psychiatric: Present: mood/affect appropriate, cooperative - Lab 05/14/18 01:35 05/14/18 01:35 Most recent lab results Calcium 8.8 mg/dL (8.6-10.3) 05/14/18 01:35 Phosphorus 6.1 mg/dL (2.7-4.5) H 05/12/18 13:50 Magnesium 2.1 mg/dL (1.6-2.6) 05/12/18 13:50 Consult Discharge Plan - Plan Referrals: Rudi Avila MD [Primary Care Provider] -
--- NOTE | 2018-05-14 14:11 | Cardiology Progress Note ---
Date of Encounter: 05/14/18 Time of Encounter: 14:08 Assessment and Plan (1) NSTEMI (non-ST elevated myocardial infarction) Current Visit: Yes Status: Acute NSTEMI by enzymes. Currently chest pain free. Recommend continue DAPT, BB therapy. Okay to stop Heparin. Start statin. Recommend Imdur given known distal small vessel LAD disease. Residual moderate disease per last LHC. I had a long discussion regarding [place] and options for therapy. I stressed the importance of medical therapy as well as possible LHC. We discussed the R/B/A to a LHC. Patient and are hesitant given her somewhat poor quality of life. They will discuss and call me with their decision. Discussion w patient/family: The assessment and plan as outlined above was discussed with the patient and/or family members who expressed understanding and agreement. All questions were answered. Thank you for involving us in the care of your patient. Please call with any questions. Subjective Principal diagnosis: Dyspnea Interval history: Seen and examined. No issues reported overnight. Appears generally frail. No chest discomfort reported. Objective Vital Signs, Last 4 Hours Temp Pulse Resp BP Pulse Ox 05/14/18 13:57 116/55 05/14/18 13:50 121/52 05/14/18 13:35 115/56 05/14/18 13:20 125/50 05/14/18 13:05 119/53 05/14/18 12:50 131/54 05/14/18 12:35 121/53 05/14/18 12:20 119/82 05/14/18 12:05 97.9 F 18 134/58 05/14/18 11:30 97 05/14/18 11:21 98.0 F 79 17 158/71 97 General: Conversant, No Apparent Distress HEENT: Atraumatic, Normocephaly, Mucus Membranes Moist Neck: No JVD Cardiac: Other (Distant, regular rate and rhythm. ) Lungs: Other (Shallow, mostly clear) Neuro: Other (Tired today, fell asleep during visit. ) Abdomen: Soft, Non-Tender Skin: No rashes noted on visualized skin Musculoskeletal: No Chest Wall Tenderness Extremities: No Clubbing, No Cyanosis, No Edema, Other (LE BKA) Results 05/14/18 01:35 05/14/18 01:35 - Imaging and Cardiology Echo: report reviewed - EKG Interpretation EKG results cardiology: personally reviewed Consult Discharge Plan - Plan Referrals: Rudi Avila MD [Primary Care Provider] -
--- NOTE | 2018-05-14 14:20 | Event Note ---
Date of Encounter: 05/14/18 Time of Encounter: 14:20 - Cardiology Event Note Per discussion with Dr. Clarke, trop downward trend as well as hgb, will dc IV hep gtt now. Consider SQ hep for DVT prophylaxis.
[2018-05-14] MEDS: Heparin 25,000 UNIT/500 ML D5W 25,000 UNIT/500 ML BAG IVC SCH (16:46)
[2018-05-14] MEDS: *HR* Heparin 5,000 UNIT/ML VIAL SQ SCH (17:23)
[2018-05-14] MEDS: SUMAtriptan succinate 25 MG TABLET PO PRN (21:42)
[2018-05-15] MEDS: Acetaminophen 325 MG TABLET PO PRN ×3 (00:44→18:51)
[2018-05-15 05:01] LABS: Hematocrit 27.8 % (35.3-44.9); Hemoglobin 9.2 g/dL (11.5-15.4); Mean Corpuscular HGB Conc 33.1 g/dL (31.6-35.5); Mean Corpuscular Hemoglobin 33.6 pg (28.0-33.3); Mean Corpuscular Volume 101.5 fL (83.0-100.0); Mean Platelet Volume 9.9 fL (9.4-12.4); Platelet Count 197 K/mcL (140-400); Red Blood Count 2.74 M/mcL (3.82-4.97); Red Cell Distribution Width 14.3 % (11.5-14.5)
[2018-05-15 05:20] LABS: Calcium 8.9 mg/dL (8.6-10.3); Potassium 3.8 mEq/L (3.5-5.1)
[2018-05-15] MEDS: *HR* Heparin 5,000 UNIT/ML VIAL SQ SCH ×2 (05:34→18:51)
[2018-05-15] MEDS: Multivit/Ca/Min/Fe/FA 1 TAB TABLET PO SCH (10:08)
[2018-05-15] MEDS: cloNIDine HCl 0.1 MG TABLET PO SCH ×2 (10:14→21:35)
[2018-05-15] MEDS: Isosorbide MONOnitrate (24 HR) 30 MG TAB.ER.24H PO SCH (10:14)
[2018-05-15] MEDS: amLODIPine 5 MG TABLET PO SCH ×2 (10:14→21:34)
[2018-05-15] MEDS: Aspirin Enteric Coated 81 MG Tablet PO SCH (10:14)
--- NOTE | 2018-05-15 11:14 | Nephrology Progress Note ---
Date of Encounter: 05/15/18 Time of Encounter: 11:11 - Assessment and Plan (1) ESRD (end stage renal disease) on dialysis Current Visit: Yes Status: Acute Current regimen is TTS at [facility]. Plan for HD tomorrow. Avoid nephrotoxins and renal dose all medications. Renal diet, if able to eat. (2) NSTEMI (non-ST elevated myocardial infarction) Current Visit: Yes Status: Acute Pt and spouse spoke with Dr. Clarke. Pt and spouse agree that medical management is best option at this time. Dr. Clarke will titrate cardiovascular medications for comfort and occasional chest pain. Dr. Clarke did give the option for a LHC down the road if symptoms worsen or persist. (3) Dyspnea Current Visit: Yes Status: Acute Appears resolving, is on O2 at 3 liters per n/c. Qualifiers: Dyspnea type: unspecified Qualified Code(s): R06.00 - Dyspnea, unspecified (4) Pulmonary edema Current Visit: Yes Status: Acute Strict I/O Fluid restriction. Qualifiers: Chronicity: acute Qualified Code(s): J81.0 - Acute pulmonary edema Subjective Principal diagnosis: Dyspnea Interval history: Pt seen and examined doing well. Spoke at length with Dr. Clarke, pt and spouse re: [facility]. Objective - Vital Signs Vital signs: Vital Signs Temp Pulse Resp BP Pulse Ox 05/15/18 07:39 97.6 F 75 17 186/62 99 05/15/18 04:40 97.2 F L 68 16 154/66 98 05/14/18 19:37 97.4 F L 71 16 150/61 99 05/14/18 15:47 98.6 F 71 16 135/60 98 05/14/18 14:20 98.1 F 18 128/62 05/14/18 14:05 116/55 05/14/18 13:50 121/52 05/14/18 13:35 115/56 05/14/18 13:20 125/50 05/14/18 13:05 119/53 05/14/18 12:50 131/54 05/14/18 12:35 121/53 05/14/18 12:20 119/82 05/14/18 12:05 97.9 F 18 134/58 05/14/18 11:30 97 05/14/18 11:21 98.0 F 79 17 158/71 97 Intake and Output 05/14/18 05/15/18 05/15/18 23:59 07:59 15:59 Intake Total 253 / 253 240 / 240 Output Total 0 / 0 Balance 253 / 253 240 / 240 Intake: IV Fluids 133 / 133 Heparin 25,000 UNIT/500 ML D5W 133 / 133 25,000 unit In 500 ml @ 12 UNIT /KG/HR 17.376 mls/hr IVC .Q24H [facility] Rx#:[id number] Oral 120 / 120 240 / 240 Output: Urine 0 / 0 Other: Meal Dinner Breakfast Percent of Meal Consumed 25% 25% - General Appearance General appearance: Present: well-developed, well-nourished EENT: Present: ATNC, hearing intact, vision intact Neck: Present: supple Respiratory: Present: clear Cardiology: Present: no edema, normal S1, normal S2 Dialysis Vascular Access: Arteriovenous Fistula thrill: Yes bruit: Yes Gastrointestinal: Present: normoactive bowel sounds, no tenderness, no guarding Integumentary: Present: no rash, warm and dry Neurologic: Present: alert and oriented x3 Psychiatric: Present: mood/affect appropriate, cooperative - Lab 05/15/18 04:35 05/15/18 04:35 Most recent lab results Calcium 8.9 mg/dL (8.6-10.3) 05/15/18 04:35 Phosphorus 6.1 mg/dL (2.7-4.5) H 05/12/18 13:50 Magnesium 2.1 mg/dL (1.6-2.6) 05/12/18 13:50 Consult Discharge Plan - Plan Referrals: Rudi Avila MD [Primary Care Provider] -
--- NOTE | 2018-05-15 12:29 | Cardiology Progress Note ---
Date of Encounter: 05/15/18 Time of Encounter: 12:26 Assessment and Plan (1) NSTEMI (non-ST elevated myocardial infarction) Current Visit: Yes Status: Acute NSTEMI by enzymes. Remains chest pain-free. The patient, her , and myself long discussion regarding her diagnosis, known history of CAD. Given her enzyme elevation, we discussed the possibility of a diagnostic cardiac catheterization. However, patient has multiple comorbidities and prefers medical management only. Given her somewhat frail condition, I support her decision. Fortunately, she is currently chest pain-free and her LV function is normal. Recommend continue DAPT, BB therapy. Okay to stop Heparin. Start statin. Recommend Imdur given known distal small vessel LAD disease. No further inpatient cardiology recommendations. Please call with any questions or concerns. (2) Aortic stenosis, moderate Current Visit: Yes Status: Acute Moderate aortic stenosis described on TTE. Continue observation, current medical therapy. Repeat TTE the future when medically necessary. Discussion w patient/family: The assessment and plan as outlined above was discussed with the patient and/or family members who expressed understanding and agreement. All questions were answered. Thank you for involving us in the care of your patient. Please call with any questions. Subjective Principal diagnosis: Dyspnea Interval history: No new issues overnight. The patient continues to deny chest discomfort. General fatigue and weakness continues. Objective Vital Signs, Last 4 Hours Temp Pulse Resp BP Pulse Ox 05/15/18 11:28 98.2 F 72 18 169/70 98 General: Conversant, No Apparent Distress, Other (Fatigue) HEENT: Atraumatic, Normocephaly, Mucus Membranes Moist Neck: No JVD, Normal carotid pulses Cardiac: Reg Rate and Rhythm, Other (Mild systolic ejection murmur. Grade 2-6 in severity.) Lungs: Normal Breath Sounds, No Wheeze, Rales, Rhonchi Neuro: Alert and responsive, No focal deficits noted Abdomen: Soft, Non-Tender Skin: No rashes noted on visualized skin Musculoskeletal: No Chest Wall Tenderness Extremities: No Clubbing, No Cyanosis, Other ([id number] amputation) Results 05/15/18 04:35 05/15/18 04:35 Lab Results 05/15/18 05/15/18 04:35 04:35 WBC 4.4 Hgb 9.2 L Hct 27.8 L Plt Count 197 Sodium 138 Potassium 3.8 Chloride 97 L Carbon Dioxide 32 H BUN 20 Creatinine 3.50 H Glucose 104 Calcium 8.9 - Imaging and Cardiology Echo: report reviewed Consult Discharge Plan - Plan Referrals: Rudi Avila MD [Primary Care Provider] -
--- NOTE | 2018-05-15 15:15 | Internal Med Progress Note ---
Hospitalist Progress Note - Encounter Date of Encounter: 05/15/18 Time of Encounter: 11:00 - Subjective Interval History: Patient states she feels very weak. Next hemodialysis is tomorrow. She was seen by cardiology is recommending medical management of her heart disease. She is currently denying any chest pain. Breathing is improved. No nausea, vomiting, diarrhea. No fevers or chills. Other than above, a 10 point review of systems is negative - Exam Vitals: Temp Pulse Resp BP Pulse Ox 98.2 F 72 18 169/70 98 05/15/18 11:28 05/15/18 11:28 05/15/18 11:28 05/15/18 11:28 05/15/18 11:28 Exam: General: Alert and oriented. No acute distress. Well-developed. Head: atraumatic, normocephalic. Eye: pupils equal, round, and reactive. Sclera anicteric. EOMI. ENT: Moist mucus membrane. Normal oropharynx. Neck: supple, trachea midline. Lungs: Mild diffuse crackles bilaterally. Cardiovascular: Normal S1 & S2. Systolic murmur grade 2. No rubs or gallops. No JVD. Pulse regular. Abdomen: Soft. Normal bowel sounds. Nondistended, no rigidity. Nontender. Extremities: No deformity, no edema or tenderness, no joint swelling or clubbing. Left leg below knee amputation noted. Right arm AV fistula with palpable thrill Skin: warm, dry, and intact. No rash or lesions. Neurological: Normal cognition and motor skills. - Assessment and Plan (1) Dyspnea Current Visit: Yes Status: Acute Assessment and Plan: Likely secondary to pulmonary edema. Dialysis yesterday and today. Weaned to 2L nasal cannula. Dyspnea improved. 05/15: Improving. Next hemodialysis tomorrow. (2) Pulmonary edema Current Visit: Yes Status: Acute Assessment and Plan: History of CHF with LVEF 60% on TTE 01/2018. History of ESRD on HD Sun/Sun/Sun. Last dialysis on Sat 05/11 only 2 hours due to not feeling well. Dialysis yesterday and today. Fluid restriction, strict I/O. Daily weights. (3) End stage renal disease Current Visit: Yes Status: Chronic Assessment and Plan: History of ESRD on HD Sun/Marleni/Sat at [facility]. Last dialysis on Sat 05/11 only 2 hours due to not feeling well. Dialysis yesterday and today. Nephrology consulted and following. 05/15: HD in am (4) NSTEMI (non-ST elevated myocardial infarction) Current Visit: Yes Status: Acute Assessment and Plan: History of CAD involving distal LAD. History of ESRD on HD. At admission, troponin elevated to 0.25. Yesterday, troponin 2.12. Today, 1.87. Continue ASA, Plavix, statin, BB as tolerated, per Cardiology. Discontinue heparin drip due to Hb and troponin downtrending. Will start Imdur as recommended by Cardiology. 05/15: Not felt to have had a non-STEMI. Management as outlined per cardiology. (5) Hypertension Current Visit: Yes Status: Acute Assessment and Plan: Imdur added today. Monitor. DVT Prophylaxis: Sub Q heparin - Time Spent with Patient Total time spent is greater than 50% in coordination of care (as documented) at patient's floor/unit and/or counseling patient: 25 - 35 minutes Internal Medicine: Result - Labs CBC & Chem 7: 05/15/18 04:35 05/15/18 04:35 Labs: Short CBC 05/15/18 Range/Units 04:35 WBC 4.4 (4.3-11.1) K/mcL Hgb 9.2 L (11.5-15.4) g/dL Hct 27.8 L (35.3-44.9) % Plt Count 197 (140-400) K/mcL BMP 05/15/18 04:35 Sodium 138 Potassium 3.8 Chloride 97 L Carbon Dioxide 32 H BUN 20 Creatinine 3.50 H Glucose 104 Calcium 8.9 - ABG Interpretation ABG results: PT/INR, D-dimer PT 12.9 Seconds (9.4-12.1) H 05/13/18 13:15 Consult Discharge Plan - Plan Referrals: Rudi Avila MD [Primary Care Provider] - (1) Dyspnea Qualifiers: Dyspnea type: unspecified Qualified Code(s): R06.00 - Dyspnea, unspecified (2) Pulmonary edema Qualifiers: Chronicity: acute Qualified Code(s): J81.0 - Acute pulmonary edema (5) Hypertension Qualifiers: Hypertension type: essential hypertension Qualified Code(s): I10 - Essential (primary) hypertension
[2018-05-16] MEDS: Acetaminophen 325 MG TABLET PO PRN ×3 (02:27→22:39)
[2018-05-16] MEDS: *HR* Heparin 5,000 UNIT/ML VIAL SQ SCH ×2 (05:36→17:57)
[2018-05-16 06:22] LABS: Hematocrit 28.8 % (35.3-44.9); Hemoglobin 9.7 g/dL (11.5-15.4); Mean Corpuscular HGB Conc 33.7 g/dL (31.6-35.5); Mean Corpuscular Hemoglobin 33.7 pg (28.0-33.3); Mean Platelet Volume 9.7 fL (9.4-12.4); Platelet Count 230 K/mcL (140-400); Red Blood Count 2.88 M/mcL (3.82-4.97)
[2018-05-16 06:44] LABS: Calcium 9.2 mg/dL (8.6-10.3)
[2018-05-16] MEDS ORDERED: 0.9 % Sodium Chloride 2,000 ML ONE (07:41)
[2018-05-16] MEDS ORDERED: 0.9 % Sodium Chloride 250 ML IVC PRN (07:47)
[2018-05-16] MEDS ORDERED: 0.9 % Sodium Chloride 1,000 ML PRIME SCH (08:00)
--- NOTE | 2018-05-16 09:15 | Internal Med Progress Note ---
<Valerio Reyes - Last Filed: 05/16/18 16:55> Hospitalist Progress Note - Encounter Date of Encounter: 05/16/18 - Exam Vitals: Temp Pulse Resp BP Pulse Ox 98.9 F 74 16 152/68 94 05/16/18 16:04 05/16/18 16:04 05/16/18 16:04 05/16/18 16:04 05/16/18 16:04 - Assessment and Plan (1) Dyspnea Current Visit: Yes Status: Resolved (2) Pulmonary edema Current Visit: Yes Status: Acute (3) End stage renal disease Current Visit: Yes Status: Chronic (4) NSTEMI (non-ST elevated myocardial infarction) Current Visit: Yes Status: Acute (5) Hypertension Current Visit: Yes Status: Acute - Time Spent with Patient Total time spent is greater than 50% in coordination of care (as documented) at patient's floor/unit and/or counseling patient: Internal Medicine: Result - Labs CBC & Chem 7: 05/16/18 05:15 05/16/18 05:15 Labs: Short CBC 05/16/18 Range/Units 05:15 WBC 5.1 (4.3-11.1) K/mcL Hgb 9.7 L (11.5-15.4) g/dL Hct 28.8 L (35.3-44.9) % Plt Count 230 (140-400) K/mcL BMP 05/16/18 05:15 Sodium 135 L Potassium 4.0 Chloride 95 L Carbon Dioxide 28 BUN 31 H Creatinine 5.09 H Glucose 100 Calcium 9.2 - ABG Interpretation ABG results: PT/INR, D-dimer PT 12.9 Seconds (9.4-12.1) H 05/13/18 13:15 Consult Discharge Plan - Plan Referrals: Rudi Avila MD [Primary Care Provider] - 05/23/18 1:15 pm (Please follow up as schedule...) Prescriptions: Atorvastatin [Lipitor] 20 mg PO HS #30 tablet Isosorbide MONOnitrate (24 HR) [Imdur] 30 mg PO DAILY #30 tab.er.24h - Attending Attestation I performed an independent interview and examin of this patient. I agree with the findings, assessment, and plan of Dr. Packer, internal medicine international accountant. Patient is improved. Her primary problem presently is weakness. She is otherwise stable for discharge once disposition is arranged. Unfortunately she states she is too weak to go home. Will have physical therapy evaluate this patient. Patient otherwise is improved since admission. Her volume status appears to be euvolemic. Gen NAD AAOx3 Lung - dimin bs bases ht rrr abd soft + bs, nt Ext no sig edema <Heather Packer - Last Filed: 05/16/18 17:26> Hospitalist Progress Note - Encounter Date of Encounter: 05/16/18 Time of Encounter: 09:00 - Subjective Interval History: Patient seen and examined. No acute events overnight. Patient is resting comfortably in bed. Patient states she feels somewhat better. States she feels less tired and overall just better. Patient reports weakness is better. States cough is better and is productive of white sputum. Denies chest pain or shortness of breath. Denies swelling. Denies abdominal pain, nausea/ vomiting, diarrhea/constipation. Denies urinary symptoms. - Exam Vitals: Temp Pulse Resp BP Pulse Ox 98.9 F 86 16 179/64 95 05/16/18 07:07 05/16/18 07:07 05/16/18 07:07 05/16/18 07:07 05/16/18 07:07 Exam: General: Alert and oriented. No acute distress. Well-developed. Head: atraumatic, normocephalic. Eye: pupils equal, round, and reactive. Sclera anicteric. EOMI. ENT: Moist mucus membrane. Normal oropharynx. Neck: supple, trachea midline. Lungs: Very mild diffuse crackles bilaterally. Shallow breaths. No respiratory distress. No accessory muscle use. Cardiovascular: Normal S1 & S2. Systolic murmur grade 2. No rubs or gallops. No JVD. Pulse regular. Abdomen: Soft. Normal bowel sounds. Nondistended, no rigidity. Nontender. Extremities: No deformity, no edema or tenderness, no joint swelling or clubbing. Left leg below knee amputation noted. Skin: warm, dry, and intact. No rash or lesions. Neurological: Normal cognition and motor skills. - Assessment and Plan (1) Pulmonary edema Current Visit: Yes Status: Acute Assessment and Plan: History of CHF with LVEF 60% on TTE 01/2018. History of ESRD on HD Sun/Sun/Sun. Last dialysis on Sat 05/11 only 2 hours due to not feeling well. Dialysis. Fluid restriction, strict I/O. Daily weights. (2) Dyspnea Current Visit: Yes Status: Resolved Assessment and Plan: Likely secondary to pulmonary edema. Dialysis. Weaned to room air. Dyspnea improved. (3) End stage renal disease Current Visit: Yes Status: Chronic Assessment and Plan: History of ESRD on HD Tue/Marlen[place]/Sat at [facility]. Last dialysis on Sat 05/11 only 2 hours due to not feeling well. Nephrology consulted and following. (4) NSTEMI (non-ST elevated myocardial infarction) Current Visit: Yes Status: Acute Assessment and Plan: History of CAD involving distal LAD. History of ESRD on HD. At admission, troponin elevated to 0.25. Next day, troponin 2.12. Day after, 1.87. Continue ASA, Plavix, statin, BB, and imdur, as tolerated, per Cardiology. (5) Hypertension Current Visit: Yes Status: Chronic Assessment and Plan: On Norvasc. DVT Prophylaxis: Sub Q heparin - Time Spent with Patient Total time spent is greater than 50% in coordination of care (as documented) at patient's floor/unit and/or counseling patient: Internal Medicine: Result - Labs CBC & Chem 7: 05/16/18 05:15 05/16/18 05:15 Labs: Short CBC 05/16/18 Range/Units 05:15 WBC 5.1 (4.3-11.1) K/mcL Hgb 9.7 L (11.5-15.4) g/dL Hct 28.8 L (35.3-44.9) % Plt Count 230 (140-400) K/mcL [facility] 05/16/18 05:15 Sodium 135 L Potassium 4.0 Chloride 95 L Carbon Dioxide 28 BUN 31 H Creatinine 5.09 H Glucose 100 Calcium 9.2 - ABG Interpretation ABG results: PT/INR, D-dimer PT 12.9 Seconds (9.4-12.1) H 05/13/18 13:15 <Valerio Reyes - Last Filed: 05/16/18 16:55> (1) Dyspnea Qualifiers: Dyspnea type: unspecified Qualified Code(s): R06.00 - Dyspnea, unspecified (2) Pulmonary edema Qualifiers: Chronicity: acute Qualified Code(s): J81.0 - Acute pulmonary edema (5) Hypertension Qualifiers: Hypertension type: essential hypertension Qualified Code(s): I10 - Essential (primary) hypertension <Heather Packer - Last Filed: 05/16/18 17:26> (1) Pulmonary edema Qualifiers: Chronicity: acute Qualified Code(s): J81.0 - Acute pulmonary edema (2) Dyspnea Qualifiers: Dyspnea type: unspecified Qualified Code(s): R06.00 - Dyspnea, unspecified (5) Hypertension Qualifiers: Hypertension type: essential hypertension Qualified Code(s): I10 - Essential (primary) hypertension
--- NOTE | 2018-05-16 11:02 | Nephrology Progress Note ---
Date of Encounter: 05/16/18 Time of Encounter: 11:00 - Assessment and Plan (1) ESRD (end stage renal disease) on dialysis Current Visit: Yes Status: Acute Current regimen is TTS at [facility]. HD in progress today. Avoid nephrotoxins and renal dose all medications. Renal diet, if able to eat. (2) NSTEMI (non-ST elevated myocardial infarction) Current Visit: Yes Status: Acute Medical management. Per Cardio. (3) Dyspnea Current Visit: Yes Status: Acute Appears resolving, is on O2 at 3 liters per n/c. Qualifiers: Dyspnea type: unspecified Qualified Code(s): R06.00 - Dyspnea, unspecified (4) Pulmonary edema Current Visit: Yes Status: Acute Strict I/O Fluid restriction. Qualifiers: Chronicity: acute Qualified Code(s): J81.0 - Acute pulmonary edema (5) Physical deconditioning Current Visit: Yes Status: Acute PT/OT ordered. Subjective Principal diagnosis: Dyspnea Interval history: Pt seen and examined during HD, tolerating well. C/O of fatigue. PT/OT ordered. Objective - Vital Signs Vital signs: Vital Signs Temp Pulse Resp BP Pulse Ox 05/16/18 07:07 98.9 F 86 16 179/64 95 05/16/18 04:12 97.9 F 68 16 162/71 91 05/15/18 23:27 97.9 F 64 16 175/70 91 05/15/18 20:13 98.4 F 76 16 158/63 95 05/15/18 11:28 98.2 F 72 18 169/70 98 Intake and Output 05/15/18 05/16/18 05/16/18 23:59 07:59 15:59 Intake Total 240 / 240 Output Total 0 / 0 Balance 240 / 240 0 / 0 Intake: Oral 240 / 240 Output: Urine 0 / 0 Other: Meal Dinner Percent of Meal Consumed 35% # Urine Diapers 1 Weight 73.4 kg - General Appearance General appearance: Present: well-developed, well-nourished EENT: Present: ATNC, hearing intact, vision intact Neck: Present: supple Respiratory: Present: clear Cardiology: Present: no edema, normal S1, normal S2 Dialysis Vascular Access: Arteriovenous Fistula thrill: Yes bruit: Yes Gastrointestinal: Present: normoactive bowel sounds, no tenderness, no guarding Integumentary: Present: no rash, warm and dry Neurologic: Present: alert and oriented x3 Psychiatric: Present: mood/affect appropriate, cooperative - Lab 05/16/18 05:15 05/16/18 05:15 Most recent lab results Calcium 9.2 mg/dL (8.6-10.3) 05/16/18 05:15 Phosphorus 6.1 mg/dL (2.7-4.5) H 05/12/18 13:50 Magnesium 2.1 mg/dL (1.6-2.6) 05/12/18 13:50 Consult Discharge Plan - Plan Referrals: Rudi Avila MD [Primary Care Provider] - 05/23/18 1:15 pm (Please follow up as schedule...)
[2018-05-16] MEDS: Aspirin Enteric Coated 81 MG Tablet PO SCH (13:31)
[2018-05-16] MEDS: Isosorbide MONOnitrate (24 HR) 30 MG TAB.ER.24H PO SCH (13:31)
[2018-05-16] MEDS: Multivit/Ca/Min/Fe/FA 1 TAB TABLET PO SCH (13:31)
[2018-05-16] MEDS: amLODIPine 5 MG TABLET PO SCH ×2 (13:31→21:47)
[2018-05-16] MEDS: cloNIDine HCl 0.1 MG TABLET PO SCH ×2 (13:32→21:47)
--- NOTE | 2018-05-16 13:40 | Discharge Summary ---
<Heather Packer - Last Filed: 05/17/18 09:56> - NOTES TO OUTPATIENT PROVIDER Notes to Outpatient Provider: Patient requires referral to vascular surgeon for issue with graft. Orders not resulted at time of discharge: Blood cultures. Date of Encounter: 05/17/18 Time of Encounter: 08:45 - Discharge Diagnosis (1) Pulmonary edema Priority: Primary Status: Acute Qualifiers: Chronicity: acute Qualified Code(s): J81.0 - Acute pulmonary edema (2) Dyspnea Priority: Secondary Status: Resolved Qualifiers: Dyspnea type: unspecified Qualified Code(s): R06.00 - Dyspnea, unspecified (3) End stage renal disease Priority: Secondary Status: Chronic (4) NSTEMI (non-ST elevated myocardial infarction) Priority: Secondary Status: Acute (5) Hypertension Priority: Secondary Status: Chronic Qualifiers: Hypertension type: essential hypertension Qualified Code(s): I10 - Essential (primary) hypertension Hospital course: Ms. Eng is a 72 year old female with past medical history significant for end stage renal disease on dialysis, congestive heart failure, hypertension, migraine, depression, and migraines who presents for 3-4 day history of shortness of breath, nausea, vomiting, non productive cough, fever (unknown actual temperature), chills, generalized aches, generalized weakness, and decreased PO intake getting progressively worse. Receives dialysis Sunday, , Sunday. Reportedly has not received a full session in the last two weeks due to arm pain while receiving dialysis on same arm as fistula. On presentation, patient was tachycardic with otherwise normal vital signs. CBC was unremarkable and lactic acid normal. Troponin was elevated at 0.25. BNP was elevated at 2795. CMP was unremarkable. EKG showed sinus tachycardia without acute ischemic changes. CXR showed CHF and mild pulmonary edema. CTA showed CHF and interstitial edema, no PE. Nasal MRSA screen was negative. Blood cultures showed no growth. TTE in 01/2018 showed LVEF 60%. Carotid duplex in 01/2018 showed right carotid stenosis 60-79%. Patient was admitted for pulmonary edema, dyspnea, and elevated troponin. Nephrology was consulted for ESRD on hemodialysis and patient was placed back on normal dialysis schedule. Dialysis along with oxygen supplementation resulted in resolution of dyspnea. Cardiology was consulted for elevated troponin. After evaluation and discussion with patient, Cardiology recommended medical management with ASA, Plavix, statin, and BB. PT/OT were consulted and recommended outpatient rehab. Patient reports improvement of symptoms and states she feels well enough to go home. - Time Spent with Patient Total time spent providing and/or coordinating discharge services: Greater than 30 minutes - Discharge Medications Prescriptions: Atorvastatin [Lipitor] 20 mg PO HS #30 tablet Isosorbide MONOnitrate (24 HR) [Imdur] 30 mg PO DAILY #30 tab.er.24h Home Medications: Lidocaine/Prilocaine [Emla] 1 appl TP ONCE PRN 10/09/16 [History] Clopidogrel [Plavix] 75 mg PO DAILY tablet 10/16/16 [Rx] Citalopram [CeleXA] 20 mg PO DAILY 03/30/17 [History] Multivitamin [Multivitamins] 1 cap PO DAILY 09/03/17 [History] Acetaminophen [Tylenol] 650 mg PO Q6HR PRN #30 tablet 09/10/17 [Rx] Aspirin Enteric Coated [Aspirin EC] 81 mg PO DAILY #30 tablet. 01/22/18 [Rx] Metoprolol Tartrate [Lopressor] 50 mg PO BID 02/22/18 [History] SUMAtriptan succinate [Imitrex] 25 mg PO Q2H PRN #30 tablet 04/10/18 [Rx] amLODIPine [Norvasc] 5 mg PO BID #0 04/10/18 [Rx] cloNIDine HCl [CloNIDine HCl] 0.1 mg PO BID #60 tablet 04/10/18 [Rx] Atorvastatin [Lipitor] 20 mg PO HS #30 tablet 05/16/18 [Rx] Isosorbide MONOnitrate (24 HR) [Imdur] 30 mg PO DAILY #30 tab.er.24h 05/16/18 [ Rx] Allergies/Adverse Reactions: 3 Allergy/AdvReac Type Severity Reaction Status Date / Time Penicillins Allergy Hives Verified 02/22/18 16:03 Date of admission: 05/14/18 08:58 Primary care physician: Rudi Avila MD Consults: 05/15/18 15:18 Consult to Physical Therapy [CONS] Routine Comment: Evaluate, develop and implement POC Reason for Consult: weakness/decond Does patient have active BEDREST order?: No Is patient medically & hemodynamically stable?: Yes Patient assessed for mobility or mobilized this visit?: No 05/16/18 08:00 Consult to Dialysis [CONS] ONCE 05/16/18 10:59 Consult to Occupational Therapy [CONS] Routine Comment: Evaluate, develop and implement POC Reason for Consult: treat and eval Does patient have active BEDREST order?: No Is patient medically & hemodynamically stable?: No Patient assessed for mobility or mobilized this visit?: No Consult to Physical Therapy [CONS] Routine Comment: Evaluate, develop and implement POC Reason for Consult: treat and eval. Does patient have active BEDREST order?: No Is patient medically & hemodynamically stable?: Yes Patient assessed for mobility or mobilized this visit?: No Discharging clinician: Heather Packer Anticipated date of discharge: 05/17/18 - Constitutional Vitals: Temp Pulse Resp BP Pulse Ox 97.5 F L 86 18 122/58 95 05/16/18 09:35 05/16/18 07:07 05/16/18 09:35 05/16/18 12:26 05/16/18 07:07 Exam: General: Alert and oriented. No acute distress. Well-developed. Head: atraumatic, normocephalic. Eye: pupils equal, round, and reactive. Sclera anicteric. EOMI. ENT: Moist mucus membrane. Normal oropharynx. Neck: supple, trachea midline. Lungs: CTAB. Shallow breaths. No respiratory distress. No accessory muscle use. Cardiovascular: Normal S1 & S2. Systolic murmur grade 2. No rubs or gallops. No JVD. Pulse regular. Abdomen: Soft. Normal bowel sounds. Nondistended, no rigidity. Nontender. Extremities: No deformity, no edema or tenderness, no joint swelling or clubbing. Left leg below knee amputation noted. Skin: warm, dry, and intact. No rash or lesions. Neurological: Normal cognition and motor skills. - Patient Status Disposition: Home, Self-Care Condition: Fair - Discharge Instructions Follow Up With: Rudi Avila MD [Primary Care Provider] - 05/23/18 1:15 pm (Please follow up as schedule...) - Diet and Activity Activity: as per physical therapy, increase activity as tolerated Diet: advance to your usual diet <Valerio Reyes - Last Filed: 05/17/18 13:44> Date of Encounter: 05/17/18 - Discharge Diagnosis (1) Dyspnea Status: Resolved Qualifiers: Dyspnea type: unspecified Qualified Code(s): R06.00 - Dyspnea, unspecified (2) Pulmonary edema Status: Acute Qualifiers: Chronicity: acute Qualified Code(s): J81.0 - Acute pulmonary edema (3) End stage renal disease Status: Chronic (4) NSTEMI (non-ST elevated myocardial infarction) Status: Acute (5) Hypertension Status: Chronic Qualifiers: Hypertension type: essential hypertension Qualified Code(s): I10 - Essential (primary) hypertension Hospital course: Ms. Eng is a 72 year old female - Time Spent with Patient Total time spent providing and/or coordinating discharge services: Date of admission: 05/14/18 08:58 Primary care physician: Rudi Avila MD Consults: 05/15/18 15:18 Consult to Physical Therapy [CONS] Routine Comment: Evaluate, develop and implement POC Reason for Consult: weakness/decond Does patient have active BEDREST order?: No Is patient medically & hemodynamically stable?: Yes Patient assessed for mobility or mobilized this visit?: No 05/16/18 08:00 Consult to Dialysis [CONS] ONCE 05/16/18 10:59 Consult to Occupational Therapy [CONS] Routine Comment: Evaluate, develop and implement POC Reason for Consult: treat and eval Does patient have active BEDREST order?: No Is patient medically & hemodynamically stable?: No Patient assessed for mobility or mobilized this visit?: No Consult to Physical Therapy [CONS] Routine Comment: Evaluate, develop and implement POC Reason for Consult: treat and eval. Does patient have active BEDREST order?: No Is patient medically & hemodynamically stable?: Yes Patient assessed for mobility or mobilized this visit?: No - Constitutional Vitals: Temp Pulse Resp BP Pulse Ox 98.0 F 61 16 107/54 97 05/17/18 11:38 05/17/18 11:38 05/17/18 11:38 05/17/18 11:38 05/17/18 11:38 - Attending Attestation I performed an independent interview and exam of this patient. I agree with the findings, assessment, and plan of Dr. Crow, internal medicine corporate intern. Patient appears euvolemic. She is improved in strength and stable for discharge to home. 36 minutes spent on discharge and coordination of care. She will follow up with dialysis as an outpatient tomorrow, and follow up with her vascular surgeon to have her fistula reevaluated. Gen: NAD, AAOx3 Lung - CTAB Ht RRR Abd - NT Ext no sg edema Neuro: nonfocal
[2018-05-16] MEDS ORDERED: Melatonin 3 MG TABLET PO PRN (17:26)
[2018-05-17 04:54] LABS: Hemoglobin 10.5 g/dL (11.5-15.4); Mean Corpuscular HGB Conc 33.9 g/dL (31.6-35.5); Mean Corpuscular Hemoglobin 33.9 pg (28.0-33.3); Mean Platelet Volume 9.6 fL (9.4-12.4); Platelet Count 243 K/mcL (140-400); Red Cell Distribution Width 14.3 % (11.5-14.5)
[2018-05-17 05:21] LABS: Calcium 9.7 mg/dL (8.6-10.3); Potassium 4.1 mEq/L (3.5-5.1)
[2018-05-17] MEDS: *HR* Heparin 5,000 UNIT/ML VIAL SQ SCH (06:06)
[2018-05-17] MEDS: Aspirin Enteric Coated 81 MG Tablet PO SCH (09:25)
[2018-05-17] MEDS: Acetaminophen 325 MG TABLET PO PRN (09:25)
[2018-05-17] MEDS: cloNIDine HCl 0.1 MG TABLET PO SCH (09:26)
[2018-05-17] MEDS: amLODIPine 5 MG TABLET PO SCH (09:26)
[2018-05-17] MEDS: Isosorbide MONOnitrate (24 HR) 30 MG TAB.ER.24H PO SCH (09:26)
[2018-05-17] MEDS: Multivit/Ca/Min/Fe/FA 1 TAB TABLET PO SCH (09:26)
[2018-05-17 11:45] VITALS: BP 107/54
== END 2018-05-17 13:48 | disposition home or self-care (01) | DRG 280 ==
LOC: EMEROOARM 13:01 → 2ANU 13:01 → SUATTDRO 18:13 → 2ANU 18:59
PROVIDERS: ADMIT Internal Medicine; ATTEND Internal Medicine

== ENCOUNTER 2019-03-20 14:21 | Inpatient (IN) ==
[2019-03-20] MEDS ORDERED: Metoclopramide 10 MG/2 ML VIAL IVP ONE (14:42)
[2019-03-20 15:17] LABS: Basophils % 0.1 %; Eosinophils % 0.3 %; Hematocrit 34.5 % (35.3-44.9); Hemoglobin 11.7 g/dL (11.5-15.4); Immature Granulocytes % 0.8 % (0-4); Lymphocytes # 0.2 K/mcL (0.6-4.6); Lymphocytes % 3.3 %; Mean Corpuscular HGB Conc 33.9 g/dL (31.6-35.5); Mean Corpuscular Hemoglobin 35.3 pg (28.0-33.3); Mean Corpuscular Volume 104.2 fL (83.0-100.0); Mean Platelet Volume 9.2 fL (9.4-12.4); Monocytes # 0.2 K/mcL (0.0-1.3); Monocytes % 2.1 %; Neutrophils # 6.8 K/mcL (1.6-8.9); Platelet Count 207 K/mcL (140-400); Red Blood Count 3.31 M/mcL (3.82-4.97); Red Cell Distribution Width 16.4 % (11.5-14.5); Segmented Neutrophils % 93.4 %; White Blood Count 7.3 K/mcL (4.3-11.1)
[2019-03-20 15:30] LABS: Albumin/Globulin Ratio 1.4 (1.1-2.2); Bilirubin,Total 0.3 mg/dL (0.3-1.0); Calcium 9.5 mg/dL (8.6-10.3); Globulin 2.9 g/dL (2.4-3.5); Potassium 3.7 mEq/L (3.5-5.1); Total Protein 6.9 g/dL (6.4-8.9)
[2019-03-20 15:37] LABS: Troponin I 0.22 ng/mL (< 0.04)
--- NOTE | 2019-03-20 15:51 | Emergency Department Note ---
Disposition Clinical Impression: Elevated troponin, ESRD (end stage renal disease) Headache Qualifiers: Headache type: unspecified Headache chronicity pattern: acute headache Intractability: not intractable Qualified Code(s): R51 - Headache Disposition: Admitted As Inpatient Condition: Fair Reasons to Return/Additional Instructions: 1. Please follow up with your primary care physician within 2-3 days. 2. Please return to the Emergency Department if symptoms worsen, if you have any other concerns, or for any of the following reasons: Fever greater than 104. vision changes, chest pain, shortness of breath, difficulty breathing, abdominal pain, numbness or tingling, or any weaknesses. 3. Please take medications as prescribed. Referrals: Rudi Avila MD [Primary Care Provider] - Forms: ED Satisfaction Letter Time of Disposition: 17:17 General Adult HPI - General Chief complaint: ED Headache Stated complaint: Weakness Time Seen by Provider: 03/20/19 14:30 Source: patient, EMS Mode of arrival: EMS Limitations: no limitations Nursing Notes Reviewed: Yes Vital Signs Reviewed: Yes - History of Present Illness HPI Narrative: Patient is a 73 female past medical history of end-stage renal disease undergoes dialysis 4 times a week, CAD, NSTEMI, Aortic Stenosis, and migraine presents the ED for evaluation of a migraine as well as generalized weakness has been going on since she woke up this morning. Patient describes as a right sided sharp stabbing migraine that feels similar to migraines that she has had in the past history with photophobia and nausea. She states she felt this prior to undergoing dialysis this morning. Denies any focal neurological deficits. States she is think she takes medication at home for her migraines but cannot recall what is called. Pain Scale: 10 - Related Data Home Medications Medication Instructions Recorded Confirmed Multivitamin [Multivitamins] 1 cap PO DAILY 09/03/17 10/18/18 Metoprolol Tartrate [Lopressor] 50 mg PO BID 02/22/18 10/18/18 Atorvastatin Calcium [Lipitor] 20 mg PO HS 08/14/18 10/18/18 Cinacalcet [Sensipar] 30 mg PO DAILY 08/14/18 10/18/18 Folic Acid/Vit Bcomp,C [Renal-Tulio 0.8 mg PO DAILY 08/14/18 10/18/18 Tablet] Gabapentin [Neurontin] 100 mg PO TID 08/14/18 10/18/18 Promethazine [Phenergan] 25 mg PO Q8H PRN 08/14/18 10/18/18 Citalopram [CeleXA] 20 mg PO DAILY 10/18/18 10/18/18 Previous Rx's Medication Instructions Recorded Clopidogrel [Plavix] 75 mg PO DAILY tablet 10/16/16 Acetaminophen [Tylenol] 650 mg PO Q6HR PRN #30 tablet 09/10/17 Aspirin Enteric Coated [Aspirin EC] 81 mg PO DAILY #30 tablet. 01/22/18 SUMAtriptan succinate [Imitrex] 25 mg PO Q2H PRN #30 tablet 04/10/18 amLODIPine [Norvasc] 5 mg PO BID #0 04/10/18 cloNIDine HCl [CloNIDine HCl] 0.1 mg PO BID #60 tablet 04/10/18 Allergies Allergy/AdvReac Type Severity Reaction Status Date / Time Penicillins Allergy Hives Verified 08/14/18 13:40 Past Medical History - Past Medical History Medical history: Reports: coronary artery disease, diabetes, dialysis, hyperlipidemia, hypertension, renal disease, other Surgical history: Reports: carotid endarterectomy, hysterectomy, orthopedic, other, thyroidectomy, other Psychiatric history: Reports: anxiety, depression SUPERVISOR STAVE CUTTING history: Reports: no SUPERVISOR STAVE CUTTING history - Social History Smoking Status: Never smoker Smokeless Tobacco Status: No Alcohol use: Reports: none Drug use: Reports: none Physical Exam - General Limitations: no limitations General appearance: alert, in no apparent distress Course Course Narrative: Patient underwent evaluation for weakness as well as her migraine headache and treatment at the [facility]. She will undergo cardiac evaluation, basic labs as well as a head CT, chest x-ray and EKG. - Reevaluation(s) Reevaluation #1: Patient's troponin came back elevated at 0.22. Appears that she has had chronic elevations in the past. Her EKG was noted to have stress ST depressions in the inferior leads which appeared to be new when compared to an old EKG. At this time interventional was called to evaluate the patient's EKG. Upon further review of her records. Cath in 2015 showing 70-80% distal LAD stenosis and 50% ostial circumflex artery stenosis. Patient had NSTEMI in April 2018 in which she chose to undergo medical management over cathaterization. Patient admitted for further evaluation of her symptoms. Time: 15:54 Vital Signs Temperature 97.6 F 03/20/19 14:24 Pulse Rate 87 03/20/19 14:24 Respiratory Rate 16 03/20/19 14:24 Blood Pressure 144/61 03/20/19 14:24 O2 Sat by Pulse Oximetry 99 03/20/19 14:24 Temperature 97.6 F 03/20/19 14:24 Pulse Rate 92 03/20/19 18:04 Respiratory Rate 16 03/20/19 18:04 Blood Pressure 144/65 03/20/19 18:04 O2 Sat by Pulse Oximetry 97 03/20/19 18:04 Oxygen Delivery Oxygen Delivery Room Air Medical Decision Making - Medical Records Medical records reviewed: Yes I reviewed the patient's medical records. - Lab Data Lab results reviewed: Yes I reviewed the patient's lab results. Result diagrams: 03/20/19 14:54 03/20/19 14:54 Lab Results 03/20/19 03/20/19 Range/Units 14:54 14:54 WBC 7.3 (4.3-11.1) K/mcL RBC 3.31 L (3.82-4.97) M/mcL Hgb 11.7 (11.5-15.4) g/dL Hct 34.5 L (35.3-44.9) % MCV 104.2 H (83.0-100.0) fL MCH 35.3 H (28.0-33.3) pg MCHC 33.9 (31.6-35.5) g/dL RDW 16.4 H (11.5-14.5) % Plt Count 207 (140-400) K/mcL MPV 9.2 L (9.4-12.4) fL Immature Gran % 0.8 (0-4) % Seg Neutrophils % 93.4 % Lymphocytes % 3.3 % Monocytes % 2.1 % Eosinophils % 0.3 % Basophils % 0.1 % Neutrophils # 6.8 (1.6-8.9) K/mcL Lymphocytes # 0.2 L (0.6-4.6) K/mcL Monocytes # 0.2 (0.0-1.3) K/mcL Eosinophils # 0.0 (0.0-0.6) K/mcL Basophils # 0.0 (0.0-0.2) K/mcL Sodium 128 L (136-145) mEq/L Potassium 3.7 (3.5-5.1) mEq/L Chloride 88 L (98-107) mEq/L Carbon Dioxide 27 (23-29) mEq/L BUN 26 H (8-23) mg/dL Creatinine 3.42 H (0.60-1.20) mg/dL Est GFR ( Amer) 16 L (> 60) Est GFR (Non-Af Amer) 13 L (> 60) BUN/Creatinine Ratio 8 (6-26) Glucose 196 H (70-105) mg/dL Calculated Osmolality 276 L (280-300) Calcium 9.5 (8.6-10.3) mg/dL Total Bilirubin 0.3 (0.3-1.0) mg/dL AST 14 (13-39) Units/L ALT 4 L (7-52) Units/L Alkaline Phosphatase 68 (34-104) Units/L Troponin I 0.22 H* (< 0.04) ng/mL Serum Total Protein 6.9 (6.4-8.9) g/dL Albumin 4.0 (3.5-5.7) g/dL Globulin 2.9 (2.4-3.5) g/dL Albumin/Globulin Ratio 1.4 (1.1-2.2) - Radiology Data Radiology results reviewed: Yes I reviewed the patient's radiology results. Chest X-Ray 03/20/19 14:40 IMPRESSION: 1. Mild pulmonary vascular congestion. 2. Left basilar atelectasis or infiltrate, slightly improved since prior examination. D/ / Cha Osorio MD / Cha Osorio MD Interpreting Provider: Cha Osorio MD Head CT 03/20/19 14:40 IMPRESSION: No acute intracranial abnormality. Chronic small vessel disease and remote left frontal lobe infarct. D/ / Semaj Dowd MD / Semaj Dowd MD Interpreting Provider: Semaj Dowd MD - EKG Data EKG #1 EKG attestation: Yes I reviewed and interpreted this EKG. EKG results narrative: EKG done at 15:45 at NSR at rate of 89. Normal axis. Wide QRS. Inferior leads have ST depression which appears new. Attestation Statement - Attestation Attestation: I, Terrance Garcia, examined this patient and my medical decision-making was reviewed with the SUPERINTENDENT AUTOMOTIVE/PA/Advanced Practice Nurse/Resident Physician. I agree with the documented findings, disposition and treatment plan as described except to the extent set forth below. 73-year-old female presents emergency Department with concerns of weakness, headache. Patient states her weakness is been worsening over the past few days. She had dialysis today for her chronic renal failure. Patient felt these symptoms prior to the dialysis. She has a headache in the emergency department which is also been present intermittently over the past week. Patient has elevation of her troponin. She is not of elevation of troponin the past however today she also has diffuse ST depressions. She does not describe having chest pain or palpitations or syncope. Patient was given aspirin in the emergency department. She is given medication for her headache. Patient will be admitted for further care and evaluation.
[2019-03-20] MEDS ORDERED: Magnesium Sulfate 1 GM in D5% in Water 100 ML IVPB ONE (16:36)
[2019-03-20] MEDS ORDERED: methylPREDNISolone 125 MG/2 ML VIAL IVP ONE (16:36)
[2019-03-20] MEDS ORDERED: Aspirin 81 MG TAB.CHEW PO ONE (16:37)
--- NOTE | 2019-03-20 17:14 | Internal Med History&Physical ---
Date of Encounter: 03/20/19 Internal Medicine - H&P: HPI History of present illness: Ms. Eng is a 73 year old female Past Med Surg Social Fam HX - Past Medical History Medical history: coronary artery disease, diabetes, dialysis, hyperlipidemia, hypertension, renal disease, other Additional medical history: hemodialysis Psychiatric history: anxiety, depression - Past Surgical History Surgical History: carotid endarterectomy, hysterectomy, orthopedic, other, thyroidectomy, other Additional surgical history: LBKA, right digits removed, CHOLO HD fistula - Social History Smoking Status: Never smoker Smokeless Tobacco Status: No Alcohol use: none Drug use: none - Family History Mother Adopted: No Family Member Ethnicity: Non- Living Status: Hx Family Cardiac Disorders: No Hx Family Respiratory Disorders: Yes Hx Family Cancer: Yes Hx Family GI Disorders: No Hx Family Endocrine Disorder: No Hx Family Neuromuscular Disorders: No Hx Family Neurologic Disorders: No Hx Family HEENT Disorders: No Hx Family Autoimmune Disorders: No Father Adopted: No Family Member Ethnicity: Non- Living Status: Hx Family Cardiac Disorders: Yes Hx Family Respiratory Disorders: Yes Hx Family Cancer: No Hx Family GI Disorders: No Hx Family Endocrine Disorder: Yes Hx Family Neuromuscular Disorders: No Hx Family Neurologic Disorders: Yes Hx Family HEENT Disorders: No Hx Family Autoimmune Disorders: No Internal Medicine - H&P: Meds Clopidogrel [Plavix] 75 mg PO DAILY tablet 10/16/16 [Rx] Multivitamin [Multivitamins] 1 cap PO DAILY 09/03/17 [History] Acetaminophen [Tylenol] 650 mg PO Q6HR PRN #30 tablet 09/10/17 [Rx] Aspirin Enteric Coated [Aspirin EC] 81 mg PO DAILY #30 tablet. 01/22/18 [Rx] Metoprolol Tartrate [Lopressor] 50 mg PO BID 02/22/18 [History] SUMAtriptan succinate [Imitrex] 25 mg PO Q2H PRN #30 tablet 04/10/18 [Rx] amLODIPine [Norvasc] 5 mg PO BID #0 04/10/18 [Rx] cloNIDine HCl [CloNIDine HCl] 0.1 mg PO BID #60 tablet 04/10/18 [Rx] Atorvastatin Calcium [Lipitor] 20 mg PO HS 08/14/18 [History] Cinacalcet [Sensipar] 30 mg PO DAILY 08/14/18 [History] Folic Acid/Vit Bcomp,C [Renal-Tulio Tablet] 0.8 mg PO DAILY 08/14/18 [History] Gabapentin [Neurontin] 100 mg PO TID 08/14/18 [History] Promethazine [Phenergan] 25 mg PO Q8H PRN 08/14/18 [History] Citalopram [CeleXA] 20 mg PO DAILY 10/18/18 [History] Allergy/AdvReac Type Severity Reaction Status Date / Time Penicillins Allergy Hives Verified 08/14/18 13:40 All Systems PM: A 10-system review of systems was performed and is negative for pertinent findings except as documented above in the HPI. - Constitutional Vitals: Temp Pulse Resp BP Pulse Ox 97.6 F 88 16 147/64 98 03/20/19 14:24 03/20/19 15:53 03/20/19 15:53 03/20/19 15:53 03/20/19 15:53 Internal Med - H&P Results - Labs CBC & Chem 7: 03/20/19 14:54 03/20/19 14:54 Labs: Short CBC 03/20/19 Range/Units 14:54 WBC 7.3 (4.3-11.1) K/mcL Hgb 11.7 (11.5-15.4) g/dL Hct 34.5 L (35.3-44.9) % Plt Count 207 (140-400) K/mcL Neutrophils # 6.8 (1.6-8.9) K/mcL BMP 03/20/19 14:54 Sodium 128 L Potassium 3.7 Chloride 88 L Carbon Dioxide 27 BUN 26 H Creatinine 3.42 H Glucose 196 H Calcium 9.5 Cardiac Enzymes 03/20/19 Range/Units 14:54 Troponin I 0.22 H* (< 0.04) ng/mL Liver Function 03/20/19 Range/Units 14:54 Total Bilirubin 0.3 (0.3-1.0) mg/dL AST 14 (13-39) Units/L ALT 4 L (7-52) Units/L Alkaline Phosphatase 68 (34-104) Units/L Albumin 4.0 (3.5-5.7) g/dL - Impressions ITS Impressions Chest X-Ray 03/20/19 14:40 IMPRESSION: 1. Mild pulmonary vascular congestion. 2. Left basilar atelectasis or infiltrate, slightly improved since prior examination. D/ / Cha Osorio MD / Cha Osorio MD Interpreting Provider: Cha Osorio MD Head CT 03/20/19 14:40 IMPRESSION: No acute intracranial abnormality. Chronic small vessel disease and remote left frontal lobe infarct. D/ / Semaj Dowd MD / Semaj Dowd MD Interpreting Provider: Semaj Dowd MD - Time Spent With Patient Total time spent is greater than 50% in coordination of care (as documented) at patient's floor/unit and/or counseling patient:
[2019-03-20] MEDS ORDERED: *HR* Promethazine 25 MG/ML VIAL IVP PRN (17:21)
[2019-03-20] MEDS ORDERED: Naloxone 0.4 MG/ML INJ IVP PRN (17:21)
[2019-03-20] MEDS ORDERED: Ondansetron ODT 4 MG TAB.RAPDIS SL PRN (17:21)
[2019-03-20] MEDS ORDERED: *HR* FentaNYL (PF) 100 MCG/2 ML VIAL IVP PRN (17:48)
[2019-03-20] MEDS ORDERED: Prochlorperazine 10 MG/2 ML VIAL IVP PRN ×2 (17:50→18:46)
--- NOTE | 2019-03-20 18:28 | Internal Med History&Physical ---
Date of Encounter: 03/20/19 Time of Encounter: 18:17 Internal Medicine - H&P: HPI Chief complaint: Headache Admitted From: Home Plans for Post Hospital Care: Home History of present illness: Ms. Eng is a 73 year old female with history of end-stage renal disease on home hemodialysis and migraines presents with intractable headache. Says a migraine has been going on for 4 days. Usually migraines are aborted with home remedies including Tylenol or Sumatriptan, howedver, has not helped this time around. Pain is in the right frontal portion of her head, which is similar to migraines in the past. Has associated aura before migraine occurs. Has been having light sensitivity and nausea/vomiting. Does note numbness on her right side as well, which is new for her and says she has not complained about this until now. In the ED, VSS. Na 128. WBC 7.3. Trop .22. Inferior lead STD. Pain control provided and patient admitted to medicine. Past Med Surg Social Fam HX - Past Medical History Medical history: coronary artery disease, diabetes, dialysis, hyperlipidemia, hypertension, renal disease, other Additional medical history: hemodialysis Psychiatric history: anxiety, depression - Past Surgical History Surgical History: carotid endarterectomy, hysterectomy, orthopedic, other, thyroidectomy, other Additional surgical history: LBKA, right digits removed, CHOLO HD fistula - Social History Smoking Status: Never smoker Smokeless Tobacco Status: No Alcohol use: none Drug use: none - Family History Mother Adopted: No Family Member Ethnicity: Non- Living Status: Hx Family Cardiac Disorders: No Hx Family Respiratory Disorders: Yes Hx Family Cancer: Yes Hx Family GI Disorders: No Hx Family Endocrine Disorder: No Hx Family Neuromuscular Disorders: No Hx Family Neurologic Disorders: No Hx Family HEENT Disorders: No Hx Family Autoimmune Disorders: No Father Adopted: No Family Member Ethnicity: Non- Living Status: Hx Family Cardiac Disorders: Yes Hx Family Respiratory Disorders: Yes Hx Family Cancer: No Hx Family GI Disorders: No Hx Family Endocrine Disorder: Yes Hx Family Neuromuscular Disorders: No Hx Family Neurologic Disorders: Yes Hx Family HEENT Disorders: No Hx Family Autoimmune Disorders: No Internal Medicine - H&P: Meds Clopidogrel [Plavix] 75 mg PO DAILY tablet 10/16/16 [Rx] Multivitamin [Multivitamins] 1 cap PO DAILY 09/03/17 [History] Acetaminophen [Tylenol] 650 mg PO Q6HR PRN #30 tablet 09/10/17 [Rx] Aspirin Enteric Coated [Aspirin EC] 81 mg PO DAILY #30 tablet. 01/22/18 [Rx] Metoprolol Tartrate [Lopressor] 50 mg PO BID 02/22/18 [History] SUMAtriptan succinate [Imitrex] 25 mg PO Q2H PRN #30 tablet 04/10/18 [Rx] amLODIPine [Norvasc] 5 mg PO BID #0 04/10/18 [Rx] cloNIDine HCl [CloNIDine HCl] 0.1 mg PO BID #60 tablet 04/10/18 [Rx] Atorvastatin Calcium [Lipitor] 20 mg PO HS 08/14/18 [History] Cinacalcet [Sensipar] 30 mg PO DAILY 08/14/18 [History] Folic Acid/Vit Bcomp,C [Renal-Tulio Tablet] 0.8 mg PO DAILY 08/14/18 [History] Gabapentin [Neurontin] 100 mg PO TID 08/14/18 [History] Promethazine [Phenergan] 25 mg PO Q8H PRN 08/14/18 [History] Citalopram [CeleXA] 20 mg PO DAILY 10/18/18 [History] Allergy/AdvReac Type Severity Reaction Status Date / Time Penicillins Allergy Hives Verified 08/14/18 13:40 All Systems PM: A 10-system review of systems was performed and is negative for pertinent find ings except as documented above in the HPI. Review of systems: General: Fevers / Chills / Weight loss / Night sweats Eyes: Blurry Vision / Change in Vision HENT: Ear Pain / Ear Drainage / Rhinorrhea / Throat Pain / Lymphadenopathy Cardiovascular: Chest Pain / Palpatations / Orthopnea / PANDA / Weight gain Lungs: Dyspnea / Wheezing / Cough / Sputum production / Pleurisy Abdomen: Abdomen pain / Abdominal distention / Nausea / Vomiting / Diarrhea / Const : Dysuria / Urinary Frequency / Urinary Urgency / Hematuria Extremities: LE edema / Ext pain / Ext erythema Skin: Rashes / Abrasions / Contusions Psych: Hallucinations / Anxiety / Depression Neuro: Weakness / Numbness / Tingling / Facial Droop / Dysphagia / ARRIAGA - Constitutional Vitals: Temp Pulse Resp BP Pulse Ox 97.6 F 92 16 144/65 97 03/20/19 14:24 03/20/19 18:04 03/20/19 18:04 03/20/19 18:04 03/20/19 18:04 Exam: General: Ill-appearing and in acute pain HEENT: No erythema of posterior pharynx. No exudates. Lymphatics: No mandibular or cervical lymphadenopathy Cardiovascular: RRR. No murmurs. No chest wall tenderness. Lungs: Clear to auscelltation bilaterally. Regular chest rise. Abdomen: Non-tender. No rebound or gaurding. Nl bowel sounds. Extremities: No edema. 2+ pulses radial and pedal pulses Skin: No rahses, abrasions, or contusions. Nl cap refill. Psych: Nl attention. A&Ox3 Neuro: Exam limited by patient's participation. knit goods cutter hand II-XII intact. 5/5 strength. Sensation to light touch decreased over entire L side. No PD. FNF and ROM intact. Internal Med - H&P Results - Labs CBC & Chem 7: 03/20/19 14:54 03/20/19 14:54 Labs: Short CBC 03/20/19 Range/Units 14:54 WBC 7.3 (4.3-11.1) K/mcL Hgb 11.7 (11.5-15.4) g/dL Hct 34.5 L (35.3-44.9) % Plt Count 207 (140-400) K/mcL Neutrophils # 6.8 (1.6-8.9) K/mcL BMP 03/20/19 14:54 Sodium 128 L Potassium 3.7 Chloride 88 L Carbon Dioxide 27 BUN 26 H Creatinine 3.42 H Glucose 196 H Calcium 9.5 Cardiac Enzymes 03/20/19 Range/Units 14:54 Troponin I 0.22 H* (< 0.04) ng/mL Liver Function 03/20/19 Range/Units 14:54 Total Bilirubin 0.3 (0.3-1.0) mg/dL AST 14 (13-39) Units/L ALT 4 L (7-52) Units/L Alkaline Phosphatase 68 (34-104) Units/L Albumin 4.0 (3.5-5.7) g/dL - Impressions ITS Impressions Chest X-Ray 03/20/19 14:40 IMPRESSION: 1. Mild pulmonary vascular congestion. 2. Left basilar atelectasis or infiltrate, slightly improved since prior examination. D/ / Cha Osorio MD / Cha Osorio MD Interpreting Provider: Cha Osorio MD Head CT 03/20/19 14:40 IMPRESSION: No acute intracranial abnormality. Chronic small vessel disease and remote left frontal lobe infarct. D/ / Semaj Dowd MD / Semaj Dowd MD Interpreting Provider: Semaj Dowd MD - Assessment and Plan (1) Status migrainosus Current Visit: Yes Status: Acute Assessment and plan: Patient with history of end-stage renal disease and migraines as well as several stroke risk factors presents with intractable headache over the last 4 days in the setting of stable vitals, decreased sensation to light touch on the right side on physical exam, mild troponin elevation, and normal CT head. -Likely intractable headache related to underlying migraine history given in the same spot as her normal migraines -Low concern for subarachnoid hemorrhage at this time given CT without evidence of this: To completely rule this out would need LP, however, on dual antiplatelets. Risks outweigh benefits. Will do further head imaging -Low concern for stroke given headache usually not present during stroke, however, is having right-sided numbness so should rule this out -No evidence of increased intracranial pressure on CT PLAN: - S/p 324mg ASA. Continue home ASA 81mg and Plavix 75mg - CTA head/neck stroke set - MRI tomorrow - Pain control: Fentanyl 50mcg q1 prn Compazine 10mg q6 prn Scheduled Tylenol Will avoid NSAIDs given hx of GIB (2) End stage renal disease Current Visit: Yes Status: Chronic Assessment and plan: On home 4-day per week dialysis. Hx of calciphylaxis. - Consult to Nephrology (3) Essential hypertension Current Visit: No Status: Chronic Assessment and plan: Continue home medications once verified (4) Elevated troponin Current Visit: Yes Status: Acute Assessment and plan: Hx of multivessel CAD (last [facility] 2015, no stents). Hx of PAD s/p CEA on ASA and Plavix. Trop elevation and mild STD in setting of HD and no cp. - Trend trop - Continue ASA and Plavix - Time Spent With Patient Total time spent is greater than 50% in coordination of care (as documented) at patient's floor/unit and/or counseling patient:
[2019-03-20] MEDS ORDERED: Isovue-370 500 ML BOTTLE IVP ONE (18:29)
[2019-03-20] MEDS ORDERED: levoFLOXacin 500 MG TABLET PO SCH (22:30)
[2019-03-21] MEDS: SUMAtriptan succinate 25 MG TABLET PO PRN (00:33)
[2019-03-21 02:45] LABS: Hematocrit 28.8 % (35.3-44.9); Hemoglobin 9.8 g/dL (11.5-15.4); Immature Granulocytes % 0.9 % (0-4); Lymphocytes # 0.2 K/mcL (0.6-4.6); Lymphocytes % 4.2 %; Mean Corpuscular Hemoglobin 35.4 pg (28.0-33.3); Mean Platelet Volume 9.4 fL (9.4-12.4); Monocytes # 0.1 K/mcL (0.0-1.3); Monocytes % 3.1 %; Neutrophils # 3.9 K/mcL (1.6-8.9); Platelet Count 227 K/mcL (140-400); Red Blood Count 2.77 M/mcL (3.82-4.97); Red Cell Distribution Width 16.3 % (11.5-14.5); Segmented Neutrophils % 91.8 %; White Blood Count 4.2 K/mcL (4.3-11.1)
[2019-03-21 03:05] LABS: Calcium 8.9 mg/dL (8.6-10.3); Potassium 4.6 mEq/L (3.5-5.1)
[2019-03-21 03:16] LABS: Platelet Estimate Normal (Normal)
[2019-03-21 03:49] LABS: Troponin I 0.17 ng/mL (< 0.04)
[2019-03-21] MEDS: *HR* Heparin 5,000 UNIT/ML VIAL SQ SCH ×2 (05:10→18:36)
[2019-03-21 08:36] LABS: Hepatitis B Surface Antibody < 3.10 mIU/mL
[2019-03-21 08:47] LABS: Hepatitis B Surface Antigen Nonreactive (Nonreactive)
--- NOTE | 2019-03-21 12:19 | Nephrology Consult Note ---
Date of Encounter: 03/21/19 Time of Encounter: 12:17 Assessment and Plan (1) ESRD (end stage renal disease) on dialysis Current Visit: Yes Status: Acute Current regimen is Sunday, Sunday, , Sunday with home hemo. Plan for HD possibly tomorrow. Renal diet Renal vitamins Strict I/O Avoid nephrotoxins and renal dose all medications. Will order additional UF or HD as needed. (2) Status migrainosus Current Visit: Yes Status: Acute Per primary. (3) Anemia Current Visit: Yes Status: Acute Goal Hgb is 10-11. Hgb is 9.8, stable. Qualifiers: Qualified Code(s): D64.9 - Anemia, unspecified History of Present Illness - Reason for Consult Consult date: 03/21/19 end stage renal disease Requesting physician: Rolando Hernandez - Chief Complaint migraine - History of Present Illness Ms. Eng is a 73 year old female who presented to ED for migraine that started yesterday. PMH: CAD, NSTEMI, Aortic Stenosis, migraines, and ESRD. Current regimen is home hemodialysis on Sunday, Sunday, , Sunday for approximately 2 hours and 10 minutes. Her last HD was yesterday without complication however she did have the headache. She described the pain as "sharp" and on the right side. Denies nausea, vomiting, diarrhea. Denies chest pain or shortness of breath. [facility] were consulted for management of HD. No need for HD today, pt does not feel like she could handle it with headache. She lives at home with . Denies tobacco, etoh, or illicit drug use. No FH of CKD or HD. She is unsure how long she has been on HD. Past Med Surg Social Fam HX - Past Medical History Medical history: cancer, coronary artery disease, diabetes, dialysis, hypertension, renal disease, other Additional medical history: hemodialysis Psychiatric history: anxiety, depression - Past Surgical History Surgical History: carotid endarterectomy, hysterectomy, orthopedic, other, thyroidectomy, other Additional surgical history: LBKA, right digits removed, CHOLO HD fistula - Social History Smoking Status: Never smoker Smokeless Tobacco Status: No Alcohol use: none Drug use: none - Family History Mother Adopted: No Family Member Ethnicity: Non- Living Status: Hx Family Cardiac Disorders: No Hx Family Respiratory Disorders: Yes Hx Family Cancer: Yes Hx Family GI Disorders: No Hx Family Endocrine Disorder: No Hx Family Neuromuscular Disorders: No Hx Family Neurologic Disorders: No Hx Family HEENT Disorders: No Hx Family Autoimmune Disorders: No Father Adopted: No Family Member Ethnicity: Non- Living Status: Hx Family Cardiac Disorders: Yes Hx Family Respiratory Disorders: Yes Hx Family Cancer: No Hx Family GI Disorders: No Hx Family Endocrine Disorder: Yes Hx Family Neuromuscular Disorders: No Hx Family Neurologic Disorders: Yes Hx Family HEENT Disorders: No Hx Family Autoimmune Disorders: No Medications and Allergies Clopidogrel [Plavix] 75 mg PO DAILY tablet 10/16/16 [Rx] Multivitamin [Multivitamins] 1 cap PO DAILY 09/03/17 [History] Acetaminophen [Tylenol] 650 mg PO Q6HR PRN #30 tablet 09/10/17 [Rx] Aspirin Enteric Coated [Aspirin EC] 81 mg PO DAILY #30 tablet. 01/22/18 [Rx] Metoprolol Tartrate [Lopressor] 12.5 mg PO BID 02/22/18 [History] SUMAtriptan succinate [Imitrex] 25 mg PO Q2H PRN #30 tablet 04/10/18 [Rx] amLODIPine [Norvasc] 5 mg PO BID #0 04/10/18 [Rx] cloNIDine HCl [CloNIDine HCl] 0.1 mg PO BID #60 tablet 04/10/18 [Rx] Atorvastatin Calcium [Lipitor] 20 mg PO HS 08/14/18 [History] Cinacalcet [Sensipar] 30 mg PO DAILY 08/14/18 [History] Folic Acid/Vit Bcomp,C [Renal-Tulio Tablet] 0.8 mg PO DAILY 08/14/18 [History] Gabapentin [Neurontin] 100 mg PO TID 08/14/18 [History] Promethazine [Phenergan] 25 mg PO Q8H PRN 08/14/18 [History] Citalopram [CeleXA] 20 mg PO DAILY 10/18/18 [History] Epogen 03/20/19 [History] Fioricet 03/20/19 [History] Levofloxacin 500 mg PO Q48H 03/20/19 [History] predniSONE 20 mg PO DAILY 03/20/19 [History] Allergy/AdvReac Type Severity Reaction Status Date / Time Penicillins Allergy Hives Verified 08/14/18 13:40 Review of Systems All Systems review (narrative): The remainder of the systems are negative. Constitutional: fatigue, no chills, no fever(s) Nose, mouth and throat: no dizziness Cardiovascular: no chest pain, no dyspnea Respiratory: no cough, no dyspnea, no hemoptysis Gastrointestinal: no change in bowel habits, no diarrhea, no nausea, no vomiting Neurological: no loss of vision Exam - Vital Signs Vital signs: Initial Vital Signs Temp Pulse Resp BP Pulse Ox 97.6 F 87 16 144/61 99 03/20/19 14:24 03/20/19 14:24 03/20/19 14:24 03/20/19 14:24 03/20/19 14:24 Vital Signs - Last 8 Hours Temp Pulse Resp BP Pulse Ox 03/21/19 11:55 97.5 F L 81 19 101/49 94 03/21/19 07:44 98.4 F 84 19 133/80 95 Intake and Output 03/20/19 03/21/19 03/21/19 23:59 07:59 15:59 Intake Total 102 / 102 240 / 240 Balance 102 / 102 240 / 240 Intake: IV Fluids 102 / 102 Magnesium Sulfate 1 GM In 0.9 % 102 / 102 Sodium Chloride 100 ML @ 100 mls/hr IVPB ONCE ONE Rx#: [id number] Oral 240 / 240 Other: Meal Breakfast Percent of Meal Consumed 75% Weight 71.5 kg - General Appearance General appearance: well-developed, well-nourished EENT: ATNC, hearing intact, vision intact Neck: supple Respiratory: clear Cardiology: no edema, normal S1, normal S2 - Dialysis Access Dialysis Vascular Access: Arteriovenous Fistula thrill: Yes bruit: Yes Gastrointestinal: normoactive bowel sounds, no tenderness, no guarding Integumentary: no rash, warm and dry Neurologic: alert and oriented x3 Musculoskeletal: no deformities, no erythema Psychiatric: mood/affect appropriate, cooperative Results - Lab Results 03/21/19 01:49 03/21/19 01:49 Most recent lab results 03/21/19 01:49 Calcium 8.9 Consult Discharge Plan - Plan Referrals: Rudi Avila MD [Primary Care Provider] -
[2019-03-21] MEDS: *HR* OxyCODONE Immed Rel 5 MG TABLET PO PRN ×2 (12:42→21:58)
[2019-03-21] MEDS: Divalproex (24 HR) 500 MG TABLET PO SCH ×2 (12:42→22:01)
--- NOTE | 2019-03-21 13:11 | Internal Med Progress Note ---
Hospitalist Progress Note - Encounter Date of Encounter: 03/21/19 Time of Encounter: 13:08 - Subjective Interval History: Patient's headache is improved today. Says that she has headaches every day and has recently been prescribed amitriptyline but has only taken one dose of this. Still having right-sided numbness but improved from yesterday. - Exam Vitals: Temp Pulse Resp BP Pulse Ox 97.5 F L 81 19 101/49 94 03/21/19 11:55 03/21/19 11:55 03/21/19 11:55 03/21/19 11:55 03/21/19 11:55 Exam: General: Appears much improved today and not in pain HEENT: No erythema of posterior pharynx. No exudates. Lymphatics: No mandibular or cervical lymphadenopathy Cardiovascular: RRR. No murmurs. No chest wall tenderness. Lungs: Clear to auscelltation bilaterally. Regular chest rise. Abdomen: Non-tender. No rebound or gaurding. Nl bowel sounds. Extremities: No edema. 2+ pulses radial and pedal pulses Skin: No rahses, abrasions, or contusions. Nl cap refill. Psych: Nl attention. A&Ox3 Neuro: acid bleacher II-XII intact. 5/5 strength. Sensation to light touch decreased over entire L side. No PD. FNF and ROM intact. - Assessment and Plan (1) Status migrainosus Current Visit: Yes Status: Acute Assessment and Plan: Patient with history of end-stage renal disease and migraines as well as several stroke risk factors presents with intractable headache over the last 4 days in the setting of stable vitals, decreased sensation to light touch on the right side on physical exam, mild troponin elevation, and normal CT head. -Likely intractable headache related to underlying migraine history given in the same spot as her normal migraines -Low concern for subarachnoid hemorrhage at this time given CT without evidence of this: To completely rule this out would need LP, however, on dual antiplatelets. Risks outweigh benefits. Will do further head imaging -Low concern for stroke given headache usually not present during stroke, however, is having right-sided numbness so should rule this out CT and CTA without evidence of acute pathology To having numbness. We will go for MRI today -No evidence of increased intracranial pressure on CT -Given daily headaches, will start patient on migraine medication. PLAN: - S/p 324mg ASA. Continue home ASA 81mg and Plavix 75mg - MRI head today - Pain control: Compazine 10mg q6 prn Scheduled Tylenol Oxycodone 5mg for refractory ARRIAGA Will avoid NSAIDs given hx of GIB Start Depakote 500mg today for ARRIAGA prevention (2) End stage renal disease Current Visit: Yes Status: Chronic Assessment and Plan: On home 4-day per week dialysis. Hx of calciphylaxis. - Consult to Nephrology - plan to do HD tomorrow if patient stays (3) Essential hypertension Current Visit: No Status: Chronic Assessment and Plan: Says her blood pressures below normal and metoprolol recently discontinued. BP normal even with holding amlodipine. - Hold antihypertensives for now (4) Elevated troponin Current Visit: Yes Status: Acute Assessment and Plan: Hx of multivessel CAD (last [facility] 2015, no stents). Hx of PAD s/p CEA on ASA and Plavix. Trop elevation and mild STD in setting of HD and no cp. - Trop peaked at .22 - Continue ASA and Plavix DVT Prophylaxis: heparin Internal Medicine: Result - Labs CBC & Chem 7: 03/21/19 01:49 03/21/19 01:49 Labs: Short CBC 03/20/19 03/21/19 Range/Units 14:54 01:49 WBC 7.3 4.2 L (4.3-11.1) K/mcL Hgb 11.7 9.8 L D (11.5-15.4) g/dL Hct 34.5 L 28.8 L (35.3-44.9) % Plt Count 207 227 (140-400) K/mcL Neutrophils # 6.8 3.9 (1.6-8.9) K/mcL BMP 03/20/19 03/21/19 14:54 01:49 Sodium 128 L 126 L Potassium 3.7 4.6 Chloride 88 L 89 L Carbon Dioxide 27 25 BUN 26 H 38 H Creatinine 3.42 H 4.61 H Glucose 196 H 260 H Calcium 9.5 8.9 Cardiac Enzymes 03/20/19 03/20/19 03/21/19 Range/Units 14:54 18:52 01:49 Troponin I 0.22 H* 0.17 H* 0.17 H* (< 0.04) ng/mL 03/21/19 Range/Units 07:56 Troponin I 0.19 H* (< 0.04) ng/mL Liver Function 03/20/19 Range/Units 14:54 Total Bilirubin 0.3 (0.3-1.0) mg/dL AST 14 (13-39) Units/L ALT 4 L (7-52) Units/L Alkaline Phosphatase 68 (34-104) Units/L Albumin 4.0 (3.5-5.7) g/dL - Impressions Impressions Chest X-Ray 03/20/19 14:40 IMPRESSION: 1. Mild pulmonary vascular congestion. 2. Left basilar atelectasis or infiltrate, slightly improved since prior examination. D/ / Cha Osorio MD / Cha Osorio MD Interpreting Provider: Cha Osorio MD Head CT 03/20/19 14:40 IMPRESSION: No acute intracranial abnormality. Chronic small vessel disease and remote left frontal lobe infarct. D/ / Semaj Dowd MD / Semaj Dowd MD Interpreting Provider: Semaj Dowd MD Head CTA 03/20/19 18:29 IMPRESSION: Atherosclerotic disease at the bilateral carotid bifurcation, right greater than left. Approximately 60% stenosis at the right carotid bifurcation may be overestimation due to extensive streak from vessel wall calcium. This should be further correlated with a carotid ultrasound. No flow-limiting stenosis involving the left carotid bifurcation. No flow-limiting stenosis involving the vertebral arteries. No high-grade stenosis or focal occlusion involving the intracranial vasculature. No evidence of intracranial aneurysm. No evidence of acute dissection. Trace bilateral pleural effusions with suggestion of interstitial pulmonary edema. Cardiomegaly. No pericardial effusion. No CT evidence of acute intracranial abnormalities. D/ / 03/20/2019 20:21:17 Armond Culp MD / abby Interpreting Provider: Armond Culp MD Neck CTA 03/20/19 18:29 IMPRESSION: Atherosclerotic disease at the bilateral carotid bifurcation, right greater than left. Approximately 60% stenosis at the right carotid bifurcation may be overestimation due to extensive streak from vessel wall calcium. This should be further correlated with a carotid ultrasound. No flow-limiting stenosis involving the left carotid bifurcation. No flow-limiting stenosis involving the vertebral arteries. No high-grade stenosis or focal occlusion involving the intracranial vasculature. No evidence of intracranial aneurysm. No evidence of acute dissection. Trace bilateral pleural effusions with suggestion of interstitial pulmonary edema. Cardiomegaly. No pericardial effusion. No CT evidence of acute intracranial abnormalities. D/ / 03/20/2019 20:21:17 Armond Culp MD / abby Interpreting Provider: Armond Culp MD Consult Discharge Plan - Plan Referrals: Rudi Avila MD [Primary Care Provider] -
[2019-03-21] MEDS ORDERED: Prochlorperazine 10 MG/2 ML VIAL IVP ONE (16:26)
[2019-03-21] MEDS ORDERED: *HR* FentaNYL (PF) 100 MCG/2 ML VIAL IVP ONE (16:26)
--- NOTE | 2019-03-21 16:50 | Neurology - Consult Note ---
Date of Encounter: 03/21/19 Time of Encounter: 16:47 Assessment and Plan (1) Headache Current Visit: No Status: Chronic Patient has prior history of migraines but per history this has been in remission for few years and she used to take fioricet from her PCP which usually works. Now she seems to have a different type of headache, more resembling right occipiral neuralgia since the pain radiate to the right eye and there is significant allodynia to the right skull and there is also tenderspot to the touch of right occipital nerve exiting point. This would be best treated with an occipital nerve blockade procedure This type of headache tends not to respond to pharmacological intervention. I see no evidence of [employer] infection. She has base occipital headache and tenderspot to the right occipital exiting point but she does not have nuchal rigidity. So i do not feel that she needs spinal tap. Agree with the use of Depakote. She may benefit from the use of fioricet on prn basis. Treatment is largely empirical at this time. Please continue medical and supportive care Qualifiers: Headache type: unspecified Headache chronicity pattern: unspecified pattern Intractability: intractable Qualified Code(s): R51 - Headache (2) CVA (cerebral vascular accident) Current Visit: Yes Status: Acute The patient has acute cerebral infarct adjacent to the occipital horn of the left lateral ventricle. I reviewed the MRI of brain and i saw DW signal changes however, there is no definitive ADC map correlates and the area looks iso-dense therefore this could be related to subacute event. This is likely secondary to lacunar infarct or embolic phenomenon therefore would like to complete echocardiogram. Would keep on Aspirin and plaivx as CVS secondary preventative therapy. Continue statin therapy. Patients with posterior circulation infarct can be associated with headaches however the location of the current headaches are not compatible with left side stroke. They may not be related. Qualifiers: CVA mechanism: unspecified Qualified Code(s): I63.9 - Cerebral infarction, unspecified History of Present Illness Chief complaint: headache and CVA HPI: Ms. Eng is a 73 year old female with PMH significant fo ESRD, on home hemodi alysis, history of migraines who presented to ER with persistent headaches. Patient is interviewed in the presence of her and daughter. Patient has migraines in the past but it went away for a while. Over the last few weeks she has been experiencing rather frequent headaches, located around and behind her right eye, referring to the base of the skull to the right side, rather debilitating. The patient apparently call the PCP few weeks regarding the headaches and she was given Fiorinal and also recommended fluid management since the patient recently started home hemodialysis, 5 days a week schedule. Over the last few days, specifically, since last Sunday her headaches became unmanage able. notices since the home hemodialgysis she tends to have some more headaches but he could not find a specific pattern. The headaches do not appear to be associated with nausea or vomiting. It only involves the right side. Takes tyelonol and fioricet and those did not seem to work. MRI of brain was completed and reported acute infarct at the left occipital subcortical region. However, there is not clear ADC map correlates. Clinically, patient reports no other neurological deficits besides the headaches. No focal weakness reported. Past Med Surg Social Fam HX - Past Medical History Medical history: cancer, coronary artery disease, diabetes, dialysis, hypertension, renal disease, other Additional medical history: hemodialysis Psychiatric history: anxiety, depression - Past Surgical History Surgical History: carotid endarterectomy, hysterectomy, orthopedic, other, thyroidectomy, other Additional surgical history: LBKA, right digits removed, CHOLO HD fistula - Social History Smoking Status: Never smoker Smokeless Tobacco Status: No Alcohol use: none Drug use: none - Family History Mother Adopted: No Family Member Ethnicity: Non- Living Status: Hx Family Cardiac Disorders: No Hx Family Respiratory Disorders: Yes Hx Family Cancer: Yes Hx Family GI Disorders: No Hx Family Endocrine Disorder: No Hx Family Neuromuscular Disorders: No Hx Family Neurologic Disorders: No Hx Family HEENT Disorders: No Hx Family Autoimmune Disorders: No Father Adopted: No Family Member Ethnicity: Non- Living Status: Hx Family Cardiac Disorders: Yes Hx Family Respiratory Disorders: Yes Hx Family Cancer: No Hx Family GI Disorders: No Hx Family Endocrine Disorder: Yes Hx Family Neuromuscular Disorders: No Hx Family Neurologic Disorders: Yes Hx Family HEENT Disorders: No Hx Family Autoimmune Disorders: No Medications and Allergies Clopidogrel [Plavix] 75 mg PO DAILY tablet 10/16/16 [Rx] Multivitamin [Multivitamins] 1 cap PO DAILY 09/03/17 [History] Acetaminophen [Tylenol] 650 mg PO Q6HR PRN #30 tablet 09/10/17 [Rx] Aspirin Enteric Coated [Aspirin EC] 81 mg PO DAILY #30 tablet. 01/22/18 [Rx] Metoprolol Tartrate [Lopressor] 12.5 mg PO BID 02/22/18 [History] SUMAtriptan succinate [Imitrex] 25 mg PO Q2H PRN #30 tablet 04/10/18 [Rx] amLODIPine [Norvasc] 5 mg PO BID #0 04/10/18 [Rx] cloNIDine HCl [CloNIDine HCl] 0.1 mg PO BID #60 tablet 04/10/18 [Rx] Atorvastatin Calcium [Lipitor] 20 mg PO HS 08/14/18 [History] Cinacalcet [Sensipar] 30 mg PO DAILY 08/14/18 [History] Folic Acid/Vit Bcomp,C [Renal-Tulio Tablet] 0.8 mg PO DAILY 08/14/18 [History] Gabapentin [Neurontin] 100 mg PO TID 08/14/18 [History] Promethazine [Phenergan] 25 mg PO Q8H PRN 08/14/18 [History] Citalopram [CeleXA] 20 mg PO DAILY 10/18/18 [History] Epogen 03/20/19 [History] Fioricet 03/20/19 [History] Levofloxacin 500 mg PO Q48H 03/20/19 [History] predniSONE 20 mg PO DAILY 03/20/19 [History] Allergy/AdvReac Type Severity Reaction Status Date / Time Penicillins Allergy Hives Verified 08/14/18 13:40 All Systems: The remainder of the systems were reviewed and are negative Physical Examination - Vital Signs Vital Signs: Initial Vital Signs Temp Pulse Resp BP Pulse Ox 97.6 F 87 16 144/61 99 03/20/19 14:24 03/20/19 14:24 03/20/19 14:24 03/20/19 14:24 03/20/19 14:24 Results - Laboratory Findings CBC and BMP: 03/21/19 01:49 03/21/19 01:49 Abnormal lab findings: Abnormal lab results WBC 4.2 K/mcL (4.3-11.1) L 03/21/19 01:49 RBC 2.77 M/mcL (3.82-4.97) L 03/21/19 01:49 Hgb 9.8 g/dL (11.5-15.4) L D 03/21/19 01:49 Hct 28.8 % (35.3-44.9) L 03/21/19 01:49 MCV 104.0 fL (83.0-100.0) H 03/21/19 01:49 MCH 35.4 pg (28.0-33.3) H 03/21/19 01:49 RDW 16.3 % (11.5-14.5) H 03/21/19 01:49 MPV 9.2 fL (9.4-12.4) L 03/20/19 14:54 Lymphocytes # 0.2 K/mcL (0.6-4.6) L 03/21/19 01:49 Sodium 126 mEq/L (136-145) L 03/21/19 01:49 Chloride 89 mEq/L (98-107) L 03/21/19 01:49 BUN 38 mg/dL (8-23) H 03/21/19 01:49 Creatinine 4.61 mg/dL (0.60-1.20) H 03/21/19 01:49 Est GFR ( Amer) 11 (> 60) L 03/21/19 01:49 Est GFR (Non-Af Amer) 9 (> 60) L 03/21/19 01:49 Glucose 260 mg/dL (70-105) H 03/21/19 01:49 Calculated Osmolality 276 (280-300) L 03/20/19 14:54 ALT 4 Units/L (7-52) L 03/20/19 14:54 Troponin I 0.20 ng/mL (< 0.04) H* 03/21/19 13:45 Hep Bs Antibody < 3.10 mIU/mL (10.00-) L 03/21/19 07:56 - Diagnostic Findings Additional findings: EXAMINATION: CTA OF THE NECK; CTA OF THE HEAD WITHOUT AND WITH CONTRAST 03/20/2019 7:51 pm; 03/20/2019 7:52 pm TECHNIQUE: CTA of the neck was performed with the administration of intravenous contrast. Multiplanar reformatted images are provided for review. MIP images are provided for review. Stenosis of the internal carotid arteries measured using NASCET criteria. Dose modulation, iterative reconstruction, and/or weight based adjustment of the mA/kV was utilized to reduce the radiation dose to as low as reasonably achievable.; CTA of the head/brain was performed without and with the administration of intravenous contrast. Multiplanar reformatted images are provided for review. MIP images are provided for review. Dose modulation, iterative reconstruction, and/or weight based adjustment of the mA/kV was utilized to reduce the radiation dose to as low as reasonably achievable. Noncontrast CT of the head with reconstructed 2-D images are also provided for review. COMPARISON: None HISTORY: ORDERING SYSTEM PROVIDED HISTORY: Right-sided numbness, concern for stroke. 75 mL of Isovue 370; ORDERING SYSTEM PROVIDED HISTORY: Right-sided numbness, concern for stroke. FINDINGS: CT HEAD: BRAIN/VENTRICLES: No acute intracranial hemorrhage or extraaxial fluid collection. Madrigal-white differentiation is maintained. No evidence of mass, mass effect or midline shift. No evidence of hydrocephalus. Nonspecific white matter hypodensities are most often attributed to chronic small vessel ischemic white matter disease. Chronic appearing lacunar infarct within left basal ganglia. Moderate prominence of ventricles and sulci is compatible with diffuse cerebral volume loss. ORBITS: The visualized portion of the orbits demonstrate no acute abnormality. SINUSES: The visualized paranasal sinuses and mastoid air cells demonstrate no acute abnormality. SOFT TISSUES/SKULL: No acute abnormality of the visualized skull or soft tissues. CTA NECK: AORTIC ARCH/ARCH VESSELS: No significant stenosis is seen of the innominate artery or subclavian arteries. CAROTID ARTERIES: The common carotid arteries are normal in appearance without evidence of a flow limiting stenosis. Atherosclerotic disease involving the bilateral carotid bifurcation. This is greater on the right. There is approximately 60% stenosis involving the right carotid bifurcation, however, this may represent overestimation due to extensive vessel wall calcium. No flow-limiting stenosis by NASCET criteria at the left carotid bifurcation. No dissection or arterial injury is seen. VERTEBRAL ARTERIES: Atherosclerotic disease involving the bilateral vertebral arteries. No flow-limiting stenosis. No evidence of vertebral dissection. SOFT TISSUES: Trace bilateral pleural effusions. Interlobular septal thickening with ground-glass pulmonary opacities may represent early pulmonary interstitial edema. Nasopharynx, oral cavity, oropharynx, hypopharynx, and laryngeal structures are unremarkable. Parotid glands, and submandibular glands are unremarkable. Thyroid gland appears unremarkable. No evidence of significant cervical, or supraclavicular lymphadenopathy. No evidence of axillary lymphadenopathy. No acute soft tissue findings within the neck. BONES: Multilevel degenerative changes of the cervical spine. No convincing evidence of acute osseous abnormalities. CTA HEAD: ANTERIOR CIRCULATION: Atherosclerotic disease involving the intracranial and internal carotid arteries. Mild stenosis involving the clinoid segment of the left internal carotid arteries. No flow-limiting stenosis involving the intracranial or internal carotid arteries. The anterior cerebral and middle cerebral arteries demonstrate no focal stenosis. POSTERIOR CIRCULATION: The posterior cerebral arteries demonstrate no focal stenosis. The vertebral and basilar arteries appear unremarkable. CT/CT angio neck IMPRESSION: Atherosclerotic disease at the bilateral carotid bifurcation, right greater than left. Approximately 60% stenosis at the right carotid bifurcation may be overestimation due to extensive streak from vessel wall calcium. This should be further correlated with a carotid ultrasound. No flow-limiting stenosis involving the left carotid bifurcation. No flow-limiting stenosis involving the vertebral arteries. No high-grade stenosis or focal occlusion involving the intracranial vasculature. No evidence of intracranial aneurysm. No evidence of acute dissection. Trace bilateral pleural effusions with suggestion of interstitial pulmonary edema. Cardiomegaly. No pericardial effusion. No CT evidence of acute intracranial abnormalities. D/ / 03/20/2019 20:21:17 [facility] Culp MD / [facility] Inter[facility]ting Provider: Armond Culp MD MRI OF THE BRAIN WITHOUT CONTRAST 03/21/2019 1:21 pm TECHNIQUE: Multiplanar multisequence MRI of the brain was performed without the administration of intravenous contrast. COMPARISON: 04/09/[address] brain on 03/20/2019. HISTORY: ORDERING SYSTEM PROVIDED HISTORY: concern for stroke FINDINGS: INTRACRANIAL STRUCTURES/VENTRICLES: Small area of restricted diffusion adjacent to the occipital horn of the left lateral ventricle. Suggestion of a previous left basal ganglia hemorrhage, with encephalomalacia and hemosiderin deposit within the left basal ganglia. There are chronic appearing bilateral basal ganglia infarcts. Chronic appearing small cerebellar infarcts. No evidence of sellar or suprasellar mass. Chronic small vessel ischemic white matter disease and diffuse cerebral volume loss. No evidence of midline shift. The basal cisterns are patent. ORBITS: The visualized portion of the orbits demonstrate no acute abnormality. SINUSES: The visualized paranasal sinuses and mastoid air cells are well aerated. BONES/SOFT TISSUES: No significant abnormalities. MR/MR head/brain wo con IMPRESSION: 1. Small area of acute infarct adjacent to the occipital horn of the left lateral ventricle. No evidence of associated intracranial hemorrhage. 2. Chronic lacunar infarcts within bilateral basal ganglia, with areas of hemosiderin deposits. Chronic lacunar infarcts within bilateral cerebellum. 3. Chronic small vessel ischemic white matter disease and diffuse cerebral volume loss. The findings were sent to the Radiology Results Communication Center at 2:10 pm on 03/21/2019to be communicated to a licensed caregiver. D/ / Armond Culp MD / Armond Culp MD Interpreting Provider: Armond Culp MD Consult Discharge Plan - Plan Referrals: Rudi Avila MD [Primary Care Provider] -
[2019-03-22] MEDS: SUMAtriptan succinate 25 MG TABLET PO PRN ×3 (03:12→08:31)
[2019-03-22] MEDS: *HR* OxyCODONE Immed Rel 5 MG TABLET PO PRN ×2 (04:24→18:52)
[2019-03-22] MEDS: *HR* Heparin 5,000 UNIT/ML VIAL SQ SCH ×2 (06:22→17:26)
[2019-03-22] MEDS: Aspirin Enteric Coated 81 MG Tablet PO SCH (08:31)
[2019-03-22] MEDS ORDERED: levoFLOXacin 500 MG TABLET PO SCH (09:00)
[2019-03-22 09:27] LABS: Calcium 8.9 mg/dL (8.6-10.3); Potassium 5.2 mEq/L (3.5-5.1)
[2019-03-22] MEDS: Acetaminophen/Butalbital/CaffeineTABLET PO PRN ×3 (10:20→22:56)
[2019-03-22] MEDS ORDERED: *HR* FentaNYL (PF) 100 MCG/2 ML VIAL IVP ONE (10:29)
[2019-03-22] MEDS ORDERED: *HR* Promethazine 25 MG/ML VIAL IVP ONE (10:30)
--- NOTE | 2019-03-22 13:09 | Nephrology Progress Note ---
Date of Encounter: 03/22/19 Time of Encounter: 13:09 - Assessment and Plan (1) Status migrainosus Current Visit: Yes Status: Acute (2) ESRD (end stage renal disease) on dialysis Current Visit: Yes Status: Acute (3) Anemia Current Visit: Yes Status: Acute Qualifiers: Qualified Code(s): D64.9 - Anemia, unspecified Objective - Vital Signs Vital signs: Vital Signs Temp Pulse Resp BP Pulse Ox 03/22/19 12:21 97.5 F L 78 16 102/68 93 03/22/19 08:20 97.7 F 93 16 130/77 96 03/22/19 04:11 97.5 F L 85 16 129/74 94 03/22/19 01:35 97.7 F 74 15 107/60 94 03/21/19 22:18 95 03/21/19 20:47 97.6 F 76 16 101/62 95 03/21/19 15:52 98.0 F 84 18 100/43 96 Intake and Output 03/21/19 03/22/19 03/22/19 23:59 07:59 15:59 Intake Total 150 / 390 Output Total 0 / 0 Balance 150 / 390 Intake: Oral 150 / 390 Output: Urine 0 / 0 Other: Weight 71.7 kg Patient Weight 03/22/19 23:59 Weight 71.7 kg - Lab 03/21/19 01:49 03/22/19 09:00 Most recent lab results 03/22/19 09:00 Calcium 8.9 Consult Discharge Plan - Plan Referrals: Rudi Avila MD [Primary Care Provider] -
[2019-03-22] MEDS ORDERED: Albumin 25% 25gram/100mL 25 GM/100 ML IV.SOLN IVPB PRN (13:23)
[2019-03-22] MEDS ORDERED: 0.9 % Sodium Chloride 250 ML IVC PRN (13:23)
[2019-03-22] MEDS ORDERED: 0.9 % Sodium Chloride 1,000 ML PRIME SCH (13:30)
--- NOTE | 2019-03-22 13:32 | Internal Med Progress Note ---
Hospitalist Progress Note - Encounter Date of Encounter: 03/22/19 Time of Encounter: 13:30 - Subjective Interval History: Patient still in a lot of pain. Discussed case with family at bedside. Interested in having hospice set up for patient - Exam Vitals: Temp Pulse Resp BP Pulse Ox 97.5 F L 78 16 102/68 93 03/22/19 12:21 03/22/19 12:21 03/22/19 12:21 03/22/19 12:21 03/22/19 12:21 Exam: General: In acute pain today HEENT: No erythema of posterior pharynx. No exudates. Lymphatics: No mandibular or cervical lymphadenopathy Cardiovascular: RRR. No murmurs. No chest wall tenderness. Lungs: Clear to auscelltation bilaterally. Regular chest rise. Abdomen: Non-tender. No rebound or gaurding. Nl bowel sounds. Extremities: No edema. 2+ pulses radial and pedal pulses Skin: No rahses, abrasions, or contusions. Nl cap refill. Psych: Nl attention. A&Ox3 Neuro: courtroom reporter II-XII intact. 5/5 strength. Sensation to light touch decreased over entire L side. No PD. FNF and ROM intact. - Assessment and Plan (1) Status migrainosus Current Visit: Yes Status: Acute Assessment and Plan: Patient with history of end-stage renal disease and migraines as well as several stroke risk factors presents with intractable headache over the last 4 days in the setting of stable vitals, decreased sensation to light touch on the right side on physical exam, mild troponin elevation, and normal CT head. -MRI with evidence of acute stroke. Neuro consulted. Do not think this is the reason for her headache -Neuro believes pain is secondary to occipital neuralgia and recommended outpati ent occipital nerve blockade. Also agree with starting Depakote -Given above therapies will not act immediately, we will initiate Phenergan, higher pham of sumatriptan, Fioricet, and oxycodone as needed for headaches as well PLAN: - Pain control: Phenergan 10mg q6 prn Fioricet q4 prn Sumatriptan 100mg q2 prn Oxycodone 10mg for refractory ARRIAGA Will avoid NSAIDs given hx of GIB Depakote 500mg today for ARRIAGA prevention (2) Acute ischemic stroke Current Visit: Yes Status: Acute Assessment and Plan: Presented with severe headache and right-sided numbness. On MRI, patient with left occipital stroke. Neurology consulted and recommended continuation of current antiplatelet therapy. - Aspirin, Plavix, statin (3) End stage renal disease Current Visit: Yes Status: Chronic Assessment and Plan: On home 4-day per week dialysis. Hx of calciphylaxis. - Consult to Nephrology - plan to do HD today (4) Essential hypertension Current Visit: No Status: Chronic Assessment and Plan: Says her blood pressures below normal and metoprolol recently discontinued. BP normal even with holding amlodipine. - Hold antihypertensives for now (5) Elevated troponin Current Visit: Yes Status: Acute Assessment and Plan: Hx of multivessel CAD (last [facility] 2015, no stents). Hx of PAD s/p CEA on ASA and Plavix. Trop elevation and mild STD in setting of HD and no cp. - Trop peaked at .22 - Continue ASA and Plavix DVT Prophylaxis: heparin Internal Medicine: Result - Labs CBC & Chem 7: 03/21/19 01:49 03/22/19 09:00 Labs: BMP 03/22/19 09:00 Sodium 126 L Potassium 5.2 H Chloride 89 L Carbon Dioxide 22 L BUN 52 H Creatinine 6.08 H Glucose 95 Calcium 8.9 Cardiac Enzymes 03/21/19 Range/Units 13:45 Troponin I 0.20 H* (< 0.04) ng/mL - Impressions Impressions Brain MRI 03/21/19 10:49 IMPRESSION: 1. Small area of acute infarct adjacent to the occipital horn of the left lateral ventricle. No evidence of associated intracranial hemorrhage. 2. Chronic lacunar infarcts within bilateral basal ganglia, with areas of hemosiderin deposits. Chronic lacunar infarcts within bilateral cerebellum. 3. Chronic small vessel ischemic white matter disease and diffuse cerebral volume loss. The findings were sent to the Radiology Results Communication Center at 2:10 pm on 03/21/2019to be communicated to a licensed caregiver. D/ / Armond Culp MD / Armond Culp MD Interpreting Provider: Armond Culp MD Echocardiogram 03/21/19 14:33 Impressions: LVEF 50-55%. Normal LV chamber size, wall thickness and function. Atypical septal motion consistent with bundle branch block. Normal right ventricular structure and function. No evidence of a PFO with agitated saline contrast. Moderately calcified aortic valve leaflets. Unable to determine the number of leaflets. Moderate-severe aortic stenosis. Mild-moderate mitral regurgitation. Mild-moderate tricuspid regurgitation. Severe pulmonary hypertension. Left Ventricular Wall Motion: Rest Echo Findings All wall segments showed normal motion. Findings: Study Quality * Technically sub-optimal due to poor echocardiographic windows. ECG Findings * Normal sinus rhythm. Left Ventricle * LVEF 50-55%. * Normal LV chamber size, wall thickness and function. * Atypical septal motion consistent with bundle branch block. Right Ventricle * Normal right ventricular structure and function. Left Atrium * Mildly dilated left atrium. Right Atrium * Mildly dilated right atrium. Interatrial Septum * No evidence of a PFO with agitated saline contrast. Aortic Valve * Moderately calcified aortic valve leaflets. Unable to determine the number of leaflets. * No aortic regurgitation. * Moderate-severe aortic stenosis. Mitral Valve * Moderate mitral annular calcification * Mild-moderate mitral regurgitation. * Mild mitral stenosis suggested by Doppler. Mean gradient 5 mmHg. Visually, no significant stenosis. Tricuspid Valve * Normal tricuspid valve structure. * Mild-moderate tricuspid regurgitation. * Severe pulmonary hypertension. Pulmonic Valve * Normal pulmonic valve structure and function. * No pulmonic regurgitation. Aorta * Normally sized aortic root. Pericardium * The pericardium appears normal. IVC * Normal IVC dimensions and inspiratory collapse. Pulmonary Artery * Normal visualized portions of the main pulmonary artery. Consult Discharge Plan - Plan Referrals: Rudi Avila MD [Primary Care Provider] -
--- NOTE | 2019-03-22 13:38 | Neurology Progress Note ---
Date of Encounter: 03/22/19 Time of Encounter: 13:36 Assessment and Plan (1) Headache Current Visit: No Status: Chronic As stated previously, the patient's headaches mostly represent a type of right occipital neuralgia and is a likely not related to the occurrence of CVA which is likely subacute in nature. During acute phase of posterior circulation s troke, patient do have higher risk of developing cervical genic pain which showed improve after acute phase of stroke which usually last no more than 10-14 days. Treatment of such headaches is usually empirical and symptomatic. If right skull pain/headache persist in the future the patient can be given right occipital nerve blockade procedure which can be done as an outpatient. I would like to see is a patient after discharge in the next few days or few weeks after discharge. We will sign off at this time please call if any questions. Qualifiers: Qualified Code(s): R51 - Headache (2) CVA (cerebral vascular accident) Current Visit: Yes Status: Acute Patient completed stroke workup including echocardiogram, CT angiogram of head and neck and results are discussed with the patient and her family members. There does not appear to be definitive indication for anticoagulation therapy at this time. Would recommend continue dual antiplatelet therapy in the form of aspirin and Plavix and statin therapy and pursue risk factor modification. All questions answered I spent 15 minutes face to face with the patient, of which more than 50% of time was spent in counseling and coordination of care Qualifiers: Qualified Code(s): I63.9 - Cerebral infarction, unspecified Subjective Principal diagnosis: CVA and headache Interval history: Patient is seen and examined at the bedside. She was given fentanyl for the treatment of pain therefore she is currently sleeping. Apparently, her headaches responded to the use of fentanyl. Patient completed echocardiogram which demonstrated left ventricular ejection fraction of 55%. There is also evidence of valvular diseases in the report. Please refer to the formal report for details. No evidence of PFO noted. There is also evidence of severe pulm onary hypertension. So far there is no strong indication for the use of anti- coagulation therapy. Patient also completed CT angiogram of the neck and head which demonstrated about 60% of right ICA stenosis and less prominent stenosis to the left side. There is no significant flow limiting stenosis in the posterior circulation. The right-sided ICA stenosis is likely asymptomatic since the stroke is on the left side. Objective - Constitutional Vitals: Temp Pulse Resp BP Pulse Ox 97.5 F L 78 16 102/68 93 03/22/19 12:21 03/22/19 12:21 03/22/19 12:21 03/22/19 12:21 03/22/19 12:21 - Neurological Exam Sensorimotor examination: Present: intact Motor Examination: Present: grossly full strength in all extremities Motor examination - right side: 5/5: deltoids, biceps, triceps, wrist flexion, wrist extension, mystery shopper, hip flexors, tibialis Anterior, quadriceps, toe extension (EHL), plantarflexion Motor examination - left side: 5/5: deltoids, biceps, triceps, wrist flexion, wrist extension, hip flexors, mystery shopper, quadriceps, tibialis Anterior, toe extension (EHL), plantarflexion Sensation intact: Present: intact Posture: Present: other (none) Reflex and gait examination: intact Reflexes: Biceps: 2+, Triceps: 2+, Brachioradialis: 2+, Patella: 2+, Achilles: 2+ Mental Status Examination: Present: drowsy (Patient is drowsy due to the use of fentanyl. Otherwise examination not changed from yesterday) Results - Laboratory Findings CBC and BMP: 03/21/19 01:49 03/22/19 09:00 Abnormal lab findings: Abnormal lab results WBC 4.2 K/mcL (4.3-11.1) L 03/21/19 01:49 RBC 2.77 M/mcL (3.82-4.97) L 03/21/19 01:49 Hgb 9.8 g/dL (11.5-15.4) L D 03/21/19 01:49 Hct 28.8 % (35.3-44.9) L 03/21/19 01:49 MCV 104.0 fL (83.0-100.0) H 03/21/19 01:49 MCH 35.4 pg (28.0-33.3) H 03/21/19 01:49 RDW 16.3 % (11.5-14.5) H 03/21/19 01:49 MPV 9.2 fL (9.4-12.4) L 03/20/19 14:54 Lymphocytes # 0.2 K/mcL (0.6-4.6) L 03/21/19 01:49 Sodium 126 mEq/L (136-145) L 03/22/19 09:00 Potassium 5.2 mEq/L (3.5-5.1) H 03/22/19 09:00 Chloride 89 mEq/L (98-107) L 03/22/19 09:00 Carbon Dioxide 22 mEq/L (23-29) L 03/22/19 09:00 BUN 52 mg/dL (8-23) H 03/22/19 09:00 Creatinine 6.08 mg/dL (0.60-1.20) H 03/22/19 09:00 Est GFR ( Amer) 8 (> 60) L 03/22/19 09:00 Est GFR (Non-Af Amer) 7 (> 60) L 03/22/19 09:00 Glucose 260 mg/dL (70-105) H 03/21/19 01:49 Calculated Osmolality 276 (280-300) L 03/22/19 09:00 ALT 4 Units/L (7-52) L 03/20/19 14:54 Troponin I 0.20 ng/mL (< 0.04) H* 03/21/19 13:45 Hep Bs Antibody < 3.10 mIU/mL (10.00-) L 03/21/19 07:56 Consult Discharge Plan - Plan Referrals: Rudi Avila MD [Primary Care Provider] -
[2019-03-22] MEDS ORDERED: Albumin 25% 12.5gm/50mL 25.0 GM/100 ML IV.SOLN ONE (16:28)
[2019-03-22] MEDS: SUMAtriptan succinate 50 MG TABLET PO PRN (20:21)
[2019-03-22] MEDS: Divalproex (24 HR) 500 MG TABLET PO SCH (20:21)
[2019-03-23] MEDS: *HR* OxyCODONE Immed Rel 5 MG TABLET PO PRN ×2 (01:53→08:50)
[2019-03-23] MEDS: *HR* Heparin 5,000 UNIT/ML VIAL SQ SCH (05:23)
[2019-03-23] MEDS: Acetaminophen/Butalbital/CaffeineTABLET PO PRN ×2 (05:25→11:39)
[2019-03-23 05:34] LABS: Hematocrit 30.1 % (35.3-44.9); Hemoglobin 9.9 g/dL (11.5-15.4); Mean Corpuscular HGB Conc 32.9 g/dL (31.6-35.5); Mean Corpuscular Volume 106.4 fL (83.0-100.0); Mean Platelet Volume 9.5 fL (9.4-12.4); Platelet Count 205 K/mcL (140-400); Red Blood Count 2.83 M/mcL (3.82-4.97); Red Cell Distribution Width 16.5 % (11.5-14.5)
[2019-03-23 05:42] LABS: White Blood Count 7.1 K/mcL (4.3-11.1)
[2019-03-23 05:55] LABS: Calcium 8.8 mg/dL (8.6-10.3); Potassium 4.2 mEq/L (3.5-5.1)
[2019-03-23 08:24] VITALS: BP 133/78
[2019-03-23] MEDS: SUMAtriptan succinate 50 MG TABLET PO PRN (08:37)
[2019-03-23] MEDS: Aspirin Enteric Coated 81 MG Tablet PO SCH (08:39)
--- NOTE | 2019-03-23 10:08 | Nephrology Progress Note ---
Date of Encounter: 03/23/19 Time of Encounter: 10:07 - Assessment and Plan (1) Status migrainosus Current Visit: Yes Status: Acute (2) ESRD (end stage renal disease) on dialysis Current Visit: Yes Status: Acute (3) Anemia Current Visit: Yes Status: Acute Qualifiers: Qualified Code(s): D64.9 - Anemia, unspecified Subjective Principal diagnosis: CVA and headache Objective - Vital Signs Vital signs: Vital Signs Temp Pulse Resp BP Pulse Ox 03/23/19 08:22 87 12 133/78 95 03/23/19 03:30 98.6 F 79 17 117/75 95 03/22/19 20:12 97 03/22/19 20:11 97.9 F 90 16 145/77 97 03/22/19 19:28 125/54 03/22/19 19:20 118/50 03/22/19 19:05 129/56 03/22/19 18:50 133/58 03/22/19 18:35 141/69 03/22/19 18:20 132/59 03/22/19 18:05 131/59 03/22/19 17:50 139/66 03/22/19 17:35 137/65 03/22/19 17:20 125/54 03/22/19 17:05 121/53 03/22/19 16:50 130/62 03/22/19 16:35 98.1 F 18 123/60 03/22/19 16:00 98.1 F 81 16 120/75 95 03/22/19 12:21 97.5 F L 78 16 102/68 93 Intake and Output 03/22/19 03/23/19 03/23/19 23:59 07:59 15:59 Intake Total 720 / 720 Output Total 2600 / 2600 Balance -1880 / -1880 Intake: Oral 120 / 120 Intake, Rinseback and Flushes 600 / 600 Output: Urine 0 / 0 Total Dialysis (HD) Output 2600 / 2600 Other: Weight 73 kg Hemodialysis Net Fluid Removed 2000 (mL) Patient Weight 03/23/19 23:59 Weight 73 kg - Lab 03/23/19 04:46 03/23/19 04:46 Most recent lab results 03/23/19 04:46 Calcium 8.8 Consult Discharge Plan - Plan Referrals: Rudi Avila MD [Primary Care Provider] -
--- NOTE | 2019-03-23 10:51 | Discharge Summary ---
Date of Encounter: 03/23/19 Time of Encounter: 10:43 - Discharge Diagnosis (1) Status migrainosus Priority: Primary Status: Acute (2) Acute ischemic stroke Priority: Secondary Status: Acute (3) End stage renal disease Priority: Secondary Status: Chronic (4) Essential hypertension Priority: Secondary Status: Chronic (5) Elevated troponin Priority: Secondary Status: Acute Hospital course: Ms. Eng is a 73 year old female with history of end-stage renal disease, migraines, and PAD s/p CEA on ASA and Plavix presented with intractable headache and found to have a subacute left occipital lobe stroke. Neurology was consulted - believe stroke was not what was causing the acute headache but instead patient was suffering from occipital neuralgia and recommend an outpatient occipital nerve block for this. In the meantime, patient was started on Depakote for headache control and discharged on many prn medications until Depakote takes full effect and she is able to get in for the nerve block. With regards to her stroke, had minimal deficits (only mild R-sided numbness) and neurology recommended continuation of duel antiplatelet agents (on these for severe PAD). Discharge discussed with: patient - Time Spent with Patient Total time spent providing and/or coordinating discharge services: 70 minutes Time spent: Greater than 30 minutes - Discharge Medications Prescriptions: New SUMAtriptan succinate [Imitrex] 100 mg PO Q2H PRN #30 tablet PRN Reason: Migraine Headache OxyCODONE Immed Rel [Roxicodone 5 MG] 10 mg PO Q4HR PRN 7 Days #30 tablet PRN Reason: Pain Divalproex (24 HR) [Depakote ER (24 HR)] 500 mg PO HS #30 tab.er.24h Continued Clopidogrel [Plavix] 75 mg PO DAILY tablet Multivitamin [Multivitamins] 1 cap PO DAILY Aspirin Enteric Coated [Aspirin EC] 81 mg PO DAILY #30 tablet. Atorvastatin Calcium [Lipitor] 20 mg PO HS Cinacalcet [Sensipar] 30 mg PO DAILY Folic Acid/Vit Bcomp,C [Renal-Tulio Tablet] 0.8 mg PO DAILY Promethazine [Phenergan] 25 mg PO Q8H PRN PRN Reason: Nausea Butalbital/Aspirin/Caffeine [Xvgoumoaow-MND-Dhfjnxwk Cap] 1 cap PO Q4H PRN PRN Reason: Migraine Headache Discontinued SUMAtriptan succinate [Imitrex] 25 mg PO Q2H PRN #30 tablet PRN Reason: Migraine Headache predniSONE [PredniSONE] See Taper PO TAPER levoFLOXacin [Levaquin] 500 mg PO Q48H Home Medications: Clopidogrel [Plavix] 75 mg PO DAILY tablet 10/16/16 [Rx] Multivitamin [Multivitamins] 1 cap PO DAILY 09/03/17 [History] Aspirin Enteric Coated [Aspirin EC] 81 mg PO DAILY #30 tablet. 01/22/18 [Rx] Atorvastatin Calcium [Lipitor] 20 mg PO HS 08/14/18 [History] Cinacalcet [Sensipar] 30 mg PO DAILY 08/14/18 [History] Folic Acid/Vit Bcomp,C [Renal-Tulio Tablet] 0.8 mg PO DAILY 08/14/18 [History] Promethazine [Phenergan] 25 mg PO Q8H PRN 08/14/18 [History] Butalbital/Aspirin/Caffeine [Vcsqqjtkig-FAY-Mtxllmgv Cap] 1 cap PO Q4H PRN 03/21/19 [History] Divalproex (24 HR) [Depakote ER (24 HR)] 500 mg PO HS #30 tab.er.24h 03/23/19 [Rx] OxyCODONE Immed Rel [Roxicodone 5 MG] 10 mg PO Q4HR PRN 7 Days #30 tablet 03/23/19 [Rx] SUMAtriptan succinate [Imitrex] 100 mg PO Q2H PRN #30 tablet 03/23/19 [Rx] Allergies/Adverse Reactions: Allergy/AdvReac Type Severity Reaction Status Date / Time Penicillins Allergy Hives Verified 08/14/18 13:40 Date of admission: 03/22/19 14:18 Primary care physician: Rudi Avila MD Consults: 03/21/19 08:05 Consult to Nephrology [CONS] Routine Consulting Provider: [facility]/PAMELA/ULISES/PAULINO Reason for Consult: dialysis patient Call Completed: No 03/21/19 09:56 Consult to Nurse Navigator [CONS] Routine Comment: hd 03/22/19 13:30 Consult to Dialysis [CONS] ONCE 03/23/19 09:52 Consult to Neurology [CONS] Routine Consulting Provider: [facility] Reason for Consult: Acute stroke Call Completed: Yes - Constitutional Vitals: Temp Pulse Resp BP Pulse Ox 98.6 F 87 12 133/78 95 03/23/19 03:30 03/23/19 08:22 03/23/19 08:22 03/23/19 08:22 03/23/19 09:47 Exam: General: In no acute distress HEENT: No erythema of posterior pharynx. No exudates. Lymphatics: No mandibular or cervical lymphadenopathy Cardiovascular: RRR. No murmurs. No chest wall tenderness. Lungs: Clear to auscelltation bilaterally. Regular chest rise. Abdomen: Non-tender. No rebound or gaurding. Nl bowel sounds. Extremities: No edema. 2+ pulses radial and pedal pulses Skin: No rahses, abrasions, or contusions. Nl cap refill. Psych: Nl attention. A&Ox3 Neuro: risk management manager II-XII intact. 5/5 strength. Sensation to light touch decreased over entire R side. No PD. FNF and ROM intact. - Patient Status Disposition: Home, Self-Care Condition: Fair Functional capacity at discharge: independent ambulation Overall status at discharge: patient is progressing back to baseline - Discharge Instructions Follow Up With: Rudi Avila MD [Primary Care Provider] - - Diet and Activity Activity: increase activity as tolerated Diet: low salt diet - Stroke Is the patient on any antithrombotics?: Yes Are there any contradictions to antithrombotics?: No Contraindication Not Initiating IV-Tpa: Medical contraindication (outside of tPA window) Has Patient Been Evaluated by Rehab for Stroke: No Contraindication Rehab Services Not Assessed: Returned to Prior Level of Function
--- NOTE | 2019-03-24 12:42 | Electrocardiograph Report ---
[place] [id number] Test Date: 2019-03-20 Pat Name: Zenaida Eng Department: EXAM14 Room: 2A51 Gender: F Nib Assembler: : 1945 Requested By: Mathieu Guillaume Order Number: [id number] Reading MD: Fabián Mack Measurements Intervals [place] Rate: 87 P: 50 ME: 190 QRS: -65 QRSD: 129 T: 78 QT: 432 QTc: 520 Interpretive Statements Sinus rhythm RBBB and LAFB Electronically Signed On 03-24-2019 12:41:10 EDT by Fabián Mack
--- NOTE | 2019-03-24 12:53 | Electrocardiograph Report ---
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
== END 2019-03-23 13:16 | disposition home or self-care (01) | DRG 102 ==
LOC: SUATTDRO → EMEROOARM 14:21 → 2ANU 14:21 → SUATTDRO 18:39 → 2ANU 20:56
PROVIDERS: ADMIT Internal Medicine; ATTEND Internal Medicine

== ENCOUNTER 2019-07-22 21:18 | Inpatient (IN) ==
[2019-07-22] MEDS ORDERED: 0.9 % Sodium Chloride 500 ML IVC ONE ×2 (21:27→22:27)
[2019-07-22 22:01] LABS: Basophils # 0.1 K/mcL (0.0-0.2); Basophils % 0.5 %; Eosinophils # 0.2 K/mcL (0.0-0.6); Hematocrit 32.3 % (35.3-44.9); Hemoglobin 10.8 g/dL (11.5-15.4); Immature Granulocytes % 0.6 % (0-4); Lymphocytes # 1.1 K/mcL (0.6-4.6); Lymphocytes % 7.4 %; Mean Corpuscular HGB Conc 33.4 g/dL (31.6-35.5); Mean Corpuscular Hemoglobin 35.4 pg (28.0-33.3); Mean Corpuscular Volume 105.9 fL (83.0-100.0); Mean Platelet Volume 10.7 fL (9.4-12.4); Monocytes # 0.9 K/mcL (0.0-1.3); Monocytes % 6.1 %; Neutrophils # 12.1 K/mcL (1.6-8.9); Nucleated Red Blood Cells 0.6 /100 WBC (0); Platelet Count 196 K/mcL (140-400); Red Blood Count 3.05 M/mcL (3.82-4.97); Red Cell Distribution Width 14.7 % (11.5-14.5); Segmented Neutrophils % 84.4 %; White Blood Count 14.3 K/mcL (4.3-11.1)
[2019-07-22 22:09] LABS: VBG HCO3 24 mEq/L (21-27); VBG PCO2 36 mmHg (41-51); VBG PH 7.43 pH Units (7.32-7.42); VBG PO2 211 mmHg (25-50)
[2019-07-22 22:27] LABS: Albumin 3.7 g/dL (3.5-5.7); Albumin/Globulin Ratio 1.3 (1.1-2.2); Bilirubin,Total 0.6 mg/dL (0.3-1.0); Calcium 9.5 mg/dL (8.6-10.3); Globulin 2.9 g/dL (2.4-3.5); Magnesium 2.2 mg/dL (1.6-2.6); Phosphorous 6.5 mg/dL (2.7-4.5); Potassium 4.9 mEq/L (3.5-5.1); Total Protein 6.6 g/dL (6.4-8.9); Troponin I 2.12 ng/mL (< 0.04)
[2019-07-22] MEDS ORDERED: Piperacillin/Tazobactam 3.375 GM in D5% in Water (Mini-Bag+) 100 ML IVPB ONE (22:28)
[2019-07-22 22:34] LABS: Thyroid Stimulating Hormone 3.822 mcIU/mL (0.340-5.600)
[2019-07-22] MEDS ORDERED: Cefepime HCl 1,000 MG in Water for inj. (sterile) 10 ML IVP ONE (22:34)
[2019-07-22] MEDS ORDERED: 0.9 % Sodium Chloride 250 ML ONE (22:43)
[2019-07-22] MEDS ORDERED: *HR* Norepinephrine 4 MG/4 ML VIAL IVC ONE (22:43)
[2019-07-22 22:45] LABS: Bilirubin,Urine Moderate (Negative); Blood,Urine Large (Negative); Clarity,Urine Turbid (Clear); Glucose,Urine (UA) Normal (Normal); Ketones,Urine Trace mg/dL (Negative); Leukocyte Esterase,Urine Large (Negative); Nitrite,Urine Negative (Negative); Protein,Urine >=1000 mg/dL (Neg-Trace); Specific Gravity,Urine 1.021 (1.010-1.025); Urobilinogen,Urine Normal (Normal)
[2019-07-22 22:49] LABS: Color,Urine Brown (Yellow)
[2019-07-23] MEDS ORDERED: *HR* Heparin 5,000 UNIT/ML VIAL IVP ONE (00:02)
[2019-07-23] MEDS ORDERED: *HR* Heparin 5,000 UNIT/ML VIAL IVP PRN ×2 (00:02)
[2019-07-23] MEDS: Norepinephrine 4 MG in 0.9 % Sodium Chloride 250 ML IVC SCH ×2 (00:14→11:18)
[2019-07-23] MEDS ORDERED: Heparin 25,000 UNIT/250 ML D5W 25,000 UNIT/250 ML IV.SOLN IVC SCH (00:15)
[2019-07-23 01:34] LABS: INR 1.2
[2019-07-23] MEDS ORDERED: Naloxone 0.4 MG/ML INJ IVP PRN (01:51)
[2019-07-23 03:31] LABS: Troponin I 1.88 ng/mL (< 0.04)
[2019-07-23] MEDS ORDERED: 0.9 % Sodium Chloride 1,000 ML IVC SCH (04:15)
[2019-07-23] MEDS ORDERED: Azithromycin 500 MG in 0.9 % Sodium Chloride 250 ML IVPB SCH (05:00)
[2019-07-23 06:01] LABS: Calcium 8.4 mg/dL (8.6-10.3); Potassium 4.9 mEq/L (3.5-5.1)
[2019-07-23 06:09] LABS: Basophils # 0.1 K/mcL (0.0-0.2); Basophils % 0.3 %; Eosinophils # 0.1 K/mcL (0.0-0.6); Eosinophils % 0.3 %; Hematocrit 30.8 % (35.3-44.9); Hemoglobin 10.3 g/dL (11.5-15.4); Immature Granulocytes % 0.4 % (0-4); Lymphocytes # 0.8 K/mcL (0.6-4.6); Lymphocytes % 4.6 %; Mean Corpuscular HGB Conc 33.4 g/dL (31.6-35.5); Mean Corpuscular Hemoglobin 35.8 pg (28.0-33.3); Mean Corpuscular Volume 106.9 fL (83.0-100.0); Mean Platelet Volume 10.4 fL (9.4-12.4); Monocytes # 0.8 K/mcL (0.0-1.3); Monocytes % 4.7 %; Neutrophils # 15.5 K/mcL (1.6-8.9); Nucleated Red Blood Cells 0.4 /100 WBC (0); Platelet Count 204 K/mcL (140-400); Red Blood Count 2.88 M/mcL (3.82-4.97); Red Cell Distribution Width 14.9 % (11.5-14.5); Segmented Neutrophils % 89.7 %; White Blood Count 17.3 K/mcL (4.3-11.1)
[2019-07-23] MEDS ORDERED: MetroNIDAZOLE 500 MG/100 ML 500 MG/100 ML BAG IVPB SCH (08:00)
[2019-07-23] MEDS ORDERED: 0.9 % Sodium Chloride 250 ML IVC PRN (08:54)
[2019-07-23] MEDS ORDERED: Aspirin Enteric Coated 81 MG Tablet PO SCH (09:00)
[2019-07-23] MEDS ORDERED: 0.9 % Sodium Chloride 1,000 ML PRIME SCH (09:00)
[2019-07-23 09:43] LABS: Hepatitis B Surface Antibody < 3.10 mIU/mL
[2019-07-23 09:53] LABS: Hepatitis B Surface Antigen Nonreactive (Nonreactive)
[2019-07-23] MEDS ORDERED: Amiodarone Premix 360 MG/200 ML BAG IVC ONE (10:11)
[2019-07-23] MEDS ORDERED: Amiodarone Premix 150 MG/100 ML BAG IVPB ONE (10:11)
[2019-07-23 13:28] VITALS: BP 106/47
[2019-07-23] MEDS ORDERED: Aminoglycoside Consult 1 EACH MC ONE (13:37)
[2019-07-23] MEDS ORDERED: Amiodarone Premix 360 MG/200 ML BAG IVC SCH (16:00)
[2019-07-23] MEDS ORDERED: Cefepime HCl 500 MG in Water for inj. (sterile) 10 ML IVP SCH (20:00)
== END 2019-07-23 13:38 | disposition short-term general hospital (02) | DRG 871 ==
LOC: EMEROOARM 21:18 → ICNU 07-23 01:10
PROVIDERS: ADMIT Internal Medicine; ATTEND Internal Medicine